=== PATIENT | female | born 1955 | race Caucasian/White ===

== ENCOUNTER → 2017-09-06 13:19 | Outpatient (CLI) | payer OTHER, SELFPAY ==
--- NOTE | 2017-09-06 13:22 | XR_ITS ---
EXAM: XR lumbar spine 2-3V HISTORY: spine compression fracture ITS.REASON: compression fractures ORDERING PHYSICIAN: Piyush Paul MD PATIENT AGE: 62 years COMPARISON: None FINDINGS: No previous exams are available for comparison. There has been prior vertebral plasty at L1 with bone cement along the mid and anterior aspect of L1, some of which may be extruded into the disc space superiorly. There is loss of height anteriorly of L1 of approximately 30-40%. No obvious retropulsion however, the patient is moderately rotated on the lateral view. Mild kyphosis is present at L1. The remaining lumbar spine has an unremarkable appearance aside from mild facet hypertrophic change at L5-S1. 2 mm stone is noted in the upper pole the right kidney IMPRESSION: Prior vertebral plasty at L1 with early percent wedge compression changes.
--- NOTE | 2017-09-06 13:22 | XR_ITS ---
XR pelvis 1-2V HISTORY: Follow-up fracture ITS.REASON: pubic ramus fx ORDERING PHYSICIAN: Piyush Paul MD PATIENT AGE: 62 years COMPARISON: None FINDINGS: A vertical lucency is present to the mid aspect of the left pubic ramus consistent with a nondisplaced fracture.. No previous exams are made available for comparison. IMPRESSION: Nondisplaced left suprapubic ramus fracture
== END ==
PROVIDERS: PCP Family Medicine; Visit Provider Orthopaedic Surgery
DX: S32.599A Other specified fracture of unspecified pubis, initial encounter for closed fracture (principal); S32.000A Wedge compression fracture of unspecified lumbar vertebra, initial encounter for closed fracture
CPT/HCPCS: 72100; 72170

== ENCOUNTER → 2017-10-04 11:18 | Outpatient (CLI) | payer OTHER, SELFPAY ==
--- NOTE | 2017-10-04 11:23 | XR_ITS ---
XR shoulder LT min 2V HISTORY: Left shoulder pain ITS.REASON: Possible fracture ORDERING PHYSICIAN: Piyush Paul MD PATIENT AGE: 62 years COMPARISON: FINDINGS: No fracture or dislocation. No lytic or blastic change. There is normal mineralization. The joint spaces are well-preserved. No significant degenerative/arthritic changes. No erosive changes evident. IMPRESSION: Negative, no acute finding
== END ==
PROVIDERS: PCP Family Medicine; Visit Provider Orthopaedic Surgery
DX: S42.253A Displaced fracture of greater tuberosity of unspecified humerus, initial encounter for closed fracture (principal)
CPT/HCPCS: 73030

== ENCOUNTER 2017-11-15 08:00 | Outpatient (RCR) | payer OTHER, SELFPAY | END 2017-11-15 08:01 | disposition home or self-care (01) | LOC: OT 08:00 | PROVIDERS: Family Provider Family Medicine; PCP Family Medicine; Visit Provider Orthopaedic Surgery | DX: M75.42 Impingement syndrome of left shoulder; M79.602 Pain in left arm | CPT/HCPCS: 97014; 97033; 97110; 97166; G0283 ==

== ENCOUNTER → 2018-05-09 08:48 | Outpatient (CLI) | payer OTHER, SELFPAY ==
--- NOTE | 2018-05-09 08:51 | MM_ITS ---
MM Dig screening mamm BI w/CAD ORDERING PHYSICIAN : Chelsea Nieves PATIENT AGE: 63 years GENDER: Female COMPARISON: I have the technologist again [previous mammograms but apparently they have been purged in accordance with administrative guidelines. There is a Screening CT chest December 2016 only minimal benefit for comparison INDICATION: ITS.REASON: SCREENING no hormones. No new complaints. Noncontributory family history. Patient has had skin cancer. No history of breast cancer with her or family. TECHNIQUE: Standard CC and MLO images were obtained. R2 CAD reviewed. FINDINGS: Moderate breast density bilaterally. Minimal nodularity bilaterally. No suspicious dominant mass or suspicious calcifications. Small likely benign nodule upper outer quadrant right breast. Tiny faint calcifications both breasts most numerous and evident on right- & most likely reflect benign adenosis. Prior studies of been purged with none available for comparison RIGHT BREAST:. No suspicious findings . Likely small benign intramammary node- 4.5 mm smooth margin ovoid density upper-outer quadrant right breast. There are also some small calcifications at the deep central and lateral right breast which are most likely reflecting adenosis however because these features I would suggest a follow-up right mammogram in 6 months to establish baseline stability LEFT BREAST:. No suspicious findings.. Follow-up in one year would be recommended and encouraged IMPRESSION: No prior studies. Moderate density moderate asymmetric breast. Right breast.. Suggest follow-up right mammogram in 6 months-to confirm stability of a small likely intramammary lymph node at upper-outer quadrant;. & Also to confirm baseline stability of numerous tiny scattered faint calcifications most likely reflecting benign adenosis . Left breast. Follow-up one year adequate & should be encouraged. BI-RADS Category: 3 Probably Benign Finding Short Term Follow-up RECOMMENDED FOLLOW-UP: 6M 6 MONTH FOLLOW-UP (A letter has been sent to the patient regarding results of the study.)
== END ==
PROVIDERS: PCP Family Medicine; Visit Provider Nurse Practitioner Women's Health
DX: Z12.31 Encounter for screening mammogram for malignant neoplasm of breast (principal)
CPT/HCPCS: 77067

== ENCOUNTER → 2018-10-11 14:05 | Outpatient (CLI) | payer OTHER, SELFPAY ==
--- NOTE | 2018-10-11 14:11 | MM_ITS ---
MM Dig mamm DX unilat RT CAD INDICATION: 6 month follow-up probably benign findings on last mammogram ORDERING PHYSICIAN: Chelsea Nieves PATIENT AGE: 63 years COMPARISON: 05/09/2018, TECHNIQUE: Standard images performed along with spot compression views and right breast ultrasound FINDINGS: Average fibroglandular tissue. Scattered benign-appearing nodular opacities are once again noted in the outer aspect of the right breast with asymmetric density noted centrally. 2 benign-appearing nodules in the outer right breast 1 mid and one posterior age measuring 5 mm. Asymmetric density in the retroareolar region as seen on the cc view appears to compress out on the one of the spot compression views with some persistent asymmetric density on another spot compression view not readily apparent in the orthogonal plane. No change in the faint calcifications in the central aspect of the breast posteriorly Right breast ultrasound: There is a 9 mm cyst at 8:00 with an additional 3 mm cyst at 7:00. No retroareolar abnormality apparent to correspond to the mammographic area of asymmetric density. IMPRESSION: Probably benign findings. Recommend continued 6 month mammographic and sonographic follow-up. No convincing evidence of malignancy. BI-RADS Category: 3 Probably Benign Finding Short Term Follow-up RECOMMENDED FOLLOW-UP: 6M - 6 MONTH FOLLOW-UP (A letter has been sent to the patient regarding results of the study.)
== END ==
PROVIDERS: PCP Family Medicine; Visit Provider Nurse Practitioner Women's Health
DX: R92.8 Other abnormal and inconclusive findings on diagnostic imaging of breast (principal)
CPT/HCPCS: 76641; 77065

== ENCOUNTER → 2019-05-10 14:10 | Outpatient (CLI) | payer MEDICARE, SELFPAY ==
--- NOTE | 2019-05-10 | US_ITS ---
PROCEDURE: US BREAST RT COMPLETE CLINICAL INDICATION: Six-month follow-up cystic-appearing lesions right breast COMPARISON: BREASTRT US breast RT complete from 10/11/2018 FINDINGS: There are several small benign-appearing cystic lesion with stable appearing lesions at the a 7 8 and 9 o'clock positions. There is new benign-appearing cystic lesion 12 o'clock position near the nipple measuring 0.4 x 0.2 by 0.3 cm. There is a similar benign-appearing tiny cystic lesion at the 3 o'clock position near the nipple measuring 0.3 x 0.3 by 0.4 cm. There is benign-appearing oval hypoechoic cystic-appearing lesion at the 6 o'clock position near the nipple measuring 0.5 by point by 0.6 cm. This could in fact be two small cysts abutting one another. There is a small hypoechoic lesion at the 11 o'clock position near the nipple with internal echoes likely representing a tiny complex cyst measuring 0.4 x 0.3 by 0.4 cm. There is no suspicious solid lesion. There are normal appearing nodes in the axilla. IMPRESSION: Multiple benign-appearing cystic lesions compatible with the findings seen on the mammogram performed the same date and feel no additional evaluation is indicated and recommend the patient continue with yearly screening mammography Dictated by: Dr. Jamie Mera MD 05/13/2019 08:[address] Jamie Mera MD in [place] 05/13/2019 08:39
--- NOTE | 2019-05-10 14:16 | MM_ITS ---
PROCEDURE: MM DIG MAMM BI DX W/CAD CLINICAL INDICATION: Six-month follow-up for nodular lesions right breast COMPARISON: [facility] MM Dig screening mamm BI w/CAD from 05/09/2018 DIG MAMM-DX UNI-RT from 10/11/2018 TECHNIQUE: Spot-compression MLO and CC views, standard MLO and CC views left breast FINDINGS: , scattered fibroglandular densities are seen throughout both breasts. Again noted are small asymmetric nodular densities upper outer quadrant right breast which are stable unchanged from the previous exam. There are few stable tiny nodular densities outer quadrant left breast as well. There is no new or suspicious lesions seen in either breast. Ultrasound of the right breast performed the same date showed stable benign-appearing cystic lesions unchanged from previous ultrasound exam. There are no suspicious microcalcifications. IMPRESSION: Stable six-month follow-up exam right breast and stable yearly screening exam left breast BI-RAD Category: 2 Benign Finding(s) FOLLOW-UP: 1YR 1 Year Follow-up (A letter has been sent to the patient regarding results of the study.) Dictated by: Dr. Jamie Mera MD 05/13/2019 08:[address] Jamie Mera MD in [place] 05/13/2019 08:34
== END ==
PROVIDERS: PCP Family Medicine; Visit Provider Nurse Practitioner Women's Health
DX: R92.8 Other abnormal and inconclusive findings on diagnostic imaging of breast (principal)
CPT/HCPCS: 76641; 77066

== ENCOUNTER → 2019-07-17 09:35 | Outpatient (CLI) | payer MEDICARE, SELFPAY ==
--- NOTE | 2019-07-17 09:40 | XR_ITS ---
PROCEDURE: XR DEXA AXIAL SKELETON CLINICAL HISTORY: POST MENOPAUSAL COMPARISON: No exams were available for comparison FINDINGS: Osteopenia of the left hip with a T-score -2.3 and BMD of 0.658 Osteopenia of right hip with a T-score of -1.9 and BMD of 0.636 Lumbar spine density not accurate due to overlying methylmethacrylate and L1 IMPRESSION: Osteopenia Dictated by: Claudy Tomas MD 07/17/2019 15:46 Electronically signed by Claudy Tomas MD in [place] 07/17/2019 15:46
== END ==
PROVIDERS: PCP Family Medicine; Visit Provider Nurse Practitioner Women's Health
DX: Z78.0 Asymptomatic menopausal state (principal)
CPT/HCPCS: 77080

== ENCOUNTER → 2019-11-06 10:24 | Outpatient (CLI) | payer MEDICARE, SELFPAY | PROVIDERS: PCP Family Medicine; Visit Provider Nurse Practitioner Family | DX: G47.33 Obstructive sleep apnea (adult) (pediatric) (principal) | CPT/HCPCS: 94762 ==

== ENCOUNTER → 2019-11-12 14:34 | Outpatient (CLI) | payer MEDICARE, SELFPAY | PROVIDERS: PCP Family Medicine; Visit Provider Specialist | DX: G47.33 Obstructive sleep apnea (adult) (pediatric) (principal) | CPT/HCPCS: 94762 ==

== ENCOUNTER → 2019-11-13 08:53 | Outpatient (CLI) | payer MEDICARE, SELFPAY ==
[2019-11-13 10:52] LABS: Coronavirus 19 IgG Antibody Negative (Negative); Coronavirus 19 IgM Antibody Negative (Negative)
== END ==
PROVIDERS: Visit Provider Surgery
DX: Z01.818 Encounter for other preprocedural examination (principal); Z12.11 Encounter for screening for malignant neoplasm of colon
CPT/HCPCS: 36415; 86328

== ENCOUNTER 2019-11-14 07:29 | Day surgery (SDC) | payer MEDICARE, SELFPAY ==
--- NOTE | 2019-11-12 11:04 | SUR.PREOP ---
11/12/2019 @ 1100--PHONE CALL MADE TO PATIENT. PATIENT UNDERSTANDS THAT LAB WORK AND COVID TESTING NEEDS TO BE COMPLETED @ 0900 ON 11/13/2019. PATIENT UNDERSTANDS IF LAB WORK AND COVID-19 TESTS ARE NOT COMPLETED BY 12PM ON THAT DATE, THE SURGERY SCHEDULED WILL BE CANCELLED AND RESCHEDULED FOR ANOTHER TIME.
[2019-11-13 12:51] VITALS: BMI 30.2
[2019-11-14 07:45] VITALS: BP 128/62; PULSE 100; RESP 18; TEMP 36.6; O2SAT 94; BMI 30.2
[2019-11-14 08:35] VITALS: O2SAT 94
--- NOTE | 2019-11-14 08:54 | P.PN_ITS ---
[facility] Anesthesia Checklist - Patient Identification Patient Identification: Arm Band, Verbal (Name & ) - Structural Data Admitted From: Home Planned Operative Procedure/s: Colonoscopy Consent for Planned Operative Procedure(s) Verified: Yes Verified Documents: Surgical Consent, History and Physical - NPO Status Verified Time NPO: 00:00 - Chart Verification Results Verified: BMP (serology) - Additional verifications Patient : No Anesthesia Reactions: No - Airway Assessment C-Spine Mobility Assessed: Yes (full neck ROM, TMD 2, MP 2) TMJ Mobility Assessed: Yes Dentition: Dentures-good fit (upper denture removed, lower teeth present several missing) - Neurological Assessment Level of Consciousness: Awake, Alert, Appropriate, Follows Commands Hx Seizures: No Numbness or tingling in extremities: No - Anesthesia Plan Anesthesia Risk discussed: Yes Anesthesia Plan: Verified ASA Class: III Anesthesia Type: MAC [facility] History I have reviewed the patient's past medical history: Yes Medical History: Reports:: Gastroesophageal Reflux Disease(GERD) Denies:: Cancer, Diabetes Mellitus Type 1, Diabetes Mellitus Type 2, Internal Pacemaker, MRSA, Seizures *Have you ever received a pneumonia vaccine?: No *Have you received a flu vaccine this season?: No Other Medical History: Reports: Arthritis, Sinus Problems, Other Comment:: MAGDA uses CPAP, hoarseness Anesthesia experience/problems:: no prior complications Laterality Cases: Bilateral: Carpal Tunnel Release Other Surgeries: Yes: Cholecystectomy, Colonoscopy, Sinus Surgery, Tubal Ligation. No: Pacemaker Amputation: No Fractures: Yes - *Social History Smoking Status: Current every day smoker Tobacco Type: cigarettes # Packs/Day (cigarettes): 1 #Yrs smoked (if former smoker): 40 Alcohol Intake: never Alcohol Intake Frequency:: other Substance Use Type: denies use *Occupational Status:: retired Housing: house Household Members: spouse *Travel in the last 8 weeks: None Family Hx:: No significant family history
[2019-11-14 09:27] VITALS: BP 112/71; PULSE 90; RESP 18; TEMP 36.3; O2SAT 96
--- NOTE | 2019-11-14 09:27 | P.PCN_ITS ---
- Procedure: Date: 11/14/19 Procedure Performed:: Colonoscopy with polypectomy Indications:: History of colon polyps Performing Provider:: Luis Keene MD Referring Provider:: . Sedation:: Monitored anesthesia care Procedure:: After informed consent was obtained the patient was taken to the endoscopy suite. Sedation ensued after the patient was transferred to the left lateral de cubitus position. Pulse, blood pressure, and oxygen saturation were monitored throughout the procedure. Digital rectal exam revealed no significant abnormality. The colonoscope was placed in position. The entire colon was evaluated. The colonoscope was carefully removed and the patient was transferred to recovery in stable condition. Please see findings and specimens below for detail. Findings:: Hemorrhoidal tags/cushions Bowel preparation relatively fair Fairly significant lack of relaxation/spasticity Multiple complex sessile polyps (see specimens) Specimens:: Complex adjacent large sessile polyps (x2) close to ileocecal valve -snared Complex sessile adjacent right colon polyps (x3) -snared Adjacent sessile polyps at 60 cm (x2)?snared Adjacent sessile polyps at 55 cm (x2)?snared Recommendations:: Timing of repeat colonoscopy is pending pathology but will likely be around 1 year secondary to size/nature/number of polyps and spasticity/lack of relaxation. Complications:: No immediate Estimated blood obtained (mL): 1
[2019-11-14 09:37] VITALS: BP 116/78; PULSE 90; RESP 18; TEMP 36.3; O2SAT 95
[2019-11-14 09:47] VITALS: BP 115/78; PULSE 95; RESP 18; TEMP 36.3; O2SAT 97
[2019-11-14 09:59] VITALS: BP 128/98; PULSE 89; RESP 18; TEMP 36.3; O2SAT 95
== END 2019-11-14 09:59 | disposition home or self-care (01) ==
LOC: OUTP 07:30
PROVIDERS: PCP Family Medicine; Visit Provider Surgery
PROC: 0DJD8ZZ Inspection of Lower Intestinal Tract, Via Natural or Artificial Opening Endoscopic (ICD-10-PCS; CPT 45385; principal; 2019-11-14 08:30)
DX: K58.9 Irritable bowel syndrome, unspecified (principal); Z12.11 Encounter for screening for malignant neoplasm of colon; K64.9 Unspecified hemorrhoids; K63.5 Polyp of colon; Z86.010 Personal history of colon polyps; Z88.6 Allergy status to analgesic agent; Z79.899 Other long term (current) drug therapy; I10 Essential (primary) hypertension; M19.90 Unspecified osteoarthritis, unspecified site; G47.33 Obstructive sleep apnea (adult) (pediatric); Z90.49 Acquired absence of other specified parts of digestive tract; Z72.0 Tobacco use
CPT/HCPCS: 45385; 88305

== ENCOUNTER → 2019-11-20 12:09 | Outpatient (CLI) | payer MEDICARE, SELFPAY ==
[2019-11-20 13:16] LABS: Blood Urea Nitrogen 12 mg/dl (7-17); Estimated Glomerular Filt Rate 100 ml/min (>60); GFR (African American) 121 ML/MIN (>60)
== END ==
PROVIDERS: Visit Provider Obstetrics & Gynecology
DX: Z01.818 Encounter for other preprocedural examination (principal)
CPT/HCPCS: 36415; 82565; 84520

== ENCOUNTER → 2019-11-21 08:04 | Outpatient (CLI) | payer MEDICARE, SELFPAY ==
--- NOTE | 2019-11-21 08:14 | CT_ITS ---
PROCEDURE: CT LUNG SCREENING CLINICAL INDICATION: H/O TOBACCO USE Forty pack-year smoking history, asymptomatic for lung cancer COMPARISON: LDCTLCAS LDCT FOR LUNG CA SCREEN from 01/05/2017 TECHNIQUE: The exam was performed on a GE Light Speed [address] scanner using 2.90 mGy CTDI. A low dose helical CT CHEST was performed on a multi-detector scanner. All CT scans at the facility use one or more dose reduction, viz: automated exposure control, ma/kV adjustment per patient size (including targeted exams where dose is matched to indication, i.e. head), or iterative reconstruction technique. The LDCT was performed in a facility that meets the criteria for the screening program. Data regarding this exam was submitted to ACR which is an approved registry. The order for this exam indicates that it came as a result of a lung cancer screening counseling shard decision-making visit that included all the elements required of such a visit including smoking cessation. The radiologist interpreting this exam meets the CMS criteria for the LDCT lung cancer screening program. The exam is reported using the Lung-RADS classification scale and reported to the ACR registry. NOTE: This study was performed for the specific purposes of lung cancer screening and is not an alternative to diagnostic chest CT. RADIATION DOSE: CTDI vol(CT dose Index-volume) = 2.90mG DLP (Dose Length Product) = 105.25 mGcm Lung Rads Category: COPD with centrilobular emphysema and evidence of old granulomatous disease. No suspicious pulmonary nodules evident. Fissural nodule once again noted on the right unchanged. FINDINGS: OTHER FINDINGS: Coronary artery calcifications. Small hiatal hernia. Coronary artery calcifications and a vertebroplasty at L1 with severe wedging and mild kyphosis and minimal retrolisthesis the posterior superior aspect of L1. IMPRESSION: Lung rads category 2, benign. Recommend annual LD CT Dictated by: Claudy Tomas MD 12/02/2019 11:09 Electronically signed by Claudy Tomas MD in [place] 12/02/2019 11:09
--- NOTE | 2019-11-21 08:15 | CT_ITS ---
PROCEDURE: CT ABDOMEN PELVIS WO/W CON CLINICAL INDICATION: RT LOWER QUAD PAIN, Bilateral lower quadrant pain COMPARISON: ABDPELW CT ABD PELVIS W/ CONTRAST from 12/26/2013 TECHNIQUE: IV Contrast: 75ML OPTIRAY 350 Oral Contrast none Axial images obtained with sagittal and coronal reformats. All CT scans at the facility use one or more dose reduction, viz: automated exposure control, ma/kV adjustment per patient size (including targeted exams where dose is matched to indication, i.e. head), or iterative reconstruction technique. FINDINGS: LOWER THORAX: Lung bases are clear. There is mild thickening of the distal esophagus with small hernia. ABDOMEN & PELVIS: There are at least 2 hypodense lesions of the left lobe of the liver measuring approximately 4 mm and may be due to small cysts. There has been a prior cholecystectomy. There are multiple calcified splenic granulomas. The adrenal glands and pancreas have an unremarkable appearance. 4 mm stone is present in the lower pole of the right kidney nonobstructing. There is mild prominence of the renal pelves bilaterally. No ureteral calculi. No renal mass. No evidence of appendicitis or diverticulitis. No pelvic mass or abnormal fluid collection. The bowel gas pattern is nonspecific. Severe wedge compression changes noted involving the L1 vertebral body. There has been prior vertebroplasty at L1. There is minimal retrolisthesis of posterior superior aspect of L1 by approximately 4 mm IMPRESSION: 1. No acute abdominal or pelvic findings. 2. Nonobstructing right nephrolithiasis. 3. Chronic wedge compression changes of L1 with retropulsion of the posterior superior aspect status post prior vertebroplasty Dictated by: Claudy Tomas MD 11/22/2019 10:22 Electronically signed by Claudy Tomas MD in [place] 11/22/2019 10:22
== END ==
PROVIDERS: PCP Family Medicine; Visit Provider Obstetrics & Gynecology
DX: Z87.891 Personal history of nicotine dependence (principal); Z12.2 Encounter for screening for malignant neoplasm of respiratory organs; R10.31 Right lower quadrant pain
CPT/HCPCS: 74178; Q9967

== ENCOUNTER → 2020-06-23 08:36 | Outpatient (CLI) | payer MEDICARE, SELFPAY ==
[2020-06-23 09:41] LABS: Coronavirus 19 IgG Antibody Positive (Negative)
[2020-06-23 09:43] LABS: Coronavirus 19 IgM Antibody Positive (Negative)
[2020-06-24 09:14] LABS: Covid-19 Nasal PCR Sendout P&C NEGATIVE
== END ==
PROVIDERS: Visit Provider Surgery
DX: Z86.16 Personal history of COVID-19 (principal); Z11.52 Encounter for screening for COVID-19
CPT/HCPCS: 36415; 86328; U0004

== ENCOUNTER → 2020-07-14 09:51 | Outpatient (CLI) | payer MEDICARE, SELFPAY ==
[2020-07-14 12:33] LABS: Coronavirus 19 IgG Antibody Negative (Negative); Coronavirus 19 IgM Antibody Negative (Negative)
== END ==
PROVIDERS: Visit Provider Surgery
DX: Z01.812 Encounter for preprocedural laboratory examination (principal); Z20.822 Contact with and (suspected) exposure to COVID-19; Z12.11 Encounter for screening for malignant neoplasm of colon; Z86.010 Personal history of colon polyps
CPT/HCPCS: 86328

== ENCOUNTER 2020-07-16 06:20 | Day surgery (SDC) | payer MEDICARE, SELFPAY ==
[2020-07-13 12:56] VITALS: BMI 31.1
[2020-07-16 06:59] VITALS: BP 131/78; PULSE 92; RESP 18; TEMP 36.2; O2SAT 93
[2020-07-16 08:10] VITALS: BP 96/59; PULSE 80; RESP 18; TEMP 36.5; O2SAT 92
--- NOTE | 2020-07-16 08:10 | HMH.SCOPE ---
- Procedure: Date: 07/16/20 Patient Date of :: 1955 Procedure Performed:: Colonoscopy with polypectomy Indications:: History of multiple complex polyps History of significant spasticity/lack of relaxation on colonoscopy from December 2019 Performing Provider:: Luis Keene MD Referring Provider:: . Sedation:: Monitored anesthesia care Procedure:: After informed consent was obtained the patient was taken to the endoscopy suite. Sedation ensued after the patient was transferred to the left lateral decubitus position. Pulse, blood pressure, and oxygen saturation were monitored throughout the procedure. Digital rectal exam revealed no significant abnormality. The colonoscope was placed in position. The entire colon was evaluated. The colonoscope was carefully removed and the patient was transferred to recovery in stable condition. Please see findings and specimens below for detail. Findings:: Bowel preparation relatively fair Persistent severe lack of relaxation Moderate to severe spasticity Multiple polyps (see specimens) Specimens:: Small polyp at ileocecal valve Transverse colon polyp Sessile 7 mm polyp at 40 cm (snare) Biopsies of hyperplastic-appearing polyps at 20 cm Recommendations:: Timing of repeat colonoscopy is pending pathology but will likely be between 1-2 years secondary to history of significant polyps and persistent significant lack of relaxation. Complications:: No immediate Estimated blood obtained (mL): 1
[2020-07-16 08:20] VITALS: BP 92/69; PULSE 84; RESP 18; TEMP 36.5; O2SAT 99
--- NOTE | 2020-07-16 08:23 | HMH.ANESCL ---
[facility] Anesthesia Checklist - Structural Data Admitted From: Home Planned Operative Procedure/s: colonoscopy Consent for Planned Operative Procedure(s) Verified: Yes - Additional verifications Anesthesia Reactions: No - Airway Assessment C-Spine Mobility Assessed: Yes TMJ Mobility Assessed: Yes Dentition: Poor Dentition - Neurological Assessment Level of Consciousness: Awake, Alert, Appropriate - Anesthesia Plan Anesthesia Risk discussed: Yes Anesthesia Plan: Verified ASA Class: III Anesthesia Type: MAC [facility] History I have reviewed the patient's past medical history: Yes Medical History: Reports:: Cancer (skin), Gastroesophageal Reflux Disease(GERD), Hypertension Denies:: Diabetes Mellitus Type 1, Diabetes Mellitus Type 2, Internal Pacemaker, MRSA, Seizures *Have you ever received a pneumonia vaccine?: No *Have you received a flu vaccine this season?: No Other Medical History: Reports: Arthritis, Sinus Problems, Other Anesthesia experience/problems:: none Laterality Cases: Bilateral: Carpal Tunnel Release Other Surgeries: Yes: Cholecystectomy, Colonoscopy, Sinus Surgery, Tubal Ligation. No: Pacemaker Amputation: No Fractures: Yes - *Social History Last grade of school completed: High school graduate Smoking Status: Current every day smoker Tobacco Type: cigarettes # Packs/Day (cigarettes): 1 #Yrs smoked (if former smoker): 40 Alcohol Intake: never Alcohol Intake Frequency:: other Substance Use Type: denies use *Occupational Status:: retired Housing: house Household Members: spouse *Travel in the last 8 weeks: None Family Hx:: No significant family history
[2020-07-16 08:30] VITALS: BP 125/77; PULSE 81; RESP 18; TEMP 36.5; O2SAT 98
[2020-07-16 08:45] VITALS: BP 133/82; PULSE 77; RESP 18; TEMP 36.5; O2SAT 99
== END 2020-07-16 08:45 | disposition home or self-care (01) ==
LOC: OUTP 06:22
PROVIDERS: PCP Family Medicine; Visit Provider Surgery
PROC: 0DJD8ZZ Inspection of Lower Intestinal Tract, Via Natural or Artificial Opening Endoscopic (ICD-10-PCS; CPT 45380; principal; 2020-07-16 07:30)
DX: Z12.11 Encounter for screening for malignant neoplasm of colon (principal); K58.9 Irritable bowel syndrome, unspecified; Z86.010 Personal history of colon polyps; K63.5 Polyp of colon; Z87.19 Personal history of other diseases of the digestive system; Z85.828 Personal history of other malignant neoplasm of skin; I10 Essential (primary) hypertension; K21.9 Gastro-esophageal reflux disease without esophagitis; Z72.0 Tobacco use; Z79.899 Other long term (current) drug therapy
CPT/HCPCS: 45380; 45385; 88305

== ENCOUNTER → 2020-07-21 10:14 | Outpatient (CLI) | payer MEDICARE, SELFPAY ==
--- NOTE | 2020-07-21 10:17 | MM_ITS ---
PROCEDURE: MM DIG SCREENING MAMM BI W/CAD Referring Doctor: Chelsea Nieves Patient Age:65Y CLINICAL INDICATION: SCREENING The 65-year-old routine screening. No hormones, no new complaints Noncontributory, negative family history the COMPARISON: CT LDCTLCAS LDCT FOR LUNG CA SCREEN from 01/05/2017 [facility] MM Dig screening mamm BI w/CAD from 05/09/2018 MG DIG MAMM-DX UNI-RT from 10/11/2018 US BREASTRT US breast RT complete from 10/11/2018 MG MM DIG MAMM BI DX W/CAD from 05/10/2019 US US BREAST RT COMPLETE from 05/10/[address] LUNG SCREENING from 11/21/2019 TECHNIQUE: Standard CC and MLO images were obtained. R2 CAD reviewed. Bilateral digital breast tomosynthesis included. FINDINGS: Moderate density heterogeneous breast pattern bilateral. Moderate heterogeneous scattered fibroglandular elements. No suspicious calcifications LEFT BREAST-there is a 9.6 the the the the the the mm round density upper-outer quadrant left breast towards 1 o'clock position, labeled X. It has become apparent since previous studies. Well-marginated probably reflecting benign cyst but would recommend ultrasound, along with and spot cc, spot MLO and full 90 degree view left breast to further evaluate Other areas of asymmetric density are most likely stable fibroglandular elements of but can be evaluated as well RIGHT BREAST- On today's MLO views and MLO tomosynthesis there small area of increased density retroareolar region on the right breast.. Which I believe is been seen on previous studies and dissipates on subsequent cc views . However a I would suggest ultrasound right breast to further evaluate a probable debris-filled cyst at 11 o'clock at the retroareolar region seen on previous April 2019 ultrasound. Thus suggest a repeat ultrasound right breast as well when the patient returns with spot views if any areas persist . Other minor asymmetric areas of density at the deeper portions right breast are most likely stable for features; multiple small cyst to been seen in right breast on previous ultrasound studies IMPRESSION: 1. Left breast--new round nearly 10 mm ovoid density 1 o'clock position left breast -. By far most likely a developing new benign cyst -Recommend ultrasound left breast along, with subsequent spot views of this area as discussed in text above 2.. Right breast-the the the the small focal area of density retroareolar region MLO view appears to be a stable feature but would recommend ultrasound right breast as well when the patient returns to further survey this area as well BI-RAD Category: 0 Need Additional Imaging Evaluation FOLLOW-UP: IMM Immediate Follow-up Recommended Bilateral breast ultrasound, followed by additional mammography spot views left breast. (Added spot views on right breast only if needed after ultrasound) (A letter has been sent to the patient regarding results of the study.) Dictated by: Jimi Issa MD 07/28/2020 09:00 Jimi Issa MD in [place] 07/28/2020 09:00
== END ==
PROVIDERS: PCP Family Medicine; Visit Provider Nurse Practitioner Women's Health
DX: Z12.31 Encounter for screening mammogram for malignant neoplasm of breast (principal)
CPT/HCPCS: 77063; 77067

== ENCOUNTER → 2020-08-13 13:14 | Outpatient (CLI) | payer MEDICARE, SELFPAY ==
--- NOTE | 2020-08-13 13:34 | MM_ITS ---
PROCEDURE: MM DIG MAMM DX UNILAT LT CAD Digital Breast Tomosynthesis Included CLINICAL INDICATION: LT NEW 10 MM ROUNDED LESION 1:00 COMPARISON: MG DIG MAMM-DX UNI-RT from 10/11/2018 MG MM DIG MAMM BI DX W/CAD from 05/10/2019 US US BREAST RT COMPLETE from 05/10/2019 MG MM DIG SCREENING MAMM BI W/CAD from 07/21/2020 US US BREAST RT COMPLETE from 08/13/2020 US US BREAST LT COMPLETE from 08/13/2020 TECHNIQUE: Spot-compression views of the left breast and bilateral breast ultrasound. FINDINGS: There is a 9 mm nodule within the upper outer aspect of the left breast near the nipple. This corresponds to the abnormality noted on the screening mammogram. Left breast ultrasound: A complicated cyst is present at the 1 o'clock region of the left breast measuring 9 by 11 mm. The main portion of the cyst measures approximately 8 mm with a small daughter cyst along the left lateral aspect at 3 mm. This may be related to 2 separate cyst or 1 small complex cyst probably benign. At 2 o'clock there is a 3 mm cyst. At 3 o'clock there is a 4 mm hypoechoic nodule which may be due to a cyst with some low level echoes. At 11 o'clock there is a 4 by 3 mm hypoechoic nodule which may be due to a cyst with some low level echoes/debris. Right breast ultrasound: At 12 o'clock there is a hypoechoic nodule measuring 4 mm similar to the previous exam. At 1 o'clock there is a 4 mm hypoechoic nodule which may represent a debris-filled cyst. At 6 o'clock there is a complicated cyst at 6 mm similar to the previous exam. At 7 o'clock there is a 6 mm complicated cyst. At 9 o'clock there is a 3 mm cyst. At 11 o'clock there is a 4 mm hypoechoic nodule with low level echoes and may represent a debris-filled cyst. IMPRESSION: Bilateral complicated cyst. Probably benign. Recommend bilateral 6 month mammographic and sonographic follow-up BI-RAD Category: 3 Probably Benign Finding Short Term Follow-up FOLLOW-UP: 6M 6Month Follow-up (A letter has been sent to the patient regarding results of the study.) Dictated by: Claudy Tomas MD 08/18/2020 11:00 Claudy Tomas MD in [place] 08/18/2020 11:00
== END ==
PROVIDERS: PCP Family Medicine; Visit Provider Nurse Practitioner Women's Health
DX: R92.8 Other abnormal and inconclusive findings on diagnostic imaging of breast (principal)
CPT/HCPCS: 76641; 77061; 77065; G0279

== ENCOUNTER → 2020-11-24 08:08 | Outpatient (CLI) | payer MEDICARE, SELFPAY ==
--- NOTE | 2020-11-24 08:11 | CT_ITS ---
PROCEDURE: CT LUNG SCREENING CLINICAL INDICATION: H/O NICOTINE DEPENDENCE COMPARISON: CT CT ABDOMEN PELVIS WO/W CON from 11/21/[address] LUNG SCREENING from 11/21/2019 TECHNIQUE: The exam was performed on a GE Light Speed [address] scanner using 2.90 mGy CTDI. A low dose helical CT CHEST was performed on a multi-detector scanner. All CT scans at the facility use one or more dose reduction, viz: automated exposure control, ma/kV adjustment per patient size (including targeted exams where dose is matched to indication, i.e. head), or iterative reconstruction technique. The LDCT was performed in a facility that meets the criteria for the screening program. Data regarding this exam was submitted to ACR which is an approved registry. The order for this exam indicates that it came as a result of a lung cancer screening counseling shard decision-making visit that included all the elements required of such a visit including smoking cessation. The radiologist interpreting this exam meets the CMS criteria for the LDCT lung cancer screening program. The exam is reported using the Lung-RADS classification scale and reported to the ACR registry. NOTE: This study was performed for the specific purposes of lung cancer screening and is not an alternative to diagnostic chest CT. RADIATION DOSE: CTDI vol(CT dose Index-volume) = 2.90mG DLP (Dose Length Product) = mGcm FINDINGS: Calcified granulomata again noted in the left lung. No discrete pulmonary nodules. Scattered emphysematous changes with mild bibasilar scar versus atelectasis. No ground-glass opacities in the lungs or pulmonary consolidation. No pleural effusion or pneumothorax. Heart is not enlarged. No pericardial effusion or thickening. A few small non-specific middle mediastinal lymph nodes not pathologically enlarged. Airways are patent. Some calcification of the thoracic aorta without aneurysm. Images of the upper abdomen show small retrocardiac hiatal hernia. Multiple calcifications in the spleen. No adrenal mass. Gallbladder surgically absent. Some diffuse degenerative changes of the thoracic spine. Prior vertebroplasty of L1 compression fracture again noted. OTHER FINDINGS: No other pertinent findings evident. IMPRESSION: Lung-RADS Category 2 Benign Appearance or Behavior Follow-up: Serial follow-up in 1 year. Scattered emphysematous changes with bibasilar scar versus atelectasis. No discrete pulmonary nodules noted. Dictated by: Piyush Worley MD 11/25/2020 09:06 Piyush Worley MD in [place] 11/25/2020 09:06
== END ==
PROVIDERS: PCP Family Medicine; Visit Provider Family Medicine
DX: Z87.891 Personal history of nicotine dependence (principal); Z12.11 Encounter for screening for malignant neoplasm of colon
CPT/HCPCS: 71271

== ENCOUNTER → 2021-02-16 13:39 | Outpatient (CLI) | payer MEDICARE, SELFPAY ==
--- NOTE | 2021-02-16 13:43 | MM_ITS ---
PROCEDURE: MM DIG MAMM BI DX W/CAD Digital Breast Tomosynthesis Included RIGHT BREAST ULTRASOUND COMPLETE LEFT BREAST ULTRASOUND COMPLETE CLINICAL INDICATION: MULTIPLE CYSTS OF BREAST COMPARISON: MG SCBI MM Dig screening mamm BI w/CAD from 05/09/2018 MG DIG MAMM-DX UNI-RT from 10/11/2018 MG MM DIG MAMM BI DX W/CAD from 05/10/2019 MG MM DIG SCREENING MAMM BI W/CAD from 07/21/2020 MG MM DIG MAMM DX UNILAT LT CAD from 08/13/2020 US US BREAST RT COMPLETE from 08/13/2020 US US BREAST LT COMPLETE from 08/13/2020 US US BREAST LT COMPLETE from 02/16/2021 US US BREAST RT COMPLETE from 02/16/2021 TECHNIQUE: Standard CC and MLO images and 3D Tomosynthesis was obtained. R2 CAD reviewed. Bilateral breast ultrasound FINDINGS: The breasts are heterogeneously dense which may obscure small masses. Right breast: Numerous small nodular opacities are present not significantly changed benign-appearing in nature. Pleomorphic calcifications are present in the deep aspect of the right breast in a somewhat linear pattern. Biopsy suggested. Right breast ultrasound: At 12 o'clock near the nipple there is a 5 mm cyst. At 1 o'clock near the nipple there is a 5 x 3 mm complicated cyst. 6 mm cyst is present at 6 o'clock. Five mm cyst at 7 o'clock. 3 mm cyst 9 o'clock. 4 mm cyst at 11 o'clock. Left breast: 10 mm well-circumscribed nodule in the lateral periareolar region. There is a new cluster of calcifications in the 6 o'clock region of the left breast posterior 1/3 a few of which are somewhat pleomorphic. Biopsy is suggested. Left breast ultrasound: At 1 o'clock there is a complicated cyst at 1 x 1 cm corresponding to the mammographic abnormality. 5 mm cyst at 2 o'clock, 4 mm cyst at 3 o'clock, complicated cyst at 6 o'clock at 7 mm IMPRESSION: Bilateral suspicious calcifications. Bilateral stereotactic biopsy suggested BI-RAD Category: 4 Suspicious Abnormality-Biopsy Considered FOLLOW-UP: BIO Biopsy Recommended the (A letter has been sent to the patient regarding results of the study.) Dictated by: Claudy Tomas MD 02/25/2021 07:42 Claudy Tomas MD in [place] 02/25/2021 07:42
== END ==
PROVIDERS: PCP Family Medicine; Visit Provider Nurse Practitioner Women's Health
DX: N60.19 Diffuse cystic mastopathy of unspecified breast (principal); R92.8 Other abnormal and inconclusive findings on diagnostic imaging of breast
CPT/HCPCS: 76641; 77061; 77062; 77065; 77066; G0279

== ENCOUNTER → 2021-02-23 10:40 | Outpatient (CLI) | payer SELFPAY | PROVIDERS: PCP Family Medicine; Visit Provider Family Medicine | DX: R92.8 Other abnormal and inconclusive findings on diagnostic imaging of breast (principal) ==

== ENCOUNTER → 2021-03-15 09:17 | Outpatient (CLI) | payer MEDICARE, SELFPAY ==
--- NOTE | 2021-03-15 09:22 | MM_ITS ---
PROCEDURE: MM STEREOTACTIC LOC RT MM CLIP PLACEMENT MM SURGICAL SPECIMEN CLINICAL INDICATION: ABN MAMM Suspicious calcifications in the posterior 1/3 central aspect of the right breast at 6 o'clock region inferiorly. TECHNIQUE: Time-out procedure was performed and informed consent was signed. 1 mg of Xanax, Lortab 5 mg, and analgesia and minor sedation. The patient was placed on the stereotactic table and the 6 o'clock calcifications were localized in the most appropriate projection. The breast was prepped in the routine manner, with sterile prep and the overlying skin anesthetized. A 3 to 4 mm skin incision was performed and the 9 gauge [employer] vacuum-assisted core biopsy needle was advanced to the region of the calcification. Pre- and post fire images were obtained. After adequate positioning relative to the calcifications was ensured, multiple biopsies were obtained in the region of the calcifications specifically. The core biopsies obtained were sent for specimen mammography. The patient tolerated the procedure well without complications. Specimen was sent for pathologic analysis . A tiny titanium nonferromagnetic MicroMark was positioned through the mammotome needle into the biopsy site. Pathology: Numerous microcalcifications with a focus of sclerosing adenosis. Negative for atypia or malignancy. IMPRESSION: 1. Successful stereotactic vacuum-assisted core biopsy of the breast calcifications. 2. Successful placement of a titanium metal MicroMark. 3. Pathologic analysis should be forthcoming within 3 working days. 4. No noted complications. SPECIMEN RADIOGRAPH: The mammographically evident calcifications from the prior study are currently evident within the Abiel dish and within the specimens obtained during mammotome procedure. This is considered an adequate specimen and the procedure was terminated. IMPRESSION: Successful removal of described breast calcifications. BREAST MAMMOGRAM: Compared to the prior study, the previously noted calcification have been removed. A small MicroMark clip was inserted into the region of the calcifications. There is evidence of soft tissue changes in the region of the biopsy was soft tissue gas and edema. 5. Adequate placement of the MicroMark clip postbiopsy. 6. Postbiopsy changes within the breast. 7. Recommend six-month mammographic follow-up per routine protocol Dictated by: Claudy Tomas MD 03/22/2021 08:01 Claudy Tomas MD in [place] 03/22/2021 08:01
--- NOTE | 2021-03-15 09:22 | MM_ITS ---
PROCEDURE: MM STEREOTACTIC LOC LT MM CLIP PLACEMENT MM SURGICAL SPECIMEN CLINICAL INDICATION: ABN MAMM Bilateral suspicious calcifications. TECHNIQUE: Suspicious calcifications noted in the posterior 1/3 of the left breast slightly inferior toward the 6 o'clock region. These were targeted for biopsy. The patient was given 1 mg of Xanax, Lortab 5 mg, and analgesia and minor sedation. The patient was placed on the stereotactic table and the abnormality was localized in the most appropriate projection. The breast was prepped in the routine manner, with sterile prep and the overlying skin anesthetized. A 3 to 4 mm skin incision was performed and the 9 gauge [employer]orus vacuum-assisted core biopsy needle was advanced to the region of the calcification. Pre- and post fire images were obtained. After adequate positioning relative to the calcifications was ensured, multiple biopsies were obtained in the region of the calcifications specifically. The core biopsies obtained were sent for specimen mammography. After the calcifications were indeed identified on the specimen mammogram, the procedure was terminated. The patient tolerated the procedure well without complications. A tiny titanium nonferromagnetic MicroMark was positioned through the mammotome needle into the biopsy site. Cytology: Small fibroadenoma with associated microcalcifications. Negative for atypical hyperplasia/malignancy. IMPRESSION: 1. Successful stereotactic vacuum-assisted core biopsy of the breast calcifications. 2. Successful placement of a titanium metal MicroMark. 3. Pathologic analysis showing benign findings. 4. No noted complications. SPECIMEN RADIOGRAPH: The mammographically evident calcifications from the prior study are currently evident within the Abiel dish and within the specimens obtained during mammotome procedure. This is considered an adequate specimen and the procedure was terminated. Six IMPRESSION: Successful removal of described breast calcifications. BREAST MAMMOGRAM: Compared to the prior study, the previously noted calcification have been removed. A small MicroMark clip was inserted into the region of the calcifications. There is evidence of soft tissue changes in the region of the biopsy was soft tissue gas and edema. 5. Adequate placement of the MicroMark clip postbiopsy. 6. Postbiopsy changes within the breast. 7. Recommend six-month follow-up per routine protocol Dictated by: Claudy Tomas MD 03/22/2021 07:56 Claudy Tomas MD in [place] 03/22/2021 07:56
== END ==
PROVIDERS: PCP Family Medicine; Visit Provider Nurse Practitioner Women's Health
DX: R92.8 Other abnormal and inconclusive findings on diagnostic imaging of breast (principal)
CPT/HCPCS: 19081; 76098; 77065; 88305; 88342

== ENCOUNTER → 2021-11-30 08:00 | Outpatient (CLI) | payer MEDICARE, SELFPAY ==
--- NOTE | 2021-11-30 08:03 | MM_ITS ---
PROCEDURE INFORMATION: Exam: MG Bilateral Screening 3D Mammography Exam date and time: 11/30/2021 8:00 AM Age: 66 years old Clinical indication: Screening examination TECHNIQUE: Imaging protocol: Bilateral Screening tomosynthesis and 2D mammography including computer-aided detection (CAD) when performed. COMPARISON: 1. MG MM CLIP PLACEMENT RT 03/15/2021 12:25 PM 2. MG MM CLIP PLACEMENT LT 03/15/2021 12:23 PM FINDINGS: MAMMOGRAPHY: Breast composition: The breast is heterogeneously dense, which may obscure small masses. Mass: None. Architectural distortion: No new or suspicious architectural distortion. Calcifications: No new or suspicious calcifications are present Asymmetric density: No new or suspicious asymmetric density is present Skin thickening: None. Axillary adenopathy: None. Other findings: Stable postoperative findings on the left. IMPRESSION: No mammographic evidence of malignancy. Recommend annual screening mammography unless otherwise clinically indicated. ASSESSMENT: BI-RADS category 2: Benign
== END ==
PROVIDERS: PCP Family Medicine; Visit Provider Obstetrics & Gynecology
DX: Z12.31 Encounter for screening mammogram for malignant neoplasm of breast (principal)
CPT/HCPCS: 77063; 77067

== ENCOUNTER 2022-01-31 15:15 | Emergency (ER) | payer MEDICARE, SELFPAY ==
[2022-01-31 16:10] VITALS: BP 138/77; PULSE 80; RESP 18; TEMP 36.8; O2SAT 98; BMI 32.5
--- NOTE | 2022-01-31 16:49 | HMH.EDUTC ---
[facility] Disposition Clinical Impression: COVID-19 Disposition: Home, Self-Care Condition on Discharge: Good Instructions: DI for COVID-19 (Suspected or Confirmed ), Preventing the Spread of Coronavirus Discharge Instructions Additional Instructions: Drink plenty of fluids. Take tylenol or ibuprofen for pain or fever. Take the medications as directed. Follow up with your regular doctor. GO TO THE ER FOR ANY WORSENING SYMPTOMS Quarantine until you know the results of your covid-19 test. Notify your school or workplace of your results and follow their instructions regarding return to work/school. Prescriptions: Ondansetron [Zofran 4mg ODT] 4 mg PO Q8HP PRN #20 tab PRN Reason: Nausea Transmission Status: Received by [facility] #[id number] Benzonatate [Benzonatate 100mg cap] 100 mg PO TIDP PRN #30 cap PRN Reason: Cough Transmission Status: Received by [facility] #[id number] Nirmatrelvir/Ritonavir [Paxlovid 2X150 mg-100 mg (Eua)] 1 packet PO DIRECTED 5 Days #1 packet Transmission Status: Received by [facility] #[id number] Referrals: Luis Hatfield MD [Primary Care Provider] - Time of Disposition: 17:01 Medical Decision Making - Medical Records Medical records reviewed: No: I reviewed the patient's medical records. - Ulisses Inquiry Pt receiving controlled substance: No Vital Signs: 01/31/22 16:10 01/31/22 17:04 Temperature 98.3 F 98.3 F Temperature Source Oral Pulse Rate 80 Pulse Rate [Right Brachial] 80 Respiratory Rate 18 18 Blood Pressure 138/77 Blood Pressure [Right Arm] 138/77 Blood Pressure Mean [Right Arm] 97 Blood Pressure Source [Right Arm] Automatic Cuff Blood Pressure Position [Right Arm] Sitting 02 Sat by Pulse Oximetry 98 Oxygen Delivery Method Room Air - Lab Data Lab results reviewed: Yes: I reviewed the patient's lab results. [facility] HPI - General Stated complaint: covid test Time Seen by Provider: 01/31/22 16:50 Mode of Arrival: Ambulatory Source of Information: Patient Limitations: No Limitations Description of Symptoms (Recalled from Triage Doc. by RN): PATIENT C/O HEADACHE, COUGH, CHILLS. SHE REPORTS A POSITIVE AT HOME COVID TEST HEENT Symptoms (Recalled from RN notes): Yes Resp Symptoms (Recalled from RN notes): Yes Skin Symptoms (Recalled from RN notes): No MS Symptoms (Recalled from RN notes): No Functional Status (Recalled from RN notes): WNL - History of Present Illness Provider Complaint: She states that for the past 2 day she has had sinus congestion, body aches, chills and she has felt bad. She tested + for covid-19 last night on a home test. - Related Data Home Medications Medication Instructions Recorded Confirmed gzgomqew-wlebqyf-dit-iron 18 mg-FA 1 tab PO DAILY 09/06/17 07/22/20 400 mcg-vit K 80 mcg-hrb#244 tablet famotidine 20 mg tablet 20 mg PO DAILY tab 11/06/19 07/22/20 Previous Rx's Medication Instructions Recorded peg 3350-electrolytes 236 240 ml PO Q10M #4000 ml 12/29/21 gram-22.74 gram-6.74 gram-5.86 gram solution Benzonatate [Benzonatate 100mg 100 mg PO TIDP PRN #30 cap 01/31/22 cap] Nirmatrelvir/Ritonavir [Paxlovid 1 packet PO DIRECTED 5 Days #1 01/31/22 2X150 mg-100 mg (Eua)] packet Ondansetron [Zofran 4mg ODT] 4 mg PO Q8HP PRN #20 tab 01/31/22 Allergies Allergy/AdvReac Type Severity Reaction Status Date / Time codeine Allergy Intermediate NA-NAUSEA/V Verified 07/22/20 11:30 OMITING - Worker's Comp Is this a Worker's Comp case?: No [facility] History - Hepatitis A Screen Attestation statement:: This patient has been screened for Hepatitis A risk factors. I have reviewed the patient's past medical history: Yes Medical History: Reports:: Cancer, Gastroesophageal Reflux Disease(GERD), Hypertension Denies:: Diabetes Mellitus Type 1, Diabetes Mellitus Type 2, Internal Pacemaker, MRSA, Seizures Other Medical History: Reports: Arthritis, Sinu
[2022-01-31 17:04] VITALS: BP 138/77; PULSE 80; RESP 18; TEMP 36.8; O2SAT 98
== END 2022-01-31 17:10 | disposition home or self-care (01) ==
PROVIDERS: Emergency Provider Nurse Practitioner Family; PCP Family Medicine
DX: U07.1 COVID-19 (principal)
CPT/HCPCS: 99212; C9803; G0463; U0003; U0005

== ENCOUNTER → 2022-09-14 08:16 | Outpatient (CLI) | payer MEDICARE, SELFPAY ==
--- NOTE | 2022-09-14 08:20 | CT_ITS ---
FINAL REPORT CLINICAL HISTORY: SMOKES 1/2-1 PACK PER DAY FOR 50 YRS, PRIOR HX OF SKIN CANCER, NO HX OF LUNG CANCER COMPARISON: 11/24/2020 FINDINGS: Low-Dose Chest CT Axial images were obtained from the lung apex to the mid abdomen by computed tomography. Low-dose protocol was utilized. CTDI vol (mGy): 2.90 DLP (mGy-cm): 116.72 There is no axillary adenopathy. There is no hilar or mediastinal adenopathy. The heart is proper size. There are moderate vascular calcifications in the aortic arch. There is no pericardial or pleural effusion. Lung window images demonstrate calcified granulomas in the left upper lobe. There are tiny pleural based nodules in the periphery of the left upper lobe measuring up to 3 mm in greatest diameter, stable. This finding is well seen on images 28-36 of series 4. There is ground-glass opacity in the periphery of the right upper lobe which measures approximately 9 mm greatest diameter. This may be slightly more evident than on the previous exam and is well seen on image 30 of series 4. Limited images of the upper abdomen are unremarkable. IMPRESSION: Stable tiny pleural based densities in the periphery of the left upper lobe. Slightly increase in ground-glass opacity in the right upper lobe. Lung RADS category 2. Recommend 12 month follow-up low-dose chest CT. Reviewed, Interpreted and Dictated by Boyd Stuart MD Transcribed by Shana Bowen Authenticated and [facility]
--- NOTE | 2022-09-14 08:21 | XR_ITS ---
FINAL REPORT TECHNIQUE: Bone densitometry calculations of the lumbar spine and left hip were obtained. CLINICAL HISTORY: post menopausal COMPARISON: 07/17/2019 FINDINGS: Using L1-4, the bone mineral density of the spine is 0.820, was 1.060 g/cm2, corresponding to T-score of -1.8, was 0.1. Using the left hip, the bone mineral density of the femoral neck is 0.664, was 0.658 g/cm2, corresponding to a T-score of -2.3, was -2.3. Using the right hip, the bone mineral density of the femoral neck is 0.628, was 0.636 g/cm2, corresponding to a T-score of -2.0, was -1.9. NOTE: T-score: Standard deviation compared with peak bone mass of young adult mean. *Following the recommendations of the International Society of Bone densitometry, classification of hip BMD is based on the lower of two T-scores; total hip or femoral neck. IMPRESSION: Diminished bone mineral density of the lumbar spine and left hip consistent with osteopenia. FRAX was not reported because patient is being treated for osteoporosis. Reviewed, Interpreted and Dictated by Boyd Stuart MD Transcribed by Deena Gipson Authenticated and [facility]
== END ==
PROVIDERS: PCP Family Medicine; Visit Provider Obstetrics & Gynecology
DX: Z87.891 Personal history of nicotine dependence (principal); Z12.2 Encounter for screening for malignant neoplasm of respiratory organs; Z78.0 Asymptomatic menopausal state; M85.80 Other specified disorders of bone density and structure, unspecified site
CPT/HCPCS: 71271; 77080

== ENCOUNTER → 2022-11-04 10:55 | Outpatient (CLI) | payer MEDICARE, SELFPAY ==
--- NOTE | 2022-11-04 11:04 | XR_ITS ---
FINAL REPORT CLINICAL HISTORY: LT KNEE PAIN FINDINGS: Three views of the left knee reveal no evidence of fracture or dislocation. The bony alignment is normal. Mild degenerative change is noted. There is no evidence of joint effusion. Mild vascular calcification IMPRESSION: No acute abnormality identified. Reviewed, Interpreted and Dictated by Leonardo Corrales III, MD Transcribed by Colleen Duran Authenticated and [facility]
--- NOTE | 2022-11-04 11:04 | XR_ITS ---
FINAL REPORT CLINICAL HISTORY: RT KNEE PAIN FINDINGS: Three views of the right knee reveal no evidence of fracture or dislocation. The bony alignment is normal. The joint spaces are preserved. There is no evidence of joint effusion. Mild vascular calcifications are noted. IMPRESSION: No acute abnormality identified. Reviewed, Interpreted and Dictated by Leonardo Corrales III, MD Transcribed by Colleen Duran Authenticated and [facility]
== END ==
PROVIDERS: PCP Family Medicine; Visit Provider Family Medicine
DX: M25.561 Pain in right knee (principal); M25.562 Pain in left knee
CPT/HCPCS: 73562

== ENCOUNTER → 2023-04-04 13:32 | Outpatient (CLI) | payer MEDICARE, SELFPAY ==
--- NOTE | 2023-04-04 13:32 | US_ITS ---
FINAL REPORT CLINICAL HISTORY: decreased sensation/pain COMPARISON: None FINDINGS: ANKLE-BRACHIAL PRESSURE INDICES Pressure indices are as follows: RIGHT LOWER EXTREMITY: Ankle-brachial pressure index: 1.1 Comments: Normal LEFT LOWER EXTREMITY: Ankle-brachial pressure index: 1.0 Comments: Normal IMPRESSION: No evidence of significant obstructive peripheral vascular disease of the lower extremities Reviewed, Interpreted and Dictated by Leonardo Corrales III, MD Transcribed by Karolyn Lopez Authenticated and [facility]
== END ==
PROVIDERS: PCP Family Medicine; Visit Provider Podiatrist
DX: I73.00 Raynaud's syndrome without gangrene (principal)
CPT/HCPCS: 93923

== ENCOUNTER 2023-07-22 10:56 | Outpatient (CLI) | payer MEDICARE, SELFPAY ==
--- NOTE | 2023-07-22 11:04 | XR_ITS ---
PROCEDURE INFORMATION: Exam: XR Lumbosacral Spine Exam date and time: 07/22/2023 11:07 AM Age: 68 years old Clinical indication: Prior surgery; Surgery date: 6+ months; Surgery type: Bilateral low back pain intor bilateral extremity, left worse than right TECHNIQUE: Imaging protocol: Radiologic exam of the lumbosacral spine. Views: 4 or 5 views. COMPARISON: CR SPLUMBLM XR lumbar spine 2-3V 09/06/2017 1:56 PM FINDINGS: Bones/joints: Moderate degenerative disc disease diffusely reflected as decrease in disc space height and anterior endplate osteophytosis. No spondylolisthesis. No pars defect. No fracture. Compression fracture anterior middle columns L1-vertebroplasty. Soft tissues: Unremarkable. Vasculature: Calcification of the abdominal aorta. IMPRESSION: 1. Compression fracture anterior middle columns L1-vertebroplasty. 2. Moderate diffuse degenerative disc disease.
== END 2023-07-22 23:59 ==
LOC: RAD 10:58
PROVIDERS: PCP Family Medicine; Visit Provider Family Medicine
DX: M54.42 Lumbago with sciatica, left side (principal)
CPT/HCPCS: 72110

== ENCOUNTER 2023-08-31 11:00 | Outpatient (RCR) | payer MEDICARE, SELFPAY ==
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
== END 2023-08-31 11:57 | disposition home or self-care (01) ==
LOC: PT 11:00
PROVIDERS: Visit Provider Family Medicine
DX: M54.42 Lumbago with sciatica, left side (principal)
CPT/HCPCS: 97010; 97014; 97110; 97163; 97530; G0283

== ENCOUNTER 2023-09-22 07:19 | Outpatient (CLI) | payer MEDICARE, SELFPAY ==
--- NOTE | 2023-09-22 07:33 | CT_ITS ---
FINAL REPORT TECHNIQUE: Thin section axial images were obtained from the lung apices to the upper abdomen by computed tomography. Reformatted images were obtained and reviewed. This study was performed with techniques to keep radiation doses al low as reasonably achievable (ALARA). Individualized dose reduction techniques using automated exposure control or adjustment of mA and/or kV according to the patient's size were employed. CLINICAL HISTORY: H/O TOBACCO USE CURRENT SMOKER [id number] YEARS COMPARISON: 09/14/2022 FINDINGS: CHEST CT LOW DOSE 68-year-old female, current smoker, 02-vrmx-hday history. CTDI vol (mGy): 2.9 DLP (mGy-cm): 101.86 There is no axillary adenopathy. There is no mediastinal or hilar mass or adenopathy. The heart is normal in size. Moderate to severe coronary artery calcifications are present. There is no pericardial or pleural effusion. There is mild emphysema and mild pulmonary scarring. Lung window images demonstrate the 10 mm groundglass lateral right upper lobe nodule seen on the prior CT of 2022 is stable and best seen on image #28. There is a 2 mm lateral left lower lobe nodule seen on image #47, also stable. No new nodules or masses are visualized. Limited images of the upper abdomen reveal that a prior cholecystectomy has been performed.. IMPRESSION: Lung-RADS category 2S, with the S designation for the moderate to severe coronary artery calcifications. Recommend 12 month follow up low dose chest CT. Reviewed, Interpreted and Dictated by Leonardo Corrales III, MD Transcribed by Colleen Duran Authenticated and [facility]
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
== END 2023-09-22 23:59 | disposition home or self-care (01) ==
LOC: RAD 07:20
PROVIDERS: PCP Family Medicine; Visit Provider Family Medicine
DX: M54.42 Lumbago with sciatica, left side (principal); M51.36 Other intervertebral disc degeneration, lumbar region; S32.000A Wedge compression fracture of unspecified lumbar vertebra, initial encounter for closed fracture; Z87.891 Personal history of nicotine dependence; Z12.2 Encounter for screening for malignant neoplasm of respiratory organs
CPT/HCPCS: 71271; 72148; 76376

== ENCOUNTER 2023-10-09 14:27 | Outpatient (CLI) | payer SELFPAY ==
--- NOTE | 2023-10-09 14:31 | CT_ITS ---
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 A noncontrast coronary calcium scan was performed. A CT attenuation threshold of 130 Hounsfield units (HU) was used for the detection of calcium in contiguous voxels of 1 sq mm in area to be counted as individual lesions. A tube voltage of 120 KVp was used. The patient received no medications prior to the coronary calcium CT. Image Reconstruction Transaxial images were reconstructed at 0.67 mm slide thickness. Data was reviewed interactively on an advanced workstation capable of 2 and 3-dimensional displays in all conventional reconstruction formats, including multiplanar reformations, maximum intensity projections, curved multiplanar reformations, and volume rendered reconstructions. When applicable, selected routine images describing the relevant coronary anatomy and pathology were saved and sent to PACS. Complications None Technical Quality Overall image quality was good. Total DLP (Dose-Length Product) is 179.9 mGy-cm. The reported value represents the total of one or more individual components during the CT acquisition of this date and at this time, and as such, the same value may appear in more than one CT report depending on the interpreting/reporting physicians. COMPARISON None FINDINGS CT Coronary Calcium Scoring LMA (Left Main Artery) = 100 LAD (Left Anterior Descending) = 147 LCX (Left Coronary Circumflex) = 179 RCA (Right Coronary Artery) = 175 Total Calcium Score = 601 using the AJ-130 method. There is also calcification in the aortic valve and the ascending and descending thoracic aorta. IMPRESSION -Coronary artery calcification is present. -Total Calcium Score (Agatston Score) = 601 using the AJ-130 method. -The observed calcium score of 601 is at 94th percentile for subjects of the same age, sex, and race/ethnicity. The interpretation of the calcium heart score is based on the following continuum*: 0 = no calcified plaque detected (risk of coronary artery disease is very low ??? less than 5%) 1-10 = calcium detected in extremely minimal levels (risk of coronary diseases is still low ??? less than 10%) 11-100 = mild levels of plaque detected with certainty (mild or minimal narrowing of heart arteries is likely) 101-400 = definite,at least moderate levels of plaque detected (relatively high risk of a heart attack within 3-5 years) >401-999 = extensive levels of plaque detected (high risk of heart attack, high levels of vascular disease are present, high likelihood of at least one significant coronary narrowing) *The calcium heart score quantifies the burden of coronary calcification/plaque in the coronary arteries. The calcium heart score does not evaluate the presence or the burden of non-calcified (i.e. soft) plaque. The coronary and cardiac findings of this Coronary Calcium CT were reviewed, reported, and signed by Dane Salgado MD (Receivables Specialist). Conclusion Electronically signed by : Arlene Salgado MD 10/10/2023 10:32:28
== END 2023-10-09 23:59 | disposition home or self-care (01) ==
LOC: RAD 14:27
PROVIDERS: PCP Family Medicine; Visit Provider Family Medicine
DX: Z13.6 Encounter for screening for cardiovascular disorders (principal)
CPT/HCPCS: 75571

== ENCOUNTER 2023-10-12 09:34 | Outpatient (POV) | payer MEDICARE, SELFPAY ==
[2023-10-12 09:44] VITALS: BP 170/83; PULSE 86; RESP 18; O2SAT 98; BMI 30.9
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
== END 2023-10-12 23:59 | disposition home or self-care (01) ==
LOC: SC.PAIN 09:36
PROVIDERS: PCP Family Medicine; Visit Provider Nurse Practitioner Family
DX: M79.605 Pain in left leg; M48.062 Spinal stenosis, lumbar region with neurogenic claudication; M51.16 Intervertebral disc disorders with radiculopathy, lumbar region
CPT/HCPCS: 99202; G0463

== ENCOUNTER 2023-10-31 09:01 | Day surgery (SDC) | payer MEDICARE, SELFPAY ==
[2023-10-31 09:26] VITALS: BP 167/95; PULSE 90; RESP 18; TEMP 36.4; O2SAT 97; BMI 30.9
[2023-10-31] MEDS: LIDOCAINE 1% 5ML PF VIAL 5 ML (09:29)
[2023-10-31 09:30] VITALS: BP 171/76; PULSE 86; RESP 16; O2SAT 94
[2023-10-31 09:31] VITALS: BP 171/76; PULSE 88; RESP 18; O2SAT 96
--- NOTE | 2023-10-31 09:33 | EXP.PAIN.PRO ---
Procedure Date: 10/31/23 Time: 09:15 Anesthesiologist:: Ochoa Grier CRNA Complications:: None Pre-procedure Diagnosis:: Degenerative disc lumbar spine multilevels. Lumbar radiculopathy. Lumbar disc bulge L4-5, L5-S1. Post-procedure Diagnosis:: Same. Indications for Procedure:: Patient is a very pleasant 68-year-old female comes our clinic today for a left L4-5, L5-S1 transforaminal epidural steroid injection. Patient reports low lumbar back pain. Also, left hip and leg radicular symptoms to the foot. She rates her pain 9/10. Patient states with any activity pain increases significantly. Procedure Details:: Details of the procedure were explained to the patient. The patient was taken the procedure room placed in the prone position. The area of the lumbar spine was cleansed using chlorhexidine as a cleansing solution. At this time using fluoroscopy guidance markers were placed on the left lateral border of the L4 and L5 vertebral body. The skin and subcutaneous tissue was anesthetized using 1% lidocaine and 25-gauge needle. At this time using a 22-gauge 3-1/2 inch spinal needle the left upper one third of the L4-5 foramen was accessed. The same was done at the left L5-S1 foramen. Needle positions were confirmed and a lateral view using fluoroscopy and contrast dye. At this time 1 cc of 1% lidocaine +20 mg of Depo-Medrol was injected at each level after negative aspiration. [place] were removed. Band-Aid applied. Patient tolerated the procedure without difficulty. There are no complications. Plan and Disposition:: Patient was discharged without incident.
[2023-10-31 09:35] VITALS: BP 184/85; PULSE 80; RESP 18; O2SAT 97
[2023-10-31] MEDS: IOPAMIDOL-200 (41%);10ML VIAL 10 ML IV (09:40)
== END 2023-10-31 09:35 | disposition home or self-care (01) ==
PROVIDERS: PCP Family Medicine; Visit Provider Nurse Anesthetist, Certified Registered
DX: M51.16 Intervertebral disc disorders with radiculopathy, lumbar region (principal); M51.26 Other intervertebral disc displacement, lumbar region
CPT/HCPCS: 64483; 64484; J1010; Q9966

== ENCOUNTER 2023-11-15 10:02 | Outpatient (POV) | payer MEDICARE, SELFPAY ==
--- NOTE | 2023-11-15 10:16 | EXP.PAIN.SOA ---
[facility] Pain Management SOAP Note Subjective:: Patient is a pleasant 68-year-old female who presents today for follow-up of left transforaminal epidural steroid injection L4-L5 and L5-S1 on 10/31/2023. Today she rates her pain a 4 out of 10 and states the pain will increase with increased activity. Patient states that she really did not feel like this injection helped that great. She states that even about 2 weeks ago she was doing some yard sailing with her sister and both of her legs were causing severe pain and felt very weak and like they were going to give out. Patient states she did have to be very cautious so that she did not fall. She states she continues to have the low back pain that does now radiate into both legs with numbness and tingling. She states the pain does interfere with her ability to perform activities of daily living such as cooking and cleaning. Patient is very interested in trying additional injection therapy. She does state that she is scheduled to do some cardiac test coming up and then she has a follow-up with the community engagement specialist on the of this month. She is prescribed gabapentin from her PCP. Her Ulisses has been reviewed and is appropriate. Review of Systems: General: No recent weight changes, no fever, no sleep disturbances Respiratory: No cough, no shortness of air, no recurring pulmonary infections Cardiovascular/peripheral vascular: No chest pain, no palpitations, no edema, no shortness of breath Gastrointestinal: No new onset incontinence, normal bowel movements reported Genitourinary: No new onset incontinence Musculoskeletal: Low back pain, bilateral leg pain Psychiatric: [Normal mood/affect] Neurological: [Denies weakness in extremities], [denies balance issues] Objective:: Physical Exam: General: Alert and oriented x3, no acute distress, pleasant and cooperative Lungs: Respirations even and unlabored, symmetrical chest expansion Eyes: PERRL Musculoskeletal: Flexion and extension of lumbar [spine] somewhat guarded secondary to pain, [antalgic gait noted] Neurological: Speech clear, no gross sensory deficit Assessment:: Degenerative disc disease of lumbar spine with lumbar radiculopathy symptoms, lumbar spinal stenosis with neurogenic claudication symptoms Plan:: Patient is experiencing significant pain in her low back and bilateral legs with limited range of motion. Patient does have numbness and tingling into her extremities and increased weakness. I have discussed with the patient that she may benefit from a lumbar epidural steroid injection. Risk and benefits were discussed with patient and she would like to proceed forward with this plan of care. Patient is not currently on any blood thinners. I have counseled the patient when she goes for her cardiology follow-up that if the community engagement specialist has any reservations to her having a lumbar epidural to please contact our office and that we can postpone or reschedule this injection for future if we need to. Patient has tried and failed conservative therapies for longer than 12 weeks with minimal relief. I will also order the patient a compounded cream. Patient will return to clinic for her lumbar epidural steroid injection L4-L5 under fluoroscopy. Patient has been instructed to contact the clinic with any concerns before the next appointment. Dr. Trevino has reviewed this note and agrees with this plan of care. This note was dictated using voice recognition software and make contain errors or omissions. [facility] Disclaimer: The information contained in this section may have been updated after the patient was seen, as this information can be updated by other users. Medical History (Updated 11/02/23 @ 14:43 by Courtney Sal RN) Agatston coronary artery calcium score greater than 400 Abnormal electrocardiogram [ECG] [EKG] Compression fracture GERD (gastroesophageal reflux disease) Lupus Rheumatoid arthritis Osteoarthritis Surgical History Hx of cholecystectomy History of tubal ligation Family History Other Unknown family medical history Social History Smoking Status: Current every day smoker tobacco type: cigarettes packs per day: 1 alcohol intake: never substance use type: denies use current occupational status: retired Travel in the last 8 weeks: None household members: spouse housing: house current occupational exposures/hazards: No caffeine: Yes
[2023-11-15 10:22] VITALS: BP 140/78; PULSE 82; RESP 16; O2SAT 96; BMI 31.1
== END 2023-11-15 23:59 | disposition home or self-care (01) ==
LOC: SC.PAIN 10:02
PROVIDERS: PCP Family Medicine; Visit Provider Nurse Practitioner Family
DX: M51.16 Intervertebral disc disorders with radiculopathy, lumbar region (principal); M48.062 Spinal stenosis, lumbar region with neurogenic claudication
CPT/HCPCS: 99212; G0463

== ENCOUNTER 2023-11-17 06:05 | Outpatient (CLI) | payer MEDICARE, SELFPAY ==
--- NOTE | 2023-11-17 | CA_ITS ---
APPROVED REPORT Exam: Pharmacologic Technologist: Cait Crabtree, Ht: 5 ft 2 in Wt: 172 lbs BSA: 1.79 m2 HR: 71 bpm BP: 138/74 mmHg Rhythm: NSR, ST ABNS INFERIORLY AND LATERALLY, CANNOT R/O OLD SEPTAL DC Indications: Dyspnea, Abn EKG Medical History Medical History: Smoking Medications: Irbesartan,,,,, Aspirin,,,,, MeLOXICAM,,,,, Vit e,,,,, Vit B12,,,,, BuPROPION,,,,, Hydroxychloroquine,,,,, RoSUVASTATIN,,,,, TUmeric,,,,, MVI,,,,, Probotic,,,,, Allergies: CODEINE Cardiac Risk Factors: FHX of CAD, Smoking Stress Test Details Test: LEXISCAN HR Resting HR: 74 bpm Max Heart Rate (APMHR): 151 bpm Max HR Achieved: 96 bpm Target HR (85% APMHR): 128 bpm % of APMHR: 64 Recovery HR: 81 bpm BP Resting BP: 138/74 mmHg Max BP: 138/74 mmHg Recovery BP: 134.0/71.0 mmHg ECG Resting ECG: NSR, ST ABNS INFERIORLY AND LATERALLY, CANNOT R/O OLD SEPTAL DC Stress ECG: NO SIGNIFICANT ST CHANGES Arrhythmia: NONE Clinical Exercise duration: 04:00 min Highest Stage Achieved: Exercise capacity: 1.0 METs Stress ECG Conclusion PT HAD SOA AND DIZZINESS NO CP NO SIGNIFICANT ST CHANGES UNREMARKABLE LEXISCAN STRESS MYOVIEW IMAGES REPORTED SEPARATELY Test Summary REST 01:23 . . 74 . 138/ 74 . . Stage 1 01:00 . . 93 . . . . Stage 2 01:00 . . 91 . 138/ 67 . . Stage 3 01:00 . . 85 . 133/ 68 . . Stage 4 01:00 . . 84 . 125/ 66 . Stop exercise at 04:00 RECOVERY 01:00 . . 85 . . . . RECOVERY 02:00 . . 80 . 129/ 74 . . RECOVERY 03:00 . . 83 . 134/ 71 . . RECOVERY 03:25 . . 90 . 134/ 71 . . Electronically signed by : Arlene Salgado MD 11/20/2023 13:06:04
--- NOTE | 2023-11-17 06:08 | CA_ITS ---
APPROVED REPORT EXAM: Comprehensive 2D, Doppler, and color-flow Echocardiogram Director Of Outside Sales: Emely Arriaga RDCS Ht: 5 ft 2 in Wt: 172lbs BSA: 1.79 BP: 174/82 mmHg Indications: SOA,ABN EKG,CAD M-Mode Dimensions RVDd 1.25 cm (0.9-2.6) LA Diam 3.73 cm (1.9-4.0) LVDd 5.67 cm (3.5-5.7) LVDs 3.82 cm (3.5-5.7) IVSd 0.68 cm (0.6-1.1) PWd 0.86 cm (0.6-1.1) EF (Teich) 60.30% FS 32.60% EDV (Teich) 158.10 mL ESV (Teich) 62.70 mL LV Diastology E Decel Time 160 (160-240 msec) E/A Ratio 1.2 Mitral Valve MV E Max Trent. 69.0 (40-130 cm/s) MV A Velocity 57.0 (40-130 cm/s) E/A Ratio 1.21 MV PHT 47.0 ms Left Ventricle The left ventricle is normal size. The left ventricular systolic function is normal. The left ventricular ejection fraction is within the normal range. There is normal left ventricular wall thickness. There is normal LV segmental wall motion. The left ventricular diastolic function is normal. LVEF is 55%. Right Ventricle The right ventricle is mildly dilated. The right ventricular systolic function is normal. Atria The left atrium is mildly dilated. The right atrium size is normal. There is no Doppler evidence of interatrial shunt. Aortic Valve The aortic valve is mildly thickened. There is no aortic valvular stenosis. No aortic regurgitation is present. Mitral Valve The mitral valve leaflets are mildly thickened. Mild mitral regurgitation. No evidence of mitral valve stenosis. Tricuspid Valve The tricuspid valve leaflets are thin and pliable. Mild tricuspid regurgitation. RVSP is normal. Pulmonic Valve The pulmonary valve is normal in structure. Trace pulmonic regurgitation. Great Vessels The aortic root is normal in size. The ascending aorta is not well-visualized. IVC is normal in size and collapses >50% with inspiration. Pericardium There is no pericardial effusion. Other Information Study Quality: Fair Conclusion Normal biventricular systolic function. Mild RV dilation. Mild LA dilation. Mild MR, mild TR. Electronically signed by : Arlene Salgado MD 11/20/2023 11:50:24
--- NOTE | 2023-11-17 06:16 | NM_ITS ---
APPROVED REPORT Exam: Nuclear Stress Test Indication: HTN, HYPER;IPIDEMIA, TOB USE, FM HX, SOB, PALPITATIONS, FATIGUE [facility] [place] Tech:Courtney FinneganAPRIL mary RT (R)(N)(M) Ht: 5 ft 2 in Wt: 170 lbs HR: 71 bpm BP: 138/74 mmHg BSA: 1.78 m2 TID: 1.21 BMI: 31.0 History: HTN, HYPER;IPIDEMIA, TOB USE, FM HX, SOB, PALPITATIONS, FATIGUE Procedure: Patient received 0.4 mg of intravenous Lexiscan, resting heart rate 71 bpm, resting blood pressure 138/74 mmHg, with Lexiscan maximum heart rate achieved was 93 bpm which is % of the maximum predicted heart rate and blood pressure was 138/67 mmHg. With Lexiscan, patient denied any complaint of chest pain. Cardiac Stress and Resting SPECT Images: Cardiac Stress and Resting SPECT images were obtained using technetium 99m Myoview 30.4 mCi stress and 10.98 mCi at rest. Resting and stress imaging in supine and prone positions demonstrate a medium sized, moderate, reversible perfusion defect in the basal to mid inferior LV wall. There is also increase in transient ischemic dilatation ratio (TID 1.21), suggestive of possible multivessel disease or balanced ischemia. Gated imaging demonstrates normal global LV systolic function. There is mild hypokinesis of the basal inferior LV wall. LVEF is calculated at 52%. Conclusion: Medium sized, moderate, reversible perfusion defect in the basal to mid inferior LV wall. Findings are suggestive of reversible ischemia. There is also increase in transient ischemic dilatation ratio (TID 1.21), suggestive of possible multivessel disease or balanced ischemia. Gated imaging demonstrates normal global LV systolic function. There is mild hypokinesis of the basal inferior LV wall. LVEF is calculated at 52%. Electronically signed by : Arlene Salgado MD 11/20/2023 13:07:40
[2023-11-17] MEDS: SODIUM CHLORIDE 0.9% 10ML SYR (RAD ONLY) 10 ML IV ×2 (06:30→08:10)
[2023-11-17] MEDS: REGADENOSON 0.4MG/5ML SYRINGE 0.400000000000000022 MG IV (08:10)
[2023-11-17] MEDS: ISOTOPE MYOVIEW (PER STUDY) 1 DOSE IV (09:12)
== END 2023-11-17 23:59 | disposition home or self-care (01) ==
LOC: RAD 06:08
PROVIDERS: PCP Family Medicine; Visit Provider Nurse Practitioner
DX: R93.1 Abnormal findings on diagnostic imaging of heart and coronary circulation (principal); R94.31 Abnormal electrocardiogram [ECG] [EKG]; R07.89 Other chest pain; Z72.0 Tobacco use; R06.00 Dyspnea, unspecified
CPT/HCPCS: 78452; 93017; 93018; 93306; A9502; J2785

== ENCOUNTER 2023-12-05 08:59 | Day surgery (SDC) | payer MEDICARE, SELFPAY ==
[2023-12-05 09:17] VITALS: BP 157/75; PULSE 86; RESP 18; TEMP 36.7; O2SAT 95; BMI 31.1
[2023-12-05 09:27] VITALS: BP 137/69; PULSE 84; RESP 18
[2023-12-05] MEDS: methylPREDNISolone ACETATE 80MG/ML VIAL 80 MG (09:27)
[2023-12-05 09:28] VITALS: BP 137/69; PULSE 82; RESP 18; O2SAT 93
--- NOTE | 2023-12-05 09:33 | EXP.PAIN.PRO ---
Procedure Date: 12/05/23 Time: 09:10 Anesthesiologist:: Ochoa Grier CRNA Complications:: None Pre-procedure Diagnosis:: Degenerative disc lumbar spine multilevels. Lumbar radiculopathy. Lumbar spondylosis. Multilevel lumbar facet arthropathy. Post-procedure Diagnosis:: Same. Indications for Procedure:: Patient is a very pleasant 68-year-old female comes our clinic today for a lumbar epidural steroid injection at the L4-5 level. Patient describes low back pain as constant, dull, aching. She rates her pain 7/10. Patient reports pain intensifies with activity. She is very busy in the garden and other outdoor activities. Patient also reports bilateral hip and leg radicular symptoms. Procedure Details:: Procedure: Lumbar epidural steroid injection under fluoroscopy Informed consent was obtained and the risks and benefits of the procedure were explained to the patient. The patient was taken to the procedure room and noninvasive monitors placed, including noninvasive blood pressure cuff and pulse oximeter. The back was viewed using C-arm Fluoroscopy and prepped using Chloraprep as a cleansing solution and the L4-L5 interspace was palpated. Skin and subcutaneous tissues were anesthetized using lidocaine 1.5% and a 25-gauge needle. After this, an 18-gauge Touhy epidural needle was placed into the L4-L5 interspace and advanced using fluoroscopic guidance and loss of resistance to air until the epidural space was encountered. After confirmation of needle placement in the epidural space, with dye, a solution containing normal saline, 3 mL and Depo-Medrol 80 mg were incrementally injected into the lumbar epidural space. The patient tolerated the procedure well with no complications. The patient was observed in the Pain Clinic and then discharged home neurologically intact. Plan and Disposition:: Patient was discharged without incident.
[2023-12-05 09:38] VITALS: BP 147/84; PULSE 84; RESP 18; O2SAT 95
== END 2023-12-05 09:40 | disposition home or self-care (01) ==
PROVIDERS: PCP Family Medicine; Visit Provider Nurse Anesthetist, Certified Registered
DX: M47.26 Other spondylosis with radiculopathy, lumbar region (principal); M51.36 Other intervertebral disc degeneration, lumbar region
CPT/HCPCS: 62323; J1010

== ENCOUNTER 2023-12-08 08:20 | Day surgery (SDC) | payer MEDICARE, SELFPAY ==
[2023-12-08] VITALS (12 sets, daily range): BP systolic 105–162; BP diastolic 49–86; PULSE 61–82; RESP 14–20; TEMP 36.3; O2SAT 91–96; BMI 31.2
--- NOTE | 2023-12-08 07:44 | IR_ITS ---
APPROVED REPORT Patient Location: Outpatient PROCEDURES Left heart catheterization Left ventriculogram Selective coronary angiogram INDICATION Abnormal Myoview, Angina pectoris Informed consent was obtained prior to the procedure. COMPLICATIONS NONE Estimated Blood Loss: LESS THAN 10 ML TECHNIQUE One percent lidocaine used to anesthetize the right anterior aspect of the wrist. The right radial artery was accessed via the Seldinger technique. A 6 Kazakh sheath was placed in the right radial artery. 2.5 mg of Verapamil, 800 mcg of nitroglycerin, 1mg Lidocaine and 5000 U Heparin were given through the arterial sheath. The papa catheter was also used to perform left heart catheterization, left ventriculogram and selective coronary angiogram. At the end of the procedure the sheath was removed good hemostasis was achieved using Traclet band, patient was transferred to the postop holding area in stable condition. ANGIOGRAPHIC RESULTS The left main artery Normal The left anterior descending artery Has diffuse 20 to 30% luminal regularities The circumflex artery Dominant with a mid vessel 30 to 40% stenosis with diffuse 10% luminal irregularities The right coronary artery Nondominant 10% luminal irregularities The FERRARO ventriculogram reveals Normal 65% The left ventricular end-diastolic pressure 15 mmHg IMPRESSION Mild to moderate coronary disease as described above Normal ejection fraction Normal left ventricular end-diastolic pressure PLAN 1. Medical management with risk factor modification Electronically signed by : Garth Stoll MD 12/08/2023 13:36:18
[2023-12-08 08:55] LABS: Chloride 101 mmol/L (98-107); Potassium 3.9 mmoL/L (3.5-5.1); Sodium 138 mmol/L (136-145)
[2023-12-08 08:57] LABS: Basophils # 0.1 K/mm3 (0-0.2); Basophils % 0.8 % (0.1-2.0); Eosinophils # 0.3 K/mm3 (0.0-0.4); Eosinophils % 2.7 % (0.1-12.0); Hemoglobin 14.5 g/dL (12.2-16.2); Lymphocytes # 2.5 K/mm3 (0.7-4.5); Lymphocytes % 26.4 % (10-50); Mean Corpuscular HGB Conc 34.5 g/dL (31.8-35.4); Mean Corpuscular Hemoglobin 33.2 pg (27.0-31.2); Mean Corpuscular Volume 96.2 fl (81-99); Mean Platelet Volume 6.6 fl (7.4-10.4); Monocytes # 0.4 K/mm3 (0.1-1.0); Monocytes % 4.3 % (1.7-9.3); Neutrophils # 6.3 K/mm3 (1.8-7.8); Neutrophils % 65.9 % (37.0-80.0); Platelet Count 363 K/mm3 (142-424); Red Blood Count 4.36 M/mm3 (4.20-5.40); Red Cell Distribution Width 13.9 % (11.5-17.5); White Blood Count 9.6 K/mm3 (4.8-10.8)
[2023-12-08 08:58] LABS: Blood Urea Nitrogen 12 mg/dl (7-17); Calcium 10.2 mg/dl (8.4-10.2); Creatinine Clearance Estimated 65 mL/min (50-200); Estimated Glomerular Filt Rate 71 ml/min (>60); GFR (African American) 86 ML/MIN (>60); Glucose 105 mg/dl (74-100)
[2023-12-08 09:47] LABS: Anion Gap 12.9 mEq/L (5-15); Carbon Dioxide 28 mmol/L (22.0-30.0)
[2023-12-08] MEDS: HEPARIN 1,000 UNITS/500ML NS (CATH LAB) 3000 UNIT IV (11:24)
[2023-12-08] MEDS: LIDOCAINE 1% 10ML MDV 20 ML IJ (11:24)
[2023-12-08] MEDS: HEPARIN 1,000 UNITS/ML 10ML VIAL (CATH LAB) 10000 UNIT IV (11:24)
[2023-12-08] MEDS: 0.9 % SODIUM CHLORIDE 500 ML 25 ML IV (11:24)
[2023-12-08] MEDS: diphenhydrAMINE 50MG/ML VIAL 50 MG IV (11:25)
[2023-12-08] MEDS: NITROGLYCERIN 800MCG/8ML SYR (CATH LAB) 800 MCG IA (11:25)
[2023-12-08] MEDS: VERAPAMIL 2.5MG/ML 2ML VIAL 2.5 MG IV (11:25)
[2023-12-08] MEDS: MIDAZOLAM HCL 1MG/1ML 5ML VIAL 1 MG IV (11:34)
[2023-12-08] MEDS: FENTANYL 100MCG/2ML VIAL 50 MCG IV (11:34)
--- NOTE | 2023-12-08 12:42 | SUR.PHASEII ---
provided pt with lunch tray
[2023-12-08] MEDS: IOPAMIDOL-370 (76%);100ML BOTTLE 40 ML IV (14:17)
== END 2023-12-08 14:25 | disposition home or self-care (01) ==
LOC: CATHLAB 08:22
PROVIDERS: PCP Family Medicine; Visit Provider Internal Medicine
DX: R93.1 Abnormal findings on diagnostic imaging of heart and coronary circulation (principal); R07.89 Other chest pain; R06.09 Other forms of dyspnea; F17.210 Nicotine dependence, cigarettes, uncomplicated; Z79.899 Other long term (current) drug therapy; I25.118 Atherosclerotic heart disease of native coronary artery with other forms of angina pectoris
CPT/HCPCS: 80048; 85025; 93458; 99152; C1725; C1769; J1644; J2250; J3010; Q9967

== ENCOUNTER 2023-12-21 08:24 | Outpatient (CLI) | payer MEDICARE, SELFPAY ==
--- NOTE | 2023-12-21 08:25 | CA_ITS ---
FINAL REPORT CLINICAL HISTORY: I77.0 - Arteriovenous fistula, acquired FINDINGS: Spectral and Doppler waveform evaluations of the right wrist was performed. Spectral analysis was performed. There is no evidence of aneurysm of the radial artery. IMPRESSION: No evidence of aneurysm. Reviewed, Interpreted and Dictated by Leonardo Corrales III, MD Transcribed by Deena Gipson Authenticated and [facility]
== END 2023-12-21 23:59 | disposition home or self-care (01) ==
LOC: RT 08:25
PROVIDERS: PCP Family Medicine; Visit Provider Nurse Practitioner
DX: I77.0 Arteriovenous fistula, acquired (principal)
CPT/HCPCS: 93931

== ENCOUNTER 2023-12-28 10:45 | Outpatient (POV) | payer MEDICARE, SELFPAY ==
[2023-12-28 10:52] VITALS: BP 139/70; PULSE 82; RESP 16; O2SAT 95; BMI 31.1
--- NOTE | 2023-12-28 11:43 | A.OFFVIS_ITS ---
[facility] Disclaimer: The information contained in this section may have been updated after the patient was seen, as this information can be updated by other users. Medical History (Updated 12/19/23 @ 14:34 by Ernesto Srinivasan RN) AV fistula Abnormal findings on diagnostic imaging of heart and coronary circulation Agatston coronary artery calcium score greater than 400 Abnormal electrocardiogram [ECG] [EKG] Compression fracture GERD (gastroesophageal reflux disease) Lupus Rheumatoid arthritis Osteoarthritis Surgical History Hx of cholecystectomy History of tubal ligation Family History Other Unknown family medical history Social History Smoking Status: Current every day smoker tobacco type: cigarettes packs per day: 1 alcohol intake: never substance use type: denies use current occupational status: other Travel in the last 8 weeks: None household members: spouse housing: house current occupational exposures/hazards: No caffeine: Yes PM Subjective & Objective Subjective Subjective:: Patient is a pleasant 68-year-old female who presents today for follow-up of her lumbar epidural steroid injection L4-L5 on 12/05/2023. Today she rates her pain a 3 out of 10. Patient states that she has had significant relief following this injection. She rates her pain improvement of 75% and feels like it still helping. Patient states she has been able to increase her activity with overall decreased pain and feels much more functional. Patient does also state that the compounded cream is also helping her overall hip and neck pain. Patient does feel like that these areas are still manageable. Patient is prescribed gabapentin by provider. Her Ulisses has been reviewed and is appropriate. Review of Systems: General: No recent weight changes, no fever, no sleep disturbances Respiratory: No cough, no shortness of air, no recurring pulmonary infections Cardiovascular/peripheral vascular: No chest pain, no palpitations, no edema, no shortness of breath Gastrointestinal: No new onset incontinence, normal bowel movements reported Genitourinary: No new onset incontinence Musculoskeletal: Low back Psychiatric: [Normal mood/affect] Neurological: [Denies weakness in extremities], [denies balance issues] Pain at rest (0-10 scale): 3 Objective Objective:: Physical Exam: General: Alert and oriented x3, no acute distress, pleasant and cooperative Lungs: Respirations even and unlabored, symmetrical chest expansion Eyes: PERRL Musculoskeletal: Flexion and extension of lumbar [spine] somewhat guarded secondary to pain, [antalgic gait noted] Neurological: Speech clear, no gross sensory deficit Has patient had previous pain injection?: Yes Percent improvement in pain since last injection: 75% Conservative treatment options previously tried: Home exercise plan Length of treatment: Longer than 6 weeks Meds Home Medications and Allergies Home Medications Medication Instructions Recorded Confirmed Type Saccharomyces boulardii 250 mg 250 mg PO BID 03/29/23 12/28/23 History capsule (Daily Probiotic (S. boulardii)) aspirin 81 mg tablet,delayed 81 mg PO DAILY 03/29/23 12/28/23 History release (Adult Low Dose Aspirin) cyanocobalamin (vitamin B-12) 5,000 mcg PO DAILY 03/29/23 12/28/23 History 5,000 mcg capsule hydroxychloroquine 200 mg tablet 200 mg PO DIRECTED . 03/29/23 12/28/23 History multivitamin with minerals 1 tab PO DAILY 03/29/23 12/28/23 History (Hair,Skin and Nails tablet) turmeric root extract 538 mg 538 mg PO DAILY 03/29/23 12/28/23 History capsule vitamin E (dl, acetate) 180 mg 180 mg PO DAILY 03/29/23 12/28/23 History (400 unit) capsule bupropion HCl 75 mg tablet 75 mg PO BID 11/02/23 12/28/23 History irbesartan 300 mg tablet 300 mg PO DAILY 11/02/23 12/28/23 History rosuvastatin 40 mg tablet 40 mg PO HS 11/02/23 12/28/23 History gabapentin 300 mg capsule 300 mg PO BID PRN . 12/04/23 12/28/23 History meloxicam 15 mg tablet 15 mg PO DAILY PRN . 12/04/23 12/28/23 History New Prescriptions to Start Prescriptions: Allergies Allergy/AdvReac Type Severity Reaction Status Date / Time codeine Allergy Intermediate NA-NAUSEA/V Verified 12/19/23 14:12 OMITING Assessment and Plan *Assessment and plan (1) Lumbar radiculopathy: Status: Acute Category: Medical Code(s): M54.16 - Radiculopathy, lumbar region (2) Degenerative disc disease, lumbar: Status: Acute Category: Medical Code(s): M51.36 - Other intervertebral disc degeneration, lumbar region Plan Patient has had significant improvement following her epidural injection and does not require any additional injection therapy at this time. Patient will return to clinic in 1 month for reevaluation of symptoms and plan of care. Patient has been instructed to contact the clinic with any concerns before the next appointment. Dr. Trevino has reviewed this note and agrees with this plan of care. This note was dictated using voice recognition software and make contain errors or omissions.
== END 2023-12-28 23:59 | disposition home or self-care (01) ==
LOC: SC.PAIN 10:46
PROVIDERS: PCP Family Medicine; Visit Provider Nurse Practitioner Family
DX: M54.16 Radiculopathy, lumbar region (principal); M51.36 Other intervertebral disc degeneration, lumbar region
CPT/HCPCS: 99212; G0463

== ENCOUNTER 2024-03-27 09:10 | Outpatient (CLI) | payer MEDICARE, SELFPAY ==
[2024-03-27 09:39] LABS: Basophils # 0.1 K/mm3 (0-0.2); Basophils % 0.8 % (0.1-2.0); Eosinophils # 0.3 K/mm3 (0.0-0.4); Eosinophils % 3.6 % (0.1-12.0); Hematocrit 40.1 % (37.0-47.0); Hemoglobin 14.2 g/dL (12.2-16.2); Lymphocytes % 23.4 % (10-50); Mean Corpuscular HGB Conc 35.4 g/dL (31.8-35.4); Mean Corpuscular Hemoglobin 32.9 pg (27.0-31.2); Mean Corpuscular Volume 93.1 fl (81-99); Mean Platelet Volume 6.8 fl (7.4-10.4); Monocytes # 0.5 K/mm3 (0.1-1.0); Monocytes % 5.5 % (1.7-9.3); Neutrophils # 5.8 K/mm3 (1.8-7.8); Neutrophils % 66.7 % (37.0-80.0); Platelet Count 289 K/mm3 (142-424); Red Blood Count 4.31 M/mm3 (4.20-5.40); Red Cell Distribution Width 13.4 % (11.5-17.5); White Blood Count 8.6 K/mm3 (4.8-10.8)
[2024-03-27 10:15] LABS: Albumin Level 4.3 g/dl (3.5-5.0); Chloride 105 mmol/L (98-107)
[2024-03-27 10:16] LABS: Potassium 4.2 mmoL/L (3.5-5.1); Sodium 137 mmol/L (136-145)
[2024-03-27 10:18] LABS: Alanine Aminotransferase 17 U/L (12-78); Alkaline Phosphatase 54 U/L (38-126); Anion Gap 10.2 mEq/L (5-15); Aspartate Amino Transferase 26 U/L (14-36); Bilirubin,Indirect 1.4 mg/dL (0.0-0.9); Bilirubin,Total 1.4 mg/dl (0.2-1.3); Bilirubin,Unconjugated 1.5 mg/dL (0.0-1.1); Blood Urea Nitrogen 15 mg/dl (7-17); Carbon Dioxide 26 mmol/L (22.0-30.0); Estimated Glomerular Filt Rate 62 ml/min (>60); GFR (African American) 75 ML/MIN (>60); Total Protein,Serum 6.4 g/dl (6.3-8.2)
[2024-03-27 10:19] LABS: Calcium 9.5 mg/dl (8.4-10.2); Chol/HDL Ratio 2.4 (1-3.5); Cholesterol 119 mg/dl (140-200); Glucose 103 mg/dl (74-100); HDL Cholesterol 50 mg/dl (40-60); Triglycerides 122 mg/dl (30-150); VLDL Cholesterol 24 mg/dL (0-40)
[2024-03-27 10:30] LABS: Direct LDL Cholesterol 41.15 mg/dL (100-129)
[2024-03-27 10:36] LABS: Free T4 (Free Thyroxine) 1.27 ng/dl (0.78-2.19)
[2024-03-27 10:50] LABS: Thyroid Stimulating Hormone 0.79 uIU/mL (0.465-4.68)
== END 2024-03-27 23:59 | disposition home or self-care (01) ==
LOC: LAB 09:11
PROVIDERS: PCP Family Medicine; Visit Provider Nurse Practitioner
DX: R07.9 Chest pain, unspecified (principal); R06.00 Dyspnea, unspecified; R94.31 Abnormal electrocardiogram [ECG] [EKG]; R07.89 Other chest pain; Z72.0 Tobacco use; I25.10 Atherosclerotic heart disease of native coronary artery without angina pectoris; K21.9 Gastro-esophageal reflux disease without esophagitis; R06.09 Other forms of dyspnea
CPT/HCPCS: 36415; 80048; 80061; 80076; 84439; 84443; 85025

== ENCOUNTER 2024-07-01 17:03 | Outpatient (CLI) | payer MEDICARE, SELFPAY ==
[2024-07-01 15:00] LABS: Microscopic, Urine URINE MICROSCOPIC (MICROSCOPIC)
[2024-07-01 17:48] LABS: Appearance,Urine CLEAR (Clear); Bilirubin,Urine Negative (Negative); Blood, Urine 3+ (Negative); Color,Urine OTHER (Yellow); Glucose,Urine (UA) Negative (Negative); Ketones,Urine Negative (Negative); Leukocyte Esterase,Urine 1+ (Negative); Nitrate,Urine Negative (Negative); PH,Urine 5.5 (5.0-8.5); Protein,Urine 1+ (Negative); Specific Gravity, Urine 1.015 (1.005-1.030); Urobilinogen,Urine 0.2 EU/dl (0.2)
[2024-07-01 18:24] LABS: Bacteria,Urine 1+ /lpf; Mucus,Urine 1+ /lpf
== END 2024-07-01 23:59 | disposition home or self-care (01) ==
LOC: LAB.DROPOF 17:03
PROVIDERS: PCP Urology; Visit Provider Urology
DX: R31.9 Hematuria, unspecified (principal); N39.3 Stress incontinence (female) (male)
CPT/HCPCS: 81001; 87086

== ENCOUNTER 2024-07-04 09:49 | Outpatient (CLI) | payer MEDICARE, SELFPAY ==
--- NOTE | 2024-07-04 09:50 | US_ITS ---
FINAL REPORT CLINICAL HISTORY: Hemturia gross COMPARISON: None FINDINGS: ULTRASOUND BLADDER WITH POST VOID RESIDUAL Bladder volumes were estimated based on 3 dimensional measurements, pre- and postvoid. Prevoid bladder volume: 251 mls Postvoid bladder volume: 24 mls There is a lobular mass in the posterior urinary bladder measuring 5.1 x 2.5 cm concerning for bladder neoplasm. Some of this may represent adherent clot. IMPRESSION: Apparent bladder mass with questionable adherent clot. Can not exclude bladder neoplasm. Cystoscopy and urologic evaluation recommended. Minimal residual postvoid. Reviewed, Interpreted and Dictated by Boyd Stuart MD Transcribed by Karolyn Lopez Authenticated and [facility]
== END 2024-07-04 23:59 | disposition home or self-care (01) ==
LOC: RAD 09:50
PROVIDERS: PCP Urology; Visit Provider Urology
DX: R31.9 Hematuria, unspecified (principal); N39.3 Stress incontinence (female) (male)
CPT/HCPCS: 76857

== ENCOUNTER 2024-07-08 14:40 | Outpatient (CLI) | payer MEDICARE, SELFPAY ==
[2024-07-08 15:11] LABS: Blood Urea Nitrogen 24 mg/dl (7-17); Estimated Glomerular Filt Rate 34 ml/min (>60); GFR (African American) 42 ML/MIN (>60)
== END 2024-07-08 23:59 | disposition home or self-care (01) ==
LOC: LAB 14:41
PROVIDERS: PCP Family Medicine; Visit Provider Urology
DX: R31.9 Hematuria, unspecified (principal); N39.3 Stress incontinence (female) (male)
CPT/HCPCS: 36415; 82565; 84520

== ENCOUNTER 2024-07-15 09:27 | Outpatient (CLI) | payer MEDICARE, SELFPAY ==
[2024-07-15 09:33] LABS: Microscopic, Urine URINE MICROSCOPIC (MICROSCOPIC)
[2024-07-15 09:52] LABS: Appearance,Urine TURBID (Clear); Blood, Urine 3+ (Negative); Color,Urine RED (Yellow); Glucose,Urine (UA) TRACE (Negative); Ketones,Urine 1+ (Negative); Leukocyte Esterase,Urine 2+ (Negative); Nitrate,Urine POSITIVE (Negative); Protein,Urine 3+ (Negative)
[2024-07-15 09:54] LABS: Basophils # 0.1 K/mm3 (0-0.2); Basophils % 0.7 % (0.1-2.0); Eosinophils # 0.2 K/mm3 (0.0-0.4); Eosinophils % 2.4 % (0.1-12.0); Hematocrit 25.6 % (37.0-47.0); Hemoglobin 8.7 g/dL (12.2-16.2); Lymphocytes # 2.3 K/mm3 (0.7-4.5); Lymphocytes % 23.7 % (10-50); Mean Corpuscular Hemoglobin 31.9 pg (27.0-31.2); Mean Corpuscular Volume 93.8 fl (81-99); Mean Platelet Volume 8.5 fl (7.4-10.4); Monocytes # 0.6 K/mm3 (0.1-1.0); Monocytes % 6.3 % (1.7-9.3); Neutrophils # 6.4 K/mm3 (1.8-7.8); Neutrophils % 66.5 % (37.0-80.0); Platelet Count 311 K/mm3 (142-424); Red Blood Count 2.73 M/mm3 (4.20-5.40); Red Cell Distribution Width 13.1 % (11.5-17.5); White Blood Count 9.6 K/mm3 (4.8-10.8)
[2024-07-15 10:01] LABS: Bacteria,Urine 1+ /lpf; Bilirubin,Urine 1+ (Negative); RBC,Urine TNTC #/hpf (0-3); Squamous Epithelial Cell,Urine Occasional #/hpf (0-5); WBC,Urine Occasional #/hpf (0-3)
[2024-07-15 10:11] LABS: Creatinine,Urine Random 52 mg/dL (Not Estab.)
[2024-07-15 10:15] LABS: Anion Gap 12.2 mEq/L (5-15); Blood Urea Nitrogen 25 mg/dl (7-17); Calcium 9.4 mg/dl (8.4-10.2); Carbon Dioxide 24 mmol/L (22.0-30.0); Chloride 103 mmol/L (98-107); Estimated Glomerular Filt Rate 40 ml/min (>60); GFR (African American) 49 ML/MIN (>60); Glucose 113 mg/dl (74-100); Phosphorous 3.7 mg/dl (2.5-4.5); Potassium 4.2 mmoL/L (3.5-5.1); Sodium 135 mmol/L (136-145)
== END 2024-07-15 23:59 | disposition home or self-care (01) ==
PROVIDERS: PCP Family Medicine; Visit Provider Internal Medicine Nephrology
DX: N28.9 Disorder of kidney and ureter, unspecified (principal); N32.89 Other specified disorders of bladder; N95.2 Postmenopausal atrophic vaginitis; N39.3 Stress incontinence (female) (male); R31.9 Hematuria, unspecified
CPT/HCPCS: 36415; 80069; 81001; 82570; 84156; 85025; 87086

== ENCOUNTER 2024-07-22 12:10 | Emergency (ER) | payer MEDICARE, SELFPAY ==
[2024-07-22] VITALS (16 sets, daily range): BP systolic 122–144; BP diastolic 56–75; PULSE 82–95; RESP 14–18; TEMP 36.7–37.1; O2SAT 95–99; BMI 30.2
--- NOTE | 2024-07-22 12:24 | ED_ITS ---
<Statement entered by Angeles Houston MD - 07/27/24 07:19> I was consulted by the ZAK, and we discussed the complexity of the problems being addressed. I approved the treatment and management plan for this patient's care in the emergency department, thus performing a substantive portion of the medical decision making. Angeles Houston MD, GABI, FACEP Discharge Plan Disposition Chief Complaint: Shortness of Breath/Dyspnea Prescriptions Prescriptions: No Action bupropion HCl 75 mg tablet 75 mg PO BID irbesartan 300 mg tablet 300 mg PO DAILY Patient Comments: TAKE 1 TABLET BY MOUTH DAILY rosuvastatin 40 mg tablet 40 mg PO HS Patient Comments: TAKE 1 TABLET BY MOUTH DAILY meloxicam 15 mg tablet 15 mg PO DAILY PRN (Reason: .) Patient Comments: TAKE 1 TABLET BY MOUTH EVERY DAY NEEDED gabapentin 300 mg capsule 300 mg PO BID PRN (Reason: .) Patient Comments: TAKE ONE CAPSULE BY MOUTH TWO TIMES DAILY estradiol 0.01 % (0.1 mg/gram) cream 1 appful vaginal DAILY Qty: 42.5 3RF Rx Instructions: Use daily finger technique for 2 weeks and then three times weekly. hydroxychloroquine 200 mg tablet 200 mg PO DIRECTED Patient Comments: TAKE 1 TABLET BY MOUTH TWICE DAILY cyanocobalamin (vitamin B-12) 5,000 mcg capsule 5,000 mcg PO DAILY turmeric root extract 538 mg capsule 538 mg PO DAILY vitamin E (dl, acetate) 180 mg (400 unit) capsule 180 mg PO DAILY Saccharomyces boulardii [Daily Probiotic (S. boulardii)] 250 mg capsule 250 mg PO BID aspirin [Adult Low Dose Aspirin] 81 mg tablet,delayed release (DR/EC) 81 mg PO DAILY estradiol 0.01 % (0.1 mg/gram) cream See Rx Instructions vaginal .COMPLEX Qty: 42.5 2RF Rx Instructions: Using finger technique daily for 2 weeks and then 3x weekly vaginally; Referrals Follow up/Referrals: Luis Hatfield MD [Primary Care Provider] - See instructions Stand Alone Forms Stand Alone Forms: Transfer Record - ED Print Language Print Language: Lithuanian Discharge ED Provider: Angeles Houston HPI General Chief Complaint: Shortness of Breath/Dyspnea Stated Complaint: weakness, soa, fast pulse Time Seen by Provider: 07/22/24 12:23 History of Present Illness HPI narrative: Patient presents for evaluation of weakness and dyspnea on exertion patient has been recently diagnosed with a probable bladder mass from an episode of gross hematuria in May that resulted in seeing Dr. Steen who then ordered an ultrasound. She also has a CAT scan and a cystoscopy ordered. She apparently saw nephrology and was told that her hemoglobin was low but patient does not know what it was. Patient reports that she is just getting progressively more short of breath on exertion but not currently at rest she denies any chest pain fever chills hemoptysis hematochezia melena nausea vomiting diarrhea. Patient reports that she is still having gross hematuria with large clots frequently Related Data Home Medications ?Medication ?Instructions ?Recorded ?Confirmed Saccharomyces boulardii 250 mg 250 mg PO BID 03/29/23 07/22/24 capsule (Daily Probiotic (S. boulardii)) aspirin 81 mg tablet,delayed 81 mg PO DAILY 03/29/23 07/22/24 release (Adult Low Dose Aspirin) cyanocobalamin (vitamin B-12) 5,000 mcg PO DAILY 03/29/23 07/22/24 5,000 mcg capsule hydroxychloroquine 200 mg tablet 200 mg PO DIRECTED . 03/29/23 07/22/24 turmeric root extract 538 mg 538 mg PO DAILY 03/29/23 07/22/24 capsule vitamin E (dl, acetate) 180 mg 180 mg PO DAILY 03/29/23 07/22/24 (400 unit) capsule bupropion HCl 75 mg tablet 75 mg PO BID 11/02/23 07/22/24 irbesartan 300 mg tablet 300 mg PO DAILY 11/02/23 07/22/24 rosuvastatin 40 mg tablet 40 mg PO HS 11/02/23 07/22/24 gabapentin 300 mg capsule 300 mg PO BID PRN . 12/04/23 07/22/24 meloxicam 15 mg tablet 15 mg PO DAILY PRN . 12/04/23 07/22/24 Previous Rx's ?Medication ?Instructions ?Recorded estradiol 0.01% (0.1 mg/gram) 1 appful vaginal DAILY #42.5 grams 07/01/24 vaginal cream estradiol 0.01% (0.1 mg/gram) See Rx Instructions vaginal 07/08/24 vaginal cream .COMPLEX #42.5 grams Allergies Allergy/AdvReac Type Severity Reaction Status Date / Time codeine Allergy Intermediate NA-NAUSEA/V Verified 07/08/24 13:50 OMITING PFSH PFSH Disclaimer: The information contained in this section may have been updated after the patient was seen, as this information can be updated by other users. Medical History AV fistula Abnormal findings on diagnostic imaging of heart and coronary circulation [place] coronary artery calcium score greater than 400 Abnormal electrocardiogram [ECG] [EKG] Compression fracture GERD (gastroesophageal reflux disease) Lupus Rheumatoid arthritis Osteoarthritis Surgical History Hx of cholecystectomy History of tubal ligation Family History Other Unknown family medical history Social History Smoking Status: Current every day smoker tobacco type: cigarettes packs per day: 1 alcohol intake: never substance use type: denies use current occupational status: other Travel in the last 8 weeks: None household members: spouse housing: house current occupational exposures/hazards: No caffeine: Yes Have you lived/traveled outside [place] in past 30 days?: No Contact w/someone who lives/traveled outside US past 30 days?: No Exposure to someone with infectious disease in past 14 days?: No Do you have a fever (greater than 100.4 F or 38 C)?: No Have you tested positive for COVID-19: No Exposed to someone with COVID-19 in past 14 days?: No Do you have a sore throat?: No Do you have a cough?: No Do you have any weakness?: Yes Do you have any diarrhea?: No Are you experiencing any unusual bleeding?: No Do you have any muscle aches/pain?: No Do you have any abdominal pain?: No Are you experiencing loss of taste or smell?: No Other Medical History Have you received the Flu Vaccine for this season: No Have you received the Pneumonia Vaccine: Yes ROS Obtained: Yes Systems reviewed as appropriate & no additional complaints except as documented Physical Exam General General appearance: alert and in no apparent distress Respiratory Respiratory exam: Present normal lung sounds bilaterally Cardiovascular Cardiovascular exam: Present regular rate Neurological Exam Neurological exam: Present alert and oriented X3 HEART Score HEART Score HEART Score assessment performed?: Yes History (anamnesis): Slightly suspicious ECG: Non-specific disturbance Age: >65 years Risk factors: 3 or more risk factors Troponin: </= normal limit HEART Score: 5 Critical Care Critical Care Time Critical Care Time: Yes Attestation: On 07/22/24, the high probability of a clinically significant, sudden or life threatening deterioration of the following system(s) required my full and direct attention, intervention and personal management. The time I documented below is in addition to time spent performing reported procedures but includes the following listed in this critical care notation. Total Time Total Critical Care Time: 35 Medical Decision Making Medical Records Medical records reviewed: Yes I reviewed the patient's medical records. Ulisses Inquiry Pt receiving controlled substance: No Vital Signs Vital Signs: 07/22/24 12:11 07/22/24 13:11 07/22/24 13:15 Temperature 98.7 F Temperature Source Oral Pulse Rate 88 89 Pulse Rate [Left Radial] 95 H Respiratory Rate 18 Blood Pressure 125/56 L Blood Pressure [Right Arm] 125/72 Blood Pressure Mean Blood Pressure Mean [Right Arm] 89 Blood Pressure Source [Right Arm] Automatic Cuff 02 Sat by Pulse Oximetry 98 96 96 Oxygen Delivery Method Room Air Room Air Room Air 07/22/24 14:00 07/22/24 14:30 07/22/24 15:00 Temperature Temperature Source Pulse Rate 87 83 82 Pulse Rate [Left Radial] Respiratory Rate Blood Pressure 140/68 122/63 128/67 Blood Pressure [Right Arm] Blood Pressure Mean 82 Blood Pressure Mean [Right Arm] Blood Pressure Source [Right Arm] 02 Sat by Pulse Oximetry 99 96 97 Oxygen Delivery Method Room Air Room Air Room Air 07/22/24 15:30 07/22/24 16:00 Temperature Temperature Source Pulse Rate 83 86 Pulse Rate [Left Radial] Respiratory Rate Blood Pressure 141/68 H 126/75 Blood Pressure [Right Arm] Blood Pressure Mean Blood Pressure Mean [Right Arm] Blood Pressure Source [Right Arm] 02 Sat by Pulse Oximetry 97 98 Oxygen Delivery Method Room Air Room Air Lab Data Lab results reviewed: Yes I reviewed the patient's lab results. Labs: Lab Results 07/22/24 12:50: WBC 8.3, RBC 2.25 L, Hgb 7.2 L, Hct 22.0 L, MCV 97.8, MCH 32.0 H , MCHC 32.7, RDW 14.3, Plt Count 351, MPV 8.2, Neut % (Auto) 66.8, Lymph % (Auto) 24.3, [place] % (Auto) 6.0, Eos % (Auto) 1.9, Baso % (Auto) 0.6, Neut # (Auto) 5.5, Lymph # (Auto) 2.0, [place] # (Auto) 0.5, Eos # (Auto) 0.2, Baso # (Auto) 0.1, Sodium 135 L, Potassium 4.1, Chloride 101, Carbon Dioxide 27, Anion Gap 11.1, BUN 22 H, Creatinine 1.40 H, Estimated Creat Clear 44, Estimated GFR 37 L, Est GFR ( Amer) 45 L, Glucose 106 H, Calcium 9.4, Magnesium 1.9, Total Bilirubin 0.8, AST 33, ALT 17, Alkaline Phosphatase 68, Troponin I < 0.01, NT-Pro-B Natriuret Pep 79.1, Total Protein 6.5, Albumin 4.2, Globulin 2.3, Albumin/Globulin Ratio 1.8, HCV Ab MUMTAZ w/Rflx PCR Qn Negative, HIV Ag/Ab Combo Qual Negative, Blood Type Confirm O Negative 07/22/24 12:52: Urine Color Red, Urine Appearance Turbid, Urine pH 6.0, Ur Specific [place] >= 1.030, Urine Protein 3+ A, Urine Glucose (UA) Negative, Urine Ketones Negative, Urine Blood 3+ A, Urine Nitrate Negative, Urine Bilirubin Negative, Urine Urobilinogen 0.2, Ur Leukocyte Esterase Negative, Urine RBC Tntc, Urine WBC 5-10, Ur Squamous Epith Cells Occasional, Urine Bacteria Trace 07/22/24 13:00: PT 9.7, INR 0.87 L, Blood Type O Negative, Antibody Screen Negative, Crossmatch (AHG) See Detail 07/22/24 13:09: SARS-CoV-2 (PCR) Not detected, Influenza A Untype (PCR) Not detected, Influenza Type B (PCR) Not detected 07/22/24 12:50 07/22/24 12:50 Response Orders (Tests/Meds): ED MEDICATIONS Generic Name Dose Route Start Last Admin Trade Name Freq PRN Reason Stop Dose Admin Sodium Chloride 250 mls @ 25 mls/hr 07/22/24 15:15 Sod Chlor 0.9% 250ml Bag IV 07/23/24 15:14 .Q10H BRIAN Sodium Chloride 10 ml 07/22/24 13:30 07/22/24 13:31 Sodium Chloride 0.9% 10ml Syr (Rad Only) IV 08/21/24 13:29 10 ml NEEDED PRN Administration Maintain IV Site Discontinued Medications Generic Name Dose Route Start Last Admin Trade Name Freq PRN Reason Stop Dose Admin Lactated Ringer's 1,000 mls @ 999 mls/hr 07/22/24 12:32 07/22/24 12:54 Lactated Ringer's 1000 Ml Bag IV 07/22/24 13:32 999 mls/hr .Q1H1M ONE Administration Iopamidol 50 ml 07/22/24 13:30 07/22/24 13:31 Iopamidol-370 (76%);100ml Bottle IV 07/22/24 13:31 50 ml ONCE ONE Administration ORDERS Category Date Time Status Transfuse RBC's [Red Blood Cells] Stat BBK 07/22/24 13:00 Results Type and Screen Stat K 07/22/24 13:[address] abdomen pelvis w con Stat Cat Scan 07/22/24 12:32 Completed Chest XR -- portable [XR chest portable] Stat Exams 07/22/24 13:01 Completed BNP [NT Pro Brain Natriuretic Pep.] Stat Lab 07/22/24 12:50 Completed CBC w/Auto Diff [Complete Blood Count Auto Diff] Stat Lab 07/22/24 12:50 Completed CMP [Comprehensive Metabolic Panel] Stat Lab 07/22/24 12:50 Completed HIV Combo Stat Lab 07/22/24 12:50 Completed Hepatitis C Ab Qual. W/ RFX Stat Lab 07/22/24 12:50 Completed INR [Prothrombin Time INR] Stat Lab 07/22/24 13:00 Completed Magnesium Stat Lab 07/22/24 12:50 Completed Rapid PCR Covid and Flu A/B Stat Lab 07/22/24 13:09 Completed Trop I [Troponin I] Stat Lab 07/22/24 12:50 Completed Troponin I Q3H Lab 07/22/24 16:09 Received Troponin I Q3H Lab 07/22/24 19:15 Ordered UA [Urinalysis and Microscopic] Stat Lab 07/22/24 12:52 Completed MDM Narrative Medical Decision Narrative: In summary patient is a 69-year-old female who presents to the emergency department for evaluation of gross hematuria, dyspnea on exertion and light exercise intolerance. Patient is hemodynamically stable with a blood pressure 125/72 heart rate 95 with normal sinus rhythm on the bedside monitor breathing 18 times a minute satting at 98% on room air upon arrival, with a temperature of 98.7. Physical exam is remarkable for clear breath sounds without adventitious sounds, normal heart sounds, soft abdomen and discomfort in suprapubic palpation but no palpable masses rebound or guarding rigidity. Bowel sounds normal active.. Differential diagnosis includes acute blood loss anemia versus respiratory tract infection versus urinary tract infection versus ACS etc. Initial workup will be conducted with hematologic labs type and screen twelve- lead EKG plain film chest x-ray CT scan abdomen pelvis with contrast urinalysis respiratory panel. Initial interventions include crystalloid bolus for now. Initial workup reviewed by me shows that her hemoglobin has declined from 8.7 on July 14, 2019 25-7.2 today with a normal white count and normal differential, INR 0.87, creatinine is 1.4 BUN is 22 GFR is 37 troponin is less than 0.01 urinalysis shows 3+ protein 3+ blood nitrite and leukocyte Estrace negative on dipstick with a microscopic exam shows too numerous to count red cells 5-10 whites occasional squamous epithelial cells and trace bacteria, COVID and flu are negative, my informal interpretation of her CT scan abdomen pelvis shows significant right sided hydronephrosis and a posterior bladder wall mass prior to radiology read. The mass likely is the cause of the hydronephrosis of the right kidney. I have typed and screened the patient and ordered 1 unit of packed red blood cells, we have placed a [place] to accurately measure urinary output that was grossly heme positive on insertion. I had an interactive discussion at that point with Dr. Jack of the [facility] transfer center regarding patient CORTEZ management and findings and she has been recently excepted in transfer for evaluation to [facility] emergency department care of Dr. Jack.
--- NOTE | 2024-07-22 12:24 | ECG_ITS ---
APPROVED REPORT Exam: Resting ECG HR:91 bpm ECG Measurements Heart Rate 91 AXES CO 144 P 66 QRSd 126 QRS 35 QT 378 T 78 QTc 427 Conclusion SINUS RHYTHM MODERATE INTRAVENTRICULAR CONDUCTION DELAY [110+ ms QRS DURATION] NONSPECIFIC T-WAVE ABNORMALITY BORDERLINE ECG No STEMI Electronically signed by : MAGGI AYALA, 07/23/2024 06:57:34
--- NOTE | 2024-07-22 12:32 | CT_ITS ---
FINAL REPORT TECHNIQUE: After the administration of intravenous contrast, axial images were obtained through the abdomen and pelvis by computed tomography. This study was performed with technique to keep radiation doses as low as reasonably achievable, (ALARA). Individualized dose reduction techniques using automated exposure control or adjustment of the MA and/or KV according to the patient's size were employed. CLINICAL HISTORY: Gross hematuria FINDINGS: Abdomen: The lung bases are clear. The liver is normal in size and attenuation. Patient is status postcholecystectomy. The spleen is unremarkable. The adrenals are normal. The pancreas is unremarkable. There is moderate right hydroureteronephrosis without obstructing stone. 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 Left kidney is unremarkable. The aorta is normal in caliber. There is no free fluid or adenopathy. There is a moderate size hiatal hernia. Pelvis: The appendix is normal. Right ureter is dilated to the level of the urinary bladder. There is a lobular soft tissue mass in the posterior urinary bladder measuring up to 44 mm suspicious for neoplasm which likely accounts for obstruction. There is no pelvic adenopathy. Uterus is retroverted. IMPRESSION: Soft tissue density suspicious for mass likely resulting in right upper urinary tract obstruction. Reviewed, Interpreted and Dictated by Millie Alejandro MD Transcribed by Etta Adame Authenticated and [facility]
--- NOTE | 2024-07-22 12:48 | PC.NURSE ---
ROUNDED ON THE PT. THE PT VOICES THAT SHE DOES NOT NEED ANYTHING AT THIS TIME. CALL LIGHT IS WITHIN REACH OF THE PT.
[2024-07-22] MEDS: LACTATED RINGERS 1000ML 1,000 ML 999 ML IV (12:54)
[2024-07-22 12:59] LABS: Microscopic, Urine URINE MICROSCOPIC (MICROSCOPIC)
--- NOTE | 2024-07-22 13:01 | PC.NURSE ---
pt brought back to RM 11. ASSESSMENT pt states she has a bladder mass and has been having bloody urine for months. pt denies any pain. I brought her a blanket and pillow. no other needs voiced. call moon in reach.
--- NOTE | 2024-07-22 13:01 | XR_ITS ---
FINAL REPORT CLINICAL HISTORY: Shortness of breath on exertion COMPARISON: 12/05/2022 FINDINGS: No acute pulmonary opacity is present. There is evidence of old calcified granulomatous disease. There is no evidence of effusion or pneumothorax. Mediastinum is unremarkable. Heart size is normal. IMPRESSION: No acute findings. Reviewed, Interpreted and Dictated by Millie Alejandro MD Transcribed by Karolyn Lopez Authenticated and [facility]
--- NOTE | 2024-07-22 13:03 | PC.NURSE ---
[place] - Génesis moved to Rm 11, Report given to GALINA Miller.
[2024-07-22 13:11] LABS: Basophils # 0.1 K/mm3 (0-0.2); Basophils % 0.6 % (0.1-2.0); Eosinophils # 0.2 K/mm3 (0.0-0.4); Eosinophils % 1.9 % (0.1-12.0); Hemoglobin 7.2 g/dL (12.2-16.2); Lymphocytes % 24.3 % (10-50); Mean Corpuscular HGB Conc 32.7 g/dL (31.8-35.4); Mean Corpuscular Volume 97.8 fl (81-99); Mean Platelet Volume 8.2 fl (7.4-10.4); Monocytes # 0.5 K/mm3 (0.1-1.0); Neutrophils # 5.5 K/mm3 (1.8-7.8); Neutrophils % 66.8 % (37.0-80.0); Platelet Count 351 K/mm3 (142-424); Red Blood Count 2.25 M/mm3 (4.20-5.40); Red Cell Distribution Width 14.3 % (11.5-17.5); White Blood Count 8.3 K/mm3 (4.8-10.8)
[2024-07-22 13:15] LABS: Albumin Level 4.2 g/dl (3.5-5.0); Chloride 101 mmol/L (98-107)
[2024-07-22 13:15] LABS: Bilirubin,Urine Negative (Negative); Blood, Urine 3+ (Negative); Glucose,Urine (UA) Negative (Negative); Ketones,Urine Negative (Negative); Leukocyte Esterase,Urine Negative (Negative); Nitrate,Urine Negative (Negative); Protein,Urine 3+ (Negative); Specific Gravity, Urine >= 1.030 (1.005-1.030); Urobilinogen,Urine 0.2 EU/dl (0.2)
[2024-07-22 13:15] LABS: Coronavirus 19, PCR Not Detected (NotDetected); Influenza A, PCR Not Detected (NotDetected); Influenza B, PCR Not Detected (NotDetected)
[2024-07-22 13:16] LABS: Potassium 4.1 mmoL/L (3.5-5.1); Sodium 135 mmol/L (136-145)
[2024-07-22 13:18] LABS: Alanine Aminotransferase 17 U/L (12-78); Albumin/Globulin Ratio 1.8 (1.1-1.8); Anion Gap 11.1 mEq/L (5-15); Aspartate Amino Transferase 33 U/L (14-36); Bilirubin,Total 0.8 mg/dl (0.2-1.3); Blood Urea Nitrogen 22 mg/dl (7-17); Carbon Dioxide 27 mmol/L (22.0-30.0); Creatinine Clearance Estimated 44 mL/min (50-200); Estimated Glomerular Filt Rate 37 ml/min (>60); GFR (African American) 45 ML/MIN (>60); Globulin 2.3 g/dL (1.3-3.2); Total Protein,Serum 6.5 g/dl (6.3-8.2)
[2024-07-22 13:18] LABS: Appearance,Urine Turbid (Clear); Color,Urine Red (Yellow)
[2024-07-22 13:19] LABS: Alkaline Phosphatase 68 U/L (38-126); Calcium 9.4 mg/dl (8.4-10.2); Glucose 106 mg/dl (74-100); Magnesium 1.9 mg/dl (1.6-2.3)
--- NOTE | 2024-07-22 13:26 | PC.NURSE ---
Radiology came and talked to Dr. Houston about the risks of receiving contrast with kidney failure. I went bedside for Dr. Houston and relayed that he thinks it is safe per [employer]. Pt agreed to the contrast. Pt taken to radiology at this time.
[2024-07-22 13:28] LABS: NT Pro Brain Natriuretic Pep. 79.1 pg/mL (0-125)
[2024-07-22 13:30] LABS: Bacteria,Urine Trace /lpf; RBC,Urine TNTC #/hpf (0-3); Squamous Epithelial Cell,Urine Occasional #/hpf (0-5)
[2024-07-22] MEDS: SODIUM CHLORIDE 0.9% 10ML SYR (RAD ONLY) 10 ML IV (13:31)
[2024-07-22] MEDS: IOPAMIDOL-370 (76%);100ML BOTTLE 50 ML IV (13:31)
[2024-07-22 13:32] LABS: Troponin I < 0.01 ng/ml (0.00-0.034)
--- NOTE | 2024-07-22 13:57 | PC.NURSE ---
Radiology is aware to powershare images to [facility] and burn us an imaging disc.
[2024-07-22 14:09] LABS: INR 0.87 (0.9-1.1); Prothrombin Time 9.7 seconds (9.2-12.1)
[2024-07-22 14:23] LABS: HIV Combo NEGATIVE (Negative)
[2024-07-22 14:31] LABS: Hepatitis C Ab Qual. W/ RFX NEGATIVE (Negative)
--- NOTE | 2024-07-22 14:49 | PC.NURSE ---
Called MDs for possible admission; Don speaking with Dr. Jack
--- NOTE | 2024-07-22 14:55 | PC.NURSE ---
[facility] s/w Dr. Jack at
--- NOTE | 2024-07-22 16:08 | PC.NURSE ---
DON SPEAKING WITH [facility] AT THIS TIME
--- NOTE | 2024-07-22 16:22 | PC.NURSE ---
I picked up blood from the lab
--- NOTE | 2024-07-22 16:22 | PC.NURSE ---
I rounded on the pt and placed a 16fr urinary catheter due to obstruction. Catheter insertion was tolerated well by the pt. gross hematuria present upon insertion. no needs voiced. call moon in reach.
[2024-07-22] MEDS: 0.9 % SODIUM CHLORIDE 250 ML 25 ML IV (16:45)
[2024-07-22 16:49] LABS: Troponin I < 0.01 ng/ml (0.00-0.034)
--- NOTE | 2024-07-22 16:58 | PC.NURSE ---
I called report to Bisi MOJICA at [facility]
--- NOTE | 2024-07-22 17:19 | PC.NURSE ---
NOTIFYING [facility] PT IS READY FOR TRANSPORT
--- NOTE | 2024-07-22 17:36 | PC.NURSE ---
Pt d/c with EMS for transfer to ED. Blood administration will be continued by Jason MATTHEWS
--- NOTE | 2024-07-22 17:39 | PC.NURSE ---
[facility] HERE FOR TRANSFER TO [facility]
== END 2024-07-22 17:40 | disposition short-term general hospital (02) ==
PROVIDERS: Physician Assistant; Emergency Provider Student in an Organized Health Care Education/Training Program; PCP Family Medicine
DX: D62 Acute posthemorrhagic anemia (principal); N32.0 Bladder-neck obstruction; R53.1 Weakness; R06.09 Other forms of dyspnea; R31.0 Gross hematuria; F17.210 Nicotine dependence, cigarettes, uncomplicated
CPT/HCPCS: 36430; 51702; 71045; 74177; 80053; 81001; 83735; 83880; 84484; 85025; 85610; 86803; 86850; 87389; 87636; 93005; 96360; 99291; J7120; P9016; Q9967

== ENCOUNTER 2024-08-05 11:23 | Outpatient (CLI) | payer MEDICARE, SELFPAY ==
[2024-08-05 11:40] LABS: Microscopic, Urine URINE MICROSCOPIC (MICROSCOPIC)
[2024-08-05 12:02] LABS: Appearance,Urine CLEAR (Clear); Bilirubin,Urine Negative (Negative); Blood, Urine 2+ (Negative); Color,Urine YELLOW (Yellow); Glucose,Urine (UA) Negative (Negative); Ketones,Urine Negative (Negative); Leukocyte Esterase,Urine 2+ (Negative); Nitrate,Urine Negative (Negative); Protein,Urine 2+ (Negative); Specific Gravity, Urine >= 1.030 (1.005-1.030); Urobilinogen,Urine 0.2 EU/dl (0.2)
[2024-08-05 12:10] LABS: Creatinine,Urine Random 93 mg/dL (Not Estab.)
[2024-08-05 12:29] LABS: Bacteria,Urine Trace /lpf
[2024-08-05 13:50] LABS: Chloride 99 mmol/L (98-107)
[2024-08-05 13:51] LABS: Albumin Level 4.1 g/dl (3.5-5.0); Potassium 4.3 mmoL/L (3.5-5.1); Sodium 133 mmol/L (136-145)
[2024-08-05 13:53] LABS: Anion Gap 13.3 mEq/L (5-15); Blood Urea Nitrogen 17 mg/dl (7-17); Carbon Dioxide 25 mmol/L (22.0-30.0); Estimated Glomerular Filt Rate 44 ml/min (>60); GFR (African American) 54 ML/MIN (>60)
[2024-08-05 13:54] LABS: Calcium 9.5 mg/dl (8.4-10.2); Creatine Kinase 70 U/L (30-135); Glucose 101 mg/dl (74-100); Phosphorous 3.8 mg/dl (2.5-4.5)
[2024-08-06 12:21] LABS: Anti-DNA (DS) Ab Qn 13 IU/mL (0-9)
[2024-08-07 13:50] LABS: Miscellaneous Test SCANNED IMAGE
== END 2024-08-05 23:59 | disposition home or self-care (01) ==
LOC: LAB 11:24
PROVIDERS: PCP Family Medicine; Visit Provider Internal Medicine Nephrology
DX: N17.9 Acute kidney failure, unspecified (principal); R80.9 Proteinuria, unspecified
CPT/HCPCS: 36415; 80069; 81001; 82550; 82570; 83516; 84156; 86037; 86225; 87086

== ENCOUNTER 2024-08-12 14:46 | Outpatient (CLI) | payer MEDICARE, SELFPAY ==
--- NOTE | 2024-08-12 14:50 | US_ITS ---
FINAL REPORT CLINICAL HISTORY: HEMATURIA COMPARISON: None FINDINGS: RENAL ULTRASOUND Ultrasound images of the kidneys were obtained. Limited images of the liver parenchyma demonstrates normal echogenicity. The right kidney measures 11.4 cm in length. The left kidney measures 11.1 cm in length. The kidneys are normal in size. There is mild bilateral hydronephrosis. No obvious renal mass is identified. There is a pseudomass in the central left kidney caused by a normal cortical medullary tissue. A left-sided stent is noted. IMPRESSION: Mild bilateral hydronephrosis. Reviewed, Interpreted and Dictated by Millie Alejandro MD Transcribed by Karolyn Lopez Authenticated and [facility]
--- NOTE | 2024-08-12 14:50 | US_ITS ---
FINAL REPORT CLINICAL HISTORY: . hematuria / bladder mass recently removed COMPARISON: None FINDINGS: ULTRASOUND BLADDER WITH POST VOID RESIDUAL Bladder volumes were estimated based on 3 dimensional measurements, pre- and postvoid. Prevoid bladder volume: 174 mls Postvoid bladder volume: 48 mls, abnormally high There is a linear filling defect in the posterior bladder compatible with stent. No obvious mass or bladder wall thickening. IMPRESSION: Mild abnormal retention postvoid residual without gross bladder wall thickening.. Reviewed, Interpreted and Dictated by Millie Alejandro MD Transcribed by Karolyn Lopez Authenticated and [facility]
== END 2024-08-12 23:59 | disposition home or self-care (01) ==
LOC: RAD 14:47
PROVIDERS: PCP Family Medicine; Visit Provider Internal Medicine Nephrology
DX: R31.0 Gross hematuria (principal)
CPT/HCPCS: 76770; 76857

== ENCOUNTER 2024-08-23 09:44 | Outpatient (CLI) | payer MEDICARE, SELFPAY ==
[2024-08-23 10:17] LABS: Basophils # 0.1 K/mm3 (0-0.2); Basophils % 0.6 % (0.1-2.0); Eosinophils # 0.3 K/mm3 (0.0-0.4); Eosinophils % 3.8 % (0.1-12.0); Hemoglobin 11.4 g/dL (12.2-16.2); Lymphocytes # 1.6 K/mm3 (0.7-4.5); Lymphocytes % 19.6 % (10-50); Mean Corpuscular HGB Conc 33.5 g/dL (31.8-35.4); Mean Corpuscular Hemoglobin 30.2 pg (27.0-31.2); Mean Corpuscular Volume 89.9 fl (81-99); Mean Platelet Volume 8.3 fl (7.4-10.4); Monocytes # 0.5 K/mm3 (0.1-1.0); Monocytes % 5.6 % (1.7-9.3); Neutrophils # 5.8 K/mm3 (1.8-7.8); Neutrophils % 70.2 % (37.0-80.0); Platelet Count 317 K/mm3 (142-424); Red Blood Count 3.78 M/mm3 (4.20-5.40); Red Cell Distribution Width 13.4 % (11.5-17.5); White Blood Count 8.3 K/mm3 (4.8-10.8)
[2024-08-23 10:44] LABS: Alanine Aminotransferase 15 U/L (12-78); Albumin Level 4.5 g/dl (3.5-5.0); Anion Gap 12.2 mEq/L (5-15); Aspartate Amino Transferase 28 U/L (14-36); Bilirubin,Total 0.6 mg/dl (0.2-1.3); Blood Urea Nitrogen 16 mg/dl (7-17); Calcium 9.8 mg/dl (8.4-10.2); Carbon Dioxide 24 mmol/L (22.0-30.0); Chloride 105 mmol/L (98-107); Estimated Glomerular Filt Rate 55 ml/min (>60); GFR (African American) 66 ML/MIN (>60); Globulin 2.2 g/dL (1.3-3.2); Glucose 103 mg/dl (74-100); Potassium 4.2 mmoL/L (3.5-5.1); Sodium 137 mmol/L (136-145); Total Protein,Serum 6.7 g/dl (6.3-8.2)
[2024-08-23 10:45] LABS: Alkaline Phosphatase 98 U/L (38-126)
[2024-08-23 12:27] LABS: Iron 38 ug/dL (37-170)
[2024-08-23 12:37] LABS: Total Iron Binding Capacity 386 ug/dL (265-497)
[2024-08-23 12:46] LABS: T4 (Thyroxine) 9.6 ug/dl (5.53-11.0)
[2024-08-23 13:00] LABS: Thyroid Stimulating Hormone 1.34 uIU/mL (0.465-4.68)
[2024-08-23 13:06] LABS: Ferritin 27.3 ng/ml (11.1-264)
== END 2024-08-23 23:59 | disposition home or self-care (01) ==
LOC: LAB 09:45
PROVIDERS: PCP Family Medicine; Visit Provider Internal Medicine Medical Oncology
DX: C67.9 Malignant neoplasm of bladder, unspecified (principal); D62 Acute posthemorrhagic anemia
CPT/HCPCS: 36415; 80053; 82728; 83540; 83550; 84436; 84443; 85025

== ENCOUNTER 2024-09-04 08:06 | Outpatient (CLI) | payer MEDICARE, SELFPAY ==
[2024-09-04 08:22] VITALS: BMI 30.5
[2024-09-04 08:28] LABS: Basophils # 0.1 K/mm3 (0-0.2); Basophils % 0.6 % (0.1-2.0); Eosinophils # 0.3 K/mm3 (0.0-0.4); Eosinophils % 3.7 % (0.1-12.0); Hematocrit 28.6 % (37.0-47.0); Hemoglobin 9.5 g/dL (12.2-16.2); Lymphocytes # 1.3 K/mm3 (0.7-4.5); Lymphocytes % 14.6 % (10-50); Mean Corpuscular HGB Conc 33.2 g/dL (31.8-35.4); Mean Corpuscular Hemoglobin 29.7 pg (27.0-31.2); Mean Corpuscular Volume 89.4 fl (81-99); Mean Platelet Volume 8.1 fl (7.4-10.4); Monocytes # 0.9 K/mm3 (0.1-1.0); Monocytes % 10.1 % (1.7-9.3); Neutrophils % 70.6 % (37.0-80.0); Platelet Count 341 K/mm3 (142-424); Red Cell Distribution Width 13.5 % (11.5-17.5); White Blood Count 8.5 K/mm3 (4.8-10.8)
[2024-09-04 08:30] VITALS: BP 129/68; PULSE 73; RESP 18; TEMP 36.8; O2SAT 99
[2024-09-04 08:40] LABS: Alanine Aminotransferase 15 U/L (12-78); Albumin Level 3.8 g/dl (3.5-5.0); Albumin/Globulin Ratio 1.4 (1.1-1.8); Alkaline Phosphatase 80 U/L (38-126); Aspartate Amino Transferase 29 U/L (14-36); Bilirubin,Total 0.5 mg/dl (0.2-1.3); Blood Urea Nitrogen 27 mg/dl (7-17); Calcium 9.3 mg/dl (8.4-10.2); Carbon Dioxide 18 mmol/L (22.0-30.0); Creatinine Clearance Estimated 33 mL/min (50-200); Estimated Glomerular Filt Rate 26 ml/min (>60); GFR (African American) 32 ML/MIN (>60); Globulin 2.7 g/dL (1.3-3.2); Glucose 111 mg/dl (74-100); Potassium 4.3 mmoL/L (3.5-5.1); Sodium 134 mmol/L (136-145); Total Protein,Serum 6.5 g/dl (6.3-8.2)
[2024-09-04] MEDS: 0.9 % SODIUM CHLORIDE 1000ML 1,000 ML 999 ML IV (09:15)
[2024-09-04 09:35] LABS: Anion Gap 17.3 mEq/L (5-15); Chloride 103 mmol/L (98-107)
[2024-09-04 10:54] LABS: Microscopic, Urine URINE MICROSCOPIC (MICROSCOPIC)
[2024-09-04 10:58] LABS: Appearance,Urine CLEAR (Clear); Bilirubin,Urine Negative (Negative); Blood, Urine TRACE-I (Negative); Color,Urine YELLOW (Yellow); Glucose,Urine (UA) Negative (Negative); Ketones,Urine Negative (Negative); Leukocyte Esterase,Urine MODERATE (Negative); Nitrate,Urine Negative (Negative); Protein,Urine Negative (Negative); Specific Gravity, Urine <= 1.005 (1.005-1.030); Urobilinogen,Urine 0.2 EU/dl (0.2)
[2024-09-04 11:25] LABS: Bacteria,Urine Trace /lpf; RBC,Urine Occasional #/hpf (0-3); Squamous Epithelial Cell,Urine Occasional #/hpf (0-5); WBC,Urine Occasional #/hpf (0-3)
== END 2024-09-04 10:20 | disposition home or self-care (01) ==
LOC: INF 08:07
PROVIDERS: PCP Family Medicine; Visit Provider Internal Medicine Medical Oncology
DX: C67.9 Malignant neoplasm of bladder, unspecified (principal)
CPT/HCPCS: 36415; 80053; 81001; 85025; 87086; 96360; J7030

== ENCOUNTER 2024-09-11 07:53 | Outpatient (CLI) | payer MEDICARE, SELFPAY ==
[2024-09-11 08:10] VITALS: BMI 30.5
[2024-09-11 08:28] LABS: Basophils # 0.1 K/mm3 (0-0.2); Basophils % 0.5 % (0.1-2.0); Eosinophils # 0.3 K/mm3 (0.0-0.4); Eosinophils % 2.5 % (0.1-12.0); Hematocrit 26.1 % (37.0-47.0); Hemoglobin 8.7 g/dL (12.2-16.2); Lymphocytes # 1.5 K/mm3 (0.7-4.5); Lymphocytes % 13.5 % (10-50); Mean Corpuscular HGB Conc 33.3 g/dL (31.8-35.4); Mean Corpuscular Hemoglobin 29.4 pg (27.0-31.2); Mean Corpuscular Volume 88.2 fl (81-99); Monocytes # 1.1 K/mm3 (0.1-1.0); Monocytes % 10.2 % (1.7-9.3); Neutrophils % 72.9 % (37.0-80.0); Platelet Count 401 K/mm3 (142-424); Red Blood Count 2.96 M/mm3 (4.20-5.40); Red Cell Distribution Width 13.8 % (11.5-17.5)
[2024-09-11 08:45] LABS: Albumin Level 3.5 g/dl (3.5-5.0); Chloride 111 mmol/L (98-107); Potassium 4.6 mmoL/L (3.5-5.1); Sodium 138 mmol/L (136-145)
[2024-09-11 08:48] LABS: Alanine Aminotransferase 12 U/L (12-78); Albumin/Globulin Ratio 1.1 (1.1-1.8); Alkaline Phosphatase 96 U/L (38-126); Anion Gap 18.6 mEq/L (5-15); Aspartate Amino Transferase 26 U/L (14-36); Bilirubin,Total 0.5 mg/dl (0.2-1.3); Blood Urea Nitrogen 30 mg/dl (7-17); Carbon Dioxide 13 mmol/L (22.0-30.0); Creatinine Clearance Estimated 18 mL/min (50-200); Estimated Glomerular Filt Rate 13 ml/min (>60); GFR (African American) 16 ML/MIN (>60); Globulin 3.2 g/dL (1.3-3.2); Total Protein,Serum 6.7 g/dl (6.3-8.2)
[2024-09-11 08:49] LABS: Calcium 8.9 mg/dl (8.4-10.2); Glucose 94 mg/dl (74-100)
--- NOTE | 2024-09-11 10:11 | PC.NURSE ---
2931- ANN MARIE Saavedra called about pt lab results. Dr galloway ordered 500ml of NS to start now, as he is attempting to contact pt urologist. 4112- MD Santiago spoke with urologist and wants pt to go to ER at this time. Dr. Robles is expecting pt. IV fluids D/C and IV removed. pt and daughter verbalized understanding.
== END 2024-09-11 09:45 | disposition home or self-care (01) ==
LOC: INF 07:54
PROVIDERS: PCP Family Medicine; Visit Provider Internal Medicine Medical Oncology
DX: C67.9 Malignant neoplasm of bladder, unspecified (principal)
CPT/HCPCS: 36415; 80053; 85025

== ENCOUNTER 2024-09-20 11:14 | Emergency (ER) | payer MEDICARE, SELFPAY ==
[2024-09-20] VITALS (12 sets, daily range): BP systolic 116–166; BP diastolic 58–99; PULSE 89–98; RESP 16–19; TEMP 36.7; O2SAT 92–97; BMI 30.7
--- NOTE | 2024-09-20 11:23 | ECG_ITS ---
APPROVED REPORT Exam: Resting ECG HR:91 bpm ECG Measurements Heart Rate 91 AXES OH 190 P 65 QRSd 125 QRS 31 QT 383 T 86 QTc 432 Conclusion SINUS RHYTHM ANTEROSEPTAL MYOCARDIAL INFARCTION , OF INDETERMINATE AGE [40+ ms Q WAVE IN V1-V4] ABNORMAL ECG UNCONFIRMED REPORT Electronically signed by : FAUZIA HART, 09/22/2024 03:41:46
--- NOTE | 2024-09-20 11:35 | CT_ITS ---
FINAL REPORT CLINICAL HISTORY: bladder cancer/dizzy COMPARISON: None FINDINGS: CTA HEAD TECHNIQUE: Thin section axial CT with contrast with 3D MIP reconstruction This study was performed with techniques to keep radiation doses as low as reasonably achievable, (ALARA). Individualized dose reduction techniques using automated exposure control or adjustment of mA and/or kV according to the patient's size were employed. FINDINGS: No aneurysm is seen. Major intracranial vessels are patent without significant stenosis. . 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 IMPRESSION: Unremarkable CTA of the intracranial vessels. This study was performed using automated techniques to achieve radiation exposure as low as reasonably achievable Reviewed, Interpreted and Dictated by Millie Alejandro MD Transcribed by Colleen Duran Authenticated and [facility]
--- NOTE | 2024-09-20 11:35 | CT_ITS ---
FINAL REPORT TECHNIQUE: Noncontrast exam This study was performed with techniques to keep radiation doses as low as reasonably achievable, (ALARA). Individualized dose reduction techniques using automated exposure control or adjustment of mA and/or kV according to the patient's size were employed. CLINICAL HISTORY: bladder cancer/dizzy COMPARISON: None FINDINGS: CT HEAD: No abnormal density is seen. Ventricles are normal. There is no hemorrhage. No mass effect is seen. Bone windows show no evidence of fracture. IMPRESSION: No acute findings Reviewed, Interpreted and Dictated by Millie Alejandro MD Transcribed by Colleen Duran Authenticated and [facility]
--- NOTE | 2024-09-20 11:35 | CT_ITS ---
FINAL REPORT TECHNIQUE: Thin section axial CT with contrast with multiplanar reconstruction This study was performed with techniques to keep radiation doses as low as reasonably achievable, (ALARA). Individualized dose reduction techniques using automated exposure control or adjustment of mA and/or kV according to the patient''s size were employed. CLINICAL HISTORY: bladder cancer/dizzy COMPARISON: 09/22/2023 FINDINGS: Pulmonary vessels enhance in normal fashion without evidence of embolism. Thoracic aorta shows no dissection or aneurysm. There are new pulmonary nodules suspicious for metastases. These are noted within both lungs. Measured nodule of the right upper lobe is 8 mm on image 53, series 5. Right lower lobe nodules are seen near the lateral costophrenic angle, largest is 21 x 7 mm on image 86. The largest left lung nodule is seen in the left lower lobe measures 8 mm. There is mild subcarinal adenopathy. Right infrahilar adenopathy measures 16 mm. There is no significant pleural effusion. There is no significant pericardial effusion. IMPRESSION: No evidence of pulmonary embolism. Interval development of pulmonary metastases and presumed metastatic adenopathy. Reviewed, Interpreted and Dictated by Millie Alejandro MD Transcribed by Deena Gipson Authenticated and [facility]
--- NOTE | 2024-09-20 11:35 | CT_ITS ---
FINAL REPORT TECHNIQUE: IV contrast enhanced exam This study was performed with techniques to keep radiation doses as low as reasonably achievable, (ALARA). Individualized dose reduction techniques using automated exposure control or adjustment of mA and/or kV according to the patient's size were employed. CLINICAL HISTORY: bladder cancer/dizzy COMPARISON: 07/22/2024 FINDINGS: CT ABDOMEN PELVIS WITH CONTRAST: Abdomen: Lung bases are clear. There is a 4 mm anterior liver dome hypodense lesion, best seen on image #20 of series 4. This was not seen on the prior CT of 07/22/2024, and may represent a metastasis in this patient with known bladder carcinoma. There is a second lesion in the liver, measuring 5 mm in size, best seen on image #35, which is likely a cyst, and is stable when compared to the prior exam. The spleen, pancreas and adrenal glands are unremarkable. Since the prior exam, there has been interval placement of bilateral nephrostomy tubes. The right sided hydronephrosis has resolved. There is a right internal ureteral stent present as well. No upper abdominal adenopathy is identified. No bowel obstruction or fluid collection is seen. Pelvis: The appendix is not visualized. Pelvic bowel loops are unremarkable. There is a mass in the bladder base, which measures 52 x 35 mm in size. No pelvic adenopathy is identified. IMPRESSION: Resolved right hydronephrosis since the prior exam of 07/22/2024, with bilateral nephrostomy tubes and a right internal ureteral stent present. Mass in the bladder base is noted. There is a new lesion in the liver dome compared with the prior exam, favor metastasis. Reviewed, Interpreted and Dictated by Millie Alejandro MD Transcribed by Colleen Duran Authenticated and [facility]
--- NOTE | 2024-09-20 11:35 | CT_ITS ---
FINAL REPORT CLINICAL HISTORY: bladder cancer/dizzy COMPARISON: None FINDINGS: CT NECK ANGIO, WITHOUT AND WITH CONTRAST TECHNIQUE: Thin section axial CT with contrast with multiplanar 3D MIP reconstruction. This study was performed with techniques to keep radiation doses as low as reasonably achievable, (ALARA). Individualized dose reduction techniques using automated exposure control or adjustment of mA and/or kV according to the patient's size were employed. NASCET criteria and technique was utilized during interpretation. FINDINGS: Aortic arch: Arch shows no significant narrowing. Great vessel origins are widely patent. Right carotid: There is 50% stenosis of the right internal carotid artery. Left carotid: There is mild 20% stenosis of the proximal left internal carotid artery. Vertebrals: The vertebral arteries are codominant. No significant stenosis is present. IMPRESSION: 50% right internal carotid artery stenosis. Mild 20% proximal left internal carotid artery stenosis. This study was performed using automated techniques to achieve radiation exposure as low as reasonably Reviewed, Interpreted and Dictated by Millie Alejandro MD Transcribed by Colleen Duran Authenticated and [facility]
--- NOTE | 2024-09-20 11:38 | ED_ITS ---
Discharge Plan Disposition Chief Complaint: Dizziness Prescriptions Prescriptions: No Action bupropion HCl 75 mg tablet 75 mg PO BID irbesartan 300 mg tablet 300 mg PO DAILY Patient Comments: TAKE 1 TABLET BY MOUTH DAILY rosuvastatin 40 mg tablet 40 mg PO HS Patient Comments: TAKE 1 TABLET BY MOUTH DAILY meloxicam 15 mg tablet 15 mg PO DAILY PRN (Reason: .) Patient Comments: TAKE 1 TABLET BY MOUTH EVERY DAY NEEDED gabapentin 300 mg capsule 300 mg PO BID PRN (Reason: .) Patient Comments: TAKE ONE CAPSULE BY MOUTH TWO TIMES DAILY estradiol 0.01 % (0.1 mg/gram) cream 1 appful vaginal DAILY Qty: 42.5 3RF Rx Instructions: Use daily finger technique for 2 weeks and then three times weekly. hydroxychloroquine 200 mg tablet 200 mg PO DIRECTED Patient Comments: TAKE 1 TABLET BY MOUTH TWICE DAILY cyanocobalamin (vitamin B-12) 5,000 mcg capsule 5,000 mcg PO DAILY turmeric root extract 538 mg capsule 538 mg PO DAILY vitamin E (dl, acetate) 180 mg (400 unit) capsule 180 mg PO DAILY Saccharomyces boulardii [Daily Probiotic (S. boulardii)] 250 mg capsule 250 mg PO BID aspirin [Adult Low Dose Aspirin] 81 mg tablet,delayed release (DR/EC) 81 mg PO DAILY estradiol 0.01 % (0.1 mg/gram) cream See Rx Instructions vaginal .COMPLEX Qty: 42.5 2RF Rx Instructions: Using finger technique daily for 2 weeks and then 3x weekly vaginally; dexamethasone 4 mg tablet 4 mg PO BID MDD 8 mg twice daily x 3 days Qty: 72 0RF Rx Instructions: take 2 tablets by mouth twice daily for 3 days, starting the day after chemotherapy repeat with each cycle (total of 6 cycles) prochlorperazine maleate 10 mg tablet 10 mg PO Q6H PRN (Reason: nausea and vomiting) Qty: 30 0RF Rx Instructions: take one tablet as needed every 6 hrs for n/v r/t chemotherapy Referrals Follow up/Referrals: Luis Hatfield MD [Primary Care Provider] - See instructions Clinical Impressions Clinical Impression: Metastatic disease, Acute UTI, Dizziness Print Language Print Language: Citizen Of [place] Discharge ED Provider: Mega Rodriguez General Adult HPI General Chief complaint: Dizziness Stated complaint: dizziness, vomiting Time Seen by Provider: 04/11/25 11:23 History of Present Illness HPI narrative: Patient is a 69-year-old female with past medical history of diagnosed bladder cancer, lupus on hydroxychloroquine who presents emergency department for evaluation of dizziness. Onset was acute, occurring since 4 AM, worse with ambulation but also occurs at rest, no focal weakness, patient has maintained ambulation, no trauma, no difficulty speaking. Patient was at [facility] last week and had bilateral nephrostomy tubes placed with success, she does not make regular urine from her urethra since this. No other acute complaints at this time. Please note that above description of symptoms, in this electronic medical record under categorization of recalled from ER triage doctor by RN are reflective of an initial nursing assessment, however, is not reflective of my full history and physical exam that was personally taken and clarified. Consequentially, this preceding description of symptoms, which may include the patient's categorized chief complaint in the EMR, do not reflect my personal clinical impression, and the ultimate description of history of present illness and patient stated complaints should be deferred to this section of the note. Unless stated otherwise or congruent with this section of the note, additional signs, symptoms, or incongruence should be interpreted as inaccurate with my clinical impression. Related Data Home Medications ?Medication ?Instructions ?Recorded ?Confirmed Saccharomyces boulardii 250 mg 250 mg PO BID 03/29/23 09/11/24 capsule (Daily Probiotic (S. boulardii)) aspirin 81 mg tablet,delayed 81 mg PO DAILY 03/29/23 09/11/24 release (Adult Low Dose Aspirin) cyanocobalamin (vitamin B-12) 5,000 mcg PO DAILY 03/29/23 09/11/24 5,000 mcg capsule hydroxychloroquine 200 mg tablet 200 mg PO DIRECTED . 03/29/23 09/11/24 turmeric root extract 538 mg 538 mg PO DAILY 03/29/23 09/11/24 capsule vitamin E (dl, acetate) 180 mg 180 mg PO DAILY 03/29/23 09/11/24 (400 unit) capsule bupropion HCl 75 mg tablet 75 mg PO BID 11/02/23 09/11/24 irbesartan 300 mg tablet 300 mg PO DAILY 11/02/23 09/11/24 rosuvastatin 40 mg tablet 40 mg PO HS 11/02/23 09/11/24 gabapentin 300 mg capsule 300 mg PO BID PRN . 12/04/23 09/11/24 meloxicam 15 mg tablet 15 mg PO DAILY PRN . 12/04/23 09/11/24 Previous Rx's ?Medication ?Instructions ?Recorded estradiol 0.01% (0.1 mg/gram) 1 appful vaginal DAILY #42.5 grams 07/01/24 vaginal cream estradiol 0.01% (0.1 mg/gram) See Rx Instructions vaginal 07/08/24 vaginal cream .COMPLEX #42.5 grams dexamethasone 4 mg tablet 4 mg PO BID chemotherapy #72 tabs 09/02/24 prochlorperazine maleate 10 mg 10 mg PO Q6H PRN nausea and 09/02/24 tablet vomiting #30 tabs Allergies Allergy/AdvReac Type Severity Reaction Status Date / Time codeine Allergy Intermediate NA-NAUSEA/V Verified 09/20/24 12:37 OMITING PFSH PFSH Disclaimer: The information contained in this section may have been updated after the patient was seen, as this information can be updated by other users. Medical History AV fistula Abnormal findings on diagnostic imaging of heart and coronary circulation [place] coronary artery calcium score greater than 400 Abnormal electrocardiogram [ECG] [EKG] Compression fracture GERD (gastroesophageal reflux disease) Lupus Rheumatoid arthritis Osteoarthritis Surgical History Hx of cholecystectomy History of tubal ligation Family History Other Unknown family medical history Social History Smoking Status: Current every day smoker tobacco type: cigarettes packs per day: 1 alcohol intake: never substance use type: denies use current occupational status: other Travel in the last 8 weeks: None household members: spouse housing: house current occupational exposures/hazards: No caffeine: Yes Have you lived/traveled outside [place] in past 30 days?: No Contact w/someone who lives/traveled outside US past 30 days?: No Exposure to someone with infectious disease in past 14 days?: No Do you have a fever (greater than 100.4 F or 38 C)?: No Have you tested positive for COVID-19: No Exposed to someone with COVID-19 in past 14 days?: No Do you have a sore throat?: No Do you have a cough?: No Do you have any weakness?: No Do you have any diarrhea?: No Are you experiencing any unusual bleeding?: No Do you have any muscle aches/pain?: No Do you have any abdominal pain?: No Are you experiencing loss of taste or smell?: No Other Medical History Have you received the Flu Vaccine for this season: No Have you received the Pneumonia Vaccine: Yes ROS Obtained: Yes Systems reviewed as appropriate & no additional complaints except as documented Physical Exam General General appearance: alert and in no apparent distress Head Head exam: atraumatic and normocephalic Eye Eye exam: Present PERRL and EOMI ENT ENT exam: Present mucous membranes moist Neck Neck exam: Present normal inspection Chest Chest inspection: Present normal inspection and symmetric chest wall rise Respiratory Respiratory exam: Present normal lung sounds bilaterally; Absent respiratory distress Cardiovascular Cardiovascular exam: Present regular rate and normal rhythm Abdominal Exam Abdominal exam: Present soft; Absent tenderness Extremities Exam Extremities exam: Present normal inspection Back Exam Back exam: Present other (Bilateral nephrostomy tubes in place.) Neurological Exam Neurological exam: Present alert, CN II-XII intact and other (Finger-nose intact bilateral); Absent motor sensory deficit Psychiatric Psychiatric exam: Present normal affect Skin Skin exam: Present warm and dry Medical Decision Making Medical Records Screening: Per USPSTF and CDC recommendations, given the prevalence of disease in our region, it is our hospital?s policy to screen for HIV and viral Hepatitis for all patients aged 18 and over and those with ongoing risk factors. Ulisses Inquiry Pt receiving controlled substance: No Vital Signs: 09/20/24 11:28 09/20/24 12:00 09/20/24 13:01 Temperature 98.1 F Temperature Source Oral Pulse Rate 89 90 Pulse Rate [Left] 89 Respiratory Rate 16 Blood Pressure 133/58 L 160/78 H Blood Pressure [Right Arm] 141/70 H Blood Pressure Mean [Right Arm] 93 Blood Pressure Source [Right Arm] Automatic Cuff Blood Pressure Position [Right Arm] Sitting 02 Sat by Pulse Oximetry 95 95 94 L Oxygen Delivery Method Room Air Room Air 09/20/24 13:30 09/20/24 14:00 09/20/24 14:30 Temperature Temperature Source Pulse Rate 89 90 89 Pulse Rate [Left] Respiratory Rate Blood Pressure 166/86 H 145/69 H 161/71 H Blood Pressure [Right Arm] Blood Pressure Mean [Right Arm] Blood Pressure Source [Right Arm] Blood Pressure Position [Right Arm] 02 Sat by Pulse Oximetry 97 93 L 94 L Oxygen Delivery Method Room Air Room Air Room Air 09/20/24 15:01 Temperature Temperature Source Pulse Rate 98 H Pulse Rate [Left] Respiratory Rate Blood Pressure 120/64 Blood Pressure [Right Arm] Blood Pressure Mean [Right Arm] Blood Pressure Source [Right Arm] Blood Pressure Position [Right Arm] 02 Sat by Pulse Oximetry 94 L Oxygen Delivery Method Room Air Lab Data Lab Results 09/20/24 11:40: WBC 13.1 H, RBC 3.55 L, Hgb 10.4 L, Hct 31.0 L, MCV 87.3, MCH 29.3, MCHC 33.5, RDW 14.0, Plt Count 510 H, MPV 8.1, Neut % (Auto) 87.1 H, Lymph % (Auto) 8.6 L, Dixon % (Auto) 2.6, Eos % (Auto) 0.6, Baso % (Auto) 0.5, Neut # (Auto) 11.4 H, Lymph # (Auto) 1.1, Dixon # (Auto) 0.3, Eos # (Auto) 0.1, Baso # (Auto) 0.1, Sodium 137, Potassium 4.3, Chloride 100, Carbon Dioxide 24, Anion Gap 17.3 H, BUN 25 H, Creatinine 1.30 H, Estimated Creat Clear 48, Estimated GFR 40 L, Est GFR ( Amer) 49 L, Glucose 154 H, Calcium 9.9, Magnesium 1.6, Total Bilirubin 0.7, AST 30, ALT 16, Alkaline Phosphatase 118, Troponin I < 0.01, Total Protein 8.1, Albumin 4.2, Globulin 3.9 H, Albumin/Globulin Ratio 1.1 09/20/24 11:52: Urine Color Yellow 09/20/24 11:52: Urine Color Yellow, Urine Appearance Cloudy 09/20/24 11:52: Urine Appearance Cloudy, Urine pH 5.5 09/20/24 11:52: Urine pH 6.0, Ur Specific Randolph >= 1.030 09/20/24 11:52: Ur Specific Randolph 1.025, Urine Protein 2+ A 09/20/24 11:52: Urine Protein 2+ A, Urine Glucose (UA) Negative 09/20/24 11:52: Urine Glucose (UA) Negative, Urine Ketones Negative 09/20/24 11:52: Urine Ketones Negative, Urine Blood 3+ A 09/20/24 11:52: Urine Blood 3+ A, Urine Nitrate Negative 09/20/24 11:52: Urine Nitrate Negative, Urine Bilirubin Negative 09/20/24 11:52: Urine Bilirubin Negative, Urine Urobilinogen 0.2 09/20/24 11:52: Urine Urobilinogen 0.2, Ur Leukocyte Esterase 2+ A 09/20/24 11:52: Ur Leukocyte Esterase 2+ A, Urine RBC 20-50 09/20/24 11:52: Urine RBC 20-50, Urine WBC 5-10 09/20/24 11:52: Urine WBC 10-20, Ur Squamous Epith Cells None 09/20/24 11:52: Ur Squamous Epith Cells None, Urine Bacteria Trace 09/20/24 11:52: Urine Bacteria Trace, Fine Granular Casts Occasional 09/20/24 11:40 09/20/24 11:40 Orders (Tests/Meds): ED MEDICATIONS Discontinued Medications Generic Name Dose Route Start Last Admin Trade Name Freq PRN Reason Stop Dose Admin Iopamidol 160 ml 09/20/24 12:32 09/20/24 12:38 Iopamidol-370 (76%);100ml Bottle IV 09/20/24 12:33 160 ml ONCE ONE Administration Ondansetron HCl 4 mg 09/20/24 13:55 09/20/24 14:06 Ondansetron 4mg/2ml Vial IV 09/20/24 13:56 4 mg ONCE ONE Administration Sodium Chloride 50 ml 09/20/24 12:32 09/20/24 12:38 0.9 % Sodium Chloride 50 Ml Vial IV 09/20/24 12:33 50 ml ONCE ONE Administration Sodium Chloride 10 ml 09/20/24 12:32 09/20/24 12:38 Sodium Chloride 0.9% 10ml Syr (Rad Only) IV 09/20/24 12:33 10 ml ONCE ONE Administration ORDERS Category Date Time Status CT abdomen pelvis w con Stat Cat Scan 09/20/24 11:[address] angio chest PE protocol Stat Cat Scan 09/20/24 11:[address] angio head Stat Cat Scan 09/20/24 11:[address] angio neck Stat Cat Scan 09/20/24 11:[address] head/brain wo con Stat Cat Scan 09/20/24 11:35 Completed CBC w/Auto Diff [Complete Blood Count Auto Diff] Stat Lab 09/20/24 11:40 Completed CMP [Comprehensive Metabolic Panel] Stat Lab 09/20/24 11:40 Completed MG [Magnesium] Stat Lab 09/20/24 11:40 Completed Trop I [Troponin I] Stat Lab 09/20/24 11:40 Completed Troponin I Q3H Lab 09/20/24 18:00 Ordered UA [Urinalysis and Microscopic] Stat Lab 09/20/24 11:52 Completed UA [Urinalysis and Microscopic] Stat Lab 09/20/24 11:52 Completed Blood Culture Stat Micro 09/20/24 15:09 Ordered Urine Culture Stat Micro 09/20/24 11:52 Received Urine Culture Stat Micro 09/20/24 11:52 Received ECG Data Tracing #1: Independently interpreted by me rate is 91, rhythm is regular, axis is normal, no ST elevation in anatomical contiguous leads, QTc 432 Medical Decision Narrative: In theIn summary patient is a 69-year-old female with past medical history described above who presents emergency department for evaluation of dizziness of urologic cancer that is not currently undergoing treatment and recent bilateral nephrostomy tube placement. Patient is hemodynamically stable and nontoxic- appearing upon arrival, afebrile. Nonfocal neurologic exam. EKG normal sinus rhythm persistent Q waves in the septal leads no dynamic changes. Differential diagnosis includes metastatic disease, metabolic derangement, intracranial mass, CVA, among others. Workup will be conducted with hematologic labs, a urinalysis from each nephrostomy tube, EKG, noncontrasted CT scan of the head CTA of the head and neck CT pulmonary embolism protocol of the chest CT abdomen pelvis with IV contrast. Initial workup reviewed by me, no significant leukocytosis, no actionable anemia, improved from prior, no VINCENZO or critical electrolyte abnormality, initial troponin undetectably low. Patient has 10-20 white blood cells, trace bacteria, 20-50 red blood cells and 2+ leuk esterase nitrate negative in the right nephrostomy tube. CT imaging survey shows bilateral nephrostomy tubes and a right internal ureteral stent with mass on the bladder base noted with a new lesion on the dome of the liver compared to prior exam favoring metastasis, there is interval development of pulmonary metastasis and presumed metastatic adenopathy, CTA head neck nonactionable no acute intracranial abnormality on Noncon although MRI would be needed to see for definitive metastasis. For questionable urinary tract infection ceftriaxone will be administered, blood cultures will be drawn and we will contact [facility] for possible transfer given that she is unsteady on her feet cannot complete her activities of daily living, we have no MRI machine here and she is interested in pursuing maximal medical therapy for her cancer. The case discussed with [facility] Dr. Martini who graciously excepted patient for transfer to [facility] for continued valuation at this time. Critical Care Critical Care Time Critical Care Time: No
[2024-09-20 11:48] LABS: Basophils # 0.1 K/mm3 (0-0.2); Basophils % 0.5 % (0.1-2.0); Eosinophils # 0.1 K/mm3 (0.0-0.4); Eosinophils % 0.6 % (0.1-12.0); Hemoglobin 10.4 g/dL (12.2-16.2); Lymphocytes # 1.1 K/mm3 (0.7-4.5); Lymphocytes % 8.6 % (10-50); Mean Corpuscular HGB Conc 33.5 g/dL (31.8-35.4); Mean Corpuscular Hemoglobin 29.3 pg (27.0-31.2); Mean Corpuscular Volume 87.3 fl (81-99); Mean Platelet Volume 8.1 fl (7.4-10.4); Monocytes # 0.3 K/mm3 (0.1-1.0); Monocytes % 2.6 % (1.7-9.3); Neutrophils # 11.4 K/mm3 (1.8-7.8); Neutrophils % 87.1 % (37.0-80.0); Nucleated Red Blood Cells # 0 10^3/uL; Nucleated Red Blood Cells % 0 %; Platelet Count 510 K/mm3 (142-424); Red Blood Count 3.55 M/mm3 (4.20-5.40); Red Cell Distribution Width-SD 44.8 fL; White Blood Count 13.1 K/mm3 (4.8-10.8)
--- OUTSIDE RECORDS SUMMARY | 2024-09-20 11:57 | XMS_ITS ---
Author Organization Unknown Vital Signs BpStanding BpSitting BpSupine Date Temperature HeartRate Weight Hei ght Spo2 Respiration Bmi HeadCircumference FieldCount TimeRecorded NeckCircumferen ce WaistCircumference Pulse 140/74 09/02 00:00 :00 97.8 105 174,0 5,2 31.8 2 6 13:45 110/72 08/06 00:00 :00 98.0 103 163,6.4 0 5,2 29.8 8 6 10:30 154/80 06/13 00:00 :00 97.9 77 168,9.6 0 5,2 30.8 3 6 11:00 122/72 05/17 00:00 :00 97.9 90 168,0 5,2 30.7 2 6 15:15 116/70 04/10 00:00 :00 98.0 81 165,12. 80 5,2 30.3 2 6 09:15 120/70 01/09 00:00 :00 98.0 90 171,9.6 0 5,2 31.3 8 6 10:15 112/60 10/16 00:00 :00 98.2 92 173,9.6 0 5,2 31.7 5 6 10:45 140/74 09/25 00:00 :00 97.8 80 170,3.2 0 5,2 31.1 3 6 11:45 170/70 09/04 00:00 :00 98.1 100 171,12. 80 5,2 31.4 2 6 10:45 160/74 07/21 00:00 :00 98.4 85 173,0 5,2 31.6 4 6 13:45 120/70 01/03 00:00 :00 98.4 88 172,12. 80 5,2 31.6 0 6 10:30 140/86 11/04 00:00 :00 98.0 64 171,9.6 0 5,2 31.3 8 6 10:30 142/80 07/15 00:00 :00 98.3 105 170,0 5,2 31.0 9 6 11:15
[2024-09-20 11:59] LABS: Albumin Level 4.2 g/dl (3.5-5.0); Chloride 100 mmol/L (98-107); Potassium 4.3 mmoL/L (3.5-5.1); Sodium 137 mmol/L (136-145)
[2024-09-20 12:01] LABS: Blood Urea Nitrogen 25 mg/dl (7-17); Estimated Glomerular Filt Rate 40 ml/min (>60); GFR (African American) 49 ML/MIN (>60)
[2024-09-20 12:02] LABS: Alanine Aminotransferase 16 U/L (12-78); Albumin/Globulin Ratio 1.1 (1.1-1.8); Alkaline Phosphatase 118 U/L (38-126); Anion Gap 17.3 mEq/L (5-15); Aspartate Amino Transferase 30 U/L (14-36); Bilirubin,Total 0.7 mg/dl (0.2-1.3); Calcium 9.9 mg/dl (8.4-10.2); Carbon Dioxide 24 mmol/L (22.0-30.0); Globulin 3.9 g/dL (1.3-3.2); Glucose 154 mg/dl (74-100); Magnesium 1.6 mg/dl (1.6-2.3); Total Protein,Serum 8.1 g/dl (6.3-8.2)
[2024-09-20 12:04] LABS: Microscopic, Urine URINE MICROSCOPIC (MICROSCOPIC)
[2024-09-20 12:09] LABS: Appearance,Urine CLOUDY (Clear); Bilirubin,Urine Negative (Negative); Blood, Urine 3+ (Negative); Color,Urine YELLOW (Yellow); Glucose,Urine (UA) Negative (Negative); Ketones,Urine Negative (Negative); Leukocyte Esterase,Urine 2+ (Negative); Nitrate,Urine Negative (Negative); PH,Urine 5.5 (5.0-8.5); Protein,Urine 2+ (Negative); Specific Gravity, Urine >= 1.030 (1.005-1.030); Urobilinogen,Urine 0.2 EU/dl (0.2)
[2024-09-20 12:10] LABS: Appearance,Urine CLOUDY (Clear); Bilirubin,Urine Negative (Negative); Blood, Urine 3+ (Negative); Color,Urine YELLOW (Yellow); Glucose,Urine (UA) Negative (Negative); Ketones,Urine Negative (Negative); Leukocyte Esterase,Urine 2+ (Negative); Nitrate,Urine Negative (Negative); Protein,Urine 2+ (Negative); Specific Gravity, Urine 1.025 (1.005-1.030); Urobilinogen,Urine 0.2 EU/dl (0.2)
[2024-09-20 12:13] LABS: Creatinine Clearance Estimated 48 mL/min (50-200)
[2024-09-20 12:20] LABS: Troponin I < 0.01 ng/ml (0.00-0.034)
[2024-09-20 12:28] LABS: Bacteria,Urine Trace /lpf
[2024-09-20 12:29] LABS: Fine Granular Casts,Urine Occasional #/lpf (0); RBC,Urine 20-50 #/hpf (0-3)
[2024-09-20 12:30] LABS: Bacteria,Urine Trace /lpf; RBC,Urine 20-50 #/hpf (0-3)
[2024-09-20] MEDS: SODIUM CHLORIDE 0.9% 10ML SYR (RAD ONLY) 10 ML IV (12:38)
[2024-09-20] MEDS: 0.9 % SODIUM CHLORIDE 50 ML VIAL IV (12:38)
[2024-09-20] MEDS: IOPAMIDOL-370 (76%);100ML BOTTLE 160 ML IV (12:38)
[2024-09-20] MEDS: ONDANSETRON 4MG/2ML VIAL 4 MG IV (14:06)
--- NOTE | 2024-09-20 15:07 | PC.NURSE ---
CALLING FOR TRANSFER REGARDING METASTATIC CANCER PER DR. COLEMAN
--- NOTE | 2024-09-20 15:56 | PC.NURSE ---
I called report to Naomy MOJICA at .
[2024-09-20] MEDS: CEFTRIAXONE 1 GM 1 GM in 0.9 % SODIUM CHLORIDE 50 ML IV (16:01)
== END 2024-09-20 17:52 | disposition short-term general hospital (02) ==
PROVIDERS: Emergency Provider Emergency Medicine; PCP Family Medicine
DX: N39.0 Urinary tract infection, site not specified (principal); R42 Dizziness and giddiness
CPT/HCPCS: 70450; 70496; 70498; 71275; 74177; 80053; 81001; 83735; 84484; 85025; 87040; 87086; 87088; 93005; 96374; 99285; J0696; J2405; Q9967

== ENCOUNTER 2024-10-10 08:43 | Outpatient (CLI) | payer MEDICARE, SELFPAY ==
[2024-10-10 08:47] VITALS: BMI 29.8
[2024-10-10 09:16] LABS: Basophils # 0.1 K/mm3 (0-0.2); Basophils % 0.7 % (0.1-2.0); Eosinophils # 0.2 Kmm3 (0.0-0.4); Eosinophils % 2.1 % (0.1-12.0); Hematocrit 25.3 % (37.0-47.0); Hemoglobin 8.3 g/dL (12.2-16.2); Lymphocytes # 1.6 K/mm3 (0.7-4.5); Lymphocytes % 15.3 % (10-50); Mean Corpuscular HGB Conc 32.8 g/dL (31.8-35.4); Mean Corpuscular Hemoglobin 28.7 pg (27.0-31.2); Mean Corpuscular Volume 87.5 fl (81-99); Mean Platelet Volume 8.2 fl (7.4-10.4); Monocytes # 0.9 K/mm3 (0.1-1.0); Monocytes % 8.8 % (1.7-9.3); Neutrophils # 7.6 K/mm3 (1.8-7.8); Neutrophils % 71.6 % (37.0-80.0); Nucleated Red Blood Cells # 0 10^3/uL; Nucleated Red Blood Cells % 0 %; Platelet Count 468 K/mm3 (142-424); Red Blood Count 2.89 M/mm3 (4.20-5.40); Red Cell Distribution Width 15.6 % (11.5-17.5); Red Cell Distribution Width-SD 50.1 fL; White Blood Count 10.6 K/mm3 (4.8-10.8)
[2024-10-10 09:21] LABS: Chloride 102 mmol/L (98-107)
[2024-10-10 09:22] LABS: Potassium 3.7 mmoL/L (3.5-5.1); Sodium 135 mmol/L (136-145)
[2024-10-10 09:24] LABS: Blood Urea Nitrogen 24 mg/dl (7-17); Creatinine Clearance Estimated 51 mL/min (50-200); Estimated Glomerular Filt Rate 44 ml/min (>60); GFR (African American) 54 ML/MIN (>60)
[2024-10-10 09:25] LABS: Alanine Aminotransferase 18 U/L (12-78); Albumin/Globulin Ratio 1.3 (1.1-1.8); Alkaline Phosphatase 103 U/L (38-126); Anion Gap 13.7 mEq/L (5-15); Aspartate Amino Transferase 39 U/L (14-36); Bilirubin,Total 0.6 mg/dl (0.2-1.3); Calcium 9.6 mg/dl (8.4-10.2); Carbon Dioxide 23 mmol/L (22.0-30.0); Globulin 3.2 g/dL (1.3-3.2); Glucose 127 mg/dl (74-100); Total Protein,Serum 7.2 g/dl (6.3-8.2)
[2024-10-10] MEDS: PROCHLORPERAZINE 10MG TABLET 10 MG PO (09:44)
[2024-10-10] MEDS: SODIUM CHLORIDE 0.9% 100ML BAG 100 ML IV (09:44)
[2024-10-10] MEDS: ENFORTUMAB VEDOTIN EJFV IV (10:10)
[2024-10-10] MEDS: SODIUM CHLORIDE 0.9% IV (10:10)
[2024-10-10 10:15] VITALS: BP 109/66; PULSE 94; RESP 17; O2SAT 95
[2024-10-10 10:30] VITALS: BP 116/65; PULSE 92; RESP 17
[2024-10-10 10:45] VITALS: BP 123/59; PULSE 90; RESP 17
[2024-10-10] MEDS: PEMBROLIZUMAB 200 MG in 0.9 % SODIUM CHLORIDE 50 ML 116 MG IV (10:48)
[2024-10-10 11:00] VITALS: BP 134/70; PULSE 91; RESP 16
[2024-10-10 11:15] VITALS: BP 121/63; PULSE 90; RESP 16
[2024-10-10 11:30] VITALS: BP 133/64; PULSE 90; RESP 16
[2024-10-11 14:12] LABS: Adrenocorticotropic Hormone 19.4 pg/mL (7.2-63.3)
--- NOTE | 2024-10-14 13:15 | PC.NURSE ---
1315-called to check on patient post first dose of keytruda and enfortumab; pt states she had a rough weekend with nausea and vomiting, pt states medications helped and she feels better today.
== END 2024-10-10 11:43 | disposition home or self-care (01) ==
LOC: INF 08:44
PROVIDERS: PCP Family Medicine; Visit Provider Internal Medicine Medical Oncology
DX: Z51.11 Encounter for antineoplastic chemotherapy (principal); C67.9 Malignant neoplasm of bladder, unspecified
CPT/HCPCS: 80053; 82024; 82533; 84443; 85025; 96413; 96417; J9177; J9271; Q0164

== ENCOUNTER 2024-10-17 08:44 | Outpatient (CLI) | payer MEDICARE, SELFPAY ==
[2024-10-17 08:45] VITALS: BMI 29.8
[2024-10-17 08:57] LABS: Basophils % 0.1 % (0.1-2.0); Eosinophils # 0.2 Kmm3 (0.0-0.4); Eosinophils % 1.3 % (0.1-12.0); Hematocrit 28.9 % (37.0-47.0); Hemoglobin 9.5 g/dL (12.2-16.2); Immature Granulocytes # 0.29 10^3uL; Lymphocytes # 1.8 K/mm3 (0.7-4.5); Lymphocytes % 12.3 % (10-50); Mean Corpuscular HGB Conc 32.9 g/dL (31.8-35.4); Mean Corpuscular Hemoglobin 28.4 pg (27.0-31.2); Mean Corpuscular Volume 86.3 fl (81-99); Mean Platelet Volume 8.2 fl (7.4-10.4); Monocytes # 0.8 K/mm3 (0.1-1.0); Monocytes % 5.4 % (1.7-9.3); Neutrophils # 11.5 K/mm3 (1.8-7.8); Neutrophils % 78.9 % (37.0-80.0); Nucleated Red Blood Cells # 0.02 10^3/uL; Nucleated Red Blood Cells % 0.1 %; Platelet Count 555 K/mm3 (142-424); Red Blood Count 3.35 M/mm3 (4.20-5.40); Red Cell Distribution Width 15.6 % (11.5-17.5); Red Cell Distribution Width-SD 48.4 fL; White Blood Count 14.6 K/mm3 (4.8-10.8)
[2024-10-17 09:08] LABS: Alanine Aminotransferase 16 U/L (12-78); Albumin Level 3.8 g/dl (3.5-5.0); Albumin/Globulin Ratio 1.2 (1.1-1.8); Alkaline Phosphatase 102 U/L (38-126); Anion Gap 8.7 mEq/L (5-15); Aspartate Amino Transferase 28 U/L (14-36); Bilirubin,Total 0.9 mg/dl (0.2-1.3); Blood Urea Nitrogen 25 mg/dl (7-17); Calcium 9.8 mg/dl (8.4-10.2); Carbon Dioxide 26 mmol/L (22.0-30.0); Chloride 102 mmol/L (98-107); Creatinine Clearance Estimated 61 mL/min (50-200); Estimated Glomerular Filt Rate 62 ml/min (>60); GFR (African American) 75 ML/MIN (>60); Globulin 3.2 g/dL (1.3-3.2); Glucose 128 mg/dl (74-100); Potassium 3.7 mmoL/L (3.5-5.1); Sodium 133 mmol/L (136-145)
[2024-10-17 09:34] LABS: Microscopic, Urine URINE MICROSCOPIC (MICROSCOPIC)
[2024-10-17 09:36] LABS: Appearance,Urine CLEAR (Clear); Bilirubin,Urine Negative (Negative); Blood, Urine 2+ (Negative); Color,Urine YELLOW (Yellow); Glucose,Urine (UA) Negative (Negative); Ketones,Urine Negative (Negative); Leukocyte Esterase,Urine TRACE (Negative); Nitrate,Urine Negative (Negative); Protein,Urine 2+ (Negative); Specific Gravity, Urine >= 1.030 (1.005-1.030); Urobilinogen,Urine 0.2 EU/dl (0.2)
[2024-10-17 09:38] LABS: Thyroid Stimulating Hormone 0.74 uIU/mL (0.465-4.68)
[2024-10-17 09:44] LABS: Amorphous Sediment,Urine 2+ /lpf; Bacteria,Urine 1+ /lpf
[2024-10-17] MEDS: PROCHLORPERAZINE 10MG TABLET 10 MG PO (10:14)
--- NOTE | 2024-10-17 10:15 | PC.NURSE ---
1015-gave premed at this time; compazine 10mg po; will wait 30mins prior to starting treatment
[2024-10-17] MEDS: SODIUM CHLORIDE 0.9% IV (10:42)
[2024-10-17] MEDS: ENFORTUMAB VEDOTIN EJFV IV (10:42)
[2024-10-17 10:48] VITALS: BP 117/62; PULSE 93; RESP 18; O2SAT 94
[2024-10-17 11:05] VITALS: BP 139/58; PULSE 90; RESP 18; O2SAT 94
[2024-10-17 11:20] VITALS: BP 159/76; PULSE 88; RESP 18
[2024-10-17 11:30] VITALS: BP 116/61; PULSE 92; RESP 18; O2SAT 94
== END 2024-10-17 11:30 | disposition home or self-care (01) ==
LOC: INF 08:45
PROVIDERS: PCP Family Medicine; Visit Provider Internal Medicine Medical Oncology
DX: Z51.11 Encounter for antineoplastic chemotherapy (principal); C67.9 Malignant neoplasm of bladder, unspecified
CPT/HCPCS: 80053; 81001; 84443; 85025; 96413; J9177; Q0164

== ENCOUNTER 2024-10-31 08:51 | Outpatient (CLI) | payer MEDICARE, SELFPAY ==
[2024-10-31 08:57] VITALS: BMI 29.8
[2024-10-31 09:18] LABS: Basophils % 0.6 % (0.1-2.0); Eosinophils # 0.1 Kmm3 (0.0-0.4); Eosinophils % 1.1 % (0.1-12.0); Hematocrit 27.3 % (37.0-47.0); Hemoglobin 8.9 g/dL (12.2-16.2); Immature Granulocytes # 0.05 10^3uL; Immature Granulocytes % 0.7 %; Lymphocytes # 1.6 K/mm3 (0.7-4.5); Lymphocytes % 22.5 % (10-50); Mean Corpuscular HGB Conc 32.6 g/dL (31.8-35.4); Mean Corpuscular Volume 85.8 fl (81-99); Mean Platelet Volume 8.3 fl (7.4-10.4); Monocytes # 0.4 K/mm3 (0.1-1.0); Monocytes % 6.2 % (1.7-9.3); Neutrophils # 4.9 K/mm3 (1.8-7.8); Neutrophils % 68.9 % (37.0-80.0); Nucleated Red Blood Cells # 0 10^3/uL; Nucleated Red Blood Cells % 0 %; Platelet Count 414 K/mm3 (142-424); Red Blood Count 3.18 M/mm3 (4.20-5.40); Red Cell Distribution Width 18.3 % (11.5-17.5); Red Cell Distribution Width-SD 53.8 fL; White Blood Count 7.1 K/mm3 (4.8-10.8)
[2024-10-31 09:34] LABS: Alanine Aminotransferase 29 U/L (12-78); Albumin Level 3.6 g/dl (3.5-5.0); Albumin/Globulin Ratio 1.3 (1.1-1.8); Alkaline Phosphatase 108 U/L (38-126); Anion Gap 9.4 mEq/L (5-15); Aspartate Amino Transferase 39 U/L (14-36); Blood Urea Nitrogen 13 mg/dl (7-17); Calcium 8.8 mg/dl (8.4-10.2); Carbon Dioxide 26 mmol/L (22.0-30.0); Chloride 102 mmol/L (98-107); Creatinine Clearance Estimated 61 mL/min (50-200); Estimated Glomerular Filt Rate 62 ml/min (>60); GFR (African American) 75 ML/MIN (>60); Globulin 2.7 g/dL (1.3-3.2); Glucose 146 mg/dl (74-100); Potassium 3.4 mmoL/L (3.5-5.1); Sodium 134 mmol/L (136-145); Total Protein,Serum 6.3 g/dl (6.3-8.2)
[2024-10-31 10:07] LABS: Thyroid Stimulating Hormone 0.66 uIU/mL (0.465-4.68)
[2024-10-31] MEDS: PROCHLORPERAZINE 10MG TABLET 10 MG PO (10:21)
[2024-10-31] MEDS: SODIUM CHLORIDE 0.9% IV (10:49)
[2024-10-31] MEDS: ENFORTUMAB VEDOTIN EJFV IV (10:49)
[2024-10-31 10:55] VITALS: BP 131/67; PULSE 68; RESP 18; TEMP 36.7; O2SAT 100
[2024-10-31 11:25] VITALS: BP 133/71; PULSE 70
[2024-10-31] MEDS: PEMBROLIZUMAB 200 MG in 0.9 % SODIUM CHLORIDE 50 ML 116 MG IV (11:29)
[2024-10-31 11:35] VITALS: BP 138/70; PULSE 71
[2024-10-31 12:15] VITALS: BP 146/68; PULSE 73
--- NOTE | 2024-10-31 12:30 | XR_ITS ---
FINAL REPORT CLINICAL HISTORY: bladder cancer COMPARISON: None FINDINGS: LEFT HIP: Two views of the left hip with an AP view of the pelvis demonstrate a destructive bony lesion in the left inferior pubic ramus. No other lytic lesions identified. There is no evidence of fracture. The proximal femur is intact. The joint spaces appear normal. No soft tissue abnormality is seen. IMPRESSION: Destructive lesion medial left inferior pubic ramus highly suspicious for bony metastasis. No pathologic fracture identified. Reviewed, Interpreted and Dictated by Millie Alejandro MD Transcribed by Karolyn Lopez Authenticated and [facility]
[2024-11-01 13:19] LABS: Adrenocorticotropic Hormone 44.3 pg/mL (7.2-63.3)
== END 2024-10-31 12:20 | disposition home or self-care (01) ==
PROVIDERS: PCP Family Medicine; Visit Provider Internal Medicine Medical Oncology
DX: Z51.11 Encounter for antineoplastic chemotherapy (principal); C67.9 Malignant neoplasm of bladder, unspecified; C79.9 Secondary malignant neoplasm of unspecified site
CPT/HCPCS: 73502; 80053; 82024; 82533; 84443; 85025; 96413; 96417; J9177; J9271; Q0164

== ENCOUNTER 2024-11-07 09:09 | Outpatient (CLI) | payer MEDICARE, SELFPAY ==
[2024-11-07 09:11] VITALS: BMI 28.7
[2024-11-07 09:24] LABS: Basophils # 0.1 K/mm3 (0-0.2); Basophils % 1.1 % (0.1-2.0); Eosinophils # 0.2 Kmm3 (0.0-0.4); Eosinophils % 3.3 % (0.1-12.0); Hematocrit 29.2 % (37.0-47.0); Hemoglobin 9.4 g/dL (12.2-16.2); Immature Granulocytes # 0.03 10^3uL; Immature Granulocytes % 0.5 %; Lymphocytes # 1.7 K/mm3 (0.7-4.5); Lymphocytes % 27.3 % (10-50); Mean Corpuscular HGB Conc 32.2 g/dL (31.8-35.4); Mean Corpuscular Hemoglobin 28.1 pg (27.0-31.2); Mean Corpuscular Volume 87.2 fl (81-99); Monocytes # 0.5 K/mm3 (0.1-1.0); Monocytes % 7.9 % (1.7-9.3); Neutrophils # 3.8 K/mm3 (1.8-7.8); Neutrophils % 59.9 % (37.0-80.0); Nucleated Red Blood Cells # 0.03 10^3/uL; Nucleated Red Blood Cells % 0.5 %; Platelet Count 398 K/mm3 (142-424); Red Blood Count 3.35 M/mm3 (4.20-5.40); Red Cell Distribution Width 19.1 % (11.5-17.5); Red Cell Distribution Width-SD 58.8 fL; White Blood Count 6.3 K/mm3 (4.8-10.8)
[2024-11-07 09:34] LABS: Alanine Aminotransferase 18 U/L (12-78); Albumin Level 3.6 g/dl (3.5-5.0); Albumin/Globulin Ratio 1.3 (1.1-1.8); Alkaline Phosphatase 91 U/L (38-126); Anion Gap 9.5 mEq/L (5-15); Aspartate Amino Transferase 34 U/L (14-36); Bilirubin,Total 1.1 mg/dl (0.2-1.3); Blood Urea Nitrogen 19 mg/dl (7-17); Carbon Dioxide 28 mmol/L (22.0-30.0); Chloride 102 mmol/L (98-107); Creatinine Clearance Estimated 59 mL/min (50-200); Estimated Glomerular Filt Rate 55 ml/min (>60); GFR (African American) 66 ML/MIN (>60); Globulin 2.8 g/dL (1.3-3.2); Glucose 208 mg/dl (74-100); Potassium 3.5 mmoL/L (3.5-5.1); Sodium 136 mmol/L (136-145); Total Protein,Serum 6.4 g/dl (6.3-8.2)
[2024-11-07] MEDS: PROCHLORPERAZINE 10MG TABLET 10 MG PO (09:42)
[2024-11-07 10:05] LABS: Thyroid Stimulating Hormone 0.86 uIU/mL (0.465-4.68)
[2024-11-07] MEDS: SODIUM CHLORIDE 0.9% IV (10:10)
[2024-11-07] MEDS: ENFORTUMAB VEDOTIN EJFV IV (10:10)
[2024-11-07 10:20] VITALS: BP 112/68; PULSE 69; RESP 18; TEMP 36.7; O2SAT 100
[2024-11-07 10:50] VITALS: BP 121/69; PULSE 71
[2024-11-07] MEDS: SODIUM CHLORIDE 0.9% 10ML FLUSH SYRINGE 10 ML IV (11:00)
[2024-11-07] MEDS: SODIUM CHLORIDE 0.9% 50ML BAG 50 ML IV (11:00)
== END 2024-11-07 11:10 | disposition home or self-care (01) ==
LOC: INF 09:10
PROVIDERS: PCP Family Medicine; Visit Provider Internal Medicine Medical Oncology
DX: Z51.11 Encounter for antineoplastic chemotherapy (principal); C67.9 Malignant neoplasm of bladder, unspecified
CPT/HCPCS: 80053; 84443; 85025; 96413; J9177; Q0164

== ENCOUNTER 2024-11-21 09:16 | Outpatient (CLI) | payer MEDICARE, SELFPAY ==
--- OUTSIDE RECORDS SUMMARY | 2024-09-17 06:15 | XMS_ITS ---
Author Organization [facility] Address [address] [facility] [address] [facility] [address] [place] [id number] Care Team Providers Care Telegraph And Teletype Operator Name Role Phone Nikki Sevilla Primary Care Provider Luis Hatfield [phone] REASON FOR VISIT 6 week f/u Encounters Encounter Location Date Provider Diagnosis [facility] [address] [place], [place] [phone] 09/17/2024 Luis Hatfield Plan Of Treatment Next Appt Details Provider Name:Luis eHrnández ry, 01/30/2025 09:30:00 AM, [address], [address], [place], [place], [phone], Progress Notes * Leandro PRITCHARDOB:[birth year] (69 yo F)Acc No.[id number]:09/17/2024 Progress Notes Patient: Sergei TREJOestine Provider: Clay Hatfield M.D. :1955 A ge:69 Y S ex:Female Date:09/17/2024 Address:[address] [place] [address] [place] [id number] Pcp:Nikki Sevilla Subjective: * Chief Complaints: * 1 . 6 week f/u. * Medical History: Objective: * Vitals: Assessment: Plan: * Treatment: * Billing Information: * Visit Code: * Procedure Codes: * Electronic signature of Vicky Hatfield MD on 11/21/2024 at 09:34 AM EDT Sign off status: Pending * Provider: Clay Hatfield M.D. Date: 0 09/17/2024 Generated for Gonzales jaquez/Joyce/Gonzalez on: 0 11/21/2024 09:34 AM EDT
--- OUTSIDE RECORDS SUMMARY | 2024-09-20 20:53 | XMS_ITS | Encounter Summary ---
Author Organization [facility] Address [address] [id number] Care Team Providers Care Financial Management Name Role Phone Luis Hatfield MD Primary Care Provider [phone] Reason for Referral * Home Health (Routine) - Authorized Specialty Diagnoses / Procedures Referred By Stephen parks Referred To Contact Home Health Services Diagnoses Acute cystitis with hematuria Eleanor Morales MD [address] [place] [address] Phone: tel: fax: Referral ID Status Reason Start Date Expiration Date Visits Requested Visits Authorized [id number] Authorized Specialty Services Required 09/23/2024 03/25/2026 999 999 Reason for Visit * Reason Comments Urinary Problem * Auth/Cert (Routine) Specialty Diagnoses / Procedures Referred By Stephen parsk Referred To Contact Diagnoses Urinary tract infection dizziness/vomiting; metastatic disease Lorena Woodall MD [address] [place] [address] Phone: tel: fax: [facility] A Inpatient [facility] [address] [place] [address] Phone: tel: Referral ID Status Reason Start Date Expiration Date Visits Re quested Visits Authorized [id number] 1 1 Encounter Details Date Type Department Care Team (Latest Contact Info) Description 09/20/2024 8:53 PM EDT - 09/23/2024 3:28 PM EDT Hospital Encounter PAV A Inpatient [facility] [address] [place] [address] Coty Walden MD [address] [place] [address] Tobias Love MD [address] [place] [address] Lorena Woodall MD [address] [place] [address] Eleanor Morales MD [address] [place] [address] Acute cystitis with hematuria (Primary Dx) Discharge Disposition: Home or Self Care Social History Tobacco Use Types Packs/Day Years Used Date Smoking Tobacco: Every Day Cigarettes 0.1 51.4 Started: 1974 Smokeless Tobacco: Never Alcohol Use Standard Drinks/Week Comments Never 0 (1 standard drink = 0.6 oz pur e alcohol) Humiliation, Afraid, Rape, and Kick questionnair e Answer Date Recorded Within the last year, have y ou been afraid of your partner or ex-partner? No 09/23/2024 Within the last year, have y ou been humiliated or emotionally abused in other ways by your partner or ex-partner? No Within the last year, have y ou been kicked, hit, slapped, or otherwise physically hurt by your partner or ex-partner? No 09/23/2024 Within the last year, have y ou been raped or forced to have any kind of sexual activity by your partner or ex-partner? No 09/23/2024 PHQ-2 Answer Date Recorded Patient Health Questionnaire-2 Score 0 08/14/2024 Hunger Vital Sign Answer Date Recorded Within the past 12 months, y ou worried that your food would run out before you got the money to buy more. Never true 09/24/19 25 Within the past 12 months, t he food you bought just didn't last and you didn't have money to get more. Never true 09/23/2024 PRAPARE - Transportation Answer Date Re corded In the past 12 months, has l ack of transportation kept you from medical appointments or from getting medications? No 09/10 In the past 12 months, has l ack of transportation kept you from meetings, work, or from getting things needed for daily living? No 09/23/2024 PHQ-9 Answer Date Recorded Patient Health Questionnaire-9 Score 0 08/14/2024 Housing Stability Vital Sign Answer Sigifredo e Recorded In the last 12 months, was t here a time when you were not able to pay the mortgage or rent on time? No 09/23/2024 In the past 12 months, how m any times have you moved where you were living? 0 09/23/2024 At any time in the past 12 m [facility], were you homeless or living in a alf (including now)? No 09/23/2024 CAGE ASSESSMENT Answer Date Recorded Cage unable to access Not on file 09/11/2024 Cage max number of drinks Not on file 2024 Cage Beverages a week Not on file 09/11/2024 Have you ever felt you should CUT down on your d rinking? 0 09/11/2024 Have you been ANNOYED by people criticizing your drinking? 0 09/11/2024 Have you felt GUILTY about your drinking? 0 09/11/2024 Have you had a drink first t kimberlyn in the morning ([employer]) to steady your nerves or to get rid of a hangover? 0 09/11/2024 CAGE Questionnaire Score 0 025 Utilities Answer Date Recorded In the past 12 months has th e Relive, gas, oil, or water company threatened to shut off services in your home? No 09/23/2024 Comments No Sex and Gender Information Value Date Recorded Sex Assigned at Female 07/22/2024 7:36 PM EST Legal Sex Female 8:37 PM EDT Gender Identity Female 07/22/2024 11:10 PM EST Sexual Orientation Straight 07/22/2024 11 :10 PM EST documented as of this encounter Last Filed Vital Signs Vital Sign Reading Time Taken Comments Blood Pressure 124/78 09/23/2024 11:20 AM EDT Pulse 83 09/23/2024 11:20 AM EDT Temperature 36.6 C (97.9 F) 09/23/2024 11:20 AM EDT Respiratory Rate 16 09/23/2024 11:20 AM EDT Oxygen Saturation 95% 09/23/2024 11:20 AM EDT Inhaled Oxygen Concentration - - Weight 74.6 kg (164 lb 7.4 oz) 09/23/2024 7:39 A M EDT Height 157.5 cm (5' 2 ) 09/20/2024 9:04 PM EDT Body Mass Index 30.08 09/20/2024 9:04 PM EDT documented in this encounter Functional Status * Calculated C-SSRS Risk Score (Lifetime/Recent) Answer Date of Assessment Author No Risk Indicated 09/23/2024 8:00 AM EDT Dara Armendariz RN * Question Answer Date of Assessment Author 1. Wish to be (Past 1 Month) No 025 8:00 AM EDT Dara Armendariz RN 2. Non-Specific Active Suici shiraz Thoughts (Past 1 Month) No 09/23/2024 8:00 AM EDT Ynes Armendariz RN 6. Suicidal Behavior (Lifetime) No 8:00 AM EDT Dara Armendariz RN documented as of this encounter Medications at Time of Discharge dexamethasone (Decadron) 4 MG tablet Take 2 tablets by mouth in the morning and 2 tablets in the evening. Take with meals. For 3 days , starting day after Chemo , for 6 cycles . . hydroxychloroqui ne (Plaquenil) 200 MG tablet Take 1 tablet by mouth in the morning and 1 tablet before bedtime. irbesartan (Avapro) 300 MG tablet Take 1 tablet by mouth in the morning. multivitamin (Theragran) tablet Take 1 tablet by mouth in the morning. Probiotic Product (PROBIOTIC DAILY PO) Take 1 tablet by mouth in the morning. prochlorperazine (Compazine) 10 MG tablet Take 1 tablet by mouth every 6 hours as needed for nausea or vomiting. sodium chloride 0.9 % flush Infuse 10 mL into a venous catheter as needed for line care for up to 50 doses. Infuse as needed for percutaneous nephrostomy tube 500 mL 09/13/2024 Turmeric (QC TUMERIC COMPLEX PO) Take 1 tablet by mouth in the morning. Ferrous Sulfate (IRON PO) Take 1 tablet by mouth daily. rosuvastatin (Crestor) 40 MG tablet Take 1 tablet by mouth 1 time each day. 11/02/2023 Syringe, Disposable, (Syringe 2-3 ML) 3 ML misc 09/13/2024 buPROPion (Wellbutrin) 75 MG tablet Take 1 tablet by mouth in the morning and 1 tablet before bedtime. 5 rosuvastatin (Crestor) 40 MG tablet Take 1 tablet by mouth nightly. 5 sulfamethoxazole -trimethoprim (Bactrim DS) 800-160 MG tabletIndication s:Acute cystitis with hematuria Take 1 tablet by mouth in the morning and 1 tablet before bedtime. Do all this for 7 days. 14 tablet 09/23/2024 5 documented as of this encounter Miscellaneous Notes * Query Clarification Note - Eleanor Morales MD - 09/23/2024 3:28 PM EDT Physician Clarification Please clarify the relationship between these conditions: [x]Yes, Sepsis/UTI is likely related to / associated with / due to nephrostomy tubes []No, Sepsis/UTI is not likely related to / associated with / due to nephrostomy tubes. []Clinically unable to determine This documentation will become part of the patient's medical record. * Discharge Summary - Eleanor Morales MD - 09/23/2024 3:28 PM EDT Hospitalization Admit Date/Time: 09/20/2024 8:53 PM Admitting Attending: Lorena Woodall Discharge Date: 09/23/2024 Discharge Attending Physician: Eleanor Morales MD PCP name and Address: Luis Hatfield MD [address] [facility] [address] / [place] [address] Referring provider name and address: Mega Rodriguez MD [facility] [address] [id number] Chief Concern, Brief History of Present Illness, and Hospital Course 69 y.o. female with PMH as per above who presents with 1 day hx of dizziness, nausea, and vomiting.Admitted to hospital medicine for suspected UTI and concern for new metastatic disease iso known urothelial carcinoma of the bladder. This condition poses an acute threat to life/bodily function. Consulted urology and medical oncology for co managing this patient. #Sepsis 2/2 suspected UTI iso recent bilateral nephrostomy tube placement: - Presents with 1 day hx of dizziness, nausea, and vomiting. - Recently admitted 09/11/24-09/13/24 with bilateral hydronephrosis. Now s/p bilateral nephrostomy tubeplacement with IR (09/12) - Meets sepsis criteria upon arrival to [facility] on 09/20/24 (leukocytosis, tachycardia, tachypnea with suspected source of infection) - UA from right nephrostomy tube with moderate leukocytes, large blood, protein >300, and yeast,will request record from OSH for urine culture result - s/p rocephin x1 at OSH which was switched to zosyn x 7 days(given immunocompromised status, bilateral nephrostomy tubes, and recent hospitalization) and added Diflucan as showing yeast + on UA. Thepatient's urine culture was growing Staphylococcus coagulase negative, BC NGTD and Antibiotics de escalate to bactrim. The pt received diflucan for 2 days as urine culture was negative for yeast. Urology was consulted, no acute urological intervention, OP f/U with Dr. Ochoa Matias in 1 month forcysto/stent removal. She needs to start chemotherapy and have appoitment with oncologist already, so discharge on bactrim for 7 days. UTI vs colonization difficult to state as culture growing <10,000, CFU but will treat as UTI due to immunocompromised state, and recent procedure exposure. Her IRschedule also rescheduled with same day urologist appointment (10/09). The patient has enough drainsupplies and flushes at home, so did not order. #Concern for metastatic disease #High grade urothelial carcinoma of the bladder s/p transurethral resection and ureteral stent placement #Hx bilateral hydronephrosis s/p bilateral nephrostomy tube placement 09/12/24 - Recently diagnosed with high grade urothelial carcinoma of bladder 07/2024. S/p transurethral resection with urology 07/23/24. - Recent admission 09/11/24-09/13/24 for bilateral hydronephrosis. S/p bilateral nephrostomy tube placement on 09/12/24 with IR - Has not start chemo or radiation for cancer given kidney dysfunction - CT Chest and Abdomen at OSH read with concern for new pulmonary nodules and new metastatic lesionin dome of liver. Images personally reviewed showing bilateral ground glass opacities of lungs. PLAN: - Consulted heme/onc, no inpatient intervention, F/U with her regular oncologist Dr Henderson - The patient is discharged on Monday so that can start treatment on Monday #Normocytic Anemia iso known malignancy, improving - On admission, Hgb 10.1 with MCV 86, did not require any transfusion in hospital _continue Home PO Iron Chronic Medical Conditions: #HLD: continue home rosuvastatin #Tobacco use disorder: continue home bupropion. Patient declines nicotine replacement #SLE: Continue home hydroxychloroquine which was on hold in hospital HTN: Resolved: #Hypotension: Resolved - BP on admission 98/77, received fluid and BP stable till hospital discharge Surgeries and Procedures Medication List .. buPROPion 75 MG tablet Commonly known as: Wellbutrin Take 1 tablet by mouth in the morning and 1 tablet before bedtime. dexamethasone 4 MG tablet Commonly known as: Decadron Take 2 tablets by mouth in the morning and 2 tablets in the evening. Take with meals. For 3 days , starting day after Chemo , for 6 cycles . . hydroxychloroquine 200 MG tablet Commonly known as: Plaquenil Take 1 tablet by mouth in the morning and 1 tablet before bedtime. irbesartan 300 MG tablet Commonly known as: Avapro Take 1 tablet by mouth in the morning. IRON PO Take 1 tablet by mouth daily. multivitamin tablet Take 1 tablet by mouth in the morning. PROBIOTIC DAILY PO Take 1 tablet by mouth in the morning. prochlorperazine 10 MG tablet Commonly known as: Compazine Take 1 tablet by mouth every 6 hours as needed for nausea or vomiting. QC TUMERIC COMPLEX PO Take 1 tablet by mouth in the morning. rosuvastatin 40 MG tablet Commonly known as: Crestor Take 1 tablet by mouth nightly. sodium chloride 0.9 % flush Infuse 10 mL into a venous catheter as needed for line care for up to 50 doses. Infuse as needed for percutaneous nephrostomy tube sulfamethoxazole-trimethoprim 800-160 MG tablet Commonly known as: Bactrim DS Take 1 tablet by mouth in the morning and 1 tablet before bedtime. Do all this for 7 days. Where to Get Your Medications These medications were sent to [facility] [place], [place] - [address] [place] [address] [address] sulfamethoxazole-trimethoprim 800-160 MG tablet Discharge Diagnosis Medical Problems Active and Resolved Hospital Problems Hospital * (Principal) Urinary tract infection Post Discharge Instructions Follow up with providers as schedule Outpatient Follow-Up Future Appointments Date Time Provider Department Center 10/09/2024 11:30 AM [facility] 10/09/2024 1:15 PM Ochoa Matias MD [facility] Test Results Pending At Discharge Pending Labs Order Current Status Beta Glucan (Fungitel), Serum In process Blood Culture (Aerobic/Anaerobet Set) Preliminary result Blood Culture (Aerobic/Anaerobet Set) Preliminary result Urine Culture Preliminary result Pertinent Physical Exam At Time of Discharge General Well appearing, no acute distress Eyes PERRL, EOMI Head NC/AT ENT OP moist. Hearing grossly normal. No mucosal lesions CV RRR, S1 + S2. Murmurs: none. Pulses: 2+ pulses in all extremities RES CTAB. Non-labored breathing GI Soft. NT/ND. No peritoneal signs, PCNT BL, blood tinged right PCNT output now clear, left clear output PRANAY AAOx4. No focal deficits b/l EXT No clubbing. No cyanosis. No edema Skin Without lesions, warm and dry PSY Normal mood and affect Discharge Disposition/Condition Disposition: Home Condition: Stable (s/sx potential problems absent or manageable) I spent >30 minutes of patient care and instruction time in preparation for this discharge. * Dara Vásquez RN - 09/23/2024 1:52 PM EDT Images from the original note were not included. [id number] Discharge Instructions for Percutaneous Nephrostomy You had a procedure called percutaneous nephrostomy. This means that urine was drained from your kidney to prevent pain, infection, and kidney damage. You had the procedure because your kidney or thetube leading from the kidney to the bladder (ureter) was blocked by a kidney stone or tumor, or perhaps due to another problem. The blockage caused a backup of urine in your kidney. A thin, flexible tube (catheter) will stay in place until the problem that caused the buildup of urine has been treated. This may be as soon as a day or as long as weeks to months. The catheter bag is taped to your leg so that you can walk around. Activity ?? Don?t lift anything heavier than 10 pounds until your healthcare provider says it?s OK. ?? Don't do any strenuous activities, such as mowing the lawn, vacuuming, playing sports, or anything that will cause your tubing to be pulled or moved. ?? Slowly increase your activity level with short, frequent walks 3 to 4 times a day. ?? Don?t drive while you are still taking pain medicine. Wait until your healthcare provider says it?s OK to drive. Home care ?? Eat your normal diet. ?? Drink 8 to 12 (8-ounce) cups of liquid each day unless you were told to limit liquids because ofanother condition. About 30 to 60 milliliters of urine should drain into the bag each hour. ?? Wear loose, comfortable clothes that won?t pull or kink the catheter tube. ?? Check your dressing often to make sure the tubing is secure. ?? Don?t let the drainage bag hang freely, or it will pull on the catheter. Keep it secured to yourleg or hold it temporarily. ?? Empty the drainage bag often to keep the weight of the bag from pulling on the catheter. o Empty the bag when it is 1/2 to 2/3 full. o Always empty the bag before you go to bed. o Wash your hands before and after emptying the bag. ?? Measure and record the amount and color of the urine in the bag. ?? Gently clean the skin around the catheter with mild soap and warm water. Check the skin for any signs of infection. Pat dry with a clean towel. ?? Change your dressing if it becomes loose, moist, or dirty. Ask your healthcare provider how yourskin should be cleaned and which skin barriers and attachment devices to use. Ask someone to help you care for your nephrostomy tube and follow the cleaning instructions. ?? Throw away the used dressing in a plastic bag. ?? If you were asked to stop any medicines before the surgery, ask the healthcare provider when youmay start taking them again. This is especially important in the case of blood thinners (anticoagulants or antiplatelet medicines). Follow-up care Follow up with your healthcare provider, or as advised. If you need to have your nephrostomy tube in place for a time, you will need to schedule an appointment to have the tube changed every 2 to 3 months. Otherwise, you will need to schedule an appointment to have the tube removed. Your healthcareprovider will tell you when this needs to happen. When to call your healthcare provider Call your healthcare provider right away if you have any of these: ?? A catheter that is not draining ?? The catheter comes out (don't try to put it back in.) ?? The catheter partly comes out. There may be a black pamella on the tube to pamella the place where thetube enters the skin. Check to see that the black pamella is next to the skin. If the black pamella isn'tnext to the skin, the tube has moved. A healthcare provider needs to put it back in. Don't try to put it back in. ?? Pain, redness, or discharge around the catheter ?? Fever of 100.4??F ( 38??C) or higher, or as directed by your healthcare provider ?? A noticeable increase or decrease in the amount of urine that drains ?? Cloudy or smelly urine ?? Urine that changes to a pink or red color ?? More pain ?? Severe pain in your side ?? Nausea and vomiting ?? New or worsening symptoms Last Reviewed Date: 2022 00:00:00 ?? [id number] [employer] All rights reserved. This information is not intended as a substitute for professional medical care. Always follow your healthcare professional's instructions. * Dagoberto ChangGRANT - Dara Armendariz RN - 09/23/2024 1:41 PM EDT Images from the original note were not included. 24040 Understanding Urinary Tract Infections (UTIs) Most UTIs are caused by bacteria. But they may also be caused by viruses or fungi. Bacteria from the bowel are the most common source of infection. An infection may be more likely due to any of these: ?? Having sex. During sex, bacteria can go from the penis, vagina, or rectum into the urethra. ?? Bacteria outside the rectum getting into the urethra. Bacteria on the skin outside the rectum may go into the urethra. This is more common in people who were assigned female at . That's because, for them, the rectum and urethra are closer to each other than in people who were assigned male at . Wiping from front to back after using the toilet can help prevent germs from getting to the urethra. So can keeping the area clean. ?? Blocked urine flow through the urinary tract. If urine sits too long, germs may start to grow out of control. ?? A new sex partner within the last year. ?? A history of recurrent UTIs and antibiotic use. ?? Use of spermicide and diaphragm. Parts of the urinary tract The infection can occur in any part of the urinary tract. ?? The kidneys. These organs filter blood. They remove wastes and extra water to make urine. ?? The ureters. These tubes carry urine from the kidneys to the bladder. ?? The bladder. This holds urine until you're ready to pee. ?? The urethra. This tube carries urine from the bladder out of the body. It's shorter in people who were assigned female at . So, for them, bacteria can move through it more easily. The urethrais longer in people who were assigned male at . So a UTI is less likely to reach the bladder or kidneys for them. Last Reviewed Date: 2023 00:00:00 ?? [id number] [employer] All rights reserved. This information is not intended as a substitute for professional medical care. Always follow your healthcare professional's instructions. * Progress Notes - Sheree Guevara RN - 09/23/2024 12:10 PM EDT Case Management Adult Initial Progress Note Yaima Viera 69 y.o. 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 PCP: Luis Hatfield MD Emergency Contact: Extended Emergency Contact Information Primary Emergency Contact: Anival Viera Mobile Relation: Spouse Secondary Emergency Contact: Karolyn Morris Mobile Relation: Daughter Insurance: Primary Visit Coverage Payer Plan Sponsor Code Group Number Group Name HU[employer] MEDICARE HU[employer]NA MEDICARE [id number] Primary Visit Coverage Subscriber Subscriber ID Subscriber Name Subscriber SSN Subscriber Address [id number] YAIMA VIERA [id number] [place] [address] Patient information: admit to with PMH as per above who presents with 1 day hx of dizziness, nausea, and vomiting. Admitted to hospital medicine for suspected UTI and concern for new metastatic disease iso known urothelial carcinoma of the bladder. This condition poses an acute threat to life/bodily function. Consulted urology and medical oncology for co managing this patient. Reports home assistance and transport. Lives with her Anival. Pharmacy: [facility] Primary Caregiver: Self Support System: Immediate family Daily Living Activities: Functional Status: Minimum assistance Living Arrangements: Spouse/Significant other Type of Residence: Private residence [address] [facility] [address] [facility] [address] Current DME: BL PCNT [id number] saline flushes with ongoing refill from Retail pharmacy. Equipment Currently Used at Home: Cpap Income Information: Income Source: Retired Income/Expense Information: Income meets expenses Housing Circumstances-Z Codes: Housing Circumstances (select all that apply): None Applicable Patient Referred to: NA Anticipated Discharge Date:09.23.2024 to home Patient's Discharge Goal: home Assistance Available at Discharge: self and family Discharge Transport: family Follow Up Transport: family Home Health / Home Infusion / Outpatient Dialysis Services: Medicare notice: signed and placed on chart Living Will/Advance Directive/Power of Clinical Program Manager /Guardian: copy requested for chart Have you reviewed your Advance Directive and is it valid for this stay?: Yes Advance Directive: Patient does not have advance directive Information Provided on Healthcare Directives: Yes Pre-existing DNR/DNI Order: No Patient Requests Assistance: No Additional Comments: per team, medically ready for discharge. [id number] enrollment complete. Follow up: 17 Hospital Discharge Follow Up Sep 11:[address] [facility] Vascular Interventional Radiology [address] [facility] [address] Oct 09 Office Visit with Ochoa Matias MD Monday 1:15 PM (Arrive by 12:55 PM) Please bring any insurance information and a copayment if required by your insurance company. [facility] Mult[facility] [address] [facility] [phone] Sheree Guevara RN * Care Plan - Liz Garcia RN - 09/23/2024 1:27 AM EDT Problem: Adult Inpatient Plan of Care Goal: Plan of Care Review Outcome: Ongoing, Progressing Goal: Patient-Specific Goal (Individualized) Outcome: Ongoing, Progressing Goal: Absence of Hospital-Acquired Illness or Injury Outcome: Ongoing, Progressing Goal: Optimal Comfort and Wellbeing Outcome: Ongoing, Progressing Goal: Readiness for Transition of Care Outcome: Ongoing, Progressing * Progress Notes - Eleanor Morales MD - 09/22/2024 2:48 PM EDT Images from the original note were not included. Daily Progress Note Summary 69 y.o. female with PMH as per above who presents with 1 day hx of dizziness, nausea, and vomiting.Admitted to hospital medicine for suspected UTI and concern for new metastatic disease iso known urothelial carcinoma of the bladder. This condition poses an acute threat to life/bodily function. Consulted urology and medical oncology for co managing this patient. Length of stay: 1 day Subjective The patient is seen and assessed at bedside. She is feeling better, color on left PCNT output looksclear today, Denied any nausea, dizziness, abdominal pain, state that there is back pain but mostly from lying down on this uncomfortable bed ROS: Denies fever, chills, chest pain, shortness on breath, nausea, vomiting, diarrhea, abdominal pain Objective Labs and Imaging personally reviewed by myself today, 09/22/2024 . Vitals: 09/21/24 1443 09/21/24 2252 09/22/24 0453 09/22/24 1206 BP: 116/71 109/64 104/61 126/73 BP Location: Right arm Right arm Right arm Patient Position: Lying Lying Sitting Pulse: 96 79 71 108 Resp: 18 18 19 Temp: 36.8 ??C (98.3 ??F) 36.7 ??C (98 ??F) 36.4 ??C (97.6 ??F) 36.3 ??C (97.3 ??F) TempSrc: Oral Oral Oral SpO2: 91% 97% 96% 90% Weight: 73.7 kg (162 lb 7.7 oz) Height: BMI: Body mass index is 29.72 kg/m??. Physical Exam: General Well appearing, no acute distress Eyes PERRL, EOMI Head NC/AT ENT OP moist. Hearing grossly normal. No mucosal lesions CV RRR, S1 + S2. Murmurs: none. Pulses: 2+ pulses in all extremities RES CTAB. Non-labored breathing GI Soft. NT/ND. No peritoneal signs, PCNT BL, blood tinged right now clear, left clear output PRANAY AAOx4. No focal deficits b/l EXT No clubbing. No cyanosis. No edema Skin Without lesions, warm and dry PSY Normal mood and affect I/O: I/O last 3 completed shifts: In: 1150 (15.6 mL/kg) [IV Piggyback:1150] Out: 2074 (28.2 mL/kg) [Urine:2074 (0.8 mL/kg/hr)] Weight: 73.7 kg I/O this shift: In: - Out: 650 [Urine:650] Labs: CBC: Results from last 7 days Lab Units 09/20/242051 WBC 10*3/uL 14.96* HEMOGLOBIN g/dL 10.1* HEMATOCRIT % 30.2* PLATELETS 10*3/uL 513* CMP: Results from last 7 days Lab Units 09/21/24 0359 09/20/242051 SODIUM mmol/L 137 135* POTASSIUM mmol/L 4.6 4.3 CHLORIDE mmol/L 99 97 CO2 mmol/L 25 23 BUN mg/dL 25* 27* CREATININE mg/dL 1.25* 1.29* CALCIUM mg/dL 10.0 9.9 BILIRUBIN TOTAL mg/dL 0.3 0.4 ALKALINE PHOSPHATASE U/L 88 101 ALT U/L 8* 10 AST U/L 16 18 GLUCOSE mg/dL 123* 116* Troponins: No results found for: TROPONINT Microbiology/Abx: Antimicrobials Cephalosporins - 3rd Generation Disp Start End cefTRIAXone (Rocephin) 1 g in sodium chloride 0.9% 100 mL IVPB (vial adapter required) -- 09/22/2024-- 1 g, Intravenous, Every 24 hours @ 220 mL/hr, Assemble vial with 100 mL NS and BBraun addEase device (green cap). Penicillin Combinations Disp Start End piperacillin-tazobactam (Zosyn) 4.5 g in sodium chloride 0.9% 100 mL IVPB (vial adapter required) (Discontinued) -- 09/21/2024 09/22/2024 4.5 g, Intravenous, Every 6 hours @ 36.7 mL/hr, Assemble vial with 100 mL NS and BBraun addEase device (green cap). Sodium Disp Start End cefTRIAXone (Rocephin) 1 g in sodium chloride 0.9% 100 mL IVPB (vial adapter required) -- 09/22/2024-- 1 g, Intravenous, Every 24 hours @ 220 mL/hr, Assemble vial with 100 mL NS and BBraun addEase device (green cap). piperacillin-tazobactam (Zosyn) 4.5 g in sodium chloride 0.9% 100 mL IVPB (vial adapter required) (Discontinued) -- 09/21/2024 09/22/2024 4.5 g, Intravenous, Every 6 hours @ 36.7 mL/hr, Assemble vial with 100 mL NS and BBraun addEase device (green cap). Results Procedure Component Value Units Date/Time Multi Drug Resistance Test [[id number]] Collected: 09/21/24 0233 Order Status: Sent Specimen: Swab from Nares and Chantell Rectal Updated: 09/21/24339 Blood Culture (Aerobic/Anaerobet Set) [[id number]] Collected: 09/20/242312 Order Status: Completed Specimen: Blood, Venous Updated: 09/21/24102 Culture Culture in lab Blood Culture (Aerobic/Anaerobet Set) [[id number]] Collected: 09/20/242312 Order Status: Completed Specimen: Blood, Venous Updated: 09/21/24102 Culture Culture in lab Urine Culture [[id number]] Collected: 09/20/242239 Order Status: Sent Specimen: Urine, Nephrostomy, Right Updated: 09/21/24 0002 Microbiology Frequency Override [[id number]] Collected: 09/20/242239 Order Status: Canceled Specimen: Urine, Nephrostomy, Left Imaging: Imaging reviewed by me. EKG: Encounter Date: 07/22/24 EKG now - STAT (adult) Result Value EKG DIAGNOSIS CLASS Abnormal Ventricular Rate 83 Atrial Rate 83 VT Interval 176 QRSD Interval 120 QT Interval 402 QTC Interval 472 P Leiter 72 R Leiter 15 T Wave Leiter 71 Diagnosis Normal sinus rhythm Diagnosis Septal infarct , age undetermined Diagnosis Abnormal ECG Diagnosis Diagnosis Confirmed by Juan Antonio Jordan ([id number]) on 07/23/2024 10:46:45 AM *Note: Due to a large number of results and/or encounters for the requested time period, some results have not been displayed. A complete set of results can be found in Results Review. Medications (scheduled): buPROPion, 75 mg, Oral, BID cefTRIAXone, 1 g, Intravenous, q24h enoxaparin, 40 mg, Subcutaneous, Daily lidocaine, 1 patch, Apply externally, q24h polyethylene glycol, 17 g, Oral, Daily rosuvastatin, 40 mg, Oral, Nightly senna, 2 tablet, Oral, Nightly sodium chloride, 10 mL, Intravenous, q12h Medications (continous): Medications (PRN): PRN medications: acetaminophen, ipratropium-albuterol, ondansetron ODT OR ondansetron OR ondansetron, Insert peripheral IV AND Saline lock IV AND sodium chloride AND sodium chloride Assessment and Plan #Sepsis 2/2 suspected UTI iso recent bilateral nephrostomy tube placement: - Presents with 1 day hx of dizziness, nausea, and vomiting. - Recently admitted 09/11/24-09/13/24 with bilateral hydronephrosis. Now -s/p bilateral nephrostomy tube placement with IR (09/12) - Meets sepsis criteria upon arrival to [facility] on 09/20/24 (leukocytosis, tachycardia, tachypnea with suspected source of infection) - UA from right nephrostomy tube with moderate leukocytes, large blood, protein >300, and yeast,will request record from OSH for urine culture result - s/p rocephin x1 at OSH PLAN: - Start zosyn x 7 days(given immunocompromised status, bilateral nephrostomy tubes, and recent hospitalization) and added Diflucan as showing yeast + on UA -urine culture growing GPC and pending sensitivities - pending Bcx - Ordered beta glucan - Consulted urology, no acute urological intervention, OP f/U with Dr. 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 S/p transurethral resection with urology 07/23/24. - Recent admission 09/11/24-09/13/24 for bilateral hydronephrosis. S/p bilateral nephrostomy tube placement on 09/12/24 with IR - Has not start chemo or radiation for cancer given kidney dysfunction - CT Chest and Abdomen at OSH read with concern for new pulmonary nodules and new metastatic lesionin dome of liver. Images personally reviewed showing bilateral ground glass opacities of lungs. PLAN: - Consulted heme/onc, no inpatient intervention, F/U with her regular oncologist - plan to discharge tomorrow after final culture result so that can start treatment on Monday #Normocytic Anemia iso known malignancy, improving - On admission, Hgb 10.1 with MCV 86 - Per chart review, developed anemia at time of urothelial carcinoma diagnosis 2/2 acute blood lossfrom hematuria -On exam, mild hematuria noted from right nephrostomy tube. No obvious signs of bleeding PLAN: - Will continue to monitor #Elevated creatinine iso known urothelial carcinoma - Creatinine on admission 1.29; baseline appears to be 1.4 although may be skewed iso urothelial carcinoma PLAN: - Continue to monitor Chronic Medical Conditions: #HLD: continue home rosuvastatin #Tobacco use disorder: continue home bupropion. Patient declines nicotine replacement #SLE: hold home hydroxychloroquine HTN: Resolved: #Hypotension: Resolved - BP on admission 98/77, received fluid - Low concern for shock at this time, although remains a concern given patient meets sepsis criteria DVT Ppx: PLOV Diet: Regular diet Code status: Full Code Discharge Planning: Anticipated discharge to: TBD Barriers to discharge: UTI Family Contact: Anival Viera Amy Follow-up: Future Appointments Date Time Provider Department Center 09/26/2024 11:30 AM [facility] 10[facility]09/2024 1:15 PM Ochoa Matias MD [facility] Electronically signed by, Eleanor Morales MD Hospitalist/Internal Medicine Please message with any questions or concerns * Progress Notes - Cassie Zhang MD - 09/22/2024 12:09 PM EDT Onc dx: MIBC Admit date 09/20/2024 Admit dx: 09/20 Primary oncologist: Magdiel Henderson Assessment/Plan Yaima Viera is 69 y.o. with high-grade MIBC s/p TURBT who presents with UTI and concern fordisease progression. CT CAP from OSH reviewed. Interval progression of disease appreciated with multiple bibasilar pulmonary nodules that appear metastatic. Of note ctDNA was also positive at time of TURP and thus high risk for recurrence/progression. Tissue sample can likely be deferred. One liver lesion noted that issmall and indeterminate. Regardless, patient's urothelial carcinoma is metastatic and as a result warrants a change in therapy to enfortumab vedotin and pembrolizumab. This can be deferred until outpatient follow up with Dr. Henderson. Summary of recommendations: - No inpatient intervention is needed. - We had a discussion that with current stage our treatment goal is NOT curative intent. However, with therapeutic interventions we aim to 1) prevent further complications from mass effect of cancer 2) prevent new metastatic lesions 3) stabilize and/or shrink existing lesions 4) preserve quality oflife with tolerable side effects. - Outpatient follow up with Dr. Henderson is on Monday, will call and inform office regarding recommendation to start enfortumab vedotin and pembrolizumab per EV- 302 trial. - have asked primary to discuss with IR Monday morning about appt. - Will send tissue off further testing with Fili on Monday. Oncology will continue to follow. Recommendations were communicated to the primary service. Please call with additional questions or concerns. Subjective Mrs Viera is doing well. No acute issues. Feels better than yesterday. She is hoping to be discharge to see Dr Henderson on Mon , has appt. Would like to know if she needs to return on for IR appt. We discuss need to have nep tubes as long as there is tumor related obstruction to prevent worsening for kidney function and she verbalized understanding. Ros negative unless noted Objective Last Recorded Vitals Blood pressure 126/73, pulse 108, temperature 36.3 ??C (97.3 ??F), temperature source Oral, resp. rate 19, height 1.575 m (5' 2 ), weight 73.7 kg (162 lb 7.7 oz), SpO2 90%. Performance Status 2: Ambulatory and capable of all self-care but unable to work. Up & about >50% waking hours Gen: NAD. Comfortable. Well-appearing HEENT: Sclera non-icteric. No pharyngeal erythema. No oral lesions. Lymph: No cervical lymphadenopathy. CV: RRR. No murmur. Warm and well-perfused. There is no peripheral edema. Pulm: Lungs CTAB. Normal work of breathing on nasal cannula. Abd: Soft, non-tender, non-distended, no HSM. Musc: No joint swelling or erythema. No contractures or joint deformities. Skin: No petechiae or bruising. Neuro: Alert and appropriately conversant. There are no gross neurologic deficits. Psych: Mood and affect appropriate for setting No labs today Imaging see imaging interpretation above I personally visualized the radiology scans above and gave copies of scans. Cassie Zhang MD * Care Plan - Rani Deutsch RN - 09/22/2024 2:38 AM EDT Problem: Adult Inpatient Plan of Care Goal: Plan of Care Review Outcome: Ongoing, Progressing Goal: Patient-Specific Goal (Individualized) Outcome: Ongoing, Progressing Goal: Absence of Hospital-Acquired Illness or Injury Outcome: Ongoing, Progressing Goal: Optimal Comfort and Wellbeing Outcome: Ongoing, Progressing Goal: Readiness for Transition of Care Outcome: Ongoing, Progressing * Progress Notes - Eleanor Morales MD - 09/21/2024 1:04 PM EDT Images from the original note were not included. Daily Progress Note Summary 69 y.o. female with PMH as per above who presents with 1 day hx of dizziness, nausea, and vomiting.Admitted to hospital medicine for suspected UTI and concern for new metastatic disease iso known urothelial carcinoma of the bladder. This condition poses an acute threat to life/bodily function. Consulted urology and medical oncology for co managing this patient. Length of stay: 0 days Subjective The patient is seen and assessed at bedside. She is feeling better that she was, stated she was feeling dizzy, nausea, denied any fever, nausea, vomiting or flank pain She has appointment on Monday and asking about whether she has to reschedule or not, state that she can keep at this time ROS: Denies fever, chills, chest pain, shortness on breath, nausea, vomiting, diarrhea, abdominal pain Objective Labs and Imaging personally reviewed by myself today, 09/21/2024 . Vitals: 09/21/24 0650 09/21/24 0700 09/21/24 0900 09/21/24 1100 BP: 116/62 120/58 113/59 135/65 BP Location: Right arm Patient Position: Lying Pulse: 80 79 82 80 Resp: 14 14 18 18 Temp: 36.8 ??C (98.2 ??F) 36.9 ??C (98.5 ??F) TempSrc: Oral SpO2: 93% 91% Weight: Height: BMI: Body mass index is 31.09 kg/m??. Physical Exam: General Well appearing, no acute distress Eyes PERRL, EOMI Head NC/AT ENT OP moist. Hearing grossly normal. No mucosal lesions CV RRR, S1 + S2. Murmurs: none. Pulses: 2+ pulses in all extremities RES CTAB. Non-labored breathing GI Soft. NT/ND. No peritoneal signs, PCNT BL, blood tinged right, left clear output PRANAY AAOx4. No focal deficits b/l EXT No clubbing. No cyanosis. No edema Skin Without lesions, warm and dry PSY Normal mood and affect I/O: I/O last 3 completed shifts: In: 650 (8.4 mL/kg) [IV Piggyback:650] Out: 650 (8.4 mL/kg) [Urine:650 (0.2 mL/kg/hr)] Weight: 77.1 kg I/O this shift: In: - Out: 650 [Urine:650] Labs: CBC: Results from last 7 days Lab Units 09/20/242051 WBC 10*3/uL 14.96* HEMOGLOBIN g/dL 10.1* HEMATOCRIT % 30.2* PLATELETS 10*3/uL 513* CMP: Results from last 7 days Lab Units 09/21/24 0359 09/20/242051 SODIUM mmol/L 137 135* POTASSIUM mmol/L 4.6 4.3 CHLORIDE mmol/L 99 97 CO2 mmol/L 25 23 BUN mg/dL 25* 27* CREATININE mg/dL 1.25* 1.29* CALCIUM mg/dL 10.0 9.9 BILIRUBIN TOTAL mg/dL 0.3 0.4 ALKALINE PHOSPHATASE U/L 88 101 ALT U/L 8* 10 AST U/L 16 18 GLUCOSE mg/dL 123* 116* Troponins: No results found for: TROPONINT Microbiology/Abx: Antimicrobials Anti-infective Misc. - Combinations Disp Start End sulfamethoxazole-trimethoprim (Bactrim DS) 800-160 MG tablet -- -- Sig - Route: Take 1 tablet by mouth in the morning and 1 tablet before bedtime. For 7 days . Start date 09/02/2024. - Oral Class: Historical Med Cephalosporins - 3rd Generation Disp Start End cefTRIAXone (Rocephin) 2 g in sodium chloride 0.9% 100 mL IVPB (vial adapter required) (Discontinued) -- 09/21/2024 09/21/2024 2 g, Intravenous, Every 24 hours @ 220 mL/hr, Assemble vial with 100 mL NS and BBraun addEase device (green cap). Penicillin Combinations Disp Start End piperacillin-tazobactam (Zosyn) 4.5 g in sodium chloride 0.9% 100 mL IVPB (vial adapter required) -- 09/21/2024 -- 4.5 g, Intravenous, Every 6 hours @ 36.7 mL/hr, Assemble vial with 100 mL NS and BBraun addEase device (green cap). Sodium Disp Start End piperacillin-tazobactam (Zosyn) 4.5 g in sodium chloride 0.9% 100 mL IVPB (vial adapter required) -- 09/21/2024 -- 4.5 g, Intravenous, Every 6 hours @ 36.7 mL/hr, Assemble vial with 100 mL NS and BBraun addEase device (green cap). cefTRIAXone (Rocephin) 2 g in sodium chloride 0.9% 100 mL IVPB (vial adapter required) (Discontinued) -- 09/21/2024 09/21/2024 2 g, Intravenous, Every 24 hours @ 220 mL/hr, Assemble vial with 100 mL NS and BBraun addEase device (green cap). Results Procedure Component Value Units Date/Time Multi Drug Resistance Test [[id number]] Collected: 09/21/24 0233 Order Status: Sent Specimen: Swab from Nares and Chantell Rectal Updated: 09/21/24 034 Blood Culture (Aerobic/Anaerobet Set) [[id number]] Collected: 09/20/242312 Order Status: Completed Specimen: Blood, Venous Updated: 09/21/24102 Culture Culture in lab Blood Culture (Aerobic/Anaerobet Set) [[id number]] Collected: 09/20/242312 Order Status: Completed Specimen: Blood, Venous Updated: 09/21/24102 Culture Culture in lab Urine Culture [[id number]] Collected: 09/20/242239 Order Status: Sent Specimen: Urine, Nephrostomy, Right Updated: 09/21/24 0002 Microbiology Frequency Override [[id number]] Collected: 09/20/242239 Order Status: Canceled Specimen: Urine, Nephrostomy, Left Imaging: Imaging reviewed by me. EKG: Encounter Date: 07/22/24 EKG now - STAT (adult) Result Value EKG DIAGNOSIS CLASS Abnormal Ventricular Rate 83 Atrial Rate 83 VT Interval 176 QRSD Interval 120 QT Interval 402 QTC Interval 472 P Leiter 72 R Leiter 15 T Wave Leiter 71 Diagnosis Normal sinus rhythm Diagnosis Septal infarct , age undetermined Diagnosis Abnormal ECG Diagnosis Diagnosis Confirmed by Juan Antonio Jordan ([id number]) on 07/23/2024 10:46:45 AM *Note: Due to a large number of results and/or encounters for the requested time period, some results have not been displayed. A complete set of results can be found in Results Review. Medications (scheduled): buPROPion, 75 mg, Oral, BID [START ON 09/22/2024] enoxaparin, 40 mg, Subcutaneous, Daily fluconazole, 200 mg, Oral, Daily piperacillin-tazobactam, 4.5 g, Intravenous, q6h polyethylene glycol, 17 g, Oral, Daily rosuvastatin, 40 mg, Oral, Nightly senna, 2 tablet, Oral, Nightly sodium chloride, 10 mL, Intravenous, q12h Medications (continous): Medications (PRN): PRN medications: ipratropium-albuterol, ondansetron ODT OR ondansetron OR ondansetron, Insert peripheral IV AND Saline lock IV AND sodium chloride AND sodium chloride Assessment and Plan #Sepsis 2/2 suspected UTI iso recent bilateral nephrostomy tube placement: - Presents with 1 day hx of dizziness, nausea, and vomiting. - Recently admitted 09/11/24-09/13/24 with bilateral hydronephrosis. Now -s/p bilateral nephrostomy tube placement with IR (09/12) - Meets sepsis criteria upon arrival to [facility] on 09/20/24 (leukocytosis, tachycardia, tachypnea with suspected source of infection) - UA from right nephrostomy tube with moderate leukocytes, large blood, protein >300, and yeast,will request record from OSH for urine culture result - s/p rocephin x1 at OSH PLAN: - Start zosyn x 7 days(given immunocompromised status, bilateral nephrostomy tubes, and recent hospitalization) and added Diflucan as showing yeast + on UA - pending urine culture and sensitivities - pending Bcx - Ordered beta glucan - Consulted urology, no acute urological intervention, OP f/U with Dr. 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 S/p transurethral resection with urology 07/23/24. - Recent admission 09/11/24-09/13/24 for bilateral hydronephrosis. S/p bilateral nephrostomy tube placement on 09/12/24 with IR - Has not start chemo or radiation for cancer given kidney dysfunction - CT Chest and Abdomen at OSH read with concern for new pulmonary nodules and new metastatic lesionin dome of liver. Images personally reviewed showing bilateral ground glass opacities of lungs. PLAN: - Consulted heme/onc, no inpatient intervention, F/U with her regular oncologist - Will keep patient NPO in case urology plans for any intervention in AM #Normocytic Anemia iso known malignancy, improving - On admission, Hgb 10.1 with MCV 86 - Per chart review, developed anemia at time of urothelial carcinoma diagnosis 2/2 acute blood lossfrom hematuria -On exam, mild hematuria noted from right nephrostomy tube. No obvious signs of bleeding PLAN: - Will continue to monitor #Elevated creatinine iso known urothelial carcinoma - Creatinine on admission 1.29; baseline appears to be 1.4 although may be skewed iso urothelial carcinoma PLAN: - Continue to monitor Chronic Medical Conditions: #HLD: continue home rosuvastatin #Tobacco use disorder: continue home bupropion. Patient declines nicotine replacement #SLE: hold home hydroxychloroquine HTN: Resolved: #Hypotension: Resolved - BP on admission 98/77, received fluid - Low concern for shock at this time, although remains a concern given patient meets sepsis criteria DVT Ppx: PLOV Diet: Regular diet Code status: Full Code Discharge Planning: Anticipated discharge to: TBD Barriers to discharge: UTI Family Contact: Anival Viera Amy Follow-up: Future Appointments Date Time Provider Department Center 09/26/2024 11:30 AM [facility] 10/09/2024 1:15 PM Ochoa Matias [facility] Electronically signed by, Eleanor Morales MD Hospitalist/Internal Medicine Please message with any questions or concerns * Consults - Josiah Wharton MBBS - 09/21/2024 12:38 PM EDTAssociated Order(s): IP CONSULT TO ONCOLOGY Medical Oncology Consult Note Date: 09/21/24 Reason for Consult: Concern for disease progression Onc dx: MIBC Admit date 09/20/2024 Admit dx: 09/20 Primary oncologist: Magdiel Henderson Assessment/Plan Yaima Viera is 69 y.o. with high-grade MIBC s/p TURBT who presents with UTI and concern fordisease progression. CT CAP from OSH reviewed. Interval progression of disease appreciated with multiple bibasilar pulmonary nodules that appear metastatic. Tissue sample can likely be deferred. One liver lesion noted that is small and indeterminate. Regardless, patient's urothelial carcinoma is metastatic and as a result warrants a change in therapy to enfortumab vedotin and pembrolizumab. This can be deferred untiloutpatient follow up with Dr. Henderson. Summary of recommendations: - No inpatient intervention is needed. - Outpatient follow up with Dr. Henderson, will call and inform office regarding recommendation to startenfortumab vedotin and pembrolizumab per EV-302 trial. - Will send tissue off further testing with Fili on Monday. Oncology will continue to follow. Recommendations were communicated to the primary service. Please call with additional questions or concerns. Case discussed with Dr. Zhang who was involved in the formulation of the plan above. MALIK Morales PGY-4 Fellow, H[facility]ology/[facility] Pager: History of Present Illness Yaima Viera is a 69-year-old female, history of high-grade muscle- invasive urothelial cancer of the bladder s/p TURBT (07/23/2024). She established with Dr. Ramos on 08/14, and was recommended split-dose cisplatin combined with gemcitabine and durvalumab in the neoadjuvant setting, followed byradical cystectomy and adjuvant durvalumab (per NIAGARA study). Due to convenience, these recommendations were forwarded to Dr. Magdiel Henderson at [facility], close to patient's residence in [facility]. Initiation of systemic therapy was deferred due to elevated Cr, which ultimately brought her back to on 09/11, when she was hospitalized until 09/13 - during which she underwent bilateral perc utaneous nephrostomy tube placement. Over the past few days, she has had dizziness and nausea, which prompted her to present at a local ED. She was evaluated for UTI and referred to for further evaluation. --Oncology History-- Oncology History Overview Note Ms. Yaima Viera is a 69 year old female with high-grade muscle invasive bladder cancer. - 05/2024: Began having painless hematuria. - 07/2024: Presented to OSH for evaluation, found to have 4.4cm bladder mass, R hydronephrosis, VINCENZO,ABLA. - 07/23/2024: Underwent TURBT and R ureteral stent placement with urology. Pathology resulted as MUSCLE INVASIVE HIGH-GRADE PAPILLARY UROTHELIAL CARCINOMA w/ LYMPHOVASCULAR INVASION IDENTIFIED. Bladder cancer (CMS/HCC) 07/25/2024 Initial Diagnosis Bladder cancer (CMS/HCC) Past Medical, Surgical, Family, and Social History: Reviewed by me; any relevant updates made in [facility]. Social History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 LAB HEMATOLOGY METHOD 09/20/2024 8:55 PM EDT [facility] Eosinophils % 1 % LAB HEMATOLOGY METHOD 09/20/2024 8:55 PM EDT [facility] Basophils % 0 % LAB HEMATOLOGY METHOD 09/20/2024 8:55 PM EDT [facility] Immature Granulocytes % 1 % LAB HEMATOLOGY METHOD 09/20/2024 8:55 PM EDT [facility] Neutrophils Absolute 11.29(H) 1.60 - 6.10 10*3/uL LAB HEMATOLOGY METHOD 09/20/2024 8:55 PM EDT [facility] Lymphocytes Absolute 2.27 1.20 - 3.90 10*3/uL LAB HEMATOLOGY METHOD 09/20/2024 8:55 PM EDT [facility] Monocytes Absolute 1.05(H) 0.30 - 0.90 10*3/uL LAB HEMATOLOGY METHOD 09/20/2024 8:55 PM EDT [facility] Eosinophils Absolute 0.18 0.00 - 0.50 10*3/uL LAB HEMATOLOGY METHOD 09/20/2024 8:55 PM EDT [facility] Basophils Absolute 0.06 0.00 - 0.10 10*3/uL LAB HEMATOLOGY METHOD 09/20/2024 8:55 PM EDT [facility] Immature Granulocytes Absolute 0.11(H) 0.00 - 0.06 10*3/uL LAB HEMATOLOGY METHOD 09/20/2024 8:55 PM EDT [facility] Blood Venous blood specimen / Unknown Venipuncture / Unknown 09/20/2024 8:52 PM EDT 09/20/2024 8:53 PM EDT Narrative [facility] - 09/20/2024 8:55 PM EDT Therapeutic decision making should be based on absolute values, rather than percentages. Sheree Augustine MD LAB BLOOD ORDERABLES Final Resu lt [facility] [address] [place] [address] * (ABNORMAL) Magnesium (09/20/2024 8:52 PM EDT) Magnesium, Plasma 1.8(L) 1.9 - 2.4 mg/dL 09/20/2024 9:13 PM EDT [facility] Blood Venous blood specimen / Unknown Venipuncture / Unknown 09/20/2024 8:52 PM EDT 09/20/2024 8:53 PM EDT Sheree Augustine MD LAB BLOOD ORDERABLES Final Resu lt [facility] [address] [place] [address] * Lipase (09/20/2024 8:52 PM EDT) Lipase, Plasma 42 19 - 63 U/L 09/20/2024 9:13 PM EDT [facility] Blood Venous blood specimen / Unknown Venipuncture / Unknown 09/20/2024 8:52 PM EDT 09/20/2024 8:53 PM EDT Shreee Augustine MD LAB BLOOD ORDERABLES Final Resu lt Performing Organization Address City/[facility]/ZIP Co de Phone Number [facility] [address] [place] [address] * (ABNORMAL) CMP (09/20/2024 8:52 PM EDT) Glucose, Plasma 116(H) 74 - 99 mg/dL 09/20/2024 9:13 PM EDT [facility] BUN, Plasma 27(H) 8 - 23 mg/dL 09/20/2024 9:13 PM EDT [facility] Creatinine, Plasma 1.29(H) 0.60 - 1.10 mg/dL 09/20/2024 9:13 PM EDT [facility] BUN/Creatinine Ratio 21 09/20/2024 9:13 PM EDT [facility] Sodium, Plasma 135(L) 136 - 145 mmol/L 09/20/2024 9:13 PM EDT [facility] Potassium, Plasma 4.3 3.6 - 4.9 mmol/L 09/20/2024 9:13 PM EDT [facility] Chloride, Plasma 97 97 - 107 mmol/L 09/20/2024 9:13 PM EDT [facility] CO2, Plasma 23 22 - 29 mmol/L 09/20/2024 9:13 PM EDT [facility] Anion Gap 15 6 - 16 mmol/L 09/20/2024 9:13 PM EDT [facility] Total Calcium, Plasma 9.9 8.9 - 10.2 mg/dL 09/20/2024 9:13 PM EDT [facility] Total Protein 7.7 6.3 - 7.9 g/dL 09/20/2024 9:13 PM EDT [facility] Albumin, Plasma 3.9 3.5 - 5.2 g/dL 09/20/2024 9:13 PM EDT [facility] AST, Plasma 18 10 - 35 U/L 09/20/2024 9:13 PM EDT [facility] ALT, Plasma 10 10 - 35 U/L 09/20/2024 9:13 PM EDT [facility] Alkaline Phosphatase, Plasma 101 46 - 142 U/L 09/20/2024 9:13 PM EDT [facility] Total Bilirubin, Plasma 0.4 0.2 - 1.1 mg/dL 09/20/2024 9:13 PM EDT [facility] eGFRcr 44.7 mL/min/1.7 3m*2 09/20/2024 9:13 PM EDT [facility] Comment:Reported eGFRcr in m L/min/1.73m2 is based the CKD-EPI 2020 equation that does not use a race coefficient. Blood Venous blood specimen / Unknown Venipuncture / Unknown 09/20/2024 8:52 PM EDT 09/20/2024 8:53 PM EDT us Sheree Augustine MD LAB BLOOD ORDERABLES Final Resu lt [facility] [address] [place] [address] documented in this encounter Visit Diagnoses Diagnosis Urinary tract infection- Primary Urinary tract infection, site not specified Acute cystitis with hematuria documented in this encounter Admitting Diagnoses Diagnosis Urinary tract infection Urinary tract infection, site not specified documented in this encounter Administered Medications Inactive Administered Medications - up to 3 most recent administrations Medication Order MAR Action Action Date Dose Rate Site acetaminophen (Tylenol) tablet 650 mg 650 mg, Oral, Every 6 hours PRN, Starting on 09/21/24 at 3, Until 09/23/24 at 1728, Routine, mild pain Given 09/23/2024 8:44 AM EDT 650 mg Given 09/22/2024 11:23 PM EDT 650 mg Given 09/22/2024 2:00 AM EDT 650 mg buPROPion (Wellbutrin) tablet 75 mg 75 mg, Oral, 2 times daily, First dose on 09/21/24 at 0015, Until Discontinued, Routine Given 09/23/2024 8:39 AM EDT 75 mg Given 09/22/2024 8:13 PM EDT 75 mg Given 09/22/2024 8:20 AM EDT 75 mg cefTRIAXone (Rocephin) 1 g in sodium chloride 0.9% 100 mL IVPB (vial adapter required) 1 g, Intravenous, Every 24 hours, First dose on Mon09/22/24 at 1400, Until Discontinued, Routine New Bag 09/22/2024 1:16 PM EDT 1 g 220 mL/hr cefTRIAXone (Rocephin) 2 g in sodium chloride 0.9% 100 mL IVPB (vial adapter required) 2 g, Intravenous, Every 24 hours, First dose on Mon09/21/24 at 0015, Until Discontinued, Routine New Bag 09/21/2024 12:35 AM EDT 2 g 220 mL/hr enoxaparin (Lovenox) syringe 30 mg 30 mg, Subcutaneous, Daily, First dose on Mon09/21/24 at 0010, Until Discontinued, Routine Given 09/21/2024 12:36 AM EDT 30 mg Left Lower Abdomen enoxaparin (Lovenox) syringe 40 mg 40 mg, Subcutaneous, Daily, First dose on Mon09/22/24 at 0900, Until Discontinued, Routine Given 09/23/2024 8:38 AM EDT 40 mg Left Lower Abdomen Given 09/22/2024 8:20 AM EDT 40 mg Ri ght Lower Abdomen fluconazole (Diflucan) tablet 200 mg 200 mg, Oral, Daily, 14 doses, First dose on Mon09/21/24 at 0920, Last dose on Mon10/04/24 at 0900, Routine Given 09/22/2024 8:20 AM EDT 200 mg Given 09/21/2024 10:21 AM EDT 200 mg ipratropium-albuterol (Duo-Neb) 0.5-2.5 mg/3 mL nebulizer solution 3 mL 3 mL, Nebulization, Every 6 hours PRN, Starting on 09/21/24 at 0006, Until 09/23/24 at 1728, Routine, wheezing, shortness of breath lactated Ringer's bolus 500 mL 500 mL, Intravenous, Once, 1 dose, On 09/21/24 at 0010, Administer over 2 Hours, STAT New Bag 09/21/2024 12:35 AM EDT 500 mL 250 mL/hr lidocaine (Lidoderm) 5 % patch 1 patch 1 patch, Apply externally, Every 24 hours, First dose on 09/22/24 at 0115, Until Discontinued, Administer over 12 Hours, Routine Medication Applied 09/22/2024 2:01 AM EDT 1 patch Back lidocaine (Lidoderm) 5 % patch 1 patch 1 patch, Apply externally, Every 24 hours, First dose (after last modification) on 09/22/24 at 1415, Until Discontinued, Administer over 12 Hours, Routine Medication Applied 09/22/2024 1:39 PM EDT 1 patch Back magnesium sulfate IVPB 2 g 2 g, Intravenous, Once, 1 dose, On 09/21/24 at 0010, Routine New Bag 09/21/2024 12:34 AM EDT 2 g 25 mL/hr ondansetron (Zofran) 4 MG/5ML solution 4 mg 4 mg, Oral, Every 6 hours PRN, Starting on 09/21/24 at 0006, Until 09/23/24 at 1728, Routine, nausea, vomiting ondansetron (Zofran) injection 4 mg 4 mg, Intravenous, Every 6 hours PRN, Starting on 09/21/24 at 0006, Until 09/23/24 at 1728, Routine, vomiting, nausea Given 09/21/2024 12:43 AM EDT 4 mg ondansetron ODT (Zofran-ODT) disintegrating tablet 4 mg 4 mg, Oral, Every 6 hours PRN, Starting on 09/21/24 at 0006, Until 09/23/24 at 1728, Routine, nausea, vomiting Given 09/22/2024 8:13 PM EDT 4 mg Given 09/22/2024 10:54 AM EDT 4 mg piperacillin-tazobactam (Zosyn) 4.5 g in sodium chloride 0.9% 100 mL IVPB (vial adapter required) 4.5 g, Intravenous, Every 6 hours, First dose on 09/21/24 at 0145, Until Discontinued, Routine New Bag 09/22/2024 8:20 AM EDT 4.5 g 36. 7 mL/hr New Bag 09/22/2024 2:00 AM EDT 4.5 g 36.7 mL/hr New Bag 09/21/2024 8:19 PM EDT 4.5 g 36.7 mL/hr polyethylene glycol (Miralax) packet 17 g 17 g, Oral, Daily, First dose on 09/21/24 at 0900, Until Discontinued, Routine Given 09/21/2024 9:30 AM EDT 17 g rosuvastatin (Crestor) tablet 40 mg 40 mg, Oral, Nightly, First dose on 09/21/24 at 0030, Until Discontinued Given 09/22/2024 8:13 PM EDT 40 mg Given 09/21/2024 8:20 PM EDT 40 mg Given 09/21/2024 12:35 AM EDT 40 mg senna (Senokot) tablet 17.2 mg 17.2 mg (2 tablet), Oral, Nightly, First dose on 09/21/24 at 0010, Until Discontinued, Routine Given 09/22/2024 8:13 PM EDT 17.2 mg Given 09/21/2024 8:20 PM EDT 17.2 mg Given 09/21/2024 12:35 AM EDT 17.2 mg sodium chloride 0.9 % flush 10 mL 10 mL, Intravenous, Every 12 hours, First dose on 09/21/24 at 0010, Until Discontinued, Routine Given 09/23/2024 11:23 AM EDT 10 mL Given 09/22/2024 11:36 PM EDT 10 mL Given 09/22/2024 12:15 AM EDT 10 mL sodium chloride 0.9 % flush 10 mL 10 mL, Intravenous, As needed, Starting on 09/21/24 at 0006, Until 09/23/24 at 1728, Routine, line care documented in this encounter Active and Recently Administered Medications Times are shown in EDT. Scheduled Medication Order 09/21/2024 09/22/2024 09/23/2024 buPROPion (Wellbutrin) tablet 75 mg 75 mg, Oral, 2 times daily, First dose on 09/21/24 at 0015, Until Discontinued, Routine 0035 (Given - Provider: Cecille Watkins)0930 (Given - Provider: Mallorie Thomas, RN)2019 (Given - Provider: Rani Deutsch, GALINA) 0820 (Given - Provider: Spencer Tavera, RN)2012 (Given - Provider: Liz Garcia, RN) 0839 (Given - Provider: Dara Armendariz, RN) cefTRIAXone (Rocephin) 1 g in sodium chloride 0.9% 100 mL IVPB (vial adapter required) 1 g, Intravenous, Every 24 hours, First dose on 09/22/24 at 1400, Until Discontinued, Routine 1316 (New Bag - Provider: Spencer Tavera RN) 1407 (Not Given - Provider: Dara Armendariz RN - Reason: Hold for condition: must add comment - Comment: pt discharging) cefTRIAXone (Rocephin) 2 g in sodium chloride 0.9% 100 mL IVPB (vial adapter required) (CANCELED) 2 g, Intravenous, Every 24 hours, First dose on 09/21/24 at 0015, Until Discontinued, Routine 0035 (New Bag - Provider: Cecille Watkins)0105 (Stopped - Provider: Cecille Watkins) enoxaparin (Lovenox) syringe 30 mg (CANCELED) 30 mg, Subcutaneous, Daily, First dose on 09/21/24 at 0010, Until Discontinued, Routine 0036 (Given - Provider: Cecille Watkins) enoxaparin (Lovenox) syringe 40 mg 40 mg, Subcutaneous, Daily, First dose on 09/22/24 at 0900, Until Discontinued, Routine 0820 (Given - Provider: Spencer Tavera RN) 0838 (Given - Provider: Dara Armendariz, GALINA) fluconazole (Diflucan) tablet 200 mg (CANCELED) 200 mg, Oral, Daily, 14 doses, First dose on 09/21/24 at 0920, Last dose on Mon10/04/24 at 0900, Routine 1021 (Given - Provider: Mallorie Thomas, GALINA) 0820 (Given - Provider: Spencer Tavera RN) lactated Ringer's bolus 500 mL (COMPLETED) 500 mL, Intravenous, Once, 1 dose, On 09/21/24 at 0010, Administer over 2 Hours, STAT 0035 (New Bag - Provider: Cecille Watkins)0156 (Stopped - Provider: Cecille Watkins) lidocaine (Lidoderm) 5 % patch 1 patch (CANCELED) 1 patch, Apply externally, Every 24 hours, First dose on 09/22/24 at 0115, Until Discontinued, Administer over 12 Hours, Routine 0201 (Medication Applied - Provider: Rani Deutsch, RN) lidocaine (Lidoderm) 5 % patch 1 patch 1 patch, Apply externally, Every 24 hours, First dose (after last modification) on 09/22/24 at 1415, Until Discontinued, Administer over 12 Hours, Routine 1300 (Medication Removed - Provider: Spencer Tavera RN - Comment: Time moved from discontinued order due to modification)1339 (Medication Applied - Provider: Spencer Tavera, RN) 0055 (Medication Removed - Provider: Liz Garcia RN)1407 (Not Given - Provider: Dara Armendariz RN - Reason: Hold for condition: must add comment - Comment: pt discharging) magnesium sulfate IVPB 2 g (COMPLETED) 2 g, Intravenous, Once, 1 dose, On 09/21/24 at 0010, Routine 0034 (New Bag - Provider: Cecille Watkins)0231 (Stopped - Provider: Cecille Watkins) piperacillin-tazobactam (Zosyn) 4.5 g in sodium chloride 0.9% 100 mL IVPB (vial adapter required) (CANCELED) 4.5 g, Intravenous, Every 6 hours, First dose on 09/21/24 at 0145, Until Discontinued, Routine 0230 (New Bag - Provider: Cecille Watkins)0524 (Stopped - Provider: Shari Grider, GALINA)0703 (New Bag - Provider: Mallorie Thomas, GALINA)1145 (Stopped - Provider: Mallorie Thomas, RN)1500 (New Bag - Provider: Spencer Tavera, RN)2019 (New Bag - Provider: Rani Deutsch, RN) 0200 (New Bag - Provider: Rani Deutsch, RN)0820 (New Bag - Provider: Spencer Tavera, GALINA) polyethylene glycol (Miralax) packet 17 g 17 g, Oral, Daily, First dose on 09/21/24 at 0900, Until Discontinued, Routine 0930 (Given - Provider: Mallorie Thomas RN) 0821 (Not Given - Provider: Spencer Tavera RN - Reason: Patient/family refused) 0839 (Not Given - Provider: Dara Armendariz, GALINA - Reason: Patient/family refused) rosuvastatin (Crestor) tablet 40 mg 40 mg, Oral, Nightly, First dose on 09/21/24 at 0030, Until Discontinued 003 (Given - Provider: Cecille Watkins)2019 (Given - Provider: Rani Deutsch, RN) 2012 (Given - Provider: Liz Garcia, RN) senna (Senokot) tablet 17.2 mg 17.2 mg (2 tablet), Oral, Nightly, First dose on 09/21/24 at 0010, Until Discontinued, Routine 0035 (Given - Provider: Cecille Watkins)2019 (Given - Provider: Rani Deutsch RN) 2012 (Given - Provider: Liz Garcia, GALINA) sodium chloride 0.9 % flush 10 mL(Linked Group 1) 10 mL, Intravenous, Every 12 hours, First dose on 09/21/24 at 0010, Until Discontinued, Routine 003 (Given - Provider: Cecille Watkins)1145 (Not Given - Provider: Mallorie Thomas RN - Reason: Order parameters not met - Comment: IV previously flushed) 001 (Given - Provider: Rani Deutsch RN)1819 (Not Given - Provider: Spencer Tavera RN - Reason: Patient/family refused)2336 (Given - Provider: Liz Garcia, GALINA) 1123 (Given - Provider: Dara Armendariz, RN) PRN Medication Order 09/21/2024 09/22/2024 09/23/2024 acetaminophen (Tylenol) tablet 650 mg 650 mg, Oral, Every 6 hours PRN, Starting on 09/21/24 at 2022, Until 09/23/24 at 1728, Routine, mild pain 2029 (Given - Provider: Rani Deutsch RN) 020 (Given - Provider: Rani Deutsch RN)232 (Given - Provider: Liz Garcia RN) 0844 (Given - Provider: Dara Armendariz RN) ipratropium-albuterol (Duo-Neb) 0.5-2.5 mg/3 mL nebulizer solution 3 mL 3 mL, Nebulization, Every 6 hours PRN, Starting on 09/21/24 at 0006, Until 09/23/24 at 1728, Routine, wheezing, shortness of breath ondansetron (Zofran) 4 MG/5ML solution 4 mg(Linked Group 2) 4 mg, Oral, Every 6 hours PRN, Starting on 09/21/24 at 0006, Until 09/23/24 at 1728, Routine, nausea, vomiting 0043 (See Alternative - Provider: Cecille Watkins) 1054 (See Alternative - Provider: Spencer Tavera, RN)2012 (See Alternative - Provider: Liz Garcia, RN) ondansetron (Zofran) injection 4 mg(Linked Group 2) 4 mg, Intravenous, Every 6 hours PRN, Starting on 09/21/24 at 0006, Until 09/23/24 at 1728, Routine, vomiting, nausea 0043 (Given - Provider: Cecille Watkins) 1054 (See Alternative - Provider: Spencer Tavera, GALINA)2012 (See Alternative - Provider: Liz Garcia, RN) ondansetron ODT (Zofran-ODT) disintegrating tablet 4 mg(Linked Group 2) 4 mg, Oral, Every 6 hours PRN, Starting on 09/21/24 at 0006, Until 09/23/24 at 1728, Routine, nausea, vomiting 0043 (See Alternative - Provider: Cecille Watkins) 1054 (Given - Provider: Spencer Tavera, GALINA)2012 (Given - Provider: Liz Garcia, RN) sodium chloride 0.9 % flush 10 mL(Linked Group 1) 10 mL, Intravenous, As needed, Starting on 09/21/24 at 0006, Until 09/23/24 at 1728, Routine, line care Linked Groups Order Group 1: Insert peripheral IV (CANCELED) Once, On 09/21/24 at 0007, For 1 occurrence And Saline lock IV (CANCELED) Once, On 09/21/24 at 0007, For 1 occurrence And sodium chloride 0.9 % flush 10 mLJump to med 10 mL, Intravenous, Every 12 hours, First dose on 09/21/24 at 0010, Until Discontinued, Routine And sodium chloride 0.9 % flush 10 mLJump to med 10 mL, Intravenous, As needed, Starting on 09/21/24 at 0006, Until 09/23/24 at 1728, Routine, line care Group 2: ondansetron ODT (Zofran-ODT) disintegrating tablet 4 mgJump to med 4 mg, Oral, Every 6 hours PRN, Starting on 09/21/24 at 0006, Until 09/23/24 at 1728, Routine, nausea, vomiting Or ondansetron (Zofran) injection 4 mgJump to med 4 mg, Intravenous, Every 6 hours PRN, Starting on 09/21/24 at 0006, Until 09/23/24 at 1728, Routine, vomiting, nausea Or ondansetron (Zofran) 4 MG/5ML solution 4 mgJump to med 4 mg, Oral, Every 6 hours PRN, Starting on 09/21/24 at 0006, Until 09/23/24 at 1728, Routine, nausea, vomiting documented in this encounter Additional Health Concerns Assessment Noted Time PHQ-9 Depression Total Score: 0 08/15/19 9:58 AM EST A fall risk assessment has been complete d for the patient 08/14/2024 9:58 AM EST A Body Mass Index follow-up plan has been documented for the patient 09/23/2024 1:56 PM EDT documented as of this encounter Care Teams Financial Management Relationship Specialty Start Date End Date Luis Hatfield MD [address] [place] [address] PCP - General 07/24/24 documented as of this encounter
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
--- OUTSIDE RECORDS SUMMARY | 2024-10-09 11:30 | XMS_ITS | Encounter Summary ---
Author Organization [facility] Address [address] [place] [address] Care Team Providers Care Signal Person Name Role Phone Luis Hatfield MD Primary Care Provider [phone] Reason for Referral * Imaging (Routine) - Pending Review Specialty Diagnoses / Procedures Referred By Stephen parks Referred To Contact Radiology Diagnoses Malignant neoplasm of urinary bladder, unspecified site (CMS/HCC) Procedures IR Nephrostomy Tube Exchange Kristen Bryant APRN [address] [place] [address] Phone: tel: fax: Referral ID Status Reason Start Date Expiration Date V isits Requested Visits Authorized [id number] Pending Review 10/09/2024 04/10/2026 1 1 Reason for Visit * Consultation (Routine) - Closed Specialty Diagnoses / Procedures Referred By Contact Referred To Contact Interventional Radiology Diagnoses Malignant neoplasm of urinary bladder, unspecified site (CMS/HCC) Pankaj Robles MD [address] [place] [address] Phone: tel:[phone] fax:[phone] V[facility] Interventional Radiology [address] [place] [address] Phone: tel: Referral ID Status Reason Start Date Expiration Date V isits Requested Visits Authorized [id number] Closed Specialty Services Required 09/12/2024 03/14/2026 1 1 Encounter Details Date Type Department Care Team (Latest Contact Info) Description 10/09/2024 11:30 AM EDT Office Visit [facility] Vascular Interventional Radiology [address] [place] [address] Kristen Bryant, SALESPERSON SHEET MUSIC [address] [place] [address] Malignant neoplasm of urinary bladder, unspecified site (CMS/HCC) (Primary Dx); Bilateral hydronephrosis Social History Tobacco Use Types Packs/Day Years Used Date Smoking Tobacco: Former Cigarettes 0.1 51.4 S tarted: 1974 Smokeless Tobacco: Never Tobacco Cessation:Counseling Given: Not Answered Alcohol Use Standard Drinks/Week Comments Never 0 [...] Date Recorded Patient Health Questionnaire-2 Score 0 10/09/2024 Hunger Vital Sign Answer Date Recorded Within [...] Date Recorded Patient Health Questionnaire-9 Score 0 10/09/2024 Housing Stability Vital Sign Answer Sigifredo e Recorded In the last 12 months, was t here a time when you were not able to pay the mortgage or rent on time? No 09/23/2024 In the past 12 months, how m any times have you moved where you were living? 0 09/23/2024 At any time in the past 12 m [facility], were you homeless or living in a group home (including now)? No 09/23/2024 CAGE ASSESSMENT Answer [...] drink first t kimberlyn in the morning (EYE-LENS BLOCK GAUGER) to steady your nerves or to get rid of a hangover? 0 09/11/2024 CAGE Questionnaire Score 0 025 Utilities Answer Date Recorded In the past 12 months has th e electric, gas, oil, or water company threatened to [...] Sign Reading Time Taken Comments Blood Pressure 118/73 10/09/2024 11:13 AM EDT Pulse 107 10/09/2024 11:13 AM EDT Temperature 36.6 C (97.8 F) 10/09/2024 11:13 AM EDT Respiratory Rate - - Oxygen Saturation 91% 10/09/2024 11:13 AM EDT Inhaled Oxygen Concentration - - Weight 73.5 kg (162 lb 0.6 oz) 10/09/2024 11:13 AM EDT Height 157.5 cm (5' 2.01 ) 10/09/2024 11:13 AM E DT Body Mass Index 29.63 10/09/2024 11:13 AM EDT documented in this encounter Functional Status * Over the past 2 weeks, how often have you been bothered by any of the following problems? Question Answer Date of Assessment Author Little interest or pleasure in doing things Not at all 10/09/2024 12:34 PM SHIVANIT Rebecca Bocanegra Feeling down, depressed, or hopeless Not at all 10/09/2024 12:34 PM Rebecca Freitas Patient Health Questionnaire -2 Score 0 10/09/2024 12:34 PM SHIVANIT Rebecca Bocanegra A * Question Answer Date of Assessment Author Trouble falling or staying asleep, or sleeping too much Not at all 10/09/2024 12:34 PM SHIVANIT Rebecca Olmos A Feeling tired or having darek le energy Not at all 10/09/2024 12:34 PM Rebecca Freitas A Poor appetite or overeating Not at all 10/09/2024 12 :34 PM Rebecca Freitas A Feeling bad about yourself - or that you are a failure or have let yourself or your family down Not at all 10/09/2024 12:34 PM Rebecca Freitas Trouble concentrating on things, such as reading the newspaper or watching television Not at all 10/09/2024 12:34 PM Rebecca Freitas Moving or speaking so slowly that other people could have noticed? Or the opposite - being so fidgety or restless that you have been moving around a lot more than usual. Not at all 10/09/2024 12:34 PM Rebecca Reed Thoughts that you would be better off or hurting yourself in some way Not at all 10/09/2024 12:34 PM Maco Freitas Patient Health Questionnaire -9 Score 0 10/09/2024 12:34 PM Rebecca Freitas * If you checked off any problems on this questionnaire so far, Question Answer Date of Assessment Author How difficult have these problems made it for you to do your work, take care of things at home, or get along with other people? Not difficult at all 10/09/2024 12:34 PM EDT Maco Bocanegra documented as of this encounter Miscellaneous Notes * Progress Notes - Kristen Bryant, [employer]ESPERSON [employer] - 10/09/2024 11:30 AM EDT Images from the original note were not included. Yaima Pritchard presents today for consultation as requested by Pankaj Robles MD, regarding follow up after BL PCNT placement. Subjective History of Present Illness: HPI Yaima Pritchard is a 69 y.o. female who presents today to [facility] clinic for follow up after BL PCNT placement. Patient with metastatic bladder cancer s/p TURBT and R stent placement 07/23/24. Per chart review, patient presented to [facility] with worsening renal function with Cr 3.8 (baseline 1.4). CT A/P from 09/11 with bilateral, mild hydronephrosis. [facility] placed BL PCNT on 09/12 (8 Fr). Patient was planned to start systemic treatment. On evaluation today, patient is without acute complaints. She hopes these drains will not be supervisor long goods. Denies issues with flushing drains such as pericatheter leaking or resistance. Has experienced intermittent hematuria on right side. Denies trauma to tubes or abdominal/flank pain. Denies recent fevers/chills. Allergies: Codeine Medications: Current Medications[1] Past Surgical History: Yaima has a past surgical history that includes Cholecystectomy (N/A) and Neck surgery (N/A). Past Medical History: She has a past medical history of Hypertension, Lupus (systemic lupus erythematosus) ([facility]/HCC), Other specified fracture of unspecified pubis, initial encounter for closed fracture ([facility]), Other specified health status, Personal history of other diseases of the circulatory system, and Wedge compr ession fracture of unspecified lumbar vertebra, initial encounter for closed fracture ([facility]). Past Family History: Herfamily history is not on file. Past Social History: She reports that she has quit smoking. Her smoking use included cigarettes. She started smoking about 51 years ago. She has a 5.1 pack-year smoking history. She has never used smokeless tobacco. She reports that she does not drink alcohol and does not use drugs. Review of Systems: 14 point ROS negative except for above. Objective Physical Exam: Vitals: 10/09/24 1113 BP: 118/73 Pulse: 107 Temp: 36.6 ??C (97.8 ??F) SpO2: 91% Physical Exam GENERAL: No acute distress EYES: No scleral icterus or conjunctivitis HENT: Atraumatic, normocephalic RESP/CHEST: Symmetric expansion; non labored. CARD: regular rate and rhythm Extremities: No edema, no cyanosis or clubbing. GI: No organomegaly or masses. Soft, Nontender, nondistended. : BL PCNT in place SKIN: No rash, sores, lesions or subcutaneous nodules. NEURO: Alert Imaging: IR Nephrostomy Tube Placement Narrative: CLINICAL INDICATION: Yaima Pritchard is a is a 69 y.o. female with a past medical history of bladder cancer s/p TURBT and R stent placement 07/23/24 who presented for with worsening renal function, in the setting of active chemotherapy regimen. CT abdomen pelvis 09/11/24 showing bilateral hydronephrosis. IR consulted for bl nephrostomy tube placement. TECHNIQUE: Activities Leader: Tobias Mckeon MD Secondary Product Development Ecologist: Amilcar Hawley MD Rad Dose: 73 mGy Medications: IV conscious sedation with continuous physiologic monitoring provided by a qualified healthcare professional using Versed 2 mg IV and Fentanyl 100 mcg IV. 1% Lidocaine SQ. Antibiotics: Rocephin 1 g given intravenously perioperatively. Duration of Conscious Sedation: Time out: 1046 close out: 11:30 Procedure: The patient was identified. After the risks and benefits of the procedure were discussed with the patient, an informed written consent was obtained. The patient was then brought back to interventional suite and placed prone on the table. A time out was performed. The patient was then prepped and draped in the normal sterile fashion. Left Kidney: Under ultrasound guidance, a 22-gauge Chiba needle was advanced into a lower pole calyx. Ultrasoundimages were sent to permanent storage in PACS. Contrast instilled and fluoroscopic imaging confirmed placement within a lower pole calyx of the left kidney. A 0.018 inch Nitinol wire was advanced into the renal pelvis and subsequently into the left ureter. An AccuStick sheath was advanced. The metal stiffener as well as inner dilator of the AccuStick sheath were removed a long with the Nitinol wire and a 0.035 inch Amplatz wire was advanced into the left ureter. The AccuStick sheath was removed. An 8 Russian percutaneous nephrostomy tube was advanced over the wire and the wire removed. Contrast instillation demonstrates the tip of the nephrostomy tube to be within the ureter at this point. The nephrostomy tube was retracted such that the pigtail to be formed and locked within the renal pelvis. Repeat contrast instillation demonstrates good positioning of the pigtail. The pigtail catheter was secured to the skin with 2-0 silk suture. The pigtail drainage catheter was left to gravity drainage. Right Kidney: Under ultrasound guidance, a 22-gauge Chiba needle was advanced into a lower pole calyx. Contrast instilled and fluoroscopic imaging confirmed placement within a lower pole calyx of the right kidney.A 0.018 inch Nitinol wire was advanced into the renal pelvis and subsequently into the left ureter.An AccuStick sheath was advanced. The metal stiffener as well as inner dilator of the AccuStick sheath were removed a long with the Nitinol wire and a 0.035 inch Amplatz wire was advanced into the left ureter. The AccuStick sheath was removed. An 8 Russian percutaneous nephrostomy tube was advanced over the wire and the wire removed. Contrast instillation demonstrates the tip of the nephrostomy tube to be within the ureter at this point. The nephrostomy tube was retracted such that the pigtail to be formed and locked within the renal pelvis. Repeat contrast instillation demonstrates good positioning of the pigtail. The pigtail catheter was secured to the skin with 2-0 silk suture. The pigtail drainage catheter was left to gravity drainage. There were no immediate complications. The patient tolerated the procedure well. COMPARISON: CT abdomen and pelvis without contrast FINDINGS: Bilateral hydronephrosis. Right double-J stent with occlusion along the mid ureter. Free spillage of contrast from the left ureter into the urinary bladder. COMPLICATION: No. Impression: Successful placement of 8 Russian locking pigtails bilateral nephrostomy tubes. PLAN: Routine sedation recovery. Flush nephrostomy tubes with 10 cc of normal saline twice a day while inpatient, once daily as outpatient. Nephrostomy tubes should be exchanged every 10-12 weeks. CRITICAL RESULT: No. COMMUNICATION: Per this written report. Drafted by Tobias Mckeon MD on 09/12/2024 1:18 PM Final report signed by Tobias Mckeon MD on 09/12/2024 1:21 PM Labs: Lab Results Component Value Date WBC 14.96 (H) 09/20/2024 HGB 10.1 (L) 09/20/2024 HCT 30.2 (L) 09/20/2024 PLT 513 (H) 09/20/2024 Lab Results Component Value Date NA 137 09/21/2024 K 4.6 09/21/2024 CL 99 09/21/2024 CO2 25 09/21/2024 BUN 25 (H) 09/21/2024 CREATININE 1.25 (H) 09/21/2024 GLUCOSE 123 (H) 09/21/2024 Lab Results Component Value Date CALCIUM 10.0 09/21/2024 MG 2.6 (H) 09/21/2024 PHOS 3.3 09/21/2024 Lab Results Component Value Date AST 16 09/21/2024 ALT 8 (L) 09/21/2024 ALKPHOS 88 09/21/2024 Lab Results Component Value Date APTT 26 07/22/2024 INR 1.3 (H) 09/12/2024 Assessment/Plan Medical Decision Making/Plan: Metastatic urothelial carcinoma S/p TURBT Bilateral hydronephrosis s/p BL PCNT Intermittent hematuria - Personally reviewed CT A/P from 09/20/24 with resolution of BL hydronephrosis; PCNT in appropriate position - VIR placed BL 8 Fr PCNT on 09/12 - Patient follows with Urology and medical oncology here at - Cr now at baseline, 1.25 (09/21/24) - Has right ureteral stent per urology - Plans to initiate systemic therapy tomorrow - Has home health caring for PCNTs - Notices intermittent hematuria on right; likely related to indwelling stent also occupying space in renal pelvis PLAN: - Orders placed for routine PCNT exchange in 12 weeks per protocol - Has follow up with Urology today - Dressing changed in clinic today Diagnoses and all orders for this visit: Malignant neoplasm of urinary bladder, unspecified site (CMS/HCC) - Discharge Ambulatory referral to [facility] Clinic - IR Nephrostomy Tube Exchange; Future Bilateral hydronephrosis I spent >45 minutes on this encounter; including preparing to see the patient, which involved review/interpretation of diagnostics and reports; obtaining and/or reviewing separately obtained history; performing appropriate physical exam; communicating finding, reviewing labs/imaging, counseling/educating the patient; documentation in EMR; and formulating subsequent treatment plan. Thank you for allowing me to participate in the care of Yaima Pritchard. Kristen Bryant APRN Vascular & Interventional Radiology [1] Current Outpatient Medications: buPROPion (Wellbutrin) 75 MG tablet, Take 1 tablet by mouth in the morning and 1 tablet before bedtime., Disp: , Rfl: Ferrous Sulfate (IRON PO), Take 1 tablet by mouth daily., Disp: , Rfl: hydroxychloroquine (Plaquenil) 200 MG [...] tablet by mouth nightly., Disp: , Rfl: dexamethasone (Decadron) 4 MG tablet, Take 2 tablets by mouth in the morning and 2 tablets in the evening. Take with meals. For 3 days , starting day after Chemo , for 6 cycles . ., Disp: , Rfl: sodium chloride 0.9 % flush, Infuse 10 mL into a venous catheter as needed for line care for up to 50 doses. Infuse as needed for percutaneous nephrostomy tube, Disp: 500 mL, Rfl: 0 Turmeric (QC TUMERIC COMPLEX PO), Take 1 tablet by mouth in the morning. (Patient not taking: Reported on 10/09/2024), Disp: , Rfl: documented in this encounter Plan of Treatment Upcoming Encounters Date Type Department Care Team (Late st Contact Info) Description 01/08/2025 9:30 AM EDT Appointment [facility] Interventional Radiology [address] [place] [address] 01/15/2025 4:30 PM EDT Office Visit [facility] [address] [place] [address] Ochoa Matias MD [address] [place] [address] Scheduled Orders Name Type Priority Associated Diagnoses Orde r Schedule IR Nephrostomy Tube Exchange Imaging Routine Malignant neoplasm of urinary bladder, unspecified site (CMS/HCC) Expected: 01/08/2025, Expires: 10/09/2025 documented as of this encounter Visit Diagnoses Diagnosis Malignant neoplasm of urinary bladder, unspecified site (CMS/HCC)- Primary Bilateral hydronephrosis Hydronephrosis documented in this encounter Additional Health Concerns Assessment Noted Time PHQ-9 Depression Total Score: 0 10/10/19 12:34 PM EDT A fall risk assessment has been complete d for the patient 10/09/2024 12:34 PM EDT A Body Mass Index follow-up plan has been documented for the patient 10/15/2024 6:56 AM EDT documented as of this encounter Care Teams Signal Person Relationship Specialty Start Date End Date Luis Hatfield MD [address] [place] [id number] PCP - General 07/24/24 documented as of this encounter
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
[2024-11-21 09:24] VITALS: BMI 28.7
--- OUTSIDE RECORDS SUMMARY | 2024-11-21 09:30 | XMS_ITS | Encounter Summary ---
Author Organization Healthcare Address [address] [place] [address] Care Team Providers Care Credit Collection Specialist Name Role Phone Luis Hatfield MD Primary Care Provider [phone] Reason for Visit * Reason Onset Date Comments [facility] 10/24/2024 Encounter Details Date Type Department Care Team (Late st Contact Info) Description 10/24/2024 Telephone [facility] [address] [place] [address] Ochoa Matias MD [address] [place] [address] [facility] Social History Tobacco Use Types Packs/Day Years Used Date Smoking Tobacco: Former Cigarettes 0.1 51.4 S tarted: 1974 Smokeless Tobacco: Never Alcohol Use Standard Drinks/Week [...] any time in the past 12 m [facility], were you homeless or living in a snf (including now)? No 09/23/2024 CAGE ASSESSMENT Answer [...] drink first t kimberlyn in the morning (EYE-MANAGER AEROSPACE) to steady your nerves or to get [...] PM EST documented as of this encounter Miscellaneous Notes * Telephone Encounter - Phyllis Burgess - 10/31/2024 10:03 AM EDT Month 1 Attempt 3: Care Guide (CG) called patient (pt) at . No answer. LVM. * Telephone Encounter - Phyllis Burgess - 10/28/2024 4:24 PM EDT Month 1 Attempt 2: Care Guide (CG) called patient (pt) at . No answer. LVM. CG will attempt again. * Telephone Encounter - Phyllis Burgess - 10/24/2024 10:55 AM EDT Month 1 Attempt 1: Care Guide (CG) called patient (pt) at . No answer. LVM. CG will attempt again. documented in this encounter Plan of Treatment Upcoming Encounters Date Type Department Care Team (Late st Contact Info) Description 01/08/2025 9:30 AM EDT Appointment [facility] Interventional Radiology [address] [place] [address] 01/15/2025 4:30 PM EDT Office Visit [facility] [address] [place] [address] Ochoa Matias MD [address] [place] [address] documented as of this encounter Visit Diagnoses Not on filedocumented in this encounter Additional Health Concerns Assessment Noted Time PHQ-9 Depression Total Score: 0 10/10/19 12:34 PM EDT A fall risk assessment has been complete d for the patient 10/09/2024 12:34 PM EDT A Body Mass Index follow-up plan has been documented for the patient 10/15/2024 6:56 AM EDT documented as of this encounter Care Teams Credit Collection Specialist Relationship Specialty Start Date End Date Luis Hatfield MD [address] [place] [address] PCP - General 07/24/24 documented as of this encounter
--- OUTSIDE RECORDS SUMMARY | 2024-11-21 09:30 | XMS_ITS | Encounter Summary ---
Author Organization [facility] Address [address] [place] [address] Care Team Providers Care Ballistic Expert Name Role Phone Luis Hatfield MD Primary Care Provider [phone] Encounter Details Date Type Department Care Team (Late st Contact Info) Description 09/20/2024 Orders Only External Location [address] [place] [address] Provider, External Social History Tobacco Use Types Packs/Day Years [...] any time in the past 12 m [facility], were you homeless or living in a longterm (including now)? No 09/23/2024 CAGE ASSESSMENT Answer [...] drink first t kimberlyn in the morning (EYE-ENVIRONMENTAL SERVICES DIRECTOR) to steady your nerves or to get [...] PM EST documented as of this encounter Functional Status * Calculated C-SSRS [...] Armendariz RN documented as of this encounter Plan of Treatment Upcoming Encounters Date Type Department Care Team (Late st Contact Info) Description 01/08/2025 9:30 AM EDT Appointment [facility] Interventional Radiology [address] [place] [address] 01/15/2025 4:30 PM EDT Office Visit [facility] [address] [place] [address] Ochoa Matias MD [address] [facility] [address] [place] [address] documented as of this encounter Procedures Procedure Name Priority Date/Time Associated Diagnosis Comments CT NEURO OUTSIDE IMAGES 09/20/2024 12:27 PM EDT documented in this encounter Results * CT NEURO OUTSIDE IMAGES (09/20/2024 12:27 PM EDT) Anatomical Region Laterality Modality Computed Tomogra phy 09/20/2024 12:2 7 PM EDT us External Provider IMG CT PROCEDURES Final Result documented in this encounter Visit Diagnoses Not on filedocumented in this encounter Additional Health Concerns Assessment Noted Time PHQ-9 Depression Total Score: 0 08/15/19 9:58 AM EST A fall risk assessment has been complete d for the patient 08/14/2024 9:58 AM EST A Body Mass Index follow-up plan has been documented for the patient 09/23/2024 1:56 PM EDT documented as of this encounter Care Teams Ballistic Expert Relationship Specialty Start Date End Date Luis Hatfield MD [address] [place] [id number] PCP - General 07/24/24 documented as of this encounter
--- OUTSIDE RECORDS SUMMARY | 2024-11-21 09:30 | XMS_ITS | Encounter Summary ---
Author Organization [facility] Address [address] [place] [address] Care Team Providers Care Mental Health Specialist Name Role Phone Luis Hatfield MD Primary Care Provider [phone] Encounter Details Date Type Department Care Team (Late st Contact Info) Description 09/20/2024 Orders Only External Location [address] [place] [address] Provider, External Social History Tobacco Use Types [...] any time in the past 12 m [facility], were you homeless or living in a jail (including now)? No 09/23/2024 CAGE ASSESSMENT Answer [...] drink first t kimberlyn in the morning (EYE-EDUCATION PROGRAM ASSOCIATE) to steady your nerves or to get [...] Appointment [facility] Interventional Radiology [address] [place] [address] 01/15/2025 4:30 PM EDT Office Visit [facility] [address] [place] [address] Ochoa Matias MD [address] [facility] [address] [place] [address] documented as of this encounter Procedures Procedure Name Priority Date/Time Associated Diagnosis Comments CT THORACIC OUTSIDE IMAGES 09/20/2024 12:35 PM EDT documented in this encounter Results * CT THORACIC OUTSIDE IMAGES (09/20/2024 12:35 PM EDT) Anatomical Region Laterality Modality Computed Tomogra phy 09/20/2024 12:3 5 PM EDT us External Provider IMG CT [...] documented as of this encounter Care Teams Mental Health Specialist Relationship Specialty Start Date End Date Luis Hatfield MD [address] [place] [id number] PCP - General 07/24/24 documented as of this encounter
--- OUTSIDE RECORDS SUMMARY | 2024-11-21 09:30 | XMS_ITS | Encounter Summary ---
Author Organization [facility] Address [address] [place] [address] Care Team Providers Care Ordnance Artificer Name Role Phone Luis Hatfield MD Primary Care Provider [phone] Encounter Details Date Type Department Care Team (Late st Contact Info) Description 09/20/2024 Orders Only External Location [address] [place] [address] Provider, External Social History Tobacco Use Types [...] any time in the past 12 m [facility], were you homeless or living in a fdc (including now)? No 09/23/2024 CAGE ASSESSMENT Answer [...] drink first t kimberlyn in the morning (EYE-MENTAL HEALTH ASSOCIATE) to steady your nerves or to [...] Appointment [facility] Interventional Radiology [address] [place] [address] 01/15/2025 4:30 PM EDT Office Visit [facility] [address] [place] [address] Ochoa Matias MD [address] [facility] [address] [place] [address] documented as of this encounter Procedures Procedure [...] documented as of this encounter Care Teams Ordnance Artificer Relationship Specialty Start Date End Date Luis Hatfield MD [address] [place] [id number] PCP - General 07/24/24 documented as of this encounter
--- OUTSIDE RECORDS SUMMARY | 2024-11-21 09:30 | XMS_ITS | Data Portability ---
Author Organization Formerly [facility] Address [address] [place] [address] Care Team Providers Care Student Development Coordinator Name Role Phone DENA HERNANDEZ Primary Care Provider Assessment Encounter Date Assessment Date Assessment LastModified by Organization Details LastModified Time 10/09/2020 10/09/2020 Annual gynecological exam performed. Patient will come back in a year unless there are new symptoms. Not available 10/06/2020 11:05:40 11/24/2021 11/24/2021 Annual gynecological exam performed. Patient will come back in a year unless there are new symptoms. Not available 11/22/2021 14:50:09 Plan of Treatment Reminders Order Date Submit Date Provider Last Modified By Organization Details Last Modified Time Details Appointments None recorded. Lab cytology report, thin prep, smear or scraping, cervical or vaginal 2021 022 [facility], [address], [address], [place], [address], 2 04:19:41 pathology study - ECC, 3pm ecto Cervix 2020 021 ISAI [facility], [address], [place] [address], [place], [address], 1 13:08:46 pap, IG + HPV 2019 021 ISAI [facility], [address], [address], [place], [address], 1 16:12:16 urinalysis, dipstick 2020 021 ISAI [facility], [address], [address], [place], [address], 1 08:09:55 culture, urine 2020 021 ISAI [facility], [address], [address], [place], [address], 1 08:09:56 pap, IG + HPV 2019 020 ISAI [facility], [address], [address], [place], [address], 0 20:08:32 Referral None recorded. Procedures None recorded. Surgeries None recorded. Imaging LDCT, chest, for lung cancer screening - last LDCT 11/24/20 [facility] 2021 022 [facility] (Scheduling), [address], [place], [address], 3 10:18:56 MAMMO, diagnostic, digital, bilateral 2021 022 [facility] (Scheduling), [address], [place], [address], 2 14:54:58 DEXA, vertebral fracture assessment 2021 022 [facility] (Scheduling), [address], [place], [address], 3 11:24:25 MAMMO, screening, digital, bilateral 2019 020 [facility] (Scheduling), [address], [place], [address], 1 09:45:02 LDCT, chest, for lung cancer screening 2019 021 [facility] (Scheduling), [address], [place], [address], 1 10:07:32 LDCT, chest, for lung cancer screening 2019 020 [facility] (Scheduling), [address], [place], [address], 0 11:16:35 CT, abdomen + pelvis, w/wo contrast 2019 020 [facility] (Scheduling), [address], [place], [address], 0 15:50:03 US, transvagina l 2019 020 [facility] [employer], [address] [place], [place] [address], [place], [address], 0 12:28:27 Medication Orders F[facility]amax 70 mg tablet 2021 [facility]22 [id number] [address] [facility] [address] [place], [id number], 2 17:35:13 alendronate 35 mg tablet [address] [place] [address] [address] [facility]29429, [address] [facility] [address] [place], [id number], 2 11:03:04 Premarin 0.625 mg/gram vaginal cream [address] [facility] [address], [place], [address], 2 11:03:27 Patient TargetsNo targets recorded. Patient Instructions Encounter Date Encounter Id Patient Instructions Last Modified By Organization Details Last Modified Time 10/09/2020 [id number] medical record request* - please send copy of colonoscopy and pathology 2020 Not available 12/18/2020 16:46:06 A healthy lifestyle: care instructions lshower Not available 10/09/2020 16:31:48 body mass index: care instructions lshower Not available 10/09/2020 16:31:48 learning about healthy weight lshower Not available 10/09/2020 16:31:48 11/12/2020 [id number] Will await pathology samples. Barring any unexpected high-grade changes, probably can modify plan to 1 more year expectant management as she had had diagnostic LEEP showing only HPV changes 08 29 20-was thinking she had not had initial LEEP yet when plan for LEEP follow-up was made leaving today. Can probably modify to 6 months Pap/HPV. I am fairly sure she will have persistent unsatisfactory colposcopy and even inadequate Pap testing with cervical stenosis following initial LEEP lshower Not available 11/12/2020 19:29:30 11/24/2021 [id number] learning about healthy weight lshower Not available 11/24/2021 17:35:13 body mass index: care instructions lshower Not available 11/24/2021 17:35:13 A healthy lifestyle: care instructions lshower Not available 11/24/2021 17:35:13 Reason for Referral None Reported. Results Created Date Observation Date Name Description Value Unit Range Abnormal Flag Note LastModifiedBy Organization Detail LastModifiedTime 02/20/20 20 02/24/2020 pap, IG + HPV HPV, high-risk Positi ve negati ve abnormal This nucle ic acid ampli ficat ion high- risk HPV test detec ts thirt een high- risk types (16,1 8,31, 33,35 ,39,4 5,51, 52,56 ,58,5 9,68) witho ut diffe renti ation . Not Available [facility] ([facility]) [address], [place], [address], 02/25/2020 20:08:32 02/20/2002/25/2020 pap, IG + HPV diagnosis: Commen t abnormal EPITH ELIAL CELL ABNOR MALIT Y. ATYPI FLOYD SQUAM OUS CELLS OF UNDET ERMIN ED SIGNI FICAN CE (ASC- US). Not Available [facility] ([facility]) [address], [place], [address], 02/25/2020 20:08:32 02/20/20 20 02/25/2020 pap, IG + HPV specimen adequacy: Briseyda parks Satis facto ry for evalu ation . Endoc ervic al and/o r squam ous metap lasti c cells (endo cervi floyd compo nent) are prese nt. Not Available [facility] ([facility]) [address] [place], [address], 02/25/2020 20:08:32 02/20/20 20 02/25/2020 pap, IG + HPV clinician provided ICD10: Briseyda parks R87.8 10 Not Available [facility] ([facility]) [address] [place], [address], 02/25/2020 20:08:32 02/20/20 20 02/25/2020 pap, IG + HPV performed by: Briseyda sloan, Cytot echno logis t (ASCP ) Not Available [facility] ([facility]) [address] [place], [address], 02/25/2020 20:08:32 02/20/20 20 02/25/2020 pap, IG + HPV electronical ly signed by: Briseyda Anders MD, Patho logis t Not Available [facility] ([facility]) [address] [place], [address], 02/25/2020 20:08:32 02/20/20 20 02/25/2020 pap, IG + HPV . . Not Available [facility] ([facility]) [address] [place], [address], 02/25/2020 20:08:32 02/20/20 20 02/25/2020 pap, IG + HPV pathologist provided ICD10: Briseyda parks R87.6 10 Not Available [facility] ([facility]) [address] [place], [address], 02/25/2020 20:08:32 02/20/20 20 02/25/2020 pap, IG + HPV note: Commmary t The Pap smear is a scree amira test desig trell to aid in the detec tion of ibeth ligna nt and malig nant condi tions of the uteri ne cervi x. It is not a diagn ostic proce dure and shoul d not be used as the sole means of detec ting cervi floyd cance r. Both false -posi tive and false -nega tive repor ts do occur . Not Available [facility] ([facility]) [address], [place], [address], 02/25/2020 20:08:32 02/20/20 20 02/25/2020 pap, IG + HPV test methodology: Briseyda t This liqui d based ThinP rep(R ) pap test was scree trell with the use of an image guide divya bedolla Not Available [facility] ([facility]) [address], [place], [address], 02/25/2020 20:08:32 10/10/1910/10/2020 urina lysis , dipst ick specific gravity 1.006 1.005- 1.030 Not Available [facility] ([facility]) [address] [place], [address], 10/11/2020 08:09:55 10/10/19 21 10/10/2020 urina lysis , dipst ick pH 6.0 5.0-7. 5 Not Available [facility] ([facility]) [address] [place], [address], 10/11/2020 08:09:55 10/10/19 21 10/10/2020 urina lysis , dipst ick urine-color Yellow yellow Not Available [facility] ([facility]) [address] [place], [address], 10/11/2020 08:09:55 10/10/19 21 10/10/2020 urina lysis , dipst ick appearance Clear clear Not Available [facility] ([facility]) [address] [place], [address], 10/11/2020 08:09:55 10/10/19 21 10/10/2020 urina lysis , dipst ick WBC esterase Negati ve negati ve Not Available [facility] ([facility]) [address] [place], [address], 10/11/2020 08:09:55 10/10/19 21 10/10/2020 urina lysis , dipst ick protein Negati ve negati ve/tra ce Not Available [facility] ([facility]) [address] [place], [address], 10/11/2020 08:09:55 10/10/19 21 10/10/2020 urina lysis , dipst ick glucose Negati ve negati ve Not Available [facility] ([facility]) [address] [place], [address], 10/11/2020 08:09:55 10/10/19 21 10/10/2020 urina lysis , dipst ick ketones Negati ve negati ve Not Available [facility] ([facility]) [address] [place], [address], 10/11/2020 08:09:55 10/10/19 21 10/10/2020 urina lysis , dipst ick occult blood Negati ve negati ve Not Available [facility] ([facility]) [address] [place], [address], 10/11/2020 08:09:55 10/10/19 21 10/10/2020 urina lysis , dipst ick bilirubin Negati ve negati ve Not Available [facility] ([facility]) [address] [place], [address], 10/11/2020 08:09:55 10/10/19 21 10/10/2020 urina lysis , dipst ick urobilinogen ,semi-qn 0.2 mg/dL 0.2-1. 0 Not Available [facility] ([facility]) [address], [place], [address], 10/11/2020 08:09:55 10/10/19 21 10/10/2020 urina lysis , dipst ick nitrite, urine Negati ve negati ve Not Available [facility] ([facility]) [address], [place], [address], 10/11/2020 08:09:55 10/10/19 21 10/10/2020 urina lysis , dipst ick microscopic examination Commen t Micro scopi c not indic ated and not perfo rmed. Not Available [facility] ([facility]) [address], [place], [address], 10/11/2020 08:09:55 10/10/19 21 10/11/2020 cultu re, urine urine culture, routine Final report Not Available [facility] ([facility]) [address], [place], [address], 10/11/2020 08:09:56 10/10/1910/11/2020 cultu re, urine result 1 No growth Not Available [facility] ([facility]) [address], [place], [address], 10/11/2020 08:09:56 10/10/1910/14/2020 pap, IG + HPV HPV aptima Positi ve negati ve abnormal This nucle ic acid ampli ficat ion test detec ts fourt een high- risk HPV types (16,1 8,31, 33,35 ,39,4 5,51, 52,56 ,58,5 9,66, 68) witho ut diffe renti ation . Not Available [facility] ([facility]) [address], [place], [address], 10/15/2020 16:12:16 10/10/19 21 10/15/2020 pap, IG + HPV diagnosis: Commmayr t abnormal EPITH ELIAL CELL ABNOR MALIT Y. LOW GRADE SQUAM OUS INTRA EPITH ELIAL LESIO N (LSIL ). Not Available [facility] ([facility]) [address] [place], [address], 10/15/2020 16:12:16 10/10/19 21 10/15/2020 pap, IG + HPV recommendati on: Briseyda t abnormal Sugge st follo w up as clini duglas appro priat e. Not Available [facility] ([facility]) [address], [place], [address], 10/15/2020 16:12:16 10/10/19 21 10/15/2020 pap, IG + HPV specimen adequacy: Briseyda t Satis facto ry for abram ivonne . Endoc ervic al and/o r squam ous metap lasti c cells (endo cervi floyd compo nent) are prese nt. Not Available [facility] ([facility]) [address], [place], [address], 10/15/2020 16:12:16 10/10/19 21 10/15/2020 pap, IG + HPV clinician provided ICD10: Briseyda parks R87.8 10 Z12.4 N39.4 6 Not Available [facility] ([facility]) [address] [place], [address], 10/15/2020 16:12:16 10/10/19 21 10/15/2020 pap, IG + HPV performed by: Briseyda Amezcua ond, Cytot jaimie parks (ASCP ) Not Available [facility] ([facility]) [address] [place], [address], 10/15/2020 16:12:16 10/10/19 21 10/15/2020 pap, IG + HPV electronical ly signed by: Briseyda Bermudez MD, Patho fortino t Not Available [facility] ([facility]) [address] [place], [address], 10/15/2020 16:12:16 10/10/19 21 10/15/2020 pap, IG + HPV . . Not Available [facility] ([facility]) [address] [place], [address], 10/15/2020 16:12:16 10/10/1910/15/2020 pap, IG + HPV pathologist provided ICD10: Briseyda parks R87.6 12 Not Available [facility] ([facility]) [address] [place], [address], 10/15/2020 16:12:16 10/10/19 21 10/15/2020 pap, IG + HPV note: Briseyda parks The Pap smear is a scree amira test desig trell to aid in the detec tion of ibeth ligna nt and malig nant condi tions of the uteri ne cervi x. It is not a diagn ostic proce dure and shoul d not be used as the sole means of detec ting cervi floyd cance r. Both false -posi tive and false -nega tive repor ts do occur . Not Available [facility] ([facility]) [address], [place], [address], 10/15/2020 16:12:16 10/10/19 21 10/15/2020 pap, IG + HPV test methodology: Briseyda parks This liqui d based ThinP rep(R ) pap test was scree trell with the use of an image guide divya bedolla Not Available [facility] ([facility]) [address] [place], [address], 10/15/2020 16:12:16 10/10/19 21 10/19/2020 HPV genot ypes 16, 18, 45, unspe cifie d speci men HPV genotype 16 Positi ve negati ve abnormal Not Available [facility] ([facility]) [address] [place], [address], 10/19/2020 20:07:50 10/10/19 21 10/19/2020 HPV genot ypes 16, 18, 45, unspe cifie d speci men HPV genotype 18,45 Negati ve negati ve Not Available [facility] ([facility]) [address] [place], [address], 10/19/2020 20:07:50 10/10/1910/16/2020 pleas e note please note Commen t We have recei aftab your reque st for addit ional testi ng or test verif icati on. You will be notif ied if we are unabl e to proce ss your reque st. Not Available [facility] ([facility]) [address], [place], [address], 10/19/2020 20:07:51 10/10/1910/16/2020 jany en autho rizat ion written authorizatio n Commen t Jany en Autho rizat ion Recei aftab. Autho rizat ion recei aftab from Jany en Reque st 10-16 Logge d by Luisana Farr Not Available [facility] ([facility]) [address] [place], [address], 10/19/2020 20:07:52 11/13/1911/16/2020 patho logy study . Commen t Mater ial submi tted: . PART A: endoc ervix - ENDOC ERVIC AL CURET TAGE PART B: ectoc ervix - ECTOC ERVIC AL BIOPS Y 3:00. Modif iers: 3:00 Not Available [facility] ([facility]) [address] [place], [address], 11/16/2020 13:08:46 11/13/1911/16/2020 patho logy study . Commen t Clini floyd histo ry: . R87.6 22 Not Available [facility] ([facility]) [address], [place], [address], 11/16/2020 13:08:46 11/13/19 21 11/16/2020 patho logy study . Commen t Diagn osis: Part A: ENDOC ERVIC AL CURET TAGE: LOW-G RADE SQUAM OUS INTRA EPITH ELIAL LESIO N (OBI 1). TRANS FORMA TION ZONE NOT REPRE SENTE D. Part B: ECTOC ERVIC AL BIOPS Y 3:00: LOW-G RADE SQUAM OUS INTRA EPITH ELIAL LESIO N (OBI 1). CHRON IC CERVI CITIS . TRANS FORMA TION ZONE NOT REPRE SENTE D. COMME NT: The histo logic featu res of this speci men corre late with patie nt's recen t pap smear . [facility] 11/16 1251 Local Not Available [facility] ([facility]) [address], [place], [address], 11/16/2020 13:08:46 11/13/1911/16/2020 patho logy study . Commen t Tracee brar d: . Yvette Bermudez MD, Patho logis t Not Available [facility] ([facility]) [address], [place], [address], 11/16/2020 13:08:46 11/13/19 21 11/16/2020 patho logy study . Commmary parks Gross descr iptio n: . 2 Conta iners , forma gibson-f illed , label ed with patie nt ident ifica tion. Part A: ENDOC ERVIC AL CURET TAGE: RECEI AFTAB IS AN ENDOC ERVIC AL BRUSH . SCRAP INGS PRODU CE 0.5 X 0.2 X 0.1 CM IN AGGRE GATE OF MUCUS AND HEMOR RHAGI C MATER IAL. THE SPECI MEN IS FILTE RED AND ENTIR ABDOUL SUBMI TTED IN CASSE TTE(S ) A1. THE SPECI MEN MAY NOT SURVI VE PROCE SSING . Part B: ECTOC ERVIC AL BIOPS Y 3:00: 2 FRAGM ENT(S ) OF KENNY MUCOI D TISSU E MEASU RING 0.3 X 0.2 X 0.2 CM IN AGGRE GATE. SUBMI TTED RECEI AFTAB IN CASSE TTE(S ) B1. MCL/M CL 11/13 0639 Local Not Available [facility] ([facility]) [address], [place], [address], 11/16/2020 13:08:46 11/13/19 21 11/16/2020 patho logy study . Commmary t Patho logis t provi ded ICD-1 0: N87.0 , N72, N87.0 Not Available [facility] ([facility]) [address], [place], [address], 11/16/2020 13:08:46 11/13/19 21 11/16/2020 patho logy study . Commmary t CPT . 45726 1, 10581 2 Not Available [facility] ([facility]) [address], [place], [address], 11/16/2020 13:08:46 11/25/19 22 11/25/2021 IGP, APTIM A HPV, RFX 16/18 ,45 HPV aptima Positi ve negati ve abnormal This nucle ic acid ampli ficat ion test detec ts fourt een high- risk HPV types (16,1 8,31, 33,35 ,39,4 5,51, 52,56 ,58,5 9,66, 68) witho ut diffe renti ation . Not Available [facility] ([facility]) [address], [place], [address], 11/30/2021 04:19:41 11/25/19 22 11/29/2021 IGP, APTIM A HPV, RFX 16/18 ,45 diagnosis: Commen t NEGAT DAVIE FOR INTRA EPITH ELIAL LESIO N OR CIPRIANO POTTS . REACT DAVIE CELLU LAR SPANGLER ES AND/O R REPAI R ARE PRESE NT. Not Available [facility] ([facility]) [address], [place], [address], 11/30/2021 04:19:41 11/25/19 22 11/29/2021 IGP, APTIM A HPV, RFX 16/18 ,45 specimen adequacy: Commen t Satis facto ry for evalu ation . Endoc ervic al and/o r squam ous metap lasti c cells (endo cervi floyd compo nent) are prese nt. Not Available [facility] ([facility]) [address], [place], [address], 11/30/2021 04:19:41 11/25/19 22 11/29/2021 IGP, APTIM A HPV, RFX 16/18 ,45 clinician provided ICD10: Commen t N87.0 R87.8 10 Z12.4 Not Available [facility] ([facility]) [address] [place], [address], 11/30/2021 04:19:41 11/25/19 22 11/29/2021 IGP, APTIM A HPV, RFX 16/18 ,45 performed by: Briseyda wilkerosn, Cytot echno logis t (ASCP ) Not Available [facility] ([facility]) [address] [place], [address], 11/30/2021 04:19:41 11/25/19 22 11/29/2021 IGP, APTIM A HPV, RFX 16/18 ,45 electronical ly signed by: Briseyda [place] MD, Patho logis t Not Available [facility] ([facility]) [address] [place], [address], 11/30/2021 04:19:41 11/25/19 22 11/29/2021 IGP, APTIM A HPV, RFX 16/18 ,45 . . Not Available [facility] ([facility]) [address] [place], [address], 11/30/2021 04:19:41 11/25/19 22 11/29/2021 IGP, APTIM A HPV, RFX 16/18 ,45 note: Briseyda parks The Pap smear is a scree amira test desig trell to aid in the detec tion of ibeth ligna nt and malig nant condi tions of the uteri ne cervi x. It is not a diagn ostic proce dure and shoul d not be used as the sole means of detec ting cervi floyd cance r. Both false -posi tive and false -nega tive repor ts do occur . Not Available [facility] ([facility]) [address] [place], [address], 11/30/2021 04:19:41 11/25/19 22 11/29/2021 IGP, APTIM A HPV, RFX 16/18 ,45 test methodology: Briseyda parks This liqui d based ThinP rep(R ) pap test was scree trell with the use of an image guide divya systluisito cee. Not Available [facility] ([facility]) [address] [place], [address], 11/30/2021 04:19:41 11/25/19 22 11/30/2021 IGP, APTIM A HPV, RFX 16/18 ,45 HPV genotype 16 Positi ve negati ve abnormal Not Available [facility] ([facility]) [address], [place], [address], 11/30/2021 04:19:41 11/25/19 22 11/30/2021 IGP, APTIM A HPV, RFX 16/18 ,45 HPV genotype 18,45 Negati ve negati ve Not Available [facility] ([facility]) [address], [place], [address], 11/30/2021 04:19:41 10/24/19 20 10/21/2019 US, trans vagin al No observ ation record ed. [facility] [employer] [address] [place] [address] , [place], [address], 10/24/2019 14:21:08 11/22/19 20 11/21/2019 CT, abdom en + pelvi s, w/wo contr ast No observ ation record ed. [address] ([facility]) [address] [place] [address] [address], [place], [address], 11/26/2019 15:59:56 12/02/19 20 11/21/2019 LDCT, chest , for lung cance r scree amira No observ ation record ed. [address] [facility] [address] [place], [id number], 12/03/2019 17:56:14 12/02/19 20 11/21/2019 LDCT, chest , for lung cance r scree amira No observ ation record ed. [address] [facility] [address] [place], [id number], 12/03/2019 17:56:20 07/28/19 21 07/21/2020 MAMMO , scree amira, digit al, bilat eral No observ ation record ed. [email or web address] (Scheduling) [address], [place], [address], 07/29/2020 09:47:15 08/19/19 21 08/13/2020 MAMMO , diagn ostic , digit al, unila teral No observ ation record ed. [email or web address] [facility] (Scheduling) [address], [place], [address], 08/26/2020 10:51:43 08/19/1908/13/2020 US, breas t, bilat eral No observ ation record ed. [email or web address] (Scheduling) [address], [place], [address], 08/19/2020 10:56:01 08/19/19 21 08/13/2020 US, breas t, bilat eral No observ ation record ed. [email or web address] (Scheduling) [address], [place], [address], 08/19/2020 10:56:01 02/26/20 21 02/16/2021 MAMMO , diagn ostic , digit al, bilat eral No observ ation record ed. [facility] (Scheduling) [address], [place], [address], 02/26/2021 16:48:48 02/26/2002/16/2021 US, breas t, bilat eral No observ ation record ed. [email or web address] [facility] (Scheduling) [address], [place], [address], 03/02/2021 08:55:48 02/26/20 21 02/16/2021 US, breas t, bilat eral No observ ation record ed. [facility] (Scheduling) [address], [place], [address], 02/26/2021 16:48:49 02/26/2002/16/2021 US, breas t, bilat eral No observ ation record ed. Not Available 2020 16:48:48 03/22/2003/15/2021 biops y, breas t, w/ ultra sound pascual nce (PROC ) No observ ation record ed. [address] (Scheduling) [address], [place], [address], 03/23/2021 07:59:27 03/22/2003/15/2021 biops y, breas t, w/ ultra sound pascual nce (PROC ) No observ ation record ed. [address] (Scheduling) [address], [place], [address], 03/23/2021 07:59:33 03/22/2003/15/2021 biops y, breas t, w/ ultra sound pascual nce (PROC ) No observ ation record ed. [address] (Scheduling) [address], [place], [address], 03/23/2021 07:59:41 03/22/2003/15/2021 biops y, breas t, w/ ultra sound pascual nce (PROC ) No observ ation record ed. [address] (Scheduling) [address], [place], [address], 03/23/2021 07:59:51 03/22/2003/15/2021 biops y, breas t, w/ ultra sound pascual nce (PROC ) No observ ation record ed. [address] (Scheduling) [address], [place], [address], 03/23/2021 07:59:56 03/22/20 21 03/15/2021 biops y, breas t, w/ ultra sound pascual nce (PROC ) No observ ation record ed. [email or web address] [facility] (Scheduling) [address], [place], [address], 03/23/2021 08:00:02 12/01/19 22 11/30/2021 MAMMO , diagn ostic , digit al, bilat eral No observ ation record ed. [address], [place], [address], 12/01/2021 09:54:59 09/15/19 23 09/14/2022 LDCT, chest , for lung cance r scree amira No observ ation record ed. [address], [place], [address], 09/20/2022 15:53:33 09/15/19 23 09/14/2022 DEXA, verte bral fract ure asses sment No observ ation record ed. [address], [place], [address], 09/20/2022 15:53:33 Result Notes None recorded. Problems Name Problem SNOMED Code Status Onset Date Resolution Date Notes Provider Name and Address Organization Details Recorded Time [facility] [id number] Active 2017 Terese velez [place] - [facility] 8 10:26:54 Cigarett e smoker [id number] Completed 201711/23/2022 Narda velez [place] - [facility] 3 10:54:37 HPV - Human papillom avirus test positive Active 2017 Type 16; unsatisf actory colpo Chelsea Nieves, FILM REPLACEMENT ORDERER [address], [place], [address], [place] [facility] 0 09:25:25 Mammogra phy abnormal 258411155 Completed 201710/06/2020 nodule UOQ Rt; 6 month f/u Narda [place]lez[place] - [facility] 3 10:52:33 Multiple cysts of breast 833183102 Completed 202011/23/2022 complex cysts bilatera lly; plan 6 month f/u diagnost ic mammo and US 02/2021 Narda [place]lez[place] - [facility] 3 10:54:17 Osteopen ia 870152551 Active 201907/17/2019 osteopen ia noted on DEXA; recommen d to start alendron ate 35mg once weekly; encourag e CA 1200-150 0mg/day and Vitamin D 800IU/da latrell; recommen d regular weight-b earing exercise ; rpt DEXA 2 yr Narda velez, [place] - [facility] 1 11:08:43 Mixed urinary incontin ence 220508536 Active 2020 Alisa Negron MD [address], [place], [address], [place] [facility] 1 13:30:39 History of adenomat ous polyp of colon 281131622 Active 2020 Alisa Negron MD [address], [place], [address], [place] [facility] 1 13:31:36 Coronary arterios clerosis 23602665 Active 2020 Alisa Negron MD [address], [place], [address], [place] [facility] 1 19:27:17 Human papillom a virus infectio n 309052551 Active 2020 Alisa Negron MD [address], [place], [address], [place] [facility] 1 19:27:24 Low grade squamous intraepi thelial lesion on vaginal Papanico laou smear 0993309765 00535 Completed 202011/23/2022 Narda Bennett null[place] - [facility] 3 10:54:07 Mammogra phy abnormal 255677098 Completed 202111/23/2022 nodule UOQ Rt; 6 month f/u [place]arda [place] [facility] 3 10:52:33 Tobacco user 586211178 Active 2021 Alisa Negron MD [address], [place], [address], [place] [facility] 2 09:34:44 History of dysplasi a of cervix 243844878 Active Narda Bennett [place] [facility] 3 10:54:30 Problem Notes None recorded. Procedures Surgical History Date Name Laterality Status Provider Name and Address Organization Details Recorded Time 023 Most Recent Bone Density completed [place]arda [place] [facility] 09/20/2022 15:52:29 022 Date of Last Mammogram completed [place]arda [place] [facility] 12/01/2021 09:54:44 022 Date of Last Pap Smear completed [place]arda [place] [facility] 12/01/2021 10:02:56 021 stereotactically guided percutaneous core needle biopsy of breast completed Chelsea Nieves APRN [address], [place], [address], [place] [facility] 03/22/2021 13:05:16 021 Colposcopy completed Alisa Negron MD [address], [place], [address], [place] [facility] 11/12/2020 19:16:04 021 Colposcopy completed Narda Sabrina [place] [facility] 11/20/2020 11:48:33 021 Date of Last Colonoscopy completed Narda Sab[place] [facility] 10/22/2020 09:30:02 021 Colonoscopy completed [place]arda [place] [facility] 10/09/2020 15:34:22 020 LEEP Procedure completed Alisa Negron MD [address], [place], [address], [place] [facility] 08/13/2019 10:51:08 020 LEEP completed [place]arda [place] [facility] 08/19/2019 16:30:31 020 Colposcopy completed Chelsea Nieves APRN [address], [place], [address], [place] [facility] 07/11/2019 09:44:50 018 Colposcopy completed Chelsea Nieves APRN [address], [place], [address], [place] [facility] 04/20/2018 12:21:08 018 Back Surgery completed Alisa Negron MD [address], [place], [address], [place] [facility] 02/20/2020 09:58:05 014 endoscopy completed Chelsea Nieves APRN [address], [place], [address], [place] [facility] 08/16/2019 16:12:52 014 Colonoscopy completed Chelsea Nieves APRN [address], [place], [address], [place] [facility] 08/16/2019 16:13:10 Cholecystectomy, laparoscopic completed Terese Millan [place] [facility] 04/05/2018 10:30:13 Carpal tunnel surgery [place] Terese Mill[place] [facility] 04/05/2018 10:30:24 Colposcopy completed Narda [place] [facility] 11/20/2020 11:51:43 Imaging Results None recorded. Procedure Notes None recorded. Medical Equipment None Reported. Allergies Allergen ID Allergen Name Allergen Category Reaction Reaction Severity Criticality Documentation Date Start Date Code Code System Note Provider Name and Address Organization Details Recorded Time 434959 codeine medicatio n Not available Not available Not available 04/05/2018 2670 RxNorm gets very sick with this Terese [place]lez, [place] - [facility] 8 10:25:18 Medications Name Sig Start Date Stop Date Status Note LastModified by Organization Details LastModified Time promethaz ine-DM 6.25 mg-15 mg/5 mL oral syrup 08/29 completed Not Available Not Available Not Available famotidin e 40 mg tablet TAKE 1 TABLET BY MOUTH EVERY DAY AT BEDTIME active Not Available Not Available No t Available alendrona te 70 mg tablet TAKE 1 TABLET BY MOUTH 1 TIME A WEEK DIRECTED active Not Available Not Available No t Available metronida zole 500 mg tablet take 4 tablets by oral route x 1 dose 07/11 completed Not Available Not Available Not Available Zantac 150 mg tablet Take 1 tablet every day by oral route. 06/20 completed Not Available Not Available Not Available meloxicam 7.5 mg tablet TAKE 1 TABLET BY MOUTH EVERY DAY active Not Available Not Available No t Available alendrona te 35 mg tablet TAKE 1 TABLET BY MOUTH EVERY WEEK 11/24 completed states had hard time remember ing pill felt no differen ce Not Available Not Available Not Available famotidin e 20 mg tablet Take by oral route for 90 days. 11/24 completed Not Available Not Available Not Available benzonata te 100 mg capsule active Not Available Not Available Not Available methylpre dnisolone 4 mg tablets in a dose pack 08/29 completed Not Available Not Available Not Available ondansetr on 4 mg disintegr ating tablet DISSOLVE 1 TABLET ON THE TONGUE EVERY 8 HOURS NEEDED FOR NAUSEA active Not Available Not Available No t Available cefdinir 300 mg capsule TAKE 1 CAPSULE BY MOUTH EVERY 12 HOURS FOR 7 DAYS active Not Available Not Available No t Available Premarin 0.625 mg/gram vaginal cream INSERT ONE (1) APPLICAT ORFUL EVERY TWO (2) WEEKS BY VAGINAL ROUTE. 11/24 completed Not Available Not Available Not Available multivita min active Not Available Not Available Not Available Sudafed 24 Hour Take po once daily 08/12 completed Not Available Not Available Not Available peg 3350-elec trolytes 236 gram-22.7 4 gram-6.74 gram-5.86 gram solution MIX AND DRINK 240ML BY MOUTH EVERY 10 MINUTES UNTIL FECAL EFFLUENT IS CLEAR active Not Available Not Available No t Available Probiotic active Not Available Not Erin ilable Not Available Suprep Bowel Prep Kit 17.5 gram-3.13 gram-1.6 gram oral solution 10/06 completed Not Available Not Available Not Available Shingrix (PF) 50 mcg/0.5 mL intramusc ular suspensio n, kit 10/06 completed Not Available Not Available Not Available BinaxNOW COVID-19 Ag Self Test kit TEST DIRECTED TODAY active Not Available Not Available No t Available Paxlovid 300 mg (150 mg x 2)-100 mg tablets in a dose pack TAKE DIRECTED FOR 5 DAYS active Not Available Not Available No t Available Vitals Date Recorded Body height Body mass index (BMI) Body weight Heart rate Oxygen saturation Oxygen saturation in Arterial blood by Pulse oximetry Systolic blood pressure Diastolic blood pressure Provider Name and Address Organization Details Last Updated DateTime 1 156.21 cm 33.6 kg/m2 44972.2 2 g 100 /min 95 % 95 % 126 mm[Hg] 72 mm[Hg] Rick Waddells [place] - [facility] 1 10:56:26 Date Recorded Body height Body mass index (BMI) Body weight Systolic blood pressure Diastolic blood pressure Provider Name and Address Organization Details Last Updated DateTime 10/21/2019 156.21 cm 29.9 kg/m2 14794.37 g 132 mm[Hg] 72 mm[Hg] Narda Sabrina [place] - [facility] 0 11:42:00 Date Recorded Body height Body mass index (BMI) Body weight Systolic blood pressure Diastolic blood pressure Provider Name and Address Organization Details Last Updated DateTime 11/12/2020 156.21 cm 33.3 kg/m2 85311.03 g 130 mm[Hg] 90 mm[Hg] Waleska Boykin [place] - [facility] 1 10:24:05 Date Recorded Body weight Heart rate Oxygen saturation Oxygen saturation in Arterial blood by Pulse oximetry Body mass index (BMI) Body height Systolic blood pressure Diastolic blood pressure Provider Name and Address Organization Details Last Updated DateTime 2 11295.8 9 g 94 /min 96 % 96 % 32 kg/m2 156.21 cm 148 mm[Hg] 80 mm[Hg] Alixri tanya [place] - [facility] 2 11:01:49 Date Recorded Body height Body mass index (BMI) Body weight Systolic blood pressure Diastolic blood pressure Provider Name and Address Organization Details Last Updated DateTime 02/20/2020 156.21 cm 31.4 kg/m2 90571.11 g 132 mm[Hg] 72 mm[Hg] Narda Bennett [place] - [facility] 0 09:28:38 Social History Question Answer Notes LastModified by Organizat ion Details LastModified Time Tobacco Smoking Status Current Every Day Smoker Terese velez, [place] - [facility] 04/05/2018 10:28:43 Do You Have An Advance Directive? No Information not available 04/05/2018 Are You Blind Or Do You Have Difficulty Seeing? No Information not available 04/05/2018 Is Blood Transfusion Acceptable In An Emergency? Yes Information not available 04/05/2018 What Is Your Level Of Caffeine Consumption? Heavy Information not available 04/05/2018 How Much Tobacco Do You Chew? None Information not available 04/05/2018 Are You Deaf Or Do You Have Serious Difficulty Hearing? No Information not available 04/05/2018 What Type Of Diet Are You Following? REGULAR Information not available 04/05/2018 Which Illicit Or Recreational Drugs Have You Used? Denies Information not available 04/05/2018 Live Alone Or With Others? With Others Information not available 04/05/2018 What Was The Date Of Your Most Recent Tobacco Screening? 11/24/2021 Information not available 11/24/2021 How Many Children Do You Have? 2 Information not available 04/05/2018 Performs Monthly Self-breast Exam? No Information no t available 04/05/2018 What Is Your Relationship Status? Information not available 04/05/2018 Seat Belts Used Routinely Yes Information not available 04/05/2018 Are You Sexually Active? Yes Information not available 04/05/2018 At What Age Did You Start Smoking Tobacco? 24 Information not available 02/20/2020 How Much Tobacco Do You Smoke? 1 PPD Information not available 04/05/2018 Do You Use Sunscreen Routinely? Yes Information not available 04/05/2018 How Many Years Have You Smoked Tobacco? 42 Information not available 11/22/2021 Do You Have Difficulty Walking Or Climbing Stairs? No Information not available 04/05/2018 Sex: Unknown Functional Status Question Answer Note LastModified by Organizat ion Details LastModified Time What is your level of alcohol consumption? None Information not available 04/05/2018 Do you or have you ever used smokeless tobacco? Never used smokeless tobacco [email or web address] Information not available 06/20/2019 Are you currently employed? No Information not available 04/05/2018 Urinary incontinence assessment performed? No Information not available 04/05/2018 Are you able to walk? YESWOREST Information not available 04/05/2018 Do you have difficulty doing errands alone? No Information not available 04/05/2018 What is your occupation? Retired Information not available 04/05/2018 Do you have difficulty dressing or bathing? No Information not available 04/05/2018 Do you or have you ever used e-cigarettes or vape? Never used electronic cigarettes [email or web address] Information not available 06/20/2019 What is your exercise level? None Information not available 10/09/2020 Mental Status Question Answer Note LastModified by Organization D etails LastModified Time Do you have difficulty concentrating, remembering or making decisions? No Information no t available 04/05/2018 Family History Relationship Description Onset Age of this Age Resolved Age Notes LastModified by Organization Details LastModified Time Father No current problems or disability ntarter Not available 04/05 10:28:35 Mother No current problems or disability ntarter Not available 04/05 10:28:35 Medical History Condition Response Abnormal PAP Y Gynecological History Statement/Question Response Date of Last LDCT 09/14/22 [facility] Date of Last Mammogram 11/30/2021 STIs/STDs Y Colposcopy 11/12/2020 Current Control Method Menopause Last Annual Exam/Provider 11/24/21 [facility] If Post Menopausal, Age at Menopause 38 Date of Last Colonoscopy 07/16/2020 Most Recent Bone Density 09/14/2022 Sexually Active? N Date of Last Cervical Culture 08/30/2019 Menses Monthly N Date of Last Pap Smear 11/24/2021 Sexual Problems? Yes Obstetrics History GPAL:G 2 P 2 0 0 2 Type Value Full Term 2 Living 2 Total 2 Immunizations Vaccine Type Date Status Note Provider Bong jorge and Address Organization Details Recorded Time zoster recombinant 0 completed [place] [facility] 02/20/2020 10:50:37 Past Encounters Encounter ID Performer Location Encounter Start Date Encounter Closed Date Diagnosis/Indication Diagnosis SNOMED-CT Code Diagnosis ICD10 Code Diagnosis Note [id number] MARLON Gardner [employer] [address] [place] [address] [place] [address] 04/05/2018 09:55:57 04/05/2018 12:32:20 Routine gynecologic examination done 7649539608 9101 Z01.419 Depression screening 171 239022 Z13.89 Hypertensi on screening 042049890 Z13.6 Screening for malignant neoplasm of cervix 365082828 Z12.4 Diet education 90833439 Z71.3 Encourage healthy eating/dec reased fats, sugars, fried foods Screening for malignant neoplasm of breast 225864372 Z12.31 Counseling 571102689 Z71 .82 Encouraged regular exercise 30-40 min/day 4-5 days/wk Body mass index 25-29 - overweight 777863490 Z68.29 Cigarette smoker 5650577 7 F17.210 Vaccine de clined by patient 3672492161 02 Z28.21 declines flu shot [id number] MARLON Gardner [employer] [address] [place] [address] [place] [address] 04/20/2018 10:31:22 04/20/2018 14:09:45 HPV - Human papillomavirus test positive 621150795 R87.997 [id number] MARLON Gardner [employer] [address] [place] [address] [place] [address] 06/20/2019 09:44:34 06/20/2019 10:50:58 Routine gynecologic examination done 1392688634 9101 Z01.419 Depression screening 171 601141 Z13.89 Hypertensi on screening 661934662 Z13.6 Screening for malignant neoplasm of cervix 774725031 Z12.4 Diet education 21112880 Z71.3 Encourage healthy eating/dec reased fats, sugars, fried foods Counseling 717938465 Z71 .82 Encouraged regular exercise 30-40min/d ay 4-5 days/wk Vaccine de clined by patient 8694438224 02 Z28.21 Pt declined flu vaccine today. HPV - Annie n papillomavirus test positive 170964006 R87.619 Pain of breast 83211105 N64.4 Screening for osteoporosis 366245797 Z13.820 Body mass index 30+ - obesity 016490741 Z68.30 Cigarette smoker 2214653 7 F17.210 Postmenopausal state 764 41512 Z78.0 [id number] MARLON [place] [employer] [address] [place] [address] [place] [address] 07/11/2019 08:51:36 07/11/2019 09:47:06 HPV - Human papillomavirus test positive 957538815 R87.619 Increased frequency of urination 498131037 R35.0 [id number] MARLON [place] [employer] [address] [place] [address] [place] [address] 08/01/2019 10:36:59 08/01/2019 12:47:05 Mastodynia of right breast 2078503126 5287801 N64.4 [id number] MD Gilbert Batres [employer] [address] [place] [address] [place] [address] 08/13/2019 09:50:17 08/13/2019 10:45:41 HPV - Human papillomavirus test positive 616701257 R87.810 persistent POS HPV 16 with neg cytology but unsatisfac tory colpo x 2, neg ECC 07/01 Trichomonal vaginitis 27 9892948 A59.00 06/17/2019 pos trich noted on pap, treated with flagylTOC today Screening for malignant neoplasm of colon 904144864 Z12.11 [id number] MD Gilbert Batres [employer] [address] [place] [address] [place] [address] 08/30/2019 09:58:10 08/30/2019 11:19:34 Human papillomavirus deoxyribonucleic acid detected, high risk on cervical specimen 792543320 R87.810 persistent POS HPV 16 with neg cytology but unsatisfac tory colpo x 2, neg ECC 07/01; 08/13/2019 LEEP showing hpv changes only, no dysplasia. Advise recheck 6 months History of polyp of colon 028310451 Z86.010 received record from [facility] - colonoscop y 2013 advised 1 year follow up-- states going soon! ENCOURAGED Right lowe r quadrant pain 366853643 R10.31 Symptoms have resolved and have never been acute. Low suspicion for inflammato ry changes but check labs. no Mass on exam but check pelvic ultrasound at return to clinic [id number] MD Gilbert Batres [employer] [address] [place] [address] [place] [address] 02/20/2020 09:16:07 02/20/2020 10:56:17 Human papillomavirus deoxyribonucleic acid detected, high risk on cervical specimen 211568527 R87.810 03/2018 wnl pos hpv wnl pos HPV 16LEEP 08/13/2019 no dysplasia, hpv changes [id number] surveillan ce today Active or passive immunization 805101690 Z23 reviewed- wants shingrix here today; advised check woth pcp re pneumonia, refuses FLU( Priro rxn) Screening for malignant neoplasm of breast 194998070 Z12.31 Patient aware of due date for next Mammogram as indicated below. he will be notified by facility of result after completion . Advise yearly Clinical Breast exam with Annual exam. Cigarette smoker 5663699 7 F17.210 due yearly Dakotah [id number] MD Gilbert Batres [employer] [address] [place] [address] [place] [address] 10/21/2019 10:12:31 10/21/2019 12:09:34 Right lower quadrant pain 637469822 R10.31 Current work-up negative for any gynecologi c sources of pain. Normal CBCs sed rate and urine culture speak against any lula inflammato ry changes in abdomen. Still pending colonoscop y. Advise also CT of the abdomen and pelvis. Suspect possible IBS versus pelvic floor muscle spasm given descriptio n of pain. Screening for malignant neoplasm of respiratory tract 349471276 Z12.2 [id number] MD Gilbert Batres [employer] [address] [place] [address] [place] [address] 10/09/2020 10:42:26 10/09/2020 11:58:51 Human papillomavirus deoxyribonucleic acid detected, high risk on cervical specimen 122050003 R87.810 Z12.4 Positive type XVI noted 11 18 and 1 20. Worst histology has been HPV changes without dysplasia on LEEP 08 29 20. Panel positive on 03 01 post LEEP follow-up but not subtype. As Pap was ASCUS. Recheck both today and in 6 months Gynecologi c examination 86622759 Z01.419 Depression screening 171 272897 Z13.89 Hypertensi on screening 362218558 Z13.6 Patient currently is within goal of less than 140/90. We will rescreen at annual visit, sooner if needed Exercises education, guidance, and counseling 872291048 Z71.82 Advise 30 minutes 3 times a week at a minimum of purposeful exercise. Patient is not currently meeting this goal. Body mass index 30+ - obesity 666525013 Z68.33 Multiple c ysts of breast 655562929 N60.19 3comp pablo cysts bilaterall y; plan 6 month f/u diagnostic mammo and US 02/2021 (order already placed) Cigarette smoker 1353301 7 F17.210 Identified as smoker. Discussed health risks of smoking. Encouraged cessation. Cessation strategies reviewed. She is not interested in cessation trial or treatment. Yearly lung cancer screening due 11/2020, future order previously placed. Coronary arteriosclerosis 22646916 I25.[address] imaging, has not had any type of formal cardiac evaluation . Mild BELLAMY symptoms but also long-term smoker. Advised to f/u with Dr Hernandez to discuss cardiology referral for coronary artery calcificat ion noted on lung scan 11/2019. Mixed urin nelson incontinence 290366226 N39.46 mixed urinary incontinen ce, mild. SHILO not demonstrat ed on exam and good support noted. With moderate atrophy will advise conservati ve trial with Premarin cream as well as pelvic floor exercises, demonstrat es that she does use well on exam. She does not feel things are bad enough to consider either surgery or anticholin ergics but advised to let us know if things are getting worse and will monitor this when she is coming in for cervical follow-up Influenza vaccine needed 0772633112 106 Z23 discussed shingles vaccine #2 today, may get at later date will send rx to pharmacy ; recommend getting covid vaccine; check with PCP Re: Pneumonia series History of adenomatous polyp of colon 028647260 Z86.010 2014; 2 scopes 8 20 and 2 21 per patient showed this. 08 03 follow-up advised perr Dr. Pritchard at [facility] Osteopenia 023132857 M85 .80 . Tolerating alendronat e 35 mg weekly started 08 01. Minimum T score -2.3 with calculated FRAX with smoking as 3.6. Renew this and recheck BMD spring 2021 [id number] MD Gilbert Batres [employer] [address] [place] [address] 11/12/2020 10:05:39 11/12/2020 11:30:51 Low grade squamous intraepithelial lesion on vaginal Papanicolaou smear 0291716546 54611 R87.622 LSIL Pap 10-09-20, persistent unsatisfac tory colposcopy with inverted stenotic os post 08 30 19 LEEP that has shown HPV changes only, no dysplasia negative margins.. Unable to even access for adequate ECC. 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 SHILO not demonstrat ed on exam and good support noted. With moderate atrophy will advise conservati ve trial with Premarin cream as well as pelvic floor exercises, demonstrat es that she does use well on exam. She does not feel things are bad enough to consider either surgery or anticholin ergics but advised to let us know if things are getting worse and will monitor this when she is coming in for cervical follow-up- -no change in the last 2 months but she also has not gotten Premarin cream filled. Advised her to go to our pharmacy and get this picked up where it was sent in September and use as discussed Cigarette smoker 7373948 7 F17.210 Identified as smoker. Discussed health risks of smoking. Encouraged cessation. Cessation strategies reviewed. She is not interested in cessation trial or treatment. Yearly lung cancer screening due 11/2020, future order previously placed. Currently 1/2 pack/day. Patient plans to check with [facility] and PCP to get this performed Osteopenia 894205282 M85 .80 . Was prescribed alendronat e 35 g weekly July 2019 per DT with minimum T score -2.3 with calculated FRAX with smoking as 3.6. I had presumed she was taking this when seen 10-09-20 so I renewed this and advised recheck BMD spring 2021. apparently she only started taking this October 2020, tolerating well. Discussed what this pill was for, she thought it was for her vagina, and need for weekly dosing Coronary arteriosclerosis 15606846 I25.[address] imaging, has not had any type of formal cardiac evaluation . Mild BELLAMY symptoms but also long-term smoker. Advised at September visit to f/u with Dr Hernandez to discuss cardiology referral for coronary artery calcificat ion noted on lung scan 11/2019. Has not gone as of today reinforced advice Multiple c ysts of breast 366201876 N60.19 08/13/20comp pablo cysts bilaterall y; plan 6 month f/u diagnostic mammo and US 02/2021 (order already placed) [id number] MD Gilbert Batres [employer] [address] [place] [address] 11/24/2021 10:33:31 11/24/2021 11:48:22 Gynecologic examination 76157975 Z01.419 Depression screening 171 036179 Z13.89 Hypertensi on screening 343188827 Z13.6 Patient currently iswithin goal of less than 140/90. We will rescreen at annual visit, sooner if needed Exercises education, guidance, and counseling 379645174 Z71.82 Advise 30 minutes 3 times a week at a minimum of purposeful exercise. Patient is not currently meeting this goal. Cervical intraepithelial neoplasia grade 1 [id number] N87.0 R87.810 Z12.4 We will continue close expectant management at this point. She is now 2 years post LEEP showing only HPV changes and histology 11 30 still showing mild dysplasia but unsatisfac tory/inver paco TZ. If persistent dysplastic changes into early i.e. at June 01 screening ; would consider a small second LEEP. If high-grade changes today will bring back sooner for earlier LEEP 11/30 Colpo:: Unsatisfac tory due to transforma tion zone version. ECC OBI-1, ectocervic al biopsy OBI-1. Advise 6-month follow-up: 10/09/20 LGSIL HPV +/16+,18 neg02/20/20 20 ascus pos hpv3-3-20 colposcopy with LEEP/lls- path with HPV changes only, normal endocervic al tissue, no dysplastic tissue. Negative follow-up trichomoni asis1-30-2 0-colposco py/dt-unsa tisfactory . No ectocervic al lesions. ECC negative. Referral for LEE06/20/19 20wnl/pos HPV type 16; pos trich;11.9 .18 COLPO(dt)- unsatisfac tory/tz not seen, but white epithelium at 4:00. 4 biopsy benign cervix, negative [id number] wnl/pos HPV 16;Gap in careapprox 2008 wnl per pt Body mass index 30+ - obesity [id number] Z68.32 Obesity [id number] E66.3 Mammography abnormal 168 [id number] R92.8 History of bilateral complicate d cystic changes and bilateral needle guided biopsies 03 02 that were benign. Overdue for 6 months follow-up diagnostic . Has scheduled a [facility] later in November. No physical exam changes. Tobacco user [id number] Z 72.0 F17.210 No interest in cessation. Willing to continue yearly LDCT Osteopenia [id number] M85 .80 Z78.0 Willing to retry Fosamax with tips given for better compliance with dosing. Due for bone density screening this year although will be hard to make judgment on this as she has not had consistent dosing during the last 2-year interval History of adenomatous polyp of colon [id number] Z86.010 08 02, hyperplast ic polyp x2 with suboptimal colonoscop y; scheduled 02/03/22 [facility] [address]. Pritchard for 1 year follow up Mixed urin nelson incontinence [id number] N39.46 issue noted 10/09/20 annual-mix ed urinary incontinen ce, mild. SHILO not demonstrat ed on exam and good support noted. Trial of Premarin cream at 2020 visit because she did not use this and does not feel like symptoms warrant any treatment at this point Health Concerns Section Related Observation LastModified by Organization Detai ls LastModified Time None Recorded Concern Status LastModified by Organization Details LastModified Time None Recorded Advance Directives Directive N: Payers Insurance Date Sequence Insurance Name Policy Number Policy Jackson Covered Member ID Jackson Member ID Guarantor Name 07/03/2019 2 [place] Yaima Francheska [id number] Yaima Francheska 11/25/2022 1 [place]/A DVANTAGE - HMO) [id number] Yaima Francheska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
--- OUTSIDE RECORDS SUMMARY | 2024-11-21 09:30 | XMS_ITS | Encounter Summary ---
Author Organization [facility] Address [address] [place] [address] Care Team Providers Care Wraparound Facilitator Name Role Phone Luis Hatfield MD Primary Care Provider [phone] Encounter Details Date Type Department Care Team (Late st Contact Info) Description 09/20/2024 Orders Only External Location [address] [place] [address] Provider, External Social History Tobacco Use Types [...] any time in the past 12 m [facility], were you homeless or living in a fci (including now)? No 09/23/2024 CAGE ASSESSMENT Answer [...] drink first t kimberlyn in the morning ([employer]) to steady your nerves or to get [...] Appointment [facility] Interventional Radiology [address] [place] [address] 01/15/2025 4:30 PM EDT Office Visit [facility] [address] [place] [address] Ochoa Matias MD [address] [facility] [address] [place] [address] documented as of this encounter Procedures Procedure [...] documented as of this encounter Care Teams Wraparound Facilitator Relationship Specialty Start Date End Date Luis Hatfield MD [address] [place] [id number] PCP - General 07/24/24 documented as of this encounter
--- OUTSIDE RECORDS SUMMARY | 2024-11-21 09:30 | XMS_ITS | Data Portability ---
Author Organization [place] - [facility], [employer] [facility] Address [address] [place] [address] Care Team Providers Care Web Consultant Name Role Phone DENA HERNANDEZ Primary Care Provider Assessment No assessment recorded. Plan of Treatment Reminders Order Date Submit Date Provider Last Modified By Organization Details Last Modified Time Details Appointments None record ed. Lab None record ed. Referral None record ed. Procedures None record ed. Surgeries None record ed. Imaging None record ed. Medication Orders None record ed. Patient TargetsNo targets recorded. Patient Instructions Encounter Date Encounter Id Patient Instructions Last Modified By Organization Details Last Modified Time 09/30/2024 [id number] The member is cu [place]rently located in [place]. Pre-CallReview Readings Pre-call review started at 2024-09-30 13:08 EDT BP Cuff Readings: Blood Pressure 7-day average: 116 / 61 Blood Pressure 30-day average: 142 / 75 Review Notes Most recent nurse notes were reviewed. Most recent provider notes were reviewed. Clinical TopicsCall InitiationConnection Connected: The member answered our calls Recording Call The member was notified and acknowledged that the call is being recorded for quality and training purposes. Identity Confirmation The member s identity was confirmed using name and date of . Location Confirmation The member is currently located in [place]. The member is willing and able to complete the call. Clinical ReviewMeer Health Updates Member reported no allergy and/or medication changes Notes: no changes to report Clinical Goals Goal: Blood pressure less than 130/80 mmHg Status: Off Track Current Value: 142/75 Focus Area: Device Usage CoachingTargeted device usage coaching was shown because the member was not meeting device usage goals. Member's reason for not meeting device usage goals: Other member was recently in the hospital, is back home now Clinical Coaching The member was coached on the following topics: Diet adeqaute hydration General Education daily readings / s/s of hypotension Next StepsConfirm Next Appointments Confirmed the next [place] appointment with the member on 2024-10-07 12:30 EDT. Post-Call DocumentationPerformed By Lori Hernandez Time spent 12 minutes. Additional Details Member reports doing well, was recently in the hospital, and since then BP has been trending at goal. Member reports feeling fine, just tred from her chemo. [email or web address] Not available 09/30/2024 13:20:32 10/07/2024 [id number] The member is cu [place]ly [place] in [place]. Pre-CallReview Readings Pre-call review started at 2024-10-07 12:36 EDT BP Cuff Readings: No BP readings in the past 7 days. Blood Pressure 30-day average: 139 / 74 Review Notes Most recent nurse notes were reviewed. Most recent provider notes were reviewed. Clinical TopicsCall InitiationConnection Connected: The member answered our calls Recording Call The member was notified and acknowledged that the call is being recorded for quality and training purposes. Identity Confirmation The member s identity was confirmed using name and date of . Location Confirmation The member is currently located in [place]. The member is willing and able to complete the call. Clinical ReviewMetuba city [facility] Updates Member reported no allergy and/or medication changes Medication ReconciliationThe member was due for a medication reconciliation because of either an upcoming provider follow-up or a request to perform one in the member's care plan. The medication reconciliation was unable to be completed. Notes: member has been sick Clinical Goals Goal: Blood pressure less than 130/80 mmHg Status: On Track Current Value: 114/65 Notes: limited readings Focus Area: Device Usage CoachingTargeted device usage coaching was shown because the member was not meeting device usage goals. Member's reason for not meeting device usage goals: Other member states she has been sick Clinical Coaching The member was coached on the following topics: General Education daily readings Next StepsConfirm Next Appointments Confirmed the next [place] appointment with the member on 2024-10-14 12:30 EDT. Post-Call DocumentationPerformed By Lori Hernandez Time spent 11 minutes. [email or web address] Not available 10/07/2024 12:47:38 10/14/2024 [id number] The member is cu [place]ly [place]. Pre-CallReview Readings Pre-call review started at 2024-10-14 12:38 EDT BP Cuff Readings: Blood Pressure 7-day average: 98 / 53 Blood Pressure 30-day average: 127 / 69 Review Notes Most recent nurse notes were reviewed. Most recent provider notes were reviewed. Clinical TopicsCall InitiationConnection Connected: The member answered our calls Recording Call The member was notified and acknowledged that the call is being recorded for quality and training purposes. Identity Confirmation The member s identity was confirmed using name and date of . Location Confirmation The member is currently located in [place]. The member is willing and able to complete the call. Clinical ReviewMember Readings Members readings were reviewed with the member Member Health Updates Member reported no allergy and/or medication changes Notes: no changes to report Member Height and Weight Height: 5 ft 2 in Weight: 163 Clinical Goals Goal: Blood pressure less than 130/80 mmHg Status: On Track Current Value: 127/69 Focus Area: Device Usage CoachingTargeted device usage coaching was shown because the member was not meeting device usage goals. Member's reason for not meeting device usage goals: Other member is going through chemo, had a bad reaction and was sick for a little bit Next StepsConfirm Next Appointments Confirmed the next [place] appointment with the member on 2024-10-21 12:30 EDT. Post-Call DocumentationPerformed By Lori Hernandez Time spent 10 minutes. [email or web address] Not available 10/14/2024 12:47:40 10/21/2024 [id number] Pre-CallReview Nikki gay Pre-call review started at 2024-10-21 12:42 EDT BP Cuff Readings: Blood Pressure 7-day average: 134 / 73 Blood Pressure 30-day average: 118 / 62 Review Notes Most recent nurse notes were reviewed. Most recent provider notes were reviewed. Clinical Topics Based on the assessment of the member's readings, the member's care plan was updated. Notes: NO ALERT IN THE PAST 30 DAYS Call InitiationConnection Connected: The member answered our calls Care Message The member was sent the following care message via SMS after reviewing their chart: Alvin Erwin, this is Nurse Brinda with [facility]. Sorry, we was unable to complete your appointment today. I've reviewed your chart. It's great to see your progress! Please continue your current plan. Let's discuss my review at your next scheduled appt on 10/28/2024 12:30-1:30 PM EDT. Recording Call The member was not notified of the call being recorded. Identity Confirmation The member's identity was not confirmed. Location Confirmation The member's location was not confirmed. The call ended early due to being unable to confirm the member's identity.Clinical Goals Goal: Blood pressure less than 130/80 mmHg Status: On Track Current Value: 118/62 Next StepsConfirm Next Appointments Confirmed the next [place] appointment with the member on 2024-10-28 12:30 EDT. Post-Call DocumentationPerformed By Brinda Carlos Time spent 10 minutes. Additional Details Member said that she is currently going through chemo, and she is sick a lot which causes her to sleep a lot throughout the day. Member said that is the reason why she hasn't been taking her blood pressure readings. Member said that she needs the rest of this month off to try, and get better so that she can start back taking her blood pressure readings. Member would like [place] to start back calling in November. Informed member that this nurse will notate her chart and [place] calls will start back in November. Member was very appreciative. Member verbalized understanding and doesn't have any questions or concerns at this time. [email or web address] Not available 10/21/2024 12:52:18 11/13/2024 [id number] Pre-CallReview Nikki gay Pre-call review started at 2024-11-13 10:33 EDT BP Cuff Readings: No BP readings in the past 7 days. Blood Pressure 30-day average: 132 / 71 Review Notes Most recent nurse notes were reviewed. Most recent provider notes were reviewed. Clinical Topics Based on the assessment of the member's readings, the member's care plan was updated. Notes: Member systolic above goal average Call InitiationConnection Connected: The member answered our calls Care Message The member was sent the following care message via SMS after reviewing their chart: Alvin Erwin, this is Nurse Parry with [facility].I am sorry our call was brief. I've reviewed your chart. I've updated your care plan to go over ways we can help you reach your goals. Let's discuss my review at your next scheduled appt on 11/18/2024 12:30-1:30 PM EDT. Recording Call The member was not notified of the call being recorded. Identity Confirmation The member's identity was not confirmed. Location Confirmation The member's location was not confirmed. The call ended early due to being unable to confirm the member's identity.Clinical Goals Goal: Blood pressure less than 130/80 mmHg Status: Off Track Current Value: 132/71 Notes: No blood pressure readings in the past 7 days Next StepsConfirm Next Appointments Confirmed the next [place] appointment with the member on 2024-11-18 12:30 EDT. Post-Call DocumentationPerformed By Brinda Carlos Time spent 9 minutes. Additional Details Member said that she currently found out that she has cancer somewhere else as well in her body, and she is currently leaving the cancer doctor from an appointment. Member said that she is going to have to do another treatment plan for the cancer an will need another month off. Asked member if she wanted to discontinue services until she gets everything situated with her cancers and restart program. Member said that would be best. Informed member that this nurse will put in an cancellation request, and [employer] will send out an box to collect the equipment. Member verbalized understanding and doesn't have any questions or concerns at this time. [email or web address] Not available 11/13/2024 10:42:14 Reason for Referral None Reported. Problems Name Problem SNOMED Code Status Onset Date Resolution Date Notes Provider Name and Address Organization Details Recorded Time Hypertensi ve disorder 90503991 Active 2023 KATHY BO NP [address] , [place], [address], [place] - [facility] 4 15:06:02 Lupus erythemato leeanne 402016904 Active 2023 KATHY BO NP [address] , [place], [address], [place] - [facility] 4 15:06:12 Body mass index 30+ - obesity 624811199 Active 2023 KATHY BO NP [address] , [place], [address], [place] - [facility] 4 15:06:26 Tobacco user 648926925 Active 2023 currently trying to quit KATHY BO, [facility] [address] , [place], [address], [facility] 4 15:06:42 Hyperlipid emia 87453151 Active 2023 KATHY BO [facility] [address] , [place], [address], [facility] 4 15:06:53 Rheumatoid arthritis 64385807 Active 2023 KATHY BOJORDAN [address] , [place], [address], [facility] 4 15:08:09 Essential hypertensi on 30134245 Active 2023 K[address]Y [address]JORDAN [address] , [place], [address], [facility] 4 15:09:15 Problem Notes None recorded. Medical Equipment None Reported. Allergies Allergen ID Allergen Name Allergen Category Reaction Reaction Severity Criticality Documentation Date Start Date Code Code System Note Provider Name and Address Organization Details Recorded Time 71097 codeine medicatio n Not available Not available Not available 01/16/2024 2670 RxNorm Sylvia Ndiaye null, [facility] 4 10:53:37 Medications Name Sig Start Date Stop Date Status Note LastModified by Organization Details LastModified Time meloxicam 15 mg tablet TAKE 1 TABLET BY MOUTH EVERY DAY NEEDED 07/15 completed Not Available Not Available Not Available alendronate 70 mg tablet TAKE 1 TABLET BY MOUTH 1 TIME A WEEK DIRECTED 01/15 completed Not Available Not Available Not Available bupropion HCl 75 mg tablet TAKE 1 TABLET BY MOUTH TWICE DAILY active Not Available Not Available No t Available gabapentin 300 mg capsule TAKE ONE CAPSULE BY MOUTH TWO TIMES DAILY PRN 02/05 completed Not Available Not Available Not Available irbesartan 150 mg tablet TAKE 1 TABLET BY MOUTH DAILY 01/15 completed Not Available Not Available Not Available hydroxychlo roquine 200 mg tablet TAKE 1 TABLET BY MOUTH TWICE DAILY active Not Available Not Available No t Available cefdinir 300 mg capsule Take 1 capsule twice a day by oral route as directed. 10/07 completed Not Available Not Available Not Available irbesartan 300 mg tablet TAKE 1 TABLET BY MOUTH DAILY active Not Available Not Available No t Available rosuvastati n 40 mg tablet TAKE 1 TABLET BY MOUTH DAILY active Not Available Not Available No t Available Vitals None Recorded Social History Question Answer Notes LastModified by Organizat ion Details LastModified Time Tobacco Smoking Status Current Every Day Smoker Trying to quit now. KATHY BO NP [address], [place], [address], [facility] 02/06/2024 14:59:37 What Is Your Level Of Caffeine Consumption? Occasional Information not available 02/06/2024 How Much Tobacco Do You Smoke? 0.25 PPD [email or web address] Information not available 02/06/2024 Sex: Female Functional Status Question Answer Note LastModified by Organization D etails LastModified Time What is your level of alcohol consumption? None [email or web address] Information not available 02/06/2024 Mental Status None recorded. Family History Nothing Reported. Medical History Condition Response Anxiety Disorder N Diabetes N Coronary Artery Disease N Other Obesity Y Hyperthyroidism N Congestive Heart Failure (CHF) N Cancer N Stroke N Asthma N COPD N Hypothyroidism N Depression N Sleep Apnea Y High Cholesterol Y Neuropathy N Hypertension Y Kidney Disease N Gynecological HistoryNo gynecological history recorded. Obstetrics History GPAL:G 0 P 0 0 0 0 Past Encounters Encounter ID Performer Location Encounter Start Date Encounter Closed Date Diagnosis/Indication Diagnosis SNOMED-CT Code Diagnosis ICD10 Code Diagnosis Note [id number] Daryl rodriguez PS_Provid er Schedule [address] [place] [address] 01/16/2024 10:50:08 05/22/2024 04:27:20 [id number] KATHY BO NP [facility]_Provid er Schedule [address] [place] [address] 02/06/2024 14:37:42 02/06/2024 15:10:31 Essential hypertension 48757668 I10 -Start Remote Patient Monitoring -Continue all current medication s. -Incorpora te diet, exercise, and stress management into daily routine. -Start to check BP 1 times daily before meds. -Highlight ed importance of BP reading technique. -Follow-up with nurse for RPM visits. [id number] JORDAN SINGH_Nursin g Schedule [address] [place] [address] 02/26/2024 13:03:42 02/26/2024 13:12:50 Essential hypertension 66550548 I10 [id number] JORDAN Stephesn_Nursin g Schedule [address] [place] [address] 04/15/2024 12:59:59 04/15/2024 13:17:13 Tobacco user 258980524 Z72.0 Essential hypertension 49180419 I10 [id number] JORDAN Stephensin g Schedule [address] [place] [address] 04/22/2024 12:21:26 04/22/2024 12:34:42 Essential hypertension 81366444 I10 [id number] JORDAN Stephens_Nursin g Schedule [address] [place] [address] 05/06/2024 12:38:17 05/06/2024 12:41:53 Essential hypertension 89255937 I10 [id number] JORDAN StephensNursin g Schedule [address] [place] [address] 05/08/2024 09:16:08 05/08/2024 09:18:58 Essential hypertension 70707692 I10 Essential hypertensi on [id number] JORDAN Stpehens_Nursin g Schedule [address] [place] [address] 05/13/2024 12:40:47 05/13/2024 12:55:51 Essential hypertension 45298172 I10 Essential hypertensi on 133841 JORDAN Stephens_Nursin g Schedule [address] [place] [address] 05/21/2024 13:01:04 05/21/2024 13:18:47 Essential hypertension 25032944 I10 Essential hypertensi on 773765 JORDAN Stephens_Nursin g Schedule [address] [place] [address] 05/27/2024 12:49:13 05/27/2024 13:06:02 Essential hypertension 30338468 I10 Essential hypertensi on 715572 Dorcas Madrid, [employer] [facility] NS_Nursin g Schedule [address] [place] [address] 06/03/2024 12:35:12 06/03/2024 12:38:00 Essential hypertension 81055554 I10 Essential hypertensi on 605452 Dorcasvianey Madrid, [employer] [facility] NS_Nursin g Schedule [address] [place] [address] 06/04/2024 10:43:59 06/04/2024 10:47:03 Essential hypertension 18681185 I10 Essential hypertensi on 200549 Dorcas Madrid, JORDAN NS_Nursin g Schedule [address] [place] [address] 06/10/2024 08:59:01 06/10/2024 09:00:11 Essential hypertension 50021743 I10 Essential hypertensi on Hypertensive disorder 38 358764 I10 Hypertensi ve disorder 032458 Dorcasvianey Madrid, [employer] [facility] NS_Nursin g Schedule [address] [place] [address] 06/13/2024 12:47:06 06/13/2024 12:51:47 Essential hypertension 70846298 I10 Essential hypertensi on 648078 Dorcasvianey Madrid, [employer] [facility] NS_Nursin g Schedule [address] [place] [address] 06/24/2024 12:33:44 06/24/2024 12:40:28 Essential hypertension 15845327 I10 Essential hypertensi on Hypertensive disorder 38 468021 I10 Hypertensi ve disorder 650542 Dorcas Madrid, [employer] [facility] NS_Nursin g Schedule [address] [place] [address] 07/15/2024 12:50:01 07/15/2024 13:00:17 Essential hypertension 33579127 I10 Essential hypertensi on 953424 Dorcas Madrid, [employer] [facility] NS_Nursin g Schedule [address] [place] [address] 07/22/2024 12:50:55 07/22/2024 12:57:58 Essential hypertension 40727466 I10 Essential hypertensi on Hypertensive disorder 38 853458 I10 Hypertensi ve disorder 550488 Dorcas Madrid, [employer] [facility] NS_Nursin g Schedule [address] [place] [address] 07/29/2024 12:39:51 07/29/2024 12:52:29 Essential hypertension 10527005 I10 Essential hypertensi on 877047 Dorcas Madrid, [employer] [facility] NS_Nursin g Schedule [address] [place] [address] 08/05/2024 12:39:44 08/05/2024 12:54:56 Essential hypertension 58759843 I10 Essential hypertensi on 869104 Dorcas Madrid, [employer] [facility] NS_Nursin g Schedule [address] [place] [address] 08/12/2024 12:53:57 08/12/2024 13:06:32 Essential hypertension 81663466 I10 Essential hypertensi on 902905 Dorcas Madrid, [employer] [facility] NS_Nursin g Schedule [address] [place] [address] 08/19/2024 13:22:22 08/19/2024 13:39:51 Essential hypertension 25290692 I10 Essential hypertensi on 051128 Dorcas Madrid, [employer] [facility] NS_Nursin g Schedule [address] [place] [address] 08/26/2024 10:11:36 08/26/2024 10:14:43 Essential hypertension 43101890 I10 Essential hypertensi on Hypertensive disorder 38 968356 I10 Hypertensi ve disorder 260026 Dorcas Madrid, [employer] [facility] NS_Nursin g Schedule [address] [place] [address] 08/27/2024 12:12:35 08/27/2024 12:23:59 Essential hypertension 74854074 I10 Essential hypertensi on 774158 Dorcas Madrid, [employer] [facility] NS_Nursin g Schedule [address] [place] [address] 09/09/2024 13:12:58 09/09/2024 13:26:05 Essential hypertension 94828660 I10 Essential hypertensi on 637503 Dorcas Madrid NP NS_Nursin g Schedule [address] [place] [address] 09/30/2024 13:08:35 09/30/2024 13:20:33 Essential hypertension 87327943 I10 Essential hypertensi on Hypertensive disorder 38 211866 I10 Hypertensi ve disorder 214150 Dorcas Madrid NP NS_Nursin g Schedule [address] [place] [address] 10/07/2024 12:36:50 10/07/2024 12:47:38 Essential hypertension 90177577 I10 Essential hypertensi on Hypertensive disorder 38 428425 I10 Hypertensi ve disorder 336477 Dorcas Madrid NP NS_Nursin g Schedule [address] [place] [address] 10/14/2024 12:38:02 10/14/2024 12:47:40 Essential hypertension 69189837 I10 Essential hypertensi on Hypertensive disorder 38 547393 I10 Hypertensi ve disorder 880135 Dorcas Madrid NP NS_Nursin g Schedule [address] [place] [address] 10/21/2024 12:42:22 10/21/2024 12:52:19 Essential hypertension 15612606 I10 Essential hypertensi on 081831 Dorcas Madrid NP NS_Nursin g Schedule [address] [place] [address] 11/13/2024 10:33:07 11/13/2024 10:42:15 Essential hypertension 57232084 I10 Essential hypertensi on Goals Section Goal Description Progress Status Start Date LastModified by Organization Details LastModified Time Patient demonstrate s understandi ng of beneficial diet and exercise plan Will perform moderate exercises as tolerated and continue drinking 64oz of water daily for hydration. no-change active 2023 Brinda Carlos Information not available 04/22/2024 17:32:02 Patient's blood pressure is at baseline None Recorded worsening active 2023 Brinda Carlos Information not available 04/22/2024 17:32:18 Health Concerns Section Related Observation LastModified by Organization Detai ls LastModified Time None Recorded Concern Status LastModified by Organization Details LastModified Time None Recorded Advance Directives Directive None Recorded Payers Insurance Date Sequence Insurance Name Policy Number Policy Jackosn Covered Member ID Jackson Member ID Guarantor Name 11/13/2024 1 [employer] (MEDICARE REPLACEMENT/ ADVANTAGE - PPO) Yaima Pritchard [id number] Yaima Pritchard OBGyn Episode No OBEpisode recorded.
--- OUTSIDE RECORDS SUMMARY | 2024-11-21 09:30 | XMS_ITS | Encounter Summary ---
Author Organization [facility] Address [address] [place] [address] Care Team Providers Care Woodworker Name Role Phone Luis Hatfield MD Primary Care Provider [phone] Encounter Details Date Type Department Care Team (Late st Contact Info) Description 09/20/2024 Orders Only External Location [address] [place] [address] Provider, External Social History Tobacco Use Types [...] any time in the past 12 m [facility], were you homeless or living in a [place] [facility] facility (including now)? No 09/23/2024 CAGE ASSESSMENT Answer [...] drink first t kimberlyn in the morning (EYE-COURTESY VAN DRIVER) to steady your nerves or to get [...] Appointment [facility] Interventional Radiology [address] [place] [address] 01/15/2025 4:30 PM EDT Office Visit [facility] [address] [place] [address] Ochoa Matias MD [address] [facility] [address] [place] [address] documented as of this encounter Procedures Procedure [...] documented as of this encounter Care Teams Woodworker Relationship Specialty Start Date End Date Luis Hatfield MD [address] [place] [id number] PCP - General 07/24/24 documented as of this encounter
--- OUTSIDE RECORDS SUMMARY | 2024-11-21 09:30 | XMS_ITS | Encounter Summary ---
Author Organization [facility] Address [address] [place] [address] Care Team Providers Care Data Software Engineer Name Role Phone Luis Hatfield MD Primary Care Provider [phone] Encounter Details Date Type Department Care Team (Late st Contact Info) Description 09/20/2024 Orders Only External Location [address] [place] [address] Provider, External Social History Tobacco Use Types [...] were you homeless or living in a chcf (including now)? 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 [address] [place] [address] documented as of this encounter Procedures Procedure [...] documented as of this encounter Care Teams Data Software Engineer Relationship Specialty Start Date End Date Luis Hatfield MD [address] [place] [id number] PCP - General 07/24/24 documented as of this encounter
--- OUTSIDE RECORDS SUMMARY | 2024-11-21 09:30 | XMS_ITS | Continuity of Care Document ---
Author Organization [place] [facility] Address [address] [place] [address] Care Team Providers Care Triage Nurse Name Role Phone DENA HERNANDEZ Primary Care Provider [phone] Assessment No assessment recorded. Plan of Treatment [...] Modified By Organization Details Last Modified Time 10/14/2024 [id number] The member is cu rrently located in [place]. Pre-CallReview Readings Pre-call review started at 2024-10-14 [...] Confirmation The member is currently located in [place]. The member is willing and able to [...] 10 minutes. [email or web address] Not available 10/14/2024 12:47:40 Reason for Referral None Reported. Problems Name Problem SNOMED Code Status Onset Date Resolution Date Notes Provider Name and Address Organization Details Recorded Time Hypertensi ve disorder 94858872 Active 2023 KATHY BO NP [address] , [place], [address], [place] [facility] 4 15:06:02 Lupus erythemato leeanne 437859761 Active 2023 KATHY BO NP [address] , [place], [address], [place] [facility] 4 15:06:12 Body mass index 30+ - obesity 357114667 Active 2023 KATHY BO NP [address] , [place], [address], [place] [facility] 4 15:06:26 Tobacco user 630129591 Active 2023 currently trying to quit KATHY BO NP [address] , [place], [address], [place] [facility] 4 15:06:42 Hyperlipid emia 05877942 Active 2023 KATHY BO NP [address] , [place], [address], [place] [facility] 4 15:06:53 Rheumatoid arthritis 59399985 Active 2023 KATHY BO NP [address] , [place], [address], [place] [facility] 4 15:08:09 Essential hypertensi on 63240254 Active 2023 LYNSY BO, COMPLIANCE PARALEGAL [address] , [place], [address], [facility] 4 15:09:15 Problem Notes None recorded. Medical Equipment None Reported. Allergies Allergen ID Allergen Name Allergen Category Reaction Reaction Severity Criticality Documentation Date Start Date Code Code System Note Provider Name and Address Organization Details Recorded Time 58458 codeine medicatio n Not available Not available Not available 01/16/2024 2670 RxNorm Sylvialynnette Mcgeer null, [facility] 4 10:53:37 Medications Name Sig Start Date [...] Day Smoker Trying to quit now. KATHY BO, COMPLIANCE PARALEGAL [address], [place], [address], [facility] 02/06/2024 14:59:37 What Is Your Level Of Caffeine Consumption? Occasional Information not available 02/06/2024 How Much Tobacco Do You Smoke? 0.25 PPD Information not available 02/06/2024 Sex: Female Functional Status Question Answer Note LastModified by Organization D etails LastModified Time What is your level of alcohol consumption? None [email or web address] Information not available 02/06/2024 Mental Status None [...] SNOMED-CT Code Diagnosis ICD10 Code Diagnosis Note [id number] Dorcas Madrid NP [facility]urs[facility] Schedule [address] [place] [address] 09/30/2024 13:08:35 09/30/2024 13:20:33 Essential hypertension 07983754 I10 Essential hypertensi on Hypertensive disorder 38 341703 I10 Hypertensi ve disorder 785698 Dorcas Madrid NP [facility]urs[facility] Schedule [address] [place] [address] 10/07/2024 12:36:50 10/07/2024 12:47:38 Essential hypertension 91165762 I10 Essential hypertensi on Hypertensive disorder 38 032782 I10 Hypertensi ve disorder 881003 Dorcas Madrid NP [facility]urs[facility] Schedule [address] 6 10/14/2024 12:38:02 10/14/2024 12:47:40 Essential hypertension 60448528 I10 Essential hypertensi on Hypertensive disorder 38 128233 I10 Hypertensi ve disorder Goals Section Goal Description Progress Status Start [...] by Organization Details LastModified Time None Recorded Payers Encounter Date Sequence Insurance Name Policy Number Policy Jackson Covered Member ID Jackson Member ID Guarantor Name 10/14/2024 1 [employer] (MEDICARE REPLACEMENT/ ADVANTAGE - PPO) Yaima Pritchard [id number] Yaima Pritchard OBGyn Episode No OBEpisode recorded.
--- OUTSIDE RECORDS SUMMARY | 2024-11-21 09:30 | XMS_ITS | Encounter Summary ---
Author Organization [facility] Address [address] [place] [address] Care Team Providers Care Saddle Stitcher Name Role Phone Luis Hatfield MD Primary Care Provider [phone] Encounter Details Date Type Department Care Team (Late st Contact Info) Description 09/20/2024 Orders Only External Location [address] [place] [address] Provider, External Social History Tobacco Use Types [...] any time in the past 12 m [facility], were you homeless or living in a mcc (including now)? No 09/23/2024 CAGE ASSESSMENT Answer [...] drink first t kimberlyn in the morning (EYE-CRIB ATTENDANT) to steady your nerves or to get [...] Appointment [facility]AV A Interventional Radiology [address] [place] [address] 01/15/2025 4:30 PM EDT Office Visit [facility] [address] [place] [address] Ochoa Matias MD [address] [facility] [address] [place] [address] documented as of this encounter Procedures Procedure [...] documented as of this encounter Care Teams Saddle Stitcher Relationship Specialty Start Date End Date Luis Hatfield MD [address] [place] [id number] PCP - General 07/24/24 documented as of this encounter
--- OUTSIDE RECORDS SUMMARY | 2024-11-21 09:30 | XMS_ITS | Encounter Summary ---
Author Organization Healthcare Address [address] [place] [address] Care Team Providers Care Embedded Software Test Engineer Name Role Phone Luis Hatfield MD Primary Care Provider [phone] Encounter Details Date Type Department Care Team (Late st Contact Info) Description 11/01/2024 Telephone [facility] [address] [place] [address] Ochoa Matias MD [address] [facility] [address] [place] [address] Social History Tobacco Use Types Packs/Day Years [...] any time in the past 12 m [facility], were you homeless or living in a custodial (including now)? No 09/23/2024 CAGE ASSESSMENT Answer [...] drink first t kimberlyn in the morning (EYE-SQL SERVER CONSULTANT) to steady your nerves or to get [...] encounter Miscellaneous Notes * Telephone Encounter - Margareth Mackenzie - 11/01/2024 1:17 PM EDT Patient Phone Message Reason for Call: Juan Antonio from OT says he was not able to see Ms. Pritchard this week due to her having other appointments. They will resume the visits as normal next week. He says he does not need a call back but wanted to make sure this was noted. Best contact number and optimal time of day to reach caller: Note: Please do not reply to this message. Follow-up communication and further actions as a result of this message need to be communicated with the patient directly, if the patient is not active onMyChart. If the patient is active on MyChart, they will receive notification of the communication/outcome via ShareTrackerhart. documented in this encounter Plan of Treatment Upcoming Encounters Date Type Department Care Team (Late st Contact Info) Description 01/08/2025 9:30 AM EDT Appointment PAV A Interventional Radiology [address] [place] [address] 01/15/2025 4:30 PM EDT Office Visit [facility] [address] [place] [address] Ochoa Matias MD [address] [facility] [address] [place] [address] documented as of this encounter Visit Diagnoses [...] documented as of this encounter Care Teams Embedded Software Test Engineer Relationship Specialty Start Date End Date Luis Hatfield MD [address] [place] [phone] PCP - General 07/24/24 documented as of this encounter
--- OUTSIDE RECORDS SUMMARY | 2024-11-21 09:30 | XMS_ITS | Encounter Summary ---
Author Organization [facility] Address [address] [place] [address] Care Team Providers Care Molded Goods Embossing Press Operator Name Role Phone Luis Hatfield MD Primary Care Provider [phone] Encounter Details Date Type Department Care Team (Late st Contact Info) Description 09/20/2024 Orders Only External Location [address] [place] [address] Provider, External Social History Tobacco Use Types [...] any time in the past 12 m [facility], were you homeless or living [...] drink first t kimberlyn in the morning (EYE-ASSEMBLER CAMPER) to steady your nerves or to get [...] Appointment [facility]AV A Interventional Radiology [address] [place] [address] 01/15/2025 4:30 PM EDT Office Visit [facility] [address] [place] [address] Ochoa Matias MD [address] [facility] [address] [place] [address] documented as of this encounter Procedures Procedure Name Priority Date/Time Associated Diagnosis Comments CT ABDOMEN OUTSIDE IMAGES 09/20/2024 12:35 PM EDT documented in this encounter Results * CT ABDOMEN OUTSIDE IMAGES (09/20/2024 12:35 PM EDT) Anatomical [...] documented as of this encounter Care Teams Molded Goods Embossing Press Operator Relationship Specialty Start Date End Date Luis Hatfield MD [address] [place] [phone] PCP - General 07/24/24 documented as of this encounter
--- OUTSIDE RECORDS SUMMARY | 2024-11-21 09:30 | XMS_ITS | Encounter Summary ---
Author Organization [facility] Address [address] [place] [address] Care Team Providers Care Train Gateman Name Role Phone Luis Hatfield MD Primary Care Provider [phone] Encounter Details Date Type Department Care Team (Late st Contact Info) Description 09/20/2024 Orders Only External Location [address] [place] [address] Provider, External Social History Tobacco Use Types [...] time in the past 12 m [facility], were you homeless or living in a mcfp (including now)? No 09/23/2024 CAGE ASSESSMENT Answer [...] drink first t kimberlyn in the morning (EYE-RELIEF PILOT) to steady your nerves or to get [...] Appointment PAV A Interventional Radiology [address] [place] [address] 01/15/2025 4:30 PM EDT Office Visit [facility] [address] [place] [address] Ochoa Matias MD [address] [facility] [address] [place] [address] documented as of this encounter Procedures Procedure [...] documented as of this encounter Care Teams Train Gateman Relationship Specialty Start Date End Date Luis Hatfield MD [address] [place] [id number] PCP - General 07/24/24 documented as of this encounter
--- OUTSIDE RECORDS SUMMARY | 2024-11-21 09:31 | XMS_ITS | Encounter Summary ---
Author Organization [facility] Address [address] [place] [address] Care Team Providers Care Barkeeper Name Role Phone Luis Hatfield MD Primary Care Provider [phone] Encounter Details Date Type Department Care Team (Latest Contact Info) Description 10/09/2024 Travel Social History Tobacco Use Types Packs/Day Years [...] time in the past 12 m [facility], were you homeless or living in a [...] drink first t kimberlyn in the morning (EYE-FOOD OPERATIONS MANAGER) to steady your nerves or to get rid of a hangover? 0 09/11/2024 CAGE Questionnaire Score 0 025 Utilities Answer Date Recorded In the past 12 months has th e Managed Objects, gas, oil, or water company threatened to shut off services in your home? No 09/23/2024 Comments No Sex and Gender Information Value Date Recorded Sex Assigned at Female 07/22/2024 7:36 PM EST Legal Sex Female 8:37 PM EDT Gender Identity Female 07/22/2024 11:10 PM EST Sexual Orientation Straight 07/22/2024 11 :10 PM EST documented as of this encounter Functional Status * Over the past 2 weeks, how often have you been bothered by any of the following problems? Question Answer Date of Assessment Author Little interest or pleasure in doing things Not at all 10/09/2024 12:34 PM Rebecca Freitas Feeling down, depressed, or hopeless Not at all 10/09/2024 12:34 PM Rebecca Freitas Patient Health Questionnaire -2 Score 0 10/09/2024 12:34 PM SHIVANIT Rebecca Bocanegra * Question Answer Date of Assessment Author Trouble falling or staying asleep, or sleeping too much Not at all 10/09/2024 12:34 PM EDT Rebecca Olmos Feeling tired or having darek le energy Not at all 10/09/2024 12:34 PM SHIVANIT Rebecca Bocanegra Poor appetite or overeating Not at all [...] usual. Not at all 10/09/2024 12:34 PM EDT Rebecca Solitario Thoughts that you would be [...] at all 10/09/2024 12:34 PM Maco Freitas documented as of this encounter Plan of Treatment Upcoming Encounters Date Type Department Care Team (Late st Contact Info) Description 01/08/2025 9:30 AM EDT Appointment PAV A Interventional Radiology [address] [place] [facility] [place] [address] 01/15/2025 4:30 PM EDT Office Visit [facility] [address] [place] [address] Ochoa Matias MD [address] [place] [address] documented as of this encounter Visit Diagnoses [...] documented as of this encounter Care Teams Barkeeper Relationship Specialty Start Date End Date Luis Hatfield MD [address] [facility] [address] [place] [address] PCP - General 07/24/24 documented as of this encounter
--- OUTSIDE RECORDS SUMMARY | 2024-11-21 09:31 | XMS_ITS | Continuity of Care Document ---
Author Organization [place] - [facility] Address [address] [place] [address] Care Team Providers Care Lpn Care Manager Name Role Phone DENA HERNANDEZ Primary Care [...] Modified By Organization Details Last Modified Time 10/21/2024 [id number] Pre-CallRejannie gay Pre-call review started at 2024-10-21 12:42 [...] Alvin Erwin, this is Nurse Brinda with [facility]. Sorry, we was unable to complete your [...] this time. [email or web address] Not available 10/21/2024 12:52:18 Reason for Referral None Reported. Problems Name Problem SNOMED Code Status Onset Date Resolution Date Notes Provider Name and Address Organization Details Recorded Time Hypertensi ve disorder 85881451 Active 2023 KATHY BO NP [address] , [place], [address], [place] [facility] 4 15:06:02 Lupus erythemato leeanne 776401991 Active 2023 KATHY OB NP [address] , [place], [address], [place] [facility] 4 15:06:12 Body mass index 30+ - obesity 031320406 Active 2023 KATHY BO NP [address] , [place], [address], [place] [facility] 4 15:06:26 Tobacco user 599817720 Active 2023 currently trying to quit KATHY BO NP [address] , [place], [address], [place] [facility] 4 15:06:42 Hyperlipid emia 21863580 Active 2023 KATHY BO NP [address] , [place], [address], [facility] 4 15:06:53 Rheumatoid arthritis 09361690 Active 2023 KATHY BO NP [address] , [place], [address], [facility] 4 15:08:09 Essential hypertensi on 84986946 Active 2023 KATHY BO NP [address] , [place], [address], [facility] 4 15:09:15 Problem Notes None recorded. Medical Equipment None Reported. Allergies Allergen ID Allergen Name Allergen Category Reaction Reaction Severity Criticality Documentation Date Start Date Code Code System Note Provider Name and Address Organization Details Recorded Time 00267 codeine medicatio n Not available Not available Not available 01/16/2024 2670 RxNorm Sylvia Credeur [facility], [facility] 4 10:53:37 Medications Name Sig Start Date [...] BO NP [address], [place], [address], [facility] - [facility] 02/06/2024 14:59:37 What Is Your Level Of Caffeine Consumption? Occasional [email or web address] Information not available 02/06/2024 How Much Tobacco Do You Smoke? 0.25 PPD Information not available 02/06/2024 Sex: Female Functional Status Question Answer Note LastModified by Organization D etails LastModified Time What is your level of alcohol consumption? None Information not available 02/06/2024 Mental Status None recorded. Family History Nothing Reported. Medical History Condition Response Coronary Artery Disease N Other Hyperthyroidism N COPD N Depression N Hypothyroidism N Anxiety Disorder N Obesity Y Cancer N Stroke N High Cholesterol Y Kidney Disease N Diabetes N Congestive Heart Failure (CHF) N Asthma N Sleep Apnea Y Neuropathy N Hypertension Y Gynecological HistoryNo gynecological history recorded. Obstetrics History GPAL:G 0 P 0 0 0 0 Past Encounters Encounter ID Performer Location Encounter Start Date Encounter Closed Date Diagnosis/Indication Diagnosis SNOMED-CT Code Diagnosis ICD10 Code Diagnosis Note [id number] JORDAN [facility] Schedule [address] [place] [address] 09/30/2024 13:08:35 09/30/2024 13:20:33 Essential hypertension 15983023 I10 Essential hypertensi on Hypertensive disorder 38 963439 I10 Hypertensi ve disorder [id number] JORDAN Stephens_Nursin g Schedule [address] [place] [address] 10/07/2024 12:36:50 10/07/2024 12:47:38 Essential hypertension 27620647 I10 Essential hypertensi on Hypertensive disorder 38 715761 I10 Hypertensi ve disorder [id number] JORDAN [facility]_Nursin [facility] Schedule [address] [place] [address] 10/14/2024 12:38:02 10/14/2024 12:47:40 Essential hypertension 39382686 I10 Essential hypertensi on Hypertensive disorder 38 029138 I10 Hypertensi ve disorder [id number] Dorcas Madrid, JORDAN [facility]Nursin [facility] Schedule [address] [place] [address] 10/21/2024 12:42:22 10/21/2024 12:52:19 Essential hypertension 16450598 I10 Essential hypertensi on Goals Section Goal [...] Member ID Jackson Member ID Guarantor Name 10/21/2024 1 [employer] (MEDICARE REPLACEMENT/ ADVANTAGE - PPO) Yaima Pritchard [id number] Yaima Pritchard OBGyn Episode No OBEpisode recorded.
--- OUTSIDE RECORDS SUMMARY | 2024-11-21 09:31 | XMS_ITS | Continuity of Care Document ---
Author Organization [place] [facility] Address [address] [place] [address] Care Team Providers Care Stamp Classifier Name Role Phone DENA HERNANDEZ Primary Care [...] By Organization Details Last Modified Time 09/30/2024 [id number] The member is cu rrently located in [place]. Pre-CallReview Readings Pre-call review started at 2024-09-30 [...] Confirmation The member is currently located in [place]. The member is willing and able to [...] her chemo. [email or web address] Not available 09/30/2024 13:20:32 Reason for Referral None Reported. Problems Name Problem SNOMED Code Status Onset Date Resolution Date Notes Provider Name and Address Organization Details Recorded Time Hypertensi ve disorder 94472811 Active 2023 KATHY BO NP [address] , [place], [address], [email or web address] - [facility] 4 15:06:02 Lupus erythemato leeanne 837475264 Active 2023 KATHY BO NP [address] , [place], [address], [facility] [[email or web address] - [facility] 4 15:06:12 Body mass index 30+ - obesity 937528637 Active 2023 KATHY BO NP [address] , [place], [address], [facility] [[email or web address] - [facility] 4 15:06:26 Tobacco user 388269052 Active 2023 currently trying to quit KATHY BO NP [address] , [place], [address], [facility] [[email or web address] - [facility] 4 15:06:42 Hyperlipid emia 15672514 Active 2023 KATHY BO NP [address] , [place], [address], [facility] [[email or web address] - [facility] 4 15:06:53 Rheumatoid arthritis 46807570 Active 2023 KATHY BO NP [address] , [place], [address], [facility] [[email or web address] - [facility] 4 15:08:09 Essential hypertensi on 65070678 Active 2023 KATHY BO NP [address] , [place], [address], [facility] 4 15:09:15 Problem Notes None recorded. Medical Equipment None Reported. Allergies Allergen ID Allergen Name Allergen Category Reaction Reaction Severity Criticality Documentation Date Start Date Code Code System Note Provider Name and Address Organization Details Recorded Time 70596 codeine medicatio n Not available Not available Not available 01/16/2024 2670 RxNorm Sylvia Credeur null, [facility] 4 10:53:37 Medications Name [...] BO NP [address], [place], [address], [facility] 02/06/2024 14:59:37 What Is Your Level Of Caffeine Consumption? Occasional [email or web address] Information not available 02/06/2024 How Much Tobacco Do You Smoke? 0.25 PPD [email or web address] Information not available 02/06/2024 Sex: Female Functional Status Question Answer Note LastModified by Organization D etails LastModified Time What is your level of alcohol consumption? None [email or web address] Information not available 02/06/2024 Mental Status None recorded. Family History Nothing Reported. Medical History Condition Response Diabetes N Anxiety Disorder N Coronary Artery Disease N Obesity Y Other Hyperthyroidism N Congestive Heart Failure (CHF) N Cancer N Stroke N COPD N Depression N Asthma N Hypothyroidism N Sleep Apnea Y High Cholesterol Y Neuropathy N Hypertension Y Kidney Disease N Gynecological HistoryNo gynecological history recorded. Obstetrics History GPAL:G 0 P 0 0 0 0 Past Encounters Encounter ID Performer Location Encounter Start Date Encounter Closed Date Diagnosis/Indication Diagnosis SNOMED-CT Code Diagnosis ICD10 Code Diagnosis Note [id number] Dorcas MadridJORDAN NS[facility]Nursin g Schedule [address] [place] [address] 09/09/2024 13:12:58 09/09/2024 13:26:05 Essential hypertension 27531485 I10 Essential hypertensi on 212528 Dorcasvianey MadridJORDAN NS_Nursin g Schedule [address] [place] [address] 09/30/2024 13:08:35 09/30/2024 13:20:33 Essential hypertension 08950903 I10 Essential hypertensi on Hypertensive disorder 38 763667 I10 Hypertensi ve disorder Goals Section Goal [...] Member ID Jackson Member ID Guarantor Name 09/30/2024 1 [employer] (MEDICARE REPLACEMENT/ ADVANTAGE - PPO) Yaima Pritchard [id number] Yaima Pritchard OBGyn Episode No OBEpisode recorded.
--- OUTSIDE RECORDS SUMMARY | 2024-11-21 09:31 | XMS_ITS | Continuity of Care Document ---
Author Organization [facility], [facility] Schedule Address [address] [place] [address] Care Team Providers Care Cardiothoracic Anesthesia Technician Name Role Phone DENA HERNANDEZ Primary Care [...] Modified By Organization Details Last Modified Time 11/13/2024 [id number] Pre-CallRejannie gay Pre-call review started at 2024-11-13 10:33 [...] Alvin Erwin, this is Nurse Parry with [facility].I am sorry our call was brief. I've [...] Next StepsConfirm Next Appointments Confirmed the next AL appointment with the member on 2024-11-18 12:30 [...] will put in an cancellation request, and [employer] will send out an box to collect the equipment. Member verbalized understanding and doesn't have any questions or concerns at this time. [id number] Not available 11/13/2024 10:42:14 Reason for Referral None Reported. Problems Name Problem SNOMED Code Status Onset Date Resolution Date Notes Provider Name and Address Organization Details Recorded Time Hypertensi ve disorder 87556019 Active 2023 KATHY BO NP [address] , [place], [address], [place] - [facility] 4 15:06:02 Lupus erythemato leeanne 306389582 Active 2023 KATHY BO NP [address] , [place], [address], [place] - [facility] 4 15:06:12 Body mass index 30+ - obesity 488302106 Active 2023 KATHY BO NP [address] , [place], [address], [place] [facility] 4 15:06:26 Tobacco user 626534453 Active 2023 currently trying to quit KATHY BO NP [address] , [place], [address], [place] - [facility] 4 15:06:42 Hyperlipid emia 89416613 Active 2023 KATHY BO, RUSSET REPAIRER [address] , [place], [address], [facility] 4 15:06:53 Rheumatoid arthritis 99075476 Active 2023 KATHY BO, RUSSET REPAIRER [address] , [place], [address], [facility] 4 15:08:09 Essential hypertensi on 84507889 Active 2023 KATHY BO, RUSSET REPAIRER [address] , [place], [address], [facility] 4 15:09:15 Problem Notes None recorded. Medical Equipment None Reported. Allergies Allergen ID Allergen Name Allergen Category Reaction Reaction Severity Criticality Documentation Date Start Date Code Code System Note Provider Name and Address Organization Details Recorded Time 14305 codeine medicatio n Not available Not available Not available 01/16/2024 2670 RxNorm Sylvia Credeur null, [facility] 4 10:53:37 Medications Name Sig Start [...] BO NP [address], [place], [address], [facility] - [facility] 02/06/2024 14:59:37 What Is Your Level Of Caffeine Consumption? Occasional Information not available 02/06/2024 How Much Tobacco Do You Smoke? 0.25 PPD [email or web address] Information not available 02/06/2024 Sex: Female Functional Status Question Answer Note LastModified by Organization D etails LastModified Time What is your level of alcohol consumption? None [email or web address] Information not available 02/06/2024 Mental Status None [...] SNOMED-CT Code Diagnosis ICD10 Code Diagnosis Note [id number] JORDAN Stephens_Nursin g Schedule [address] [place] [address] 10/14/2024 12:38:02 10/14/2024 12:47:40 Essential hypertension 57417702 I10 Essential hypertensi on Hypertensive disorder 38 347358 I10 Hypertensi ve disorder 461309 Dorcas Madrid NP [facility] Schedule [address] [place] [address] 10/21/2024 12:42:22 10/21/2024 12:52:19 Essential hypertension 11756105 I10 Essential hypertensi on 720985 Dorcas Madrid NP [facility] Schedule [address] [place] [address] 11/13/2024 10:33:07 11/13/2024 10:42:15 Essential hypertension 77772133 I10 Essential hypertensi on Goals Section Goal [...] (MEDICARE REPLACEMENT/ ADVANTAGE - PPO) Yaima Pritchard [id number] Yaima Pritchard OBGyn Episode No OBEpisode recorded.
--- OUTSIDE RECORDS SUMMARY | 2024-11-21 09:31 | XMS_ITS | Encounter Summary ---
Author Organization Healthcare Address [address] [place] [address] Care Team Providers Care Desktop Engineer Name Role Phone Luis Hatfield MD Primary Care Provider [phone] Reason for Visit * Reason Onset Date Comments [facility] 09/25/2024 Encounter Details Date Type Department Care Team ([facility] st Contact Info) Description 09/25/2024 Telephone [facility] [address] [place] [address] Ochoa Matias MD [address] [place] [address] [facility] Social History Tobacco Use Types Packs/Day Years Used Date Smoking Tobacco: Every Day Cigarettes 0.1 51.4 Started: 1975 Smokeless Tobacco: Never Alcohol Use Standard [...] in the past 12 m [facility], were you homeless or living in a half-way (including now)? No 09/23/2024 CAGE ASSESSMENT Answer [...] drink first t kimberlyn in the morning (EYE-SHELL PLATER) to steady your nerves or to get [...] * Telephone Encounter - Phyllis Burgess - 09/27/2024 10:48 AM EDT Attempt 4: Care Guide (CG) called patient (pt) at . No answer. LVM. Final attempt. * Telephone Encounter - Phyllis Burgess - 09/27/2024 10:46 AM EDT Attempt 3: Care Guide (CG) called patient (pt) at and successfully reached pt's , however, he requested I call her at [phone] and said he would give her a message that I called. * Telephone Encounter - Phyllis Burgess - 09/26/2024 3:57 PM EDT Attempt 2: Care Guide (CG) called patient (pt) at . No answer and no voicemail. CG will attempt again. * Telephone Encounter - Phyllis Burgess - 09/25/2024 10:28 AM EDT Attempt 1: Care Guide (CG) called patient (pt) at . No answer and no voicemail. CG will attempt again. documented in this encounter Plan of Treatment Upcoming Encounters Date Type Department Care Team (Late st Contact Info) Description 01/08/2025 9:30 AM EDT Appointment [facility] A Interventional Radiology [address] [place] [address] 01/15/2025 4:30 PM EDT Office Visit [facility] [address] [place] [address] Ochoa Matias MD [address] [place] [address] documented as of this encounter Visit Diagnoses [...] documented as of this encounter Care Teams Desktop Engineer Relationship Specialty Start Date End Date Luis Hatfield MD [address] [address] PCP - General 07/24/24 documented as of this encounter
--- OUTSIDE RECORDS SUMMARY | 2024-11-21 09:31 | XMS_ITS | Encounter Summary ---
Author Organization Healthcare Address [address] [place] [address] Care Team Providers Care Cable Television Line Technician Name Role Phone Luis Hatfield MD Primary Care Provider [phone] Encounter Details Date Type Department Care Team (Late st Contact Info) Description 08/19/2024 Lab Requisition [facility] [address] [place] [address] Ochoa Matias MD [address] [place] [address] Malignant neoplasm of bladder, unspecified (CMS/HCC) Social History Tobacco Use Types Packs/Day Years Used Date Smoking Tobacco: Every Day Cigarettes 0.5 25.4 Started: 1999 Smokeless Tobacco: Never Alcohol Use Standard Drinks/Week Comments Never 0 (1 standard drink = 0.6 oz pur e alcohol) Humiliation, Afraid, Rape, and Kick questionnair e Answer Date Recorded Within the last year, have y ou been afraid of your partner or ex-partner? No 07/24/2024 Within the last year, have y ou been humiliated or emotionally abused in other ways by your partner or ex-partner? No Within the last year, have y ou been kicked, hit, slapped, or otherwise physically hurt by your partner or ex-partner? No 07/24/2024 Within the last year, have y ou been raped or forced to have any kind of sexual activity by your partner or ex-partner? No 07/24/2024 PHQ-2 Answer Date Recorded Patient Health Questionnaire-2 Score 0 08/14/2024 Hunger Vital Sign Answer Date Recorded Within the past 12 months, y ou worried that your food would run out before you got the money to buy more. Never true 07/24/19 25 Within the past 12 months, t he food you bought just didn't last and you didn't have money to get more. Never true 07/24/2024 PRAPARE - Transportation Answer Date Re corded In the past 12 months, has l ack of transportation kept you from medical appointments or from getting medications? No 07/13 In the past 12 months, has l ack of transportation kept you from meetings, work, or from getting things needed for daily living? No 07/24/2024 PHQ-9 Answer Date Recorded Patient Health Questionnaire-9 Score 0 08/14/2024 Housing Stability Vital Sign Answer Sigifredo e Recorded In the last 12 months, was t here a time when you were not able to pay the mortgage or rent on time? No 07/24/2024 In the past 12 months, how m any times have you moved where you were living? 0 07/24/2024 At any time in the past [address] [facility], were you homeless or living in a alf (including now)? No 07/24/2024 CAGE ASSESSMENT Answer Date Recorded Cage unable to access Not on file 07/22/2024 Cage max number of drinks Not on file 2024 Cage Beverages a week Not on file 07/22/2024 Have you ever felt you should CUT down on your d rinking? 0 07/22/2024 Have you been ANNOYED by people criticizing your drinking? 0 07/22/2024 Have you felt GUILTY about your drinking? 0 07/22/2024 Have you had a drink first t kimberlyn in the morning (EYE-HOSPICE ART THERAPIST) to steady your nerves or to get rid of a hangover? 0 07/22/2024 CAGE Questionnaire Score 0 025 Utilities Answer Date Recorded In the past 12 months has th e electric, gas, oil, or water company threatened to shut off services in your home? No 07/24/2024 Comments No Sex and Gender Information Value Date Recorded Sex Assigned at Female 07/22/2024 7:36 PM EST Legal Sex Female 8:37 PM EDT Gender Identity Female 07/22/2024 11:10 PM EST Sexual Orientation Straight 07/22/2024 11 :10 PM EST documented as of this encounter Plan of Treatment Upcoming Encounters Date Type Department Care Team (Late st Contact Info) Description 01/08/2025 9:30 AM EDT Appointment [facility] A Interventional Radiology [address] [place] [address] 01/15/2025 4:30 PM EDT Office Visit [facility] [address] [place] [address] Ochoa Matias MD [address] [place] [address] documented as of this encounter Procedures Procedure Name Priority Date/Time Associated Diagnosis Comments AP MISCELLANEOUS LAB TEST (SO) Routine 07/23/2024 1:18 PM EST Malignant neoplasm of bladder, unspecified (CMS/HCC) AP MISCELLANEOUS LAB TEST (SO) Routine 07/23/2024 1:18 PM EST Malignant neoplasm of bladder, unspecified (CMS/HCC) documented in this encounter Results * - AP Miscellaneous Test (07/23/2024 1:18 PM EST) Test name Selwyn Geller 09/05/2024 7:35 AM EDT [facility] Comment:[id number], A3 Test Result see scan 09/05/2024 7:35 AM EDT [facility] See Scanned Result 09/05/2024 7:35 AM EDT [facility] Tissue 07/23/2024 1:18 PM EST 08/19/2024 1:48 PM EDT us Ochoa Matias MD LAB REF LAB BLOOD AND FLUID ORD Final Result [facility] [address] [place] [address] * - AP Miscellaneous Test (07/23/2024 1:18 PM EST) Test name Viviane Keith 09/09/2024 8:04 AM EDT [facility] Comment:[id number], A3 Test Result see scan 09/09/2024 8:04 AM EDT [facility] See Scanned Result 09/09/2024 8:04 AM EDT [facility] Tissue 07/23/2024 1:18 PM EST 08/19/2024 1:48 PM EDT us Ochoa Matias MD LAB REF LAB BLOOD AND FLUID ORD Final Result [facility] [address] [place] [address] documented in this encounter Visit Diagnoses Diagnosis Malignant neoplasm of bladder, unspecified (CMS/HCC) documented in this encounter Additional Health Concerns Assessment Noted Time A Body Mass Index follow-up plan has been documented for the patient 07/25/2024 1:21 PM EST documented as of this encounter Care Teams Cable Television Line Technician Relationship Specialty Start Date End Date Luis Hatfield MD [facility] [place] [address] PCP - General 07/24/24 documented as of this encounter
--- OUTSIDE RECORDS SUMMARY | 2024-11-21 09:31 | XMS_ITS | Encounter Summary ---
Author Organization Healthcare Address [address] [place] [address] Care Team Providers Care Tool Lapper Hand Name Role Phone Luis Hatfield MD Primary Care Provider [phone] Encounter Details Date Type Department Care Team (Late st Contact Info) Description 10/18/2024 Telephone [facility] [address] [place] [address] Ochoa Matias MD [address] [facility] [address] [place] [address] Social History Tobacco Use Types Packs/Day Years [...] time in the past 12 m [facility], were you homeless or living in a retirement (including now)? No 09/23/2024 CAGE ASSESSMENT Answer [...] drink first t kimberlyn in the morning (EYE-RESOURCE RECOVERY SPECIALIST) to steady your nerves or to get [...] encounter Miscellaneous Notes * Telephone Encounter - Kelli Jackson - 10/18/2024 11:33 AM EDT Called Juan Antonio with no answer, LVM with verbal orders and to call back if needed * Telephone Encounter - Maury Lebron - 10/18/2024 11:25 AM EDT Patient Phone Message Reason for Call: Juan Antonio is calling from [employer] he is needing a verbal order for Occupational therapy once a week for 9 weeks for Ms. Pritchard. Leave vmail on his answer machine he will not be able to answer while he is with patients Best contact number and optimal time of day to reach caller: Juan Antonio [phone] Note: Please do not reply to this message. Follow-up communication and further actions as a result of this message need to be communicated with the patient directly, if the patient is not active onMyChart. If the patient is active on MyChart, they will receive notification of the communication/outcome via [employer]. documented in this encounter Plan of Treatment Upcoming Encounters Date Type Department Care Team (Late st Contact Info) Description 01/08/2025 9:30 AM EDT Appointment [facility] A Interventional Radiology [address] [place] [address] 01/15/2025 4:30 PM EDT Office Visit [facility] [address] [place] [address] Ochoa Matias MD [address] [facility] [address] [place] [address] documented as of this encounter Visit Diagnoses [...] documented as of this encounter Care Teams Tool Lapper Hand Relationship Specialty Start Date End Date Luis Hatfield MD [address] [place] [address] PCP - General 07/24/24 documented as of this encounter
--- OUTSIDE RECORDS SUMMARY | 2024-11-21 09:31 | XMS_ITS ---
Author Organization [facility] Address [address] [place] [address] Care Team Providers Care Marble Setter Helper Name Role Phone Luis Hatfield MD Primary Care Provider [phone] Active Problems Problem Noted Date Diagnosed Date Urinary tract infection 09/21/2024 Bladder cancer 07/25/2024 Current Treatment and Therapy Plans No current plan information found. Past Treatment and Therapy Plans No past plan information found. Lifetime Dose Tracking * Chemical Lifetime Dose Automatic Entry Manual Entr y Fluoro Time 4.12 minutes 4.12 minutes 0 minutes Air Kerma 77.24 mGy 77.24 mGy 0 mGy Air Kerma Area Product 585.63 Gym 585.63 Gym 0 Gym Resolved Problems Problem Noted Date Diagnosed Date Resolved Date VINCENZO (acute kidney injury) 09/11/2024 Acute blood loss anemia 07/22/202407/13 Bladder mass 07/22/2024 07/25/2024
--- OUTSIDE RECORDS SUMMARY | 2024-11-21 09:31 | XMS_ITS | Clinical Summary ---
Author Organization [facility] Address [address] [place] [address] Care Team Providers Care Physicist [place] Name Role Phone Luis Hatfield MD Primary Care Provider [phone] Allergies Active Allergy Reactions Criticality Noted Date Comments Codeine Nausea And Vomiting,Nausea,Vomiting Low 09/19/2017 codeine Medications irbesartan (Avapro) 300 MG tablet Take 1 tablet by mouth in the morning. Active multivitamin (Theragran) tablet Take 1 tablet by mouth in the morning. Active Turmeric (QC TUMERIC COMPLEX PO) Take 1 tablet by mouth in the morning. Active Probiotic Product (PROBIOTIC DAILY PO) Take 1 tablet by mouth in the morning. Active hydroxychloroqu ine (Plaquenil) 200 MG tablet Take 1 tablet by mouth in the morning and 1 tablet before bedtime. Active dexamethasone (Decadron) 4 MG tablet Take 2 tablets by mouth in the morning and 2 tablets in the evening. Take with meals. For 3 days , starting day after Chemo , for 6 cycles . . Active prochlorperazin e (Compazine) 10 MG tablet Take 1 tablet by mouth every 6 hours as needed for nausea or vomiting. Active sodium chloride 0.9 % flush Infuse 10 mL into a venous catheter as needed for line care for up to 50 doses. Infuse as needed for percutaneous nephrostomy tube 500 mL 5 Active Ferrous Sulfate (IRON PO) Take 1 tablet by mouth daily. Active Syringe, Disposable, (Syringe 2-3 ML) 3 ML misc 5 Active ondansetron (Zofran) 4 MG tablet 1 tablet Orally every 8 hours as needed Active traMADol (Ultram) 50 MG tablet Take 1 tablet by mouth every 6 hours as needed. Active buPROPion (Wellbutrin) 75 MG tablet Take 1 tablet by mouth 2 times a day. Active rosuvastatin (Crestor) 40 MG tablet Take 1 tablet by mouth 1 time each day. Active Active Problems Problem Noted Date Diagnosed Date Urinary tract infection 09/21/2024 Bladder cancer 07/25/2024 Resolved Problems Problem Noted Date Diagnosed Date Resolved Date VINCENZO (acute kidney injury) 09/11/2024 Acute blood loss anemia 07/22/202407/13 Bladder mass 07/22/2024 07/25/2024 Encounters Date Type Department Care Team Description 11/01/2024 Telephone [facility] [address] [place] [address] Ochoa Matias MD 10/24/2024 Telephone [facility] [address] [place] [address] Ochoa Matias MD [facility] 10/18/2024 Telephone [facility] [address] [place] [address] Ochoa Matias MD 10/09/2024 1:15 PM EDT Office Visit [facility] Multidisciplinary Oncology Clinic [address] [place] [address] Ochoa Matias MD Malignant neoplasm of urinary bladder, unspecified site (CMS/HCC) (Primary Dx) 10/09/2024 11:30 AM EDT Office Visit [facility] Vascular Interventional Radiology [address], [place] [address] [place] [address] Kristen Bryant APRN Malignant neoplasm of urinary bladder, unspecified site (CMS/HCC) (Primary Dx); Bilateral hydronephrosis 10/09/2024 Travel 09/25/2024 Telephone [facility] [address] [place] [address] Ochoa Matias MD [facility] 09/20/2024 8:53 PM EDT - 09/23/2024 3:28 PM EDT Hospital Encounter [facility] A Inpatient [facility] [address] [place] [address] Chavo Walden MD Micciche, MD Talisha Queen, MD Andrew Hung, Eleanor Mason MD Acute cystitis with hematuria (Primary Dx) Discharge Disposition: Home or Self Care 09/20/2024 Travel 09/20/2024 Orders Only External Location [address] [place] [address] Provider, External 09/20/2024 Orders Only External Location [address] [place] [address] Provider, External 09/20/2024 Orders Only External Location [address] [place] [address] Provider, External 09/20/2024 Orders Only External Location [address] [place] [address] Provider, External 09/20/2024 Orders Only External Location [address] [place] [address] Provider, External 09/20/2024 Orders Only External Location [address] [place] [address] Provider, External 09/20/2024 Orders Only External Location [address] [place] [address] Provider, External 09/20/2024 Orders Only External Location [address] [place] [address] Provider, External 09/20/2024 Orders Only External Location [address] [place] [address] Provider, External 09/20/2024 Orders Only External Location [address] [place] [address] Provider, External 09/16/2024 Telephone [facility] Interventional Radiology [address] [place] [address] Cecille Escobedo RN 09/16/2024 Telephone [facility] Interventional Radiology [address] [place] [address] Cecille Escobedo RN 09/12/2024 Travel 09/11/2024 12:04 PM EDT - 09/13/2024 2:58 PM EDT Hospital Encounter [facility] H Inpatient [address] [place] [address] Ochoa Mederos MD Hamm, Joel M, MD Dropkin, Benjamin M, MD Malignant neoplasm of urinary bladder, unspecified site ([facility]/HCC) (Primary Dx); VINCENZO (acute kidney injury) ([facility]) Discharge Disposition: Home or Self Care 09/11/2024 Travel from Last 3 Months Social History Tobacco Use Types Packs/Day Years [...] any time in the past 12 [facility], were you homeless or living in [...] drink first t kimberlyn in the 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) to steady your nerves or to get [...] Orientation Straight 07/22/2024 11 :10 PM EST Last Filed Vital Signs Vital Sign Reading Time Taken Comments Blood Pressure 106/68 10/09/2024 12:31 PM EDT Pulse 91 10/09/2024 12:31 PM EDT Temperature 36.6 C (97.9 F) 10/09/2024 12:31 PM EDT Respiratory Rate 16 09/23/2024 11:20 AM EDT Oxygen Saturation 94% 10/09/2024 12:31 PM EDT Inhaled Oxygen Concentration - - Weight 73.1 kg (161 lb 2.5 oz) 10/09/2024 12:31 PM EDT Height 155.7 cm (5' 1.3 ) 10/09/2024 12:31 PM ED T Body Mass Index 30.15 10/09/2024 12:31 PM EDT Plan of Treatment Upcoming Encounters Date Type Department Care Team (Late st Contact Info) Description 01/08/2025 9:30 AM EDT Appointment [facility] Interventional Radiology [address] [place] [address] 01/15/2025 4:30 PM EDT Office Visit [facility] [address] [place] [address] Ochoa Matias MD [address] [place] [id number] Health Maintenance Due Date Last Done Comments [facility]-Bone Density Scan 1955 [facility]-Medicare Annual Wellness (AWV) 1955 [facility]-/Child/Adol SDOH Screenings 1955 [id number] Vaccine (#1) 1959 [facility]-DTaP,Tdap,and Td Vaccines (1 - Tdap) 08/16/1996 08/15/1996 CT Colonography 1999 Colonoscopy 1999 FIT-DNA 1999 FIT 1999 FOBT 1999 Sigmoidoscopy 1999 [facility]-Colorectal Cancer Screening 1999 [facility]-Breast Cancer Screening 02/29/2004 [facility]-Zoster Vaccines (2 of 2) 04/16/2020 02/20/2020 [facility]-Influenza Vaccine (Season Ended) 2025 [facility]- SDOH Screenings 03/25/2025 [facility]-Adult SDOH Screenings 03/25/2025 09/23/2024 [facility]-Pneumococcal Vaccine: 50+ Years (2 of 2 - PCV) 04/10/2025 04/10/2024 [facility]-Depression Screening 10/09/2025 10/09/2024, 09/12 [facility]-RSV Vaccine: 60+ Years or (1 - 1-dose 75+ series) 2029 [facility]-Hepatitis C Screening Completed 07/22/2024 [facility]-Obesity Intervention Completed 025, 10/09/2024, 09/20/2024, Additional history exists HPV Vaccines Aged Out No longer eligi ble based on patient's age to complete this topic [facility]-HIB Vaccines Aged Out No longer e ligible based on patient's age to complete this topic [facility]-Hepatitis A Vaccines Aged Out No longer eligible based on patient's age to complete this topic [facility]-IPV Vaccines Aged Out No longer e ligible based on patient's age to complete this topic [facility]-Rotavirus Vaccines Aged Out No lo nger eligible based on patient's age to complete this topic Medical Devices Implanted Type Area Shaper And Presser Device Identifier Shelf Expiration Date Model / Serial / Lot Stent Ureteral Double Pigtail Pos 6fr 26cm - S. - [id number] Implanted:Qty: 1 on 07/23/2024 by Ochoa Matias MD at [facility] Stent N/A: [id number] 03/11/2026 [id number] / . / [id number] Procedures Procedure Name Priority Date/Time Associated Diagnosis Comments CYSTO- UROLOGY Routine 10/09/2024 1:43 PM EDT Malignant neoplasm of urinary bladder, unspecified site (CMS/HCC) EXTRA TUBE LAVENDER TOP Routine 09/21/2024 4:17 AM EDT EXTRA TUBES Routine 09/21/2024 4:17 AM EDT VITAMIN B12, SERUM Routine 09/21/2024 3: 59 AM EDT PHOSPHORUS, PLASMA Routine 09/21/2024 3: 59 AM EDT MAGNESIUM, PLASMA Routine 09/21/2024 3:5 9 AM EDT COMPREHENSIVE METABOLIC PANEL, PLASMA Routine 09/21/2024 3:59 AM EDT MULTI DRUG RESISTANCE TEST Routine 09/21/2024 2:33 AM EDT BETA GLUCAN SERUM (SO) Routine 12:47 AM EDT BLOOD CULTURE (AEROBIC/ANAEROBIC SET) STAT 09/20/2024 11:13 PM EDT BLOOD CULTURE (AEROBIC/ANAEROBIC SET) STAT 09/20/2024 11:13 PM EDT SEND CLARISSA MESSAGE STAT 09/20/2024 10 :40 PM EDT URINALYSIS MICROSCOPIC FOR UA REFLEX STAT 09/20/2024 10:40 PM EDT URINE STAFFORD PANEL STAT 09/20/2024 10:4 0 PM EDT URINALYSIS WITH REFLEX MICROSCOPIC STAT 09/20/2024 10:40 PM EDT URINALYSIS WITH REFLEX MICROSCOPIC AND CULTURE STAT 09/20/2024 10:40 PM EDT URINE CULTURE [...] PANEL, PLASMA STAT 09/20/2024 8:[address] THORACIC OUTSIDE IMAGES 09/20/2024 12:[address] ABDOMEN OUTSIDE IMAGES 09/20/2024 12:[address] THORACIC OUTSIDE IMAGES 09/20/2024 12:[address] ABDOMEN OUTSIDE IMAGES 09/20/2024 12:[address] NEURO OUTSIDE IMAGES 09/20/2024 12:[address] NEURO OUTSIDE IMAGES 09/20/2024 12:[address] NEURO OUTSIDE IMAGES 09/20/2024 12:[address] NEURO OUTSIDE IMAGES 09/20/2024 12:[address] NEURO OUTSIDE IMAGES 09/20/2024 12:[address] NEURO OUTSIDE IMAGES 09/20/2024 12:27 PM EDT PHOSPHORUS, PLASMA Routine 09/13/2024 3: 41 AM EDT MAGNESIUM, PLASMA Routine 09/13/2024 3:4 1 AM EDT BASIC METABOLIC PANEL, PLASMA Routine 09/13/2024 3:41 AM EDT CBC W/O DIFFERENTIAL Routine 09/13/2024 3:41 AM EDT URINE CULTURE Routine 09/12/2024 11:47 AM EDT MICROBIOLOGY FREQUENCY OVERRIDE Routine 09/12/2024 11:47 AM EDT IR NEPHROSTOMY TUBE PLACEMENT Routine 09/12/2024 11:33 AM EDT PHOSPHORUS, PLASMA Routine 09/12/2024 6: 47 AM EDT MAGNESIUM, PLASMA Routine 09/12/2024 6:4 7 AM EDT BASIC METABOLIC PANEL, PLASMA Routine 09/12/2024 6:47 AM EDT CBC W/O DIFFERENTIAL Routine 09/12/2024 6:47 AM EDT PROTHROMBIN TIME(PT) / INR Routine 09/12/2024 4:39 AM EDT URINALYSIS MICROSCOPIC FOR UA REFLEX STAT 09/11/2024 3:14 PM EDT URINE STAFFORD PANEL STAT 09/11/2024 3:14 PM EDT URINALYSIS WITH REFLEX MICROSCOPIC STAT 09/11/2024 3:14 PM EDT URINALYSIS WITH REFLEX MICROSCOPIC AND CULTURE STAT 09/11/2024 3:[address] ABDOMEN PELVIS WO IV CONTRAST STAT 09/11/2024 2:55 PM EDT CBC W/O DIFFERENTIAL STAT 09/11/2024 12:03 PM EDT COMPREHENSIVE METABOLIC PANEL, PLASMA STAT 09/11/2024 12:03 PM EDT HEPATITIS C ANTIBODY - ED W/REFLEX TO HCV QUANT PCR STAT 07/22/2024 7:54 PM EST from Last 3 Months or Most Recently Relevant to Health Maintenance Results * CYSTO- UROLOGY (10/09/2024 1:43 PM [...] type: flexible Cystoscopy route: transurethral Cystoscopy location: [place] bladder Irrigation used: saline Position: supine Urethra Urethra: normal Vagina Vagina: normal Bladder Bladder comment: Visualization obscured due to hematuria, possible mass at right trigone, stent protruding from right ureteral orifice grasped and removed in its entirety Post-Procedure Details Outcome: patient tolerated procedure well with no complications Disposition: discharged home in satisfactory condition us Ochoa Matias MD UROLOGY ORDERABLES Final Re sult * Lavender Top (09/21/2024 4:17 AM EDT) Extra Hold for add-ons 09/21/2024 7:01 AM EDT [facility] Comment:Auto resulted. Blood Venous blood specimen / Unknown 09/21/2024 4:17 AM EDT 09/21/2024 4:17 AM EDT us Abhilash Woodall MD LAB BLOOD ORDERABLES Final Resul t Performing Organization Address City/[facility]/[place] [address] * Phosphorus (09/21/2024 3:59 AM EDT) Only the most recent of3 resultswithin the time period is included. Phosphorus, Plasma 3.3 2.5 - 4.5 mg/dL 09/21/2024 4:56 AM EDT [facility] Blood Venous blood specimen / Unknown Venipuncture / Unknown 09/21/2024 3:59 AM EDT 09/21/2024 4:24 AM EDT us Abhilash Woodall MD LAB BLOOD ORDERABLES Final Resul t Performing Organization Address [facility] [place] [address] * (ABNORMAL) Magnesium, Plasma (09/21/2024 3:59 AM EDT) Only the most recent of4 resultswithin the time period is included. Magnesium, Plasma 2.6(H) 1.9 - 2.4 mg/dL 09/21/2024 4:56 AM EDT [facility] Blood Venous blood specimen / Unknown Venipuncture / Unknown 09/21/2024 3:59 AM EDT 09/21/2024 4:24 AM EDT us Abhilash Woodall MD LAB BLOOD ORDERABLES Final Resul t Performing Organization Address City/[facility] Co de Phone Number [facility] [address] [place] [address] * (ABNORMAL) Vitamin B12 (09/21/2024 3:59 AM EDT) Vitamin B12, Serum 1,924(H) 210 - 1,033 pg/mL 09/21/2024 5:11 AM EDT [facility] Blood Venous blood specimen / Unknown Venipuncture / Unknown 09/21/2024 3:59 AM EDT 09/21/2024 4:24 AM EDT us Abhilash Woodall MD LAB BLOOD ORDERABLES Final Resul t [facility] [address] [place] [address] * (ABNORMAL) Comprehensive metabolic panel (09/21/2024 3:59 AM EDT) Only the most recent of3 resultswithin the time period is included. Glucose, Plasma 123(H) 74 - 99 mg/dL 09/21/2024 4:56 AM EDT [facility] BUN, Plasma 25(H) 8 - 23 mg/dL 09/21/2024 4:56 AM EDT [facility] Creatinine, Plasma 1.25(H) 0.60 - 1.10 mg/dL 09/21/2024 4:56 AM EDT [facility] BUN/Creatinine Ratio 20 09/21/2024 4:56 AM EDT [facility] Sodium, Plasma 137 136 - 145 mmol/L 09/21/2024 4:56 AM EDT [facility] Potassium, Plasma 4.6 3.6 - 4.9 mmol/L 09/21/2024 4:56 AM EDT [facility] Chloride, Plasma 99 97 - 107 mmol/L 09/21/2024 4:56 AM EDT [facility] CO2, Plasma 25 22 - 29 mmol/L 09/21/2024 4:56 AM EDT [facility] Anion Gap 13 6 - 16 mmol/L 09/21/2024 4:56 AM EDT [facility] Total Calcium, Plasma 10.0 8.9 - 10.2 mg/dL 09/21/2024 4:56 AM EDT [facility] Total Protein 7.2 6.3 - 7.9 g/dL 09/21/2024 4:56 AM EDT [facility] Albumin, Plasma 3.7 3.5 - 5.2 g/dL 09/21/2024 4:56 AM EDT [facility] AST, Plasma 16 10 - 35 U/L 09/21/2024 4:56 AM EDT [facility] ALT, Plasma 8(L) 10 - 35 U/L 09/21/2024 4:56 AM EDT [facility] Alkaline Phosphatase, Plasma 88 46 - 142 U/L 09/21/2024 4:56 AM EDT [facility] Total Bilirubin, Plasma 0.3 0.2 - 1.1 mg/dL 09/21/2024 4:56 AM EDT [facility] eGFRcr 46.5 mL/min/1.7 3m*2 09/21/2024 4:56 AM EDT [facility] Comment:Reported eGFRcr in m L/min/1.73m2 is based the CKD-EPI 2020 equation that does not use a race coefficient. Blood Venous blood specimen / Unknown Venipuncture / Unknown 09/21/2024 3:59 AM EDT 09/21/2024 4:24 AM EDT Abhilash Woodall MD LAB BLOOD ORDERABLES Final Resul t Performing Organization Address City/[facility]/ZIP Co de Phone Number [facility] [address] [place] [address] * Multi Drug Resistance Test (09/21/2024 2:33 AM EDT) Pathologist [facility] Culture No growth at day 1 09/21/2024 11:59 PM EDT [facility] Swab (Nares and [place] Rectal) Non-blood Collection / Unknown 09/21/2024 2:33 AM EDT 09/21/2024 3:40 AM EDT Abhilash Woodall MD LAB MICROBIOLOGY - GENERAL ORDER GURWINDER Final Result [facility] [address] [place] [address] * Beta Glucan (Fungitel), Serum (09/21/2024 12:47 AM EDT) Beta Glucan (Fungitell) <31 <80 pg/mL 09/24/2024 4:05 PM EDT [facility] (BEAKER) Comment: Interpretation: The Fungitell assay does not detect certain fungal species such as the genus Cryptococcus (Taina et al. 1991) which produces very low levels of (1-3)-Mhby-B-Yrjrzi. The assay also does not detect the Zygomycetes such as Absidia, Mucor and Rhizopus (Lore et al. 1994) which are not known to produce (1-3)-Awhh-P-Zosgyw. In addition, the yeast phase of Blastomyces dermatitidis produces little (1-3)-Gsyo-J-Yxayht and may not be detected by the [...] characteristics for these modifications were determined by [email or web address]. If sample result is greater than 500 pg/mL, physician may order a titer of the sample. Please contact [email or web address] if you would like to order a retest of this sample to obtain an actual value. Samples are held for 1 week after initial testing date. Testing Performed at: [facility] ? [address] [place] [address], [address] [place] [address] [employer] Manager: Jorge Villegas, PhD [facility] (SELAM) CLIA # [id number] FLAG Interpretation: A = Abnormal, H = High, L = Low Blood Venous blood specimen / Unknown Venipuncture / Unknown 09/21/2024 12:47 AM EDT 09/21/2024 12:57 AM EDT [facility] - 09/24/2024 4:05 PM EDT [facility]mediate us Abhilash Woodall MD LAB BLOOD ORDERABLES Final Resul t [facility]) * Blood Culture (Aerobic/Anaerobet Set) (09/20/2024 11:13 PM EDT) Only the most recent of2 resultswithin the time period is included. Culture No growth at day 5 09/26/2024 12:02 AM EDT [facility] Blood Venous blood specimen / Unknown Venipuncture / Unknown 09/20/2024 11:13 PM EDT 09/20/2024 11:35 PM EDT us Chavo Walden MD LAB MICROBIOLOGY - GENERAL OR DERABLES Final Result Performing Organization Address City/[facility]/ZIP Co de Phone Number [facility] [address] [place] [address] * SEND CLARISSA MESSAGE (09/20/2024 10:40 PM EDT) Urine Urine specimen from nephrostomy tube / Unknown Non-blood Collection / Unknown 09/20/2024 10:40 PM EDT 09/20/2024 10:57 PM EDT us Chavo Walden MD LAB URINE ORDERABLES Final Re sult Performing Organization Address City/[facility]/ZIP Co de Phone Number [facility] [address] [place] [address] * Urine Stafford Panel (09/20/2024 10:40 PM EDT) Only the most recent of2 resultswithin the time period is included. Extra Sent for Culture 09/21/2024 12:02 AM EDT [facility] Urine Urine specimen from nephrostomy tube / Unknown Non-blood Collection / Unknown 09/20/2024 10:40 PM EDT 09/20/2024 10:57 PM EDT us Chavo Walden MD LAB URINE ORDERABLES Final Re sult Performing Organization Address [facility]/ZIP Co de Phone Number [facility] [address] [place] [address] * Urinalysis Microscopic Examination (09/20/2024 10:40 PM EDT) Only the most recent of3 resultswithin the time period is included. Urine Urine specimen from nephrostomy tube / Unknown Non-blood Collection / Unknown 09/20/2024 10:40 PM EDT 09/20/2024 10:43 PM EDT us Chavo Walden MD LAB URINE ORDERABLES Final Re sult Performing Organization Address [facility] Co de Phone Number [facility] [address] [place] [address] * (ABNORMAL) Urinalysis with reflex microscopic (Culture NOT Included) (09/20/2024 10:40 PM EDT) Only the most recent of3 resultswithin the time period is included. Color, Urine Yellow LAB URINALYSIS - AUTOMATED METHOD 09/20/2024 11:31 PM EDT [facility] Clarity, Urine Cloudy LAB URINALYSIS - AUTOMATED METHOD 09/20/2024 11:31 PM EDT [facility] Spec [place], Urine 1.021 1.005 - 1.030 LAB URINALYSIS - AUTOMATED METHOD 09/20/2024 11:31 PM EDT [facility] pH, Urine 6.5 5.0 - 8.0 LAB URINALYSIS - AUTOMATED METHOD 09/20/2024 11:31 PM EDT [facility] Protein, Urine >=300(A) Negative mg/dL LAB URINALYSIS - AUTOMATED METHOD 09/20/2024 11:31 PM EDT [facility] Glucose, Urine Negative Negative mg/dL LAB URINALYSIS - AUTOMATED METHOD 09/20/2024 11:31 PM EDT [facility] Ketones, Urine Negative Negative mg/dL LAB URINALYSIS - AUTOMATED METHOD 09/20/2024 11:31 PM EDT [facility] Blood, Urine Large(A) Negative LAB URINALYSIS - AUTOMATED METHOD 09/20/2024 11:31 PM EDT [facility] Bilirubin, Urine Negative Negative LAB URINALYSIS - AUTOMATED METHOD 09/20/2024 11:31 PM EDT [facility] Urobilinogen, Urine 0.2 0.2 to 1.0 mg/dL LAB URINALYSIS - AUTOMATED METHOD 09/20/2024 11:31 PM EDT [facility] Leukocytes, Urine Moderate(A) Negative LAB URINALYSIS - AUTOMATED METHOD 09/20/2024 11:31 PM EDT [facility] Nitrite, Urine Negative Negative LAB URINALYSIS - AUTOMATED METHOD 09/20/2024 11:31 PM EDT [facility] RBC, Urine >50(A) 0 to 3 /HPF LAB URINALYSIS - AUTOMATED METHOD 09/20/2024 11:31 PM EDT [facility] Comment:This result was prev iously suppressed from the chart. WBC, Urine >50(A) 0 to 5 /HPF LAB URINALYSIS - AUTOMATED METHOD 09/20/2024 11:31 PM EDT [facility] Comment:This result was prev iously suppressed from the chart. Squamous Epithelial Cells 0 - 2 0 to 5 /HPF LAB URINALYSIS - AUTOMATED METHOD 09/20/2024 11:31 PM EDT [facility] Comment:This result was prev iously suppressed from the chart. Hyaline Casts 11 - 20(A) 0 to 5 /LPF LAB URINALYSIS - AUTOMATED METHOD 09/20/2024 11:31 PM EDT [facility] Comment:This result was prev iously suppressed from the chart. Bacteria, Urine Present Negative LAB URINALYSIS - AUTOMATED METHOD 09/20/2024 11:31 PM EDT [facility] Comment:This result was prev iously suppressed from the chart. Yeast (Budding and/or Pseudohyphae) Present(A) Absent LAB URINALYSIS - AUTOMATED METHOD 09/20/2024 11:31 PM EDT [facility] Comment:This result was prev iously suppressed from the chart. Urine Urine specimen from nephrostomy tube / Unknown Non-blood Collection / Unknown 09/20/2024 10:40 PM EDT 09/20/2024 10:43 PM EDT us Chavo Walden MD LAB URINE ORDERABLES Final Re sult Performing Organization Address [facility] Co de Phone Number [facility] [address] [place] [address] * (ABNORMAL) Urine Culture (09/20/2024 10:40 PM EDT) Only the most recent of2 resultswithin the time period is included. Culture 1,000 - 10,000 CFU/mL Staphylococcus coagulase negative(A) 09/25/2024 11:49 AM EDT [facility] Comment:Edited result: Previ ously reported as Gram positive cocci on 09/21/2024 at 2221 EDT. Culture 1,000 - 10,000 CFU/mL Clavispora lusitaniae (formerly Elsa lusitaniae)(A) 09/25/2024 11:49 AM EDT [facility] Comment: This isolate has been identified using the FDA Approved Silv[employer]yper CA System Contact Microbiology (66348) within 24 hours if susceptibility required. The organism value for this result has been updated. These results have been appended to the previously preliminary verified report. Edited result: Previously reported as Yeast on 09/25/2024 at 0542 EDT. Urine Urine specimen from nephrostomy tube / Unknown Non-blood Collection / Unknown 09/20/2024 10:40 PM EDT 09/20/2024 10:57 PM EDT Chavo Walden MD LAB MICROBIOLOGY - GENERAL OR DERABLES Final Result Performing Organization Address [facility] Co de Phone Number [facility] [address] [place] [address] * (ABNORMAL) CBC w/diff (09/20/2024 8:52 PM EDT) WBC Count 14.96(H) 3.70 - 10.30 10*3/uL LAB HEMATOLOGY METHOD 09/20/2024 8:55 PM EDT [facility] RBC Count 3.50(L) 3.90 - 5.20 10*6/uL LAB HEMATOLOGY METHOD 09/20/2024 8:55 PM EDT [facility] [facility] HGB 10.1(L) 11.2 - 15.7 g/dL LAB HEMATOLOGY METHOD 09/20/2024 8:55 PM EDT [facility] HCT 30.2(L) 34.0 - 45.0 % LAB HEMATOLOGY METHOD 09/20/2024 8:55 PM EDT [facility] Platelet Count 513(H) 155 - 369 10*3/uL LAB HEMATOLOGY METHOD 09/20/2024 8:55 PM EDT [facility] MCV 86 79 - 98 fL LAB HEMATOLOGY METHOD 09/20/2024 8:55 PM EDT [facility] MCH 28.9 26.0 - 32.0 pg LAB HEMATOLOGY METHOD 09/20/2024 8:55 PM EDT [facility] MCHC 33.4 30.7 - 35.5 g/dL LAB HEMATOLOGY METHOD 09/20/2024 8:55 PM EDT [facility] RDW 14.3 11.5 - 14.5 % LAB HEMATOLOGY METHOD 09/20/2024 8:55 PM EDT [facility] MPV 8.1(L) 8.8 - 12.5 fL LAB HEMATOLOGY METHOD 09/20/2024 8:55 PM EDT [facility] nRBC 0.0 <=0.0 per 100 WBCs LAB HEMATOLOGY METHOD 09/20/2024 8:55 PM EDT [facility] Differential Type Automated LAB HEMATOLOGY METHOD 09/20/2024 8:55 PM EDT [facility] Neutrophils % 76 % LAB HEMATOLOGY METHOD 09/20/2024 8:55 PM EDT [facility] Lymphocytes % 15 % LAB HEMATOLOGY METHOD 09/20/2024 8:55 PM EDT [facility] Monocytes % 7 % LAB HEMATOLOGY METHOD 09/20/2024 8:55 PM EDT [facility] Eosinophils % 1 % LAB HEMATOLOGY METHOD 09/20/2024 8:55 PM EDT [facility] Basophils % 0 % LAB HEMATOLOGY METHOD 09/20/2024 8:55 PM EDT [facility] Immature Granulocytes % 1 % LAB HEMATOLOGY METHOD 09/20/2024 8:55 PM EDT [facility] Neutrophils Absolute 11.29(H) 1.60 - 6.10 10*3/uL LAB HEMATOLOGY METHOD 09/20/2024 8:55 PM EDT [facility] Lymphocytes Absolute 2.27 1.20 - 3.90 10*3/uL LAB HEMATOLOGY METHOD 09/20/2024 8:55 PM EDT [facility] Monocytes Absolute 1.05(H) 0.30 - 0.90 10*3/uL LAB HEMATOLOGY METHOD 09/20/2024 8:55 PM EDT [facility] Eosinophils Absolute 0.18 0.00 - 0.50 10*3/uL LAB HEMATOLOGY METHOD 09/20/2024 8:55 PM EDT [facility] Basophils Absolute 0.06 0.00 - 0.10 10*3/uL LAB HEMATOLOGY METHOD 09/20/2024 8:55 PM EDT [facility] Immature Granulocytes Absolute 0.11(H) 0.00 - 0.06 10*3/uL LAB HEMATOLOGY METHOD 09/20/2024 8:55 PM EDT [facility] Blood Venous blood specimen / Unknown Venipuncture / Unknown 09/20/2024 8:52 PM EDT 09/20/2024 8:53 PM EDT Narrative [facility] - 09/20/2024 8:55 PM EDT Therapeutic decision making should be based on absolute values, rather than percentages. Sheree Augustine MD LAB BLOOD ORDERABLES Final Resu lt [facility] [address] [place] [address] * Lipase (09/20/2024 8:52 PM EDT) Lipase, Plasma 42 19 - 63 U/L 09/20/2024 9:13 PM EDT [facility] Blood Venous blood specimen / Unknown Venipuncture / Unknown 09/20/2024 8:52 PM EDT 09/20/2024 8:53 PM EDT Sheree Augustine MD LAB BLOOD ORDERABLES Final Resu lt [facility] [address] [place] [address] * CT THORACIC OUTSIDE IMAGES (09/20/2024 12:35 PM EDT) Only the most recent of2 resultswithin the time period is included. Anatomical Region Laterality Modality Computed Tomogra phy 09/20/2024 12:3 5 PM EDT us External Provider IMG CT PROCEDURES Final Result * CT ABDOMEN OUTSIDE IMAGES (09/20/2024 12:35 PM EDT) Only the most recent of2 resultswithin the time period is included. Anatomical Region Laterality Modality Computed Tomogra phy 09/20/2024 12:3 5 PM EDT us External Provider IMG CT PROCEDURES Final Result * CT NEURO OUTSIDE IMAGES (09/20/2024 12:27 PM EDT) Only the most recent of6 resultswithin the time period is included. Anatomical Region Laterality Modality Computed Tomogra phy 09/20/2024 12:2 7 PM EDT us External Provider IMG CT PROCEDURES Final Result * (ABNORMAL) CBC W/O Differential (09/13/2024 3:41 AM EDT) Only the most recent of3 resultswithin the time period is included. WBC Count 9.39 3.70 - 10.30 10*3/uL LAB HEMATOLOGY METHOD 09/13/2024 4:15 AM EDT [facility] RBC Count 3.02(L) 3.90 - 5.20 10*6/uL LAB HEMATOLOGY METHOD 09/13/2024 4:15 AM EDT [facility] HGB 8.8(L) 11.2 - 15.7 g/dL LAB HEMATOLOGY METHOD 09/13/2024 4:15 AM EDT [facility] HCT 26.7(L) 34.0 - 45.0 % LAB HEMATOLOGY METHOD 09/13/2024 4:15 AM EDT [facility] Platelet Count 428(H) 155 - 369 10*3/uL LAB HEMATOLOGY METHOD 09/13/2024 4:15 AM EDT [facility] MCV 88 79 - 98 fL LAB HEMATOLOGY METHOD 09/13/2024 4:15 AM EDT [facility] MCH 29.1 26.0 - 32.0 pg LAB HEMATOLOGY METHOD 09/13/2024 4:15 AM EDT [facility] MCHC 33.0 30.7 - 35.5 g/dL LAB HEMATOLOGY METHOD 09/13/2024 4:15 AM EDT [facility] RDW 14.1 11.5 - 14.5 % LAB HEMATOLOGY METHOD 09/13/2024 4:15 AM EDT [facility] MPV 8.2(L) 8.8 - 12.5 fL LAB HEMATOLOGY METHOD 09/13/2024 4:15 AM EDT [facility] nRBC 0.0 <=0.0 per 100 WBCs LAB HEMATOLOGY METHOD 09/13/2024 4:15 AM EDT [facility] Blood Venous blood specimen / Unknown Venipuncture / Unknown 09/13/2024 3:41 AM EDT 09/13/2024 3:52 AM EDT Pankaj Robles MD LAB BLOOD ORDERABLES Final Result [facility] [address] [place] [address] * (ABNORMAL) Basic metabolic panel (09/13/2024 3:41 AM EDT) Only the most recent of2 resultswithin the time period is included. Glucose, Plasma 99 74 - 99 mg/dL 09/13/2024 4:24 AM EDT [facility] BUN, Plasma 30(H) 8 - 23 mg/dL 09/13/2024 4:24 AM EDT [facility] Creatinine, Plasma 2.15(H) 0.60 - 1.10 mg/dL 09/13/2024 4:24 AM EDT [facility] BUN/Creatinine Ratio 14 09/13/2024 4:24 AM EDT [facility] Sodium, Plasma 136 136 - 145 mmol/L 09/13/2024 4:24 AM EDT [facility] Potassium, Plasma 4.7 3.6 - 4.9 mmol/L 09/13/2024 4:24 AM EDT [facility] Chloride, Plasma 107 97 - 107 mmol/L 09/13/2024 4:24 AM EDT [facility] CO2, Plasma 15(L) 22 - 29 mmol/L 09/13/2024 4:24 AM EDT [facility] Anion Gap 14 6 - 16 mmol/L 09/13/2024 4:24 AM EDT [facility] Total Calcium, Plasma 8.9 8.9 - 10.2 mg/dL 09/13/2024 4:24 AM EDT [facility] eGFRcr 24.2 mL/min/1.7 3m*2 09/13/2024 4:24 AM EDT [facility] Comment:Reported eGFRcr in m L/min/1.73m2 is based the CKD-EPI 2020 equation that does not use a race coefficient. Blood Venous blood specimen / Unknown Venipuncture / Unknown 09/13/2024 3:41 AM EDT 09/13/2024 3:51 AM EDT us Pankaj Robles MD LAB BLOOD ORDERABLES Final Result [facility] [address] [place] [address] * Microbiology Frequency Override (09/12/2024 11:47 AM EDT) Microbiology Frequency Override Test Comment urine culture 09/13/2024 7:32 AM EDT [facility] Urine Urine specimen from nephrostomy tube / Unknown Non-blood Collection / Unknown 09/12/2024 11:47 AM EDT 09/12/2024 12:12 PM EDT us Tobias Mckeon MD LAB MICROBIOLOGY - GENERAL O RDERABLES Final Result [facility] [address] [place] [address] * IR Nephrostomy Tube Placement (09/12/2024 11:33 AM EDT) Anatomical Region Laterality Modality Body, Kidney X-Ray Angiograph y Impressions 09/12/2024 1:21 PM EDT Successful placement of 8 Salvadorean locking pigtails bilateral nephrostomy tubes. PLAN: Routine sedation recovery. Flush nephrostomy tubes with 10 cc of normal saline twice a day while inpatient, once daily as outpatient. Nephrostomy tubes should be exchanged every 10-12 weeks. CRITICAL RESULT: No. COMMUNICATION: Per this written report. Drafted by Tobias Mckeon MD on 09/12/2024 1:18 PM Final report signed by Tobias Mckeon MD on 09/12/2024 1:21 PM Narrative 09/12/2024 1:21 PM EDT CLINICAL INDICATION: Yaima Pritchard is a is a 69 y.o. female with a past medical history of bladder cancer s/p TURBT and R stent placement 07/23/24 who presented for with worsening renal function, in the setting of active chemotherapy regimen. CT abdomen pelvis 09/11/24 showing bilateral hydronephrosis. IR consulted for bl nephrostomy tube placement. TECHNIQUE: Call Circuit Worker: Tobias Mckeon MD Secondary Continuous Pickling Line Pickler Helper: Amilcar Hawley MD Rad Dose: 73 mGy [...] was advanced into a lower pole calyx. Ultrasound images were sent to permanent storage in PACS. [...] The AccuStick sheath was removed. An 8 Salvadorean percutaneous nephrostomy tube was advanced over the [...] a lower pole calyx of the right kidney. A 0.018 inch Nitinol wire was advanced into the renal pelvis and subsequently into the left ureter. An AccuStick sheath was advanced. The metal stiffener as well as inner dilator of the AccuStick sheath were removed a long with the Nitinol wire and a 0.035 inch Amplatz wire was advanced into the left ureter. The AccuStick sheath was removed. An 8 Salvadorean percutaneous nephrostomy tube was advanced over the [...] ureter into the urinary bladder. COMPLICATION: No. Procedure Note Tobias Mckeon MD - 09/12/2024 CLINICAL INDICATION: Yaima Pritchard is a is a 69 y.o. female with a past medical historyof bladder cancer s/p TURBT and R stent placement 07/23/24 who presentedfor with worsening renal function, in the setting of active chemotherapyregimen. CT abdomen pelvis 09/11/24 showing bilateral hydronephrosis. IRconsulted for bl nephrostomy tube placement. TECHNIQUE: Call Circuit Worker: Tobias Mckeon MD Secondary Continuous Pickling Line Pickler Helper: Amilcar Hawley MD Rad Dose: 73 mGy Medications: IV conscious sedation with continuous physiologic monitoringprovided by a qualified healthcare professional using Versed 2 mg IV andFentanyl 100 mcg IV. 1% Lidocaine SQ. Antibiotics: Rocephin 1 g given intravenously perioperatively. Duration of Conscious Sedation: Time out: 1046 close out: 11:30 Procedure: The patient was identified. After the risks and benefits of the procedurewere discussed with the patient, an informed written consent was obtained.The patient was then brought back to interventional suite and placed proneon the table. A time out was performed. The patient was then prepped anddraped in the normal sterile fashion. Left Kidney: Under ultrasound guidance, a 22-gauge Chiba needle was advanced into alower pole calyx. Ultrasound images were sent to permanent storage inKYCS. Contrast instilled and fluoroscopic imaging confirmed placementwithin a lower pole calyx of the left kidney. A 0.018 inch Nitinol wirewas advanced into the renal pelvis and subsequently into the left ureter.An AccuStick sheath was advanced. The metal stiffener as well as innerdilator of the AccuStick sheath were removed a long with the Nitinol wireand a 0.035 inch Amplatz wire was advanced into the left ureter. TheAccuStick sheath was removed. An 8 Salvadorean percutaneous nephrostomy tubewas advanced over the wire and the wire removed. Contrast instillationdemonstrates the tip of the nephrostomy tube to be within the ureter atthis point. The nephrostomy tube was retracted such that the pigtail to beformed and locked within the renal pelvis. Repeat contrast instillationdemonstrates good positioning of the pigtail. The pigtail catheter was secured to the skin with 2-0 silk suture. The pigtail drainagecatheter was left to gravity drainage. Right Kidney: Under ultrasound guidance, a 22-gauge Chiba needle was advanced into alower pole calyx. Contrast instilled and fluoroscopic imaging confirmedplacement within a lower pole calyx of the right kidney. A 0.018 inchNitinol wire was advanced into the renal pelvis and subsequently into theleft ureter. An AccuStick sheath was advanced. The metal stiffener as wellas inner dilator of the AccuStick sheath were removed a long with theNitinol wire and a 0.035 inch Amplatz wire was advanced into the leftureter. The AccuStick sheath was removed. An 8 Salvadorean percutaneousnephrostomy tube was advanced over the wire and the wire removed. Contrastinstillation demonstrates the tip of the nephrostomy tube to be within theureter at this point. The nephrostomy tube was retracted such that thepigtail to be formed and locked within the renal pelvis. Repeat contrastinstillation demonstrates good positioning of the pigtail. The pigtailcatheter was secured to the skin with 2-0 silk suture. The pigtail drainage catheter was left to gravity drainage. There were no immediate complications. The patient tolerated the procedurewell. COMPARISON: CT abdomen and pelvis without contrast FINDINGS: Bilateral hydronephrosis. Right double-J stent with occlusion along the mid ureter. Free spillage of contrast from the left ureter into the urinary bladder. COMPLICATION: No. IMPRESSION: Successful placement of 8 Salvadorean locking pigtails bilateral nephrostomytubes. PLAN: Routine sedation recovery. Flush nephrostomy tubes with 10 cc of normal saline twice a day whileinpatient, once daily as outpatient. Nephrostomy tubes should be exchanged every 10-12 weeks. CRITICAL RESULT: No. COMMUNICATION: Per this written report. Drafted by Tobias Mckeon MD on 09/12/2024 1:18 PM Final report signed by Tobias Mckeon MD on 09/12/2024 1:21 PM us Pankaj Robles MD IMG IR PROCEDURES Final Re sult * (ABNORMAL) Protime-INR (09/12/2024 4:39 AM EDT) Prothrombin Time 16.2(H) 12.0 - 14.3 sec LAB COAGULATION METHOD 09/12/2024 6:08 AM EDT [facility] INR 1.3(H) 0.9 - 1.1 LAB COAGULATION METHOD 09/12/2024 6:08 AM EDT [facility] Blood Venous blood specimen / Unknown Venipuncture / Unknown 09/12/2024 4:39 AM EDT 09/12/2024 4:47 AM EDT Narrative [facility] - 09/12/2024 6:08 AM EDT OPTIMAL INR RANGES FOR PATIENT ON ORAL ANTICOAGULANT THERAPY Prevention of venous thromboembolism INR 2.0 to 3.0 In patients with heart disease: Atrial fibrillation INR 2.0 to 3.0 Valvular heart disease INR 2.0 to 3.0 Tissue heart valves INR 2.0 to 3.0 Mechanical prosthetic valves INR 2.5 to 3.5 Prevention of recurrent KS INR 2.5 to 3.5 us Pankaj Robles MD LAB BLOOD ORDERABLES Final Result [facility] [address] [place] [address] * CT Abdomen Pelvis wo IV Contrast (09/11/2024 2:55 PM EDT) Anatomical Region Laterality Modality Abdomen, Pelvis Computed Tomogra phy Impressions 09/11/2024 5:15 PM EDT Known urothelial carcinoma of the urinary bladder. There is a exophytic transmural masslike bladder wall thickening at the bladder base measuring up to 1.1 cm with possible involvement of bilateral UVJs. Interval right JJ stent with the residual moderate hydronephrosis and hydroureter concerning for stent dysfunction. Interval left mild hydronephrosis and hydroureter. Interval bilateral pulmonary nodules concerning for pulmonary metastasis. Circumferential thickening of the lower esophagus could be secondary to esophagitis or signal vomiting. CRITICAL RESULT: No. COMMUNICATION: Per this written report. Drafted by Latosha Hair MD on 09/11/2024 4:45 PM Final report signed by Latosha Hair MD on 09/11/2024 5:15 PM Narrative 09/11/2024 5:15 PM EDT CLINICAL INDICATION: Kidney failure, acute TECHNIQUE: Imaging of the abdomen and pelvis was performed from lung bases through pubic symphysis, using spiral technique, without administration of IV contrast. Reformatted images in the coronal and sagittal planes were generated from the axial data set to facilitate diagnostic accuracy. Total DLP (Dose-Length Product): 395.18 mGy.cm. Please note: The reported value represents the total of one or more individual components during the CT acquisition on this date and at this time, and as such, the same value may appear in more than one CT report depending on the interpreting/reporting physicians. COMPARISON: August 19, 2017 FINDINGS: Lack of IV contrast limits evaluation of abdominal and pelvic organs. Lung Bases: Multiple bilateral pulmonary nodules dominant in the right lower lobe measuring up to 9 mm. Bilateral trace pleural effusions. Liver/Gallbladder/Biliary System: Redemonstrated scattered punctate calcifications throughout liver. No obvious hepatic lesions within the limitation of noncontrast study. Gallbladder surgically absent. No intra- or extra-hepatic biliary ductal dilatation. Spleen: Punctate calcified granulomata. Pancreas: No suspicious pancreatic lesions. Adrenals: The adrenals are morphologically unremarkable. Kidneys: Interval bilateral right and mild left hydronephroureterosis. There is an indwelling right JJ stent. No stones. Bowel/Mesentery: Small hiatal hernia. Mild thickening of the lower esophagus could be sequela of vomiting or esophagitis. The small bowel loops are not dilated. The large bowel loops are not dilated. The appendix is visualized and normal. Vessels/Lymph Nodes: Atherosclerosis without aneurysm. No lymphadenopathy within the abdomen or pelvis. Fluid Survey: No free fluid in the abdomen. No free fluid in the pelvis. Pelvis: Normal uterus. There is a exophytic transmural masslike bladder wall thickening at the bladder base measuring up to 1.1 cm with possible involvement of bilateral UVJs. Transmural exophytic component is well seen in the right lateral bladder base (series 3 image 240). Dense material in the bladder base likely posttreatment changes. Body Wall: Normal. Bones: No acute fracture. T12 vertebroplasty changes. Procedure Note Latosha Hair MD - 09/11/2024 CLINICAL INDICATION: Kidney failure, acute TECHNIQUE: Imaging of the abdomen and pelvis was performed from lung bases throughpubic symphysis, using spiral technique, without administration of IVcontrast. Reformatted images in the coronal and sagittal planes weregenerated from the axial data set to facilitate diagnostic accuracy. Total DLP (Dose-Length Product): 395.18 mGy.cm. Please note: The reportedvalue represents the total of one or more individual components during theCT acquisition on this date and at this time, and as such, the same valuemay appear in more than one CT report depending on theinterpreting/reporting physicians. COMPARISON: August 19, 2017 FINDINGS: Lack of IV contrast limits evaluation of abdominal and pelvic organs. Lung Bases: Multiple bilateral pulmonary nodules dominant in the rightlower lobe measuring up to 9 mm. Bilateral trace pleural effusions. Liver/Gallbladder/Biliary System: Redemonstrated scattered punctatecalcifications throughout liver. No obvious hepatic lesions within thelimitation of noncontrast study. Gallbladder surgically absent. No intra-or extra-hepatic biliary ductal dilatation. Spleen: Punctate calcified granulomata. Pancreas: No suspicious pancreatic lesions. Adrenals: The adrenals are morphologically unremarkable. Kidneys: Interval bilateral right and mild left hydronephroureterosis.There is an indwelling right JJ stent. No stones. Bowel/Mesentery: Small hiatal hernia. Mild thickening of the loweresophagus could be sequela of vomiting or esophagitis. The small bowelloops are not dilated. The large bowel loops are not dilated. Theappendix is visualized and normal. Vessels/Lymph Nodes: Atherosclerosis without aneurysm. No lymphadenopathywithin the abdomen or pelvis. Fluid Survey: No free fluid in the abdomen. No free fluid in the pelvis. Pelvis: Normal uterus. There is a exophytic transmural masslike bladderwall thickening at the bladder base measuring up to 1.1 cm with possibleinvolvement of bilateral UVJs. Transmural exophytic component is well seenin the right lateral bladder base (series 3 image 240). Dense material inthe bladder base likely posttreatment changes. Body Wall: Normal. Bones: No acute fracture. T12 vertebroplasty changes. IMPRESSION: Known urothelial carcinoma of the urinary bladder. There is a exophytictransmural masslike bladder wall thickening at the bladder base measuringup to 1.1 cm with possible involvement of bilateral UVJs. Interval rightJJ stent with the residual moderate hydronephrosis and hydroureterconcerning for stent dysfunction. Interval left mild hydronephrosis andhydroureter. Interval bilateral pulmonary nodules concerning for pulmonarymetastasis. Circumferential thickening of the lower esophagus could be secondary toesophagitis or signal vomiting. CRITICAL RESULT: No. COMMUNICATION: Per this written report. Drafted by Latosha Hair MD on 09/11/2024 4:45 PM Final report signed by Latosha Hair MD on 09/11/2024 5:15 PM us Ochoa Mederos MD IMG CT PROCEDURES Final Resul t * Hepatitis C Antibody - ED (07/22/2024 7:54 PM EST) Hepatitis C Antibody Negative Negative 07/22/2024 9:11 PM EST [facility] Blood Venous blood specimen / Unknown Venipuncture / Unknown 07/22/2024 7:54 PM EST 07/22/2024 8:09 PM EST us Luz MCCABE LAB BLOOD ORDERABLES Missy l Result [facility] [address] [place] [address] from Last 3 Months or Most Recently Relevant to Health Maintenance Insurance [facility] MEDIC[facility] Advance Directives * Full Code (Latest Code Status on File) Date Activated Date Inactivated Comments 09/21/2024 12:08 AM 09/23/2024 5:33 PM * Full Code Date Activated Date Inactivated Comments 09/12/2024 11:45 AM 09/13/2024 4:59 PM * Full Code Date Activated Date Inactivated Comments 09/11/2024 4:33 PM 09/12/2024 11:45 AM * Full Code Date Activated Date Inactivated Comments 07/22/2024 10:15 PM 07/25/2024 5:10 PM Question Answer Comments Patient has decision-making capacity? Yes Care Teams Physicist [place] Relationship Specialty Start Date End Date Luis Hatfield MD [address] [facility] [address] [place] [address] [facility] - General 07/24/24
--- OUTSIDE RECORDS SUMMARY | 2024-11-21 09:32 | XMS_ITS | Encounter Summary ---
Author Organization [facility] Address [address] [place] [address] Care Team Providers Care Golf Professional Name Role Phone Luis Hatfield MD Primary Care Provider [phone] Encounter Details Date Type Department Care Team (Late st Contact Info) Description 09/20/2024 Orders Only External Location [address] [place] [address] Provider, External Social History Tobacco Use Types [...] any time in the past 12 m [facility], were you homeless or living [...] drink first t kimberlyn in the morning (EYE-CLINIC RECEPTIONIST) to steady your nerves or to get [...] Appointment [facility] [address] [place] [address] 01/15/2025 4:30 PM EDT Office Visit [facility] [address] [place] [address] Ochoa Matias MD [address] [facility] [address] [place] [address] documented as of this encounter Procedures Procedure [...] documented as of this encounter Care Teams Golf Professional Relationship Specialty Start Date End Date Luis Hatfield MD [address] [place] [id number] PCP - General 07/24/24 documented as of this encounter
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
[2024-11-21 09:43] LABS: Basophils # 0.1 K/mm3 (0-0.2); Basophils % 1.7 % (0.1-2.0); Eosinophils # 0.1 Kmm3 (0.0-0.4); Eosinophils % 2.1 % (0.1-12.0); Hematocrit 30.9 % (37.0-47.0); Immature Granulocytes # 0.02 10^3uL; Immature Granulocytes % 0.4 %; Lymphocytes # 2.1 K/mm3 (0.7-4.5); Lymphocytes % 40.2 % (10-50); Mean Corpuscular HGB Conc 32.4 g/dL (31.8-35.4); Mean Corpuscular Hemoglobin 28.5 pg (27.0-31.2); Mean Platelet Volume 8.1 fl (7.4-10.4); Monocytes # 0.6 K/mm3 (0.1-1.0); Neutrophils # 2.3 K/mm3 (1.8-7.8); Neutrophils % 43.6 % (37.0-80.0); Nucleated Red Blood Cells # 0 10^3/uL; Nucleated Red Blood Cells % 0 %; Platelet Count 414 K/mm3 (142-424); Red Blood Count 3.51 M/mm3 (4.20-5.40); Red Cell Distribution Width 20.3 % (11.5-17.5); Red Cell Distribution Width-SD 64.1 fL; White Blood Count 5.2 K/mm3 (4.8-10.8)
[2024-11-21 09:53] LABS: Alanine Aminotransferase 12 U/L (12-78); Albumin Level 3.6 g/dl (3.5-5.0); Albumin/Globulin Ratio 1.3 (1.1-1.8); Alkaline Phosphatase 103 U/L (38-126); Anion Gap 6.5 mEq/L (5-15); Aspartate Amino Transferase 32 U/L (14-36); Bilirubin,Total 1.1 mg/dl (0.2-1.3); Blood Urea Nitrogen 10 mg/dl (7-17); Calcium 9.1 mg/dl (8.4-10.2); Carbon Dioxide 27 mmol/L (22.0-30.0); Chloride 104 mmol/L (98-107); Creatinine Clearance Estimated 59 mL/min (50-200); Estimated Glomerular Filt Rate 62 ml/min (>60); GFR (African American) 75 ML/MIN (>60); Globulin 2.8 g/dL (1.3-3.2); Glucose 87 mg/dl (74-100); Potassium 3.5 mmoL/L (3.5-5.1); Sodium 134 mmol/L (136-145); Total Protein,Serum 6.4 g/dl (6.3-8.2)
[2024-11-21 10:24] LABS: Thyroid Stimulating Hormone 1.03 uIU/mL (0.465-4.68)
[2024-11-21] MEDS: PROCHLORPERAZINE 10MG TABLET 10 MG PO (11:38)
[2024-11-21] MEDS: SODIUM CHLORIDE 0.9% 100ML BAG 100 ML IV (12:00)
[2024-11-21] MEDS: ENFORTUMAB VEDOTIN EJFV IV (12:02)
[2024-11-21] MEDS: SODIUM CHLORIDE 0.9% IV (12:02)
[2024-11-21 12:10] VITALS: BP 141/77; PULSE 89; RESP 18; TEMP 36.9; O2SAT 98
[2024-11-21 12:36] VITALS: BP 138/54; PULSE 94
[2024-11-21] MEDS: PEMBROLIZUMAB 200 MG in 0.9 % SODIUM CHLORIDE 50 ML 116 MG IV (12:41)
[2024-11-21 12:45] VITALS: BP 144/55; PULSE 92
[2024-11-21 13:22] VITALS: BP 136/64; PULSE 90
[2024-11-22 12:18] LABS: Adrenocorticotropic Hormone 19.1 pg/mL (7.2-63.3)
--- OUTSIDE RECORDS SUMMARY | 2024-12-09 20:00 | XMS_ITS | Clinical Summary ---
Author Organization Unknown Care Team Providers Care Elect Equip Maint Eng Name Role Phone YANE OSORIO, JONH Unavailable Unavailable LUAN OT, ANNALISA Unavailable Unavailable JOHANA PT, LORENZO Unavailable Unavailable OLVIN ENERGY CONSERVATION REPRESENTATIVE, CHIQUITA Unavailable Unavailable Payers Payer Name Policy Type Policy Number Effective Date Expira tion Date [employer]AN[employer]arlon.ANN MARIE.PPO.C.AUTH [id number] Problems Condition Name Condition Details Condition Category [...] 200 mg tablet 10-01 00:00: 00 Yes [id number] SLE 1 tablet TWICE DAILY 1 tablet TWICE DAILY (route: oral) Med Classific ation: Anti-Infe ctive Agents bupropion HCl 75 mg tablet 09-27 00:00: 00 Yes [id number] SMOKING CESSATION 1 tablet TWICE DAILY 1 tablet TWICE DAILY (route: oral) Med Classific ation: Central Nervous System Agents ondansetron HCl 4 mg tablet 09-27 00:00: 00 Yes [id number] NAUSEA 1 tablet ONCE EVERY 8 HOURS NEEDED 1 tablet ONCE EVERY 8 HOURS NEEDED (route: oral) Med Classific ation: Gastroint estinal Therapy Agents rosuvastati n 40 mg tablet 09-27 00:00: 00 Yes [id number] CHOLESTEROL 1 tablet DAILY 1 tablet DAILY (route: oral) Med Classific ation: Cardiovas cular Therapy Agents tramadol 50 mg tablet 09-27 00:00: 00 Yes [id number] PAIN 1 tablet EVERY 6 HOURS NEEDED 1 tablet EVERY 6 HOURS NEEDED (route: oral) Med Classific ation: Analgesic , Anti-infl ammatory or Antipyret ic estradiol 0.01% (0.1 mg/gram) vaginal cream 16 00:00: 00 Yes [id number] HORMONE 1 inch VAGINALLY ONCE DAILY FOR 2 WEEKS THEN 3 TIMES 1 inch VAGINALLY ONCE DAILY FOR 2 WEEKS THEN 3 TIMES (route: vaginal) Med Classific ation: Vaginal Products sulfamethox azole 800 mg-trimetho prim 160 mg tablet 14 00:00: 00 Yes [id number] ANTIBIOTIC 1 tablet 2 TIMES DAILY 1 tablet 2 TIMES DAILY (route: oral) Med Classific ation: Anti-Infe ctive Agents sodium chloride 0.9 % injection syringe 09-13 00:00: 00 10-12 00:00 :00 No [id number] Per instruc tions Per instructio ns (route: injection) Med Classific ation: Electroly te Balance-N utritiona l Products hydrocodone 5 mg-acetamin ophen 325 mg tablet 10-31 00:00: 00 Yes [id number] NEEDED FOR PAIN 1-2 tablet EVERY 8 [...] kg/m2 Height 2024-10-12 15:55:00.000 62 [in_us] Pulse 2024-11-18 17:08:00.000 98 /min Pulse 2024-11-12 14:53:00.000 96 /min Pulse 2024-11-05 17:06:00.000 96 /min Pulse 2024-10-19 09:39:00.000 88 /min Pulse 2024-10-16 17:04:00.000 90 /min Pulse 2024-10-12 15:55:00.000 101 /min O2 Saturation (%) 2024-11-18 17:08:00.000 95 % O2 Saturation (%) 2024-11-12 14:53:00.000 96 % O2 Saturation (%) 2024-11-05 17:06:00.000 94 % O2 Saturation (%) 2024-10-19 09:39:00.000 94 % O2 Saturation (%) 2024-10-16 17:04:00.000 96 % O2 Saturation (%) 2024-10-12 15:55:00.000 95 % Respirations 2024-11-18 17:08:00.000 18 /min Respirations 2024-11-12 14:53:00.000 18 /min Respirations 2024-11-05 17:06:00.000 18 /min Respirations 2024-10-19 09:39:00.000 18 /min Respirations 2024-10-16 17:04:00.000 20 /min Respirations 2024-10-12 15:55:00.000 18 /min Weight (lbs) 2024-10-12 15:55:00.000 163 [lb_av] Systolic Blood Pressure 2024-11-18 17:08:00.000 116 mm [Hg] Systolic Blood Pressure 2024-11-12 14:53:00.000 110 mm [Hg] Systolic Blood Pressure 2024-11-05 17:06:00.000 116 mm [Hg] Systolic Blood Pressure 2024-10-19 09:39:00.000 132 mm [Hg] Systolic Blood Pressure 2024-10-16 17:04:00.000 118 mm [Hg] Systolic Blood Pressure 2024-10-12 15:55:00.000 148 mm [Hg] Diastolic Blood Pressure 2024-11-18 17:08:00.000 [...] PHYSICIANS DR DENA HERNANDEZ PCP, DR IQBAL INTERVENTIONAL PHYSIATRIST TO OBSERVE AND ASSESS, RESEARCH PROFESSOR/FEED HANDLER TO OBSERVE FOR RISK FOR FALLS AND INSTRUCT IN FALL PREVENTION, HOME SAFETY, MEDICATION MANAGEMENT, INFECTION PREVENTION, AND NUTRITION MANAGEMENT. RN/RESEARCH PROFESSOR/FEED HANDLER NURSE MAY PERFORM O2 SATURATION LEVEL ON ADMISSION AND PRN FOR SOB AND AMS FOR RN TO ASSESS/RESEARCH PROFESSOR TO OBSERVE PATIENT, WITH NOTIFICATION TO THE PHYSICIAN IF SATURATION IS 90% IN THE ABSENCE OF MORE SPECIFIC PARAMETERS FROM THE PHYSICIAN. AGENCY MAY PERFORM A RESUMPTION OF CARE VISIT FOLLOWING ANY HOSPITAL ADMISSION. RN/RESEARCH PROFESSOR/FEED HANDLER TO MONITOR CO-MORBID CONDITIONS LISTED ON THE PLAN OF CARE AND ANY NEW CONDITIONS THAT PRESENT THEMSELVES DURING THIS EPISODE TO IDENTIFY CHANGES AND INTERVENE TO MINIMIZE COMPLICATIONS. [code = RN TO OBSERVE, ASSESS, EVALUATE, AND DEVELOP AN INDIVIDUALIZED PLAN OF CARE. AGENCY MAY ACCEPT ORDERS FROM CONSULTING PHYSICIANS DR DENA HERNANDEZ PCP, DR IQBAL INTERVENTIONAL PHYSIATRIST TO OBSERVE AND ASSESS, RESEARCH PROFESSOR/FEED HANDLER TO OBSERVE FOR RISK FOR FALLS AND INSTRUCT IN FALL PREVENTION, HOME SAFETY, MEDICATION MANAGEMENT, INFECTION PREVENTION, AND NUTRITION MANAGEMENT. RN/RESEARCH PROFESSOR/FEED HANDLER NURSE MAY PERFORM O2 SATURATION LEVEL ON ADMISSION AND PRN FOR SOB AND AMS FOR RN TO ASSESS/RESEARCH PROFESSOR TO OBSERVE PATIENT, WITH NOTIFICATION TO THE PHYSICIAN IF SATURATION IS 90% IN THE ABSENCE OF MORE SPECIFIC PARAMETERS FROM THE PHYSICIAN. AGENCY MAY PERFORM A RESUMPTION OF CARE VISIT FOLLOWING ANY HOSPITAL ADMISSION. RN/RESEARCH PROFESSOR/FEED HANDLER TO MONITOR CO-MORBID CONDITIONS LISTED ON THE PLAN OF CARE AND ANY NEW CONDITIONS THAT PRESENT THEMSELVES DURING THIS EPISODE TO IDENTIFY CHANGES AND INTERVENE TO MINIMIZE COMPLICATIONS.] Future Scheduled Test MEDICATION MANAGEMENT; RN/RESEARCH PROFESSOR/FEED HANDLER TO REVIEW MEDICATIONS FOR INTERACTIONS, EFFECTIVENESS OF DRUG THERAPY, AND SIGNS/SYMPTOMS OF ADVERSE REACTIONS. MAY INSTRUCT AND REINFORCE MEDICATION TEACHING RELATED TO THE USE OF MEDICATIONS, DOSAGE, FREQUENCY, PURPOSE, SIDE EFFECTS, AND TO REPORT COMPLICATIONS. [code = MEDICATION MANAGEMENT; RN/RESEARCH PROFESSOR/FEED HANDLER TO REVIEW MEDICATIONS FOR INTERACTIONS, EFFECTIVENESS OF DRUG THERAPY, AND SIGNS/SYMPTOMS OF ADVERSE REACTIONS. MAY INSTRUCT AND REINFORCE MEDICATION TEACHING RELATED TO THE USE OF MEDICATIONS, DOSAGE, FREQUENCY, PURPOSE, SIDE EFFECTS, AND TO REPORT COMPLICATIONS.] Future Scheduled Test RISK FOR H OSPITALIZATION; RN TO ASSESS/TEACH, FEED HANDLER/RESEARCH PROFESSOR TO OBSERVE/TEACH PATIENT/CAREGIVER ON RISK FOR HOSPITALIZATION/EMERGENCY ROOM VISITS, TEACH SIGNS AND SYMPTOMS THAT PUT PATIENT AT RISK, WHEN TO NOTIFY NURSE/PHYSICIAN OF COMPLICATIONS/DECLINE, AND WHEN TO CALL 911. [code = RISK FOR HOSPITALIZATION; RN TO ASSESS/TEACH, FEED HANDLER/RESEARCH PROFESSOR TO OBSERVE/TEACH PATIENT/CAREGIVER ON RISK FOR HOSPITALIZATION/EMERGENCY ROOM VISITS, TEACH SIGNS AND SYMPTOMS THAT PUT PATIENT AT RISK, WHEN TO NOTIFY NURSE/PHYSICIAN OF COMPLICATIONS/DECLINE, AND WHEN TO CALL 911.] Future Scheduled Test CARDIOVASC ULAR SYSTEM; RN TO ASSESS/TEACH, RESEARCH PROFESSOR/FEED HANDLER TO OBSERVE/TEACH RELATED TO ALTERED CARDIOVASCULAR STATUS TO MINIMIZE COMPLICATIONS AND REDUCE HOSPITALIZATION. [code = CARDIOVASCULAR SYSTEM; RN TO ASSESS/TEACH, RESEARCH PROFESSOR/FEED HANDLER TO OBSERVE/TEACH RELATED TO ALTERED CARDIOVASCULAR STATUS TO MINIMIZE COMPLICATIONS AND REDUCE HOSPITALIZATION.] Future Scheduled Test HYPERTENSI ON MANAGEMENT; RN TO ASSESS AND TEACH, RESEARCH PROFESSOR/FEED HANDLER TO OBSERVE AND TEACH WARNING SIGNS AND SYMPTOMS TO AVOID HOSPITALIZATION. [code = HYPERTENSION MANAGEMENT; RN TO ASSESS AND TEACH, RESEARCH PROFESSOR/FEED HANDLER TO OBSERVE AND TEACH WARNING SIGNS AND SYMPTOMS TO AVOID HOSPITALIZATION.] Future Scheduled Test RESPIRATOR Y SYSTEM MANAGEMENT; RN TO ASSESS AND TEACH, RESEARCH PROFESSOR/FEED HANDLER TO OBSERVE AND TEACH RELATED TO ALTERED RESPIRATORY STATUS TO MINIMIZE COMPLICATIONS AND REDUCE HOSPITALIZATION. [code = RESPIRATORY SYSTEM MANAGEMENT; RN TO ASSESS AND TEACH, RESEARCH PROFESSOR/FEED HANDLER TO OBSERVE AND TEACH RELATED TO ALTERED RESPIRATORY STATUS TO MINIMIZE COMPLICATIONS AND REDUCE HOSPITALIZATION.] Future Scheduled Test PAIN MANAG EMENT; RN TO ASSESS AND TEACH, FEED HANDLER/RESEARCH PROFESSOR TO OBSERVE AND TEACH AND PROVIDE EDUCATION ON PAIN MANAGEMENT TECHNIQUES. [code = PAIN MANAGEMENT; RN TO ASSESS AND TEACH, FEED HANDLER/RESEARCH PROFESSOR TO OBSERVE AND TEACH AND PROVIDE EDUCATION ON PAIN MANAGEMENT TECHNIQUES.] Future Scheduled Test CANCER MAN AGEMENT; RN TO ASSESS AND TEACH, FEED HANDLER/RESEARCH PROFESSOR TO OBSERVE AND TEACH AND PROVIDE EDUCATION ON CANCER. [code = CANCER MANAGEMENT; RN TO ASSESS AND TEACH, FEED HANDLER/RESEARCH PROFESSOR TO OBSERVE AND TEACH AND PROVIDE EDUCATION ON CANCER.] Future Scheduled Test RN TO ASSE SS AND TEACH, RESEARCH PROFESSOR/FEED HANDLER TO OBSERVE AND TEACH FOR SIGNS AND SYMPTOMS OF SEPSIS AND/OR POST-SEPSIS SYNDROME AND INTERVENE TO MINIMIZE COMPLICATIONS. RN/RESEARCH PROFESSOR/FEED HANDLER TO PROVIDE SKILLED TEACHING TO PATIENT/CAREGIVER ON SEPSIS AND SELF-MANAGEMENT TECHNIQUES. RN/RESEARCH PROFESSOR/FEED HANDLER TO MONITOR PATIENT/CAREGIVER ADHERENCE TO MONITOR AND RECORD VITAL SIGNS INCLUDING TEMPERATURE, HEART RATE, RESPIRATIONS, AND SYMPTOMS. [code = RN TO ASSESS AND TEACH, RESEARCH PROFESSOR/FEED HANDLER TO OBSERVE AND TEACH FOR SIGNS AND SYMPTOMS OF SEPSIS AND/OR POST-SEPSIS SYNDROME AND INTERVENE TO MINIMIZE COMPLICATIONS. RN/RESEARCH PROFESSOR/FEED HANDLER TO PROVIDE SKILLED TEACHING TO PATIENT/CAREGIVER ON SEPSIS AND SELF-MANAGEMENT TECHNIQUES. RN/RESEARCH PROFESSOR/FEED HANDLER TO MONITOR PATIENT/CAREGIVER ADHERENCE TO MONITOR AND RECORD VITAL SIGNS INCLUDING TEMPERATURE, HEART RATE, RESPIRATIONS, AND SYMPTOMS. ] Future Scheduled Test FALL REDUC TION MANAGEMENT; RN TO ASSESS AND OBSERVE, RESEARCH PROFESSOR/FEED HANDLER TO OBSERVE FALL RISK FACTORS AND EDUCATE PATIENT/CAREGIVER ON STRATEGIES TO MINIMIZE THE RISK OF FALLING. [code = FALL REDUCTION MANAGEMENT; RN TO ASSESS AND OBSERVE, RESEARCH PROFESSOR/FEED HANDLER TO OBSERVE FALL RISK FACTORS AND EDUCATE [...] AND PLAN OF CARE. BATHING/SHOWERING (OT/DUSTY) DRESSING (OT/NAPHTHALENE STILL OPERATOR) ACTIVITIES OF DAILY LIVING (OT/DUSTY) MEAL PREPARATION AND CLEANUP (OT/DUSTY) BATH/SHOWER TRANSFER (OT/NAPHTHALENE STILL OPERATOR) HOME ACTIVITY / EXERCISE PROGRAM (OT/NAPHTHALENE STILL OPERATOR) POSTURAL CONTROL/BALANCE (OT/DUSTY) OT/DUSTY MAY EDUCATE ON PAIN MANAGEMENT CLINICALLY INDICATED, INCLUDING NON-PHARMACOLOGICAL PAIN REDUCTION TECHNIQUES AND USE OF CRYOTHERAPY OR HEAT UP TO 20 MIN AT A TIME FOR PAIN MANAGEMENT. OT/NAPHTHALENE STILL OPERATOR TO INSTRUCT PATIENT/CAREGIVER ON RISK FOR HOSPITALIZATION/EMERGENCY [...] THERAPY EVALUATION AND PLAN OF CARE. BATHING/SHOWERING (OT/NAPHTHALENE STILL OPERATOR) DRESSING (OT/NAPHTHALENE STILL OPERATOR) ACTIVITIES OF DAILY LIVING (OT/DUSTY) MEAL PREPARATION AND CLEANUP (OT/DUSTY) BATH/SHOWER TRANSFER (OT/NAPHTHALENE STILL OPERATOR) HOME ACTIVITY / EXERCISE PROGRAM (OT/NAPHTHALENE STILL OPERATOR) POSTURAL CONTROL/BALANCE (OT/NAPHTHALENE STILL OPERATOR) OT/NAPHTHALENE STILL OPERATOR MAY EDUCATE ON PAIN MANAGEMENT CLINICALLY INDICATED, INCLUDING NON-PHARMACOLOGICAL PAIN REDUCTION TECHNIQUES AND USE OF CRYOTHERAPY OR HEAT UP TO 20 MIN AT A TIME FOR PAIN MANAGEMENT. OT/NAPHTHALENE STILL OPERATOR TO INSTRUCT PATIENT/CAREGIVER ON RISK FOR HOSPITALIZATION/EMERGENCY ROOM VISITS, TEACH SIGNS AND SYMPTOMS THAT PUT PATIENT AT RISK, WHEN TO NOTIFY NURSE/PHYSICIAN OF COMPLICATIONS/DECLINE, AND WHEN TO CALL 911. OT / NAPHTHALENE STILL OPERATOR TO IDENTIFY FALL RISK FACTORS; EDUCATE THE PATIENT/CAREGIVER ON WAYS TO REDUCE FALL RISK FACTORS AND ESTABLISH HOME EXERCISE PROGRAM TO MINIMIZE FALL RISK. MAY TEACH THE PATIENT FLOOR RECOVERY WHEN CLINICALLY APPROPRIATE.] Goal Patient Goal - TO GET STRONG ER [...] AND HOME SAFETY BY END OF EPISODE. Encounters Start Date/Time End Date/Time Encounter Type Admission Type Attending [facility] Care Department Encounter ID Discharge Date Discharge Status Discharge Condition Discharge Reason Percent Goals Met 2024-10-12 00:00:00 2024-12-10 00:00:00 Outpatient NEW ADMISSION ANNALISA ROLAND [facility] [id number]
== END 2024-11-21 13:30 | disposition home or self-care (01) ==
LOC: INF 09:17
PROVIDERS: PCP Family Medicine; Visit Provider Internal Medicine Medical Oncology
DX: Z51.11 Encounter for antineoplastic chemotherapy (principal); C67.9 Malignant neoplasm of bladder, unspecified
CPT/HCPCS: 80053; 82024; 82533; 84443; 85025; 96413; 96417; J9177; J9271; Q0164

== ENCOUNTER 2024-12-12 09:43 | Outpatient (CLI) | payer MEDICARE, SELFPAY ==
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
--- OUTSIDE RECORDS SUMMARY | 2024-12-10 05:34 | XMS_ITS | Continuity of Care Document ---
Author Organization [facility] Phone Care Team Providers Care Ferry Engineer Name Role Phone ELDA IQBAL Unavailable NO, DEFINED P Primary Care Unavailable JAYASHREE SANCHEZ Admitting JAYASHREE SANCHEZ Primary Attending MEDICATIONS HOME MEDICATIONS Status RXNORM NDC Medication Dose Route Frequency Dates Comments Reported By Updated By Drug Treatment Unknown DISCHARGE MEDICATIONS Status RXNORM NDC Medication Dose Route Frequency Dates Comments Physician Updated By No Discharge Medication Info rmation Available INPATIENT MEDICATIONS Status RXNORM NDC Medication Dose Route Frequency Rat e Quantity Dates Comments Physician Updated By No Inpatient Medication Info rmation Available SOCIAL HISTORY SOCIAL HISTORY SNOMED-CT Social History Element Description Effective Dates Offered Cessation Comment UpdatedBy [id number] Smoking Status Unknown If Ever Smoked SOCIAL HISTORY - Gender Sex: Female SOCIAL HISTORY - Status : status i nformation is not available Intention in Next Year: intention information is not available SOCIAL HISTORY - Sexual Behavior Sexual Orientation Gender Identity SNOMED-CT Description SNO MED -CT Description Activity Level No of Partners Partner Type UpdatedBy Information is not available HEALTH CONCERNS Problems Concern Status Health Concern problem infor mation not available. Smoking Status Status Years Used Consumed packs p er day Health Concern smoking histo ry information not available. Family History Concern Status Health Concern family histor y information not available. ENCOUNTERS ENCOUNTER INFORMATION Reason for Visit RADIATION Admission November 20, 2024 12:54:00 PM [facility] [address] [place] [address] Discharge December 10, 2024 3:59:00 AM [facility] DISC HARGED TO HOME OR SELF CARE ENCOUNTER DIAGNOSES Notes information is not peetr ilable. Code System Diagnosis Onset Date Diagnosis information is not available. 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 Role on Team Status Start Date End Date Update d By NO DEFINED PRIMARY C PCP normal November 07, 2024 6:09:13 PM [facility] December 10, 2024 3:59:00 AM [facility] [id number] on November 07, 2024 6:09:13 PM [facility] RASHEED Phan Referring normal November 07, 2024 6:09:13 PM [facility] December 10, 2024 3:59:00 AM [facility] [id number] on November 07, 2024 6:09:13 PM [facility] DANIEL GAO Attending normal November 07, 2 025 6:09:13 PM [facility] December 10, 2024 3:59:00 AM [facility] [id number] on November 07, 2024 6:09:13 PM [facility] DANIEL GAO Admitting normal November 07, 2 025 6:09:13 PM [facility] December 10, 2024 3:59:00 AM [facility] [id number] on November 07, 2024 6:09:13 PM [facility]
--- OUTSIDE RECORDS SUMMARY | 2024-12-12 09:48 | XMS_ITS | Encounter Summary ---
Author Organization Healthcare Address [address] [place] [address] Care Team Providers Care Liability Claims Manager Name Role Phone Luis Hatfield MD Primary Care Provider [phone] Reason for Visit * Reason Onset Date Comments [facility] 10/24/2024 Encounter Details Date Type Department Care Team (Late st Contact Info) Description 10/24/2024 Telephone [facility] [address] [place] [address] Ochoa Matias MD [address] [place] [address] 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) to steady your nerves or to get [...] Care Team (Late st Contact Info) Description 12/20/2024 9:00 AM EDT Appointment [facility] Interventional Radiology [address] [place] [address] 01/15/2025 4:30 PM EDT Office Visit [facility] [address] [place] [address] cOhoa Matias MD [address] [place] [address] documented as of this encounter Visit Diagnoses [...] documented as of this encounter Care Teams Liability Claims Manager Relationship Specialty Start Date End Date Luis Hatfield MD [address] [place] [address] PCP - General 07/24/24 documented as of this encounter
--- OUTSIDE RECORDS SUMMARY | 2024-12-12 09:48 | XMS_ITS | Encounter Summary ---
Author Organization Healthcare Address [address] [place] [address] Care Team Providers Care Deputy Clerk Name Role Phone Luis Hatfield MD Primary Care Provider [phone] Reason for Visit * Reason Onset Date Comments [facility] 11/26/2024 Encounter Details Date Type Department Care Team ([facility] st Contact Info) Description 11/26/2024 Telephone [facility] [address] [place] [address] Ochoa Matias MD [address] [place] [address] [facility] Social History Tobacco Use Types Packs/Day [...] any time in the past 12 m [facility], were you homeless or living in a nursing home (including now)? 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 No answer. LVM. CG will attempt again. * Telephone Encounter - Phyllis Burgess - 11/26/2024 9:46 AM EDT Month 2 Attempt 1: Care Guide (CG) called patient (pt) at . No answer. LVM. CG will attempt again. documented in this encounter Plan of Treatment Upcoming Encounters Date Type Department Care Team (Late st Contact Info) Description 12/20/2024 9:00 AM EDT Appointment [facility] Interventional Radiology [address] [place] [address] 01/15/2025 4:30 PM EDT Office Visit [facility] [address] [place] [address] Ochoa Matias MD [address] [facility] [address] [place] [address] documented as of this encounter Visit Diagnoses [...] documented as of this encounter Care Teams Deputy Clerk Relationship Specialty Start Date End Date Luis Hatfield MD [address] [facility] [place] [address] [place] [address] PCP - General 07/24/24 documented as of this encounter
--- OUTSIDE RECORDS SUMMARY | 2024-12-12 09:48 | XMS_ITS | Clinical Summary ---
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 4 Active Active Problems Problem Noted Date Diagnosed Date Urinary tract infection 09/21/2024 Bladder cancer 07/25/2024 Resolved Problems Problem Noted Date Diagnosed Date Resolved Date VINCENZO (acute kidney injury) 09/11/2024 Acute blood loss anemia 07/22/202407/13 Bladder mass 07/22/2024 07/25/2024 Encounters Date Type Department Care Team Description 12/02/2024 Telephone [facility] A Interventional Radiology [address] [place] [address] Cecille Escobedo RN 11/26/2024 Telephone [facility] Multidisciplinary Oncology Clinic [address] [place] [address] Ochoa Matias MD [facility] 11/01/2024 Telephone [facility] Multidisciplinary Oncology Clinic [address] [place] [address] Ochoa Matias MD 10/24/2024 Telephone [facility] Multidisciplinary Oncology Clinic [address] [place] [address] Ochoa Matias MD [facility] 10/18/2024 Telephone [facility] Multidisciplinary Oncology Clinic [address] [place] [address] Ochoa Matias MD 10/09/2024 1:15 PM EDT Office Visit [facility] Multidisciplinary Oncology Clinic [address] [place] [address] Ochoa Matias MD Malignant neoplasm of urinary bladder, unspecified site (CMS/HCC) (Primary Dx) 10/09/2024 11:30 AM EDT Office Visit [facility] Vascular Interventional Radiology [address] [facility] [address] [place] [address] Kristen Bryant, TACTICAL DECEPTION PLANS OFFICER Malignant neoplasm of urinary bladder, unspecified site (CMS/HCC) (Primary Dx); Bilateral hydronephrosis 10/09/2024 Travel 09/25/2024 Telephone [facility] Multidisciplinary Oncology Clinic [address] [place] [address] Ochoa Matias MD [facility] 09/20/2024 8:53 PM EDT - 09/23/2024 3:28 PM EDT Hospital Encounter [facility] A Inpatient [facility] [address] [place] [address] Chavo Walden MD Micciche, MD Talisha Queen, MD Andrew Hung, Eleanor Mason MD Acute cystitis with hematuria (Primary Dx) Discharge Disposition: Home or Self Care 09/20/2024 Travel 09/20/2024 Orders Only External Location [address] [place] [address] Provider, External 09/20/2024 Orders Only External Location [address] [place] [address] Provider, External 09/20/2024 Orders Only External Location [address] [place] [address] Provider, External 09/20/2024 Orders Only External Location [address] [place] [address] Provider, External 09/20/2024 Orders Only External Location [address] [place] [address] Provider, External 09/20/2024 Orders Only External Location [address] [place] [address] Provider, External 09/20/2024 Orders Only External Location [address] [place] [address] Provider, External 09/20/2024 Orders Only External Location [address] [place] [address] Provider, External 09/20/2024 Orders Only External Location [address] [place] [address] Provider, External 09/20/2024 Orders Only External Location [address] [place] [address] Provider, External 09/16/2024 Telephone [facility] A Interventional Radiology [address] [place] [address] Cecille Escobedo RN 09/16/2024 Telephone [facility] A Interventional Radiology [address] [place] [address] Cecille Escobedo RN 09/12/2024 Travel 09/11/2024 12:04 PM EDT - 09/13/2024 2:58 PM EDT Hospital Encounter P[facility] H Inpatient [address] [place] [address] Ochoa Mederos MD Hamm, Joel M, MD Dropkin, Benjamin M, MD Malignant neoplasm of urinary bladder, unspecified site (CMS/HCC) (Primary Dx); VINCENZO (acute kidney injury) ([facility]) Discharge Disposition: Home or Self Care from Last 3 Months Social History Tobacco Use Types Packs/Day Years Used Date Smoking Tobacco: Former Cigarettes 0.1 51.5 S tarted: 1974 Smokeless Tobacco: Never Tobacco [...] any time in the past 12 m [facility], were you homeless or living in a care home (including now)? 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 0 09/11/2024 CAGE Questionnaire Score 0 025 Utilities Answer Date Recorded In the past 12 months has th e [employer], gas, oil, or water company threatened to [...] Appointment [facility] A Interventional Radiology [address] [place] [address] 01/15/2025 4:30 PM EDT Office Visit [facility] Multidisciplinary Oncology Clinic [address] [place] [address] Ochoa Matias MD [address] [place] [address] Health Maintenance Due Date Last Done Comments [facility]-Bone Density Scan 1954 [facility]-Medicare Annual Wellness (AWV) 1955 [facility]-Infant/Child/Adol SDOH Screenings 1955 [id number] Vaccine (#1) 1959 [facility]-DTaP,Tdap,and Td Vaccines (1 - Tdap) 08/16/1996 08/15/1996 CT Colonography 1999 Colonoscopy 1999 FIT-DNA 1999 FIT 1999 FOBT 1999 Sigmoidoscopy 1999 [facility]-Colorectal Cancer Screening 1999 [facility]-Breast Cancer Screening 02/29/2004 [facility]-Zoster Vaccines (2 of 2) 04/16/2020 02/20/2020 [facility]-Influenza Vaccine (#1) 2025 [facility]- SDOH Screenings 03/25/2025 [facility]-Adult SDOH [...] this topic Medical Devices Implanted Type Area Director Of Development Device Identifier Shelf Expiration Date Model / Serial / Lot Stent Ureteral Double Pigtail Pos 6fr 26cm - S. - [id number] Implanted:Qty: 1 on 07/23/2024 by Ochoa Matias MD at [facility] Stent N/A: [id number] 03/11/2026 [id number] / . / [id number] Procedures Procedure Name Priority Date/Time Associated Diagnosis [...] / INR Routine 09/12/2024 4:39 AM EDT HEPATITIS C ANTIBODY - ED W/REFLEX [...] type: flexible Cystoscopy route: transurethral Cystoscopy location: [place] bladder Irrigation used: saline Position: supine Urethra [...] Hold for add-ons 09/21/2024 7:01 AM EDT [facility] Comment:Auto resulted. Blood Venous blood specimen / Unknown 09/21/2024 4:17 AM EDT 09/21/2024 4:17 AM EDT us Abhilash Woodall MD LAB BLOOD ORDERABLES Final Resul t [facility] [address] [place] [address] * Phosphorus (09/21/2024 3:59 AM EDT) Only the most recent of3 resultswithin the time period is included. Phosphorus, Plasma 3.3 2.5 - 4.5 mg/dL 09/21/2024 4:56 AM EDT [facility] Blood Venous blood specimen / Unknown Venipuncture / Unknown 09/21/2024 3:59 AM EDT 09/21/2024 4:24 AM EDT us Abhilash Woodall MD LAB BLOOD ORDERABLES Final Resul t Performing Organization Address City/[facility]/ZIP Co de Phone Number [facility] [address] [place] [address] * (ABNORMAL) Magnesium, Plasma (09/21/2024 3:59 AM EDT) Only the most recent of4 resultswithin the time period is included. Magnesium, Plasma 2.6(H) 1.9 - 2.4 mg/dL 09/21/2024 4:56 AM EDT [facility] Blood Venous blood specimen / Unknown Venipuncture / Unknown 09/21/2024 3:59 AM EDT 09/21/2024 4:24 AM EDT us Abhilash Woodall MD LAB BLOOD ORDERABLES Final Resul t Performing Organization Address City/[facility]/ZIP Co de Phone Number [facility] [address] [place] [address] * (ABNORMAL) Vitamin B12 (09/21/2024 3:59 AM EDT) Vitamin B12, Serum 1,924(H) 210 - 1,033 pg/mL 09/21/2024 5:11 AM EDT [facility] Blood Venous blood specimen / Unknown Venipuncture / Unknown 09/21/2024 3:59 AM EDT 09/21/2024 4:24 AM EDT us Abhilash Woodall MD LAB BLOOD ORDERABLES Final Resul t [facility] [address] [place] [address] * (ABNORMAL) Comprehensive metabolic panel (09/21/2024 3:59 AM EDT) Only the most recent of2 resultswithin the time period is included. Glucose, Plasma 123(H) 74 - 99 mg/dL 09/21/2024 4:56 AM EDT [facility] BUN, Plasma 25(H) 8 - 23 mg/dL 09/21/2024 4:56 AM EDT [facility] Creatinine, Plasma 1.25(H) 0.60 - 1.10 mg/dL 09/21/2024 4:56 AM EDT [facility] BUN/Creatinine Ratio 20 09/21/2024 4:56 AM EDT [facility] Sodium, Plasma 137 136 - 145 mmol/L 09/21/2024 4:56 AM EDT [facility] Potassium, Plasma 4.6 3.6 - 4.9 mmol/L 09/21/2024 4:56 AM EDT [facility] Chloride, Plasma 99 97 - 107 mmol/L 09/21/2024 4:56 AM EDT [facility] CO2, Plasma 25 22 - 29 mmol/L 09/21/2024 4:56 AM EDT [facility] Anion Gap 13 6 - 16 mmol/L 09/21/2024 4:56 AM EDT [facility] Total Calcium, Plasma 10.0 8.9 - 10.2 mg/dL 09/21/2024 4:56 AM EDT [facility] Total Protein 7.2 6.3 - 7.9 g/dL 09/21/2024 4:56 AM EDT [facility] Albumin, Plasma 3.7 3.5 - 5.2 g/dL 09/21/2024 4:56 AM EDT [facility] AST, Plasma 16 10 - 35 U/L 09/21/2024 4:56 AM EDT [facility] ALT, Plasma 8(L) 10 - 35 U/L 09/21/2024 4:56 AM EDT [facility] Alkaline Phosphatase, Plasma 88 46 - 142 U/L 09/21/2024 4:56 AM EDT [facility] Total Bilirubin, Plasma 0.3 0.2 - 1.1 mg/dL 09/21/2024 4:56 AM EDT [facility] eGFRcr 46.5 mL/min/1.7 3m*2 09/21/2024 4:56 AM EDT [facility] Comment:Reported eGFRcr in m L/min/1.73m2 is based the CKD-EPI 2020 equation that does not use a race coefficient. Blood Venous blood specimen / Unknown Venipuncture / Unknown 09/21/2024 3:59 AM EDT 09/21/2024 4:24 AM EDT Abhilash Woodall MD LAB BLOOD ORDERABLES Final Resul t Performing Organization Address [facility] [place] [address] * Multi Drug Resistance Test (09/21/2024 2:33 AM EDT) Pathologist [facility] Culture No growth at day 1 09/21/2024 11:59 PM EDT [facility] Swab (Nares and Chantell Rectal) Non-blood Collection / Unknown 09/21/2024 2:33 AM EDT 09/21/2024 3:40 AM EDT Abhilash Woodall MD LAB MICROBIOLOGY - GENERAL ORDER GURWINDER Final Result Performing Organization Address [facility] [place] [address] * Beta Glucan (Fungitel), Serum (09/21/2024 12:47 AM EDT) Beta Glucan (Fungitell) <31 <80 pg/mL 09/24/2024 4:05 PM EDT [facility]) Comment: Interpretation: The Fungitell assay does not detect certain fungal species such as the genus Cryptococcus (Taina et al. 1991) which produces very low levels of (1-3)-Naok-F-Ynqyoi. The assay also does not detect the Zygomycetes such as Absidia, Mucor and Rhizopus (Lore et al. 1994) which are not known to produce (1-3)-Fcgx-B-Sfhsfx. In addition, the yeast phase of Blastomyces dermatitidis produces little (1-3)-Hpdr-L-Tymhqm and may not be detected by the [...] characteristics for these modifications were determined by [employer]. If sample result is greater than 500 pg/mL, physician may order a titer of the sample. Please contact [employer] if you would like to order a retest of this sample to obtain an actual value. Samples are held for 1 week after initial testing date. Testing Performed at: [facility] [address] [place] [address], [address] [place] [address] Data Entry Email Processor: Jorge Villegas, PhD BRYANT ([facility]) [place] # [id number] FLAG Interpretation: A = Abnormal, H = High, L = Low Blood Venous blood specimen / Unknown Venipuncture / Unknown 09/21/2024 12:47 AM EDT 09/21/2024 12:57 AM EDT Narrative FOSTER MayraMICHAEL) - 09/24/2024 4:05 PM EDT [facility]Immediate us Abhilash Woodall MD LAB BLOOD ORDERABLES Final Resul t FOSTER AVILA) * Blood Culture (Aerobic/Anaerobet Set) (09/20/2024 11:13 PM EDT) Only the most recent of2 resultswithin the time period is included. Culture No growth at day 5 09/26/2024 12:02 AM EDT [facility] Blood Venous blood specimen / Unknown Venipuncture / Unknown 09/20/2024 11:13 PM EDT 09/20/2024 11:35 PM EDT us Chavo Walden MD LAB MICROBIOLOGY - GENERAL OR DERABLES Final Result Performing Organization Address [facility] Co de Phone Number [facility] [address] [place] [address] * SEND CLARISSA MESSAGE (09/20/2024 10:40 PM EDT) Urine Urine specimen from nephrostomy tube / Unknown Non-blood Collection / Unknown 09/20/2024 10:40 PM EDT 09/20/2024 10:57 PM EDT us Chavo Walden MD LAB URINE ORDERABLES Final Re sult Performing Organization Address [facility] [place] [address] * Urine Stafford Panel (09/20/2024 10:40 PM EDT) Extra Sent for Culture 09/21/2024 12:02 AM EDT [facility] Urine Urine specimen from nephrostomy tube / Unknown Non-blood Collection / Unknown 09/20/2024 10:40 PM EDT 09/20/2024 10:57 PM EDT us Chavo Walden MD LAB URINE ORDERABLES Final Re sult Performing Organization Address [facility] de Phone Number [facility] [address] [place] [address] * Urinalysis Microscopic Examination (09/20/2024 10:40 PM EDT) Only the most recent of2 resultswithin the time period is included. Urine Urine specimen from nephrostomy tube / Unknown Non-blood Collection / Unknown 09/20/2024 10:40 PM EDT 09/20/2024 10:43 PM EDT us Chavo Walden MD LAB URINE ORDERABLES Final Re sult Performing Organization Address City/[facility]/ZIP Co de Phone Number [facility] [address] [place] [address] * (ABNORMAL) Urinalysis with reflex microscopic (Culture NOT Included) (09/20/2024 10:40 PM EDT) Only the most recent of2 resultswithin the time period is included. Color, Urine Yellow LAB URINALYSIS - AUTOMATED METHOD 09/20/2024 11:31 PM EDT [facility] Clarity, Urine Cloudy LAB URINALYSIS - AUTOMATED METHOD 09/20/2024 11:31 PM EDT [facility] Spec [place], Urine 1.021 1.005 - 1.030 LAB URINALYSIS - AUTOMATED METHOD 09/20/2024 11:31 PM EDT [facility] pH, Urine 6.5 5.0 - 8.0 LAB URINALYSIS - AUTOMATED METHOD 09/20/2024 11:31 PM EDT [facility] Protein, Urine >=300(A) Negative mg/dL LAB URINALYSIS - AUTOMATED METHOD 09/20/2024 11:31 PM EDT [facility] Glucose, Urine Negative Negative mg/dL LAB URINALYSIS - AUTOMATED METHOD 09/20/2024 11:31 PM EDT [facility] Ketones, Urine Negative Negative mg/dL LAB URINALYSIS - AUTOMATED METHOD 09/20/2024 11:31 PM EDT [facility] Blood, Urine Large(A) Negative LAB URINALYSIS - AUTOMATED METHOD 09/20/2024 11:31 PM EDT [facility] Bilirubin, Urine Negative Negative LAB URINALYSIS - AUTOMATED METHOD 09/20/2024 11:31 PM EDT [facility] Urobilinogen, Urine 0.2 0.2 to 1.0 mg/dL LAB URINALYSIS - AUTOMATED METHOD 09/20/2024 11:31 PM EDT [facility] Leukocytes, Urine Moderate(A) Negative LAB URINALYSIS - AUTOMATED METHOD 09/20/2024 11:31 PM EDT [facility] Nitrite, Urine Negative Negative LAB URINALYSIS - AUTOMATED METHOD 09/20/2024 11:31 PM EDT [facility] RBC, Urine >50(A) 0 to 3 /HPF LAB URINALYSIS - AUTOMATED METHOD 09/20/2024 11:31 PM EDT [facility] Comment:This result was prev iously suppressed from the chart. WBC, Urine >50(A) 0 to 5 /HPF LAB URINALYSIS - AUTOMATED METHOD 09/20/2024 11:31 PM EDT [facility] Comment:This result was prev iously suppressed from the chart. Squamous Epithelial Cells 0 - 2 0 to 5 /HPF LAB URINALYSIS - AUTOMATED METHOD 09/20/2024 11:31 PM EDT [facility] Comment:This result was prev iously suppressed from the chart. Hyaline Casts 11 - 20(A) 0 to 5 /LPF LAB URINALYSIS - AUTOMATED METHOD 09/20/2024 11:31 PM EDT [facility] Comment:This result was prev iously suppressed from the chart. Bacteria, Urine Present Negative LAB URINALYSIS - AUTOMATED METHOD 09/20/2024 11:31 PM EDT [facility] Comment:This result was prev iously suppressed from the chart. Yeast (Budding and/or Pseudohyphae) Present(A) Absent LAB URINALYSIS - AUTOMATED METHOD 09/20/2024 11:31 PM EDT [facility] Comment:This result was prev iously suppressed from the chart. Urine Urine specimen from nephrostomy tube / Unknown Non-blood Collection / Unknown 09/20/2024 10:40 PM EDT 09/20/2024 10:43 PM EDT us Chavo Walden MD LAB URINE ORDERABLES Final Re sult [facility] [address] [place] [address] * (ABNORMAL) Urine Culture (09/20/2024 10:40 PM EDT) Only the most recent of2 resultswithin the time period is included. Culture 1,000 - 10,000 CFU/mL Staphylococcus coagulase negative(A) 09/25/2024 11:49 AM EDT [facility] Comment:Edited result: Previ ously reported as Gram positive cocci on 09/21/2024 at 2221 EDT. Culture 1,000 - 10,000 CFU/mL Clavispora lusitaniae (formerly Elsa lusitaniae)(A) 09/25/2024 11:49 AM EDT [facility] Comment: This isolate has been identified using the FDA Approved MALDI Biotyper CA System Contact Microbiology (95428) within 24 hours if susceptibility required. The [...] MICROBIOLOGY - GENERAL OR DERABLES Final Result [facility] [address] [place] [address] * (ABNORMAL) CBC w/diff (09/20/2024 8:52 PM EDT) WBC Count 14.96(H) 3.70 - 10.30 10*3/uL LAB HEMATOLOGY METHOD 09/20/2024 8:55 PM EDT [facility] RBC Count 3.50(L) 3.90 - 5.20 10*6/uL LAB HEMATOLOGY METHOD 09/20/2024 8:55 PM EDT [facility] HGB 10.1(L) 11.2 - 15.7 g/dL LAB HEMATOLOGY METHOD 09/20/2024 8:55 PM EDT [facility] HCT 30.2(L) 34.0 - 45.0 % LAB HEMATOLOGY METHOD 09/20/2024 8:55 PM EDT [facility] Platelet Count 513(H) 155 - 369 10*3/uL LAB HEMATOLOGY METHOD 09/20/2024 8:55 PM EDT [facility] MCV 86 79 - 98 fL LAB HEMATOLOGY METHOD 09/20/2024 8:55 PM EDT [facility] MCH 28.9 26.0 - 32.0 pg LAB HEMATOLOGY METHOD 09/20/2024 8:55 PM EDT [facility] MCHC 33.4 30.7 - 35.5 g/dL LAB HEMATOLOGY METHOD 09/20/2024 8:55 PM EDT [facility] RDW 14.3 11.5 - 14.5 % LAB HEMATOLOGY METHOD 09/20/2024 8:55 PM EDT [facility] MPV 8.1(L) 8.8 - 12.5 fL LAB HEMATOLOGY METHOD 09/20/2024 8:55 PM EDT [facility] nRBC 0.0 <=0.0 per 100 WBCs LAB HEMATOLOGY METHOD 09/20/2024 8:55 PM EDT [facility] Differential Type Automated LAB HEMATOLOGY METHOD 09/20/2024 8:55 PM EDT [facility] Neutrophils % 76 % LAB HEMATOLOGY METHOD 09/20/2024 8:55 PM EDT [facility] Lymphocytes % 15 % LAB HEMATOLOGY METHOD 09/20/2024 8:55 PM EDT [facility] Monocytes % 7 % LAB HEMATOLOGY METHOD 09/20/2024 8:55 PM EDT [facility] Eosinophils % 1 % LAB HEMATOLOGY METHOD 09/20/2024 8:55 PM EDT [facility] Basophils % 0 % LAB HEMATOLOGY METHOD 09/20/2024 8:55 PM EDT [facility] Immature Granulocytes % 1 % LAB HEMATOLOGY METHOD 09/20/2024 8:55 PM EDT [facility] Neutrophils Absolute 11.29(H) 1.60 - 6.10 10*3/uL LAB HEMATOLOGY METHOD 09/20/2024 8:55 PM EDT [facility] Lymphocytes Absolute 2.27 1.20 - 3.90 10*3/uL LAB HEMATOLOGY METHOD 09/20/2024 8:55 PM EDT [facility] Monocytes Absolute 1.05(H) 0.30 - 0.90 10*3/uL LAB HEMATOLOGY METHOD 09/20/2024 8:55 PM EDT [facility] Eosinophils Absolute 0.18 0.00 - 0.50 10*3/uL LAB HEMATOLOGY METHOD 09/20/2024 8:55 PM EDT [facility] Basophils Absolute 0.06 0.00 - 0.10 10*3/uL LAB HEMATOLOGY METHOD 09/20/2024 8:55 PM EDT [facility] Immature Granulocytes Absolute 0.11(H) 0.00 - 0.06 10*3/uL LAB HEMATOLOGY METHOD 09/20/2024 8:55 PM EDT [facility] Blood Venous blood specimen / Unknown Venipuncture / Unknown 09/20/2024 8:52 PM EDT 09/20/2024 8:53 PM EDT Narrative [facility] - 09/20/2024 8:55 PM EDT Therapeutic decision making should be based on absolute values, rather than percentages. us Sheree Augustine MD LAB BLOOD ORDERABLES Final Resu lt Performing Organization Address City/[facility]/ZIP Co de Phone Number [facility] [address] [place] [address] * Lipase (09/20/2024 8:52 PM EDT) Lipase, Plasma 42 19 - 63 U/L 09/20/2024 9:13 PM EDT [facility] Blood Venous blood specimen / Unknown Venipuncture / Unknown 09/20/2024 8:52 PM EDT 09/20/2024 8:53 PM EDT Sheree Augustine MD LAB BLOOD ORDERABLES Final Resu lt Performing Organization Address City/[facility]/[place] [address] * CT THORACIC OUTSIDE IMAGES (09/20/2024 12:35 [...] of2 resultswithin the time period is included. WBC Count 9.39 3.70 - 10.30 10*3/uL LAB HEMATOLOGY METHOD 09/13/2024 4:15 AM EDT [facility] RBC Count 3.02(L) 3.90 - 5.20 10*6/uL LAB HEMATOLOGY METHOD 09/13/2024 4:15 AM EDT [facility] HGB 8.8(L) 11.2 - 15.7 g/dL LAB HEMATOLOGY METHOD 09/13/2024 4:15 AM EDT [facility] HCT 26.7(L) 34.0 - 45.0 % LAB HEMATOLOGY METHOD 09/13/2024 4:15 AM EDT [facility] Platelet Count 428(H) 155 - 369 10*3/uL LAB HEMATOLOGY METHOD 09/13/2024 4:15 AM EDT [facility] MCV 88 79 - 98 fL LAB HEMATOLOGY METHOD 09/13/2024 4:15 AM EDT [facility] MCH 29.1 26.0 - 32.0 pg LAB HEMATOLOGY METHOD 09/13/2024 4:15 AM EDT [facility] MCHC 33.0 30.7 - 35.5 g/dL LAB HEMATOLOGY METHOD 09/13/2024 4:15 AM EDT [facility] RDW 14.1 11.5 - 14.5 % LAB HEMATOLOGY METHOD 09/13/2024 4:15 AM EDT [facility] MPV 8.2(L) 8.8 - 12.5 fL LAB HEMATOLOGY METHOD 09/13/2024 4:15 AM EDT [facility] nRBC 0.0 <=0.0 per 100 WBCs LAB HEMATOLOGY METHOD 09/13/2024 4:15 AM EDT [facility] Blood Venous blood specimen / Unknown Venipuncture / Unknown 09/13/2024 3:41 AM EDT 09/13/2024 3:52 AM EDT us Pankaj Robles MD LAB BLOOD ORDERABLES Final Result [facility] [address] [place] [address] * (ABNORMAL) Basic metabolic panel (09/13/2024 3:41 AM EDT) Only the most recent of2 resultswithin the time period is included. Glucose, Plasma 99 74 - 99 mg/dL 09/13/2024 4:24 AM EDT [facility] BUN, Plasma 30(H) 8 - 23 mg/dL 09/13/2024 4:24 AM EDT [facility] Creatinine, Plasma 2.15(H) 0.60 - 1.10 mg/dL 09/13/2024 4:24 AM EDT [facility] BUN/Creatinine Ratio 14 09/13/2024 4:24 AM EDT [facility] Sodium, Plasma 136 136 - 145 mmol/L 09/13/2024 4:24 AM EDT [facility] Potassium, Plasma 4.7 3.6 - 4.9 mmol/L 09/13/2024 4:24 AM EDT [facility] Chloride, Plasma 107 97 - 107 mmol/L 09/13/2024 4:24 AM EDT [facility] CO2, Plasma 15(L) 22 - 29 mmol/L 09/13/2024 4:24 AM EDT [facility] Anion Gap 14 6 - 16 mmol/L 09/13/2024 4:24 AM EDT [facility] Total Calcium, Plasma 8.9 8.9 - 10.2 mg/dL 09/13/2024 4:24 AM EDT [facility] eGFRcr 24.2 mL/min/1.7 3m*2 09/13/2024 4:24 AM EDT [facility] Comment:Reported eGFRcr in m L/min/1.73m2 is based the CKD-EPI 2020 equation that does not use a race coefficient. Blood Venous blood specimen / Unknown Venipuncture / Unknown 09/13/2024 3:41 AM EDT 09/13/2024 3:51 AM EDT us Pankaj Robles MD LAB BLOOD ORDERABLES Final Result Performing Organization Address City/[facility]/ZIP Co de Phone Number [facility] [address] [place] [address] * Microbiology Frequency Override (09/12/2024 11:47 AM EDT) Microbiology Frequency Override Test Comment urine culture 09/13/2024 7:32 AM EDT [facility] Urine Urine specimen from nephrostomy tube / Unknown Non-blood Collection / Unknown 09/12/2024 11:47 AM EDT 09/12/2024 12:12 PM EDT us Tobias Mckeon MD LAB MICROBIOLOGY - GENERAL O RDERABLES Final Result Performing Organization Address City/[facility] [place] [address] * IR Nephrostomy Tube Placement (09/12/2024 11:33 AM EDT) Anatomical Region Laterality Modality Body, Kidney X-Ray Angiograph y Impressions 09/12/2024 1:21 PM EDT Successful placement of 8 Liberian locking pigtails bilateral nephrostomy tubes. PLAN: Routine [...] consulted for bl nephrostomy tube placement. TECHNIQUE: Room Service Waiter: Tobias Mckeon MD Secondary Print Inspector: Amilcar Hawley MD Rad Dose: 73 mGy [...] The AccuStick sheath was removed. An 8 Liberian percutaneous nephrostomy tube was advanced over the [...] The AccuStick sheath was removed. An 8 Liberian percutaneous nephrostomy tube was advanced over the [...] IRconsulted for bl nephrostomy tube placement. TECHNIQUE: Room Service Waiter: Tobias Mckeon MD Secondary Print Inspector: Amilcar Hawley MD Rad Dose: 73 mGy Medications: IV conscious sedation with continuous physiologic monitoringprovided by a qualified healthcare professional using Versed 2 mg IV andFentanyl 100 mcg IV. 1% Lidocaine SQ. Antibiotics: Rocephin 1 g given intravenously perioperatively. Duration of Conscious Sedation: Time out: 6 close out: 11:30 Procedure: The patient was [...] [facility] Contrast instilled and fluoroscopic imaging confirmed placementwithin [...] ureter. TheAccuStick sheath was removed. An 8 Liberian percutaneous nephrostomy tubewas advanced over the wire [...] The AccuStick sheath was removed. An 8 Liberian percutaneousnephrostomy tube was advanced over the wire [...] COMPLICATION: No. IMPRESSION: Successful placement of 8 Liberian locking pigtails bilateral nephrostomytubes. PLAN: Routine sedation [...] LAB COAGULATION METHOD 09/12/2024 6:08 AM EDT [facility] INR 1.3(H) 0.9 - 1.1 LAB COAGULATION METHOD 09/12/2024 6:08 AM EDT [facility] Blood Venous blood specimen / Unknown Venipuncture / Unknown 09/12/2024 4:39 AM EDT 09/12/2024 4:47 AM EDT Narrative [facility] - 09/12/2024 6:08 AM EDT OPTIMAL INR RANGES FOR PATIENT ON ORAL ANTICOAGULANT THERAPY Prevention of venous thromboembolism INR 2.0 to 3.0 In patients with heart disease: Atrial fibrillation INR 2.0 to 3.0 Valvular heart disease INR 2.0 to 3.0 Tissue heart valves INR 2.0 to 3.0 Mechanical prosthetic valves INR 2.5 to 3.5 Prevention of recurrent MO INR 2.5 to 3.5 us Pankaj Robles MD LAB BLOOD ORDERABLES Final Result [facility] [address] [place] [address] * Hepatitis C Antibody - ED (07/22/2024 7:54 PM EST) Hepatitis C Antibody Negative Negative 07/22/2024 9:11 PM EST [facility] Blood Venous blood specimen / Unknown Venipuncture / Unknown 07/22/2024 7:54 PM EST 07/22/2024 8:09 PM EST us Luz MCCABE LAB BLOOD ORDERABLES Missy sun Result [facility] [address] [place] [address] from Last 3 Months or Most Recently Relevant to Health Maintenance Insurance [facility] MEDICARE Advance Directives * Full Code (Latest [...] Patient has decision-making capacity? Yes Care Teams Shear Operator Automatic Relationship Specialty Start Date End Date Luis Hatfield MD [address] [place] [address] [facility] - General 07/24/24
--- OUTSIDE RECORDS SUMMARY | 2024-12-12 09:48 | XMS_ITS | Encounter Summary ---
Author Organization Healthcare Address [address] [place] [address] Care Team Providers Care Lab Assistant Name Role Phone Luis Hatfield MD Primary Care Provider [phone] Encounter Details Date Type Department Care Team (Late st Contact Info) Description 10/18/2024 Telephone [facility] [address] [place] [address] Ochoa Matias MD [address] [facility] [address] [place] [address] Social History Tobacco Use Types Packs/Day Years [...] any time in the past 12 m [facility], were you homeless or living in a assisted (including now)? 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 Pritchard. Leave vmail on his answer machine he will not be able to answer while he is with patients Best contact number and optimal time of day to reach caller: Juan Antonio [phone] Note: Please do not reply to this message. Follow-up communication and further actions as a result of this message need to be communicated with the patient directly, if the patient is not active onMyChart. If the patient is active on MyChart, they will receive notification of the communication/outcome via [email or web address]. documented in this encounter Plan of Treatment Upcoming Encounters Date Type Department Care Team (Late st Contact Info) Description 12/20/2024 9:00 AM EDT Appointment [facility] Interventional Radiology [address] [place] [address] 01/15/2025 4:30 PM EDT Office Visit [facility] [address] [place] [address] Ochoa Matias MD [address] [facility] [address] [place] [address] documented as of this encounter Visit Diagnoses [...] documented as of this encounter Care Teams Lab Assistant Relationship Specialty Start Date End Date Luis Hatfield MD [address] [place] [address] PCP - General 07/24/24 documented as of this encounter
--- OUTSIDE RECORDS SUMMARY | 2024-12-12 09:48 | XMS_ITS ---
Author Organization [facility] Address [address] [place] [address] Care Team Providers Care Multiple Spindle Screw Machine Operator Name Role Phone Luis Hatfield MD Primary Care Provider [phone] Active Problems Problem Noted Date Diagnosed Date [...]
--- OUTSIDE RECORDS SUMMARY | 2024-12-12 09:48 | XMS_ITS | Encounter Summary ---
Author Organization Healthcare Address [address] [place] [address] Care Team Providers Care Bathhouse Attendant Name Role Phone Luis Hatfield MD Primary Care Provider [phone] Encounter Details Date Type Department Care Team (Late st Contact Info) Description 08/19/2024 Lab Requisition [facility] [address] [place] [address] Ochoa Matias MD [address] [place] [address] Malignant neoplasm of bladder, unspecified (CMS/HCC) Social History Tobacco Use Types Packs/Day Years Used Date Smoking Tobacco: Every Day Cigarettes 0.5 25.5 Started: 2000 Smokeless Tobacco: Never Alcohol Use [...] any time in the past 12 m [facility], were you homeless or living in a [facility] (including now)? No 07/24/2024 CAGE ASSESSMENT Answer [...] drink first t kimberlyn in the morning (EYE-DIRECTOR WORK) to steady your nerves or to get [...] [facility] Inter[facility] Rad[facility] [address] [place] [address] 01/15/2025 4:30 PM EDT Office Visit [facility] [address] [place] [address] Ochoa Matias MD [address] [place] [address] documented as of this encounter Procedures Procedure [...] AM EDT [facility] Comment:[id number], A3 Test Result see scan 09/05/2024 7:35 AM EDT [facility] See Scanned Result 09/05/2024 7:35 AM EDT [facility] Tissue 07/23/2024 1:18 PM EST 08/19/2024 1:48 PM EDT us Ochoa Matias MD LAB REF LAB BLOOD AND FLUID ORD Final Result [facility] [address] [place] [address] * - AP Miscellaneous Test (07/23/2024 1:18 PM EST) Test name Viviane Keith 09/09/2024 8:04 AM EDT [facility] Comment:[id number], A3 Test Result see scan 09/09/2024 8:04 AM EDT [facility] See Scanned Result 09/09/2024 8:04 AM EDT [facility] Tissue 07/23/2024 1:18 PM EST 08/19/2024 1:48 PM EDT us Ochoa Matias MD LAB REF LAB BLOOD AND FLUID ORD Final Result [facility] [address] [place] [address] documented in this encounter Visit Diagnoses Diagnosis Malignant neoplasm of bladder, unspecified (CMS/HCC) documented in this encounter Additional Health Concerns Assessment Noted Time A Body Mass Index follow-up plan has been documented for the patient 07/25/2024 1:21 PM EST documented as of this encounter Care Teams Bathhouse Attendant Relationship Specialty Start Date End Date Luis Hatfield MD [facility] [place] [address] PCP - General 07/24/24 documented as of this encounter
--- OUTSIDE RECORDS SUMMARY | 2024-12-12 09:48 | XMS_ITS | Encounter Summary ---
Author Organization Healthcare Address [address] [place] [address] Care Team Providers Care Enterprise Resource Analyst Name Role Phone Luis Hatfield MD Primary Care Provider [phone] Encounter Details Date Type Department Care Team (Late st Contact Info) Description 11/01/2024 Telephone [facility] [address] [place] [address] Ochoa Matias MD [address] [facility] [address] [place] [address] Social History Tobacco Use Types Packs/Day Years [...] drink first t kimberlyn in the morning (EYE-FILE KEEPER) to steady your nerves or to get [...] will receive notification of the communication/outcome via [employer]. documented in this encounter Plan of Treatment Upcoming Encounters Date Type Department Care Team (Late st Contact Info) Description 12/20/2024 9:00 AM EDT Appointment [facility] Interventional Radiology [address] [place] [address] 01/15/2025 4:30 PM EDT Office Visit [facility] [address] [place] [address] Ochoa Matias MD [address] [facility] [address] [place] [address] documented as of this encounter Visit Diagnoses [...] documented as of this encounter Care Teams Enterprise Resource Analyst Relationship Specialty Start Date End Date Luis Hatfield MD [address] [place] [id number] PCP - General 07/24/24 documented as of this encounter
--- OUTSIDE RECORDS SUMMARY | 2024-12-12 09:49 | XMS_ITS | Encounter Summary ---
Author Organization Healthcare Address [address] [place] [address] Care Team Providers Care Heading Repairer Name Role Phone Luis Hatfield MD Primary Care Provider [phone] Encounter Details Date Type Department Care Team (Late st Contact Info) Description 12/02/2024 Telephone [facility] Interventional Radiology [address] [place] [address] Cecille Escobedo, RN [facility] INTERVENTIONAL RADIOLOGY Social History Tobacco Use Types Packs/Day Years [...] any time in the past 12 m [facility], were you homeless or [...] drink first t kimberlyn in the morning (EYE-PERFORMANCE TEST ARCHITECT) to steady your nerves or to get [...] as of this encounter Miscellaneous Notes * Nursing Note - Cecille Escobedo RN - 12/02/2024 11:07 AM EDT Images from the original note were not included. Vascular & Interventional Radiology Nurse Navigator Note Pt reached out to report a foul odor from her Left nephrostomy tube collection bag, first noticed last week. She denies fever or abdominal pain, but does report the urine in the left tube collection bag is darker than the urine in the right tube collection bag. I emphasized the importance of the patient contacting her local PCP to have the urine tested for infection. She will call them today. Upon chart review I noticed the patient was scheduled about 4 weeks later than the typical timeframe for routine PCNT changes. I explained we would need to move the exchange case to closer to 12 weeks. Message sent to IR scheduling team to reschedule for the next 1-2 weeks. documented in this encounter Plan of Treatment Upcoming Encounters Date Type Department Care Team (Late st Contact Info) Description 12/20/2024 9:00 AM EDT Appointment [facility] Inter[facility] Radiology [address] [place] [address] 01/15/2025 4:30 PM EDT Office Visit [facility] [address] [place] [address] Ochoa Matias MD [address] [facility] [address] [place] [address] documented as of this encounter Visit Diagnoses [...] documented as of this encounter Care Teams Heading Repairer Relationship Specialty Start Date End Date Luis Hatfield MD [address] [place] [id number] PCP - General 07/24/24 documented as of this encounter
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
[2024-12-12 10:00] LABS: Hematocrit 32.8 % (37.0-47.0); Hemoglobin 10.9 g/dL (12.2-16.2); Immature Granulocytes % 0.3 %; Mean Corpuscular HGB Conc 33.2 g/dL (31.8-35.4); Mean Corpuscular Hemoglobin 29.6 pg (27.0-31.2); Mean Corpuscular Volume 89.1 fl (81-99); Nucleated Red Blood Cells % 0 %; Platelet Count 318 K/mm3 (142-424); Red Blood Count 3.68 M/mm3 (4.20-5.40); Red Cell Distribution Width-SD 61.1 fL; White Blood Count 7.6 K/mm3 (4.8-10.8)
[2024-12-12 10:08] LABS: Albumin Level 4.3 g/dl (3.5-5.0); Chloride 99 mmol/L (98-107)
[2024-12-12 10:09] LABS: Potassium 3.9 mmoL/L (3.5-5.1); Sodium 134 mmol/L (136-145)
[2024-12-12 10:11] LABS: Alanine Aminotransferase 10 U/L (12-78); Albumin/Globulin Ratio 1.6 (1.1-1.8); Anion Gap 13.9 mEq/L (5-15); Aspartate Amino Transferase 28 U/L (14-36); Blood Urea Nitrogen 9 mg/dl (7-17); Carbon Dioxide 25 mmol/L (22.0-30.0); Creatinine,Serum 1.00 mg/dl (0.52-1.04); Estimated Glomerular Filt Rate 55 ml/min (>60); GFR (African American) 66 ML/MIN (>60); Globulin 2.7 g/dL (1.3-3.2); Total Protein,Serum 7.0 g/dl (6.3-8.2)
[2024-12-12 10:12] LABS: Alkaline Phosphatase 85 U/L (38-126); Bilirubin,Total 1.0 mg/dl (0.2-1.3); Calcium 9.5 mg/dl (8.4-10.2); Glucose 119 mg/dl (74-100)
[2024-12-12] MEDS: 0.9 % SODIUM CHLORIDE 100 ML IV (11:02)
[2024-12-12] MEDS: PROCHLORPERAZINE 10MG TABLET 10 MG PO (11:03)
[2024-12-12] MEDS: SODIUM CHLORIDE 0.9% IV (11:28)
[2024-12-12] MEDS: ENFORTUMAB VEDOTIN EJFV IV (11:28)
[2024-12-12 11:35] VITALS: BP 138/79; PULSE 93; RESP 16; O2SAT 96
[2024-12-12 11:50] VITALS: BP 145/65; PULSE 86; RESP 16
[2024-12-12 12:05] VITALS: BP 136/91; PULSE 90; RESP 17
[2024-12-12] MEDS: PEMBROLIZUMAB 200 MG in 0.9 % SODIUM CHLORIDE 50 ML 116 MG IV (12:09)
[2024-12-12 12:20] VITALS: BP 140/71; PULSE 87; RESP 16
[2024-12-12 12:35] VITALS: BP 125/73; PULSE 88; RESP 16
[2024-12-12 12:50] VITALS: BP 127/70; PULSE 93; RESP 16
== END 2024-12-12 13:05 | disposition home or self-care (01) ==
LOC: INF 09:43
PROVIDERS: PCP Family Medicine; Visit Provider Internal Medicine Medical Oncology
DX: Z51.11 Encounter for antineoplastic chemotherapy (principal); C67.9 Malignant neoplasm of bladder, unspecified
CPT/HCPCS: 80053; 85025; 96413; 96417; J9177; J9271; Q0164

== ENCOUNTER 2024-12-19 08:53 | Outpatient (CLI) | payer MEDICARE, SELFPAY ==
--- OUTSIDE RECORDS SUMMARY | 2024-12-12 10:38 | XMS_ITS | Continuity of Care Document ---
Author Organization [facility] Phone Care Team Providers Care Ore Miner Blasting Name Role Phone ELDA IQBAL Unavailable NO, [...] Description Effective Dates Offered Cessation Comment UpdatedBy [id number] Smoking Status Unknown If Ever Smoked SOCIAL [...] RADIATION Admission November 20, 2024 12:54:00 PM [facility] [address] [facility] [address] Discharge December 10, 2024 3:59:00 AM [facility] DISC HARGED TO HOME OR SELF CARE ENCOUNTER DIAGNOSES Notes information is not peter ilable. Code System Diagnosis Onset Date Diagnosis information is not available. 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 [id number] on December 12, 2024 2:38:17 PM [facility] CARE TEAM Care Ore Miner Blasting Role ELDA IQBAL Referring DEFINED NO Primary Care JAYASHREE SANCHEZ Admitting JAYASHREE SANCHEZ Primary Attending CARE TEAM CARE fixture fabricator repairer Role on Team Status Start Date End Date Update d By NO DEFINED PRIMARY C PCP normal November 07, 2024 6:09:13 PM [facility] December 10, 2024 3:59:00 AM [facility] [id number] on November 07, 2024 6:09:13 PM [facility] RASHEED Phan Referring normal November 07, 2024 6:09:13 PM [facility] December 10, 2024 3:59:00 AM [facility] [id number] on November 07, 2024 6:09:13 PM [facility] DANIEL GAO Attending normal November 07 025 6:09:13 PM [facility] December 10, 2024 3:59:00 AM [facility] [id number] on November 07, 2024 6:09:13 PM [facility] DANILE GAO Admitting normal November 07 025 6:09:13 PM [facility] December 10, 2024 3:59:00 AM [facility] [id number] on November 07, 2024 6:09:13 PM [facility]
[2024-12-19 09:02] VITALS: BMI 26.6
--- OUTSIDE RECORDS SUMMARY | 2024-12-19 09:05 | XMS_ITS | Encounter Summary ---
Author Organization Healthcare Address [address] [place] [address] Care Team Providers Care Steward/Stewardess Banquet Name Role Phone Luis Hatfield MD Primary Care Provider [phone] Reason for Visit * Reason Onset Date Comments [facility] [place] [facility] 10/24/2024 Encounter Details Date Type Department Care Team (Late st Contact Info) Description 10/24/2024 Telephone [facility] [address] [place] [address] Ochoa Matias MD [address] [place] [address] [facility] [place] [facility] Social History Tobacco Use Types Packs/Day Years [...] any time in the past 12 m [facility], were you homeless or living in a [...] drink first t kimberlyn in the morning (EYE-AUTOMOTIVE PARTS SPECIALIST) to steady your nerves or to [...] Appointment [facility] A Interventional Radiology [address] [place] [address] 01/15/2025 4:30 PM EDT Office Visit [facility] [address] [place] [address] Ochoa Matias MD [address] [place] [address] documented as of this encounter Visit Diagnoses [...] documented as of this encounter Care Teams Steward/Stewardess Banquet Relationship Specialty Start Date End Date Luis Hatfield MD [address] [place] [address] PCP - General 07/24/24 documented as of this encounter
--- OUTSIDE RECORDS SUMMARY | 2024-12-19 09:05 | XMS_ITS | Encounter Summary ---
Author Organization Healthcare Address [address] [place] [address] Care Team Providers Care Line Mover Name Role Phone Luis Hatfield MD Primary Care Provider [phone] Encounter Details Date Type Department Care Team (Late st Contact Info) Description 11/01/2024 Telephone [facility] [address] [place] [address] Ochoa Matias MD [address] [facility] [address] [place] [address] Social History Tobacco Use Types Packs/Day Years [...] time in the past 12 m [facility], were you homeless or living in a [...] drink first t kimberlyn in the morning (EYE-WATER SANDER) to steady your nerves or to get [...] will receive notification of the communication/outcome via [employer]. documented in this encounter Plan of Treatment Upcoming Encounters Date Type Department Care Team (Late st Contact Info) Description 12/20/2024 9:00 AM EDT Appointment [facility] Interventional Radiology [address] [place] [address] 01/15/2025 4:30 PM EDT Office Visit [facility] [address] [place] [address] Ochoa Matias MD [address] [facility] [address] [place] [address] documented as of this encounter Visit Diagnoses [...] documented as of this encounter Care Teams Line Mover Relationship Specialty Start Date End Date Luis Hatfield MD [address] [place] [id number] PCP - General 07/24/24 documented as of this encounter
--- OUTSIDE RECORDS SUMMARY | 2024-12-19 09:06 | XMS_ITS ---
Author Organization [facility] Address [address] [place] [address] Care Team Providers Care Mortgage Servicing Specialist Name Role Phone Luis Hatfield MD Primary Care Provider [phone] Active Problems Problem Noted Date Diagnosed Date [...]
--- OUTSIDE RECORDS SUMMARY | 2024-12-19 09:06 | XMS_ITS | Encounter Summary ---
Author Organization Healthcare Address [address] [place] [address] Care Team Providers Care Telecasting Technician Name Role Phone Luis Hatfield MD Primary Care Provider [phone] Reason for Visit * Reason Onset Date Comments [facility] 11/26/2024 Encounter Details Date Type Department Care Team ([facility] st Contact Info) Description 11/26/2024 Telephone [facility] [address] [place] [address] Ochoa Matias MD [address] [place] [address] [facility] Social History Tobacco Use Types Packs/Day Years [...] any time in the past 12 m [facility], were you homeless or living in [...] drink first t kimberlyn in the morning (EYE-BOILER FITTER) to steady your nerves or to get [...] EDT Appointment [facility] Inter[facility] Radiology [address] [place] [address] 01/15/2025 4:30 PM EDT Office Visit [facility] [address] [place] [address] Ochoa Matias MD [address] [facility] [address] [place] [address] documented as of this encounter Visit Diagnoses [...] documented as of this encounter Care Teams Telecasting Technician Relationship Specialty Start Date End Date Luis Hatfield MD [address] [facility] [address] [place] [address] PCP - General 07/24/24 documented as of this encounter
--- OUTSIDE RECORDS SUMMARY | 2024-12-19 09:06 | XMS_ITS | Encounter Summary ---
Author Organization Healthcare Address [address] [place] [address] Care Team Providers Care Detasseling Crew Supervisor Name Role Phone Luis Hatfield MD Primary Care Provider [phone] Encounter Details Date Type Department Care Team (Late st Contact Info) Description 12/02/2024 Telephone [facility] Interventional Radiology [address] [place] [address] Cecille Escobedo, RN [facility]ULAR [facility] INTERVENTIONAL RADIOLOGY [...] any time in the past 12 m [facility], were you homeless or living in a fpc (including now)? No 09/23/2024 CAGE ASSESSMENT Answer [...] drink first t kimberlyn in the morning (EYE-BLOCK FEEDER) to steady your nerves or to get [...] EDT Appointment [facility] Inter[facility]iology [address] [place] [address] 01/15/2025 4:30 PM EDT Office Visit [facility] [address] [place] [address] Ochoa Matias MD [address] [facility] [address] [place] [address] documented as of this encounter Visit Diagnoses [...] documented as of this encounter Care Teams Detasseling Crew Supervisor Relationship Specialty Start Date End Date Luis Hatfield MD [address] [place] [id number] PCP - General 07/24/24 documented as of this encounter
--- OUTSIDE RECORDS SUMMARY | 2024-12-19 09:06 | XMS_ITS | Encounter Summary ---
Author Organization Healthcare Address [address] [place] [address] Care Team Providers Care Hospital Housekeeper Name Role Phone Luis Hatfield MD Primary Care Provider [phone] Encounter Details Date Type Department Care Team (Late st Contact Info) Description 08/19/2024 Lab Requisition [facility] [address] [place] [address] Ochoa Matias MD [address] [place] [address] Malignant neoplasm of bladder, unspecified (CMS/HCC) Social [...] time in the past 12 m [facility], were you homeless or living in a detention (including now)? No 07/24/2024 CAGE ASSESSMENT Answer [...] drink first t kimberlyn in the morning (EYE-ELECTROMYOGRAPHIC TECHNICIAN) to steady your nerves or to get [...] [facility] Interventional Radiology [address] [place] [address] 01/15/2025 4:30 PM EDT Office Visit [facility] [address] [place] [address] Ochoa Matias MD [address] [place] [address] documented as of this encounter Procedures Procedure [...] name Selwyn Geller 09/05/2024 7:35 AM EDT [facility] Comment:[id number], A3 Test Result see scan 09/05/2024 7:35 AM EDT [facility] See Scanned Result 09/05/2024 7:35 AM EDT [facility] Tissue 07/23/2024 1:18 PM EST 08/19/2024 1:48 PM EDT us Ochoa Matias MD LAB REF LAB BLOOD AND FLUID ORD Final Result [facility] [address] [place] [address] * - AP Miscellaneous Test (07/23/2024 1:18 PM EST) Test name Viviane Keith 09/09/2024 8:04 AM EDT [facility] Comment:[id number], A3 Test Result see scan 09/09/2024 8:04 AM EDT [facility] See Scanned Result 09/09/2024 8:04 AM EDT [facility] Tissue 07/23/2024 1:18 PM EST 08/19/2024 1:48 PM EDT us Ochoa Matias MD LAB REF LAB BLOOD AND FLUID ORD Final Result [facility] [address] [place] [address] documented in this encounter Visit Diagnoses Diagnosis Malignant neoplasm of bladder, unspecified (CMS/HCC) documented in this encounter Additional Health Concerns Assessment Noted Time A Body Mass Index follow-up plan has been documented for the patient 07/25/2024 1:21 PM EST documented as of this encounter Care Teams Hospital Housekeeper Relationship Specialty Start Date End Date Luis Hatfield MD [facility] [place] [address] PCP - General 07/24/24 documented as of this encounter
--- OUTSIDE RECORDS SUMMARY | 2024-12-19 09:06 | XMS_ITS | Clinical Summary ---
Author Organization [facility] Address [address] [place] [address] Care Team Providers Care Help Desk Team Leader Name Role Phone Luis Hatfield MD Primary Care Provider [phone] Allergies Active Allergy Reactions Criticality Noted Date [...] Telephone [facility] Interventional Radiology [address] [place] [address] Cecille Escobedo RN 11/26/2024 Telephone [facility] [address] [place] [address] Ochoa Matias MD [facility] 11/01/2024 Telephone [facility] Mult[facility] Oncology [facility] [address] [place] [address] Ochoa Matias MD 10/24/2024 Telephone [facility] [address] [place] [address] Ochoa Matias MD [facility] 10/18/2024 Telephone [facility] [address] [place] [address] Ochoa Matias MD 10/09/2024 1:15 PM EDT Office Visit [facility] Mult[facility]isciplinary Oncology Clinic [address] [place] [address] Ochoa Matias MD Malignant neoplasm of urinary bladder, unspecified site (CMS/HCC) (Primary Dx) 10/09/2024 11:30 AM EDT Office Visit [facility] Vascular Interventional Radiology [address] [facility] [address] [place] [address] Kristen Bryant, CAR RECORD CLERK Malignant neoplasm of urinary bladder, unspecified site (CMS/HCC) (Primary Dx); Bilateral hydronephrosis 10/09/2024 Travel 09/25/2024 Telephone [facility] Multidisciplinary Oncology Clinic [address] Ochoa Matias MD [facility] 09/20/2024 8:53 PM EDT - 09/23/2024 3:28 PM EDT Hospital Encounter [facility] A Inpatient [facility] [address] Chavo Walden MD Micciche, MD Talisha Queen, MD Andrew Hung, Eleanor Mason MD Acute cystitis with hematuria (Primary Dx) Discharge Disposition: Home or Self Care 09/20/2024 Travel 09/20/2024 Orders Only External Location [address] Provider, External 09/20/2024 Orders Only External Location [address] Provider, External 09/20/2024 Orders Only External Location [address] Provider, External 09/20/2024 Orders Only External Location [address] [place] [address] Provider, External 09/20/2024 Orders Only External Location [address] [place] [address] Provider, External 09/20/2024 Orders Only External Location [address] [place] [address] Provider, External 09/20/2024 Orders Only External Location [address] [place] [id number] Provider, External 09/20/2024 Orders Only External Location [address] [place] [address] Provider, External 09/20/2024 Orders Only External Location [address] [place] [address] Provider, External 09/20/2024 Orders Only External Location [address] Provider, External from Last 3 Months Social History Tobacco Use Types Packs/Day Years Used Date Smoking Tobacco: Former Cigarettes 0.1 51.5 S tarted: 1973 Smokeless Tobacco: Never Tobacco [...] were you homeless or living in a intermediate (including now)? No 09/23/2024 CAGE ASSESSMENT Answer [...] drink first t kimberlyn in the morning (EYE-CHOCOLATE COATER) to steady your nerves or to get [...] Info) Description 12/20/2024 9:00 AM EDT Appointment [facility] Inter[facility] Radiology [address] [place] [address] 01/15/2025 4:30 PM EDT Office Visit [facility] [address] [place] [address] Ochoa Matias MD [address] [place] [phone] Health Maintenance Due Date Last Done Comments [facility]-Bone Density Scan 1955 [facility]-Medicare Annual Wellness (AWV) 1955 [facility]-Infant/Child/Adol SDOH Screenings 1955 AHT-[id number]-79 Vaccine (#1) 1959 [facility]-DTaP,Tdap,and Td Vaccines (1 [...] this topic Medical Devices Implanted Type Area Spray Drier Operator Helper Device Identifier Shelf Expiration Date Model / Serial / Lot Stent Ureteral Double Pigtail Pos 6fr 26cm - S. - [id number] Implanted:Qty: 1 on 07/23/2024 by Ochoa Matias MD at [facility] Stent N/A: [id number] 03/11/2026 [id number] / . / [id number] Procedures Procedure Name Priority Date/Time Associated Diagnosis Comments CYSTO- UROLOGY Routine 10/09/2024 1:43 PM EDT Malignant neoplasm of urinary bladder, unspecified site ([facility]/HCC) EXTRA TUBE LAVENDER TOP Routine 09/21/2024 4:17 [...] NEURO OUTSIDE IMAGES 09/20/2024 12:27 PM EDT HEPATITIS C ANTIBODY - ED [...] type: flexible Cystoscopy route: transurethral Cystoscopy location: [place] bladder Irrigation used: saline Position: supine Urethra [...] Hold for add-ons 09/21/2024 7:01 AM EDT [facility] Comment:Auto resulted. Blood Venous blood specimen / Unknown 09/21/2024 4:17 AM EDT 09/21/2024 4:17 AM EDT us Abhilash Woodall MD LAB BLOOD ORDERABLES Final Resul t [facility] [address] [place] [address] * Phosphorus (09/21/2024 3:59 AM EDT) Phosphorus, Plasma 3.3 2.5 - 4.5 mg/dL 09/21/2024 4:56 AM EDT [facility] Blood Venous blood specimen / Unknown Venipuncture / Unknown 09/21/2024 3:59 AM EDT 09/21/2024 4:24 AM EDT us Abhilash Woodall MD LAB BLOOD ORDERABLES Final Resul t Performing Organization Address [facility] Co de Phone Number [facility] [address] [place] [address] * (ABNORMAL) Magnesium, Plasma (09/21/2024 3:59 AM EDT) Only the most recent of2 resultswithin the time period is included. Magnesium, Plasma 2.6(H) 1.9 - 2.4 mg/dL 09/21/2024 4:56 AM EDT [facility] Blood Venous blood specimen / Unknown Venipuncture / Unknown 09/21/2024 3:59 AM EDT 09/21/2024 4:24 AM EDT us Abhilash Woodall MD LAB BLOOD ORDERABLES Final Resul t Performing Organization Address [facility] de Phone Number [facility] [address] [place] [address] * (ABNORMAL) Vitamin B12 (09/21/2024 3:59 AM EDT) Vitamin B12, Serum 1,924(H) 210 - 1,033 pg/mL 09/21/2024 5:11 AM EDT [facility] Blood Venous blood specimen / Unknown Venipuncture / Unknown 09/21/2024 3:59 AM EDT 09/21/2024 4:24 AM EDT us Abhilash Woodall MD LAB BLOOD ORDERABLES Final Resul t Performing Organization Address [facility] Co de Phone Number [facility] [address] [place] [address] * (ABNORMAL) Comprehensive metabolic panel (09/21/2024 3:59 AM EDT) Only the most recent of2 resultswithin the time period is included. Glucose, Plasma 123(H) 74 - 99 mg/dL 09/21/2024 4:56 AM EDT [facility] BUN, Plasma 25(H) 8 - 23 mg/dL 09/21/2024 4:56 AM EDT [facility] Creatinine, Plasma 1.25(H) 0.60 - 1.10 mg/dL 09/21/2024 4:56 AM EDT [facility] BUN/Creatinine Ratio 20 09/21/2024 4:56 AM EDT [facility] Sodium, Plasma 137 136 - 145 mmol/L 09/21/2024 4:56 AM EDT [facility] Potassium, Plasma 4.6 3.6 - 4.9 mmol/L 09/21/2024 4:56 AM EDT [facility] Chloride, Plasma 99 97 - 107 mmol/L 09/21/2024 4:56 AM EDT [facility] CO2, Plasma 25 22 - 29 mmol/L 09/21/2024 4:56 AM EDT [facility] Anion Gap 13 6 - 16 mmol/L 09/21/2024 4:56 AM EDT [facility] Total Calcium, Plasma 10.0 8.9 - 10.2 mg/dL 09/21/2024 4:56 AM EDT [facility] Total Protein 7.2 6.3 - 7.9 g/dL 09/21/2024 4:56 AM EDT [facility] Albumin, Plasma 3.7 3.5 - 5.2 g/dL 09/21/2024 4:56 AM EDT [facility] AST, Plasma 16 10 - 35 U/L 09/21/2024 4:56 AM EDT [facility] ALT, Plasma 8(L) 10 - 35 U/L 09/21/2024 4:56 AM EDT [facility] Alkaline Phosphatase, Plasma 88 46 - 142 U/L 09/21/2024 4:56 AM EDT [facility] Total Bilirubin, Plasma 0.3 0.2 - 1.1 mg/dL 09/21/2024 4:56 AM EDT [facility] eGFRcr 46.5 mL/min/1.7 3m*2 09/21/2024 4:56 AM EDT [facility] Comment:Reported eGFRcr in m L/min/1.73m2 is based the CKD-EPI 2020 equation that does not use a race coefficient. Blood Venous blood specimen / Unknown Venipuncture / Unknown 09/21/2024 3:59 AM EDT 09/21/2024 4:24 AM EDT Abhilash Woodall MD LAB BLOOD ORDERABLES Final Resul t Performing Organization Address City/[facility]/ZIP Co de Phone Number [facility] [address] [place] [id number] * Multi Drug Resistance Test (09/21/2024 2:33 AM EDT) Culture No growth at day 1 09/21/2024 11:59 PM EDT [facility] Swab (Nares and Chantell Rectal) Non-blood Collection / Unknown 09/21/2024 2:33 AM EDT 09/21/2024 3:40 AM EDT Abhilash Woodall MD LAB MICROBIOLOGY - GENERAL ORDER GURWINDER Final Result Performing Organization Address [facility] [place] [address] * Beta Glucan (Fungitel), Serum (09/21/2024 12:47 AM EDT) Beta Glucan (Fungitell) <31 <80 pg/mL 09/24/2024 4:05 PM EDT [facility] (MICHAEL) Comment: Interpretation: The Fungitell assay does not detect certain fungal species such as the genus Cryptococcus (Taina et al. 1991) which produces very low levels of (1-3)-Hlkb-W-Bclngg. The assay also does not detect the Zygomycetes such as Absidia, Mucor and Rhizopus (Lore et al. 1994) which are not known to produce (1-3)-Cmsy-V-Tdueuk. In addition, the yeast phase of Blastomyces dermatitidis produces little (1-3)-Jtqn-X-Wvthse and may not be detected by the [...] characteristics for these modifications were determined by [employer]. If sample result is greater than 500 pg/mL, physician may order a titer of the sample. Please contact [employer] if you would like to order a retest of this sample to obtain an actual value. Samples are held for 1 week after initial testing date. Testing Performed at: [facility] [address] [place] [address], [address] [place] [address] Button Riveter: Jorge Villegas, PhD BCLRoxane ([facility]) CLIA # [id number] FLAG Interpretation: A = Abnormal, H = High, L = Low Blood Venous blood specimen / Unknown Venipuncture / Unknown 09/21/2024 12:47 AM EDT 09/21/2024 12:57 AM EDT Narrative [facility] ([facility]) - 09/24/2024 4:05 PM EDT Release to patient in [facility]->Immediate Abhilash Woodall MD LAB BLOOD ORDERABLES Final Resul t [facility] ([facility]EL) * Blood Culture (Aerobic/Anaerobet Set) (09/20/2024 11:13 PM EDT) Only the most recent of2 resultswithin the time period is included. Culture No growth at day 5 09/26/2024 12:02 AM EDT [facility] Blood Venous blood specimen / Unknown Venipuncture / Unknown 09/20/2024 11:13 PM EDT 09/20/2024 11:35 PM EDT us Chavo Walden MD LAB MICROBIOLOGY - GENERAL OR DERABLES Final Result Performing Organization Address [facility] Co de Phone Number [facility] [address] [place] [address] * SEND CLARISSA MESSAGE (09/20/2024 10:40 PM EDT) Urine Urine specimen from nephrostomy tube / Unknown Non-blood Collection / Unknown 09/20/2024 10:40 PM EDT 09/20/2024 10:57 PM EDT us Chavo Walden MD LAB URINE ORDERABLES Final Re sult Performing Organization Address [facility] de Phone Number [facility] [address] [place] [address] * Urine Stafford Panel (09/20/2024 10:40 PM EDT) Extra Sent for Culture 09/21/2024 12:02 AM EDT [facility] Urine Urine specimen from nephrostomy tube / Unknown Non-blood Collection / Unknown 09/20/2024 10:40 PM EDT 09/20/2024 10:57 PM EDT us Chavo Walden MD LAB URINE ORDERABLES Final Re sult Performing Organization Address [facility] de Phone Number [facility] [address] [place] [address] * Urinalysis Microscopic Examination (09/20/2024 10:40 PM EDT) Only the most recent of2 resultswithin the time period is included. Urine Urine specimen from nephrostomy tube / Unknown Non-blood Collection / Unknown 09/20/2024 10:40 PM EDT 09/20/2024 10:43 PM EDT us Chavo Walden MD LAB URINE ORDERABLES Final Re sult Performing Organization Address [facility] Co de Phone Number [facility] [address] [place] [address] * (ABNORMAL) Urinalysis with reflex microscopic (Culture NOT Included) (09/20/2024 10:40 PM EDT) Only the most recent of2 resultswithin the time period is included. Color, Urine Yellow LAB URINALYSIS - AUTOMATED METHOD 09/20/2024 11:31 PM EDT [facility] Clarity, Urine Cloudy LAB URINALYSIS - AUTOMATED METHOD 09/20/2024 11:31 PM EDT [facility] Spec [place], Urine 1.021 1.005 - 1.030 LAB URINALYSIS - AUTOMATED METHOD 09/20/2024 11:31 PM EDT [facility] pH, Urine 6.5 5.0 - 8.0 LAB URINALYSIS - AUTOMATED METHOD 09/20/2024 11:31 PM EDT [facility] Protein, Urine >=300(A) Negative mg/dL LAB URINALYSIS - AUTOMATED METHOD 09/20/2024 11:31 PM EDT [facility] Glucose, Urine Negative Negative mg/dL LAB URINALYSIS - AUTOMATED METHOD 09/20/2024 11:31 PM EDT [facility] Ketones, Urine Negative Negative mg/dL LAB URINALYSIS - AUTOMATED METHOD 09/20/2024 11:31 PM EDT [facility] Blood, Urine Large(A) Negative LAB URINALYSIS - AUTOMATED METHOD 09/20/2024 11:31 PM EDT [facility] Bilirubin, Urine Negative Negative LAB URINALYSIS - AUTOMATED METHOD 09/20/2024 11:31 PM EDT [facility] Urobilinogen, Urine 0.2 0.2 to 1.0 mg/dL LAB URINALYSIS - AUTOMATED METHOD 09/20/2024 11:31 PM EDT [facility] Leukocytes, Urine Moderate(A) Negative LAB URINALYSIS - AUTOMATED METHOD 09/20/2024 11:31 PM EDT [facility] Nitrite, Urine Negative Negative LAB URINALYSIS - AUTOMATED METHOD 09/20/2024 11:31 PM EDT [facility] RBC, Urine >50(A) 0 to 3 /HPF LAB URINALYSIS - AUTOMATED METHOD 09/20/2024 11:31 PM EDT [facility] Comment:This result was prev iously suppressed from the chart. WBC, Urine >50(A) 0 to 5 /HPF LAB URINALYSIS - AUTOMATED METHOD 09/20/2024 11:31 PM EDT [facility] Comment:This result was prev iously suppressed from the chart. Squamous Epithelial Cells 0 - 2 0 to 5 /HPF LAB URINALYSIS - AUTOMATED METHOD 09/20/2024 11:31 PM EDT [facility] Comment:This result was prev iously suppressed from the chart. Hyaline Casts 11 - 20(A) 0 to 5 /LPF LAB URINALYSIS - AUTOMATED METHOD 09/20/2024 11:31 PM EDT [facility] Comment:This result was prev iously suppressed from the chart. Bacteria, Urine Present Negative LAB URINALYSIS - AUTOMATED METHOD 09/20/2024 11:31 PM EDT [facility] Comment:This result was prev iously suppressed from the chart. Yeast (Budding and/or Pseudohyphae) Present(A) Absent LAB URINALYSIS - AUTOMATED METHOD 09/20/2024 11:31 PM EDT [facility] Comment:This result was prev iously suppressed from the chart. Urine Urine specimen from nephrostomy tube / Unknown Non-blood Collection / Unknown 09/20/2024 10:40 PM EDT 09/20/2024 10:43 PM EDT us Chavo Walden MD LAB URINE ORDERABLES Final Re sult [facility] [address] [place] [address] * (ABNORMAL) Urine Culture (09/20/2024 10:40 PM EDT) Culture 1,000 - 10,000 CFU/mL Staphylococcus coagulase negative(A) 09/25/2024 11:49 AM EDT [facility] Comment:Edited result: Previ ously reported as Gram positive cocci on 09/21/2024 at 2221 EDT. Culture 1,000 - 10,000 CFU/mL Clavispora lusitaniae (formerly Elsa lusitaniae)(A) 09/25/2024 11:49 AM EDT [facility] Comment: This isolate has been identified using the FDA Approved [employer] System Contact Microbiology (32776) within 24 hours if susceptibility required. The [...] MICROBIOLOGY - GENERAL OR DERABLES Final Result [facility] [address] [place] [address] * (ABNORMAL) CBC w/diff (09/20/2024 8:52 PM EDT) WBC Count 14.96(H) 3.70 - 10.30 10*3/uL LAB HEMATOLOGY METHOD 09/20/2024 8:55 PM EDT [facility] RBC Count 3.50(L) 3.90 - 5.20 10*6/uL LAB HEMATOLOGY METHOD 09/20/2024 8:55 PM EDT [facility] HGB 10.1(L) 11.2 - 15.7 g/dL LAB HEMATOLOGY METHOD 09/20/2024 8:55 PM EDT [facility] HCT 30.2(L) 34.0 - 45.0 % LAB HEMATOLOGY METHOD 09/20/2024 8:55 PM EDT [facility] Platelet Count 513(H) 155 - 369 10*3/uL LAB HEMATOLOGY METHOD 09/20/2024 8:55 PM EDT [facility] MCV 86 79 - 98 fL LAB HEMATOLOGY METHOD 09/20/2024 8:55 PM EDT [facility] MCH 28.9 26.0 - 32.0 pg LAB HEMATOLOGY METHOD 09/20/2024 8:55 PM EDT [facility] MCHC 33.4 30.7 - 35.5 g/dL LAB HEMATOLOGY METHOD 09/20/2024 8:55 PM EDT [facility] RDW 14.3 11.5 - 14.5 % LAB HEMATOLOGY METHOD 09/20/2024 8:55 PM EDT [facility] MPV 8.1(L) 8.8 - 12.5 fL LAB HEMATOLOGY METHOD 09/20/2024 8:55 PM EDT [facility] nRBC 0.0 <=0.0 per 100 WBCs LAB HEMATOLOGY METHOD 09/20/2024 8:55 PM EDT [facility] Differential Type Automated LAB HEMATOLOGY METHOD 09/20/2024 8:55 PM EDT [facility] Neutrophils % 76 % LAB HEMATOLOGY METHOD 09/20/2024 8:55 PM EDT [facility] Lymphocytes % 15 % LAB HEMATOLOGY METHOD 09/20/2024 8:55 PM EDT [facility] Monocytes % 7 % LAB HEMATOLOGY METHOD 09/20/2024 8:55 PM EDT [facility] Eosinophils % 1 % LAB HEMATOLOGY METHOD 09/20/2024 8:55 PM EDT [facility] Basophils % 0 % LAB HEMATOLOGY METHOD 09/20/2024 8:55 PM EDT [facility] Immature Granulocytes % 1 % LAB HEMATOLOGY METHOD 09/20/2024 8:55 PM EDT [facility] Neutrophils Absolute 11.29(H) 1.60 - 6.10 10*3/uL LAB HEMATOLOGY METHOD 09/20/2024 8:55 PM EDT [facility] Lymphocytes Absolute 2.27 1.20 - 3.90 10*3/uL LAB HEMATOLOGY METHOD 09/20/2024 8:55 PM EDT [facility] Monocytes Absolute 1.05(H) 0.30 - 0.90 10*3/uL LAB HEMATOLOGY METHOD 09/20/2024 8:55 PM EDT [facility] Eosinophils Absolute 0.18 0.00 - 0.50 10*3/uL LAB HEMATOLOGY METHOD 09/20/2024 8:55 PM EDT [facility] Basophils Absolute 0.06 0.00 - 0.10 10*3/uL LAB HEMATOLOGY METHOD 09/20/2024 8:55 PM EDT [facility] Immature Granulocytes Absolute 0.11(H) 0.00 - 0.06 10*3/uL LAB HEMATOLOGY METHOD 09/20/2024 8:55 PM EDT [facility] Blood Venous blood specimen / Unknown Venipuncture / Unknown 09/20/2024 8:52 PM EDT 09/20/2024 8:53 PM EDT Narrative [facility] - 09/20/2024 8:55 PM EDT Therapeutic decision making should be based on absolute values, rather than percentages. us Sheree Augustine MD LAB BLOOD ORDERABLES Final Resu lt Performing Organization Address [facility]/ZIP Co de Phone Number [facility] [address] [place] [address] * Lipase (09/20/2024 8:52 PM EDT) Lipase, Plasma 42 19 - 63 U/L 09/20/2024 9:13 PM EDT [facility] Blood Venous blood specimen / Unknown Venipuncture / Unknown 09/20/2024 8:52 PM EDT 09/20/2024 8:53 PM EDT Sheree Augustine MD LAB BLOOD ORDERABLES Final Resu lt Performing Organization Address [facility] Co de Phone Number [facility] [address] [place] [address] * CT THORACIC OUTSIDE IMAGES (09/20/2024 12:35 [...] Provider IMG CT PROCEDURES Final Result * Hepatitis C Antibody - ED (07/22/2024 7:54 PM EST) Hepatitis C Antibody Negative Negative 07/22/2024 9:11 PM EST [facility] Blood Venous blood specimen / Unknown Venipuncture / Unknown 07/22/2024 7:54 PM EST 07/22/2024 8:09 PM EST us Luz MCCABE LAB BLOOD ORDERABLES Missy l Result [facility] [address] [place] [address] from Last 3 Months or Most Recently Relevant to Health Maintenance Insurance [facility] MEDICARE Advance Directives * Full Code (Latest [...] Patient has decision-making capacity? Yes Care Teams Help Desk Team Leader Relationship Specialty Start Date End Date Luis Hatfield MD [address] [phone] [facility] - General 07/24/24
[2024-12-19 09:17] LABS: Hematocrit 35.0 % (37.0-47.0); Hemoglobin 11.8 g/dL (12.2-16.2); Immature Granulocytes % 0.4 %; Mean Corpuscular HGB Conc 33.7 g/dL (31.8-35.4); Mean Corpuscular Hemoglobin 29.6 pg (27.0-31.2); Mean Corpuscular Volume 87.9 fl (81-99); Nucleated Red Blood Cells % 0 %; Platelet Count 264 K/mm3 (142-424); Red Blood Count 3.98 M/mm3 (4.20-5.40); Red Cell Distribution Width-SD 55.6 fL; White Blood Count 8.1 K/mm3 (4.8-10.8)
[2024-12-19 09:30] LABS: Alanine Aminotransferase 12 U/L (12-78); Albumin Level 4.1 g/dl (3.5-5.0); Albumin/Globulin Ratio 1.6 (1.1-1.8); Alkaline Phosphatase 75 U/L (38-126); Anion Gap 13.7 mEq/L (5-15); Aspartate Amino Transferase 27 U/L (14-36); Bilirubin,Total 1.3 mg/dl (0.2-1.3); Blood Urea Nitrogen 16 mg/dl (7-17); Calcium 9.4 mg/dl (8.4-10.2); Carbon Dioxide 29 mmol/L (22.0-30.0); Chloride 96 mmol/L (98-107); Creatinine Clearance Estimated 55 mL/min (50-200); Creatinine,Serum 0.80 mg/dl (0.52-1.04); Estimated Glomerular Filt Rate 71 ml/min (>60); GFR (African American) 86 ML/MIN (>60); Globulin 2.5 g/dL (1.3-3.2); Glucose 102 mg/dl (74-100); Potassium 3.7 mmoL/L (3.5-5.1); Sodium 135 mmol/L (136-145); Total Protein,Serum 6.6 g/dl (6.3-8.2)
[2024-12-19] MEDS: PROCHLORPERAZINE 10MG TABLET 10 MG PO (09:36)
[2024-12-19] MEDS: SODIUM CHLORIDE 0.9% IV (09:56)
[2024-12-19] MEDS: ENFORTUMAB VEDOTIN EJFV IV (09:56)
[2024-12-19 10:00] LABS: Thyroid Stimulating Hormone 0.63 uIU/mL (0.465-4.68)
[2024-12-19 10:05] VITALS: BP 116/58; PULSE 68; RESP 18; TEMP 36.8; O2SAT 95
[2024-12-19 11:00] VITALS: BP 130/65; PULSE 71; RESP 18; O2SAT 96
== END 2024-12-19 11:00 | disposition home or self-care (01) ==
LOC: INF 09:02
PROVIDERS: PCP Family Medicine; Visit Provider Internal Medicine Medical Oncology
DX: Z51.11 Encounter for antineoplastic chemotherapy (principal); C67.9 Malignant neoplasm of bladder, unspecified
CPT/HCPCS: 80053; 84443; 85025; 96413; J9177; Q0164

== ENCOUNTER 2024-12-27 09:45 | Outpatient (CLI) | payer MEDICARE, SELFPAY ==
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
--- OUTSIDE RECORDS SUMMARY | 2024-12-20 07:18 | XMS_ITS | Encounter Summary ---
Author Organization [facility] Address [address] [place] [address] Care Team Providers Care Infection Prevention Coordinator Name Role Phone Luis Hatfield MD Primary Care Provider [phone] Reason for Referral * Imaging (Routine) - Closed Specialty Diagnoses / Procedures Referred By Stephen parks Referred To Contact Radiology Diagnoses Malignant neoplasm of urinary bladder, unspecified site (CMS/HCC) Procedures IR Nephrostomy Tube Exchange Kristen Bryant APRN [address] [place] [address] Phone: tel: fax: Referral ID Status Reason Start Date Expiration Date Visits Re quested Visits Authorized [id number] Closed 10/09/2024 04/10/2026 1 1 Reason for Visit * Imaging (Routine) - Closed Specialty Diagnoses / Procedures Referred By Stephen parks Referred To Contact Radiology Diagnoses Malignant neoplasm of urinary bladder, unspecified site (CMS/HCC) Procedures IR Nephrostomy Tube Exchange Kristen Bryant APRN [address] [place] [address] Phone: tel: fax: Referral ID Status Reason Start Date Expiration Date Visits Re quested Visits Authorized [id number] Closed 10/09/2024 04/10/2026 1 1 Encounter Details Date Type Department Care Team (Latest Contact Info) Description 12/20/2024 7:18 AM EDT - 12/20/2024 11:59 PM EDT Hospital Encounter [facility] Interventional Radiology [address] [place] [address] AidaMihirLiliana Malignant neoplasm of urinary bladder, unspecified [...] time in the past [address] [facility], were you homeless or living in [...] drink first t kimberlyn in the morning (EYE-IT APPLICATION ARCHITECT) to steady your nerves or to get rid of a hangover? 0 09/11/2024 CAGE Questionnaire Score 0 025 Utilities Answer Date Recorded In the past 12 months has th [employer], gas, oil, or water company threatened to [...] call: Vascular & Interventional Radiology Clinic at [phone] Monday - Monday 8:00 AM to 4:30 PM After hours, weekends, and holidays please call [phone] and ask for the Interventional Radiology provider/Resident on-call For Emergencies please go to the nearest Emergency Room or dial 911. Intervention Radiology Appointments: If you need to reschedule a procedure, please call our Schedulers at [phone], option 4. If you need to schedule or reschedule a clinic appointment, please call [phone]. [facility] Vascular and Interventional Radiology Clinic [address], [address] [place] [address] documented in this encounter Medications at Time [...] from the original note were not included. [id number] Percutaneous Nephrostomy You had a procedure called [...] and warm water or an alcohol-based hand chrome cleaner ?? Disposable medical gloves - they [...] 4. Wipe the skin gently in a [place]. Move away from the drain tube in [...] hands with soap & water or hand chrome cleaner and put on a new pair [...] hands with soap and water or hand chrome cleaner. They can also put on a [...] syringe to the needleless port with a pczx-yxf-aynpk motion. ? Flush the tube: Push on [...] your tube from getting blocked. * [facility] - Liliana Parra - 12/20/2024 9:46 AM EDT Images from the original note were not included. [id number] Discharge Instructions for Percutaneous Nephrostomy You had [...] symptoms Last Reviewed Date: 2022 00:00:00 ?? [id number] The [employer]. All rights reserved. This information is not intended as a substitute for professional medical care. Always follow your healthcare professional's instructions. * Post-Procedure Note - Sundeep Bowman MD - 12/20/2024 9:00 AM EDT Vascular and Interventional Radiology Brief Postprocedure Note Attending: Dr. Rodriguze Primary: Dr. Bowman Pre-operative Diagnosis: Bilateral PCNT [...] been discussed with the patient and/or their sales representative livestock. All questions answered and they agree to [...] had enough tubes placed 09/12/2024 with 8 Citizen Of [place] bilaterally. Shedoes not report any symptoms or [...] 93%. Results Review {Vanishing Link Review Results :[id number] I have reviewed the latest lab and [...] [facility] [address] [place] [address] Ochoa Matias MD [address] [place] [address] documented as of this encounter Procedures Procedure [...] bilateral percutaneous nephrostomy tube exchange using 10 Citizen Of [place] locking pigtail drainage catheters. PLAN: Nephrostomy tube [...] for routine bilateral nephrostomy tube exchange. TECHNIQUE: Demolition Worker: Sundeep Bowman MD Supervising attending: Liang Rodriguez [...] antisepsis, followed by sterile barrier draping A autos disassembler film was performed to document the location [...] were no immediate complication. COMPARISON: None. FINDINGS: Capper Machine Operator images and nephrostograms demonstrate bilateral percutaneous nephrostomy tubes in expected location. COMPLICATION: No. Procedure Note Liang Rodriguez MD - 12/20/2024 CLINICAL INDICATION: 69-year-old female who presents for routine bilateral nephrostomy tubeexchange. TECHNIQUE: Demolition Worker: Sundeep Bowman MD Supervising attending: Liang Rodriguez [...] cutaneousantisepsis, followed by sterile barrier draping A autos disassembler film was performed to document the location [...] there were no immediatecomplication. COMPARISON: None. FINDINGS: Capper Machine Operator images and nephrostograms demonstrate bilateral percutaneousnephrostomy tubes [...] on 12/20/2024 10:50 AM Kristen Donovan Manny SHOT MAN IMG IR PROCEDURES Final Result documented in [...] documented as of this encounter Care Teams Infection Prevention Coordinator Relationship Specialty Start Date End Date Luis Hatfield MD [address] [place] [address] PCP - General 07/24/24 documented as of this encounter
--- OUTSIDE RECORDS SUMMARY | 2024-12-26 10:30 | XMS_ITS | Encounter Summary ---
Author Organization [facility] Address [address] [id number] Care Team Providers Care Software Quality Assurance Analyst Name Role Phone Luis Hatfield MD Primary Care Provider [phone] Reason for Visit * Reason Comments Seropositive rheumatoid arthritis 6 veronica h follow up Encounter Details Date Type Department Care Team (Latest Contact Info) Description 12/26/2024 10:30 AM EDT Office Visit [facility] RHEUMATOLOGY [address] [phone] Nguyen Romero APRN [address] [address] Seropositive rheumatoid arthritis (Primary Dx); Systemic lupus [...] DNA 13.0 (<4.0), Centromere and Chromatin normal, VEHICLE ASSEMBLER and SCL 70 normal, Christine normal, SSA and SSB normal, total bilirubin 1.4, Glucose 117, CMP was ok otherwise, CCP negative, CRP Normal, RF 110 (<14.0 normal), ESR normal, TSH normal * Medications/treatments/interventions tried include: Tylenol, meloxicam, Advil, CBD oil, Tumeric, Aspirin, Plaquenil, she has seen podiatry (Miky Steele DPM), she has seen supervisor painting shipyard (Dr. Jed Trevino), Ketamine, gabapentin, She has [...] lesion. She brought in medical records from [facility] for us to review. Subjective Review [...] DNA 13.0 (<4.0), Centromere and Chromatin normal, VEHICLE ASSEMBLER and SCL 70 normal, Christine normal, SSA and SSB normal, total bilirubin 1.4, Glucose 117, CMP was ok otherwise, CCP negative, CRP Normal, RF 110 (<14.0 normal), ESR normal, TSH normal * Medications/treatments/interventions tried include: Tylenol, meloxicam, Advil, CBD oil, Tumeric, Aspirin, Plaquenil, she has seen podiatry (Miky Steele DPM), she has seen supervisor painting shipyard (Dr. Jed Trevino), Ketamine, gabapentin, She has [...] 06/28/2025) for Dr. Wells. Nguyen Romero APRN [facility] [place] documented in this encounter Plan of Treatment Upcoming Encounters Date Type Department Care Team (Late st Contact Info) Description 07/09/2025 10:45 AM EST Office Visit [facility] RHEUMATOLOGY [address] [place] [phone] Vicente Wells DO [address] [phone] Scheduled Orders Name Type Priority Associated Diagnoses [...] anti-inflammatories documented in this encounter Care Teams Software Quality Assurance Analyst Relationship Specialty Start Date End Date Luis Hatfield MD [address] [facility] [address] [facility] [address] [place] [address] PCP - General Family Medicine 06/13/24 documented as of this encounter
[2024-12-27 09:50] LABS: Microscopic, Urine URINE MICROSCOPIC (MICROSCOPIC)
--- OUTSIDE RECORDS SUMMARY | 2024-12-27 09:52 | XMS_ITS | Encounter Summary ---
Author Organization Healthcare Address [address] [phone] Care Team Providers Care Riveting Machine Operator Tape Control Name Role Phone Luis Hatfield MD Primary Care Provider [phone] Encounter Details Date Type Department Care Team (Late st Contact Info) Description 08/19/2024 Lab Requisition [facility] [address] [place] [address] Ochoa Matias MD [address] [place] [phone] Malignant neoplasm of bladder, unspecified (CMS/HCC) Social [...] time in the [facility], were you homeless or living in a custodial (including now)? No 07/24/2024 CAGE ASSESSMENT Answer [...] drink first t kimberlyn in the morning (EYE-SUPERINTENDENT POLICE) to steady your nerves or to get [...] Description 01/15/2025 4:30 PM EDT Office Visit [facility] Multidisciplinary Oncology Clinic [address] [place] [address] Ochoa Matias MD [address] [place] [phone] documented as of this encounter Procedures Procedure [...] name Selwyn Geller 09/05/2024 7:35 AM EDT [facility] Comment:[id number], A3 Test Result see scan 09/05/2024 7:35 AM EDT [facility] See Scanned Result 09/05/2024 7:35 AM EDT [facility] Tissue 07/23/2024 1:18 PM EST 08/19/2024 1:48 PM EDT us Ochoa Matias MD LAB REF LAB BLOOD AND FLUID ORD Final Result [facility] [address] [place] [address] * - AP Miscellaneous Test (07/23/2024 1:18 PM EST) Test name Selwyn Viviane Espinosa 09/09/2024 8:04 AM EDT [facility] Comment:[id number], A3 Test Result see scan 09/09/2024 8:04 AM EDT [facility] See Scanned Result 09/09/2024 8:04 AM EDT [facility] Tissue 07/23/2024 1:18 PM EST 08/19/2024 1:48 PM EDT us Ochoa Matias MD LAB REF LAB BLOOD AND FLUID ORD Final Result [facility] [address] [place] [address] documented in this encounter Visit Diagnoses Diagnosis Malignant neoplasm of bladder, unspecified (CMS/HCC) documented in this encounter Additional Health Concerns Assessment Noted Time A Body Mass Index follow-up plan has been documented for the patient 07/25/2024 1:21 PM EST documented as of this encounter Care Teams Riveting Machine Operator Tape Control Relationship Specialty Start Date End Date Luis Hatfield MD [address] [place] [address] PCP - General 07/24/24 documented as of this encounter
--- OUTSIDE RECORDS SUMMARY | 2024-12-27 09:52 | XMS_ITS | Encounter Summary ---
Author Organization Healthcare Address [address] [place] [address] Care Team Providers Care Scientist Propagator Name Role Phone Luis Hatfield MD Primary Care Provider [phone] Reason for Visit * Reason Onset Date Comments [facility] 11/26/2024 Encounter Details Date Type Department Care Team (Late st Contact Info) Description 11/26/2024 Telephone [facility] [address] [place] [address] Ochoa Matias MD [address] [place] [phone] [facility] Social History Tobacco Use Types Packs/Day [...] first t kimberlyn in the morning (EYE-DIRECTOR [employer]IANCE MARKETING) to steady your nerves or to get [...] Description 01/15/2025 4:30 PM EDT Office Visit [facility] Multidisciplinary Oncology Clinic [address] [place] [address] Ochoa Matias MD [address] [facility] [address] [place] [address] documented as of this encounter Visit Diagnoses [...] documented as of this encounter Care Teams Scientist Propagator Relationship Specialty Start Date End Date Luis Hatfield MD [address] [address] PCP - General 07/24/24 documented as of this encounter
--- OUTSIDE RECORDS SUMMARY | 2024-12-27 09:52 | XMS_ITS | Encounter Summary ---
Author Organization [facility] Address [address] [id number] Care Team Providers Care Creative Arts Therapist Name Role Phone Luis Hatfield MD Primary Care Provider [phone] Encounter Details Date Type Department Care Team ([facility] Contact Info) Description 07/12/2024 Telephone [facility] RHEUMATOLOGY [address] [phone] Santiago Anders MD [address] [phone] Social History Tobacco Use Types Packs/Day Years Used Date Smoking Tobacco: Every Day Cigarettes Alcohol Use Standard Drinks/Week Comments Not Currently 0 (1 standard drink = 0.6 oz pur e alcohol) Comments Unknown Sex and Gender Information Value Date Recorded Sex Assigned at Not on file Legal Sex Female 11:56 AM EDT Gender Identity Not on file Sexual Orientation Not on file documented as of this encounter Plan of Treatment Upcoming Encounters Date Type Department Care Team (Late Contact Info) Description 07/09/2025 10:45 AM EST Office Visit [facility] RHEUMATOLOGY [address] [phone] Vicente Wells DO [address] [address] documented as of this encounter Visit Diagnoses Not on filedocumented in this encounter Care Teams Creative Arts Therapist Relationship Specialty Start Date End Date Luis Hatfield MD [address] [facility] [address] [place] [phone] PCP - General Family Medicine 06/13/24 documented as of this encounter
--- OUTSIDE RECORDS SUMMARY | 2024-12-27 09:52 | XMS_ITS | Clinical Summary ---
Author Organization [facility] Address [address] [place] [address] Care Team Providers Care Phone Triage Specialist Name Role Phone Luis Hatfield MD Primary Care Provider [phone] Allergies Active Allergy Reactions Criticality Noted Date Comments Codeine Nausea And Vomiting, Provider Review Needed High 12/05/2023 Medications Cholecalcifero l (VITAMIN D-3 PO) Take 1 capsule by mouth Daily. Active vitamin B-12 (CYANOCOBALAMI N) 500 MCG tablet Take 1 tablet by mouth Daily. Active ASPIRIN 81 PO Take 1 tablet by mouth Daily. Active Turmeric (QC Tumeric Complex) 500 MG capsule Take 1 capsule by mouth Daily. TAKE DIRECTED Active multivitamin with minerals (Hair Skin and Nails Formula) tablet tablet Take 1 tablet by mouth Daily. Active buPROPion (WELLBUTRIN) 75 MG tablet Take 1 tablet by mouth Every 12 (Twelve) Hours. 10/02/19 24 Active rosuvastatin (CRESTOR) 40 MG tablet Take 1 tablet by mouth Every Night. 11/02/19 24 Active irbesartan (AVAPRO) 300 MG tablet 1 tablet. Active prochlorperazi ne (COMPAZINE) 10 MG tablet Take 1 tablet by mouth Every 6 (Six) Hours As Needed for Nausea or Vomiting. 12/24/19 25 Active HYDROcodone-ac etaminophen (NORCO) 5-325 MG per tablet Take 1-2 tablets by mouth Every 8 (Eight) Hours As Needed. for pain Active hydroxychloroq uine (PLAQUENIL) 200 MG tablet Take 1 tablet by mouth 2 (Two) Times a Day. 60 tablet 5 12/27/19 25 Active gabapentin (NEURONTIN) 300 MG capsule Take 1 capsule by mouth Daily As Needed (pain). 12/04/19 24 025 Discontinued irbesartan (AVAPRO) 150 MG tablet Take 1 tablet by mouth Daily. 10/06/19 025 Discontinued(*T herapy completed) meloxicam (MOBIC) 15 MG tablet Take 1 tablet by mouth Daily As Needed for Mild Pain. 90 tablet 1 06/28/19 025 Discontinued hydroxychloroq uine (PLAQUENIL) 200 MG tablet Take 1 tablet by mouth 2 (Two) Times a Day. 60 tablet 5 06/28/19 025 Discontinued(Re order) Active Problems Problem Noted Date Diagnosed Date NSAID long-term use 12/26/2023 Assessment & Plan (12/26/2024 11:04 AM EDT): No longer taking NSAIDs due to CKD Assessment & Plan (06/28/2024 11:07 AM EST): * Meloxicam 15 mg PO once/day PRN for joint pain relief Do not take over-the counter anti-inflammatory medicines, such as ibuprofen or naproxen (Advil, Motrin, Aleve and others), as they may cause problems when combined with your prescription medications. In general, low dose daily aspirin for the treatment or prevention of heart disease or stroke is safe to take. Acetaminophen (Tylenol) is generally safe to take as directed for headaches, cramps or other aches and pains or fever reduction. Assessment & Plan (12/26/2023 11:54 AM EDT): * Meloxicam 15 mg PO once/day PRN for joint pain relief Do not take over-the counter anti-inflammatory medicines, such as ibuprofen or naproxen (Advil, Motrin, Aleve and others), as they may cause problems when combined with your prescription medications. In general, low dose daily aspirin for the treatment or prevention of heart disease or stroke is safe to take. Acetaminophen (Tylenol) is generally safe to take as directed for headaches, cramps or other aches and pains or fever reduction. High risk medication use 12/26/2023 Assessment & Plan (12/24/2024 10:18 AM EDT): * Plaquenil 200 mg PO BID for SLE/RA overlap * 1st prescribed 12/05/22 Patient's taking hydroxychloroquine should have an eye exam at least once/year to monitor for signs of medication toxicity Assessment & Plan (06/28/2024 11:07 AM EST): * Plaquenil 200 mg PO BID for SLE/RA overlap * 1st prescribed 12/05/22 Patient's taking hydroxychloroquine should have an eye exam at least once/year to monitor for signs of medication toxicity Assessment & Plan (12/26/2023 11:54 AM EDT): * Plaquenil 200 mg PO BID for SLE/RA overlap * 1st prescribed 12/05/22 Patient's taking hydroxychloroquine should have an eye exam at least once/year to monitor for signs of medication toxicity Osteoarthritis 12/25/2023 Assessment & Plan (12/24/2024 10:18 AM EDT): 1. Tylenol PRN is ok as directed 2. Continue/refill meloxicam 3. She has tried using CBD products 4. She has taken Tumeric 5. She has seen podiatry for her feet 6. She has taken gabapentin for neuropathic pain 7. She has seen pain management specialists 8. She has had back injections. Assessment & Plan (06/28/2024 11:07 AM EST): 1. Tylenol PRN is ok as directed 2. Continue/refill meloxicam 3. She has tried using CBD products 4. She has taken Tumeric 5. She has seen podiatry for her feet 6. She has taken gabapentin for neuropathic pain 7. She has seen pain management specialists 8. She has had back injections. Assessment & Plan (12/26/2023 12:02 PM EDT): 1. Tylenol PRN is ok as directed 2. Continue/refill meloxicam 3. She has tried using CBD products 4. She has taken Tumeric 5. She has seen podiatry for her feet 6. She has taken gabapentin for neuropathic pain 7. She has seen pain management specialists 8. She has had back injections. SLE (systemic lupus erythematosus) 12/25/2023 Assessment & Plan (12/24/2024 10:18 AM EDT): 1. Continue/refill hydroxychloroquine 2. Check labs Assessment & Plan (06/28/2024 11:07 AM EST): 1. Continue/refill hydroxychloroquine 2. Check labs Assessment & Plan (12/26/2023 11:54 AM EDT): 1. Continue/refill hydroxychloroquine 2. Check labs Seropositive rheumatoid arthritis 12/25/2023 Assessment & Plan (12/26/2024 11:04 AM EDT): * 11/04/22 Left knee x-rays showed mild degenerative changes * 11/04/22 right knee x-rays did not show any significant arthritic findings *11/04/22: CBC was fine, DS DNA 13.0 (<4.0), Centromere and Chromatin normal, BLENDER/BRAZE APPLICATOR and SCL 70 normal, Christine normal, SSA and SSB normal, total bilirubin 1.4, Glucose 117, CMP was ok otherwise, CCP negative, CRP Normal, RF 110 (<14.0 normal), ESR normal, TSH normal * Medications/treatments/interventions tried include: Tylenol, meloxicam, Advil, CBD oil, Tumeric, Aspirin, Plaquenil, she has seen podiatry (Miky Steele DPM), she has seen painting and coating worker (Dr. Jed Trevino), Ketamine, gabapentin, She has had back injections 1. Continue/refill hydroxychloroquine. Okay to continue while receiving chemotherapy. 2. Check labs 3. She is avoiding NSAIDs due to CKD. 4. We will have oncology manage bone density scan as patient is currently in chemotherapy. 5. Follow up in 6 months Assessment & Plan (06/28/2024 11:07 AM EST): * 11/04/22 Left knee x-rays showed mild degenerative changes * 11/04/22 right knee x-rays did not show any significant arthritic findings *11/04/22: CBC was fine, DS DNA 13.0 (<4.0), Centromere and Chromatin normal, BLENDER/BRAZE APPLICATOR and SCL 70 normal, Christine normal, SSA and SSB normal, total bilirubin 1.4, Glucose 117, CMP was ok otherwise, CCP negative, CRP Normal, RF 110 (<14.0 normal), ESR normal, TSH normal * Medications/treatments/interventions tried include: Tylenol, meloxicam, Advil, CBD oil, Tumeric, Aspirin, Plaquenil, she has seen podiatry (Miky Steele DPM), she has seen painting and coating worker (Dr. Jed Trevino), Ketamine, gabapentin, She has had back injections 1. Continue/refill hydroxychloroquine 2. Check labs 3. Continue/refill meloxicam PRN 4. We gave her a handout on rheumatoid arthritis to take home and review 5. Follow up in 6 months Assessment & Plan (12/26/2023 12:11 PM EDT): * 11/04/22 Left knee x-rays showed mild degenerative changes * 11/04/22 right knee x-rays did not show any significant arthritic findings *11/04/22: CBC was fine, DS DNA 13.0 (<4.0), Centromere and Chromatin normal, BLENDER/BRAZE APPLICATOR and SCL 70 normal, Christine normal, SSA and SSB normal, total bilirubin 1.4, Glucose 117, CMP was ok otherwise, CCP negative, CRP Normal, RF 110 (<14.0 normal), ESR normal, TSH normal * Medications/treatments/interventions tried include: Tylenol, meloxicam, Advil, CBD oil, Tumeric, Aspirin, Plaquenil, she has seen podiatry (Miky Steele DPM), she has seen painting and coating worker (Dr. Jed Trevino), Ketamine, gabapentin, She has had back injections 1. Continue/refill hydroxychloroquine 2. Check labs 3. Continue/refill meloxicam PRN 4. We gave her a handout on rheumatoid arthritis to take home and review 5. Follow up in 4-6 months Resolved Problems Problem Noted Date Diagnosed Date Resolved Date Rheumatoid arthritis 12/25/2023 025 Encounters Date Type Department Care Team Description 12/26/2024 10:30 AM EDT Office Visit [facility] [address] [address] Nguyen Romero APRN Seropositive rheumatoid arthritis (Primary Dx); Systemic lupus erythematosus, unspecified SLE type, unspecified organ involvement status; High risk medication use; Primary osteoarthritis involving multiple joints; NSAID long-term use 12/26/2024 Results Follow-Up [facility] [address] [address] Vicente Wells, 12/26/2024 Results Follow-Up [facility] [address] [address] Vicente Wells, 12/26/2024 Travel from Last 3 Months Family History Medical History Relation Name Comments Coronary artery disease Father Heart attack Father Heart disease Father Diabetes Mother Heart attack Mother Other Mother CARDIOVASCULAR DISEASE Arthritis Sister Stroke Sister Diabetes Son Relation Name Status Comments Father Mother Sister Son Social History Tobacco Use Types Packs/Day Years [...] on file Sexual Orientation Not on file Last Filed Vital Signs Vital Sign Reading Time Taken Comments Blood Pressure 122/60 12/26/2024 10:32 AM EDT Pulse 95 12/26/2024 10:32 AM EDT Temperature 36.2 C (97.2 F) 06/28/2024 10:27 AM EST Respiratory Rate - - Oxygen Saturation - - Inhaled Oxygen Concentration - - Weight 63.7 kg (140 lb 8 oz) 12/26/2024 10:32 AM EDT Height 157.5 cm (5' 2 ) 12/26/2024 10:32 AM EDT Body Mass Index 25.7 12/26/2024 10:32 AM EDT Plan of Treatment Upcoming Encounters Date Type Department Care Team (Late st Contact Info) Description 07/09/2025 10:45 AM EST Office Visit [facility] [address] [place] [address] Vicente Wells DO [address] [facility] [address] [place] [address] Health Maintenance Due Date Last Done Comments DXA SCAN 1954 MAMMOGRAM 1994 COLOGUARD 1999 COLON CANCER SCREENING 5 YEA R SIGMOIDOSCOPY 1999 CT COLONOGRAPHY 1999 FECAL OCCULT BLOOD TEST 1999 FIT Testing (1 year) 1999 TDAP/TD VACCINES (2 - Tdap) 08/15/2006 08/15/1996 ZOSTER VACCINE (2 of 2) 04/16/2020 02/20/2020 ANNUAL WELLNESS VISIT 10/31/2023 COVID-19 Vaccine (1 - season) 2024 INFLUENZA VACCINE 03/12/2025 Pneumococcal Vaccine 50+ (2 of 2 - PCV) 04/10/2025 1 COLONOSCOPY 07/16/2030 07/16/2020, 01/24/2014 COLORECTAL CANCER SCREENING 07/16/2030 HEPATITIS C SCREENING Completed 07/22/2024 Procedures Procedure Name Priority Date/Time Associated Diagnosis Comments SCANNED - LABS 12/12/2024 SCANNED - LABS 11/07/2024 SCANNED - LABS 10/31/2024 SCANNED - IMAGING 10/31/2024 SCANNED - LABS 10/17/2024 SCANNED - LABS 10/10/2024 from Last 3 Months Results * LABS SCANNED (12/12/2024) Only the most recent of5 resultswithin the time period is included. Vicente Wells DO LAB BLOOD ORDERABLES F inal Result * IMAGING SCANNED (10/31/2024) Anatomical Region Laterality Modality Radiographic Minnie ging Vicente Wells DO IMG DIAGNOSTIC IMAGING ORDERABLES Final Result from Last 3 Months Insurance [employer] P[employer] Care Teams Phone Triage Specialist Relationship Specialty Start Date End Date Luis Hatfield MD [address] [facility] [address] [facility] [address] [place] [id number] PCP - General Family Medicine 06/13/24
--- OUTSIDE RECORDS SUMMARY | 2024-12-27 09:52 | XMS_ITS | Encounter Summary ---
Author Organization Healthcare Address [address] [place] [address] Care Team Providers Care Logistics Account Manager Name Role Phone Luis Hatfield MD Primary Care Provider [phone] Encounter Details Date Type Department Care Team (Late st Contact Info) Description 12/02/2024 Telephone [facility] Interventional Radiology [address] [place] [address] Cecille Escobedo RN [facility]-VASCULAR & INTERVENTIONAL RADIOLOGY Social History [...] any time in the past 12 m [facility] [place] were you homeless or living in a [facility]p (including now)? No 09/23/2024 CAGE ASSESSMENT Answer [...] drink first t kimberlyn in the morning (EYE-CARE TAKER) to steady your nerves or to get [...] Description 01/15/2025 4:30 PM EDT Office Visit [facility] Multidisciplinary Oncology Clinic [address] [place] [address] Ochoa Matias MD [address] [facility] [address] [place] [address] documented as of this encounter Visit Diagnoses [...] documented as of this encounter Care Teams Logistics Account Manager Relationship Specialty Start Date End Date Luis Hatfield MD [address] [address] PCP - General 07/24/24 documented as of this encounter
--- OUTSIDE RECORDS SUMMARY | 2024-12-27 09:52 | XMS_ITS | Encounter Summary ---
Author Organization [facility] Address [address] [place] [id number] Care Team Providers Care Cardiovascular Disease Specialist Name Role Phone Luis Hatfield MD Primary Care Provider [phone] Encounter Details Date Type Department Care Team (Late Contact Info) Description 07/12/2024 Telephone [facility] [address] [address] Vicente Wells DO [address] [id number] Social History Tobacco Use Types Packs/Day Years [...] 07/09/2025 10:45 AM EST Office Visit [facility] [address] [address] Vicente Wells DO [address] [phone] documented as of this encounter Visit Diagnoses Not on filedocumented in this encounter Care Teams Cardiovascular Disease Specialist Relationship Specialty Start Date End Date Luis Hatfield MD [address] [facility] [address] [place] [address] PCP - General Family Medicine 06/13/24 documented as of this encounter
--- OUTSIDE RECORDS SUMMARY | 2024-12-27 09:53 | XMS_ITS | Encounter Summary ---
Author Organization [facility] Address [address] [place] [address] Care Team Providers Care Stull Installer Name Role Phone Luis Hatfield MD Primary Care Provider [phone] Encounter Details Date Type Department Care Team (Latest Contact Info) Description 12/20/2024 Travel Social History Tobacco Use Types Packs/Day [...] drink first t kimberlyn in the morning (EYE-GEOMAGNETICIAN) to steady your nerves or to get rid of a hangover? 0 09/11/2024 CAGE Questionnaire Score 0 025 Utilities Answer Date Recorded In the past 12 months has th e [employer], gas, oil, or water company threatened to [...] Description 01/15/2025 4:30 PM EDT Office Visit [facility] Multidisciplinary Oncology Clinic [address] [place] [address] Ochoa Matias MD [address] [place] [address] documented as of this encounter Visit Diagnoses [...] documented as of this encounter Care Teams Stull Installer Relationship Specialty Start Date End Date Luis Hatfield MD [address] [facility] [address] [place] [address] PCP - General 07/24/24 documented as of this encounter
--- OUTSIDE RECORDS SUMMARY | 2024-12-27 09:53 | XMS_ITS | Encounter Summary ---
Author Organization Healthcare Address [address] [place] [address] Care Team Providers Care Certified Orthoptist Name Role Phone Luis Hatfield MD Primary Care Provider [phone] Reason for Visit * Reason Onset Date Comments [facility] 10/24/2024 Encounter Details Date Type Department Care Team (Late st Contact Info) Description 10/24/2024 Telephone [facility] Multidisciplinary Oncology Clinic [address] [place] [address] Ochoa Matias MD [address] [place] [address] [facility] Social History Tobacco Use Types Packs/Day [...] any time in the past 12 m [facility], were you homeless or living [...] drink first t kimberlyn in the morning (EYE-CALIBRATION TECHNICIAN) to steady your nerves or to [...] Description 01/15/2025 4:30 PM EDT Office Visit [facility] Multidisciplinary Oncology Clinic [address] [place] [address] Ochoa Matias MD [address] [id number] [place] [address] documented as of this encounter Visit Diagnoses [...] documented as of this encounter Care Teams Certified Orthoptist Relationship Specialty Start Date End Date Luis Hatfield MD [address] [place] [address] PCP - General 07/24/24 documented as of this encounter
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
--- OUTSIDE RECORDS SUMMARY | 2024-12-27 09:53 | XMS_ITS | Encounter Summary ---
Author Organization [facility] Address [address] [place] [address] Care Team Providers Care Lead Scientist Name Role Phone Luis Hatfield MD Primary Care Provider [phone] Encounter Details Date Type Department Care Team (Late Contact Info) Description 12/26/2024 Results Follow-Up [facility] RHEUMATOLOGY [address] [address] Vicente Wells DO [address] [address] Social History Tobacco Use Types Packs/Day Years Used Date Smoking Tobacco: Every Day Cigarettes Passive Smoke Exposure: Never Smokeless Tobacco: Never Alcohol Use Standard Drinks/Week Comments Not Currently [...] Description 07/09/2025 10:45 AM EST Office Visit [facility] RHEUMATOLOGY [address] [address] Vicente Wells DO [address] [id number] documented as of this encounter Visit Diagnoses Not on filedocumented in this encounter Care Teams Lead Scientist Relationship Specialty Start Date End Date Luis Hatfield MD [address] [place] [address] PCP - General Family Medicine 06/13/24 documented as of this encounter
--- OUTSIDE RECORDS SUMMARY | 2024-12-27 09:53 | XMS_ITS | Encounter Summary ---
Author Organization [facility] Address [address] [id number] Care Team Providers Care Final Armature Tester Name Role Phone Luis Hatfield MD Primary Care Provider [phone] Encounter Details Date Type Department Care Team (Late st Contact Info) Description 11/01/2024 Telephone [facility] [address] [place] [address] Ochoa Matias MD [address] [place] [address] Social History Tobacco Use Types Packs/Day Years [...] drink first t kimberlyn in the morning (EYE-PRE PRESS MANAGER) to steady your nerves or to [...] will receive notification of the communication/outcome via MyChart. documented in this encounter Plan of Treatment Upcoming Encounters Date Type Department Care Team (Late st Contact Info) Description 01/15/2025 4:30 PM EDT Office Visit [facility] Multidisciplinary Oncology Clinic [address] [place] [address] Ochoa Matias MD [address] [facility] [address] [place] [address] documented as of this encounter Visit Diagnoses [...] documented as of this encounter Care Teams Final Armature Tester Relationship Specialty Start Date End Date Luis Hatfield MD [address] [facility] [address] [place], [place] [phone] PCP - General 07/24/24 documented as of this encounter
--- OUTSIDE RECORDS SUMMARY | 2024-12-27 09:54 | XMS_ITS ---
Author Organization [facility] Address [address] [place] [address] Care Team Providers Care Assistant Broker Name Role Phone Luis Hatfield MD Primary Care Provider [phone] Active Problems Problem Noted Date Diagnosed Date Urinary tract infection 09/21/2024 Bladder cancer 07/25/2024 Assessment & Plan (12/20/2024 8:42 AM EDT): Patient is awake, alert and oriented. Hemodynamically stable. No respiratory difficulty. No acute distress. Bilateral PCNT in place. 14 point ROS negative except for above. Current Treatment and Therapy Plans No current plan information found. Past Treatment and Therapy Plans No past plan information found. Lifetime Dose Tracking * Chemical Lifetime Dose Automatic Entry Manual Entr y Fluoro Time 5.52 minutes 4.12 minutes 1.4 minutes Air Kerma 104.24 mGy 77.24 mGy 27 mGy Air Kerma Area Product 943.1 Gym 585.63 Gym 357.47 Gym Resolved Problems Problem Noted Date Diagnosed Date Resolved Date VINCENZO (acute kidney injury) 09/11/2024 Acute blood loss anemia 07/22/202407/13 Bladder mass 07/22/2024 07/25/2024
--- OUTSIDE RECORDS SUMMARY | 2024-12-27 09:54 | XMS_ITS | Encounter Summary ---
Author Organization [facility] Address [address] [id number] Care Team Providers Care Water Reuse Program Manager Name Role Phone Luis Hatfield MD Primary Care Provider [phone] Encounter Details Date Type Department Care Team (Latest Contact Info) Description 12/26/2024 Travel Social History Tobacco Use Types Packs/Day [...] Description 07/09/2025 10:45 AM EST Office Visit [facility] RHEUMATOLOGY [address] [phone] Vicente Wells DO [address] [address] documented as of this encounter Visit Diagnoses Not on filedocumented in this encounter Care Teams Water Reuse Program Manager Relationship Specialty Start Date End Date Luis Hatfield MD [address] [facility] [address] [place] [address] PCP - General Family Medicine 06/13/24 documented as of this encounter
--- OUTSIDE RECORDS SUMMARY | 2024-12-27 09:54 | XMS_ITS | Clinical Summary ---
Author Organization [facility] Address [address] [place] [address] Care Team Providers Care Yardage Tufting Machine Operator Name Role Phone Luis Hatfield MD Primary Care Provider [phone] Allergies Active Allergy Reactions Criticality Noted Date [...] 14 point ROS negative except for above. Resolved Problems Problem Noted Date Diagnosed Date Resolved Date VINCENZO (acute kidney injury) 09/11/2024 Acute blood loss anemia 07/22/202407/13 Bladder mass 07/22/2024 07/25/2024 Encounters Date Type Department Care Team Description 12/20/2024 7:18 AM EDT - 12/20/2024 11:59 PM EDT Hospital Encounter [facility] [address] [place] [address] Liliana Parra Malignant neoplasm of urinary bladder, unspecified site (CMS/HCC) Discharge Disposition: Home or Self Care 12/20/2024 Travel 12/02/2024 Telephone [facility] [address] [place] [address] Cecille Escobedo RN 11/26/2024 Telephone [facility] [address] [place] [address] Ochoa Matias MD [facility] 11/01/2024 Telephone [facility] [address] [place] [address] Ochoa Matias MD 10/24/2024 Telephone [facility] [address] [place] [address] Ochoa Matias MD [facility] 10/18/2024 Telephone [facility] [address] [place] [address] Ochoa Matias MD 10/09/2024 1:15 PM EDT Office Visit [facility] Multidisciplinary Oncology Clinic [address] [place] [address] Ochoa Matias MD Malignant neoplasm of urinary bladder, unspecified site (CMS/HCC) (Primary Dx) 10/09/2024 11:30 AM EDT Office Visit [facility] Interventional Radiology [address] [place] [address] Kristen Bryant, FINAL APPLICATION REVIEWER Malignant neoplasm of urinary bladder, unspecified site (CMS/HCC) (Primary Dx); Bilateral hydronephrosis 10/09/2024 Travel from Last 3 Months Social History [...] any time in the past 12 m [facility], were you homeless or living [...] drink first t kimberlyn in the morning (EYE-STACKER TENDER) to steady your nerves or to [...] Mass Index 26.45 12/20/2024 7:30 AM EDT Plan of Treatment Upcoming Encounters Date Type Department Care Team (Late st Contact Info) Description 01/15/2025 4:30 PM EDT Office Visit [facility] [address] [place] [address] Ochoa Matias MD [address] [place] [address] Health Maintenance Due Date Last Done Comments [facility]-Bone Density Scan 1955 [facility]-Medicare Annual Wellness (AWV) 1955 [facility]-/Child/Adol SDOH Screenings 1955 [facility]-RSTNE-60 Vaccine (#1) 1959 [facility]-DTaP,Tdap,and Td Vaccines (1 [...] Screening Completed 07/22/2024 [facility]-Obesity Intervention Completed 025, 12/20/2024, 10/09/2024, Additional history exists HPV Vaccines Aged Out [...] this topic Medical Devices Implanted Type Area Site Medical Director Device Identifier Shelf Expiration Date Model / Serial / Lot Stent Ureteral Double Pigtail Pos 6fr 26cm - S. - [id number] Implanted:Qty: 1 on 07/23/2024 by Ochoa Matias MD at [facility] Stent N/A: U[id number] 03/11/2026 [id number] / . / [id number] Procedures Procedure Name Priority Date/Time Associated Diagnosis Comments IR NEPHROSTOMY TUBE EXCHANGE Routine 12/20/2024 9:20 AM EDT Malignant neoplasm of urinary bladder, unspecified site (CMS/HCC) [facility]- UROLOGY Routine 10/09/2024 1:43 PM EDT Malignant neoplasm of urinary bladder, unspecified site (CMS/HCC) HEPATITIS C ANTIBODY - ED W/REFLEX TO HCV QUANT PCR STAT 07/22/2024 7:54 PM EST from Last 3 Months or Most Recently Relevant to Health Maintenance Results * IR Nephrostomy Tube Exchange (12/20/2024 9:20 AM EDT) Anatomical Region Laterality Modality Body, Kidney X-Ray Angiograph y Impressions 12/20/2024 10:50 AM EDT Successful bilateral percutaneous nephrostomy tube exchange using 10 Mohawk locking pigtail drainage catheters. PLAN: Nephrostomy tube [...] for routine bilateral nephrostomy tube exchange. TECHNIQUE: Warp Dyeing Tender: Sundeep Bowman MD Supervising attending: Liang Rodriguez [...] antisepsis, followed by sterile barrier draping A bleaching machine operator film was performed to document the [...] were no immediate complication. COMPARISON: None. FINDINGS: Swimming Pool Installer And Servicer images and nephrostograms demonstrate bilateral percutaneous nephrostomy tubes in expected location. COMPLICATION: No. Procedure Note Liang Rodriguez MD - 12/20/2024 CLINICAL INDICATION: 69-year-old female who presents for routine bilateral nephrostomy tubeexchange. TECHNIQUE: Warp Dyeing Tender: Sundeep Bowman MD Supervising attending: Liang Rodriguez [...] cutaneousantisepsis, followed by sterile barrier draping A bleaching machine operator film was performed to document the [...] there were no immediatecomplication. COMPARISON: None. FINDINGS: Swimming Pool Installer And Servicer images and nephrostograms demonstrate bilateral percutaneousnephrostomy tubes [...] MD on 12/20/2024 10:50 AM Kristen Bryant FINAL APPLICATION REVIEWER IMG IR PROCEDURES Final Result * [facility]- UROLOGY (10/09/2024 1:43 PM EDT) [...] type: flexible Cystoscopy route: transurethral Cystoscopy location: [facility] bladder Irrigation used: saline Position: supine Urethra Urethra: normal Vagina Vagina: normal Bladder Bladder comment: Visualization obscured due to hematuria, possible mass at right trigone, stent protruding from right ureteral orifice grasped and removed in its entirety Post-Procedure Details Outcome: patient tolerated procedure well with no complications Disposition: discharged home in satisfactory condition Ochoa Matias MD UROLOGY ORDERABLES Final Re sult * Hepatitis C Antibody - ED (07/22/2024 7:54 PM EST) Hepatitis C Antibody Negative Negative 07/22/2024 9:11 PM EST [facility] Blood Venous blood specimen / Unknown Venipuncture / Unknown 07/22/2024 7:54 PM EST 07/22/2024 8:09 PM EST us [facility] BLOOD ORDERABLES Missy sun Result [facility] [address] [place] [address] from Last 3 Months or Most Recently Relevant to Health Maintenance Insurance [facility] MEDICARE Advance Directives * Full Code (Latest [...] Patient has decision-making capacity? Yes Care Teams Yardage Tufting Machine Operator Relationship Specialty Start Date End Date Luis Hatfield MD [address] [place] [address] PCP - General 07/24/24
--- OUTSIDE RECORDS SUMMARY | 2024-12-27 09:54 | XMS_ITS | Encounter Summary ---
Author Organization [facility] Address [address] [place] [address] Care Team Providers Care Highway Research Engineer Name Role Phone Luis Hatfield MD Primary Care Provider [phone] Encounter Details Date Type Department Care Team (Late Contact Info) Description 12/26/2024 Results Follow-Up [facility] RHEUMATOLOGY [address] [address] Vicente Wells DO [address] [address] Social History Tobacco Use Types Packs/Day Years [...] Description 07/09/2025 10:45 AM EST Office Visit [facility] RHEUMATOLOGY [address] [address] Vicente Wells DO [address] [phone] documented as of this encounter Visit Diagnoses Not on filedocumented in this encounter Care Teams Highway Research Engineer Relationship Specialty Start Date End Date Luis Hatfield MD [address] [place] [address] PCP - General Family Medicine 06/13/24 documented as of this encounter
[2024-12-27 10:27] LABS: Bilirubin,Urine Negative (Negative); Color,Urine YELLOW (Yellow); Glucose,Urine (UA) Negative (Negative); Ketones,Urine Negative (Negative); Leukocyte Esterase,Urine 3+ (Negative); PH,Urine 7.0 (5.0-8.5); Protein,Urine 3+ (Negative); Specific Gravity, Urine 1.025 (1.005-1.030); Urobilinogen,Urine 0.2 EU/dl (0.2)
[2024-12-27 10:32] LABS: Amorphous Sediment,Urine 3+ /lpf; Bacteria,Urine 4+ /lpf; WBC,Urine TNTC #/hpf (0-3)
== END 2024-12-27 23:59 | disposition home or self-care (01) ==
LOC: LAB 09:46
PROVIDERS: PCP Family Medicine; Visit Provider Internal Medicine Medical Oncology
DX: C67.9 Malignant neoplasm of bladder, unspecified (principal)
CPT/HCPCS: 81001; 87086; 87088; 87186

== ENCOUNTER 2025-01-02 09:33 | Outpatient (CLI) | payer MEDICARE, SELFPAY ==
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
--- OUTSIDE RECORDS SUMMARY | 2024-12-08 20:00 | XMS_ITS | Clinical Summary ---
Author Organization Unknown Care Team Providers Care Notching Machine Operator Name Role Phone YANE OSORIO, JONH Unavailable Unavailable LUAN OT, ANNALISA Unavailable Unavailable JOHANA PT, LORENZO Unavailable Unavailable OLVIN RETAIL ASSET PROTECTION SPECIALIST, CHIQUITA Unavailable Unavailable Payers Payer Name Policy Type Policy Number Effective Date Expira tion Date [employer].AUTH [id number] Problems Condition Name Condition Details Condition Category [...] 200 mg tablet 10-01 00:00: 00 Yes [id number] SLE 1 tablet TWICE DAILY 1 tablet TWICE DAILY (route: oral) Med Classific ation: Anti-Infe ctive Agents bupropion HCl 75 mg tablet 09-27 00:00: 00 Yes [id number] SMOKING CESSATION 1 tablet TWICE DAILY 1 tablet TWICE DAILY (route: oral) Med Classific ation: Central Nervous System Agents ondansetron HCl 4 mg tablet 09-27 00:00: 00 Yes [id number] NAUSEA 1 tablet ONCE EVERY 8 HOURS NEEDED 1 tablet ONCE EVERY 8 HOURS NEEDED (route: oral) Med Classific ation: Gastroint estinal Therapy Agents rosuvastati n 40 mg tablet 09-27 00:00: 00 Yes [id number] CHOLESTEROL 1 tablet DAILY 1 tablet DAILY (route: oral) Med Classific ation: Cardiovas cular Therapy Agents tramadol 50 mg tablet 09-27 00:00: 00 Yes [id number] PAIN 1 tablet EVERY 6 HOURS NEEDED 1 tablet EVERY 6 HOURS NEEDED (route: oral) Med Classific ation: Analgesic , Anti-infl ammatory or Antipyret ic estradiol 0.01% (0.1 mg/gram) vaginal cream 16 00:00: 00 Yes [id number] HORMONE 1 inch VAGINALLY ONCE DAILY FOR 2 WEEKS THEN 3 TIMES 1 inch VAGINALLY ONCE DAILY FOR 2 WEEKS THEN 3 TIMES (route: vaginal) Med Classific ation: Vaginal Products sulfamethox azole 800 mg-trimetho prim 160 mg tablet 14 00:00: 00 Yes [id number] ANTIBIOTIC 1 tablet 2 TIMES DAILY 1 tablet 2 TIMES DAILY (route: oral) Med Classific ation: Anti-Infe ctive Agents sodium chloride 0.9 % injection syringe 09-13 00:00: 00 10-12 00:00 :00 No [id number] Per instruc tions Per instructio ns (route: injection) Med Classific ation: Electroly te Balance-N utritiona l Products hydrocodone 5 mg-acetamin ophen 325 mg tablet 10-31 00:00: 00 Yes [id number] NEEDED FOR PAIN 1-2 tablet EVERY 8 [...] PHYSICIANS DR DENA HERNANDEZ PCP, DR IQBAL SEWAGE PLANT ATTENDANT TO OBSERVE AND ASSESS, METALLURGICAL LAB TECHNICIAN/INTERNATIONAL BANK MANAGER TO OBSERVE FOR RISK FOR FALLS AND INSTRUCT IN FALL PREVENTION, HOME SAFETY, MEDICATION MANAGEMENT, INFECTION PREVENTION, AND NUTRITION MANAGEMENT. RN/METALLURGICAL LAB TECHNICIAN/INTERNATIONAL BANK MANAGER NURSE MAY PERFORM O2 SATURATION LEVEL ON ADMISSION AND PRN FOR SOB AND AMS FOR RN TO ASSESS/METALLURGICAL LAB TECHNICIAN TO OBSERVE PATIENT, WITH NOTIFICATION TO THE PHYSICIAN IF SATURATION IS 90% IN THE ABSENCE OF MORE SPECIFIC PARAMETERS FROM THE PHYSICIAN. AGENCY MAY PERFORM A RESUMPTION OF CARE VISIT FOLLOWING ANY HOSPITAL ADMISSION. RN/METALLURGICAL LAB TECHNICIAN/INTERNATIONAL BANK MANAGER TO MONITOR CO-MORBID CONDITIONS LISTED ON THE PLAN OF CARE AND ANY NEW CONDITIONS THAT PRESENT THEMSELVES DURING THIS EPISODE TO IDENTIFY CHANGES AND INTERVENE TO MINIMIZE COMPLICATIONS. [code = RN TO OBSERVE, ASSESS, EVALUATE, AND DEVELOP AN INDIVIDUALIZED PLAN OF CARE. AGENCY MAY ACCEPT ORDERS FROM CONSULTING PHYSICIANS DR DENA HERNANDEZ PCP, DR IQBAL SEWAGE PLANT ATTENDANT TO OBSERVE AND ASSESS, METALLURGICAL LAB TECHNICIAN/INTERNATIONAL BANK MANAGER TO OBSERVE FOR RISK FOR FALLS AND INSTRUCT IN FALL PREVENTION, HOME SAFETY, MEDICATION MANAGEMENT, INFECTION PREVENTION, AND NUTRITION MANAGEMENT. RN/METALLURGICAL LAB TECHNICIAN/INTERNATIONAL BANK MANAGER NURSE MAY PERFORM O2 SATURATION LEVEL ON ADMISSION AND PRN FOR SOB AND AMS FOR RN TO ASSESS/METALLURGICAL LAB TECHNICIAN TO OBSERVE PATIENT, WITH NOTIFICATION TO THE PHYSICIAN IF SATURATION IS 90% IN THE ABSENCE OF MORE SPECIFIC PARAMETERS FROM THE PHYSICIAN. AGENCY MAY PERFORM A RESUMPTION OF CARE VISIT FOLLOWING ANY HOSPITAL ADMISSION. RN/METALLURGICAL LAB TECHNICIAN/INTERNATIONAL BANK MANAGER TO MONITOR CO-MORBID CONDITIONS LISTED ON THE PLAN OF CARE AND ANY NEW CONDITIONS THAT PRESENT THEMSELVES DURING THIS EPISODE TO IDENTIFY CHANGES AND INTERVENE TO MINIMIZE COMPLICATIONS.] Future Scheduled Test MEDICATION MANAGEMENT; RN/METALLURGICAL LAB TECHNICIAN/INTERNATIONAL BANK MANAGER TO REVIEW MEDICATIONS FOR INTERACTIONS, EFFECTIVENESS OF DRUG THERAPY, AND SIGNS/SYMPTOMS OF ADVERSE REACTIONS. MAY INSTRUCT AND REINFORCE MEDICATION TEACHING RELATED TO THE USE OF MEDICATIONS, DOSAGE, FREQUENCY, PURPOSE, SIDE EFFECTS, AND TO REPORT COMPLICATIONS. [code = MEDICATION MANAGEMENT; RN/METALLURGICAL LAB TECHNICIAN/INTERNATIONAL BANK MANAGER TO REVIEW MEDICATIONS FOR INTERACTIONS, EFFECTIVENESS OF DRUG THERAPY, AND SIGNS/SYMPTOMS OF ADVERSE REACTIONS. MAY INSTRUCT AND REINFORCE MEDICATION TEACHING RELATED TO THE USE OF MEDICATIONS, DOSAGE, FREQUENCY, PURPOSE, SIDE EFFECTS, AND TO REPORT COMPLICATIONS.] Future Scheduled Test RISK FOR H OSPITALIZATION; RN TO ASSESS/TEACH, INTERNATIONAL BANK MANAGER/METALLURGICAL LAB TECHNICIAN TO OBSERVE/TEACH PATIENT/CAREGIVER ON RISK FOR HOSPITALIZATION/EMERGENCY ROOM VISITS, TEACH SIGNS AND SYMPTOMS THAT PUT PATIENT AT RISK, WHEN TO NOTIFY NURSE/PHYSICIAN OF COMPLICATIONS/DECLINE, AND WHEN TO CALL 911. [code = RISK FOR HOSPITALIZATION; RN TO ASSESS/TEACH, INTERNATIONAL BANK MANAGER/METALLURGICAL LAB TECHNICIAN TO OBSERVE/TEACH PATIENT/CAREGIVER ON RISK FOR HOSPITALIZATION/EMERGENCY ROOM VISITS, TEACH SIGNS AND SYMPTOMS THAT PUT PATIENT AT RISK, WHEN TO NOTIFY NURSE/PHYSICIAN OF COMPLICATIONS/DECLINE, AND WHEN TO CALL 911.] Future Scheduled Test CARDIOVASC ULAR SYSTEM; RN TO ASSESS/TEACH, METALLURGICAL LAB TECHNICIAN/INTERNATIONAL BANK MANAGER TO OBSERVE/TEACH RELATED TO ALTERED CARDIOVASCULAR STATUS TO MINIMIZE COMPLICATIONS AND REDUCE HOSPITALIZATION. [code = CARDIOVASCULAR SYSTEM; RN TO ASSESS/TEACH, METALLURGICAL LAB TECHNICIAN/INTERNATIONAL BANK MANAGER TO OBSERVE/TEACH RELATED TO ALTERED CARDIOVASCULAR STATUS TO MINIMIZE COMPLICATIONS AND REDUCE HOSPITALIZATION.] Future Scheduled Test HYPERTENSI ON MANAGEMENT; RN TO ASSESS AND TEACH, METALLURGICAL LAB TECHNICIAN/INTERNATIONAL BANK MANAGER TO OBSERVE AND TEACH WARNING SIGNS AND SYMPTOMS TO AVOID HOSPITALIZATION. [code = HYPERTENSION MANAGEMENT; RN TO ASSESS AND TEACH, METALLURGICAL LAB TECHNICIAN/INTERNATIONAL BANK MANAGER TO OBSERVE AND TEACH WARNING SIGNS AND SYMPTOMS TO AVOID HOSPITALIZATION.] Future Scheduled Test RESPIRATOR Y SYSTEM MANAGEMENT; RN TO ASSESS AND TEACH, METALLURGICAL LAB TECHNICIAN/INTERNATIONAL BANK MANAGER TO OBSERVE AND TEACH RELATED TO ALTERED RESPIRATORY STATUS TO MINIMIZE COMPLICATIONS AND REDUCE HOSPITALIZATION. [code = RESPIRATORY SYSTEM MANAGEMENT; RN TO ASSESS AND TEACH, METALLURGICAL LAB TECHNICIAN/INTERNATIONAL BANK MANAGER TO OBSERVE AND TEACH RELATED TO ALTERED RESPIRATORY STATUS TO MINIMIZE COMPLICATIONS AND REDUCE HOSPITALIZATION.] Future Scheduled Test PAIN MANAG EMENT; RN TO ASSESS AND TEACH, INTERNATIONAL BANK MANAGER/METALLURGICAL LAB TECHNICIAN TO OBSERVE AND TEACH AND PROVIDE EDUCATION ON PAIN MANAGEMENT TECHNIQUES. [code = PAIN MANAGEMENT; RN TO ASSESS AND TEACH, INTERNATIONAL BANK MANAGER/METALLURGICAL LAB TECHNICIAN TO OBSERVE AND TEACH AND PROVIDE EDUCATION ON PAIN MANAGEMENT TECHNIQUES.] Future Scheduled Test CANCER MAN AGEMENT; RN TO ASSESS AND TEACH, INTERNATIONAL BANK MANAGER/METALLURGICAL LAB TECHNICIAN TO OBSERVE AND TEACH AND PROVIDE EDUCATION ON CANCER. [code = CANCER MANAGEMENT; RN TO ASSESS AND TEACH, INTERNATIONAL BANK MANAGER/METALLURGICAL LAB TECHNICIAN TO OBSERVE AND TEACH AND PROVIDE EDUCATION ON CANCER.] Future Scheduled Test RN TO ASSE SS AND TEACH, METALLURGICAL LAB TECHNICIAN/INTERNATIONAL BANK MANAGER TO OBSERVE AND TEACH FOR SIGNS AND SYMPTOMS OF SEPSIS AND/OR POST-SEPSIS SYNDROME AND INTERVENE TO MINIMIZE COMPLICATIONS. RN/METALLURGICAL LAB TECHNICIAN/INTERNATIONAL BANK MANAGER TO PROVIDE SKILLED TEACHING TO PATIENT/CAREGIVER ON SEPSIS AND SELF-MANAGEMENT TECHNIQUES. RN/METALLURGICAL LAB TECHNICIAN/INTERNATIONAL BANK MANAGER TO MONITOR PATIENT/CAREGIVER ADHERENCE TO MONITOR AND RECORD VITAL SIGNS INCLUDING TEMPERATURE, HEART RATE, RESPIRATIONS, AND SYMPTOMS. [code = RN TO ASSESS AND TEACH, METALLURGICAL LAB TECHNICIAN/INTERNATIONAL BANK MANAGER TO OBSERVE AND TEACH FOR SIGNS AND SYMPTOMS OF SEPSIS AND/OR POST-SEPSIS SYNDROME AND INTERVENE TO MINIMIZE COMPLICATIONS. RN/METALLURGICAL LAB TECHNICIAN/INTERNATIONAL BANK MANAGER TO PROVIDE SKILLED TEACHING TO PATIENT/CAREGIVER ON SEPSIS AND SELF-MANAGEMENT TECHNIQUES. RN/METALLURGICAL LAB TECHNICIAN/INTERNATIONAL BANK MANAGER TO MONITOR PATIENT/CAREGIVER ADHERENCE TO MONITOR AND RECORD VITAL SIGNS INCLUDING TEMPERATURE, HEART RATE, RESPIRATIONS, AND SYMPTOMS. ] Future Scheduled Test FALL REDUC TION MANAGEMENT; RN TO ASSESS AND OBSERVE, METALLURGICAL LAB TECHNICIAN/INTERNATIONAL BANK MANAGER TO OBSERVE FALL RISK FACTORS AND EDUCATE PATIENT/CAREGIVER ON STRATEGIES TO MINIMIZE THE RISK OF FALLING. [code = FALL REDUCTION MANAGEMENT; RN TO ASSESS AND OBSERVE, METALLURGICAL LAB TECHNICIAN/INTERNATIONAL BANK MANAGER TO OBSERVE FALL RISK FACTORS AND EDUCATE [...] TO EVALUATE, OBSERVE / ASSESS, AND MONITOR, BRUSH WORKER TO OBSERVE AND MONITOR, PROVIDE SKILLED THERAPEUTIC INTERVENTION, ACTIVITY, EDUCATION, AND TRAINING TO ADDRESS; DEFICITS IN STRENGTH/BALANCE/ENDURANCE, AND TO INCREASE SAFETY AND INDEPENDENCE WITH ADLS, FUNCTIONAL TRANSFERS/MOBILITY, HOME MANAGEMENT TASKS. MD OFFICE OF DR JONH CHE NOTIFIED OF COMPLETION OF OCCUPATIONAL THERAPY EVALUATION AND PLAN OF CARE. BATHING/SHOWERING (OT/BRUSH WORKER) DRESSING (OT/DUSTY) ACTIVITIES OF DAILY LIVING (OT/BRUSH WORKER) MEAL PREPARATION AND CLEANUP (OT/DUSTY) BATH/SHOWER TRANSFER (OT/BRUSH WORKER) HOME ACTIVITY / EXERCISE PROGRAM (OT/DUSTY) POSTURAL CONTROL/BALANCE (OT/DUSTY) OT/BRUSH WORKER MAY EDUCATE ON PAIN MANAGEMENT CLINICALLY INDICATED, INCLUDING NON-PHARMACOLOGICAL PAIN REDUCTION TECHNIQUES AND USE OF CRYOTHERAPY OR HEAT UP TO 20 MIN AT A TIME FOR PAIN MANAGEMENT. OT/BRUSH WORKER TO INSTRUCT PATIENT/CAREGIVER ON RISK FOR HOSPITALIZATION/EMERGENCY ROOM VISITS, TEACH SIGNS AND SYMPTOMS THAT PUT PATIENT AT RISK, WHEN TO NOTIFY NURSE/PHYSICIAN OF COMPLICATIONS/DECLINE, AND WHEN TO CALL 911. OT / BRUSH WORKER TO IDENTIFY FALL RISK FACTORS; EDUCATE THE PATIENT/CAREGIVER ON WAYS TO REDUCE FALL RISK FACTORS AND ESTABLISH HOME EXERCISE PROGRAM TO MINIMIZE FALL RISK. MAY TEACH THE PATIENT FLOOR RECOVERY WHEN CLINICALLY APPROPRIATE. [code = AGENCY MAY PERFORM A RESUMPTION OF CARE VISIT FOLLOWING ANY HOSPITAL ADMISSION. OT TO EVALUATE, OBSERVE / ASSESS, AND MONITOR, BRUSH WORKER TO OBSERVE AND MONITOR, PROVIDE SKILLED THERAPEUTIC INTERVENTION, ACTIVITY, EDUCATION, AND TRAINING TO ADDRESS; DEFICITS IN STRENGTH/BALANCE/ENDURANCE, AND TO INCREASE SAFETY AND INDEPENDENCE WITH ADLS, FUNCTIONAL TRANSFERS/MOBILITY, HOME MANAGEMENT TASKS. MD OFFICE OF DR JONH CHE NOTIFIED OF COMPLETION OF OCCUPATIONAL THERAPY EVALUATION AND PLAN OF CARE. BATHING/SHOWERING (OT/DUSTY) DRESSING (OT/BRUSH WORKER) ACTIVITIES OF DAILY LIVING (OT/DUSTY) MEAL PREPARATION AND CLEANUP (OT/DUSTY) BATH/SHOWER TRANSFER (OT/BRUSH WORKER) HOME ACTIVITY / EXERCISE PROGRAM (OT/DUSTY) POSTURAL CONTROL/BALANCE (OT/DUSTY) OT/BRUSH WORKER MAY EDUCATE ON PAIN MANAGEMENT CLINICALLY INDICATED, INCLUDING NON-PHARMACOLOGICAL PAIN REDUCTION TECHNIQUES AND USE OF CRYOTHERAPY OR HEAT UP TO 20 MIN AT A TIME FOR PAIN MANAGEMENT. OT/BRUSH WORKER TO INSTRUCT PATIENT/CAREGIVER ON RISK FOR HOSPITALIZATION/EMERGENCY ROOM VISITS, TEACH SIGNS AND SYMPTOMS THAT PUT PATIENT AT RISK, WHEN TO NOTIFY NURSE/PHYSICIAN OF COMPLICATIONS/DECLINE, AND WHEN TO CALL 911. OT / BRUSH WORKER TO IDENTIFY FALL RISK FACTORS; EDUCATE THE [...] End Date/Time Encounter Type Admission Type Attending [facility] Care Department Encounter ID Discharge Date Discharge Status Discharge Condition Discharge Reason Percent Goals Met 2024-10-12 00:00:00 2024-12-09 00:00:00 Outpatient NEW ADMISSION ANNALISA [facility] [id number] 2024-12-09 00:00:00 DISCHARGE TO HOME OR SELF CARE INDEPENDEN T IN THE [facility] - GOALS MET 96.30
--- OUTSIDE RECORDS SUMMARY | 2024-12-20 07:18 | XMS_ITS | Encounter Summary ---
Author Organization [facility] Address [address] [place] [address] Care Team Providers Care Tile And Marble Installer Name Role Phone Luis Hatfield MD Primary Care Provider [phone] Reason for Referral * Imaging (Routine) - Closed Specialty Diagnoses / Procedures Referred By Stephen parks Referred To Contact Radiology Diagnoses Malignant neoplasm of urinary bladder, unspecified site (CMS/HCC) Procedures IR Nephrostomy Tube Exchange Kristen Bryant APRN [address] [place] [address] Phone: tel: fax: Referral ID Status Reason Start Date Expiration Date Visits Re quested Visits Authorized [id number] Closed 10/09/2024 04/10/2026 1 1 Reason for Visit * Imaging (Routine) - Closed Specialty Diagnoses / Procedures Referred By Stephen parks Referred To Contact Radiology Diagnoses Malignant neoplasm of urinary bladder, unspecified site (CMS/HCC) Procedures IR Nephrostomy Tube Exchange Kristen Bryant APRN [address] [place] [address] Phone: tel: fax: Referral ID Status Reason Start Date Expiration Date Visits Re quested Visits Authorized [id number] Closed 10/09/2024 04/10/2026 1 1 Encounter Details Date Type Department Care Team (Latest Contact Info) Description 12/20/2024 7:18 AM EDT - 12/20/2024 11:59 PM EDT Hospital Encounter [facility] Interventional Radiology [address] [place] [address] AidaMihirLiliana Malignant neoplasm of urinary bladder, unspecified [...] any time in the past 12 m [facility], were you homeless or living in a [...] drink first t kimberlyn in the morning (EYE-UPPER CUTTER MACHINE) to steady your nerves or to get rid of a hangover? 0 09/11/2024 CAGE Questionnaire Score 0 025 Utilities Answer Date Recorded In the past 12 months has th [employer], gas, oil, or water company threatened to [...] call: Vascular & Interventional Radiology Clinic at [phone] Monday - Monday 8:00 AM to 4:30 PM After hours, weekends, and holidays please call [phone] and ask for the Interventional Radiology provider/Resident on-call For Emergencies please go to the nearest Emergency Room or dial 911. Intervention Radiology Appointments: If you need to reschedule a procedure, please call our Schedulers at [phone], option 4. If you need to schedule or reschedule a clinic appointment, please call [phone]. [facility] Vascular and Interventional Radiology Clinic [address] [place] [address] documented in this encounter Medications at Time [...] from the original note were not included. [id number] Percutaneous Nephrostomy You had a procedure called [...] and warm water or an alcohol-based hand apron cleaner ?? Disposable medical gloves - they [...] 4. Wipe the skin gently in a chalkyitsik. Move away from the drain tube in [...] hands with soap & water or hand apron cleaner and put on a new pair [...] hands with soap and water or hand apron cleaner. They can also put on a [...] syringe to the needleless port with a dwvu-fzd-hiicd motion. ? Flush the tube: Push on [...] your tube from getting blocked. * [facility] - 12/20/2024 9:46 AM EDT Images from the original note were not included. [id number] Discharge Instructions for Percutaneous Nephrostomy You had [...] symptoms Last Reviewed Date: 2022 00:00:00 ?? [id number] [employer]. All rights reserved. This information is not [...] been discussed with the patient and/or their parts counter representative. All questions answered and they agree [...] had enough tubes placed 09/12/2024 with 8 Haitian bilaterally. Shedoes not report any symptoms or [...] 93%. Results Review {Vanishing Link Review Results :[id number] I have reviewed the latest lab and [...] [facility] [address] [place] [address] Ochoa Matias MD [address] [place] [address] documented as of this encounter Procedures Procedure [...] bilateral percutaneous nephrostomy tube exchange using 10 Haitian locking pigtail drainage catheters. PLAN: Nephrostomy tube [...] for routine bilateral nephrostomy tube exchange. TECHNIQUE: Receiver Bulk System: Sundeep Bowman MD Supervising attending: Liang Rodriguez [...] antisepsis, followed by sterile barrier draping A bookstore manager film was performed to document the location [...] were no immediate complication. COMPARISON: None. FINDINGS: Manufacturing Shift Supervisor images and nephrostograms demonstrate bilateral percutaneous nephrostomy tubes in expected location. COMPLICATION: No. Procedure Note Liang Rodriguez MD - 12/20/2024 CLINICAL INDICATION: 69-year-old female who presents for routine bilateral nephrostomy tubeexchange. TECHNIQUE: Receiver Bulk System: Sundeep Bowman MD Supervising attending: Liang Rodriguez [...] cutaneousantisepsis, followed by sterile barrier draping A bookstore manager film was performed to document the location [...] there were no immediatecomplication. COMPARISON: None. FINDINGS: Manufacturing Shift Supervisor images and nephrostograms demonstrate bilateral percutaneousnephrostomy tubes [...] on 12/20/2024 10:50 AM Kristen Donovan Manny SOW FARM BARN TECHNICIAN IMG IR PROCEDURES Final Result documented in [...] documented as of this encounter Care Teams Tile And Marble Installer Relationship Specialty Start Date End Date Luis Hatfield MD [address] [place] [address] PCP - General 07/24/24 documented as of this encounter
--- OUTSIDE RECORDS SUMMARY | 2024-12-26 10:30 | XMS_ITS | Encounter Summary ---
Author Organization [facility] Address [address] [id number] Care Team Providers Care Geological Manager Name Role Phone Luis Hatfield MD Primary Care Provider [phone] Reason for Visit * Reason Comments Seropositive rheumatoid arthritis 6 veronica h follow up Encounter Details Date Type Department Care Team (Latest Contact Info) Description 12/26/2024 10:30 AM EDT Office Visit [facility] RHEUMATOLOGY [address] [phone] Nguyen Romero APRN [address] [address] Seropositive rheumatoid arthritis (Primary Dx); Systemic lupus [...] DNA 13.0 (<4.0), Centromere and Chromatin normal, RUBBER TUBING SPLICER and SCL 70 normal, Christine normal, SSA and SSB normal, total bilirubin 1.4, Glucose 117, CMP was ok otherwise, CCP negative, CRP Normal, RF 110 (<14.0 normal), ESR normal, TSH normal * Medications/treatments/interventions tried include: Tylenol, meloxicam, Advil, CBD oil, Tumeric, Aspirin, Plaquenil, she has seen podiatry (Miky Steele DPM), she has seen ceramic painter (Dr. Jed Trevino), Ketamine, gabapentin, She has [...] lesion. She brought in medical records from [facility] for us to review. Subjective Review [...] DNA 13.0 (<4.0), Centromere and Chromatin normal, RUBBER TUBING SPLICER and SCL 70 normal, Christine normal, SSA and SSB normal, total bilirubin 1.4, Glucose 117, CMP was ok otherwise, CCP negative, CRP Normal, RF 110 (<14.0 normal), ESR normal, TSH normal * Medications/treatments/interventions tried include: Tylenol, meloxicam, Advil, CBD oil, Tumeric, Aspirin, Plaquenil, she has seen podiatry (Miky Steele DPM), she has seen ceramic painter (Dr. Jed Trevino), Ketamine, gabapentin, She has [...] Wells. Nguyen Romero APRN [facility] [place] documented in this encounter Plan of Treatment Upcoming Encounters Date Type Department Care Team (Late st Contact Info) Description 07/09/2025 10:45 AM EST Office Visit [facility] RHEUMATOLOGY [address] [place] [phone] Vicente Wells DO [address] [phone] Scheduled Orders Name Type Priority Associated Diagnoses [...] anti-inflammatories documented in this encounter Care Teams Geological Manager Relationship Specialty Start Date End Date Luis Hatfield MD [address] [facility] [address] [facility] [address] [place] [id number] PCP - General Family Medicine 06/13/24 documented as of this encounter
--- OUTSIDE RECORDS SUMMARY | 2025-01-02 09:38 | XMS_ITS | Clinical Summary ---
Author Organization [facility] Address [address] [place] [address] Care Team Providers Care Bottling Supervisor Name Role Phone Luis Hatfield MD Primary Care Provider [phone] Allergies Active Allergy Reactions Criticality Noted Date [...] DNA 13.0 (<4.0), Centromere and Chromatin normal, SINGLE FOLD MACHINE OPERATOR and SCL 70 normal, Christine normal, SSA and SSB normal, total bilirubin 1.4, Glucose 117, CMP was ok otherwise, CCP negative, CRP Normal, RF 110 (<14.0 normal), ESR normal, TSH normal * Medications/treatments/interventions tried include: Tylenol, meloxicam, Advil, CBD oil, Tumeric, Aspirin, Plaquenil, she has seen podiatry (Miky Steele DPM), she has seen body technician/painter (Dr. Jed Trevino), Ketamine, gabapentin, She has [...] DNA 13.0 (<4.0), Centromere and Chromatin normal, SINGLE FOLD MACHINE OPERATOR and SCL 70 normal, Christine normal, SSA and SSB normal, total bilirubin 1.4, Glucose 117, CMP was ok otherwise, CCP negative, CRP Normal, RF 110 (<14.0 normal), ESR normal, TSH normal * Medications/treatments/interventions tried include: Tylenol, meloxicam, Advil, CBD oil, Tumeric, Aspirin, Plaquenil, she has seen podiatry (Miky Steele DPM), she has seen body technician/painter (Dr. Jed Trevino), Ketamine, gabapentin, She has [...] DNA 13.0 (<4.0), Centromere and Chromatin normal, SINGLE FOLD MACHINE OPERATOR and SCL 70 normal, Christine normal, SSA and SSB normal, total bilirubin 1.4, Glucose 117, CMP was ok otherwise, CCP negative, CRP Normal, RF 110 (<14.0 normal), ESR normal, TSH normal * Medications/treatments/interventions tried include: Tylenol, meloxicam, Advil, CBD oil, Tumeric, Aspirin, Plaquenil, she has seen podiatry (Miky Steele DPM), she has seen body technician/painter (Dr. Jed Trevino), Ketamine, gabapentin, She has [...] Description 12/26/2024 10:30 AM EDT Office Visit [facility] [address] [address] Nguyen Romero APRN Seropositive rheumatoid arthritis (Primary Dx); Systemic lupus erythematosus, unspecified SLE type, unspecified organ involvement status; High risk medication use; Primary osteoarthritis involving multiple joints; NSAID long-term use 12/26/2024 Results Follow-Up [facility] [address] [address] Vicente Wells, 12/26/2024 Results Follow-Up [facility] [address] [address] Vicente Wells, 12/26/2024 Travel from [...] Description 07/09/2025 10:45 AM EST Office Visit [facility] [address] [place] [address] Vicente Wells DO [address] [facility] [address] [place] [address] Health Maintenance Due Date Last Done Comments [...] Insurance [employer] PPO Care Teams Bottling Supervisor Relationship Specialty Start Date End Date Luis Hatfield MD [address] [facility] [address] [facility] [address] [place] [id number] PCP - General Family Medicine 06/13/24
--- OUTSIDE RECORDS SUMMARY | 2025-01-02 09:39 | XMS_ITS | Encounter Summary ---
Author Organization Healthcare Address [address] [id number] Care Team Providers Care Business Support Administrator Name Role Phone Luis Hatfield MD Primary Care Provider [phone] Encounter Details Date Type Department Care Team (Late st Contact Info) Description 08/19/2024 Lab Requisition [facility] [address] [place] [address] Ochoa Matias MD [address] [place] [address] Malignant neoplasm of bladder, unspecified (CMS/HCC) Social History Tobacco Use Types Packs/Day Years Used Date Smoking Tobacco: Every Day Cigarettes 0.5 25.6 Started: 1999 Smokeless Tobacco: Never Alcohol Use [...] any time in the past 12 m [facility], were you homeless or living in a correction (including now)? No 07/24/2024 CAGE ASSESSMENT Answer [...] drink first t kimberlyn in the morning (EYE-LEATHER SOFTENER) to steady your nerves or to get [...] Description 01/15/2025 4:30 PM EDT Office Visit [facility] Multidisciplinary Oncology Clinic [address] [place] [address] Ochoa Matias MD [address] [place] [address] documented as of this encounter Procedures Procedure [...] name Selwyn Geller 09/05/2024 7:35 AM EDT [facility] Comment:[id number], A3 Test Result see scan 09/05/2024 7:35 AM EDT [facility] See Scanned Result 09/05/2024 7:35 AM EDT [facility] Tissue 07/23/2024 1:18 PM EST 08/19/2024 1:48 PM EDT us Ochoa Matias MD LAB REF LAB BLOOD AND FLUID ORD Final Result [facility] [address] [place] [address] * - AP Miscellaneous Test (07/23/2024 1:18 PM EST) Test name Selwyn Viviane Espinosa 09/09/2024 8:04 AM EDT [facility] Comment:[id number], A3 Test Result see scan 09/09/2024 8:04 AM EDT [facility] See Scanned Result 09/09/2024 8:04 AM EDT [facility] Tissue 07/23/2024 1:18 PM EST 08/19/2024 1:48 PM EDT us Ochoa Matias MD LAB REF LAB BLOOD AND FLUID ORD Final Result [facility] [address] [place] [address] documented in this encounter Visit Diagnoses Diagnosis Malignant neoplasm of bladder, unspecified (CMS/HCC) documented in this encounter Additional Health Concerns Assessment Noted Time A Body Mass Index follow-up plan has been documented for the patient 07/25/2024 1:21 PM EST documented as of this encounter Care Teams Business Support Administrator Relationship Specialty Start Date End Date Luis Hatfield MD [address] [place] [address] PCP - General 07/24/24 documented as of this encounter
--- OUTSIDE RECORDS SUMMARY | 2025-01-02 09:39 | XMS_ITS | Encounter Summary ---
Author Organization Healthcare Address [address] [place] [address] Care Team Providers Care Fish Farmer Name Role Phone Luis Hatfield MD Primary Care Provider [phone] Reason for Visit * Reason Onset Date Comments [facility] 11/26/2024 Encounter Details Date Type Department Care Team (Late st Contact Info) Description 11/26/2024 Telephone [facility] Multidisciplinary Oncology Clinic [address] [place] [address] Ochoa Matias MD [address] [place] [address] [facility] Social History Tobacco Use Types [...] first t kimberlyn in the morning (EYE-MANAGER ASSET) to steady your nerves or to get [...] Description 01/15/2025 4:30 PM EDT Office Visit [facility] Multidisciplinary Oncology Clinic [address] [place] [address] Ochoa Matias MD [address] [facility] [address] [place] [address] documented as of this encounter Visit Diagnoses [...] documented as of this encounter Care Teams Fish Farmer Relationship Specialty Start Date End Date Luis Hatfield MD [address] [address] PCP - General 07/24/24 documented as of this encounter
--- OUTSIDE RECORDS SUMMARY | 2025-01-02 09:39 | XMS_ITS | Encounter Summary ---
Author Organization [facility] Address [address] [id number] Care Team Providers Care After School Teacher Name Role Phone Luis Hatfield MD Primary Care Provider [phone] Encounter Details Date Type Department Care Team ([facility] Contact Info) Description 07/12/2024 Telephone [facility] [address] [address] Santiago Anders MD [address] [phone] Social History Tobacco Use Types Packs/Day Years [...] Description 07/09/2025 10:45 AM EST Office Visit [facility] [address] [address] Vicente Wells DO [address] [address] documented as of this encounter Visit Diagnoses Not on filedocumented in this encounter Care Teams After School Teacher Relationship Specialty Start Date End Date Luis Hatfield MD [address] [facility] [address] [place] [phone] PCP - General Family Medicine 06/13/24 documented as of this encounter
--- OUTSIDE RECORDS SUMMARY | 2025-01-02 09:39 | XMS_ITS | Encounter Summary ---
Author Organization Healthcare Address [address] [place] [address] Care Team Providers Care Manual Training Teacher Name Role Phone Luis Hatfield MD Primary Care Provider [phone] Encounter Details Date Type Department Care Team (Late st Contact Info) Description 12/02/2024 Telephone [facility] A Interventional Radiology [address] [place] [address] Cecille Escobedo RN CH-VASCULAR & INTERVENTIONAL RADIOLOGY [...] any time in the past 12 m [facility], were you homeless or living in [...] drink first t kimberlyn in the morning (EYE-SPACE ENGINEER) to steady your nerves or to get [...] Description 01/15/2025 4:30 PM EDT Office Visit [facility] Multidisciplinary Oncology Clinic [address] [place] [address] Ochoa Matias MD [address] [facility] [address] [place] [address] documented as of this encounter Visit Diagnoses [...] documented as of this encounter Care Teams Manual Training Teacher Relationship Specialty Start Date End Date Luis Hatfield MD [address] [address] PCP - General 07/24/24 documented as of this encounter
--- OUTSIDE RECORDS SUMMARY | 2025-01-02 09:39 | XMS_ITS | Encounter Summary ---
Author Organization [facility] Address [address] [id number] Care Team Providers Care Roll Up Operator Name Role Phone Luis Hatfield MD Primary Care Provider [phone] Encounter Details Date Type Department Care Team (Late Contact Info) Description 07/12/2024 Telephone [facility] [address] [address] Vicente Wells DO [address] [id number] Social History Tobacco Use Types Packs/Day Years [...] Description 07/09/2025 10:45 AM EST Office Visit [facility] [address] [address] Vicente Wells DO [address] [address] documented as of this encounter Visit Diagnoses Not on filedocumented in this encounter Care Teams Roll Up Operator Relationship Specialty Start Date End Date Luis Hatfield MD [address] [facility] [address] [place] [address] PCP - General Family Medicine 06/13/24 documented as of this encounter
--- OUTSIDE RECORDS SUMMARY | 2025-01-02 09:40 | XMS_ITS | Encounter Summary ---
Author Organization [facility] Address [address] [place] [address] Care Team Providers Care Net Development Manager Name Role Phone Luis Hatfield MD Primary Care Provider [phone] Encounter Details Date Type Department Care Team [...] any time in the past 12 m [facility], were you homeless or living in a senior living (including now)? No 09/23/2024 CAGE ASSESSMENT Answer [...] drink first t kimberlyn in the morning (EYE-TRACTOR OPERATOR) to steady your nerves or to get rid of a hangover? 0 09/11/2024 CAGE Questionnaire Score 0 025 Utilities Answer Date Recorded In the past 12 months has th e [employer], gas, oil, or water company threatened to [...] [facility] Multidisciplinary Oncology Clinic [address] [place] [address] Ochoa Matias MD [address] [place] [address] documented as of this encounter Visit Diagnoses [...] documented as of this encounter Care Teams Net Development Manager Relationship Specialty Start Date End Date Luis Hatfield MD [address] [facility] [address] [place] [address] PCP - General 07/24/24 documented as of this encounter
--- OUTSIDE RECORDS SUMMARY | 2025-01-02 09:40 | XMS_ITS | Encounter Summary ---
Author Organization [facility] Address [address] [place] [address] Care Team Providers Care Blasting Entryman Name Role Phone Luis Hatfield MD Primary Care Provider [phone] Encounter Details Date Type Department Care Team (Late Contact Info) Description 12/26/2024 Results Follow-Up [facility] [address] [address] Vicente Wells DO [address] [address] Social History Tobacco Use Types Packs/Day Years [...] Description 07/09/2025 10:45 AM EST Office Visit [facility] [address] [address] Vicente Wells DO [address] [id number] documented as of this encounter Visit Diagnoses Not on filedocumented in this encounter Care Teams Blasting Entryman Relationship Specialty Start Date End Date Luis Hatfield MD [address] [place] [address] PCP - General Family Medicine 06/13/24 documented as of this encounter
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
--- OUTSIDE RECORDS SUMMARY | 2025-01-02 09:41 | XMS_ITS | Encounter Summary ---
Author Organization [facility] Address [address] [place] [address] Care Team Providers Care Handle Turner Name Role Phone Luis Hatfield MD Primary Care Provider [phone] Encounter Details Date Type Department Care Team (Late Contact Info) Description 12/26/2024 Results Follow-Up [facility] [address] [address] Vicente Wells DO [address] [address] Social History Tobacco Use Types Packs/Day Years [...] 07/09/2025 10:45 AM EST Office Visit [facility] [address] [address] Vicente Wells DO [address] [id number] documented as of this encounter Visit Diagnoses Not on filedocumented in this encounter Care Teams Handle Turner Relationship Specialty Start Date End Date Luis Hatfield MD [address] [place] [address] PCP - General Family Medicine 06/13/24 documented as of this encounter
--- OUTSIDE RECORDS SUMMARY | 2025-01-02 09:41 | XMS_ITS | Encounter Summary ---
Author Organization [facility] Address [address] [place] [id number] Care Team Providers Care Paint Process Engineer Name Role Phone Luis Hatfield MD Primary Care Provider [phone] Encounter Details Date Type Department Care Team [...] Description 07/09/2025 10:45 AM EST Office Visit [facility] [address] [phone] Vicente Wells DO [address] [address] documented as of this encounter Visit Diagnoses Not on filedocumented in this encounter Care Teams Paint Process Engineer Relationship Specialty Start Date End Date Luis Hatfield MD [address] [facility] [address] [place] [address] PCP - General Family Medicine 06/13/24 documented as of this encounter
--- OUTSIDE RECORDS SUMMARY | 2025-01-02 09:41 | XMS_ITS ---
Author Organization [facility] Address [address] [place] [address] Care Team Providers Care Rigging Engineer Name Role Phone Luis Hatfield MD Primary Care Provider [phone] Active Problems Problem Noted Date Diagnosed Date [...]
--- OUTSIDE RECORDS SUMMARY | 2025-01-02 09:41 | XMS_ITS | Clinical Summary ---
Author Organization [facility] Address [address] [place] [address] Care Team Providers Care Technology Administrator Name Role Phone Luis Hatfield MD Primary Care Provider [phone] Allergies Active Allergy Reactions Criticality Noted Date [...] Encounter [facility] [address] [place] [address] Liliana Parra Malignant neoplasm of urinary bladder, unspecified site (CMS/HCC) Discharge Disposition: Home or Self Care 12/20/2024 Travel 12/02/2024 Telephone [facility] [address] [place] [address] Cecille Escobedo RN 11/26/2024 Telephone [facility] [address] [place] [address] Ochoa Matias MD [facility] 11/01/2024 Telephone [facility] [address] [place] [address] Ochoa Matias MD 10/24/2024 Telephone [facility] [address] [place] [address] Ochoa Matias MD [facility] 10/18/2024 Telephone [facility] [address] [place] [address] Ochoa Matias MD 10/09/2024 1:15 PM EDT Office Visit [facility] Multidisciplinary Oncology Clinic [address] [place] [address] Ochoa Matias MD Malignant neoplasm of urinary bladder, unspecified site (CMS/HCC) (Primary Dx) 10/09/2024 11:30 AM EDT Office Visit [facility] [address] [place] [address] Kristen Bryant, ENTRY LEVEL ACCOUNTING CLERK Malignant neoplasm of urinary bladder, unspecified site (CMS/HCC) (Primary Dx); Bilateral hydronephrosis 10/09/2024 Travel from Last 3 Months Social History Tobacco Use Types Packs/Day Years Used Date Smoking Tobacco: Former Cigarettes 0.1 51.6 S tarted: 1974 Smokeless Tobacco: Never Tobacco [...] any time in the past 12 m [facility], were you homeless or living in a [...] drink first t kimberlyn in the morning (EYE-ASSOCIATE) to steady your nerves or to get [...] Visit [facility] [address] [place] [address] Ochoa Matias MD [address] [place] [address] Health Maintenance Due Date Last Done Comments [facility]-Bone Density Scan 1955 [facility]-Medicare Annual Wellness (AWV) 1955 [facility]-/Child/Adol SDOH Screenings 1955 [id number] Vaccine (#1) 1959 [facility]-DTaP,Tdap,and Td Vaccines (1 [...] this topic Medical Devices Implanted Type Area Textile Engraver Device Identifier Shelf Expiration Date Model / Serial / Lot Stent Ureteral Double Pigtail Pos 6fr 26cm - S. - [id number] Implanted:Qty: 1 on 07/23/2024 by Ochoa Matias MD at [facility] Stent N/A: [id number] 03/11/2026 [id number] / . / [id number] Procedures Procedure Name Priority Date/Time Associated Diagnosis [...] bilateral percutaneous nephrostomy tube exchange using 10 Hungarian locking pigtail drainage catheters. PLAN: Nephrostomy tube [...] for routine bilateral nephrostomy tube exchange. TECHNIQUE: Actuarial Analyst: Sundeep Bowman MD Supervising attending: Liang [...] antisepsis, followed by sterile barrier draping A bead builder film was performed to document the location [...] were no immediate complication. COMPARISON: None. FINDINGS: Passenger Coach Driver images and nephrostograms demonstrate bilateral percutaneous nephrostomy tubes in expected location. COMPLICATION: No. Procedure Note Liang Rodriguez MD - 12/20/2024 CLINICAL INDICATION: 69-year-old female who presents for routine bilateral nephrostomy tubeexchange. TECHNIQUE: Actuarial Analyst: Sundeep Bowman MD Supervising attending: Liang [...] cutaneousantisepsis, followed by sterile barrier draping A bead builder film was performed to document the location [...] there were no immediatecomplication. COMPARISON: None. FINDINGS: Passenger Coach Driver images and nephrostograms demonstrate bilateral percutaneousnephrostomy tubes [...] MD on 12/20/2024 10:50 AM Kristen Bryant ENTRY LEVEL ACCOUNTING CLERK IMG IR PROCEDURES Final Result * CYSTO- [...] type: flexible Cystoscopy route: transurethral Cystoscopy location: [place] bladder Irrigation used: saline Position: supine Urethra [...] Antibody Negative Negative 07/22/2024 9:11 PM EST [facility] Blood Venous blood specimen / Unknown Venipuncture / Unknown 07/22/2024 7:54 PM EST 07/22/2024 8:09 PM EST us Luz [facility] LAB BLOOD ORDERABLES Missy sun Result [facility] [address] [place] [address] from Last 3 Months or Most Recently Relevant to Health Maintenance Insurance [facility] MEDICARE Advance Directives * Full Code [...] Patient has decision-making capacity? Yes Care Teams Technology Administrator Relationship Specialty Start Date End Date Luis Hatfield MD [address] [place] [address] PCP - General 07/24/24
[2025-01-02 09:52] LABS: Hematocrit 33.3 % (37.0-47.0); Hemoglobin 11.3 g/dL (12.2-16.2); Immature Granulocytes % 0.4 %; Mean Corpuscular HGB Conc 33.9 g/dL (31.8-35.4); Mean Corpuscular Hemoglobin 29.9 pg (27.0-31.2); Mean Corpuscular Volume 88.1 fl (81-99); Nucleated Red Blood Cells % 0 %; Platelet Count 386 K/mm3 (142-424); Red Blood Count 3.78 M/mm3 (4.20-5.40); Red Cell Distribution Width-SD 57.1 fL; White Blood Count 6.8 K/mm3 (4.8-10.8)
[2025-01-02 10:01] LABS: Alanine Aminotransferase 15 U/L (12-78); Albumin Level 4.0 g/dl (3.5-5.0); Albumin/Globulin Ratio 1.8 (1.1-1.8); Alkaline Phosphatase 90 U/L (38-126); Anion Gap 11.7 mEq/L (5-15); Aspartate Amino Transferase 37 U/L (14-36); Bilirubin,Total 1.0 mg/dl (0.2-1.3); Blood Urea Nitrogen 7 mg/dl (7-17); Calcium 9.5 mg/dl (8.4-10.2); Carbon Dioxide 26 mmol/L (22.0-30.0); Chloride 100 mmol/L (98-107); Creatinine,Serum 1.00 mg/dl (0.52-1.04); Estimated Glomerular Filt Rate 55 ml/min (>60); GFR (African American) 66 ML/MIN (>60); Globulin 2.2 g/dL (1.3-3.2); Glucose 104 mg/dl (74-100); Potassium 3.7 mmoL/L (3.5-5.1); Sodium 134 mmol/L (136-145); Total Protein,Serum 6.2 g/dl (6.3-8.2)
[2025-01-02 10:31] LABS: Thyroid Stimulating Hormone 0.94 uIU/mL (0.465-4.68)
[2025-01-02] MEDS: PROCHLORPERAZINE 10MG TABLET 10 MG PO (10:58)
[2025-01-02] MEDS: 0.9 % SODIUM CHLORIDE 100 ML IV (10:58)
[2025-01-02] MEDS: SODIUM CHLORIDE 0.9% IV (11:30)
[2025-01-02] MEDS: ENFORTUMAB VEDOTIN EJFV IV (11:30)
[2025-01-02 11:34] VITALS: BP 113/62; PULSE 85; RESP 18; O2SAT 95
[2025-01-02] MEDS: PEMBROLIZUMAB 200 MG in 0.9 % SODIUM CHLORIDE 50 ML 116 MG IV (12:11)
[2025-01-02 12:15] VITALS: BP 134/70; PULSE 87; RESP 18; O2SAT 95
[2025-01-02 12:45] VITALS: RESP 18; O2SAT 95
[2025-01-02 12:52] VITALS: BP 114/58; PULSE 84; RESP 18; O2SAT 95
== END 2025-01-02 12:52 | disposition home or self-care (01) ==
LOC: INF 09:34
PROVIDERS: PCP Family Medicine; Visit Provider Internal Medicine Medical Oncology
DX: Z51.11 Encounter for antineoplastic chemotherapy (principal); C67.9 Malignant neoplasm of bladder, unspecified
CPT/HCPCS: 80053; 82024; 82533; 84443; 85025; 96413; 96417; J9177; J9271; Q0164

== ENCOUNTER 2025-01-09 09:04 | Outpatient (CLI) | payer MEDICARE, SELFPAY ==
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
--- OUTSIDE RECORDS SUMMARY | 2024-12-08 20:00 | XMS_ITS | Clinical Summary ---
Author Organization Unknown Care Team Providers Care Fluoroscope Operator Name Role Phone YANE OSORIO, JONH Unavailable Unavailable LUAN OT, ANNALISA Unavailable Unavailable JOHANA PT, LORENZO Unavailable Unavailable OLVIN PACKAGING DESIGN ENGINEER, CHIQUITA Unavailable Unavailable Payers Payer Name Policy Type Policy Number Effective Date Expira tion Date [employer]UMANMarlon.ANN MARIE.PP[employer].C.AUTH [id number] Problems Condition Name Condition Details Condition Category Status Onset Date Resolution Date Last Treatment Date Treating Clinician Comments I/I REACT D/T NEPHROSTOMY CATHETER, SUBSEQUENT ENCOUNTER Active 09-23 00:00: 00 URINARY TRACT INFECTION, SITE NOT SPECIFIED Active 09-23 00:00: 00 OTH STAPHYLOCOCC US THE CAUSE OF DISEASES CLASSD ELSWHR Active 09-23 00:00: 00 OTHER UROGENITAL CANDIDIASIS Active 09-23 00:00: 00 MALIGNANT NEOPLASM OF BLADDER, UNSPECIFIED Active 09-23 00:00: 00 ANEMIA IN NEOPLASTIC DISEASE Active 09-23 00:00: 00 NAUSEA WITH VOMITING, UNSPECIFIED Active 09-23 00:00: 00 ESSENTIAL (PRIMARY) HYPERTENSION Active - 00:00: 00 HYPERLIPIDEM IA, UNSPECIFIED Active 1- 00:00: 00 SYSTEMIC LUPUS ERYTHEMATOSU S, UNSPECIFIED Active 1- 00:00: 00 RHEUMATOID ARTHRITIS, UNSPECIFIED Active - 00:00: 00 GASTRO-ESOPH AGEAL REFLUX DISEASE WITHOUT ESOPHAGITIS Active 1- 00:00: 00 NICOTINE DEPENDENCE, CIGARETTES, UNCOMPLICATE D Active 1- 00:00: 00 PRESENCE OF UROGENITAL IMPLANTS Active 2-11 00:00: 00 Allergies, Adverse Reactions, Alerts Allergy Name Allergy Type Status Severity Reaction(s) Onset Date Inactive Date Treating Clinician Comments CODEINE Propensity to adverse reactions Active 2024-10 20:57:5 1 Medications Ordered Medication Name Filled Medication Name Start Date Stop Date Current Medication? Ordering Clinician Indication Dosage Frequency Signature (SIG) Comments Components hydroxychlo roquine 200 mg tablet 10-01 00:00: 00 Yes [id number] SLE 1 tablet TWICE DAILY 1 tablet TWICE DAILY (route: oral) Med Classific ation: Anti-Infe ctive Agents bupropion HCl 75 mg tablet 09-27 00:00: 00 Yes [id number] SMOKING CESSATION 1 tablet TWICE DAILY 1 tablet TWICE DAILY (route: oral) Med Classific ation: Central Nervous System Agents ondansetron HCl 4 mg tablet 09-27 00:00: 00 Yes [id number] NAUSEA 1 tablet ONCE EVERY 8 HOURS NEEDED 1 tablet ONCE EVERY 8 HOURS NEEDED (route: oral) Med Classific ation: Gastroint estinal Therapy Agents rosuvastati n 40 mg tablet 09-27 00:00: 00 Yes [id number] CHOLESTEROL 1 tablet DAILY 1 tablet DAILY (route: oral) Med Classific ation: Cardiovas cular Therapy Agents tramadol 50 mg tablet 09-27 00:00: 00 Yes [id number] PAIN 1 tablet EVERY 6 HOURS NEEDED 1 tablet EVERY 6 HOURS NEEDED (route: oral) Med Classific ation: Analgesic , Anti-infl ammatory or Antipyret ic estradiol 0.01% (0.1 mg/gram) vaginal cream 16 00:00: 00 Yes [id number] HORMONE 1 inch VAGINALLY ONCE DAILY FOR 2 WEEKS THEN 3 TIMES 1 inch VAGINALLY ONCE DAILY FOR 2 WEEKS THEN 3 TIMES (route: vaginal) Med Classific ation: Vaginal Products sulfamethox azole 800 mg-trimetho prim 160 mg tablet 14 00:00: 00 Yes [id number] ANTIBIOTIC 1 tablet 2 TIMES DAILY 1 tablet 2 TIMES DAILY (route: oral) Med Classific ation: Anti-Infe ctive Agents sodium chloride 0.9 % injection syringe 09-13 00:00: 00 10-12 00:00 :00 No [id number] Per instruc tions Per instructio ns (route: injection) Med Classific ation: Electroly te Balance-N utritiona l Products hydrocodone 5 mg-acetamin ophen 325 mg tablet 10-31 00:00: 00 Yes [id number] NEEDED FOR PAIN 1-2 tablet EVERY 8 HOURS 1-2 tablet EVERY 8 HOURS (route: oral) Med Classific ation: Analgesic , Anti-infl ammatory or Antipyret ic Vital Signs Vital Name Observation Time Observation Value Commen ts Temperature 2024-11-18 17:08:00.000 97.7 [degF] Temperature 2024-11-12 14:53:00.000 97.7 [degF] Temperature 2024-11-05 17:06:00.000 97.7 [degF] Temperature 2024-10-19 09:39:00.000 97.7 [degF] Temperature 2024-10-16 17:04:00.000 97.6 [degF] Temperature 2024-10-12 15:55:00.000 97.6 [degF] BMI (%) 2024-10-12 15:55:00.000 29 kg/m2 Height 2024-10-12 15:55:00.000 62 [in_us] Pulse 2024-12-09 14:34:00.000 88 /min Pulse 2024-11-18 17:08:00.000 98 /min Pulse 2024-11-12 14:53:00.000 96 /min Pulse 2024-11-05 17:06:00.000 96 /min Pulse 2024-10-19 09:39:00.000 88 /min Pulse 2024-10-16 17:04:00.000 90 /min Pulse 2024-10-12 15:55:00.000 101 /min O2 Saturation (%) 2024-12-09 14:34:00.000 94 % O2 Saturation (%) 2024-11-18 17:08:00.000 95 % O2 Saturation (%) 2024-11-12 14:53:00.000 96 % O2 Saturation (%) 2024-11-05 17:06:00.000 94 % O2 Saturation (%) 2024-10-19 09:39:00.000 94 % O2 Saturation (%) 2024-10-16 17:04:00.000 96 % O2 Saturation (%) 2024-10-12 15:55:00.000 95 % Respirations 2024-12-09 14:34:00.000 18 /min Respirations 2024-11-18 17:08:00.000 18 /min Respirations 2024-11-12 14:53:00.000 18 /min Respirations 2024-11-05 17:06:00.000 18 /min Respirations 2024-10-19 09:39:00.000 18 /min Respirations 2024-10-16 17:04:00.000 20 /min Respirations 2024-10-12 15:55:00.000 18 /min Weight (lbs) 2024-10-12 15:55:00.000 163 [lb_av] Systolic Blood Pressure 2024-12-09 14:34:00.000 104 mm [Hg] Systolic Blood Pressure 2024-11-18 17:08:00.000 116 mm [Hg] Systolic Blood Pressure 2024-11-12 14:53:00.000 110 mm [Hg] Systolic Blood Pressure 2024-11-05 17:06:00.000 116 mm [Hg] Systolic Blood Pressure 2024-10-19 09:39:00.000 132 mm [Hg] Systolic Blood Pressure 2024-10-16 17:04:00.000 118 mm [Hg] Systolic Blood Pressure 2024-10-12 15:55:00.000 148 mm [Hg] Diastolic Blood Pressure 2024-12-09 14:34:00.000 62 mm [Hg] Diastolic Blood Pressure 2024-11-18 17:08:00.000 70 mm [Hg] Diastolic Blood Pressure 2024-11-12 14:53:00.000 68 mm [Hg] Diastolic Blood Pressure 2024-11-05 17:06:00.000 78 mm [Hg] Diastolic Blood Pressure 2024-10-19 09:39:00.000 68 mm [Hg] Diastolic Blood Pressure 2024-10-16 17:04:00.000 68 mm [Hg] Diastolic Blood Pressure 2024-10-12 15:55:00.000 72 mm [Hg] Plan of Treatment Planned Activity Planned Date Details Comments Future Scheduled Test RN TO OBSE RVE, ASSESS, EVALUATE, AND DEVELOP AN INDIVIDUALIZED PLAN OF CARE. AGENCY MAY ACCEPT ORDERS FROM CONSULTING PHYSICIANS DR DENA HERNANDEZ PCP, DR IQBAL BURGLAR ALARM ASSEMBLER TO OBSERVE AND ASSESS, CIRCULATING NURSE/FOREST PRODUCTS GATHERER TO OBSERVE FOR RISK FOR FALLS AND INSTRUCT IN FALL PREVENTION, HOME SAFETY, MEDICATION MANAGEMENT, INFECTION PREVENTION, AND NUTRITION MANAGEMENT. RN/CIRCULATING NURSE/FOREST PRODUCTS GATHERER NURSE MAY PERFORM O2 SATURATION LEVEL ON ADMISSION AND PRN FOR SOB AND AMS FOR RN TO ASSESS/CIRCULATING NURSE TO OBSERVE PATIENT, WITH NOTIFICATION TO THE PHYSICIAN IF SATURATION IS 90% IN THE ABSENCE OF MORE SPECIFIC PARAMETERS FROM THE PHYSICIAN. AGENCY MAY PERFORM A RESUMPTION OF CARE VISIT FOLLOWING ANY HOSPITAL ADMISSION. RN/CIRCULATING NURSE/FOREST PRODUCTS GATHERER TO MONITOR CO-MORBID CONDITIONS LISTED ON THE PLAN OF CARE AND ANY NEW CONDITIONS THAT PRESENT THEMSELVES DURING THIS EPISODE TO IDENTIFY CHANGES AND INTERVENE TO MINIMIZE COMPLICATIONS. [code = RN TO OBSERVE, ASSESS, EVALUATE, AND DEVELOP AN INDIVIDUALIZED PLAN OF CARE. AGENCY MAY ACCEPT ORDERS FROM CONSULTING PHYSICIANS DR DENA HERNANDEZ PCP, DR IQBAL BURGLAR ALARM ASSEMBLER TO OBSERVE AND ASSESS, CIRCULATING NURSE/FOREST PRODUCTS GATHERER TO OBSERVE FOR RISK FOR FALLS AND INSTRUCT IN FALL PREVENTION, HOME SAFETY, MEDICATION MANAGEMENT, INFECTION PREVENTION, AND NUTRITION MANAGEMENT. RN/CIRCULATING NURSE/FOREST PRODUCTS GATHERER NURSE MAY PERFORM O2 SATURATION LEVEL ON ADMISSION AND PRN FOR SOB AND AMS FOR RN TO ASSESS/CIRCULATING NURSE TO OBSERVE PATIENT, WITH NOTIFICATION TO THE PHYSICIAN IF SATURATION IS 90% IN THE ABSENCE OF MORE SPECIFIC PARAMETERS FROM THE PHYSICIAN. AGENCY MAY PERFORM A RESUMPTION OF CARE VISIT FOLLOWING ANY HOSPITAL ADMISSION. RN/CIRCULATING NURSE/FOREST PRODUCTS GATHERER TO MONITOR CO-MORBID CONDITIONS LISTED ON THE PLAN OF CARE AND ANY NEW CONDITIONS THAT PRESENT THEMSELVES DURING THIS EPISODE TO IDENTIFY CHANGES AND INTERVENE TO MINIMIZE COMPLICATIONS.] Future Scheduled Test MEDICATION MANAGEMENT; RN/CIRCULATING NURSE/FOREST PRODUCTS GATHERER TO REVIEW MEDICATIONS FOR INTERACTIONS, EFFECTIVENESS OF DRUG THERAPY, AND SIGNS/SYMPTOMS OF ADVERSE REACTIONS. MAY INSTRUCT AND REINFORCE MEDICATION TEACHING RELATED TO THE USE OF MEDICATIONS, DOSAGE, FREQUENCY, PURPOSE, SIDE EFFECTS, AND TO REPORT COMPLICATIONS. [code = MEDICATION MANAGEMENT; RN/CIRCULATING NURSE/FOREST PRODUCTS GATHERER TO REVIEW MEDICATIONS FOR INTERACTIONS, EFFECTIVENESS OF DRUG THERAPY, AND SIGNS/SYMPTOMS OF ADVERSE REACTIONS. MAY INSTRUCT AND REINFORCE MEDICATION TEACHING RELATED TO THE USE OF MEDICATIONS, DOSAGE, FREQUENCY, PURPOSE, SIDE EFFECTS, AND TO REPORT COMPLICATIONS.] Future Scheduled Test RISK FOR H OSPITALIZATION; RN TO ASSESS/TEACH, FOREST PRODUCTS GATHERER/CIRCULATING NURSE TO OBSERVE/TEACH PATIENT/CAREGIVER ON RISK FOR HOSPITALIZATION/EMERGENCY ROOM VISITS, TEACH SIGNS AND SYMPTOMS THAT PUT PATIENT AT RISK, WHEN TO NOTIFY NURSE/PHYSICIAN OF COMPLICATIONS/DECLINE, AND WHEN TO CALL 911. [code = RISK FOR HOSPITALIZATION; RN TO ASSESS/TEACH, FOREST PRODUCTS GATHERER/CIRCULATING NURSE TO OBSERVE/TEACH PATIENT/CAREGIVER ON RISK FOR HOSPITALIZATION/EMERGENCY ROOM VISITS, TEACH SIGNS AND SYMPTOMS THAT PUT PATIENT AT RISK, WHEN TO NOTIFY NURSE/PHYSICIAN OF COMPLICATIONS/DECLINE, AND WHEN TO CALL 911.] Future Scheduled Test CARDIOVASC ULAR SYSTEM; RN TO ASSESS/TEACH, CIRCULATING NURSE/FOREST PRODUCTS GATHERER TO OBSERVE/TEACH RELATED TO ALTERED CARDIOVASCULAR STATUS TO MINIMIZE COMPLICATIONS AND REDUCE HOSPITALIZATION. [code = CARDIOVASCULAR SYSTEM; RN TO ASSESS/TEACH, CIRCULATING NURSE/FOREST PRODUCTS GATHERER TO OBSERVE/TEACH RELATED TO ALTERED CARDIOVASCULAR STATUS TO MINIMIZE COMPLICATIONS AND REDUCE HOSPITALIZATION.] Future Scheduled Test HYPERTENSI ON MANAGEMENT; RN TO ASSESS AND TEACH, CIRCULATING NURSE/FOREST PRODUCTS GATHERER TO OBSERVE AND TEACH WARNING SIGNS AND SYMPTOMS TO AVOID HOSPITALIZATION. [code = HYPERTENSION MANAGEMENT; RN TO ASSESS AND TEACH, CIRCULATING NURSE/FOREST PRODUCTS GATHERER TO OBSERVE AND TEACH WARNING SIGNS AND SYMPTOMS TO AVOID HOSPITALIZATION.] Future Scheduled Test RESPIRATOR Y SYSTEM MANAGEMENT; RN TO ASSESS AND TEACH, CIRCULATING NURSE/FOREST PRODUCTS GATHERER TO OBSERVE AND TEACH RELATED TO ALTERED RESPIRATORY STATUS TO MINIMIZE COMPLICATIONS AND REDUCE HOSPITALIZATION. [code = RESPIRATORY SYSTEM MANAGEMENT; RN TO ASSESS AND TEACH, CIRCULATING NURSE/FOREST PRODUCTS GATHERER TO OBSERVE AND TEACH RELATED TO ALTERED RESPIRATORY STATUS TO MINIMIZE COMPLICATIONS AND REDUCE HOSPITALIZATION.] Future Scheduled Test PAIN MANAG EMENT; RN TO ASSESS AND TEACH, FOREST PRODUCTS GATHERER/CIRCULATING NURSE TO OBSERVE AND TEACH AND PROVIDE EDUCATION ON PAIN MANAGEMENT TECHNIQUES. [code = PAIN MANAGEMENT; RN TO ASSESS AND TEACH, FOREST PRODUCTS GATHERER/CIRCULATING NURSE TO OBSERVE AND TEACH AND PROVIDE EDUCATION ON PAIN MANAGEMENT TECHNIQUES.] Future Scheduled Test CANCER MAN AGEMENT; RN TO ASSESS AND TEACH, FOREST PRODUCTS GATHERER/CIRCULATING NURSE TO OBSERVE AND TEACH AND PROVIDE EDUCATION ON CANCER. [code = CANCER MANAGEMENT; RN TO ASSESS AND TEACH, FOREST PRODUCTS GATHERER/CIRCULATING NURSE TO OBSERVE AND TEACH AND PROVIDE EDUCATION ON CANCER.] Future Scheduled Test RN TO ASSE SS AND TEACH, CIRCULATING NURSE/FOREST PRODUCTS GATHERER TO OBSERVE AND TEACH FOR SIGNS AND SYMPTOMS OF SEPSIS AND/OR POST-SEPSIS SYNDROME AND INTERVENE TO MINIMIZE COMPLICATIONS. RN/CIRCULATING NURSE/FOREST PRODUCTS GATHERER TO PROVIDE SKILLED TEACHING TO PATIENT/CAREGIVER ON SEPSIS AND SELF-MANAGEMENT TECHNIQUES. RN/CIRCULATING NURSE/FOREST PRODUCTS GATHERER TO MONITOR PATIENT/CAREGIVER ADHERENCE TO MONITOR AND RECORD VITAL SIGNS INCLUDING TEMPERATURE, HEART RATE, RESPIRATIONS, AND SYMPTOMS. [code = RN TO ASSESS AND TEACH, CIRCULATING NURSE/FOREST PRODUCTS GATHERER TO OBSERVE AND TEACH FOR SIGNS AND SYMPTOMS OF SEPSIS AND/OR POST-SEPSIS SYNDROME AND INTERVENE TO MINIMIZE COMPLICATIONS. RN/CIRCULATING NURSE/FOREST PRODUCTS GATHERER TO PROVIDE SKILLED TEACHING TO PATIENT/CAREGIVER ON SEPSIS AND SELF-MANAGEMENT TECHNIQUES. RN/CIRCULATING NURSE/FOREST PRODUCTS GATHERER TO MONITOR PATIENT/CAREGIVER ADHERENCE TO MONITOR AND RECORD VITAL SIGNS INCLUDING TEMPERATURE, HEART RATE, RESPIRATIONS, AND SYMPTOMS. ] Future Scheduled Test FALL REDUC TION MANAGEMENT; RN TO ASSESS AND OBSERVE, CIRCULATING NURSE/FOREST PRODUCTS GATHERER TO OBSERVE FALL RISK FACTORS AND EDUCATE PATIENT/CAREGIVER ON STRATEGIES TO MINIMIZE THE RISK OF FALLING. [code = FALL REDUCTION MANAGEMENT; RN TO ASSESS AND OBSERVE, CIRCULATING NURSE/FOREST PRODUCTS GATHERER TO OBSERVE FALL RISK FACTORS AND EDUCATE PATIENT/CAREGIVER ON STRATEGIES TO MINIMIZE THE RISK OF FALLING.] Future Scheduled Test PHYSICAL T HERAPIST TO EVALUATE FOR BALANCE STRENGTHENING GAIT TRAINING AND ENDURANCE [code = PHYSICAL THERAPIST TO EVALUATE FOR BALANCE STRENGTHENING GAIT TRAINING AND ENDURANCE ] Future Scheduled Test OCCUPATION AL THERAPIST TO EVALUATE FOR UPPER BODY STRENGTHENING AND ADLS [code = OCCUPATIONAL THERAPIST TO EVALUATE FOR UPPER BODY STRENGTHENING AND ADLS ] Future Scheduled Test AGENCY MAY PERFORM A RESUMPTION OF CARE VISIT FOLLOWING ANY HOSPITAL ADMISSION. OT TO EVALUATE, OBSERVE / ASSESS, AND MONITOR, BAGGAGE SCREENER TO OBSERVE AND MONITOR, PROVIDE SKILLED THERAPEUTIC INTERVENTION, ACTIVITY, EDUCATION, AND TRAINING TO ADDRESS; DEFICITS IN STRENGTH/BALANCE/ENDURANCE, AND TO INCREASE SAFETY AND INDEPENDENCE WITH ADLS, FUNCTIONAL TRANSFERS/MOBILITY, HOME MANAGEMENT TASKS. MD OFFICE OF DR JONH CHE NOTIFIED OF COMPLETION OF OCCUPATIONAL THERAPY EVALUATION AND PLAN OF CARE. BATHING/SHOWERING (OT/BAGGAGE SCREENER) DRESSING (OT/DUSTY) ACTIVITIES OF DAILY LIVING (OT/BAGGAGE SCREENER) MEAL PREPARATION AND CLEANUP (OT/DUSTY) BATH/SHOWER TRANSFER (OT/BAGGAGE SCREENER) HOME ACTIVITY / EXERCISE PROGRAM (OT/DUSTY) POSTURAL CONTROL/BALANCE (OT/DUSTY) OT/BAGGAGE SCREENER MAY EDUCATE ON PAIN MANAGEMENT CLINICALLY INDICATED, INCLUDING NON-PHARMACOLOGICAL PAIN REDUCTION TECHNIQUES AND USE OF CRYOTHERAPY OR HEAT UP TO 20 MIN AT A TIME FOR PAIN MANAGEMENT. OT/BAGGAGE SCREENER TO INSTRUCT PATIENT/CAREGIVER ON RISK FOR HOSPITALIZATION/EMERGENCY ROOM VISITS, TEACH SIGNS AND SYMPTOMS THAT PUT PATIENT AT RISK, WHEN TO NOTIFY NURSE/PHYSICIAN OF COMPLICATIONS/DECLINE, AND WHEN TO CALL 911. OT / BAGGAGE SCREENER TO IDENTIFY FALL RISK FACTORS; EDUCATE THE PATIENT/CAREGIVER ON WAYS TO REDUCE FALL RISK FACTORS AND ESTABLISH HOME EXERCISE PROGRAM TO MINIMIZE FALL RISK. MAY TEACH THE PATIENT FLOOR RECOVERY WHEN CLINICALLY APPROPRIATE. [code = AGENCY MAY PERFORM A RESUMPTION OF CARE VISIT FOLLOWING ANY HOSPITAL ADMISSION. OT TO EVALUATE, OBSERVE / ASSESS, AND MONITOR, BAGGAGE SCREENER TO OBSERVE AND MONITOR, PROVIDE SKILLED THERAPEUTIC INTERVENTION, ACTIVITY, EDUCATION, AND TRAINING TO ADDRESS; DEFICITS IN STRENGTH/BALANCE/ENDURANCE, AND TO INCREASE SAFETY AND INDEPENDENCE WITH ADLS, FUNCTIONAL TRANSFERS/MOBILITY, HOME MANAGEMENT TASKS. MD OFFICE OF DR JONH CHE NOTIFIED OF COMPLETION OF OCCUPATIONAL THERAPY EVALUATION AND PLAN OF CARE. BATHING/SHOWERING (OT/DUSTY) DRESSING (OT/BAGGAGE SCREENER) ACTIVITIES OF DAILY LIVING (OT/DUSTY) MEAL PREPARATION AND CLEANUP (OT/DUSTY) BATH/SHOWER TRANSFER (OT/BAGGAGE SCREENER) HOME ACTIVITY / EXERCISE PROGRAM (OT/DUSTY) POSTURAL CONTROL/BALANCE (OT/DUSTY) OT/BAGGAGE SCREENER MAY EDUCATE ON PAIN MANAGEMENT CLINICALLY INDICATED, INCLUDING NON-PHARMACOLOGICAL PAIN REDUCTION TECHNIQUES AND USE OF CRYOTHERAPY OR HEAT UP TO 20 MIN AT A TIME FOR PAIN MANAGEMENT. OT/BAGGAGE SCREENER TO INSTRUCT PATIENT/CAREGIVER ON RISK FOR HOSPITALIZATION/EMERGENCY ROOM VISITS, TEACH SIGNS AND SYMPTOMS THAT PUT PATIENT AT RISK, WHEN TO NOTIFY NURSE/PHYSICIAN OF COMPLICATIONS/DECLINE, AND WHEN TO CALL 911. OT / BAGGAGE SCREENER TO IDENTIFY FALL RISK FACTORS; EDUCATE THE PATIENT/CAREGIVER ON WAYS TO REDUCE FALL RISK FACTORS AND ESTABLISH HOME EXERCISE PROGRAM TO MINIMIZE FALL RISK. MAY TEACH THE PATIENT FLOOR RECOVERY WHEN CLINICALLY APPROPRIATE.] Goal 2024-12-09 Patient Goal - TO GET STRONG ER Goal Provider Goal - A PLAN OF CARE WILL BE ESTABLISHED THAT MEETS THE PATIENTS NEEDS. PATIENT WILL DEMONSTRATE OXYGEN SATURATION WITHIN NORMAL LIMITS OR PATIENTS OPTIMAL LEVEL ESTABLISHED BY THE PHYSICIAN THROUGHOUT CARE. CHANGES TO CO-MORBID CONDITIONS AND ANY NEW CONDITIONS WILL BE IDENTIFIED AND REPORTED TO THE PHYSICIAN. Goal Provider Goal - PATIENT/CAREGIVER TO VERBALIZE, AND CONSISTENTLY DEMONSTRATE EFFECTIVE, SAFE MANAGEMENT OF MEDICATION INCLUDING KNOWLEDGE OF EFFECTIVENESS, POTENTIAL SIDE EFFECTS AND DRUG REACTIONS AND WHEN TO CONTACT THE APPROPRIATE CARE PROVIDER. PATIENT/CAREGIVER WILL BE ABLE TO VERBALIZE UNDERSTANDING OF MEDICATION REGIMEN AND ACCURATELY TAKE MEDICATIONS PRESCRIBED WITHOUT ADVERSE EFFECTS BY END OF EPISODE Goal Provider Goal - PATIENT/CAREGIVER WILL VERBALIZE UNDERSTANDING OF SIGNS AND SYMPTOMS THAT PUT THE PATIENT AT RISK FOR HOSPITALIZATION /EMERGENCY ROOM VISITS, WHEN TO NOTIFY NURSE/PHYSICIAN OF COMPLICATIONS/DECLINE AND WHEN TO CALL 911. Goal Provider Goal - PATIENT / CAREGIVER WILL VERBALIZE/DEMONSTRATE UNDERSTANDING OF MEASURES TO MANAGE ALTERED CARDIOVASCULAR STATUS BY ENDOFEPISODE. Goal Provider Goal - PATIENT / CAREGIVER WILL VERBALIZE/DEMONSTRATE AN ABILITY TO ADHERE TO SELF-MANAGEMENT OF HTN TO MINIMIZE COMPLICATIONS AND AVOID HOSPITALIZATION BY END OF EPISODE. Goal Provider Goal - PATIENT / CAREGIVER WILL VERBALIZE/DEMONSTRATE UNDERSTANDING OF MEASURES TO MANAGE ALTERED RESPIRATORY STATUS BY END OF EPISODE. Goal Provider Goal - PATIENT / CAREGIVER WILL VERBALIZE / DEMONSTRATE UNDERSTANDING OF PAIN CONTROL MEASURES BY END OF EPISODE Goal Provider Goal - PATIENT / CAREGIVER WILL VERBALIZE/DEMONSTRATE UNDERSTANDING OF MEASURES TO MINIMIZE COMPLICATIONS AND REDUCE HOSPITALIZATION RELATED TO CANCER BY END OF EPISODE. Goal Provider Goal - SIGNS OF SEPSIS WILL BE IDENTIFIED PROMPTLY, AND INTERVENTIONS INITIATED TO MINIMIZE SEVERITY AND RISK OF HOSPITALIZATION. POST-SEPSIS SYNDROME INTERVENTIONS WILL BE REVIEWED WITH THE PATIENT/CAREGIVER, IF APPLICABLE. PATIENT / CAREGIVER WILL VERBALIZE/DEMONSTRATE AN ABILITY TO ADHERE TO SELF-MANAGEMENT AT DISCHARGE BY END OF EPISODE Goal Provider Goal - PATIENT/CAREGIVER WILL VERBALIZE/DEMONSTRATE UNDERSTANDING OF FALL RISK FACTORS AND IMPLEMENT STRATEGIES TO MINIMIZE FALL RISK. PATIENT/CAREGIVER WILL VERBALIZE/DEMONSTRATE AN ABILITY TO ADHERE TO FALL REDUCTION SELF-MANAGEMENT AND LIFE-STYLE CHANGES BY END OF EPISODE Goal Provider Goal - Goal Provider Goal - Goal Provider Goal - OT STG: PATIENT WILL DEMONSTRATE IMPROVED ABILITY TO PERFORM BATHING/SHOWERING AND REDUCE CAREGIVER BURDEN FROM MOD ASSIST TO MAX ASSIST WITHIN 4 WEEKS. OT LTG: PATIENT WILL DEMONSTRATE IMPROVED ABILITY TO PERFORM BATHING/SHOWERING AND REDUCE CAREGIVER BURDEN FROM MOD ASSIST TO INDEPENDENT WITHIN 9 WEEKS. OT STG: PATIENT WILL DEMONSTRATE IMPROVED ABILITY TO PERFORM UPPER BODY DRESSING TO REDUCE CAREGIVER BURDEN FROM CGA TO SBA WITHIN 4 WEEKS. OT LTG: PATIENT WILL DEMONSTRATE IMPROVED ABILITY TO PERFORM UPPER BODY DRESSING TO REDUCE CAREGIVER BURDEN FROM CGA TO INDEPENDENT WITHIN 9 WEEKS. OT STG: PATIENT WILL DEMONSTRATE IMPROVED ABILITY TO PERFORM LOWER BODY DRESSING TO REDUCE CAREGIVER BURDEN FROM MIN ASSIST TO CGA WITHIN 4 WEEKS. OT LTG: PATIENT WILL DEMONSTRATE IMPROVED ABILITY TO PERFORM LOWER BODY DRESSING TO REDUCE CAREGIVER BURDEN FROM MIN ASSIST TO INDEPENDENT WITHIN 9 WEEKS. OT LTG: PATIENT WILL DEMONSTRATE IMPROVEMENT IN MODIFIED MARITZA INDEX SCORE FROM 61 TO 85 INDICATING DECREASED DEPENDENCY ON CAREGIVER ASSISTANCE WITH ACTIVITIES OF DAILY LIVING WITHIN 9 WEEKS. OT STG: PATIENT WILL DEMONSTRATE THE ABILITY TO COMPLETE MEAL PREPARATION AND CLEANUP TO REDUCE CAREGIVER BURDEN FROM MOD ASSIST TO MIN ASSIST WITHIN 4 WEEKS. OT LTG: PATIENT WILL DEMONSTRATE THE ABILITY TO COMPLETE MEAL PREPARATION AND CLEANUP TO REDUCE CAREGIVER BURDEN FROM MOD ASSIST TO INDEPENDENT WITHIN 9 WEEKS. OT STG: PATIENT WILL DEMONSTRATE IMPROVED ABILITY AND SAFETY TO PERFORM BATH/SHOWER TRANSFER FROM DEPENDENT TO MAX ASSIST WITHIN 4 WEEKS. OT LTG: PATIENT WILL DEMONSTRATE IMPROVED ABILITY AND SAFETY TO PERFORM BATH/SHOWER TRANSFER FROM DEPENDENT TO INDEPENDENT WITHIN 9 WEEKS. OT STG: PATIENT WILL COMPLETE HEP OF BUE THER/EX WITH MIN ASSIST WITHIN 4 WEEKS. OT LTG: PATIENT WILL DEMONSTRATE IMPROVED STRENGTH FOR IMPROVED PARTICIPATION IN ADLS EVIDENCED BY IMPROVED RUE MMT FROM 3+/5 TO 4/5, AND LUE MMT FROM 3/5 TO 4/5, WITHIN 9 WEEKS. OT STG: PATIENT WILL DEMONSTRATE IMPROVED POSTURAL CONTROL AND DECREASED FALL RISK EVIDENCED BY AN IMPROVEMENT IN FUNCTIONAL REACH SCORE FROM 6 INCHES TO 8 INCHES WITHIN 4 WEEKS. OT LTG: PATIENT WILL DEMONSTRATE IMPROVED POSTURAL CONTROL AND DECREASED FALL RISK EVIDENCED BY AN IMPROVEMENT IN FUNCTIONAL REACH SCORE FROM 6 INCHES TO 10 INCHES WITHIN 9 WEEKS. OT LTG: PATIENT WILL DEMONSTRATE UNDERSTANDING OF PAIN MANAGEMENT TECHNIQUES EVIDENCED BY REDUCED PAIN. PATIENT/CAREGIVER WILL VERBALIZE UNDERSTANDING OF SIGNS AND SYMPTOMS THAT PUT THE PATIENT AT RISK FOR HOSPITALIZATION /EMERGENCY ROOM VISITS, WHEN TO NOTIFY NURSE/PHYSICIAN OF COMPLICATIONS/DECLINE AND WHEN TO CALL 911. OT LTG: PATIENT/CAREGIVER WILL BE ABLE TO IMPLEMENT RECOMMENDATIONS SPECIFIC TO FALL REDUCTION FOR IMPROVED ADL/IADL COMPLETION AND HOME SAFETY BY END OF EPISODE. Reason for Visit INDEPENDENT IN THE COMMUNITY Encounters Start Date/Time End Date/Time Encounter Type Admission Type Attending [facility] Care Department Encounter ID Discharge Date Discharge Status Discharge Condition Discharge Reason Percent Goals Met 2024-10-12 00:00:00 2024-12-09 00:00:00 Outpatient NEW ADMISSION ANNALISA ROLAND [facility] [id number] 2024-12-09 00:00:00 DISCHARGE TO HOME OR SELF CARE [facility]DEPENDEN T IN THE COMMUNITY HH - GOALS MET 96.30
--- OUTSIDE RECORDS SUMMARY | 2024-12-08 20:00 | XMS_ITS | Clinical Summary ---
Author Organization Unknown Care Team Providers Care Senior Ios Developer Name Role Phone YANE OSORIO, JONH Unavailable Unavailable LUAN OT, ANNALISA Unavailable Unavailable JOHANA PT, LORENZO Unavailable Unavailable OLVIN BIOMETRICS CONSULTANT, CHIQUITA Unavailable Unavailable Payers Payer Name Policy Type Policy Number Effective Date Expira tion Date HUMANMarlon.ANN MARIE.PPO.C.AUTH [id number] Problems Condition Name Condition Details Condition Category [...] 200 mg tablet 10-01 00:00: 00 Yes [id number] SLE 1 tablet TWICE DAILY 1 tablet TWICE DAILY (route: oral) Med Classific ation: Anti-Infe ctive Agents bupropion HCl 75 mg tablet 09-27 00:00: 00 Yes [id number] SMOKING CESSATION 1 tablet TWICE DAILY 1 tablet TWICE DAILY (route: oral) Med Classific ation: Central Nervous System Agents ondansetron HCl 4 mg tablet 09-27 00:00: 00 Yes [id number] NAUSEA 1 tablet ONCE EVERY 8 HOURS NEEDED 1 tablet ONCE EVERY 8 HOURS NEEDED (route: oral) Med Classific ation: Gastroint estinal Therapy Agents rosuvastati n 40 mg tablet 09-27 00:00: 00 Yes [id number] CHOLESTEROL 1 tablet DAILY 1 tablet DAILY (route: oral) Med Classific ation: Cardiovas cular Therapy Agents tramadol 50 mg tablet 09-27 00:00: 00 Yes [id number] PAIN 1 tablet EVERY 6 HOURS NEEDED 1 tablet EVERY 6 HOURS NEEDED (route: oral) Med Classific ation: Analgesic , Anti-infl ammatory or Antipyret ic estradiol 0.01% (0.1 mg/gram) vaginal cream 16 00:00: 00 Yes [id number] HORMONE 1 inch VAGINALLY ONCE DAILY FOR 2 WEEKS THEN 3 TIMES 1 inch VAGINALLY ONCE DAILY FOR 2 WEEKS THEN 3 TIMES (route: vaginal) Med Classific ation: Vaginal Products sulfamethox azole 800 mg-trimetho prim 160 mg tablet 14 00:00: 00 Yes [id number] ANTIBIOTIC 1 tablet 2 TIMES DAILY 1 tablet 2 TIMES DAILY (route: oral) Med Classific ation: Anti-Infe ctive Agents sodium chloride 0.9 % injection syringe 09-13 00:00: 00 10-12 00:00 :00 No [id number] Per instruc tions Per instructio ns (route: injection) Med Classific ation: Electroly te Balance-N utritiona l Products hydrocodone 5 mg-acetamin ophen 325 mg tablet 10-31 00:00: 00 Yes [id number] NEEDED FOR PAIN 1-2 tablet EVERY 8 [...] PHYSICIANS DR DENA HERNANDEZ PCP, DR IQBAL WINDROWER OPERATOR TO OBSERVE AND ASSESS, CLEAT MAKER/ASSURANCE SENIOR MANAGER INSURANCE TO OBSERVE FOR RISK FOR FALLS AND INSTRUCT IN FALL PREVENTION, HOME SAFETY, MEDICATION MANAGEMENT, INFECTION PREVENTION, AND NUTRITION MANAGEMENT. RN/CLEAT MAKER/ASSURANCE SENIOR MANAGER INSURANCE NURSE MAY PERFORM O2 SATURATION LEVEL ON ADMISSION AND PRN FOR SOB AND AMS FOR RN TO ASSESS/CLEAT MAKER TO OBSERVE PATIENT, WITH NOTIFICATION TO THE PHYSICIAN IF SATURATION IS 90% IN THE ABSENCE OF MORE SPECIFIC PARAMETERS FROM THE PHYSICIAN. AGENCY MAY PERFORM A RESUMPTION OF CARE VISIT FOLLOWING ANY HOSPITAL ADMISSION. RN/CLEAT MAKER/ASSURANCE SENIOR MANAGER INSURANCE TO MONITOR CO-MORBID CONDITIONS LISTED ON THE PLAN OF CARE AND ANY NEW CONDITIONS THAT PRESENT THEMSELVES DURING THIS EPISODE TO IDENTIFY CHANGES AND INTERVENE TO MINIMIZE COMPLICATIONS. [code = RN TO OBSERVE, ASSESS, EVALUATE, AND DEVELOP AN INDIVIDUALIZED PLAN OF CARE. AGENCY MAY ACCEPT ORDERS FROM CONSULTING PHYSICIANS DR DENA HERNANDEZ PCP, DR IQBAL WINDROWER OPERATOR TO OBSERVE AND ASSESS, CLEAT MAKER/ASSURANCE SENIOR MANAGER INSURANCE TO OBSERVE FOR RISK FOR FALLS AND INSTRUCT IN FALL PREVENTION, HOME SAFETY, MEDICATION MANAGEMENT, INFECTION PREVENTION, AND NUTRITION MANAGEMENT. RN/CLEAT MAKER/ASSURANCE SENIOR MANAGER INSURANCE NURSE MAY PERFORM O2 SATURATION LEVEL ON ADMISSION AND PRN FOR SOB AND AMS FOR RN TO ASSESS/CLEAT MAKER TO OBSERVE PATIENT, WITH NOTIFICATION TO THE PHYSICIAN IF SATURATION IS 90% IN THE ABSENCE OF MORE SPECIFIC PARAMETERS FROM THE PHYSICIAN. AGENCY MAY PERFORM A RESUMPTION OF CARE VISIT FOLLOWING ANY HOSPITAL ADMISSION. RN/CLEAT MAKER/ASSURANCE SENIOR MANAGER INSURANCE TO MONITOR CO-MORBID CONDITIONS LISTED ON THE PLAN OF CARE AND ANY NEW CONDITIONS THAT PRESENT THEMSELVES DURING THIS EPISODE TO IDENTIFY CHANGES AND INTERVENE TO MINIMIZE COMPLICATIONS.] Future Scheduled Test MEDICATION MANAGEMENT; RN/CLEAT MAKER/ASSURANCE SENIOR MANAGER INSURANCE TO REVIEW MEDICATIONS FOR INTERACTIONS, EFFECTIVENESS OF DRUG THERAPY, AND SIGNS/SYMPTOMS OF ADVERSE REACTIONS. MAY INSTRUCT AND REINFORCE MEDICATION TEACHING RELATED TO THE USE OF MEDICATIONS, DOSAGE, FREQUENCY, PURPOSE, SIDE EFFECTS, AND TO REPORT COMPLICATIONS. [code = MEDICATION MANAGEMENT; RN/CLEAT MAKER/ASSURANCE SENIOR MANAGER INSURANCE TO REVIEW MEDICATIONS FOR INTERACTIONS, EFFECTIVENESS OF DRUG THERAPY, AND SIGNS/SYMPTOMS OF ADVERSE REACTIONS. MAY INSTRUCT AND REINFORCE MEDICATION TEACHING RELATED TO THE USE OF MEDICATIONS, DOSAGE, FREQUENCY, PURPOSE, SIDE EFFECTS, AND TO REPORT COMPLICATIONS.] Future Scheduled Test RISK FOR H OSPITALIZATION; RN TO ASSESS/TEACH, ASSURANCE SENIOR MANAGER INSURANCE/CLEAT MAKER TO OBSERVE/TEACH PATIENT/CAREGIVER ON RISK FOR HOSPITALIZATION/EMERGENCY ROOM VISITS, TEACH SIGNS AND SYMPTOMS THAT PUT PATIENT AT RISK, WHEN TO NOTIFY NURSE/PHYSICIAN OF COMPLICATIONS/DECLINE, AND WHEN TO CALL 911. [code = RISK FOR HOSPITALIZATION; RN TO ASSESS/TEACH, ASSURANCE SENIOR MANAGER INSURANCE/CLEAT MAKER TO OBSERVE/TEACH PATIENT/CAREGIVER ON RISK FOR HOSPITALIZATION/EMERGENCY ROOM VISITS, TEACH SIGNS AND SYMPTOMS THAT PUT PATIENT AT RISK, WHEN TO NOTIFY NURSE/PHYSICIAN OF COMPLICATIONS/DECLINE, AND WHEN TO CALL 911.] Future Scheduled Test CARDIOVASC ULAR SYSTEM; RN TO ASSESS/TEACH, CLEAT MAKER/ASSURANCE SENIOR MANAGER INSURANCE TO OBSERVE/TEACH RELATED TO ALTERED CARDIOVASCULAR STATUS TO MINIMIZE COMPLICATIONS AND REDUCE HOSPITALIZATION. [code = CARDIOVASCULAR SYSTEM; RN TO ASSESS/TEACH, CLEAT MAKER/ASSURANCE SENIOR MANAGER INSURANCE TO OBSERVE/TEACH RELATED TO ALTERED CARDIOVASCULAR STATUS TO MINIMIZE COMPLICATIONS AND REDUCE HOSPITALIZATION.] Future Scheduled Test HYPERTENSI ON MANAGEMENT; RN TO ASSESS AND TEACH, CLEAT MAKER/ASSURANCE SENIOR MANAGER INSURANCE TO OBSERVE AND TEACH WARNING SIGNS AND SYMPTOMS TO AVOID HOSPITALIZATION. [code = HYPERTENSION MANAGEMENT; RN TO ASSESS AND TEACH, CLEAT MAKER/ASSURANCE SENIOR MANAGER INSURANCE TO OBSERVE AND TEACH WARNING SIGNS AND SYMPTOMS TO AVOID HOSPITALIZATION.] Future Scheduled Test RESPIRATOR Y SYSTEM MANAGEMENT; RN TO ASSESS AND TEACH, CLEAT MAKER/ASSURANCE SENIOR MANAGER INSURANCE TO OBSERVE AND TEACH RELATED TO ALTERED RESPIRATORY STATUS TO MINIMIZE COMPLICATIONS AND REDUCE HOSPITALIZATION. [code = RESPIRATORY SYSTEM MANAGEMENT; RN TO ASSESS AND TEACH, CLEAT MAKER/ASSURANCE SENIOR MANAGER INSURANCE TO OBSERVE AND TEACH RELATED TO ALTERED RESPIRATORY STATUS TO MINIMIZE COMPLICATIONS AND REDUCE HOSPITALIZATION.] Future Scheduled Test PAIN MANAG EMENT; RN TO ASSESS AND TEACH, ASSURANCE SENIOR MANAGER INSURANCE/CLEAT MAKER TO OBSERVE AND TEACH AND PROVIDE EDUCATION ON PAIN MANAGEMENT TECHNIQUES. [code = PAIN MANAGEMENT; RN TO ASSESS AND TEACH, ASSURANCE SENIOR MANAGER INSURANCE/CLEAT MAKER TO OBSERVE AND TEACH AND PROVIDE EDUCATION ON PAIN MANAGEMENT TECHNIQUES.] Future Scheduled Test CANCER MAN AGEMENT; RN TO ASSESS AND TEACH, ASSURANCE SENIOR MANAGER INSURANCE/CLEAT MAKER TO OBSERVE AND TEACH AND PROVIDE EDUCATION ON CANCER. [code = CANCER MANAGEMENT; RN TO ASSESS AND TEACH, ASSURANCE SENIOR MANAGER INSURANCE/CLEAT MAKER TO OBSERVE AND TEACH AND PROVIDE EDUCATION ON CANCER.] Future Scheduled Test RN TO ASSE SS AND TEACH, CLEAT MAKER/ASSURANCE SENIOR MANAGER INSURANCE TO OBSERVE AND TEACH FOR SIGNS AND SYMPTOMS OF SEPSIS AND/OR POST-SEPSIS SYNDROME AND INTERVENE TO MINIMIZE COMPLICATIONS. RN/CLEAT MAKER/ASSURANCE SENIOR MANAGER INSURANCE TO PROVIDE SKILLED TEACHING TO PATIENT/CAREGIVER ON SEPSIS AND SELF-MANAGEMENT TECHNIQUES. RN/CLEAT MAKER/ASSURANCE SENIOR MANAGER INSURANCE TO MONITOR PATIENT/CAREGIVER ADHERENCE TO MONITOR AND RECORD VITAL SIGNS INCLUDING TEMPERATURE, HEART RATE, RESPIRATIONS, AND SYMPTOMS. [code = RN TO ASSESS AND TEACH, CLEAT MAKER/ASSURANCE SENIOR MANAGER INSURANCE TO OBSERVE AND TEACH FOR SIGNS AND SYMPTOMS OF SEPSIS AND/OR POST-SEPSIS SYNDROME AND INTERVENE TO MINIMIZE COMPLICATIONS. RN/CLEAT MAKER/ASSURANCE SENIOR MANAGER INSURANCE TO PROVIDE SKILLED TEACHING TO PATIENT/CAREGIVER ON SEPSIS AND SELF-MANAGEMENT TECHNIQUES. RN/CLEAT MAKER/ASSURANCE SENIOR MANAGER INSURANCE TO MONITOR PATIENT/CAREGIVER ADHERENCE TO MONITOR AND RECORD VITAL SIGNS INCLUDING TEMPERATURE, HEART RATE, RESPIRATIONS, AND SYMPTOMS. ] Future Scheduled Test FALL REDUC TION MANAGEMENT; RN TO ASSESS AND OBSERVE, CLEAT MAKER/ASSURANCE SENIOR MANAGER INSURANCE TO OBSERVE FALL RISK FACTORS AND EDUCATE PATIENT/CAREGIVER ON STRATEGIES TO MINIMIZE THE RISK OF FALLING. [code = FALL REDUCTION MANAGEMENT; RN TO ASSESS AND OBSERVE, CLEAT MAKER/ASSURANCE SENIOR MANAGER INSURANCE TO OBSERVE FALL RISK FACTORS AND EDUCATE [...] TO EVALUATE, OBSERVE / ASSESS, AND MONITOR, STRAW HAT BRUSHER TO OBSERVE AND MONITOR, PROVIDE SKILLED THERAPEUTIC INTERVENTION, ACTIVITY, EDUCATION, AND TRAINING TO ADDRESS; DEFICITS IN STRENGTH/BALANCE/ENDURANCE, AND TO INCREASE SAFETY AND INDEPENDENCE WITH ADLS, FUNCTIONAL TRANSFERS/MOBILITY, HOME MANAGEMENT TASKS. MD OFFICE OF DR JONH CHE NOTIFIED OF COMPLETION OF OCCUPATIONAL THERAPY EVALUATION AND PLAN OF CARE. BATHING/SHOWERING (OT/STRAW HAT BRUSHER) DRESSING (OT/DUSTY) ACTIVITIES OF DAILY LIVING (OT/STRAW HAT BRUSHER) MEAL PREPARATION AND CLEANUP (OT/DUSTY) BATH/SHOWER TRANSFER (OT/STRAW HAT BRUSHER) HOME ACTIVITY / EXERCISE PROGRAM (OT/DUSTY) POSTURAL CONTROL/BALANCE (OT/DUSTY) OT/STRAW HAT BRUSHER MAY EDUCATE ON PAIN MANAGEMENT CLINICALLY INDICATED, INCLUDING NON-PHARMACOLOGICAL PAIN REDUCTION TECHNIQUES AND USE OF CRYOTHERAPY OR HEAT UP TO 20 MIN AT A TIME FOR PAIN MANAGEMENT. OT/STRAW HAT BRUSHER TO INSTRUCT PATIENT/CAREGIVER ON RISK FOR HOSPITALIZATION/EMERGENCY ROOM VISITS, TEACH SIGNS AND SYMPTOMS THAT PUT PATIENT AT RISK, WHEN TO NOTIFY NURSE/PHYSICIAN OF COMPLICATIONS/DECLINE, AND WHEN TO CALL 911. OT / STRAW HAT BRUSHER TO IDENTIFY FALL RISK FACTORS; EDUCATE THE PATIENT/CAREGIVER ON WAYS TO REDUCE FALL RISK FACTORS AND ESTABLISH HOME EXERCISE PROGRAM TO MINIMIZE FALL RISK. MAY TEACH THE PATIENT FLOOR RECOVERY WHEN CLINICALLY APPROPRIATE. [code = AGENCY MAY PERFORM A RESUMPTION OF CARE VISIT FOLLOWING ANY HOSPITAL ADMISSION. OT TO EVALUATE, OBSERVE / ASSESS, AND MONITOR, STRAW HAT BRUSHER TO OBSERVE AND MONITOR, PROVIDE SKILLED THERAPEUTIC INTERVENTION, ACTIVITY, EDUCATION, AND TRAINING TO ADDRESS; DEFICITS IN STRENGTH/BALANCE/ENDURANCE, AND TO INCREASE SAFETY AND INDEPENDENCE WITH ADLS, FUNCTIONAL TRANSFERS/MOBILITY, HOME MANAGEMENT TASKS. MD OFFICE OF DR JONH CHE NOTIFIED OF COMPLETION OF OCCUPATIONAL THERAPY EVALUATION AND PLAN OF CARE. BATHING/SHOWERING (OT/DUSTY) DRESSING (OT/STRAW HAT BRUSHER) ACTIVITIES OF DAILY LIVING (OT/DUSTY) MEAL PREPARATION AND CLEANUP (OT/DUSTY) BATH/SHOWER TRANSFER (OT/STRAW HAT BRUSHER) HOME ACTIVITY / EXERCISE PROGRAM (OT/DUSTY) POSTURAL CONTROL/BALANCE (OT/DUSTY) OT/STRAW HAT BRUSHER MAY EDUCATE ON PAIN MANAGEMENT CLINICALLY INDICATED, INCLUDING NON-PHARMACOLOGICAL PAIN REDUCTION TECHNIQUES AND USE OF CRYOTHERAPY OR HEAT UP TO 20 MIN AT A TIME FOR PAIN MANAGEMENT. OT/STRAW HAT BRUSHER TO INSTRUCT PATIENT/CAREGIVER ON RISK FOR HOSPITALIZATION/EMERGENCY ROOM VISITS, TEACH SIGNS AND SYMPTOMS THAT PUT PATIENT AT RISK, WHEN TO NOTIFY NURSE/PHYSICIAN OF COMPLICATIONS/DECLINE, AND WHEN TO CALL 911. OT / STRAW HAT BRUSHER TO IDENTIFY FALL RISK FACTORS; EDUCATE THE [...] End Date/Time Encounter Type Admission Type Attending [facility] Care Department Encounter ID Discharge Date Discharge Status Discharge Condition Discharge Reason Percent Goals Met 2024-10-12 00:00:00 2024-12-09 00:00:00 Outpatient NEW ADMISSION ANNALISA ROLAND [facility] [id number] 2024-12-09 00:00:00 DISCHARGE TO HOME OR SELF CARE INDEPENDEN T IN THE COMM[facility]ITY HH - GOALS MET 96.30
--- OUTSIDE RECORDS SUMMARY | 2024-12-20 07:18 | XMS_ITS | Encounter Summary ---
Author Organization [facility] Address [address] [place] [address] Care Team Providers Care Radio Survey Worker Name Role Phone Luis Hatfield MD Primary Care Provider [phone] Reason for Referral * Imaging (Routine) - Closed Specialty Diagnoses / Procedures Referred By Stephen parks Referred To Contact Radiology Diagnoses Malignant neoplasm of urinary bladder, unspecified site (CMS/HCC) Procedures IR Nephrostomy Tube Exchange Kristen Bryant APRN [address] [place] [address] Phone: tel: fax: Referral ID Status Reason Start Date Expiration Date Visits Re quested Visits Authorized [id number] Closed 10/09/2024 04/10/2026 1 1 Reason for Visit * Imaging (Routine) - Closed Specialty Diagnoses / Procedures Referred By Stephen parks Referred To Contact Radiology Diagnoses Malignant neoplasm of urinary bladder, unspecified site (CMS/HCC) Procedures IR Nephrostomy Tube Exchange Kristen Bryant APRN [address] [place] [address] Phone: tel: fax: Referral ID Status Reason Start Date Expiration Date Visits Re quested Visits Authorized [id number] Closed 10/09/2024 04/10/2026 1 1 Encounter Details Date Type Department Care Team (Latest Contact Info) Description 12/20/2024 7:18 AM EDT - 12/20/2024 11:59 PM EDT Hospital Encounter [facility] Interventional Radiology [address] [place] [address] AidaMihirLiliana Malignant neoplasm of urinary bladder, unspecified [...] drink first t kimberlyn in the morning (EYE-HOTSHOT SUPERINTENDENT) to steady your nerves or to get rid of a hangover? 0 09/11/2024 CAGE Questionnaire Score 0 025 Utilities Answer Date Recorded In the past 12 months has th [employer], gas, oil, or water company threatened to [...] call: Vascular & Interventional Radiology Clinic at [phone] Monday - Monday 8:00 AM to 4:30 PM After hours, weekends, and holidays please call [phone] and ask for the Interventional Radiology provider/Resident on-call For Emergencies please go to the nearest Emergency Room or dial 911. Intervention Radiology Appointments: If you need to reschedule a procedure, please call our Schedulers at [phone], option 4. If you need to schedule or reschedule a clinic appointment, please call [phone]. [facility] Vascular and Interventional Radiology Clinic [address], [address] [place] [address] documented in this encounter Medications at Time [...] from the original note were not included. [id number] Percutaneous Nephrostomy You had a procedure called [...] and warm water or an alcohol-based hand cleaner housekeeping ?? Disposable medical gloves - they do [...] 4. Wipe the skin gently in a [place]. Move away from the drain tube in [...] hands with soap & water or hand cleaner housekeeping and put on a new pair of [...] hands with soap and water or hand cleaner housekeeping. They can also put on a new [...] syringe to the needleless port with a cnsz-fsx-rlxrr motion. ? Flush the tube: Push on [...] your tube from getting blocked. * [facility] Liliana Parra - 12/20/2024 9:46 AM EDT Images from the original note were not included. [id number] Discharge Instructions for Percutaneous Nephrostomy You had [...] symptoms Last Reviewed Date: 2022 00:00:00 ?? [id number] The [employer]. All rights reserved. This information is not [...] been discussed with the patient and/or their underwriting account representative. All questions answered and they [...] 10 mL 10 mL Intravenous q12h Sundeep Bowmna MD And sodium chloride 0.9 % flush [...] had enough tubes placed 09/12/2024 with 8 [place]an bilaterally. Shedoes not report any symptoms or [...] 93%. Results Review {Vanishing Link Review Results :[id number] I have reviewed the latest lab and [...] [facility] [address] [place] [address] Ochoa Matias MD [address] [place] [address] documented as of this encounter Procedures Procedure [...] bilateral percutaneous nephrostomy tube exchange using 10 [place] locking pigtail drainage catheters. PLAN: Nephrostomy tube [...] for routine bilateral nephrostomy tube exchange. TECHNIQUE: Audiovisual Aids Technician: Sundeep Bowman MD Supervising attending: Liang Rodriguez [...] antisepsis, followed by sterile barrier draping A electron beam operator film was performed to document the location [...] were no immediate complication. COMPARISON: None. FINDINGS: Boat Hand images and nephrostograms demonstrate bilateral percutaneous nephrostomy tubes in expected location. COMPLICATION: No. Procedure Note Liang Rodriguez MD - 12/20/2024 CLINICAL INDICATION: 69-year-old female who presents for routine bilateral nephrostomy tubeexchange. TECHNIQUE: Audiovisual Aids Technician: Sundeep Bowman MD Supervising attending: Liang Rodriguez [...] cutaneousantisepsis, followed by sterile barrier draping A electron beam operator film was performed to document the location [...] there were no immediatecomplication. COMPARISON: None. FINDINGS: Boat Hand images and nephrostograms demonstrate bilateral percutaneousnephrostomy tubes [...] on 12/20/2024 10:50 AM Kristen Donovan Manny RADIAL DRILL OPERATOR IMG IR PROCEDURES Final Result documented in [...] documented as of this encounter Care Teams Radio Survey Worker Relationship Specialty Start Date End Date Luis Hatfield MD [address] [place] [address] PCP - General 07/24/24 documented as of this encounter
--- OUTSIDE RECORDS SUMMARY | 2024-12-26 10:30 | XMS_ITS | Encounter Summary ---
Author Organization [facility] Address [address] [place] [address] Care Team Providers Care Art Sales Consultant Name Role Phone Luis Hatfield MD Primary Care Provider [phone] Reason for Visit * Reason Comments Seropositive rheumatoid arthritis 6 veronica h follow up Encounter Details Date Type Department Care Team (Latest Contact Info) Description 12/26/2024 10:30 AM EDT Office Visit [facility] RHEUMATOLOGY [address] [phone] Nguyen Romero APRN [address] [address] Seropositive rheumatoid arthritis (Primary Dx); Systemic lupus [...] DNA 13.0 (<4.0), Centromere and Chromatin normal, DUKEY RIDER and SCL 70 normal, Christine normal, SSA and SSB normal, total bilirubin 1.4, Glucose 117, CMP was ok otherwise, CCP negative, CRP Normal, RF 110 (<14.0 normal), ESR normal, TSH normal * Medications/treatments/interventions tried include: Tylenol, meloxicam, Advil, CBD oil, Tumeric, Aspirin, Plaquenil, she has seen podiatry (Miky Steele DPM), she has seen maintenance painter apprentice (Dr. Jed Trevino), Ketamine, gabapentin, She has [...] lesion. She brought in medical records from [facility] for us to review. Subjective [...] DNA 13.0 (<4.0), Centromere and Chromatin normal, DUKEY RIDER and SCL 70 normal, Christine normal, SSA and SSB normal, total bilirubin 1.4, Glucose 117, CMP was ok otherwise, CCP negative, CRP Normal, RF 110 (<14.0 normal), ESR normal, TSH normal * Medications/treatments/interventions tried include: Tylenol, meloxicam, Advil, CBD oil, Tumeric, Aspirin, Plaquenil, she has seen podiatry (Miky Steele DPM), she has seen maintenance painter apprentice (Dr. Jed Trevino), Ketamine, gabapentin, She has [...] 06/28/2025) for Dr. Wells. Nguyen Romero APRN [facility] [place] documented in this encounter Plan of Treatment Upcoming Encounters Date Type Department Care Team (Late st Contact Info) Description 07/09/2025 10:45 AM EST Office Visit [facility] RHEUMATOLOGY [address] [place] [phone] Vicente Wells DO [address] [phone] Scheduled Orders Name Type Priority Associated Diagnoses [...] anti-inflammatories documented in this encounter Care Teams Art Sales Consultant Relationship Specialty Start Date End Date Luis Hatfield MD 12[address] [facility] [address] [facility] [address] [place] [address] PCP - General Family Medicine 06/13/24 documented as of this encounter
[2025-01-09 09:06] VITALS: BMI 26.2
--- OUTSIDE RECORDS SUMMARY | 2025-01-09 09:08 | XMS_ITS | Encounter Summary ---
Author Organization [facility] Address [address] [place] [address] Care Team Providers Care Agricultural Lender Name Role Phone Luis Hatfield MD Primary Care Provider [phone] Encounter Details Date Type Department Care Team [...] drink first t kimberlyn in the morning (EYE-ROOF BOLTER) to steady your nerves or to get rid of a hangover? 0 09/11/2024 CAGE Questionnaire Score 0 025 Utilities Answer Date Recorded In the past 12 months has th e [place], gas, oil, or water company threatened to [...] Description 01/15/2025 4:30 PM EDT Office Visit [facility] Multidisciplinary Oncology Clinic [address] [place] [address] Ochoa Matias MD [address] [place] [address] documented as of this encounter Visit Diagnoses [...] documented as of this encounter Care Teams Agricultural Lender Relationship Specialty Start Date End Date Luis Hatfield MD [address] [facility] [address] [place] [address] PCP - General 07/24/24 documented as of this encounter
--- OUTSIDE RECORDS SUMMARY | 2025-01-09 09:08 | XMS_ITS | Encounter Summary ---
Author Organization [facility] Address [address] [place] [address] Care Team Providers Care Ui Software Developer Name Role Phone Luis Hatfield MD Primary Care Provider [phone] Reason for Visit * Reason Onset Date Comments [facility] 11/26/2024 Encounter Details Date Type Department Care Team (Late st Contact Info) Description 11/26/2024 Telephone [facility] [address] [place] [address] Ohcoa Matias MD [address] [place] [address] [facility] Social History Tobacco Use Types [...] living in a detention (including now)? No 09/23/2024 CAGE ASSESSMENT Answer [...] drink first t kimberlyn in the morning (EYE-MEDICAL REPRESENTATIVE) to steady your nerves or to get [...] Description 01/15/2025 4:30 PM EDT Office Visit [facility] Multidisciplinary Oncology Clinic [address] [place] [address] Ochoa Matias MD [address] [facility] [address] [place] [address] documented as of this encounter Visit Diagnoses [...] documented as of this encounter Care Teams Ui Software Developer Relationship Specialty Start Date End Date Luis Hatfield MD [address] [address] PCP - General 07/24/24 documented as of this encounter
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
--- OUTSIDE RECORDS SUMMARY | 2025-01-09 09:08 | XMS_ITS | Clinical Summary ---
Author Organization [facility] Address [address] [place] [address] Care Team Providers Care Mortgage Funder Name Role Phone Luis Hatfield MD Primary Care Provider [phone] Allergies Active Allergy Reactions Criticality Noted Date [...] DNA 13.0 (<4.0), Centromere and Chromatin normal, BARREL ROLLER and SCL 70 normal, Christine normal, SSA and SSB normal, total bilirubin 1.4, Glucose 117, CMP was ok otherwise, CCP negative, CRP Normal, RF 110 (<14.0 normal), ESR normal, TSH normal * Medications/treatments/interventions tried include: Tylenol, meloxicam, Advil, CBD oil, Tumeric, Aspirin, Plaquenil, she has seen podiatry (Miky Steele DPM), she has seen face painter (Dr. Jed Trevino), Ketamine, gabapentin, She [...] DNA 13.0 (<4.0), Centromere and Chromatin normal, BARREL ROLLER and SCL 70 normal, Christine normal, SSA and SSB normal, total bilirubin 1.4, Glucose 117, CMP was ok otherwise, CCP negative, CRP Normal, RF 110 (<14.0 normal), ESR normal, TSH normal * Medications/treatments/interventions tried include: Tylenol, meloxicam, Advil, CBD oil, Tumeric, Aspirin, Plaquenil, she has seen podiatry (Miky Steele DPM), she has seen face painter (Dr. Jed Trevino), Ketamine, gabapentin, She [...] DNA 13.0 (<4.0), Centromere and Chromatin normal, BARREL ROLLER and SCL 70 normal, Christine normal, SSA and SSB normal, total bilirubin 1.4, Glucose 117, CMP was ok otherwise, CCP negative, CRP Normal, RF 110 (<14.0 normal), ESR normal, TSH normal * Medications/treatments/interventions tried include: Tylenol, meloxicam, Advil, CBD oil, Tumeric, Aspirin, Plaquenil, she has seen podiatry (Miky Steele DPM), she has seen face painter (Dr. Jed Trevino), Ketamine, gabapentin, She [...] 12/26/2024 10:30 AM EDT Office Visit [facility] [address] [address] Nguyen Romero APRN Seropositive rheumatoid arthritis (Primary Dx); Systemic lupus erythematosus, unspecified SLE type, unspecified organ involvement status; High risk medication use; Primary osteoarthritis involving multiple joints; NSAID long-term use 12/26/2024 Results Follow-Up [facility] [address] [address] Vicente Wells, 12/26/2024 Results Follow-Up [facility] [address] [address] Vicente Wells, 12/26/2024 Travel from [...] Office Visit [facility] [address] [place] [address] Vicente Wells DO [address] [facility] [address] [place] [address] Health Maintenance Due Date Last Done Comments [...] Insurance [employer] PPO Care Teams Mortgage Funder Relationship Specialty Start Date End Date Luis Hatfield MD [address] [place] [facility] [address] [facility] [address] [place] [id number] PCP - General Family Medicine 06/13/24
--- OUTSIDE RECORDS SUMMARY | 2025-01-09 09:08 | XMS_ITS | Encounter Summary ---
Author Organization [facility] Address [address] [place] [address] Care Team Providers Care Rn Assessment Name Role Phone Luis Hatfield MD Primary Care Provider [phone] Encounter Details Date Type Department Care Team (Late Contact Info) Description 12/26/2024 Results Follow-Up [facility] R[facility] [address] [address] Vicente Wells DO [address] [address] Social History Tobacco Use Types Packs/Day Years [...] Description 07/09/2025 10:45 AM EST Office Visit [facility] [address] [address] Vicente Wells DO [address] [id number] documented as of this encounter Visit Diagnoses Not on filedocumented in this encounter Care Teams Rn Assessment Relationship Specialty Start Date End Date Luis Hatfield MD [address] [place] [address] PCP - General Family Medicine 06/13/24 documented as of this encounter
--- OUTSIDE RECORDS SUMMARY | 2025-01-09 09:08 | XMS_ITS | Encounter Summary ---
Author Organization Healthcare Address [address] [place] [address] Care Team Providers Care Shell Coremaker Name Role Phone Luis Hatfield MD Primary Care Provider [phone] Encounter Details Date Type Department Care Team (Late st Contact Info) Description 12/02/2024 Telephone [facility] Interventional Radiology [address] [place] [address] Cecille Escobedo RN CH-VASCULAR & INTERVENTIONAL RADIOLOGY [...] in the past 12 m [facility], were you homeless or living in a [...] drink first t kimberlyn in the morning (EYE-GRASS FARMER) to steady your nerves or to get [...] Description 01/15/2025 4:30 PM EDT Office Visit [facility] Multidisciplinary Oncology Clinic [address] [place] [address] Ochoa Matias MD [address] [facility] [address] [place] [address] documented as of this encounter Visit Diagnoses [...] documented as of this encounter Care Teams Shell Coremaker Relationship Specialty Start Date End Date Luis Hatfield MD [address] [address] PCP - General 07/24/24 documented as of this encounter
--- OUTSIDE RECORDS SUMMARY | 2025-01-09 09:08 | XMS_ITS | Encounter Summary ---
Author Organization Healthcare Address [address] [id number] Care Team Providers Care Bobbin Collector Name Role Phone Luis Hatfield MD Primary Care Provider [phone] Encounter Details Date Type Department Care Team (Late st Contact Info) Description 08/19/2024 Lab Requisition [facility] H Lab [address] [place] [address] Ochoa Matias MD [address] [place] [address] Malignant neoplasm of bladder, unspecified (CMS/HCC) Social [...] any time in the past 12 m [facility], were you homeless or living in a group home (including now)? No 07/24/2024 CAGE ASSESSMENT Answer [...] drink first t kimberlyn in the morning (EYE-SCIENTIFIC PROCESS OPERATOR) to steady your nerves or to [...] Description 01/15/2025 4:30 PM EDT Office Visit [facility] Multidisciplinary Oncology Clinic [address] [place] [address] Ochoa Matias MD [address] [place] [address] documented as of this encounter Procedures Procedure [...] name Selwyn Geller 09/05/2024 7:35 AM EDT [facility] Comment:[id number], A3 Test Result see scan 09/05/2024 7:35 AM EDT [facility] See Scanned Result 09/05/2024 7:35 AM EDT [facility] Tissue 07/23/2024 1:18 PM EST 08/19/2024 1:48 PM EDT us Ochoa Matias MD LAB REF LAB BLOOD AND FLUID ORD Final Result [facility] [address] [place] [address] * - AP Miscellaneous Test (07/23/2024 1:18 PM EST) Test name Selwyn Viviane Espinosa 09/09/2024 8:04 AM EDT [facility] Comment:[id number], A3 Test Result see scan 09/09/2024 8:04 AM EDT [facility] See Scanned Result 09/09/2024 8:04 AM EDT [facility] Tissue 07/23/2024 1:18 PM EST 08/19/2024 1:48 PM EDT us Ochoa Matias MD LAB REF LAB BLOOD AND FLUID ORD Final Result [facility] [address] [place] [address] documented in this encounter Visit Diagnoses Diagnosis Malignant neoplasm of bladder, unspecified (CMS/HCC) documented in this encounter Additional Health Concerns Assessment Noted Time A Body Mass Index follow-up plan has been documented for the patient 07/25/2024 1:21 PM EST documented as of this encounter Care Teams Bobbin Collector Relationship Specialty Start Date End Date Luis Hatfield MD [address] [place] [address] PCP - General 07/24/24 documented as of this encounter
--- OUTSIDE RECORDS SUMMARY | 2025-01-09 09:08 | XMS_ITS | Encounter Summary ---
Author Organization [facility] Address [address] [id number] Care Team Providers Care Hoist Operator Name Role Phone Luis Hatfield MD Primary Care Provider [phone] Encounter Details Date Type Department Care Team ([facility] Contact Info) Description 07/12/2024 Telephone [facility] RHEUMATOLOGY [address] [address] Santiago Anders MD [address] [phone] Social History Tobacco Use Types Packs/Day Years [...] Description 07/09/2025 10:45 AM EST Office Visit [facility] RHEUMATOLOGY [address] [address] Vicente Wells DO [address] [address] documented as of this encounter Visit Diagnoses Not on filedocumented in this encounter Care Teams Hoist Operator Relationship Specialty Start Date End Date Luis Hatfield MD [address] [facility] [address] [place] [address] PCP - General Family Medicine 06/13/24 documented as of this encounter
--- OUTSIDE RECORDS SUMMARY | 2025-01-09 09:08 | XMS_ITS | Encounter Summary ---
Author Organization [facility] Address [address] [id number] Care Team Providers Care Interactive Media Specialist Name Role Phone Luis Hatfield MD Primary Care Provider [phone] Encounter Details Date Type Department Care Team (Late Contact Info) Description 07/12/2024 Telephone [facility] RHEUMATOLOGY [address] [address] Vicente Wells DO [address] [phone] Social History Tobacco Use Types Packs/Day Years [...] Description 07/09/2025 10:45 AM EST Office Visit [facility] RHEUMATOLOGY [address] [address] Vicente Wells DO [address] [phone] documented as of this encounter Visit Diagnoses Not on filedocumented in this encounter Care Teams Interactive Media Specialist Relationship Specialty Start Date End Date Luis Hatfield MD [address] [facility] [address] [place] [address] PCP - General Family Medicine 06/13/24 documented as of this encounter
--- OUTSIDE RECORDS SUMMARY | 2025-01-09 09:09 | XMS_ITS | Encounter Summary ---
Author Organization [facility] Address [address] [id number] Care Team Providers Care Machine Bender Name Role Phone Luis Hatfield MD Primary Care Provider [phone] Encounter Details Date Type Department Care Team [...] Description 07/09/2025 10:45 AM EST Office Visit [facility] RHEUMATOLOGY [address] [address] Vicente Wells DO [address] [address] documented as of this encounter Visit Diagnoses Not on filedocumented in this encounter Care Teams Machine Bender Relationship Specialty Start Date End Date Luis Hatfield MD [address] [facility] [address] [place] [address] PCP - General Family Medicine 06/13/24 documented as of this encounter
--- OUTSIDE RECORDS SUMMARY | 2025-01-09 09:09 | XMS_ITS | Encounter Summary ---
Author Organization [facility] Address [address] [place] [address] Care Team Providers Care Compo Caster Name Role Phone Luis Hatfield MD Primary Care Provider [phone] Encounter Details Date Type Department Care Team (Late Contact Info) Description 12/26/2024 Results Follow-Up [facility] RHEUM[facility]OLOG[facility] [address] [address] Vicente Wells DO [address] [address] Social History Tobacco Use Types Packs/Day Years [...] Office Visit [facility] [address] [address] Vicente Wells DO [address] [phone] documented as of this encounter Visit Diagnoses Not on filedocumented in this encounter Care Teams Compo Caster Relationship Specialty Start Date End Date Luis Hatfield MD [address] [place] [address] [place] [address] PCP - General Family Medicine 06/13/24 documented as of this encounter
--- OUTSIDE RECORDS SUMMARY | 2025-01-09 09:10 | XMS_ITS ---
Author Organization [facility] Address [address] [place] [address] Care Team Providers Care Care Consultant Name Role Phone Luis Hatfield MD Primary Care Provider [phone] Active Problems Problem Noted Date Diagnosed Date [...]
--- OUTSIDE RECORDS SUMMARY | 2025-01-09 09:10 | XMS_ITS | Clinical Summary ---
Author Organization [facility] Address [address] [place] [address] Care Team Providers Care Dispensing Optician Apprentice Name Role Phone Luis Hatfield MD Primary Care Provider [phone] Allergies Active Allergy Reactions Criticality Noted Date [...] Encounter [facility] Interventional Radiology [address] [place] [address] Liliana Parra Malignant neoplasm of urinary bladder, unspecified site (CMS/HCC) Discharge Disposition: Home or Self Care 12/20/2024 Travel 12/02/2024 Telephone [facility] Interventional Radiology [address] [place] [address] Cecille Escobedo RN 11/26/2024 Telephone [facility] Multidisciplinary Oncology Clinic [address] [place] [address] Ochoa Matias MD [facility] 11/01/2024 Telephone [facility] Multidisciplinary Oncology Clinic [address] [place] [address] Ochoa Matias MD 10/24/2024 Telephone [facility] Mult[facility]isciplinary Oncology Clinic [address] [place] [address] Ochoa Matias MD [facility] 10/18/2024 Telephone [facility] Multidisciplinary Oncology Clinic [address] [place] [address] Ochoa Matias MD 10/09/2024 1:15 PM EDT Office Visit [facility] Multidisciplinary Oncology Clinic [address] [place] [address] Ochoa Matias MD Malignant neoplasm of urinary bladder, unspecified site (CMS/HCC) (Primary Dx) 10/09/2024 11:30 AM EDT Office Visit [facility] Interventional Radiology [address] [place] [address] Kristen Bryant, GLOVE SEWER Malignant neoplasm of urinary bladder, unspecified site [...] any time in the past 12 m [facility], were you homeless or [...] drink first t kimberlyn in the morning (EYE-THERAPEUTIC ACTIVITIES SERVICES WORKER) to steady your nerves or to get [...] Visit [facility] Multidisciplinary Oncology Clinic [address] [place] [address] Ochoa Matias MD [address] [place] [address] Health Maintenance Due Date Last Done Comments [facility]-Bone Density Scan 1954 [facility]-Medicare Annual Wellness (AWV) 1954 [facility]-/Child/Adol SDOH Screenings 1954 [id number] Vaccine (#1) 1959 [facility]-DTaP,Tdap,and Td Vaccines (1 [...] this topic Medical Devices Implanted Type Area School Lunch Monitor Device Identifier Shelf Expiration Date Model / Serial / Lot Stent Ureteral Double Pigtail Pos 6fr 26cm - S. - [id number] Implanted:Qty: 1 on 07/23/2024 by Ochoa Matias MD at [facility] Stent N/A: [id number] 03/11/2026 [id number] / . / [id number] Procedures Procedure Name Priority Date/Time Associated Diagnosis [...] bilateral percutaneous nephrostomy tube exchange using 10 Azeri locking pigtail drainage catheters. PLAN: Nephrostomy tube [...] for routine bilateral nephrostomy tube exchange. TECHNIQUE: Cleaner Assistant: Sundeep Bowman MD Supervising attending: Liang Rodriguez [...] antisepsis, followed by sterile barrier draping A experimental electronics developer film was performed to document the location [...] were no immediate complication. COMPARISON: None. FINDINGS: Skip Hoist Engineer images and nephrostograms demonstrate bilateral percutaneous nephrostomy tubes in expected location. COMPLICATION: No. Procedure Note Liang Rodriguez MD - 12/20/2024 CLINICAL INDICATION: 69-year-old female who presents for routine bilateral nephrostomy tubeexchange. TECHNIQUE: Cleaner Assistant: Sundeep Bowman MD Supervising attending: Liang Rodriguez [...] cutaneousantisepsis, followed by sterile barrier draping A experimental electronics developer film was performed to document the location [...] there were no immediatecomplication. COMPARISON: None. FINDINGS: Skip Hoist Engineer images and nephrostograms demonstrate bilateral percutaneousnephrostomy tubes [...] MD on 12/20/2024 10:50 AM Kristen Bryant GLOVE SEWER IMG IR PROCEDURES Final Result * CYSTO- [...] type: flexible Cystoscopy route: transurethral Cystoscopy location: [place] bladder Irrigation used: saline Position: supine Urethra [...] Antibody Negative Negative 07/22/2024 9:11 PM EST [facility] Blood Venous blood specimen / Unknown Venipuncture / Unknown 07/22/2024 7:54 PM EST 07/22/2024 8:09 PM EST us Luz MCCABE LAB BLOOD ORDERABLES Missy sun Result [facility] [address] [place] [address] from Last 3 Months or Most Recently Relevant to Health Maintenance Insurance [facility] MEDICARE Advance Directives * Full Code [...] Patient has decision-making capacity? Yes Care Teams Dispensing Optician Apprentice Relationship Specialty Start Date End Date Luis Hatfield MD [address] [place] [address] PCP - General 07/24/24
[2025-01-09 09:26] LABS: Hematocrit 37.5 % (37.0-47.0); Hemoglobin 12.9 g/dL (12.2-16.2); Immature Granulocytes % 0.6 %; Mean Corpuscular HGB Conc 34.4 g/dL (31.8-35.4); Mean Corpuscular Hemoglobin 30.3 pg (27.0-31.2); Mean Corpuscular Volume 88.0 fl (81-99); Nucleated Red Blood Cells % 0 %; Platelet Count 325 K/mm3 (142-424); Red Blood Count 4.26 M/mm3 (4.20-5.40); Red Cell Distribution Width-SD 55.0 fL; White Blood Count 9.7 K/mm3 (4.8-10.8)
[2025-01-09 09:37] LABS: Alanine Aminotransferase 15 U/L (12-78); Albumin Level 4.1 g/dl (3.5-5.0); Albumin/Globulin Ratio 1.7 (1.1-1.8); Alkaline Phosphatase 87 U/L (38-126); Anion Gap 9.8 mEq/L (5-15); Aspartate Amino Transferase 33 U/L (14-36); Bilirubin,Total 1.0 mg/dl (0.2-1.3); Blood Urea Nitrogen 12 mg/dl (7-17); Calcium 10.2 mg/dl (8.4-10.2); Carbon Dioxide 29 mmol/L (22.0-30.0); Chloride 99 mmol/L (98-107); Creatinine Clearance Estimated 54 mL/min (50-200); Creatinine,Serum 0.90 mg/dl (0.52-1.04); Estimated Glomerular Filt Rate 62 ml/min (>60); GFR (African American) 75 ML/MIN (>60); Globulin 2.4 g/dL (1.3-3.2); Glucose 109 mg/dl (74-100); Potassium 3.8 mmoL/L (3.5-5.1); Sodium 134 mmol/L (136-145); Total Protein,Serum 6.5 g/dl (6.3-8.2)
[2025-01-09] MEDS: PROCHLORPERAZINE 10MG TABLET 10 MG PO (09:45)
[2025-01-09] MEDS: ENFORTUMAB VEDOTIN EJFV IV (10:16)
[2025-01-09] MEDS: SODIUM CHLORIDE 0.9% IV (10:16)
[2025-01-09 10:20] VITALS: BP 121/68; PULSE 92; RESP 18; O2SAT 96
[2025-01-09 10:33] LABS: Thyroid Stimulating Hormone 1.07 uIU/mL (0.465-4.68)
[2025-01-09 11:00] VITALS: BP 132/89; PULSE 99; RESP 18; O2SAT 96
== END 2025-01-09 11:00 | disposition home or self-care (01) ==
LOC: INF 09:04
PROVIDERS: PCP Family Medicine; Visit Provider Internal Medicine Medical Oncology
DX: C67.9 Malignant neoplasm of bladder, unspecified (principal)
CPT/HCPCS: 80053; 84443; 85025; 96413; J9177; Q0164

== ENCOUNTER 2025-01-14 09:24 | Outpatient (CLI) | payer MEDICARE, SELFPAY ==
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
--- OUTSIDE RECORDS SUMMARY | 2024-12-20 07:18 | XMS_ITS | Encounter Summary ---
Author Organization [facility] Address [address] [place] [address] Care Team Providers Care Print Buyer Name Role Phone Luis Hatfield MD Primary Care Provider [phone] Reason for Referral * Imaging (Routine) - Closed Specialty Diagnoses / Procedures Referred By Stephen parks Referred To Contact Radiology Diagnoses Malignant neoplasm of urinary bladder, unspecified site (CMS/HCC) Procedures IR Nephrostomy Tube Exchange Kristen Bryant APRN [address] [place] [address] Phone: tel: fax: Referral ID Status Reason Start Date Expiration Date Visits Re quested Visits Authorized [id number] Closed 10/09/2024 04/10/2026 1 1 Reason for Visit * Imaging (Routine) - Closed Specialty Diagnoses / Procedures Referred By Stephen parks Referred To Contact Radiology Diagnoses Malignant neoplasm of urinary bladder, unspecified site (CMS/HCC) Procedures IR Nephrostomy Tube Exchange Kristen Bryant APRN [address] [place] [address] Phone: tel: fax: Referral ID Status Reason Start Date Expiration Date Visits Re quested Visits Authorized [id number] Closed 10/09/2024 04/10/2026 1 1 Encounter Details Date Type Department Care Team (Latest Contact Info) Description 12/20/2024 7:18 AM EDT - 12/20/2024 11:59 PM EDT Hospital Encounter [facility] Interventional Radiology [address] [place] [address] AidaMihirLiliana Malignant neoplasm of urinary bladder, unspecified site (CMS/HCC) Discharge Disposition: Home or Self Care Social History Tobacco Use Types Packs/Day Years Used Date Smoking Tobacco: Former Cigarettes 0.1 51.6 S tarted: 1974 Smokeless Tobacco: Never Alcohol [...] any time in the past 12 m [facility], were you homeless or living [...] first t kimberlyn in the morning (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 0 09/11/2024 CAGE Questionnaire Score 0 025 Utilities Answer Date Recorded In the past 12 months has th [employer], gas, oil, or water company threatened to [...] Sign Reading Time Taken Comments Blood Pressure 116/92 12/20/2024 9:30 AM EDT Pulse 89 12/20/2024 9:30 AM EDT Temperature 36.4 C (97.5 F) 12/20/2024 9:30 AM EDT Respiratory Rate 13 12/20/2024 9:30 AM EDT Oxygen Saturation 94% 12/20/2024 9:30 AM EDT Inhaled Oxygen Concentration - - Weight 65.6 kg (144 lb 10 oz) 12/20/2024 7:30 AM EDT Height 157.5 cm (5' 2 ) 12/20/2024 7:30 AM EDT Body Mass Index 26.45 12/20/2024 7:30 AM EDT documented in this encounter Discharge Instructions * Discharge Instructions* Liliana Parra - 12/20/2024 9:38 AM EDT *Interventional Radiology* (IR) Questions/Concerns & Appointments If there are questions or concerns after discharge please call: [facility] at [phone] Monday - Monday 8:00 AM to 4:30 PM After hours, weekends, and holidays please call [phone] and ask for the Interventional Radiology provider/Resident on-call For Emergencies please go to the nearest Emergency Room or dial 911. Intervention Radiology Appointments: If you need to reschedule a procedure, please call our Schedulers at [phone], option [phone]. If you need to schedule or reschedule a clinic appointment, please call [phone]. [facility] Inter[facility] Radiology [facility] [address] [place] [address] documented in this encounter Medications at Time of Discharge [...] 1 tablet by mouth in the morning. buPROPion (Wellbutrin) 75 MG tablet Take 1 tablet by mouth 2 times a day. Ferrous Sulfate (IRON PO) Take 1 tablet by mouth daily. ondansetron (Zofran) 4 MG tablet 1 tablet Orally every 8 hours as needed 09/27/2024 rosuvastatin (Crestor) 40 MG tablet Take 1 tablet by mouth 1 time each day. 11/02/2023 Syringe, Disposable, (Syringe 2-3 ML) 3 ML misc 09/13/2024 traMADol (Ultram) 50 MG tablet Take 1 tablet by mouth every 6 hours as needed. 09/27/2024 documented as of this encounter Miscellaneous Notes * Dagoberto BernardoCHER Parra Liliana - 12/20/2024 9:46 AM EDT Images from the original note were not included. [id number] Percutaneous Nephrostomy You had a procedure called [...] leg so that you can walk around. How to Care for Your Nephrostomy Tube Activity ? Don?t lift anything heavier than 10 pounds until your healthcare provider says it?s OK. ? Don't do any strenuous activities, such as mowing the lawn, vacuuming, playing sports, or anything that will cause your tubing to be pulled or moved. ? Slowly increase your activity level with short, frequent walks 3 to 4 times a day. ? Don?t drive while you are still taking pain medicine. Wait until your healthcare provider says it?s OK to drive. Home care ? Eat your normal diet. ? Drink 8 to 12 (8-ounce) cups of liquid each day unless you were told to limit liquids because of another condition. ? Wear loose, comfortable clothes that won?t pull or kink the catheter tube. ? Check your dressing often to make sure the tubing is secure. ? Don?t let the drainage bag hang freely, or it will pull on the catheter. Keep it secured to your leg or hold it temporarily. ? Empty the drainage bag often to keep the weight of the bag from pulling on the catheter. o Empty the bag when it is 1/2 to 2/3 full. o Always empty the bag before you go to bed. o Wash your hands before and after emptying the bag. When do I call the doctor? Skin that is: ?? Red ?? Swollen ?? Tender to the touch ?? Pulled away from the drain tube ?? You have a fever of 101 F or more ?? You have severe pain in your side or pain that was not there before. ?? The fluid in the drain changes color or smells bad or discharge around the catheter. ?? If you have any of the above symptoms, call by the next day (within 24 hours). *If your tube falls out or gets pulled out, and you are actively losing large amounts of blood fromthe site, apply firm pressure to the site with a clean, dry towel for at least 10 minutes. If after10 minutes of firm pressure, you are still soaking the towel, dial 911 or report to the closest Emergency Room for immediate medical attention! What should I expect? It is very important to take care of your nephrostomy tube. This will help prevent infection. The following pages give you detailed instructions on how to change your bandage and clean around the drain tube. It also includes Information on bathing, your antibiotic medicines, and follow up visits. When should I change the bandage? ?? Change the bandage and clean the skin around the drain tube at least once a week. ?? If the bandage gets wet or dirty, change it and clean around the drain tube. Do this even if youjust changed the bandage the day before. How do I change the bandage? You will need a family member or friend to change the dressing for you. You will need these supplies when you change the bandage and clean around the drain tube. ?? Water-proof pads (?chux?) you can throw away ?? Plain soap and warm water or an alcohol-based hand loom cleaner ?? Disposable medical gloves - they do not have to be sterile ?? Gauze pads (4x4s) -- you will need a total of 3 (three) ?? Clean wash cloth ?? Tegaderm ?? Trash bag Step 1. Remove the old bandage. 1. Lie down on your belly or side with the drain tube facing up. Stopcock Flush Adaptor Tube 2. Place the water-proof pad (chux) so that it soaks up any spills as you clean the drain tube area. Stopcock Flush Adaptor Tube 3. The person cleaning the drain tube should wash their hands with soap & water or hand cleanerand put on a new pair of medical gloves. Wash hands and put on gloves. 4. Carefully remove the old bandage. Press on the skin next to the drain tube with one hand and gently remove the tape with the other hand. 5. Throw the old bandage in the trash bag. 6. Check the skin near the tube for signs of infection. See if the skin is: ?? red ?? swollen ?? tender to the touch ?? pulled away from the drain tube If you have any of the above symptoms, call the VIR Clinic by the next day (within 24 hours). Step 2. Cleaning the skin. 1. Hold the drain tube in place while you are cleaning around it so it doesn?t pull out. Carefully hold the drain in place. 2. Wet a gauze 4x4 with soap and water. 3. Start cleaning where the drain tube comes out of the skin. 4. Wipe the skin gently in a [place]. Move away from the drain tube in bigger and bigger circles. Clean the skin carefully. 5. Gently pat the skin with the clean washcloth until it is dry. 6. Put on a fresh bandage. You will need three clean gauze 4x4s and a Tegaderm. ?? Fold one of the gauze in half. ?? Place it under the drain tube. ?? Fold second gauze in half. ?? Place it above the drain tube. ?? Place the third gauze on top of the other two gauze and drain tube. ?? Cover with a Tegaderm. What about the drainage bag? ?? Rinse out the bag two times a week. Use warm soapy water. You may use dish soap. ?? Do not disconnect the drainage bag from the nephrostomy tube, except to rinse the drainage bag. The doctor will change the bag when the nephrostomy tube is replaced. How should I bathe? ?? Don?t take a tub bath or swim or sit in a hot tub while you have a nephrostomy tube. ?? Do take showers, but keep the area around the drain tube dry. Keep it dry by taping a piece of plastic wrap over it or by wrapping plastic wrap around your body to cover it. How do I take antibiotics? ? Your doctor may want you to take an antibiotic. ? Follow the instructions on the antibiotic medicine bottle. ? Make sure you take all of the antibiotic. Don?t stop taking it before you have finished all the pills unless your doctor tells you. When is my follow up visit? ? Your Nephrostomy tube should be changed every 10 to 12 weeks if no other complications arise or as directed by your provider. Write down any questions you have for the doctor and take them with you. ? Make a list of the medicines you are taking and take it with you, or take in the actual medicinesin their original bottles. What if I have problems with the drain tube? If your drain tube is leaking, unscrew the cap. Make sure the black string coming from the drain tube (if there is one) is threaded into the center of the cap. Thread black string carefully into cap to avoid leaks. After this, if the drain tube still leaks, call your doctor within the next 12 hours. How to flush the stopcock: ? The person cleaning the drain tube should wash their hands with soap & water or hand loom cleaner and put on a new pair of medical gloves if they choose to. Wash hands and put on gloves (if wearing gloves). ? Open the package of saline in a syringe. ? Unscrew and remove the cap on the drain tube. Put the cap on a clean surface so that nothing touches the inside of the cap. If anything touches the inside of the cap, germs could get into your drain tube and you could get an infection. Drain tube cap. ? Turn the stopcock on the drain tube to the ?on? position. Turn the stopcock to the ?on? position. ? Slowly push the 10ml of saline solution into the drain tube. Attach syringe and flush drain tube. ? Attach syringe and flush drain tube. ? Turn the stopcock to the ?off? position. Turn the stopcock to the ?off? position. ? Remove the syringe. ? Screw the cap back on the drain tube. Use a new cap if you are not sure the old one is clean. ? Remove your gloves and throw both the syringe and your gloves in the trash. How to Use the Flush Adaptor Tube Please Note: Depending on where your drain site is, your care team might have used a connector for your drain that looks like the one below. It does not have a stopcock. Follow these steps to flush this type of drain tube ? Wash hands: The person cleaning the drain tube should wash their hands with soap and water or hand loom cleaner. They can also put on a new pair of medical gloves if they want to. ? Close the clamp: Close the plastic clamp. This makes sure the fluid goes into the part of the tube that's inside the body - and not straight into the drainage bag. ? Open saline package: Open the package of saline in a syringe. ? Clean the port: Clean the needleless port with an alcohol wipe. If you don't have alcohol wipes, use warm soapy water and a clean cloth. Hold the drain securely with one hand, then scrub the port back and forth for 15 seconds to remove germs. ? Attach the syringe: Attach the syringe to the needleless port with a [id number]-[id number] motion. ? Flush the tube: Push on the end of the saline syringe to flush the fluid through the tube. ? Remove and dispose: Untwist the empty syringe and throw it away. (Next time you flush, use a new syringe.) ? Unclamp the clamp: When you do this, you should see the saline you just flushed flow into the drainage bag. Flushing the tube as ordered by your doctor helps keep your tube from getting blocked. * [facility] Liliana Par[facility] - 12/20/2024 9:46 AM EDT Images from the original note were not included. [id number] Discharge Instructions for Percutaneous Nephrostomy You had [...] symptoms Last Reviewed Date: 2022 00:00:00 ?? 9922-1162 [employer]. All rights reserved. This information is not intended as a substitute for professional medical care. Always follow your healthcare professional's instructions. * Post-Procedure Note - Sundeep Bowman MD - 12/20/2024 9:00 AM EDT Vascular and Interventional Radiology Brief Postprocedure Note Attending: Dr. Rodriguez Primary: Dr. Bowman Pre-operative Diagnosis: Bilateral PCNT here for exchange in the setting of metastatic urothelial carcinoma Post-operative Diagnosis: Same Type of Anesthesia: Conscious Sedation Description of Findings: Exchange of bilateral PCNT's with 10 Fr. No immediate complication. Technical/Surgical Procedures Used: Please see Separate PACS dictation Specimen Obtained: No Complications: None Estimated Blood Loss: minimal Procedure Events Event Event Time See detailed result report with images in PACS. The patient tolerated the procedure well without incident or complication and is in stable condition. * Pre-Procedure Note - Sundeep Bowman MD - 12/20/2024 9:00 AM EDT Images from the original note were not included. INTERVENTIONAL RADIOLOGY SEDATION PRE-PROCEDURAL ASSESSMENT AND PLAN OF CARE Indication for procedure: The encounter diagnosis was Malignant neoplasm of urinary bladder, unspecified site (CMS/HCC). Planned Procedure: PCNT exchange Relevant past medical history: Metastatic urothelial carcinoma. Previous problems with surgery, anesthesia or sedation: No Previous family history or problems with anesthesia or sedation: No History of tobacco use, alcohol use, or substance abuse: Tobacco Use History[1], Social History Substance and Sexual Activity Alcohol Use Never , Social History Substance and Sexual Activity Drug Use Never Height and Weight: Visit Vitals BP (!) 145/78 Pulse 86 Temp 36.3 ??C (97.3 ??F) (Temporal) Ht 1.575 m (5' 2 ) Wt 65.6 kg (144 lb 10 oz) SpO2 93% BMI 26.45 kg/m?? Allergies to medication: Codeine Current medications: Current Medications[2] Relevant Labs: Lab Results Component Value Date CREATININE 1.25 (H) 09/21/2024 EGFR 46.5 09/21/2024 INR 1.3 (H) 09/12/2024 Planned Sedation/Anesthesia: Moderate Airway assessment: normal Mallampati Score: II (hard and soft palate, upper portion of tonsils anduvula visible) ASA: ASA 3 - Patient with moderate systemic disease with functional limitations Directed physical examination: Vitals: 12/20/24 0800 BP: (!) 145/78 Pulse: 86 Resp: 18 Temp: SpO2: 93% Patient is awake, alert and oriented. Hemodynamically stable. No respiratory difficulty. No acute distress. Bilateral PCNT in place. Benefits, risks and alternatives of procedure and planned sedation have been discussed with the patient and/or their senior outside sales representative. All questions answered and they agree to proceed. [1] Social History Tobacco Use Smoking Status Former Current packs/day: 0.10 Average packs/day: 0.1 packs/day for 51.5 years (5.2 ttl pk-yrs) Types: Cigarettes Start date: 1973 Smokeless Tobacco Never [2] Current Outpatient Medications Medication Sig Dispense Refill buPROPion (Wellbutrin) 75 MG tablet Take 1 tablet by mouth 2 times a day. dexamethasone (Decadron) 4 MG tablet Take 2 tablets by mouth in the morning and 2 tablets in the evening. Take with meals. For 3 days , starting day after Chemo , for 6 cycles . . (Patient not taking: Reported on 10/09/2024) Ferrous Sulfate (IRON PO) Take 1 tablet [...] by mouth every 6 hours as needed. Turmeric (QC TUMERIC COMPLEX PO) Take 1 tablet by mouth in the morning. (Patient not taking: Reported on 10/09/2024) Current Facility-Administered Medications Medication Dose Route Frequency Provider Last Rate Last Admin sodium chloride 0.9 % flush 10 mL 10 mL Intravenous q12h Sundeep Bowman MD And sodium chloride 0.9 % flush 10 mL 10 mL Intravenous PRN Sundeep Bowman MD * Assessment & Plan Note - Sundeep Bowman MD - 12/20/2024 9:00 AM EDT Associated Problem(s): Bladder cancer (CMS/HCC) Patient is awake, alert and oriented. Hemodynamically stable. No respiratory difficulty. No acute distress. Bilateral PCNT in place. 14 point ROS negative except for above. * H&P - Sundeep Bowman MD - 12/20/2024 9:00 AM EDT Images from the original note were not included. Subjective Chief complaint PCNT exchange History Of Present Illness Yaima Pritchard is a 69 y.o. female with a past medical history significant for metastatic urothelial carcinoma. Patient recently had enough tubes placed 09/12/2024 with 8 Romansh bilaterally. Shedoes not report any symptoms or issues with her neph tubes. Negative ROS. No blood thinners. Medical/Surgical/Social/Family History I have reviewed and updated the patient history. Travel History Relevant International Travel History: Travel Screening Question Response Have you been in contact with someone who was sick? No / Unsure Do you have any of the following new or worsening symptoms? None of these Have you traveled internationally or domestically in the last month? No Travel History Travel since 11/20/24 No documented travel since 11/20/24 Allergies Codeine Medications Current Medications[1] Objective 14 point ROS negative except for above. Patient is awake, alert and oriented. Hemodynamically stable. No respiratory difficulty. No acute distress. Last Recorded Vitals Blood pressure (!) 145/78, pulse 86, temperature 36.3 ??C (97.3 ??F), temperature source Temporal, resp. rate 18, height 1.575 m (5' 2 ), weight 65.6 kg (144 lb 10 oz), SpO2 93%. Results Review {Vanishing Link Review Results :[id number] I have reviewed the latest lab and imaging results. Assessment & Plan Malignant neoplasm of urinary bladder, unspecified site (CMS/HCC) Patient is awake, alert and oriented. Hemodynamically stable. No respiratory difficulty. No acute distress. Bilateral PCNT in place. 14 point ROS negative except for above. 69-year-old female with a past medical history significant for metastatic urothelial carcinoma. Here for neph tube exchange. - consent obtained. -relevant imaging results reviewed. -will proceed with exchange. [1] Current Outpatient Medications Medication Sig Dispense Refill buPROPion (Wellbutrin) 75 MG tablet Take 1 tablet by mouth 2 times a day. dexamethasone (Decadron) 4 MG tablet Take 2 tablets by mouth in the morning and 2 tablets in the evening. Take with meals. For 3 days , starting day after Chemo , for 6 cycles . . (Patient not taking: Reported on 10/09/2024) Ferrous Sulfate (IRON PO) Take 1 tablet [...] by mouth every 6 hours as needed. Turmeric (QC TUMERIC COMPLEX PO) Take 1 tablet by mouth in the morning. (Patient not taking: Reported on 10/09/2024) Current Facility-Administered Medications Medication Dose Route Frequency Provider Last Rate Last Admin sodium chloride 0.9 % flush 10 mL 10 mL Intravenous q12h Sundeep Bowman MD And sodium chloride 0.9 % flush 10 mL 10 mL Intravenous PRN Sundeep Bowman MD Cosigned by Liang Rodriguez MD at 12/20/2024 9:04 AM EDT Associated attestation - Liang Rodriguez MD - 12/20/2024 9:04 AM EDT I saw and evaluated the patient with the resident/fellow. I discussed the case with the resident/fellow and agree with the findings and plan as documented. documented in this encounter Plan of Treatment Upcoming Encounters Date Type Department Care Team (Late st Contact Info) Description 01/15/2025 4:30 PM EDT Office Visit [facility] [address] [place] [address] Ochoa Matias MD [address] [place] [address] documented as of this encounter Procedures Procedure Name Priority Date/Time Associated Diagnosis Comments IR NEPHROSTOMY TUBE EXCHANGE Routine 12/20/2024 9:20 AM EDT Malignant neoplasm of urinary bladder, unspecified site (CMS/HCC) documented in this encounter Results * IR Nephrostomy Tube Exchange (12/20/2024 9:20 AM EDT) Anatomical Region Laterality Modality Body, Kidney X-Ray Angiograph y Impressions 12/20/2024 10:50 AM EDT Successful bilateral percutaneous nephrostomy tube exchange using 10 Romansh locking pigtail drainage catheters. PLAN: Nephrostomy tube should remain to gravity drainage. Do not cap. Flush the percutaneous nephrostomy tube daily with 5 cc normal saline. The percutaneous nephrostomy tube to should be changed in approximately 12 weeks if no complication. CRITICAL RESULT: No. COMMUNICATION: Per this written report. Drafted by Liang Rodriguez MD on 12/20/2024 10:48 AM Final report signed by Liang Rodriguez MD on 12/20/2024 10:50 AM Narrative 12/20/2024 10:50 AM EDT CLINICAL INDICATION: 69-year-old female who presents for routine bilateral nephrostomy tube exchange. TECHNIQUE: Gastroenterology Teacher: Sundeep Bowman MD Supervising attending: Liang Rodriguez MD Rad Dose: 27 mGy Medications: IV conscious sedation with continuous physiologic monitoring provided by a qualified healthcare professional using Versed 1 mg IV and Fentanyl 50 mcg IV. 1% Lidocaine SQ. Duration of Conscious Sedation: Time out: 901 close out: 9:15 Procedure: The patient was identified. After the risks and benefits of the procedure were discussed with the patient, an informed written consent was obtained. The patient was then brought back to interventional suite and placed prone on the table. A time out was performed. Strict hand hygiene protocol was observed with the operators doing a surgical hand scrub. All personnel in the room were attired in surgical hat and mask. The operators were in surgical hat, mask, sterile gloves and gowns. The site was prepped with 2% chlorhexidine for cutaneous antisepsis, followed by sterile barrier draping A supervisor production film was performed to document the location of the existing catheters. Beginning on the left side, a preprocedural nephrostogram was performed. Subsequently, the pericatheteral skin was anesthetized using 1 % lidocaine. The tube was unlocked and unsecured and was exchanged over an Amplatz wire with another 10 Fr locking pigtail catheter. The pigtail loop was adjusted so that its distal end lie in renal pelvis. Post procedure nephrostogram was performed to confirm adequate catheter placement and to rule out any immediate complication. Catheter was secured to the skin using 2-0 silk. Next, on the right side, a preprocedural nephrostogram was performed. Subsequently, the pericatheter skin was anesthetized using 1 % lidocaine. The tube was unlocked and unsecured and was exchanged over an amplatz wire with another 10 Fr locking pigtail catheter. The pigtail loop was adjusted so that its distal end lie in renal pelvis. Post procedure nephrostogram was performed to confirm adequate catheter placement and to rule out any immediate complication. Catheter was secured to the skin using 2-0 silk. The patient tolerated the procedure well and there were no immediate complication. COMPARISON: None. FINDINGS: Utility Accounts Director images and nephrostograms demonstrate bilateral percutaneous nephrostomy tubes in expected location. COMPLICATION: No. Procedure Note Liang Rodriguez MD - 12/20/2024 CLINICAL INDICATION: 69-year-old female who presents for routine bilateral nephrostomy tubeexchange. TECHNIQUE: Gastroenterology Teacher: Sundeep Bowman MD Supervising attending: Liang Rodriguez MD Rad Dose: 27 mGy Medications: IV conscious sedation with continuous physiologic monitoringprovided by a qualified healthcare professional using Versed 1 mg IV andFentanyl 50 mcg IV. 1% Lidocaine SQ. Duration of Conscious Sedation: Time out: 901 close out: 9:15 Procedure: The patient was identified. After the risks and benefits of the procedurewere discussed with the patient, an informed written consent was obtained.The patient was then brought back to interventional suite and placed proneon the table. A time out was performed. Strict hand hygiene protocol was observed with the operators doing asurgical hand scrub. All personnel in the room were attired in surgicalhat and mask. The operators were in surgical hat, mask, sterile gloves andgowns. The site was prepped with 2% chlorhexidine for cutaneousantisepsis, followed by sterile barrier draping A supervisor production film was performed to document the location of the existingcatheters. Beginning on the left side, a preprocedural nephrostogram was performed.Subsequently, the pericatheteral skin was anesthetized using 1 %lidocaine. The tube was unlocked and unsecured and was exchanged over anAmplatz wire with another 10 Fr locking pigtail catheter. The pigtail loopwas adjusted so that its distal end lie in renal pelvis. Post procedurenephrostogram was performed to confirm adequate catheter placement and torule out any immediate complication. Catheter was secured to the skinusing 2-0 silk. Next, on the right side, a preprocedural nephrostogram was performed.Subsequently, the pericatheter skin was anesthetized using 1 % lidocaine.The tube was unlocked and unsecured and was exchanged over an amplatz wirewith another 10 Fr locking pigtail catheter. The pigtail loop was adjustedso that its distal end lie in renal pelvis. Post procedure nephrostogramwas performed to confirm adequate catheter placement and to rule out anyimmediate complication. Catheter was secured to the skin using 2- 0 silk. The patient tolerated the procedure well and there were no immediatecomplication. COMPARISON: None. FINDINGS: Utility Accounts Director images and nephrostograms demonstrate bilateral percutaneousnephrostomy tubes in expected location. COMPLICATION: No. IMPRESSION: Successful bilateral percutaneous nephrostomy tube exchange using 10French locking pigtail drainage catheters. PLAN: Nephrostomy tube should remain to gravity drainage. Do not cap. Flush the percutaneous nephrostomy tube daily with 5 cc normal saline. The percutaneous nephrostomy tube to should be changed in approximately 12weeks if no complication. CRITICAL RESULT: No. COMMUNICATION: Per this written report. Drafted by Liang Rodriguez MD on 12/20/2024 10:48 AM Final report signed by Liang Rodriguez MD on 12/20/2024 10:50 AM Kristen Donovan Manny ADVERTISING CONSULTANT IMG IR PROCEDURES Final Result documented in this encounter Visit Diagnoses Diagnosis Malignant neoplasm of urinary bladder, unspecified site (CMS/HCC) documented in this encounter Administered Medications Inactive Administered Medications - up to 3 most recent administrations Medication Order MAR Action Action Date Dose Rate Site fentaNYL (Sublimaze) injection Intravenous, As needed, Starting on Mon12/20/24 at 0901, Until Mon12/20/24 at 0901, Routine, Intraprocedure Given 12/20/2024 9:01 AM EDT 50 mcg iohexol (OMNIPaque) 300 MG/ML injection 20 mL 20 mL, Intravenous, Once in imaging, 1 dose, Starting on Mon12/20/24 at 0923, Until Mon12/20/24 at 0923, Routine, Imaging Protocol Orders Given 12/20/2024 9:23 AM EDT 20 mL lidocaine (Xylocaine) 1 % injection Intradermal, As needed, Starting on Mon12/20/24 at 0903, Until Mon12/20/24 at 0910, Routine, Intraprocedure Given 12/20/2024 9:10 AM EDT 10 mL Izabela k Given 12/20/2024 9:03 AM EDT 10 mL Ba ck midazolam (Versed) injection Intravenous, As needed, Starting on Mon12/20/24 at 0901, Until Mon12/20/24 at 0901, Routine, Intraprocedure Given 12/20/2024 9:01 AM EDT 1 mg documented in this encounter Additional Health Concerns Assessment Noted Time PHQ-9 Depression Total Score: 0 10/10/19 25 12:34 PM EDT A fall risk assessment has been complete d for the patient 10/09/2024 12:34 PM EDT A Body Mass Index follow-up plan has been documented for the patient 12/20/2024 9:48 AM EDT documented as of this encounter Care Teams Print Buyer Relationship Specialty Start Date End Date Luis Hatfield MD [address] [place] [address] PCP - General 07/24/24 documented as of this encounter
--- OUTSIDE RECORDS SUMMARY | 2024-12-26 10:30 | XMS_ITS | Encounter Summary ---
Author Organization [facility] Address [address] [place] [address] Care Team Providers Care Slot Machine Repairer Name Role Phone Luis Hatfield MD Primary Care Provider [phone] Reason for Visit * Reason Comments Seropositive rheumatoid arthritis 6 veronica h follow up Encounter Details Date Type Department Care Team (Latest Contact Info) Description 12/26/2024 10:30 AM EDT Office Visit [facility] RHEUMATOLOGY [address] [phone] Nguyen Romero APRN [address] [address] Seropositive rheumatoid arthritis (Primary Dx); Systemic lupus [...] DNA 13.0 (<4.0), Centromere and Chromatin normal, CASINO OPERATIONS SUPERVISOR and SCL 70 normal, Christine normal, SSA and SSB normal, total bilirubin 1.4, Glucose 117, CMP was ok otherwise, CCP negative, CRP Normal, RF 110 (<14.0 normal), ESR normal, TSH normal * Medications/treatments/interventions tried include: Tylenol, meloxicam, Advil, CBD oil, Tumeric, Aspirin, Plaquenil, she has seen podiatry (Miky Steele DPM), she has seen roof painter (Dr. Jed Trevino), Ketamine, gabapentin, She [...] lesion. She brought in medical records from [facility] for us to review. Subjective Review [...] DNA 13.0 (<4.0), Centromere and Chromatin normal, CASINO OPERATIONS SUPERVISOR and SCL 70 normal, Christine normal, SSA and SSB normal, total bilirubin 1.4, Glucose 117, CMP was ok otherwise, CCP negative, CRP Normal, RF 110 (<14.0 normal), ESR normal, TSH normal * Medications/treatments/interventions tried include: Tylenol, meloxicam, Advil, CBD oil, Tumeric, Aspirin, Plaquenil, she has seen podiatry (Miky Steele DPM), she has seen roof painter (Dr. Jed Trevino), Ketamine, gabapentin, She [...] for Dr. Wells. Nguyen Romero APRN [facility] [place] documented in this encounter Plan of Treatment Upcoming Encounters Date Type Department Care Team (Late st Contact Info) Description 07/09/2025 10:45 AM EST Office Visit [facility] RHEUMATOLOGY [address] [place] [phone] Vicente Wells DO [address] [phone] Scheduled Orders Name Type Priority Associated Diagnoses [...] anti-inflammatories documented in this encounter Care Teams Slot Machine Repairer Relationship Specialty Start Date End Date Luis Hatfield MD 1210 [facility] [address] [facility] [address] [place] [address] PCP - General Family Medicine 06/13/24 documented as of this encounter
--- OUTSIDE RECORDS SUMMARY | 2025-01-14 09:26 | XMS_ITS | Encounter Summary ---
Author Organization [facility] Address [address] [id number] Care Team Providers Care Non Profit Director Name Role Phone Luis Hatfield MD Primary Care Provider [phone] Encounter Details Date Type Department Care Team (Late Contact Info) Description 07/12/2024 Telephone [facility] RHE[facility]OLOG[facility] [address] [address] Vicente Wells DO [address] [phone] Social History Tobacco Use Types Packs/Day Years [...] Office Visit [facility] [address] [address] Vicente Wells DO [address] [phone] documented as of this encounter Visit Diagnoses Not on filedocumented in this encounter Care Teams Non Profit Director Relationship Specialty Start Date End Date Luis Hatfield MD 12[address] [facility] [address] [place] [address] PCP - General Family Medicine 06/13/24 documented as of this encounter
--- OUTSIDE RECORDS SUMMARY | 2025-01-14 09:26 | XMS_ITS | Encounter Summary ---
Author Organization [facility] Address [address] [id number] Care Team Providers Care Coat Maker Name Role Phone Luis Hatfield MD Primary Care Provider [phone] Encounter Details Date Type Department Care Team ([facility] Contact Info) Description 07/12/2024 Telephone [facility] RHEUMATOLOGY [address] [address] Santiago Anders MD [address] [phone] Social History Tobacco Use Types Packs/Day Years [...] 10:45 AM EST Office Visit [facility] RHEUMATOLOGY [address] [address] Vicente Wells DO [address] [address] documented as of this encounter Visit Diagnoses Not on filedocumented in this encounter Care Teams Coat Maker Relationship Specialty Start Date End Date Luis Hatfield MD 1210 [facility] [address] [place] [id number] PCP - General Family Medicine 06/13/24 documented as of this encounter
--- OUTSIDE RECORDS SUMMARY | 2025-01-14 09:26 | XMS_ITS | Encounter Summary ---
Author Organization Healthcare Address [address] [place] [address] Care Team Providers Care Victorian Literature Professor Name Role Phone Luis Hatfield MD Primary Care Provider [phone] Reason for Visit * Reason Onset Date Comments [facility] 11/26/2024 Encounter Details Date Type Department Care Team (Late st Contact Info) Description 11/26/2024 Telephone [facility] Multidisciplinary Oncology Clinic [address] [place] [address] Ochoa Matias MD [address] [place] [address] [facility] Social History Tobacco Use Types Packs/Day Years [...] drink first t kimberlyn in the morning (EYE-OUTSOLE SCHEDULER) to steady your nerves or to get [...] Description 01/15/2025 4:30 PM EDT Office Visit [facility] Multidisciplinary Oncology Clinic [address] [place] [address] Ochoa Matias MD [address] [facility] [address] [place] [address] documented as of this encounter Visit Diagnoses [...] documented as of this encounter Care Teams Victorian Literature Professor Relationship Specialty Start Date End Date Luis Hatfield MD [address] [address] PCP - General 07/24/24 documented as of this encounter
--- OUTSIDE RECORDS SUMMARY | 2025-01-14 09:26 | XMS_ITS | Encounter Summary ---
Author Organization Healthcare Address [address] [id number] Care Team Providers Care Reed Repairer Name Role Phone Luis Hatfield MD Primary Care Provider [phone] Encounter Details Date Type Department Care Team (Late st Contact Info) Description 08/19/2024 Lab Requisition [facility] H Lab [address] [place] [address] Ochoa Matias MD [address] [place] [address] Malignant neoplasm of bladder, unspecified (CMS/HCC) Social [...] time in the past 12 m [facility], were you homeless or living in a jail (including now)? No 07/24/2024 CAGE ASSESSMENT Answer [...] drink first t kimberlyn in the morning (EYE-CLEANING VALIDATION CONSULTANT) to steady your nerves or to [...] Description 01/15/2025 4:30 PM EDT Office Visit [facility] Multidisciplinary Oncology Clinic [address] [place] [address] Ochoa Matias MD [address] [place] [address] documented as of this encounter Procedures Procedure [...] AM EDT [facility] Comment:[id number], A3 Test Result see scan 09/05/2024 7:35 AM EDT [facility] See Scanned Result 09/05/2024 7:35 AM EDT [facility] Tissue 07/23/2024 1:18 PM EST 08/19/2024 1:48 PM EDT us Ochoa Matias MD LAB REF LAB BLOOD AND FLUID ORD Final Result [facility] [address] [place] [address] * - AP Miscellaneous Test (07/23/2024 1:18 PM EST) Test name Selwyn Viviane Espinosa 09/09/2024 8:04 AM EDT [facility] Comment:[id number], A3 Test Result see scan 09/09/2024 8:04 AM EDT [facility] See Scanned Result 09/09/2024 8:04 AM EDT [facility] Tissue 07/23/2024 1:18 PM EST 08/19/2024 1:48 PM EDT us Ochoa Matias MD LAB REF LAB BLOOD AND FLUID ORD Final Result [facility] [address] [place] [address] documented in this encounter Visit Diagnoses Diagnosis Malignant neoplasm of bladder, unspecified (CMS/HCC) documented in this encounter Additional Health Concerns Assessment Noted Time A Body Mass Index follow-up plan has been documented for the patient 07/25/2024 1:21 PM EST documented as of this encounter Care Teams Reed Repairer Relationship Specialty Start Date End Date Luis Hatfield MD [address] [place] [address] PCP - General 07/24/24 documented as of this encounter
--- OUTSIDE RECORDS SUMMARY | 2025-01-14 09:26 | XMS_ITS | Encounter Summary ---
Author Organization Healthcare Address [address] [place] [address] Care Team Providers Care Janitor Supervisor Name Role Phone Luis Hatfield MD Primary Care Provider [phone] Encounter Details Date Type Department Care Team (Late st Contact Info) Description 12/02/2024 Telephone [facility] Interventional Radiology [address] [place] [address] Cecille Escobedo RN CH-VASCULAR & INTERVENTIONAL RADIOLOGY [...] drink first t kimberlyn in the morning (EYE-STUNT MAN) to steady your nerves or to get [...] Description 01/15/2025 4:30 PM EDT Office Visit [facility] Multidisciplinary Oncology Clinic [address] [place] [address] Ochoa Matias MD [address] [facility] [address] [place] [address] documented as of this encounter Visit Diagnoses [...] documented as of this encounter Care Teams Janitor Supervisor Relationship Specialty Start Date End Date Luis Hatfield MD [address] [address] PCP - General 07/24/24 documented as of this encounter
--- OUTSIDE RECORDS SUMMARY | 2025-01-14 09:26 | XMS_ITS | Clinical Summary ---
Author Organization [facility] Address [address] [place] [address] Care Team Providers Care Enterostomal Nurse Name Role Phone Luis Hatfield MD Primary Care Provider [phone] Allergies Active Allergy Reactions Criticality Noted Date [...] DNA 13.0 (<4.0), Centromere and Chromatin normal, COMMERCIAL FRONT LOAD OPERATOR and SCL 70 normal, Christine normal, SSA and SSB normal, total bilirubin 1.4, Glucose 117, CMP was ok otherwise, CCP negative, CRP Normal, RF 110 (<14.0 normal), ESR normal, TSH normal * Medications/treatments/interventions tried include: Tylenol, meloxicam, Advil, CBD oil, Tumeric, Aspirin, Plaquenil, she has seen podiatry (Miky Steele DPM), she has seen friction paint machine tender (Dr. Jed Trevino), Ketamine, gabapentin, She has [...] DNA 13.0 (<4.0), Centromere and Chromatin normal, COMMERCIAL FRONT LOAD OPERATOR and SCL 70 normal, Christine normal, SSA and SSB normal, total bilirubin 1.4, Glucose 117, CMP was ok otherwise, CCP negative, CRP Normal, RF 110 (<14.0 normal), ESR normal, TSH normal * Medications/treatments/interventions tried include: Tylenol, meloxicam, Advil, CBD oil, Tumeric, Aspirin, Plaquenil, she has seen podiatry (Miky Steele DPM), she has seen friction paint machine tender (Dr. Jed Trevino), Ketamine, gabapentin, She has [...] DNA 13.0 (<4.0), Centromere and Chromatin normal, COMMERCIAL FRONT LOAD OPERATOR and SCL 70 normal, Christine normal, SSA and SSB normal, total bilirubin 1.4, Glucose 117, CMP was ok otherwise, CCP negative, CRP Normal, RF 110 (<14.0 normal), ESR normal, TSH normal * Medications/treatments/interventions tried include: Tylenol, meloxicam, Advil, CBD oil, Tumeric, Aspirin, Plaquenil, she has seen podiatry (Miky Steele DPM), she has seen friction paint machine tender (Dr. Jed Trevino), Ketamine, gabapentin, She has [...] Description 12/26/2024 10:30 AM EDT Office Visit [facility] RHEUMATOLOGY [address] [address] Nguyen Romero APRN Seropositive rheumatoid arthritis (Primary Dx); Systemic lupus erythematosus, unspecified SLE type, unspecified organ involvement status; High risk medication use; Primary osteoarthritis involving multiple joints; NSAID long-term use 12/26/2024 Results Follow-Up [facility] RHEUM[facility]OLOGY [address] [address] Vicente Wells, 12/26/2024 Results Follow-Up [facility] RHEUM[facility]OLOGY [address] [address] Vicente Wells, 12/26/2024 Travel from [...] Description 07/09/2025 10:45 AM EST Office Visit [facility] RHEUMATOLOGY [address] [place] [address] Vicente Wells DO [address] [facility] [address] [place] [address] Health Maintenance Due Date Last Done Comments [...] - IMAGING 10/31/2024 SCANNED - LABS 10/17/2024 from Last 3 Months Results * LABS SCANNED (12/12/2024) Only the most recent of4 resultswithin the time period is included. Vicente Wells DO LAB BLOOD ORDERABLES F inal Result * IMAGING SCANNED (10/31/2024) Anatomical Region Laterality Modality Radiographic Minnie ging Vicente Wells DO IMG DIAGNOSTIC IMAGING ORDERABLES Final Result from Last 3 Months Insurance [employer] PPO Care Teams Enterostomal Nurse Relationship Specialty Start Date End Date Luis Hatfield MD [address] [facility] [address] [place] [id number] PCP - General Family Medicine 06/13/24
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
--- OUTSIDE RECORDS SUMMARY | 2025-01-14 09:27 | XMS_ITS | Encounter Summary ---
Author Organization [facility] Address [address] [place] [address] Care Team Providers Care Kaiawhina Name Role Phone Luis Hatfield MD Primary Care Provider [phone] Encounter Details Date Type Department Care Team (Late Contact Info) Description 12/26/2024 Results Follow-Up [facility] [address] [address] Vicente Wells DO [address] [address] Social History Tobacco Use Types Packs/Day Years [...] Description 07/09/2025 10:45 AM EST Office Visit [facility] [address] [address] Vicente Wells DO [address] [id number] documented as of this encounter Visit Diagnoses Not on filedocumented in this encounter Care Teams Kaiawhina Relationship Specialty Start Date End Date Luis Hatfield MD [address] [place] [address] [place] [address] PCP - General Family Medicine 06/13/24 documented as of this encounter
--- OUTSIDE RECORDS SUMMARY | 2025-01-14 09:27 | XMS_ITS | Encounter Summary ---
Author Organization [facility] Address [address] [place] [address] Care Team Providers Care Mock Up Assembler Name Role Phone Luis Hatfield MD Primary Care Provider [phone] Encounter Details Date Type Department Care Team [...] any time in the past 12 m [facility], were you homeless or [...] first t kimberlyn in the morning (EYE-MANAGER DATA) to steady your nerves or to get rid of a hangover? 0 09/11/2024 CAGE Questionnaire Score 0 025 Utilities Answer Date Recorded In the past 12 months has th e [employer], gas, oil, or water company threatened to [...] Description 01/15/2025 4:30 PM EDT Office Visit [facility] [address] [place] [address] Ochoa Matias MD [address] [place] [address] documented as of this encounter Visit Diagnoses [...] documented as of this encounter Care Teams Mock Up Assembler Relationship Specialty Start Date End Date Luis Hatfield MD [address] [facility] [address] [place] [address] PCP - General 07/24/24 documented as of this encounter
--- OUTSIDE RECORDS SUMMARY | 2025-01-14 09:28 | XMS_ITS | Clinical Summary ---
Author Organization [facility] Address [address] [place] [address] Care Team Providers Care Production Solderer Name Role Phone Luis Hatfield MD Primary Care Provider [phone] Allergies Active Allergy Reactions Criticality Noted Date [...] Encounter [facility] [address] [place] [address] Liliana Parra Malignant neoplasm of urinary bladder, unspecified site (CMS/HCC) Discharge Disposition: Home or Self Care 12/20/2024 Travel 12/02/2024 Telephone [facility] [address] [place] [address] Cecille Escobedo RN 11/26/2024 Telephone [facility] [address] [place] [address] Ochoa Matias MD [facility] 11/01/2024 Telephone [facility] [address] [place] [address] Ochoa Matias MD 10/24/2024 Telephone [facility] [address] [place] [address] Ochoa Matias MD [facility] 10/18/2024 Telephone [facility] [address] [place] [address] Ochoa Matias MD from Last 3 Months Social History Tobacco [...] any time in the past 12 m onths, were you homeless or living in a [...] drink first t kimberlyn in the morning (EYE-NARROW FABRICS WEAVER) to steady your nerves or to get [...] Description 01/15/2025 4:30 PM EDT Office Visit [facility] Multidisciplinary Oncology Clinic [address] [place] [address] Ochoa Matias MD [address] [place] [address] Health Maintenance Due Date Last Done Comments [facility]-Bone Density Scan 1955 [facility]-Medicare Annual Wellness (AWV) 1955 [facility]-Infant/Child/Adol SDOH Screenings 1954 [id number]-[id number] Vaccine (#1) 1959 [facility]-DTaP,Tdap,and Td Vaccines (1 [...] this topic Medical Devices Implanted Type Area Grid Inspector Device Identifier Shelf Expiration Date Model / Serial / Lot Stent Ureteral Double Pigtail Pos 6fr 26cm - S. - [id number] Implanted:Qty: 1 on 07/23/2024 by Ochoa Matias MD at [facility] Stent N/A: [id number] 03/11/2026 [id number] / . / [id number] Procedures Procedure Name Priority Date/Time Associated Diagnosis [...] nephrostomy tube exchange using 10 Citizen [place] locking pigtail drainage catheters. PLAN: Nephrostomy tube [...] for routine bilateral nephrostomy tube exchange. TECHNIQUE: Warranty Administrator: Sundeep Bowman MD Supervising attending: Liang Rodriguez [...] antisepsis, followed by sterile barrier draping A cinder dump crane operator film was performed to document the [...] were no immediate complication. COMPARISON: None. FINDINGS: Cement Rubber images and nephrostograms demonstrate bilateral percutaneous nephrostomy tubes in expected location. COMPLICATION: No. Procedure Note Liang Rodriguez MD - 12/20/2024 CLINICAL INDICATION: 69-year-old female who presents for routine bilateral nephrostomy tubeexchange. TECHNIQUE: Warranty Administrator: Sundeep Bowman MD Supervising attending: Liang Rodriguez [...] cutaneousantisepsis, followed by sterile barrier draping A cinder dump crane operator film was performed to document the [...] there were no immediatecomplication. COMPARISON: None. FINDINGS: Cement Rubber images and nephrostograms demonstrate bilateral percutaneousnephrostomy tubes [...] MD on 12/20/2024 10:50 AM Kristen Bryant MOTORCYCLE POLICE OFFICER IMG IR PROCEDURES Final Result * Hepatitis C Antibody - ED (07/22/2024 7:54 PM EST) Hepatitis C Antibody Negative Negative 07/22/2024 9:11 PM EST [facility] Blood Venous blood specimen / Unknown Venipuncture / Unknown 07/22/2024 7:54 PM EST 07/22/2024 8:09 PM EST [facility] MCC[facility]E LAB BLOOD ORDERABLES Missy l Result [facility] [address] [place] [address] from Last 3 Months or Most Recently Relevant to Health Maintenance Insurance [facility] MEDICARE Advance Directives * Full Code [...] Patient has decision-making capacity? Yes Care Teams Production Solderer Relationship Specialty Start Date End Date Luis Hatfield MD [address] [place] [id number] PCP - General 07/24/24
--- OUTSIDE RECORDS SUMMARY | 2025-01-14 09:28 | XMS_ITS | Encounter Summary ---
Author Organization [facility] Address [address] [place] [id number] Care Team Providers Care Director Microbiology Name Role Phone Luis Hatfield MD Primary Care Provider [phone] Encounter Details Date Type Department Care Team [...] Description 07/09/2025 10:45 AM EST Office Visit [facility] RHEUMATOLOGY [address] [phone] Vicente Wells DO [address] [address] documented as of this encounter Visit Diagnoses Not on filedocumented in this encounter Care Teams Director Microbiology Relationship Specialty Start Date End Date Luis Hatfield MD [address] [place] [facility] [address] [place] [address] PCP - General Family Medicine 06/13/24 documented as of this encounter
--- OUTSIDE RECORDS SUMMARY | 2025-01-14 09:28 | XMS_ITS ---
Author Organization [facility] Address [address] [place] [address] Care Team Providers Care Occasional Babysitter Name Role Phone Luis Hatfield MD Primary Care Provider [phone] Active Problems Problem Noted Date Diagnosed Date [...]
--- OUTSIDE RECORDS SUMMARY | 2025-01-14 09:28 | XMS_ITS | Encounter Summary ---
Author Organization [facility] Address [address] [place] [address] Care Team Providers Care Greenhouse Technician Name Role Phone Luis Hatfield MD Primary Care Provider [phone] Encounter Details Date Type Department Care Team (Late Contact Info) Description 12/26/2024 Results Follow-Up [facility] RHEUMATOLOGY [address] [address] Vicente Wells DO [address] [address] Social History Tobacco Use Types Packs/Day Years [...] 07/09/2025 10:45 AM EST Office Visit [facility] RHEUMATOLOG[facility] [address] [address] Vicente Welsl DO [address] [address] documented as of this encounter Visit Diagnoses Not on filedocumented in this encounter Care Teams Greenhouse Technician Relationship Specialty Start Date End Date Luis Hatfield MD [address] [place] [address] PCP - General Family Medicine 06/13/24 documented as of this encounter
--- NOTE | 2025-01-14 09:30 | CT_ITS ---
FINAL REPORT TECHNIQUE: After the administration of intravenous contrast, axial images were obtained through the abdomen and pelvis by computed tomography. The study was performed with techniques to keep radiation dose as low as reasonably achievable, (ALARA). Individual dose reduction techniques using automated exposure control or adjustment of mA and/or kV according to the patient's size were employed. CLINICAL HISTORY: Bladder Cancer COMPARISON: 09/20/2024 FINDINGS: Abdomen: The liver is homogeneous. There is a tiny benign cyst in the right lobe of the liver. The previously noted tiny density in the anterior liver dome is no longer visualized. The gallbladder is surgically absent. Calcified granulomas are noted in the spleen. The pancreas and adrenal glands are unremarkable. Bilateral nephrostomy tubes are present. There is no evidence of hydronephrosis. The right internal ureteral stent has been removed. Pelvis: The appendix is unremarkable. The uterus is present and lies eccentric to the left. The previously noted mass at the base of the urinary bladder is not well seen today due to the bladder being decompressed. Advanced changes of degenerative disc disease are noted at L5-S1. IMPRESSION: Right ureteral stent removed in the interval. Bladder mass not well seen secondary to a decompressed urinary bladder. Low-attenuation focus in the anterior liver dome not seen on today's exam. Bilateral nephrostomy tubes with decompression of the collecting systems. Reviewed, Interpreted and Dictated by Boyd Stuart MD Transcribed by Karolyn Lopez Authenticated and . [facility]
--- NOTE | 2025-01-14 09:30 | CT_ITS ---
FINAL REPORT TECHNIQUE: Routine axial images were obtained from the lung apices to below the diaphragm following IV contrast administration. Individualized dose reduction techniques using automated exposure control or adjustment of the mA and/or kV according to the patient size were employed. CLINICAL HISTORY: Bladder Cancer COMPARISON: 09/20/2024 FINDINGS: The mediastinal vasculature is well opacified. There is no mediastinal mass or adenopathy. There is a small sliding-type hiatal hernia. No pleural or pericardial effusion is seen. The previous multitude of noncalcified nodules scattered throughout both lungs have essentially resolved on today's exam. There is a focus of ground-glass opacity in the periphery of the right upper lobe measuring 18 mm on image 30 of series 4 which is stable. There is a calcified granuloma in the posterior left upper lobe with small satellite nodules, all stable and seen on image 34 series 4. IMPRESSION: Previously noted multitude of bilateral noncalcified nodules have resolved. Stable ground-glass opacity in the periphery of the right upper lobe. Small hiatal hernia. Reviewed, Interpreted and Dictated by Boyd Stuart MD Transcribed by Karolyn Lopez Authenticated and [facility]
[2025-01-14] MEDS: IOPAMIDOL-370 (76%);100ML BOTTLE 75 ML IV (09:45)
[2025-01-14] MEDS: SODIUM CHLORIDE 0.9% 10ML SYR (RAD ONLY) 10 ML IV (09:45)
== END 2025-01-14 23:59 | disposition home or self-care (01) ==
LOC: RAD 09:24
PROVIDERS: PCP Family Medicine; Visit Provider Internal Medicine Medical Oncology
DX: C67.9 Malignant neoplasm of bladder, unspecified (principal); K44.9 Diaphragmatic hernia without obstruction or gangrene; J84.10 Pulmonary fibrosis, unspecified; R91.8 Other nonspecific abnormal finding of lung field; K76.89 Other specified diseases of liver; M51.379 Other intervertebral disc degeneration, lumbosacral region without mention of lumbar back pain or lower extremity pain; Z90.49 Acquired absence of other specified parts of digestive tract
CPT/HCPCS: 71260; 74177; Q9967

== ENCOUNTER 2025-01-17 09:22 | Outpatient (CLI) | payer MEDICARE, SELFPAY ==
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
--- OUTSIDE RECORDS SUMMARY | 2024-12-08 20:00 | XMS_ITS | Clinical Summary ---
Author Organization Unknown Care Team Providers Care Frame Trimmer Name Role Phone YANE OSORIO, JONH Unavailable Unavailable LUAN OT, ANNALISA Unavailable Unavailable JOHANA PT, LORENZO Unavailable Unavailable OLVIN PALM GATHERER, CHIQUITA Unavailable Unavailable Payers Payer Name Policy Type Policy Number Effective Date Expira tion Date [employer]ANN [employer].AUTH [id number] Problems Condition Name Condition Details Condition Category [...] 200 mg tablet 10-01 00:00: 00 Yes [id number] SLE 1 tablet TWICE DAILY 1 tablet TWICE DAILY (route: oral) Med Classific ation: Anti-Infe ctive Agents bupropion HCl 75 mg tablet 09-27 00:00: 00 Yes [id number] SMOKING CESSATION 1 tablet TWICE DAILY 1 tablet TWICE DAILY (route: oral) Med Classific ation: Central Nervous System Agents ondansetron HCl 4 mg tablet 09-27 00:00: 00 Yes [id number] NAUSEA 1 tablet ONCE EVERY 8 HOURS NEEDED 1 tablet ONCE EVERY 8 HOURS NEEDED (route: oral) Med Classific ation: Gastroint estinal Therapy Agents rosuvastati n 40 mg tablet 09-27 00:00: 00 Yes [id number] CHOLESTEROL 1 tablet DAILY 1 tablet DAILY (route: oral) Med Classific ation: Cardiovas cular Therapy Agents tramadol 50 mg tablet 09-27 00:00: 00 Yes [id number] PAIN 1 tablet EVERY 6 HOURS NEEDED 1 tablet EVERY 6 HOURS NEEDED (route: oral) Med Classific ation: Analgesic , Anti-infl ammatory or Antipyret ic estradiol 0.01% (0.1 mg/gram) vaginal cream 16 00:00: 00 Yes [id number] HORMONE 1 inch VAGINALLY ONCE DAILY FOR 2 WEEKS THEN 3 TIMES 1 inch VAGINALLY ONCE DAILY FOR 2 WEEKS THEN 3 TIMES (route: vaginal) Med Classific ation: Vaginal Products sulfamethox azole 800 mg-trimetho prim 160 mg tablet 14 00:00: 00 Yes [id number] ANTIBIOTIC 1 tablet 2 TIMES DAILY 1 tablet 2 TIMES DAILY (route: oral) Med Classific ation: Anti-Infe ctive Agents sodium chloride 0.9 % injection syringe 09-13 00:00: 00 10-12 00:00 :00 No [id number] Per instruc tions Per instructio ns (route: injection) Med Classific ation: Electroly te Balance-N utritiona l Products hydrocodone 5 mg-acetamin ophen 325 mg tablet 10-31 00:00: 00 Yes [id number] NEEDED FOR PAIN 1-2 tablet EVERY 8 [...] PHYSICIANS DR DENA HERNANDEZ PCP, DR IQBAL CHIEF DIVERSITY OFFICER TO OBSERVE AND ASSESS, RECORDER HELPER GRAVITY PROSPECTING/ROCKBOARD LATHER TO OBSERVE FOR RISK FOR FALLS AND INSTRUCT IN FALL PREVENTION, HOME SAFETY, MEDICATION MANAGEMENT, INFECTION PREVENTION, AND NUTRITION MANAGEMENT. RN/RECORDER HELPER GRAVITY PROSPECTING/ROCKBOARD LATHER NURSE MAY PERFORM O2 SATURATION LEVEL ON ADMISSION AND PRN FOR SOB AND AMS FOR RN TO ASSESS/RECORDER HELPER GRAVITY PROSPECTING TO OBSERVE PATIENT, WITH NOTIFICATION TO THE PHYSICIAN IF SATURATION IS 90% IN THE ABSENCE OF MORE SPECIFIC PARAMETERS FROM THE PHYSICIAN. AGENCY MAY PERFORM A RESUMPTION OF CARE VISIT FOLLOWING ANY HOSPITAL ADMISSION. RN/RECORDER HELPER GRAVITY PROSPECTING/ROCKBOARD LATHER TO MONITOR CO-MORBID CONDITIONS LISTED ON THE PLAN OF CARE AND ANY NEW CONDITIONS THAT PRESENT THEMSELVES DURING THIS EPISODE TO IDENTIFY CHANGES AND INTERVENE TO MINIMIZE COMPLICATIONS. [code = RN TO OBSERVE, ASSESS, EVALUATE, AND DEVELOP AN INDIVIDUALIZED PLAN OF CARE. AGENCY MAY ACCEPT ORDERS FROM CONSULTING PHYSICIANS DR DENA HERNANDEZ PCP, DR IQBAL CHIEF DIVERSITY OFFICER TO OBSERVE AND ASSESS, RECORDER HELPER GRAVITY PROSPECTING/ROCKBOARD LATHER TO OBSERVE FOR RISK FOR FALLS AND INSTRUCT IN FALL PREVENTION, HOME SAFETY, MEDICATION MANAGEMENT, INFECTION PREVENTION, AND NUTRITION MANAGEMENT. RN/RECORDER HELPER GRAVITY PROSPECTING/ROCKBOARD LATHER NURSE MAY PERFORM O2 SATURATION LEVEL ON ADMISSION AND PRN FOR SOB AND AMS FOR RN TO ASSESS/RECORDER HELPER GRAVITY PROSPECTING TO OBSERVE PATIENT, WITH NOTIFICATION TO THE PHYSICIAN IF SATURATION IS 90% IN THE ABSENCE OF MORE SPECIFIC PARAMETERS FROM THE PHYSICIAN. AGENCY MAY PERFORM A RESUMPTION OF CARE VISIT FOLLOWING ANY HOSPITAL ADMISSION. RN/RECORDER HELPER GRAVITY PROSPECTING/ROCKBOARD LATHER TO MONITOR CO-MORBID CONDITIONS LISTED ON THE PLAN OF CARE AND ANY NEW CONDITIONS THAT PRESENT THEMSELVES DURING THIS EPISODE TO IDENTIFY CHANGES AND INTERVENE TO MINIMIZE COMPLICATIONS.] Future Scheduled Test MEDICATION MANAGEMENT; RN/RECORDER HELPER GRAVITY PROSPECTING/ROCKBOARD LATHER TO REVIEW MEDICATIONS FOR INTERACTIONS, EFFECTIVENESS OF DRUG THERAPY, AND SIGNS/SYMPTOMS OF ADVERSE REACTIONS. MAY INSTRUCT AND REINFORCE MEDICATION TEACHING RELATED TO THE USE OF MEDICATIONS, DOSAGE, FREQUENCY, PURPOSE, SIDE EFFECTS, AND TO REPORT COMPLICATIONS. [code = MEDICATION MANAGEMENT; RN/RECORDER HELPER GRAVITY PROSPECTING/ROCKBOARD LATHER TO REVIEW MEDICATIONS FOR INTERACTIONS, EFFECTIVENESS OF DRUG THERAPY, AND SIGNS/SYMPTOMS OF ADVERSE REACTIONS. MAY INSTRUCT AND REINFORCE MEDICATION TEACHING RELATED TO THE USE OF MEDICATIONS, DOSAGE, FREQUENCY, PURPOSE, SIDE EFFECTS, AND TO REPORT COMPLICATIONS.] Future Scheduled Test RISK FOR H OSPITALIZATION; RN TO ASSESS/TEACH, ROCKBOARD LATHER/RECORDER HELPER GRAVITY PROSPECTING TO OBSERVE/TEACH PATIENT/CAREGIVER ON RISK FOR HOSPITALIZATION/EMERGENCY ROOM VISITS, TEACH SIGNS AND SYMPTOMS THAT PUT PATIENT AT RISK, WHEN TO NOTIFY NURSE/PHYSICIAN OF COMPLICATIONS/DECLINE, AND WHEN TO CALL 911. [code = RISK FOR HOSPITALIZATION; RN TO ASSESS/TEACH, ROCKBOARD LATHER/RECORDER HELPER GRAVITY PROSPECTING TO OBSERVE/TEACH PATIENT/CAREGIVER ON RISK FOR HOSPITALIZATION/EMERGENCY ROOM VISITS, TEACH SIGNS AND SYMPTOMS THAT PUT PATIENT AT RISK, WHEN TO NOTIFY NURSE/PHYSICIAN OF COMPLICATIONS/DECLINE, AND WHEN TO CALL 911.] Future Scheduled Test CARDIOVASC ULAR SYSTEM; RN TO ASSESS/TEACH, RECORDER HELPER GRAVITY PROSPECTING/ROCKBOARD LATHER TO OBSERVE/TEACH RELATED TO ALTERED CARDIOVASCULAR STATUS TO MINIMIZE COMPLICATIONS AND REDUCE HOSPITALIZATION. [code = CARDIOVASCULAR SYSTEM; RN TO ASSESS/TEACH, RECORDER HELPER GRAVITY PROSPECTING/ROCKBOARD LATHER TO OBSERVE/TEACH RELATED TO ALTERED CARDIOVASCULAR STATUS TO MINIMIZE COMPLICATIONS AND REDUCE HOSPITALIZATION.] Future Scheduled Test HYPERTENSI ON MANAGEMENT; RN TO ASSESS AND TEACH, RECORDER HELPER GRAVITY PROSPECTING/ROCKBOARD LATHER TO OBSERVE AND TEACH WARNING SIGNS AND SYMPTOMS TO AVOID HOSPITALIZATION. [code = HYPERTENSION MANAGEMENT; RN TO ASSESS AND TEACH, RECORDER HELPER GRAVITY PROSPECTING/ROCKBOARD LATHER TO OBSERVE AND TEACH WARNING SIGNS AND SYMPTOMS TO AVOID HOSPITALIZATION.] Future Scheduled Test RESPIRATOR Y SYSTEM MANAGEMENT; RN TO ASSESS AND TEACH, RECORDER HELPER GRAVITY PROSPECTING/ROCKBOARD LATHER TO OBSERVE AND TEACH RELATED TO ALTERED RESPIRATORY STATUS TO MINIMIZE COMPLICATIONS AND REDUCE HOSPITALIZATION. [code = RESPIRATORY SYSTEM MANAGEMENT; RN TO ASSESS AND TEACH, RECORDER HELPER GRAVITY PROSPECTING/ROCKBOARD LATHER TO OBSERVE AND TEACH RELATED TO ALTERED RESPIRATORY STATUS TO MINIMIZE COMPLICATIONS AND REDUCE HOSPITALIZATION.] Future Scheduled Test PAIN MANAG EMENT; RN TO ASSESS AND TEACH, ROCKBOARD LATHER/RECORDER HELPER GRAVITY PROSPECTING TO OBSERVE AND TEACH AND PROVIDE EDUCATION ON PAIN MANAGEMENT TECHNIQUES. [code = PAIN MANAGEMENT; RN TO ASSESS AND TEACH, ROCKBOARD LATHER/RECORDER HELPER GRAVITY PROSPECTING TO OBSERVE AND TEACH AND PROVIDE EDUCATION ON PAIN MANAGEMENT TECHNIQUES.] Future Scheduled Test CANCER MAN AGEMENT; RN TO ASSESS AND TEACH, ROCKBOARD LATHER/RECORDER HELPER GRAVITY PROSPECTING TO OBSERVE AND TEACH AND PROVIDE EDUCATION ON CANCER. [code = CANCER MANAGEMENT; RN TO ASSESS AND TEACH, ROCKBOARD LATHER/RECORDER HELPER GRAVITY PROSPECTING TO OBSERVE AND TEACH AND PROVIDE EDUCATION ON CANCER.] Future Scheduled Test RN TO ASSE SS AND TEACH, RECORDER HELPER GRAVITY PROSPECTING/ROCKBOARD LATHER TO OBSERVE AND TEACH FOR SIGNS AND SYMPTOMS OF SEPSIS AND/OR POST-SEPSIS SYNDROME AND INTERVENE TO MINIMIZE COMPLICATIONS. RN/RECORDER HELPER GRAVITY PROSPECTING/ROCKBOARD LATHER TO PROVIDE SKILLED TEACHING TO PATIENT/CAREGIVER ON SEPSIS AND SELF-MANAGEMENT TECHNIQUES. RN/RECORDER HELPER GRAVITY PROSPECTING/ROCKBOARD LATHER TO MONITOR PATIENT/CAREGIVER ADHERENCE TO MONITOR AND RECORD VITAL SIGNS INCLUDING TEMPERATURE, HEART RATE, RESPIRATIONS, AND SYMPTOMS. [code = RN TO ASSESS AND TEACH, RECORDER HELPER GRAVITY PROSPECTING/ROCKBOARD LATHER TO OBSERVE AND TEACH FOR SIGNS AND SYMPTOMS OF SEPSIS AND/OR POST-SEPSIS SYNDROME AND INTERVENE TO MINIMIZE COMPLICATIONS. RN/RECORDER HELPER GRAVITY PROSPECTING/ROCKBOARD LATHER TO PROVIDE SKILLED TEACHING TO PATIENT/CAREGIVER ON SEPSIS AND SELF-MANAGEMENT TECHNIQUES. RN/RECORDER HELPER GRAVITY PROSPECTING/ROCKBOARD LATHER TO MONITOR PATIENT/CAREGIVER ADHERENCE TO MONITOR AND RECORD VITAL SIGNS INCLUDING TEMPERATURE, HEART RATE, RESPIRATIONS, AND SYMPTOMS. ] Future Scheduled Test FALL REDUC TION MANAGEMENT; RN TO ASSESS AND OBSERVE, RECORDER HELPER GRAVITY PROSPECTING/ROCKBOARD LATHER TO OBSERVE FALL RISK FACTORS AND EDUCATE PATIENT/CAREGIVER ON STRATEGIES TO MINIMIZE THE RISK OF FALLING. [code = FALL REDUCTION MANAGEMENT; RN TO ASSESS AND OBSERVE, RECORDER HELPER GRAVITY PROSPECTING/ROCKBOARD LATHER TO OBSERVE FALL RISK FACTORS AND EDUCATE [...] TO EVALUATE, OBSERVE / ASSESS, AND MONITOR, COAT OPERATOR INSULATOR TO OBSERVE AND MONITOR, PROVIDE SKILLED THERAPEUTIC INTERVENTION, ACTIVITY, EDUCATION, AND TRAINING TO ADDRESS; DEFICITS IN STRENGTH/BALANCE/ENDURANCE, AND TO INCREASE SAFETY AND INDEPENDENCE WITH ADLS, FUNCTIONAL TRANSFERS/MOBILITY, HOME MANAGEMENT TASKS. MD OFFICE OF DR JONH CHE NOTIFIED OF COMPLETION OF OCCUPATIONAL THERAPY EVALUATION AND PLAN OF CARE. BATHING/SHOWERING (OT/COAT OPERATOR INSULATOR) DRESSING (OT/DUSTY) ACTIVITIES OF DAILY LIVING (OT/COAT OPERATOR INSULATOR) MEAL PREPARATION AND CLEANUP (OT/DUSTY) BATH/SHOWER TRANSFER (OT/DUSTY) HOME ACTIVITY / EXERCISE PROGRAM (OT/COAT OPERATOR INSULATOR) POSTURAL CONTROL/BALANCE (OT/DUSTY) OT/COAT OPERATOR INSULATOR MAY EDUCATE ON PAIN MANAGEMENT CLINICALLY INDICATED, INCLUDING NON-PHARMACOLOGICAL PAIN REDUCTION TECHNIQUES AND USE OF CRYOTHERAPY OR HEAT UP TO 20 MIN AT A TIME FOR PAIN MANAGEMENT. OT/DUSTY TO INSTRUCT PATIENT/CAREGIVER ON RISK FOR HOSPITALIZATION/EMERGENCY ROOM VISITS, TEACH SIGNS AND SYMPTOMS THAT PUT PATIENT AT RISK, WHEN TO NOTIFY NURSE/PHYSICIAN OF COMPLICATIONS/DECLINE, AND WHEN TO CALL 911. OT / DUSTY TO IDENTIFY FALL RISK FACTORS; EDUCATE THE PATIENT/CAREGIVER ON WAYS TO REDUCE FALL RISK FACTORS AND ESTABLISH HOME EXERCISE PROGRAM TO MINIMIZE FALL RISK. MAY TEACH THE PATIENT FLOOR RECOVERY WHEN CLINICALLY APPROPRIATE. [code = AGENCY MAY PERFORM A RESUMPTION OF CARE VISIT FOLLOWING ANY HOSPITAL ADMISSION. OT TO EVALUATE, OBSERVE / ASSESS, AND MONITOR, DUSTY TO OBSERVE AND MONITOR, PROVIDE SKILLED THERAPEUTIC INTERVENTION, ACTIVITY, EDUCATION, AND TRAINING TO ADDRESS; DEFICITS IN STRENGTH/BALANCE/ENDURANCE, AND TO INCREASE SAFETY AND INDEPENDENCE WITH ADLS, FUNCTIONAL TRANSFERS/MOBILITY, HOME MANAGEMENT TASKS. MD OFFICE OF DR JONH CHE NOTIFIED OF COMPLETION OF OCCUPATIONAL THERAPY EVALUATION AND PLAN OF CARE. BATHING/SHOWERING (OT/DUSTY) DRESSING (OT/COAT OPERATOR INSULATOR) ACTIVITIES OF DAILY LIVING (OT/DUSTY) MEAL PREPARATION AND CLEANUP (OT/COAT OPERATOR INSULATOR) BATH/SHOWER TRANSFER (OT/COAT OPERATOR INSULATOR) HOME ACTIVITY / EXERCISE PROGRAM (OT/COAT OPERATOR INSULATOR) POSTURAL CONTROL/BALANCE (OT/DUSTY) OT/DUSTY MAY EDUCATE ON PAIN MANAGEMENT CLINICALLY INDICATED, INCLUDING NON-PHARMACOLOGICAL PAIN REDUCTION TECHNIQUES AND USE OF CRYOTHERAPY OR HEAT UP TO 20 MIN AT A TIME FOR PAIN MANAGEMENT. OT/COAT OPERATOR INSULATOR TO INSTRUCT PATIENT/CAREGIVER ON RISK FOR HOSPITALIZATION/EMERGENCY ROOM VISITS, TEACH SIGNS AND SYMPTOMS THAT PUT PATIENT AT RISK, WHEN TO NOTIFY NURSE/PHYSICIAN OF COMPLICATIONS/DECLINE, AND WHEN TO CALL 911. OT / DUSTY TO IDENTIFY FALL RISK FACTORS; EDUCATE THE [...] End Date/Time Encounter Type Admission Type Attending [facility] Care Department Encounter ID Discharge Date Discharge Status Discharge Condition Discharge Reason Percent Goals Met 2024-10-12 00:00:00 2024-12-09 00:00:00 Outpatient NEW ADMISSION ANNALISA ROLAND [facility] [id number] 2024-12-09 00:00:00 DISCHARGE TO HOME OR SELF CARE INDEPENDEN T IN THE [facility] - GOALS MET 96.30
--- OUTSIDE RECORDS SUMMARY | 2024-12-08 20:00 | XMS_ITS | Clinical Summary ---
Author Organization Unknown Care Team Providers Care Ski Molder Name Role Phone YANE OSORIO, JONH Unavailable Unavailable LUAN OT, ANNALISA Unavailable Unavailable JOHANA PT, LORENZO Unavailable Unavailable OLVIN PRODUCTION MACHINE SHOP SUPERVISOR, CHIQUITA Unavailable Unavailable Payers Payer Name Policy Type Policy Number Effective Date Expira tion Date HUMANA.ANN MARIE.PPO.C.AUTH [id number] Problems Condition Name Condition Details Condition Category [...] 200 mg tablet 10-01 00:00: 00 Yes [id number] SLE 1 tablet TWICE DAILY 1 tablet TWICE DAILY (route: oral) Med Classific ation: Anti-Infe ctive Agents bupropion HCl 75 mg tablet 09-27 00:00: 00 Yes [id number] SMOKING CESSATION 1 tablet TWICE DAILY 1 tablet TWICE DAILY (route: oral) Med Classific ation: Central Nervous System Agents ondansetron HCl 4 mg tablet 09-27 00:00: 00 Yes [id number] NAUSEA 1 tablet ONCE EVERY 8 HOURS NEEDED 1 tablet ONCE EVERY 8 HOURS NEEDED (route: oral) Med Classific ation: Gastroint estinal Therapy Agents rosuvastati n 40 mg tablet 09-27 00:00: 00 Yes [id number] CHOLESTEROL 1 tablet DAILY 1 tablet DAILY (route: oral) Med Classific ation: Cardiovas cular Therapy Agents tramadol 50 mg tablet 09-27 00:00: 00 Yes [id number] PAIN 1 tablet EVERY 6 HOURS NEEDED 1 tablet EVERY 6 HOURS NEEDED (route: oral) Med Classific ation: Analgesic , Anti-infl ammatory or Antipyret ic estradiol 0.01% (0.1 mg/gram) vaginal cream 16 00:00: 00 Yes [id number] HORMONE 1 inch VAGINALLY ONCE DAILY FOR 2 WEEKS THEN 3 TIMES 1 inch VAGINALLY ONCE DAILY FOR 2 WEEKS THEN 3 TIMES (route: vaginal) Med Classific ation: Vaginal Products sulfamethox azole 800 mg-trimetho prim 160 mg tablet 14 00:00: 00 Yes [id number] ANTIBIOTIC 1 tablet 2 TIMES DAILY 1 tablet 2 TIMES DAILY (route: oral) Med Classific ation: Anti-Infe ctive Agents sodium chloride 0.9 % injection syringe 09-13 00:00: 00 10-12 00:00 :00 No [id number] Per instruc tions Per instructio ns (route: injection) Med Classific ation: Electroly te Balance-N utritiona l Products hydrocodone 5 mg-acetamin ophen 325 mg tablet 10-31 00:00: 00 Yes [id number] NEEDED FOR PAIN 1-2 tablet EVERY 8 [...] PHYSICIANS DR DENA HERNANDEZ PCP, DR IQBAL LOOM FIXER HELPER TO OBSERVE AND ASSESS, STATE FIRE MARSHAL/SHEET MILL SUPERVISOR TO OBSERVE FOR RISK FOR FALLS AND INSTRUCT IN FALL PREVENTION, HOME SAFETY, MEDICATION MANAGEMENT, INFECTION PREVENTION, AND NUTRITION MANAGEMENT. RN/STATE FIRE MARSHAL/SHEET MILL SUPERVISOR NURSE MAY PERFORM O2 SATURATION LEVEL ON ADMISSION AND PRN FOR SOB AND AMS FOR RN TO ASSESS/STATE FIRE MARSHAL TO OBSERVE PATIENT, WITH NOTIFICATION TO THE PHYSICIAN IF SATURATION IS 90% IN THE ABSENCE OF MORE SPECIFIC PARAMETERS FROM THE PHYSICIAN. AGENCY MAY PERFORM A RESUMPTION OF CARE VISIT FOLLOWING ANY HOSPITAL ADMISSION. RN/STATE FIRE MARSHAL/SHEET MILL SUPERVISOR TO MONITOR CO-MORBID CONDITIONS LISTED ON THE PLAN OF CARE AND ANY NEW CONDITIONS THAT PRESENT THEMSELVES DURING THIS EPISODE TO IDENTIFY CHANGES AND INTERVENE TO MINIMIZE COMPLICATIONS. [code = RN TO OBSERVE, ASSESS, EVALUATE, AND DEVELOP AN INDIVIDUALIZED PLAN OF CARE. AGENCY MAY ACCEPT ORDERS FROM CONSULTING PHYSICIANS DR DENA HERNANDEZ PCP, DR IQBAL LOOM FIXER HELPER TO OBSERVE AND ASSESS, STATE FIRE MARSHAL/SHEET MILL SUPERVISOR TO OBSERVE FOR RISK FOR FALLS AND INSTRUCT IN FALL PREVENTION, HOME SAFETY, MEDICATION MANAGEMENT, INFECTION PREVENTION, AND NUTRITION MANAGEMENT. RN/STATE FIRE MARSHAL/SHEET MILL SUPERVISOR NURSE MAY PERFORM O2 SATURATION LEVEL ON ADMISSION AND PRN FOR SOB AND AMS FOR RN TO ASSESS/STATE FIRE MARSHAL TO OBSERVE PATIENT, WITH NOTIFICATION TO THE PHYSICIAN IF SATURATION IS 90% IN THE ABSENCE OF MORE SPECIFIC PARAMETERS FROM THE PHYSICIAN. AGENCY MAY PERFORM A RESUMPTION OF CARE VISIT FOLLOWING ANY HOSPITAL ADMISSION. RN/STATE FIRE MARSHAL/SHEET MILL SUPERVISOR TO MONITOR CO-MORBID CONDITIONS LISTED ON THE PLAN OF CARE AND ANY NEW CONDITIONS THAT PRESENT THEMSELVES DURING THIS EPISODE TO IDENTIFY CHANGES AND INTERVENE TO MINIMIZE COMPLICATIONS.] Future Scheduled Test MEDICATION MANAGEMENT; RN/STATE FIRE MARSHAL/SHEET MILL SUPERVISOR TO REVIEW MEDICATIONS FOR INTERACTIONS, EFFECTIVENESS OF DRUG THERAPY, AND SIGNS/SYMPTOMS OF ADVERSE REACTIONS. MAY INSTRUCT AND REINFORCE MEDICATION TEACHING RELATED TO THE USE OF MEDICATIONS, DOSAGE, FREQUENCY, PURPOSE, SIDE EFFECTS, AND TO REPORT COMPLICATIONS. [code = MEDICATION MANAGEMENT; RN/STATE FIRE MARSHAL/SHEET MILL SUPERVISOR TO REVIEW MEDICATIONS FOR INTERACTIONS, EFFECTIVENESS OF DRUG THERAPY, AND SIGNS/SYMPTOMS OF ADVERSE REACTIONS. MAY INSTRUCT AND REINFORCE MEDICATION TEACHING RELATED TO THE USE OF MEDICATIONS, DOSAGE, FREQUENCY, PURPOSE, SIDE EFFECTS, AND TO REPORT COMPLICATIONS.] Future Scheduled Test RISK FOR H OSPITALIZATION; RN TO ASSESS/TEACH, SHEET MILL SUPERVISOR/STATE FIRE MARSHAL TO OBSERVE/TEACH PATIENT/CAREGIVER ON RISK FOR HOSPITALIZATION/EMERGENCY ROOM VISITS, TEACH SIGNS AND SYMPTOMS THAT PUT PATIENT AT RISK, WHEN TO NOTIFY NURSE/PHYSICIAN OF COMPLICATIONS/DECLINE, AND WHEN TO CALL 911. [code = RISK FOR HOSPITALIZATION; RN TO ASSESS/TEACH, SHEET MILL SUPERVISOR/STATE FIRE MARSHAL TO OBSERVE/TEACH PATIENT/CAREGIVER ON RISK FOR HOSPITALIZATION/EMERGENCY ROOM VISITS, TEACH SIGNS AND SYMPTOMS THAT PUT PATIENT AT RISK, WHEN TO NOTIFY NURSE/PHYSICIAN OF COMPLICATIONS/DECLINE, AND WHEN TO CALL 911.] Future Scheduled Test CARDIOVASC ULAR SYSTEM; RN TO ASSESS/TEACH, STATE FIRE MARSHAL/SHEET MILL SUPERVISOR TO OBSERVE/TEACH RELATED TO ALTERED CARDIOVASCULAR STATUS TO MINIMIZE COMPLICATIONS AND REDUCE HOSPITALIZATION. [code = CARDIOVASCULAR SYSTEM; RN TO ASSESS/TEACH, STATE FIRE MARSHAL/SHEET MILL SUPERVISOR TO OBSERVE/TEACH RELATED TO ALTERED CARDIOVASCULAR STATUS TO MINIMIZE COMPLICATIONS AND REDUCE HOSPITALIZATION.] Future Scheduled Test HYPERTENSI ON MANAGEMENT; RN TO ASSESS AND TEACH, STATE FIRE MARSHAL/SHEET MILL SUPERVISOR TO OBSERVE AND TEACH WARNING SIGNS AND SYMPTOMS TO AVOID HOSPITALIZATION. [code = HYPERTENSION MANAGEMENT; RN TO ASSESS AND TEACH, STATE FIRE MARSHAL/SHEET MILL SUPERVISOR TO OBSERVE AND TEACH WARNING SIGNS AND SYMPTOMS TO AVOID HOSPITALIZATION.] Future Scheduled Test RESPIRATOR Y SYSTEM MANAGEMENT; RN TO ASSESS AND TEACH, STATE FIRE MARSHAL/SHEET MILL SUPERVISOR TO OBSERVE AND TEACH RELATED TO ALTERED RESPIRATORY STATUS TO MINIMIZE COMPLICATIONS AND REDUCE HOSPITALIZATION. [code = RESPIRATORY SYSTEM MANAGEMENT; RN TO ASSESS AND TEACH, STATE FIRE MARSHAL/SHEET MILL SUPERVISOR TO OBSERVE AND TEACH RELATED TO ALTERED RESPIRATORY STATUS TO MINIMIZE COMPLICATIONS AND REDUCE HOSPITALIZATION.] Future Scheduled Test PAIN MANAG EMENT; RN TO ASSESS AND TEACH, SHEET MILL SUPERVISOR/STATE FIRE MARSHAL TO OBSERVE AND TEACH AND PROVIDE EDUCATION ON PAIN MANAGEMENT TECHNIQUES. [code = PAIN MANAGEMENT; RN TO ASSESS AND TEACH, SHEET MILL SUPERVISOR/STATE FIRE MARSHAL TO OBSERVE AND TEACH AND PROVIDE EDUCATION ON PAIN MANAGEMENT TECHNIQUES.] Future Scheduled Test CANCER MAN AGEMENT; RN TO ASSESS AND TEACH, SHEET MILL SUPERVISOR/STATE FIRE MARSHAL TO OBSERVE AND TEACH AND PROVIDE EDUCATION ON CANCER. [code = CANCER MANAGEMENT; RN TO ASSESS AND TEACH, SHEET MILL SUPERVISOR/STATE FIRE MARSHAL TO OBSERVE AND TEACH AND PROVIDE EDUCATION ON CANCER.] Future Scheduled Test RN TO ASSE SS AND TEACH, STATE FIRE MARSHAL/SHEET MILL SUPERVISOR TO OBSERVE AND TEACH FOR SIGNS AND SYMPTOMS OF SEPSIS AND/OR POST-SEPSIS SYNDROME AND INTERVENE TO MINIMIZE COMPLICATIONS. RN/STATE FIRE MARSHAL/SHEET MILL SUPERVISOR TO PROVIDE SKILLED TEACHING TO PATIENT/CAREGIVER ON SEPSIS AND SELF-MANAGEMENT TECHNIQUES. RN/STATE FIRE MARSHAL/SHEET MILL SUPERVISOR TO MONITOR PATIENT/CAREGIVER ADHERENCE TO MONITOR AND RECORD VITAL SIGNS INCLUDING TEMPERATURE, HEART RATE, RESPIRATIONS, AND SYMPTOMS. [code = RN TO ASSESS AND TEACH, STATE FIRE MARSHAL/SHEET MILL SUPERVISOR TO OBSERVE AND TEACH FOR SIGNS AND SYMPTOMS OF SEPSIS AND/OR POST-SEPSIS SYNDROME AND INTERVENE TO MINIMIZE COMPLICATIONS. RN/STATE FIRE MARSHAL/SHEET MILL SUPERVISOR TO PROVIDE SKILLED TEACHING TO PATIENT/CAREGIVER ON SEPSIS AND SELF-MANAGEMENT TECHNIQUES. RN/STATE FIRE MARSHAL/SHEET MILL SUPERVISOR TO MONITOR PATIENT/CAREGIVER ADHERENCE TO MONITOR AND RECORD VITAL SIGNS INCLUDING TEMPERATURE, HEART RATE, RESPIRATIONS, AND SYMPTOMS. ] Future Scheduled Test FALL REDUC TION MANAGEMENT; RN TO ASSESS AND OBSERVE, STATE FIRE MARSHAL/SHEET MILL SUPERVISOR TO OBSERVE FALL RISK FACTORS AND EDUCATE PATIENT/CAREGIVER ON STRATEGIES TO MINIMIZE THE RISK OF FALLING. [code = FALL REDUCTION MANAGEMENT; RN TO ASSESS AND OBSERVE, STATE FIRE MARSHAL/SHEET MILL SUPERVISOR TO OBSERVE FALL RISK FACTORS AND EDUCATE [...] TO EVALUATE, OBSERVE / ASSESS, AND MONITOR, ELECTRICAL PANEL BUILDER TO OBSERVE AND MONITOR, PROVIDE SKILLED THERAPEUTIC INTERVENTION, ACTIVITY, EDUCATION, AND TRAINING TO ADDRESS; DEFICITS IN STRENGTH/BALANCE/ENDURANCE, AND TO INCREASE SAFETY AND INDEPENDENCE WITH ADLS, FUNCTIONAL TRANSFERS/MOBILITY, HOME MANAGEMENT TASKS. MD OFFICE OF DR JONH CHE NOTIFIED OF COMPLETION OF OCCUPATIONAL THERAPY EVALUATION AND PLAN OF CARE. BATHING/SHOWERING (OT/ELECTRICAL PANEL BUILDER) DRESSING (OT/DUSTY) ACTIVITIES OF DAILY LIVING (OT/ELECTRICAL PANEL BUILDER) MEAL PREPARATION AND CLEANUP (OT/DUSTY) BATH/SHOWER TRANSFER (OT/DUSTY) HOME ACTIVITY / EXERCISE PROGRAM (OT/ELECTRICAL PANEL BUILDER) POSTURAL CONTROL/BALANCE (OT/DUSTY) OT/ELECTRICAL PANEL BUILDER MAY EDUCATE ON PAIN MANAGEMENT CLINICALLY INDICATED, [...] AND PLAN OF CARE. BATHING/SHOWERING (OT/DUSTY) DRESSING (OT/ELECTRICAL PANEL BUILDER) ACTIVITIES OF DAILY LIVING (OT/DUSTY) MEAL PREPARATION AND CLEANUP (OT/ELECTRICAL PANEL BUILDER) BATH/SHOWER TRANSFER (OT/ELECTRICAL PANEL BUILDER) HOME ACTIVITY / EXERCISE PROGRAM (OT/ELECTRICAL PANEL BUILDER) POSTURAL CONTROL/BALANCE (OT/DUSTY) OT/DUSTY MAY EDUCATE ON PAIN MANAGEMENT CLINICALLY INDICATED, INCLUDING NON-PHARMACOLOGICAL PAIN REDUCTION TECHNIQUES AND USE OF CRYOTHERAPY OR HEAT UP TO 20 MIN AT A TIME FOR PAIN MANAGEMENT. OT/ELECTRICAL PANEL BUILDER TO INSTRUCT PATIENT/CAREGIVER ON RISK FOR HOSPITALIZATION/EMERGENCY [...] End Date/Time Encounter Type Admission Type Attending [facility] Care Department Encounter ID Discharge Date Discharge Status Discharge Condition Discharge Reason Percent Goals Met 2024-10-12 00:00:00 2024-12-09 00:00:00 Outpatient NEW ADMISSION ANNALISA ROLAND [facility] [id number] 2024-12-09 00:00:00 DISCHARGE TO HOME OR SELF CARE INDEPENDEN T IN THE COMMUNITY HH - GOALS MET 96.30
--- OUTSIDE RECORDS SUMMARY | 2024-12-20 07:18 | XMS_ITS | Encounter Summary ---
Author Organization [facility] Address [address] [place] [address] Care Team Providers Care Biological Technical Officer Name Role Phone Luis Hatfield MD Primary Care Provider [phone] Reason for Referral * Imaging (Routine) - Closed Specialty Diagnoses / Procedures Referred By Stephen parks Referred To Contact Radiology Diagnoses Malignant neoplasm of urinary bladder, unspecified site (CMS/HCC) Procedures IR Nephrostomy Tube Exchange Kristen Bryant APRN [address] [place] [address] Phone: tel: fax: Referral ID Status Reason Start Date Expiration Date Visits Re quested Visits Authorized [id number] Closed 10/09/2024 04/10/2026 1 1 Reason for Visit * Imaging (Routine) - Closed Specialty Diagnoses / Procedures Referred By Stephen parks Referred To Contact Radiology Diagnoses Malignant neoplasm of urinary bladder, unspecified site (CMS/HCC) Procedures IR Nephrostomy Tube Exchange Kristen Bryant APRN [address] [place] [address] Phone: tel: fax: Referral ID Status Reason Start Date Expiration Date Visits Re quested Visits Authorized [id number] Closed 10/09/2024 04/10/2026 1 1 Encounter Details Date Type Department Care Team (Latest Contact Info) Description 12/20/2024 7:18 AM EDT - 12/20/2024 11:59 PM EDT Hospital Encounter [facility] Interventional Radiology [address] [place] [address] AidaMihirLiliana Malignant neoplasm of urinary bladder, unspecified [...] in the past 12 m [facility], were you homeless or living in [...] drink first t kimberlyn in the morning (EYE-BUSINESS DEVELOPMENT COORDINATOR) to steady your nerves or to get rid of a hangover? 0 09/11/2024 CAGE Questionnaire Score 0 025 Utilities Answer Date Recorded In the past 12 months has th [employer], gas, oil, or water company threatened to [...] call: Vascular & Interventional Radiology Clinic at [phone] Monday - Monday 8:00 AM to 4:30 PM After hours, weekends, and holidays please call [phone] and ask for the Interventional Radiology provider/Resident on-call For Emergencies please go to the nearest Emergency Room or dial 911. Intervention Radiology Appointments: If you need to reschedule a procedure, please call our Schedulers at [phone], option 4. If you need to schedule or reschedule a clinic appointment, please call [phone]. [facility] Vascular and Interventional Radiology Clinic [address] [place] [address] documented in this encounter Medications at Time of Discharge buPROPion (Wellbutrin) 75 MG tablet Take 1 tablet by mouth 2 times a day. dexamethasone (Decadron) 4 MG tablet Take 2 tablets by mouth in the morning and 2 tablets in the evening. Take with meals. For 3 days , starting day after Chemo , for 6 cycles . . Ferrous Sulfate (IRON PO) Take 1 tablet by mouth daily. hydroxychloroqui ne (Plaquenil) 200 MG tablet Take 1 tablet by mouth in the morning and 1 tablet before bedtime. irbesartan (Avapro) 300 MG tablet Take 1 tablet by mouth in the morning. multivitamin (Theragran) tablet Take 1 tablet by mouth in the morning. ondansetron (Zofran) 4 MG tablet 1 tablet Orally every 8 hours as needed 09/27/2024 Probiotic Product (PROBIOTIC DAILY PO) Take 1 tablet by mouth in the morning. prochlorperazine (Compazine) 10 MG tablet Take 1 tablet by mouth every 6 hours as needed for nausea or vomiting. rosuvastatin (Crestor) 40 MG tablet Take 1 tablet by mouth 1 time each day. 11/02/2023 sodium chloride 0.9 % flush Infuse 10 mL into a venous catheter as needed for line care for up to 50 doses. Infuse as needed for percutaneous nephrostomy tube 500 mL 09/13/2024 Syringe, Disposable, (Syringe 2-3 ML) 3 ML misc 09/13/2024 traMADol (Ultram) 50 MG tablet Take 1 tablet by mouth every 6 hours as needed. 09/27/2024 Turmeric (QC TUMERIC COMPLEX PO) Take 1 tablet by mouth in the morning. documented as of this encounter Miscellaneous Notes * Dagoberto Parra Liliana - 12/20/2024 9:46 AM EDT Images from the original note were not included. [id number] Percutaneous Nephrostomy You had a procedure called [...] and warm water or an alcohol-based hand house cleaner supervisor ?? Disposable medical gloves - they do [...] 4. Wipe the skin gently in a um[place]illa tribe. Move away from the drain tube in [...] hands with soap & water or hand house cleaner supervisor and put on a new pair of [...] hands with soap and water or hand house cleaner supervisor. They can also put on a new [...] syringe to the needleless port with a [id number] motion. ? Flush the tube: Push on [...] your tube from getting blocked. * [facility] Liliana Par[facility] - 12/20/2024 9:46 AM EDT Images from the original note were not included. [id number] Discharge Instructions for Percutaneous Nephrostomy You had [...] symptoms Last Reviewed Date: 2022 00:00:00 ?? [id number] [employer]. All rights reserved. This information is not [...] been discussed with the patient and/or their risk control field representative. All questions answered and they agree [...] had enough tubes placed 09/12/2024 with 8 Kyrgyz bilaterally. Shedoes not report any symptoms or [...] 93%. Results Review {Vanishing Link Review Results :[id number] I have reviewed the latest lab and [...] Care Team (Late st Contact Info) Description 02/05/2025 4:30 PM EDT Office Visit [facility] [address] [place] [address] Ochoa Matias MD [address] [place] [address] documented as of this encounter Procedures Procedure [...] bilateral percutaneous nephrostomy tube exchange using 10 Kyrgyz locking pigtail drainage catheters. PLAN: Nephrostomy tube [...] for routine bilateral nephrostomy tube exchange. TECHNIQUE: Side Hemmer: Sundeep Bowman MD Supervising attending: Liang Rodriguez [...] antisepsis, followed by sterile barrier draping A edger feeder film was performed to document the location [...] were no immediate complication. COMPARISON: None. FINDINGS: Community Assistant images and nephrostograms demonstrate bilateral percutaneous nephrostomy tubes in expected location. COMPLICATION: No. Procedure Note Liang Rodriguez MD - 12/20/2024 CLINICAL INDICATION: 69-year-old female who presents for routine bilateral nephrostomy tubeexchange. TECHNIQUE: Side Hemmer: Sundeep Bowman MD Supervising attending: Liang Rodriguez [...] cutaneousantisepsis, followed by sterile barrier draping A edger feeder film was performed to document the location [...] there were no immediatecomplication. COMPARISON: None. FINDINGS: Community Assistant images and nephrostograms demonstrate bilateral percutaneousnephrostomy tubes [...] on 12/20/2024 10:50 AM Kristen Donovan Manny SPECIAL EVENTS COORDINATOR IMG IR PROCEDURES Final Result documented in [...] documented as of this encounter Care Teams Biological Technical Officer Relationship Specialty Start Date End Date Luis Hatfield MD [address] [place] [address] PCP - General 07/24/24 documented as of this encounter
--- OUTSIDE RECORDS SUMMARY | 2024-12-26 10:30 | XMS_ITS | Encounter Summary ---
Author Organization [facility] Address [address] [id number] Care Team Providers Care Boiler Blower Name Role Phone Luis Hatfield MD Primary Care Provider [phone] Reason for Visit * Reason Comments Seropositive rheumatoid arthritis 6 evronica h follow up Encounter Details Date Type Department Care Team (Latest Contact Info) Description 12/26/2024 10:30 AM EDT Office Visit [facility] RHEUMATOLOGY [address] [phone] Nguyen Romero APRN [address] [address] Seropositive rheumatoid arthritis (Primary Dx); Systemic lupus [...] DNA 13.0 (<4.0), Centromere and Chromatin normal, ELECTRONICS MANUFACTURER and SCL 70 normal, Christine normal, SSA and SSB normal, total bilirubin 1.4, Glucose 117, CMP was ok otherwise, CCP negative, CRP Normal, RF 110 (<14.0 normal), ESR normal, TSH normal * Medications/treatments/interventions tried include: Tylenol, meloxicam, Advil, CBD oil, Tumeric, Aspirin, Plaquenil, she has seen podiatry (Miky Steele DPM), she has seen paint grinder stone mill (Dr. Jed Trevino), Ketamine, gabapentin, She has [...] lesion. She brought in medical records from [facility] for us to review. Subjective Review of [...] DNA 13.0 (<4.0), Centromere and Chromatin normal, ELECTRONICS MANUFACTURER and SCL 70 normal, Christine normal, SSA and SSB normal, total bilirubin 1.4, Glucose 117, CMP was ok otherwise, CCP negative, CRP Normal, RF 110 (<14.0 normal), ESR normal, TSH normal * Medications/treatments/interventions tried include: Tylenol, meloxicam, Advil, CBD oil, Tumeric, Aspirin, Plaquenil, she has seen podiatry (Miky Steele DPM), she has seen paint grinder stone mill (Dr. Jed Trevino), Ketamine, gabapentin, She has [...] 06/28/2025) for Dr. Wells. Nguyen Romero APRN [facility] of [place] documented in this encounter Plan of Treatment Upcoming Encounters Date Type Department Care Team (Late st Contact Info) Description 07/09/2025 10:45 AM EST Office Visit [facility] RHEUMATOLOGY [address] [place] [phone] Vicente Wells DO [address] [phone] Scheduled Orders Name Type Priority Associated Diagnoses [...] anti-inflammatories documented in this encounter Care Teams Boiler Blower Relationship Specialty Start Date End Date Luis Hatfield MD [address] [facility] [address] [facility] [address] [place] [id number] PCP - General Family Medicine 06/13/24 documented as of this encounter
--- OUTSIDE RECORDS SUMMARY | 2025-01-17 09:25 | XMS_ITS | Clinical Summary ---
Author Organization [facility] Address [address] [place] [address] Care Team Providers Care Program Management Intern Name Role Phone Luis Hatfield MD Primary Care Provider [phone] Allergies Active Allergy Reactions Criticality Noted Date [...] DNA 13.0 (<4.0), Centromere and Chromatin normal, STONEMASON SUPERVISOR and SCL 70 normal, Christine normal, SSA and SSB normal, total bilirubin 1.4, Glucose 117, CMP was ok otherwise, CCP negative, CRP Normal, RF 110 (<14.0 normal), ESR normal, TSH normal * Medications/treatments/interventions tried include: Tylenol, meloxicam, Advil, CBD oil, Tumeric, Aspirin, Plaquenil, she has seen podiatry (Miky Steele DPM), she has seen resin painter (Dr. Jed Trevino), Ketamine, gabapentin, She [...] DNA 13.0 (<4.0), Centromere and Chromatin normal, STONEMASON SUPERVISOR and SCL 70 normal, Christine normal, SSA and SSB normal, total bilirubin 1.4, Glucose 117, CMP was ok otherwise, CCP negative, CRP Normal, RF 110 (<14.0 normal), ESR normal, TSH normal * Medications/treatments/interventions tried include: Tylenol, meloxicam, Advil, CBD oil, Tumeric, Aspirin, Plaquenil, she has seen podiatry (Miky Steele DPM), she has seen resin painter (Dr. Jed Trevino), Ketamine, gabapentin, She [...] DNA 13.0 (<4.0), Centromere and Chromatin normal, STONEMASON SUPERVISOR and SCL 70 normal, Christine normal, SSA and SSB normal, total bilirubin 1.4, Glucose 117, CMP was ok otherwise, CCP negative, CRP Normal, RF 110 (<14.0 normal), ESR normal, TSH normal * Medications/treatments/interventions tried include: Tylenol, meloxicam, Advil, CBD oil, Tumeric, Aspirin, Plaquenil, she has seen podiatry (Miky Steele DPM), she has seen resin painter (Dr. Jed Trevino), Ketamine, gabapentin, She [...] Description 12/26/2024 10:30 AM EDT Office Visit [facility] RHEUMATOLOGY [address] [address] Nguyen Romero APRN Seropositive rheumatoid arthritis (Primary Dx); Systemic lupus erythematosus, unspecified SLE type, unspecified organ involvement status; High risk medication use; Primary osteoarthritis involving multiple joints; NSAID long-term use 12/26/2024 Results Follow-Up [facility] [address] [address] Vicente Wells, 12/26/2024 Results Follow-Up [facility] RHE[facility] [address] [address] Vicente Wells, 12/26/2024 Travel from [...] Description 07/09/2025 10:45 AM EST Office Visit [facility] [address] [place] [address] Vicente Wells DO [address] [facility] [address] [place] [address] Health Maintenance Due Date Last Done Comments [...] Insurance [employer] PPO Care Teams Program Management Intern Relationship Specialty Start Date End Date Luis Hatfield MD [address] [facility] [address] [place] [id number] PCP - General Family Medicine 06/13/24
--- OUTSIDE RECORDS SUMMARY | 2025-01-17 09:25 | XMS_ITS | Encounter Summary ---
Author Organization [facility] Address [address] [place] [phone] Care Team Providers Care Laboratory Operations Coordinator Name Role Phone Luis Hatfield MD Primary Care Provider [phone] Encounter Details Date Type Department Care Team (Late Contact Info) Description 07/12/2024 Telephone [facility] RHEUMATOLOGY [address] [address] Vicente Wells DO [address] [phone] Social History Tobacco Use Types Packs/Day Years [...] Description 07/09/2025 10:45 AM EST Office Visit [facility] RHEUMAT[facility] [address] [address] Vicente Wells DO [address] [phone] documented as of this encounter Visit Diagnoses Not on filedocumented in this encounter Care Teams Laboratory Operations Coordinator Relationship Specialty Start Date End Date Luis Hatfield MD [address] [facility] [address] [place] [address] PCP - General Family Medicine 06/13/24 documented as of this encounter
--- OUTSIDE RECORDS SUMMARY | 2025-01-17 09:25 | XMS_ITS | Encounter Summary ---
Author Organization [facility] Address [address] [phone] Care Team Providers Care Security Assurance Specialist Name Role Phone Luis Hatfield MD Primary Care Provider [phone] Encounter Details Date Type Department Care Team ([facility] Contact Info) Description 07/12/2024 Telephone [facility] RHEUMATOLOGY [address] [address] Santiago Anders MD [address] [id number] Social History Tobacco Use Types Packs/Day Years [...] 07/09/2025 10:45 AM EST Office Visit [facility] RHEUMATOLOGY [address] [address] Vicente Wells DO [address] [address] documented as of this encounter Visit Diagnoses Not on filedocumented in this encounter Care Teams Security Assurance Specialist Relationship Specialty Start Date End Date Luis Hatfield MD 1210 [facility] [address] [place] [id number] PCP - General Family Medicine 06/13/24 documented as of this encounter
--- OUTSIDE RECORDS SUMMARY | 2025-01-17 09:25 | XMS_ITS | Encounter Summary ---
Author Organization Healthcare Address [address] [id number] Care Team Providers Care Production Or Plant Engineer Name Role Phone Luis Hatfield MD Primary Care Provider [phone] Encounter Details Date Type Department Care Team (Late st Contact Info) Description 08/19/2024 Lab Requisition [facility] [address] [place] [address] Ochoa Matias MD [address] [place] [address] Malignant neoplasm of bladder, unspecified (CMS/HCC) Social [...] time in the past 12 m [facility], were you homeless or living in a halfway (including now)? No 07/24/2024 CAGE ASSESSMENT Answer [...] first t kimberlyn in the morning (EYE-SENIOR LOAN OFFICER) to steady your nerves or to get [...] Description 02/05/2025 4:30 PM EDT Office Visit [facility] Multidisciplinary Oncology Clinic [address] [place] [address] Ochoa Matias MD [address] [place] [address] documented as of this encounter Procedures Procedure [...] name Selwyn Geller 09/05/2024 7:35 AM EDT [facility] Comment:[id number], A3 Test Result see scan 09/05/2024 7:35 AM EDT [facility] See Scanned Result 09/05/2024 7:[address] [facility] Tissue 07/23/2024 1:18 PM EST 08/19/2024 1:48 PM EDT us Ochoa Matias MD LAB REF LAB BLOOD AND FLUID ORD Final Result [facility] [address] [place] [address] * - AP Miscellaneous Test (07/23/2024 1:18 PM EST) Test name Selwyn Espinosa Viviane 09/09/2024 8:04 AM EDT [facility] Comment:[id number], A3 Test Result see scan 09/09/2024 8:[address] [facility] See Scanned Result 09/09/2024 8:[address] [facility] Tissue 07/23/2024 1:18 PM EST 08/19/2024 1:48 PM EDT us Ochoa Matias MD LAB REF LAB BLOOD AND FLUID ORD Final Result [facility] [address] [place] [address] documented in this encounter Visit Diagnoses Diagnosis Malignant neoplasm of bladder, unspecified (CMS/HCC) documented in this encounter Additional Health Concerns Assessment Noted Time A Body Mass Index follow-up plan has been documented for the patient 07/25/2024 1:21 PM EST documented as of this encounter Care Teams Production Or Plant Engineer Relationship Specialty Start Date End Date Luis Hatfield MD [address] [place] [address] PCP - General 07/24/24 documented as of this encounter
--- OUTSIDE RECORDS SUMMARY | 2025-01-17 09:26 | XMS_ITS | Encounter Summary ---
Author Organization Healthcare Address [address] [place] [address] Care Team Providers Care Vault Clerk Name Role Phone Luis Hatfield MD Primary Care Provider [phone] Encounter Details Date Type Department Care Team (Late st Contact Info) Description 12/02/2024 Telephone [facility] Interventional Radiology [address] [place] [address] Cecille Escobedo RN CH-VASCULAR & INTERVENTIONAL RADIOLOGY [...] any time in the past 12 m [facility], were you homeless or [...] drink first t kimberlyn in the morning (EYE-SEWER REPAIRER) to steady your nerves or to get [...] Description 02/05/2025 4:30 PM EDT Office Visit [facility] Multidisciplinary Oncology Clinic [address] [place] [address] Ochoa Matias MD [address] [facility] [address] [place] [address] documented as of this encounter Visit Diagnoses [...] documented as of this encounter Care Teams Vault Clerk Relationship Specialty Start Date End Date Luis Hatfield MD [address] [address] PCP - General 07/24/24 documented as of this encounter
--- OUTSIDE RECORDS SUMMARY | 2025-01-17 09:26 | XMS_ITS | Encounter Summary ---
Author Organization Healthcare Address [address] [place] [address] Care Team Providers Care Pump Runner Name Role Phone Luis Hatfield MD Primary Care Provider [phone] Reason for Visit * Reason Onset Date Comments [facility] 11/26/2024 Encounter Details Date Type Department Care Team (Late st Contact Info) Description 11/26/2024 Telephone [facility]id[facility] Oncology Clinic [address] [place] [address] Ochoa Matias MD [address] [place] [address] [facility] Social History Tobacco Use Types Packs/Day [...] any time in the past 12 m [facility], were you homeless or living [...] drink first t kimberlyn in the morning (EYE-PODIATRIST) to steady your nerves or to get [...] Description 02/05/2025 4:30 PM EDT Office Visit [facility] Multidisciplinary Oncology Clinic [address] [place] [address] Ochoa Matias MD [address] [facility] [address] [place] [address] documented as of this encounter Visit Diagnoses [...] documented as of this encounter Care Teams Pump Runner Relationship Specialty Start Date End Date Luis Hatfield MD [address] [address] PCP - General 07/24/24 documented as of this encounter
--- OUTSIDE RECORDS SUMMARY | 2025-01-17 09:26 | XMS_ITS | Encounter Summary ---
Author Organization [facility] Address [address] [place] [address] Care Team Providers Care Personal Banking Representative Name Role Phone Luis Hatfiedl MD Primary Care Provider [phone] Encounter Details Date Type Department Care Team [...] any time in the past 12 m [facility], were you homeless or living in a long term (including now)? No 09/23/2024 CAGE ASSESSMENT Answer [...] drink first t kimberlyn in the morning (EYE-CALL MANAGER) to steady your nerves or to get rid of a hangover? 0 09/11/2024 CAGE Questionnaire Score 0 025 Utilities Answer Date Recorded In the past 12 months has th e InvitedHome, gas, oil, or water company threatened to [...] Description 02/05/2025 4:30 PM EDT Office Visit [facility] Multidisciplinary Oncology Clinic [address] [place] [address] Ochoa Matias MD [address] [place] [address] documented as of this encounter Visit Diagnoses [...] documented as of this encounter Care Teams Personal Banking Representative Relationship Specialty Start Date End Date Luis Hatfield MD 1210 [facility] [address] [place] [address] PCP - General 07/24/24 documented as of this encounter
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
--- OUTSIDE RECORDS SUMMARY | 2025-01-17 09:27 | XMS_ITS | Encounter Summary ---
Author Organization [facility] Address [address] [place] [address] Care Team Providers Care Rental Management Trainee Name Role Phone Luis Hatfield MD Primary Care Provider [phone] Encounter Details Date Type Department Care Team (Late Contact Info) Description 12/26/2024 Results Follow-Up [facility] RHEUMATOLOGY [address] [address] Vicente Wells DO [address] [address] Social History Tobacco Use Types Packs/Day Years [...] Description 07/09/2025 10:45 AM EST Office Visit [facility] RHEUMATOLOGY [address] [address] Vicente Wells DO [address] [phone] documented as of this encounter Visit Diagnoses Not on filedocumented in this encounter Care Teams Rental Management Trainee Relationship Specialty Start Date End Date Luis Hatfield MD [address] [place] [address] [place] [address] PCP - General Family Medicine 06/13/24 documented as of this encounter
--- OUTSIDE RECORDS SUMMARY | 2025-01-17 09:28 | XMS_ITS ---
Author Organization [facility] Address [address] [place] [address] Care Team Providers Care Credit Coordinator Name Role Phone Luis Hatfield MD Primary Care Provider [phone] Active Problems Problem Noted Date Diagnosed Date [...]
--- OUTSIDE RECORDS SUMMARY | 2025-01-17 09:28 | XMS_ITS | Encounter Summary ---
Author Organization [facility] Address [address] [phone] Care Team Providers Care Nutter Up Name Role Phone Luis Hatfield MD Primary Care Provider [phone] Encounter Details Date Type Department Care Team [...] Description 07/09/2025 10:45 AM EST Office Visit [facility] RHEUMATOLOGY [address] [address] Vicente Wells DO [address] [address] documented as of this encounter Visit Diagnoses Not on filedocumented in this encounter Care Teams Nutter Up Relationship Specialty Start Date End Date Luis Hatfield MD [address] [place] [facility] [address] [place] [address] PCP - General Family Medicine 06/13/24 documented as of this encounter
--- OUTSIDE RECORDS SUMMARY | 2025-01-17 09:28 | XMS_ITS | Clinical Summary ---
Author Organization [facility] Address [address] [place] [address] Care Team Providers Care Wool Supplier Name Role Phone Luis Hatfield MD Primary Care Provider [phone] Allergies Active Allergy Reactions Criticality Noted Date [...] Encounter [facility] Interventional Radiology [address] [place] [address] Liliana Parra Malignant neoplasm of urinary bladder, unspecified site (CMS/HCC) Discharge Disposition: Home or Self Care 12/20/2024 Travel 12/02/2024 Telephone [facility] Interventional Radiology [address] [place] [address] Cecille Escobedo RN 11/26/2024 Telephone [facility] Multidisciplinary Oncology Clinic [address] [place] [address] Ochoa Matias MD [facility] 11/01/2024 Telephone [facility] Oncology Clinic [address] [place] [address] Ochoa Matias MD 10/24/2024 Telephone [facility] [address] [place] [address] Ochoa Matias MD [facility] 10/18/2024 Telephone [facility] Oncology Clinic [address] [place] [address] Ochoa Matias MD from Last 3 Months [...] were you homeless or living in a penitentiary (including now)? No 09/23/2024 CAGE ASSESSMENT Answer [...] drink first t kimberlyn in the morning (EYE-WEIGHT REDUCING TECHNICIAN) to steady your nerves or to [...] Description 02/05/2025 4:30 PM EDT Office Visit [facility] Multidisciplinary Oncology Clinic [address] [place] [address] Ochoa Matias MD [address] [place] [address] Health Maintenance Due Date Last Done Comments [facility]-Bone Density Scan 1955 [facility]-Medicare Annual Wellness (AWV) 1955 [facility]-Infant/Child/Adol SDOH Screenings 1955 III-JSECL-23 Vaccine (#1) 1959 [facility]-DTaP,Tdap,and Td Vaccines (1 [...] Completed 07/22/2024 [facility]-Obesity Intervention Completed 025, 12/20/2024, 12/20/2024, Additional history exists HPV Vaccines Aged Out [...] this topic Medical Devices Implanted Type Area Life Sciences Teacher Device Identifier Shelf Expiration Date Model / Serial / Lot Stent Ureteral Double Pigtail Pos 6fr 26cm - S. - [id number] Implanted:Qty: 1 on 07/23/2024 by Ochoa Matias MD at [facility] Stent N/A: [id number] 03/11/2026 [id number] / . / [id number] Procedures Procedure Name Priority Date/Time Associated Diagnosis [...] bilateral percutaneous nephrostomy tube exchange using 10 Panamanian locking pigtail drainage catheters. PLAN: Nephrostomy tube [...] for routine bilateral nephrostomy tube exchange. TECHNIQUE: D[employer]ified Cro[employer] I Farmworker: Sundeep Bowman MD Supervising attending: Liang Rodriguez [...] antisepsis, followed by sterile barrier draping A electrical installation inspector film was performed to document the location [...] were no immediate complication. COMPARISON: None. FINDINGS: Single Spindle Screw Machine Operator images and nephrostograms demonstrate bilateral percutaneous nephrostomy tubes in expected location. COMPLICATION: No. Procedure Note Liang Rodriguez MD - 12/20/2024 CLINICAL INDICATION: 69-year-old female who presents for routine bilateral nephrostomy tubeexchange. TECHNIQUE: Diversified Crops I Farmworker: Sundeep Bowman MD Supervising attending: Liang Rodriguez [...] cutaneousantisepsis, followed by sterile barrier draping A electrical installation inspector film was performed to document the location [...] there were no immediatecomplication. COMPARISON: None. FINDINGS: Single Spindle Screw Machine Operator images and nephrostograms demonstrate bilateral [...] MD on 12/20/2024 10:50 AM Kristen Bryant HEAD [employer] AUT[employer]IC IMG IR PROCEDURES Final Result * Hepatitis C Antibody - ED (07/22/2024 7:54 PM EST) Hepatitis C Antibody Negative Negative 07/22/2024 9:11 PM EST [facility] Blood Venous blood specimen / Unknown Venipuncture / Unknown 07/22/2024 7:54 PM EST 07/22/2024 8:09 PM EST Lu[facility] LAB BLOOD ORDERABLES Missy l Result [facility] [address] [place] [address] from Last 3 Months or Most Recently Relevant to Health Maintenance Insurance [facility] MEDICARE Advance Directives * Full Code [...] Patient has decision-making capacity? Yes Care Teams Wool Supplier Relationship Specialty Start Date End Date Luis Hatfield MD [address] [id number] PCP - General 07/24/24
--- OUTSIDE RECORDS SUMMARY | 2025-01-17 09:28 | XMS_ITS | Encounter Summary ---
Author Organization [facility] Address [address] [place] [address] Care Team Providers Care Head Of Global Strategic Partnerships Name Role Phone Luis Hatfield MD Primary Care Provider [phone] Encounter Details Date Type Department Care Team (Late Contact Info) Description 12/26/2024 Results Follow-Up [facility] RHEUM[facility]OLOGY [address] [address] Vicente Wells DO [address] [address] Social History Tobacco Use Types Packs/Day Years [...] Office Visit [facility] RHE[facility] [address] [address] Vicente Wells DO [address] [address] documented as of this encounter Visit Diagnoses Not on filedocumented in this encounter Care Teams Head Of Global Strategic Partnerships Relationship Specialty Start Date End Date Luis [place]field MD [address] [place] [address] [place] [address] PCP - General Family Medicine 06/13/24 documented as of this encounter
[2025-01-17 09:30] LABS: Microscopic, Urine URINE MICROSCOPIC (MICROSCOPIC)
[2025-01-17 09:52] LABS: Hematocrit 32.9 % (37.0-47.0); Hemoglobin 11.5 g/dL (12.2-16.2); Immature Granulocytes % 1.5 %; Mean Corpuscular HGB Conc 35.0 g/dL (31.8-35.4); Mean Corpuscular Hemoglobin 30.6 pg (27.0-31.2); Mean Corpuscular Volume 87.5 fl (81-99); Nucleated Red Blood Cells % 0 %; Platelet Count 286 K/mm3 (142-424); Red Blood Count 3.76 M/mm3 (4.20-5.40); Red Cell Distribution Width-SD 55.1 fL; White Blood Count 4.7 K/mm3 (4.8-10.8)
[2025-01-17 10:09] LABS: Alanine Aminotransferase 14 U/L (12-78); Albumin Level 3.7 g/dl (3.5-5.0); Albumin/Globulin Ratio 1.9 (1.1-1.8); Alkaline Phosphatase 74 U/L (38-126); Anion Gap 8.5 mEq/L (5-15); Aspartate Amino Transferase 37 U/L (14-36); Bilirubin,Total 0.9 mg/dl (0.2-1.3); Blood Urea Nitrogen 7 mg/dl (7-17); Calcium 10.0 mg/dl (8.4-10.2); Carbon Dioxide 28 mmol/L (22.0-30.0); Chloride 102 mmol/L (98-107); Creatinine,Serum 0.70 mg/dl (0.52-1.04); Estimated Glomerular Filt Rate 83 ml/min (>60); GFR (African American) 100 ML/MIN (>60); Globulin 1.9 g/dL (1.3-3.2); Glucose 113 mg/dl (74-100); Potassium 3.5 mmoL/L (3.5-5.1); Sodium 135 mmol/L (136-145); Total Protein,Serum 5.6 g/dl (6.3-8.2)
[2025-01-17 10:15] LABS: C-Reactive Protein 15.1 mg/L (0-4)
[2025-01-17 11:11] LABS: Bilirubin,Urine Negative (Negative); Glucose,Urine (UA) Negative (Negative); Ketones,Urine Negative (Negative); Leukocyte Esterase,Urine 3+ (Negative); PH,Urine 7.5 (5.0-8.5); Protein,Urine 2+ (Negative); Specific Gravity, Urine 1.020 (1.005-1.030); Urobilinogen,Urine 0.2 EU/dl (0.2)
[2025-01-17 11:19] LABS: Color,Urine Dark Yellow (Yellow)
[2025-01-17 11:34] LABS: Bacteria,Urine 1+ /lpf; RBC,Urine 20-50 #/hpf (0-3); Squamous Epithelial Cell,Urine Occasional #/hpf (0-5); WBC,Urine 50-100 #/hpf (0-3)
== END 2025-01-17 23:59 | disposition home or self-care (01) ==
LOC: LAB 09:23
PROVIDERS: PCP Family Medicine; Visit Provider Nurse Practitioner Family
DX: M05.9 Rheumatoid arthritis with rheumatoid factor, unspecified (principal); M32.9 Systemic lupus erythematosus, unspecified; Z79.899 Other long term (current) drug therapy
CPT/HCPCS: 36415; 80053; 81001; 85025; 85651; 86140; 86160; 87086; 87088; 87186

== ENCOUNTER 2025-01-23 10:57 | Outpatient (CLI) | payer MEDICARE, SELFPAY ==
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
--- OUTSIDE RECORDS SUMMARY | 2024-12-08 20:00 | XMS_ITS | Clinical Summary ---
Author Organization Unknown Care Team Providers Care Woven Label Designer Name Role Phone YANE OSORIO, JONH Unavailable Unavailable LUAN OT, ANNALISA Unavailable Unavailable JOHANA PT, LORENZO Unavailable Unavailable OLVIN OCULAR CARE TECHNOLOGIST, CHIQUITA Unavailable Unavailable Payers Payer Name Policy Type Policy Number Effective Date Expira tion Date [employer].ANN MARIE.PPO.C.AUTH [id number] Problems Condition Name Condition Details Condition Category [...] 200 mg tablet 10-01 00:00: 00 Yes [id number] SLE 1 tablet TWICE DAILY 1 tablet TWICE DAILY (route: oral) Med Classific ation: Anti-Infe ctive Agents bupropion HCl 75 mg tablet 09-27 00:00: 00 Yes [id number] SMOKING CESSATION 1 tablet TWICE DAILY 1 tablet TWICE DAILY (route: oral) Med Classific ation: Central Nervous System Agents ondansetron HCl 4 mg tablet 09-27 00:00: 00 Yes [id number] NAUSEA 1 tablet ONCE EVERY 8 HOURS NEEDED 1 tablet ONCE EVERY 8 HOURS NEEDED (route: oral) Med Classific ation: Gastroint estinal Therapy Agents rosuvastati n 40 mg tablet 09-27 00:00: 00 Yes [id number] CHOLESTEROL 1 tablet DAILY 1 tablet DAILY (route: oral) Med Classific ation: Cardiovas cular Therapy Agents tramadol 50 mg tablet 09-27 00:00: 00 Yes [id number] PAIN 1 tablet EVERY 6 HOURS NEEDED 1 tablet EVERY 6 HOURS NEEDED (route: oral) Med Classific ation: Analgesic , Anti-infl ammatory or Antipyret ic estradiol 0.01% (0.1 mg/gram) vaginal cream 16 00:00: 00 Yes [id number] HORMONE 1 inch VAGINALLY ONCE DAILY FOR 2 WEEKS THEN 3 TIMES 1 inch VAGINALLY ONCE DAILY FOR 2 WEEKS THEN 3 TIMES (route: vaginal) Med Classific ation: Vaginal Products sulfamethox azole 800 mg-trimetho prim 160 mg tablet 14 00:00: 00 Yes [id number] ANTIBIOTIC 1 tablet 2 TIMES DAILY 1 tablet 2 TIMES DAILY (route: oral) Med Classific ation: Anti-Infe ctive Agents sodium chloride 0.9 % injection syringe 09-13 00:00: 00 10-12 00:00 :00 No [id number] Per instruc tions Per instructio ns (route: injection) Med Classific ation: Electroly te Balance-N utritiona l Products hydrocodone 5 mg-acetamin ophen 325 mg tablet 10-31 00:00: 00 Yes [id number] NEEDED FOR PAIN 1-2 tablet EVERY 8 [...] PHYSICIANS DR DENA HERNANDEZ PCP, DR IQBAL FIREARMS INSPECTOR TO OBSERVE AND ASSESS, RETAIL WAREHOUSE ASSOCIATE/ICT SALES ASSISTANT TO OBSERVE FOR RISK FOR FALLS AND INSTRUCT IN FALL PREVENTION, HOME SAFETY, MEDICATION MANAGEMENT, INFECTION PREVENTION, AND NUTRITION MANAGEMENT. RN/RETAIL WAREHOUSE ASSOCIATE/ICT SALES ASSISTANT NURSE MAY PERFORM O2 SATURATION LEVEL ON ADMISSION AND PRN FOR SOB AND AMS FOR RN TO ASSESS/RETAIL WAREHOUSE ASSOCIATE TO OBSERVE PATIENT, WITH NOTIFICATION TO THE PHYSICIAN IF SATURATION IS 90% IN THE ABSENCE OF MORE SPECIFIC PARAMETERS FROM THE PHYSICIAN. AGENCY MAY PERFORM A RESUMPTION OF CARE VISIT FOLLOWING ANY HOSPITAL ADMISSION. RN/RETAIL WAREHOUSE ASSOCIATE/ICT SALES ASSISTANT TO MONITOR CO-MORBID CONDITIONS LISTED ON THE PLAN OF CARE AND ANY NEW CONDITIONS THAT PRESENT THEMSELVES DURING THIS EPISODE TO IDENTIFY CHANGES AND INTERVENE TO MINIMIZE COMPLICATIONS. [code = RN TO OBSERVE, ASSESS, EVALUATE, AND DEVELOP AN INDIVIDUALIZED PLAN OF CARE. AGENCY MAY ACCEPT ORDERS FROM CONSULTING PHYSICIANS DR DENA HERNANDEZ PCP, DR IQBAL FIREARMS INSPECTOR TO OBSERVE AND ASSESS, RETAIL WAREHOUSE ASSOCIATE/ICT SALES ASSISTANT TO OBSERVE FOR RISK FOR FALLS AND INSTRUCT IN FALL PREVENTION, HOME SAFETY, MEDICATION MANAGEMENT, INFECTION PREVENTION, AND NUTRITION MANAGEMENT. RN/RETAIL WAREHOUSE ASSOCIATE/ICT SALES ASSISTANT NURSE MAY PERFORM O2 SATURATION LEVEL ON ADMISSION AND PRN FOR SOB AND AMS FOR RN TO ASSESS/RETAIL WAREHOUSE ASSOCIATE TO OBSERVE PATIENT, WITH NOTIFICATION TO THE PHYSICIAN IF SATURATION IS 90% IN THE ABSENCE OF MORE SPECIFIC PARAMETERS FROM THE PHYSICIAN. AGENCY MAY PERFORM A RESUMPTION OF CARE VISIT FOLLOWING ANY HOSPITAL ADMISSION. RN/RETAIL WAREHOUSE ASSOCIATE/ICT SALES ASSISTANT TO MONITOR CO-MORBID CONDITIONS LISTED ON THE PLAN OF CARE AND ANY NEW CONDITIONS THAT PRESENT THEMSELVES DURING THIS EPISODE TO IDENTIFY CHANGES AND INTERVENE TO MINIMIZE COMPLICATIONS.] Future Scheduled Test MEDICATION MANAGEMENT; RN/RETAIL WAREHOUSE ASSOCIATE/ICT SALES ASSISTANT TO REVIEW MEDICATIONS FOR INTERACTIONS, EFFECTIVENESS OF DRUG THERAPY, AND SIGNS/SYMPTOMS OF ADVERSE REACTIONS. MAY INSTRUCT AND REINFORCE MEDICATION TEACHING RELATED TO THE USE OF MEDICATIONS, DOSAGE, FREQUENCY, PURPOSE, SIDE EFFECTS, AND TO REPORT COMPLICATIONS. [code = MEDICATION MANAGEMENT; RN/RETAIL WAREHOUSE ASSOCIATE/ICT SALES ASSISTANT TO REVIEW MEDICATIONS FOR INTERACTIONS, EFFECTIVENESS OF DRUG THERAPY, AND SIGNS/SYMPTOMS OF ADVERSE REACTIONS. MAY INSTRUCT AND REINFORCE MEDICATION TEACHING RELATED TO THE USE OF MEDICATIONS, DOSAGE, FREQUENCY, PURPOSE, SIDE EFFECTS, AND TO REPORT COMPLICATIONS.] Future Scheduled Test RISK FOR H OSPITALIZATION; RN TO ASSESS/TEACH, ICT SALES ASSISTANT/RETAIL WAREHOUSE ASSOCIATE TO OBSERVE/TEACH PATIENT/CAREGIVER ON RISK FOR HOSPITALIZATION/EMERGENCY ROOM VISITS, TEACH SIGNS AND SYMPTOMS THAT PUT PATIENT AT RISK, WHEN TO NOTIFY NURSE/PHYSICIAN OF COMPLICATIONS/DECLINE, AND WHEN TO CALL 911. [code = RISK FOR HOSPITALIZATION; RN TO ASSESS/TEACH, ICT SALES ASSISTANT/RETAIL WAREHOUSE ASSOCIATE TO OBSERVE/TEACH PATIENT/CAREGIVER ON RISK FOR HOSPITALIZATION/EMERGENCY ROOM VISITS, TEACH SIGNS AND SYMPTOMS THAT PUT PATIENT AT RISK, WHEN TO NOTIFY NURSE/PHYSICIAN OF COMPLICATIONS/DECLINE, AND WHEN TO CALL 911.] Future Scheduled Test CARDIOVASC ULAR SYSTEM; RN TO ASSESS/TEACH, RETAIL WAREHOUSE ASSOCIATE/ICT SALES ASSISTANT TO OBSERVE/TEACH RELATED TO ALTERED CARDIOVASCULAR STATUS TO MINIMIZE COMPLICATIONS AND REDUCE HOSPITALIZATION. [code = CARDIOVASCULAR SYSTEM; RN TO ASSESS/TEACH, RETAIL WAREHOUSE ASSOCIATE/ICT SALES ASSISTANT TO OBSERVE/TEACH RELATED TO ALTERED CARDIOVASCULAR STATUS TO MINIMIZE COMPLICATIONS AND REDUCE HOSPITALIZATION.] Future Scheduled Test HYPERTENSI ON MANAGEMENT; RN TO ASSESS AND TEACH, RETAIL WAREHOUSE ASSOCIATE/ICT SALES ASSISTANT TO OBSERVE AND TEACH WARNING SIGNS AND SYMPTOMS TO AVOID HOSPITALIZATION. [code = HYPERTENSION MANAGEMENT; RN TO ASSESS AND TEACH, RETAIL WAREHOUSE ASSOCIATE/ICT SALES ASSISTANT TO OBSERVE AND TEACH WARNING SIGNS AND SYMPTOMS TO AVOID HOSPITALIZATION.] Future Scheduled Test RESPIRATOR Y SYSTEM MANAGEMENT; RN TO ASSESS AND TEACH, RETAIL WAREHOUSE ASSOCIATE/ICT SALES ASSISTANT TO OBSERVE AND TEACH RELATED TO ALTERED RESPIRATORY STATUS TO MINIMIZE COMPLICATIONS AND REDUCE HOSPITALIZATION. [code = RESPIRATORY SYSTEM MANAGEMENT; RN TO ASSESS AND TEACH, RETAIL WAREHOUSE ASSOCIATE/ICT SALES ASSISTANT TO OBSERVE AND TEACH RELATED TO ALTERED RESPIRATORY STATUS TO MINIMIZE COMPLICATIONS AND REDUCE HOSPITALIZATION.] Future Scheduled Test PAIN MANAG EMENT; RN TO ASSESS AND TEACH, ICT SALES ASSISTANT/RETAIL WAREHOUSE ASSOCIATE TO OBSERVE AND TEACH AND PROVIDE EDUCATION ON PAIN MANAGEMENT TECHNIQUES. [code = PAIN MANAGEMENT; RN TO ASSESS AND TEACH, ICT SALES ASSISTANT/RETAIL WAREHOUSE ASSOCIATE TO OBSERVE AND TEACH AND PROVIDE EDUCATION ON PAIN MANAGEMENT TECHNIQUES.] Future Scheduled Test CANCER MAN AGEMENT; RN TO ASSESS AND TEACH, ICT SALES ASSISTANT/RETAIL WAREHOUSE ASSOCIATE TO OBSERVE AND TEACH AND PROVIDE EDUCATION ON CANCER. [code = CANCER MANAGEMENT; RN TO ASSESS AND TEACH, ICT SALES ASSISTANT/RETAIL WAREHOUSE ASSOCIATE TO OBSERVE AND TEACH AND PROVIDE EDUCATION ON CANCER.] Future Scheduled Test RN TO ASSE SS AND TEACH, RETAIL WAREHOUSE ASSOCIATE/ICT SALES ASSISTANT TO OBSERVE AND TEACH FOR SIGNS AND SYMPTOMS OF SEPSIS AND/OR POST-SEPSIS SYNDROME AND INTERVENE TO MINIMIZE COMPLICATIONS. RN/RETAIL WAREHOUSE ASSOCIATE/ICT SALES ASSISTANT TO PROVIDE SKILLED TEACHING TO PATIENT/CAREGIVER ON SEPSIS AND SELF-MANAGEMENT TECHNIQUES. RN/RETAIL WAREHOUSE ASSOCIATE/ICT SALES ASSISTANT TO MONITOR PATIENT/CAREGIVER ADHERENCE TO MONITOR AND RECORD VITAL SIGNS INCLUDING TEMPERATURE, HEART RATE, RESPIRATIONS, AND SYMPTOMS. [code = RN TO ASSESS AND TEACH, RETAIL WAREHOUSE ASSOCIATE/ICT SALES ASSISTANT TO OBSERVE AND TEACH FOR SIGNS AND SYMPTOMS OF SEPSIS AND/OR POST-SEPSIS SYNDROME AND INTERVENE TO MINIMIZE COMPLICATIONS. RN/RETAIL WAREHOUSE ASSOCIATE/ICT SALES ASSISTANT TO PROVIDE SKILLED TEACHING TO PATIENT/CAREGIVER ON SEPSIS AND SELF-MANAGEMENT TECHNIQUES. RN/RETAIL WAREHOUSE ASSOCIATE/ICT SALES ASSISTANT TO MONITOR PATIENT/CAREGIVER ADHERENCE TO MONITOR AND RECORD VITAL SIGNS INCLUDING TEMPERATURE, HEART RATE, RESPIRATIONS, AND SYMPTOMS. ] Future Scheduled Test FALL REDUC TION MANAGEMENT; RN TO ASSESS AND OBSERVE, RETAIL WAREHOUSE ASSOCIATE/ICT SALES ASSISTANT TO OBSERVE FALL RISK FACTORS AND EDUCATE PATIENT/CAREGIVER ON STRATEGIES TO MINIMIZE THE RISK OF FALLING. [code = FALL REDUCTION MANAGEMENT; RN TO ASSESS AND OBSERVE, RETAIL WAREHOUSE ASSOCIATE/ICT SALES ASSISTANT TO OBSERVE FALL RISK FACTORS AND EDUCATE [...] TO EVALUATE, OBSERVE / ASSESS, AND MONITOR, OIL DISTRIBUTOR TO OBSERVE AND MONITOR, PROVIDE SKILLED THERAPEUTIC INTERVENTION, ACTIVITY, EDUCATION, AND TRAINING TO ADDRESS; DEFICITS IN STRENGTH/BALANCE/ENDURANCE, AND TO INCREASE SAFETY AND INDEPENDENCE WITH ADLS, FUNCTIONAL TRANSFERS/MOBILITY, HOME MANAGEMENT TASKS. MD OFFICE OF DR JONH CHE NOTIFIED OF COMPLETION OF OCCUPATIONAL THERAPY EVALUATION AND PLAN OF CARE. BATHING/SHOWERING (OT/OIL DISTRIBUTOR) DRESSING (OT/DUSTY) ACTIVITIES OF DAILY LIVING (OT/DUSTY) MEAL PREPARATION AND CLEANUP (OT/DUSTY) BATH/SHOWER TRANSFER (OT/OIL DISTRIBUTOR) HOME ACTIVITY / EXERCISE PROGRAM (OT/OIL DISTRIBUTOR) POSTURAL CONTROL/BALANCE (OT/OIL DISTRIBUTOR) OT/DUSTY MAY EDUCATE ON PAIN MANAGEMENT CLINICALLY INDICATED, INCLUDING NON-PHARMACOLOGICAL PAIN REDUCTION TECHNIQUES AND USE OF CRYOTHERAPY OR HEAT UP TO 20 MIN AT A TIME FOR PAIN MANAGEMENT. OT/DUSTY TO INSTRUCT PATIENT/CAREGIVER ON RISK FOR HOSPITALIZATION/EMERGENCY ROOM VISITS, TEACH SIGNS AND SYMPTOMS THAT PUT PATIENT AT RISK, WHEN TO NOTIFY NURSE/PHYSICIAN OF COMPLICATIONS/DECLINE, AND WHEN TO CALL 911. OT / OIL DISTRIBUTOR TO IDENTIFY FALL RISK FACTORS; EDUCATE THE PATIENT/CAREGIVER ON WAYS TO REDUCE FALL RISK FACTORS AND ESTABLISH HOME EXERCISE PROGRAM TO MINIMIZE FALL RISK. MAY TEACH THE PATIENT FLOOR RECOVERY WHEN CLINICALLY APPROPRIATE. [code = AGENCY MAY PERFORM A RESUMPTION OF CARE VISIT FOLLOWING ANY HOSPITAL ADMISSION. OT TO EVALUATE, OBSERVE / ASSESS, AND MONITOR, OIL DISTRIBUTOR TO OBSERVE AND MONITOR, PROVIDE SKILLED THERAPEUTIC INTERVENTION, ACTIVITY, EDUCATION, AND TRAINING TO ADDRESS; DEFICITS IN STRENGTH/BALANCE/ENDURANCE, AND TO INCREASE SAFETY AND INDEPENDENCE WITH ADLS, FUNCTIONAL TRANSFERS/MOBILITY, HOME MANAGEMENT TASKS. MD OFFICE OF DR JONH CHE NOTIFIED OF COMPLETION OF OCCUPATIONAL THERAPY EVALUATION AND PLAN OF CARE. BATHING/SHOWERING (OT/DUSTY) DRESSING (OT/OIL DISTRIBUTOR) ACTIVITIES OF DAILY LIVING (OT/DUSTY) MEAL PREPARATION AND CLEANUP (OT/OIL DISTRIBUTOR) BATH/SHOWER TRANSFER (OT/OIL DISTRIBUTOR) HOME ACTIVITY / EXERCISE PROGRAM (OT/OIL DISTRIBUTOR) POSTURAL CONTROL/BALANCE (OT/DUSTY) OT/DUSTY MAY EDUCATE ON [...] End Date/Time Encounter Type Admission Type Attending [facility] Care Department Encounter ID Discharge Date Discharge Status Discharge Condition Discharge Reason Percent Goals Met 2024-10-12 00:00:00 2024-12-09 00:00:00 Outpatient NEW ADMISSION ANNALISA ROLAND [facility] [id number] 2024-12-09 00:00:00 DISCHARGE TO HOME OR SELF CARE INDEPENDEN T IN THE [facility] - GOALS MET 96.30
--- OUTSIDE RECORDS SUMMARY | 2024-12-20 07:18 | XMS_ITS | Encounter Summary ---
Author Organization [facility] Address [address] [place] [address] Care Team Providers Care Park Interpretive Specialist Name Role Phone Luis Hatfield MD Primary Care Provider [phone] Reason for Referral * Imaging (Routine) - Closed Specialty Diagnoses / Procedures Referred By Stephen parks Referred To Contact Radiology Diagnoses Malignant neoplasm of urinary bladder, unspecified site (CMS/HCC) Procedures IR Nephrostomy Tube Exchange Kristen Bryant APRN [address] [place] [address] Phone: tel: fax: Referral ID Status Reason Start Date Expiration Date Visits Re quested Visits Authorized [id number] Closed 10/09/2024 04/10/2026 1 1 Reason for Visit * Imaging (Routine) - Closed Specialty Diagnoses / Procedures Referred By Stephen parks Referred To Contact Radiology Diagnoses Malignant neoplasm of urinary bladder, unspecified site (CMS/HCC) Procedures IR Nephrostomy Tube Exchange Kristen Bryant APRN [address] [place] [address] Phone: tel: fax: Referral ID Status Reason Start Date Expiration Date Visits Re quested Visits Authorized [id number] Closed 10/09/2024 04/10/2026 1 1 Encounter Details Date Type Department Care Team (Latest Contact Info) Description 12/20/2024 7:18 AM EDT - 12/20/2024 11:59 PM EDT Hospital Encounter [facility] Interventional Radiology [address] [place] [address] AidaMihirLiliana Malignant neoplasm of urinary bladder, unspecified [...] were you homeless or living in a senior care (including now)? No 09/23/2024 CAGE ASSESSMENT Answer [...] drink first t kimberlyn in the morning (EYE-DRYING MACHINE BACK TENDER) to steady your nerves or to get rid of a hangover? 0 09/11/2024 CAGE Questionnaire Score 0 025 Utilities Answer Date Recorded In the past 12 months has th [email or web address], gas, oil, or water company threatened to [...] call: Vascular & Interventional Radiology Clinic at [phone] Monday - Monday 8:00 AM to 4:30 PM After hours, weekends, and holidays please call [phone] and ask for the Interventional Radiology provider/Resident on-call For Emergencies please go to the nearest Emergency Room or dial 911. Intervention Radiology Appointments: If you need to reschedule a procedure, please call our Schedulers at [phone], option 4. If you need to schedule or reschedule a clinic appointment, please call [phone]. [facility] Vascular and Interventional Radiology Clinic [address] [place] [address] documented in this encounter Medications at Time [...] from the original note were not included. [id number] Percutaneous Nephrostomy You had a procedure called [...] and warm water or an alcohol-based hand tank car cleaner ?? Disposable medical gloves - they [...] 4. Wipe the skin gently in a [place]. Move away from the drain tube in [...] hands with soap & water or hand tank car cleaner and put on a new pair [...] hands with soap and water or hand tank car cleaner. They can also put on a [...] syringe to the needleless port with a [id number]-cep-btuhb motion. ? Flush the tube: Push on [...] your tube from getting blocked. * [facility] - Liliana Parra - 12/20/2024 9:46 AM EDT Images from the original note were not included. [id number] Discharge Instructions for Percutaneous Nephrostomy You had [...] symptoms Last Reviewed Date: 2022 00:00:00 ?? [id number] The [employer]. All rights reserved. This information is not [...] been discussed with the patient and/or their patient account representative. All questions answered and they agree [...] had enough tubes placed 09/12/2024 with 8 [place] bilaterally. Shedoes not report any symptoms or [...] 93%. Results Review {Vanishing Link Review Results :[id number] I have reviewed the latest lab and [...] [facility] [address] [place] [address] Ochoa Matias MD [address] [place] [address] documented as of this encounter Procedures Procedure [...] bilateral percutaneous nephrostomy tube exchange using 10 [place] locking pigtail drainage catheters. PLAN: Nephrostomy tube [...] for routine bilateral nephrostomy tube exchange. TECHNIQUE: Microarray Analyst: Sundeep Bowman MD Supervising attending: Liang Rodriguez [...] antisepsis, followed by sterile barrier draping A server programmer film was performed to document the location [...] were no immediate complication. COMPARISON: None. FINDINGS: Filter Bed Placer images and nephrostograms demonstrate bilateral percutaneous nephrostomy tubes in expected location. COMPLICATION: No. Procedure Note Liang Rodriguez MD - 12/20/2024 CLINICAL INDICATION: 69-year-old female who presents for routine bilateral nephrostomy tubeexchange. TECHNIQUE: Microarray Analyst: Sundeep Bowman MD Supervising attending: Liang Rodriguez [...] cutaneousantisepsis, followed by sterile barrier draping A server programmer film was performed to document the location [...] there were no immediatecomplication. COMPARISON: None. FINDINGS: Filter Bed Placer images and nephrostograms demonstrate bilateral percutaneousnephrostomy tubes [...] on 12/20/2024 10:50 AM Kristen Donovan Manny SENIOR STRATEGY ANALYST IMG IR PROCEDURES Final Result documented in [...] documented as of this encounter Care Teams Park Interpretive Specialist Relationship Specialty Start Date End Date Luis Hatfield MD [address] [place] [address] PCP - General 07/24/24 documented as of this encounter
--- OUTSIDE RECORDS SUMMARY | 2024-12-26 10:30 | XMS_ITS | Encounter Summary ---
Author Organization [facility] Address [address] [id number] Care Team Providers Care Cinder Block Maker Name Role Phone Luis Hatfield MD Primary Care Provider [phone] Reason for Visit * Reason Comments Seropositive rheumatoid arthritis 6 veronica h follow up Encounter Details Date Type Department Care Team (Latest Contact Info) Description 12/26/2024 10:30 AM EDT Office Visit [facility] RHEUMATOLOGY [address] [phone] Nguyen Romero APRN [address] [address] Seropositive rheumatoid arthritis (Primary Dx); Systemic lupus erythematosus, unspecified SLE type, unspecified organ involvement status; High risk medication use; Primary osteoarthritis involving multiple joints; NSAID long-term use Social History Tobacco Use Types Packs/Day Years Used Date Smoking Tobacco: Every Day Cigarettes Passive Smoke Exposure: Never Smokeless Tobacco: Never Tobacco Cessation:Ready to Q uit: No; Counseling Given: No Alcohol Use Standard Drinks/Week Comments Not Currently 0 (1 standard drink = 0.6 oz pur e alcohol) Comments Unknown Sex and Gender Information Value Date Recorded Sex Assigned at Not on file Legal Sex Female 11:56 AM EDT Gender Identity Not on file Sexual Orientation Not on file documented as of this encounter Last Filed Vital Signs Vital Sign Reading Time Taken Comments Blood Pressure 122/60 12/26/2024 10:32 AM EDT Pulse 95 12/26/2024 10:32 AM EDT Temperature - - Respiratory Rate - - Oxygen Saturation - - Inhaled Oxygen Concentration - - Weight 63.7 kg (140 lb 8 oz) 12/26/2024 10:32 AM EDT Height 157.5 cm (5' 2 ) 12/26/2024 10:32 AM EDT Body Mass Index 25.7 12/26/2024 10:32 AM EDT documented in this encounter Progress Notes * Nguyen Romero APRN - 12/26/2024 10:30 AM EDTAssociated Problem(s): Seropositive rheumatoid arthritis * 11/04/22 Left knee x-rays showed mild degenerative changes * 11/04/22 right knee x-rays did not show any significant arthritic findings *11/04/22: CBC was fine, DS DNA 13.0 (<4.0), Centromere and Chromatin normal, LIQUOR GRINDING MILL OPERATOR and SCL 70 normal, Christine normal, SSA and SSB normal, total bilirubin 1.4, Glucose 117, CMP was ok otherwise, CCP negative, CRP Normal, RF 110 (<14.0 normal), ESR normal, TSH normal * Medications/treatments/interventions tried include: Tylenol, meloxicam, Advil, CBD oil, Tumeric, Aspirin, Plaquenil, she has seen podiatry (Miky Steele DPM), she has seen rail car painter/sandblaster (Dr. Jed Trevino), Ketamine, gabapentin, She has had back injections 1. Continue/refill hydroxychloroquine. Okay to continue while receiving chemotherapy. 2. Check labs 3. She is avoiding NSAIDs due to CKD. 4. We will have oncology manage bone density scan as patient is currently in chemotherapy. 5. Follow up in 6 months * Nguyen Romero APRN - 12/26/2024 10:30 AM EDTAssociated Problem(s): SLE (systemic lupus erythematosus) 1. Continue/refill hydroxychloroquine 2. Check labs * Nguyen Romero APRN - 12/26/2024 10:30 AM EDTAssociated Problem(s): High risk medication use * Plaquenil 200 mg PO BID for SLE/RA overlap * 1st prescribed 12/05/22 Patient's taking hydroxychloroquine should have an eye exam at least once/year to monitor for signsof medication toxicity * Nguyen Romero APRN - 12/26/2024 10:30 AM EDTAssociated Problem(s): Osteoarthritis 1. Tylenol PRN is ok as directed 2. Continue/refill meloxicam 3. She has tried using CBD products 4. She has taken Tumeric 5. She has seen podiatry for her feet 6. She has taken gabapentin for neuropathic pain 7. She has seen pain management specialists 8. She has had back injections. * Nguyen Romero APRN - 12/26/2024 10:30 AM EDTAssociated Problem(s): NSAID long-term use No longer taking NSAIDs due to CKD * Nguyen Romero APRN - 12/26/2024 10:30 AM EDT Images from the original note were not included. Office Follow Up Date: 12/26/2024 Patient Name: Yaima Pritchard Date of : 1955 Referring Physician: No ref. provider found Chief Complaint Patient presents with Seropositive rheumatoid arthritis 6 month follow up History of Present Illness: Yaima Pritchard is a 69 y.o. female who is here today for follow up. She established care with us as of 12/05/22. We have prescribed her hydroxychloroquine 200 mg PO BID. Today she reports feeling the same. She rates her pain 0.5/10, global 6/10 and has 40 minutes of morning stiffness. Since we last saw her she was started on hydrocodone/acetaminophen, Compazine and dexamethasone. She has been diagnosed with malignant bladder cancer as of 07/2024. She is receiving chemotherapy. She had radiation for hip lesion. She brought in medical records from [facility] for us to review. Subjective Review of Systems Constitutional: Positive for unexpected weight loss. Gastrointestinal: Positive for constipation, diarrhea, nausea and indigestion. Endocrine: Positive for cold intolerance. All other systems reviewed and are negative. Current Outpatient Medications: ASPIRIN 81 PO, Take 1 tablet by mouth Daily., Disp: , Rfl: buPROPion (WELLBUTRIN) 75 MG tablet, Take 1 tablet by mouth Every 12 (Twelve) Hours., Disp: , Rfl: Cholecalciferol (VITAMIN D-3 PO), Take 1 capsule by mouth Daily., Disp: , Rfl: HYDROcodone-acetaminophen (NORCO) 5-325 MG per tablet, Take 1-2 tablets by mouth Every 8 (Eight) Hours As Needed. for pain, Disp: , Rfl: hydroxychloroquine (PLAQUENIL) 200 MG tablet, Take 1 tablet by mouth 2 (Two) Times a Day., Disp: 60tablet, Rfl: 5 irbesartan (AVAPRO) 300 MG tablet, 1 tablet., Disp: , Rfl: multivitamin with minerals (Hair Skin and Nails Formula) tablet tablet, Take 1 tablet by mouth Daily., Disp: , Rfl: prochlorperazine (COMPAZINE) 10 MG tablet, Take 1 tablet by mouth Every 6 (Six) Hours As Needed forNausea or Vomiting., Disp: , Rfl: rosuvastatin (CRESTOR) 40 MG tablet, Take 1 tablet by mouth Every Night., Disp: , Rfl: Turmeric (QC Tumeric Complex) 500 MG capsule, Take 1 capsule by mouth Daily. TAKE DIRECTED, Disp: , Rfl: vitamin B-12 (CYANOCOBALAMIN) 500 MCG tablet, Take 1 tablet by mouth Daily., Disp: , Rfl: Allergies Allergen Reactions Codeine Nausea And Vomiting and Provider Review Needed I have reviewed and updated the patient's chief complaint, history of present illness, review of systems, past medical history, surgical history, family history, social history, medications and allergy list as appropriate. Objective Vitals: 12/26/24 1032 BP: 122/60 Pulse: 95 Weight: 63.7 kg (140 lb 8 oz) Height: 157.5 cm (62 ) PainSc: 0-No pain Body mass index is 25.7 kg/m??. Physical Exam General: Well appearing 69 year old female. Not in distress. She is ambulating with a cane. SKIN: No rashes. No alopecia. No subcutaneous nodules. No digital pits or ulcers. No sclerodactyly. HEENT: NCAT. Conjunctiva clear, no photophobia. No oral or nasal ulcers. Hearing intact. Pulmonary: Clear to auscultation bilaterally. No wheezing, rales, or rhonchi. CV: Regular rate and rhythm. No murmurs, rubs, or gallops. Psych: Normal mood and affect. Alert and oriented x 3. Extremities: No cyanosis or edema. Musculoskeletal: No joint swelling or tenderness to palpation. No warmth or erythema. Normal range of motion of the wrists, ankles, elbows, and knees. [place] bilaterally. Lymph: No palpable cervical adenopathy : Bilateral nephrostomy tubes Assessment / Plan Assessment & Plan Seropositive rheumatoid arthritis * 11/04/22 Left knee x-rays showed mild degenerative changes * 11/04/22 right knee x-rays did not show any significant arthritic findings *11/04/22: CBC was fine, DS DNA 13.0 (<4.0), Centromere and Chromatin normal, LIQUOR GRINDING MILL OPERATOR and SCL 70 normal, Christine normal, SSA and SSB normal, total bilirubin 1.4, Glucose 117, CMP was ok otherwise, CCP negative, CRP Normal, RF 110 (<14.0 normal), ESR normal, TSH normal * Medications/treatments/interventions tried include: Tylenol, meloxicam, Advil, CBD oil, Tumeric, Aspirin, Plaquenil, she has seen podiatry (Miky Steele DPM), she has seen rail car painter/sandblaster (Dr. Jed Trevino), Ketamine, gabapentin, She has had back injections 1. Continue/refill hydroxychloroquine. Okay to continue while receiving chemotherapy. 2. Check labs 3. She is avoiding NSAIDs due to CKD. 4. We will have oncology manage bone density scan as patient is currently in chemotherapy. 5. Follow up in 6 months Systemic lupus erythematosus, unspecified SLE type, unspecified organ involvement status 1. Continue/refill hydroxychloroquine 2. Check labs High risk medication use * Plaquenil 200 mg PO BID for SLE/RA overlap * 1st prescribed 12/05/22 Patient's taking hydroxychloroquine should have an eye exam at least once/year to monitor for signsof medication toxicity Primary osteoarthritis involving multiple joints 1. Tylenol PRN is ok as directed 2. Continue/refill meloxicam 3. She has tried using CBD products 4. She has taken Tumeric 5. She has seen podiatry for her feet 6. She has taken gabapentin for neuropathic pain 7. She has seen pain management specialists 8. She has had back injections. NSAID long-term use No longer taking NSAIDs due to CKD Follow Up: Return in about 6 months (around 06/28/2025) for Dr. Wells. Nguyen Romero APRN [facility] of [place] documented in this encounter Plan of Treatment Upcoming Encounters Date Type Department Care Team (Late st Contact Info) Description 07/09/2025 10:45 AM EST Office Visit [facility] RHEUMATOLOGY [address] [place] [phone] Vicente Wells DO [address] [id number] Scheduled Orders Name Type Priority Associated Diagnoses Orde r Schedule Comprehensive Metabolic Panel Lab Routine Seropositive rheumatoid arthritis Systemic lupus erythematosus, unspecified SLE type, unspecified organ involvement status High risk medication use Expected: 12/31/2024 (Approximate), Expires: 03/28/2026 C-reactive Protein Lab Routine Seropositive rheumatoid arthritis Systemic lupus erythematosus, unspecified SLE type, unspecified organ involvement status High risk medication use Expected: 12/31/2024 (Approximate), Expires: 03/28/2026 Sedimentation Rate Lab Routine Seropositive rheumatoid arthritis Systemic lupus erythematosus, unspecified SLE type, unspecified organ involvement status High risk medication use Expected: 12/31/2024 (Approximate), Expires: 03/28/2026 CBC & Differential Lab Panel Routine Seropositive rheumatoid arthritis Systemic lupus erythematosus, unspecified SLE type, unspecified organ involvement status High risk medication use Expected: 12/31/2024 (Approximate), Expires: 03/28/2026 C4+C3 Lab Routine Systemic lupus erythematosus, unspecified SLE type, unspecified organ involvement status Expected: 12/31/2024 (Approximate), Expires: 03/28/2026 dsDNA Antibody by IFA, Cripanda luciliae, with Reflex to Titer Lab Routine Systemic lupus erythematosus, unspecified SLE type, unspecified organ involvement status Expected: 12/31/2024 (Approximate), Expires: 03/28/2026 UA / M With / Rflx Culture([facility] ONLY) - Urine, Clean Catch Lab Routine Systemic lupus erythematosus, unspecified SLE type, unspecified organ involvement status Expected: 12/31/2024 (Approximate), Expires: 03/28/2026 Hydroxychloroquine, Whole Blood Lab Routine Systemic lupus erythematosus, unspecified SLE type, unspecified organ involvement status Expected: 12/31/2024 (Approximate), Expires: 03/28/2026 documented as of this encounter Visit Diagnoses Diagnosis Seropositive rheumatoid arthritis- Primary Systemic lupus erythematosus, unspecified SLE type, unspecified organ involvement status High risk medication use Primary osteoarthritis involving multiple joints NSAID long-term use Encounter for long-term (current) use of non-steroidal anti-inflammatories documented in this encounter Care Teams Cinder Block Maker Relationship Specialty Start Date End Date uLis Hatfield MD [address] [facility] [address] [facility] [address] [place] [id number] PCP - General Family Medicine 06/13/24 documented as of this encounter
--- OUTSIDE RECORDS SUMMARY | 2025-01-23 11:01 | XMS_ITS | Encounter Summary ---
Author Organization Healthcare Address [address] [id number] Care Team Providers Care Assorter Name Role Phone Luis Hatfield MD Primary Care Provider [phone] Encounter Details Date Type Department Care Team (Late st Contact Info) Description 08/19/2024 Lab Requisition [facility] [address] [place] [address] Ochoa Matias MD [address] [place] [address] Malignant neoplasm of bladder, unspecified (CMS/HCC) Social [...] living in a mcc (including now)? No 07/24/2024 CAGE ASSESSMENT Answer [...] drink first t kimberlyn in the morning (EYE-AFTERNOON NANNY) to steady your nerves or to get [...] 02/05/2025 4:30 PM EDT Office Visit [facility] Multidisciplinary Oncology Clinic [address] [place] [address] Ochoa Matias MD [address] [place] [address] documented as of this encounter Procedures Procedure [...] name Selwyn Geller 09/05/2024 7:35 AM EDT [facility] Comment:[id number], A3 Test Result see scan 09/05/2024 7:35 AM EDT [facility] See Scanned Result 09/05/2024 7:35 AM EDT [facility] Tissue 07/23/2024 1:18 PM EST 08/19/2024 1:48 PM EDT us Ochoa Matias MD LAB REF LAB BLOOD AND FLUID ORD Final Result [facility] [address] [place] [address] * - AP Miscellaneous Test (07/23/2024 1:18 PM EST) Test name Selwyn Espinosa Viviane 09/09/2024 8:04 AM EDT [facility] Comment:[id number], A3 Test Result see scan 09/09/2024 8:04 AM EDT [facility] See Scanned Result 09/09/2024 8:04 AM EDT [facility] Tissue 07/23/2024 1:18 PM EST 08/19/2024 1:48 PM EDT us Ochoa Matias MD LAB REF LAB BLOOD AND FLUID ORD Final Result [facility] [address] [place] [address] documented in this encounter Visit Diagnoses Diagnosis Malignant neoplasm of bladder, unspecified (CMS/HCC) documented in this encounter Additional Health Concerns Assessment Noted Time A Body Mass Index follow-up plan has been documented for the patient 07/25/2024 1:21 PM EST documented as of this encounter Care Teams Assorter Relationship Specialty Start Date End Date Luis Hatfield MD [address] [place] [address] PCP - General 07/24/24 documented as of this encounter
--- OUTSIDE RECORDS SUMMARY | 2025-01-23 11:01 | XMS_ITS | Encounter Summary ---
Author Organization [facility] Address [address] [id number] Care Team Providers Care Bacteriology Research Assistant Name Role Phone Luis Hatfield MD Primary Care Provider [phone] Encounter Details Date Type Department Care Team ([facility] Contact Info) Description 07/12/2024 Telephone [facility] RHE[facility]OLOG[facility] [address] [address] Santiago Anders MD [address] [id number] Social History Tobacco Use Types Packs/Day Years [...] 10:45 AM EST Office Visit [facility] [address] [address] Vicente Wells DO [address] [address] documented as of this encounter Visit Diagnoses Not on filedocumented in this encounter Care Teams Bacteriology Research Assistant Relationship Specialty Start Date End Date Luis Hatfield MD [address] [facility] [address] [place] [id number] PCP - General Family Medicine 06/13/24 documented as of this encounter
--- OUTSIDE RECORDS SUMMARY | 2025-01-23 11:01 | XMS_ITS | Clinical Summary ---
Author Organization [facility] Address [address] [place] [address] Care Team Providers Care Naval Aircrewman Helicopter Name Role Phone Luis Hatfield MD Primary Care Provider [phone] Allergies Active Allergy Reactions Criticality Noted Date [...] DNA 13.0 (<4.0), Centromere and Chromatin normal, MILL RECORDER and SCL 70 normal, Christine normal, SSA and SSB normal, total bilirubin 1.4, Glucose 117, CMP was ok otherwise, CCP negative, CRP Normal, RF 110 (<14.0 normal), ESR normal, TSH normal * Medications/treatments/interventions tried include: Tylenol, meloxicam, Advil, CBD oil, Tumeric, Aspirin, Plaquenil, she has seen podiatry (Miky Steele DPM), she has seen banner painter (Dr. Jed Trevino), Ketamine, gabapentin, She [...] DNA 13.0 (<4.0), Centromere and Chromatin normal, MILL RECORDER and SCL 70 normal, Christine normal, SSA and SSB normal, total bilirubin 1.4, Glucose 117, CMP was ok otherwise, CCP negative, CRP Normal, RF 110 (<14.0 normal), ESR normal, TSH normal * Medications/treatments/interventions tried include: Tylenol, meloxicam, Advil, CBD oil, Tumeric, Aspirin, Plaquenil, she has seen podiatry (Miky Steele DPM), she has seen banner painter (Dr. Jed Trevino), Ketamine, gabapentin, She [...] DNA 13.0 (<4.0), Centromere and Chromatin normal, MILL RECORDER and SCL 70 normal, Christine normal, SSA and SSB normal, total bilirubin 1.4, Glucose 117, CMP was ok otherwise, CCP negative, CRP Normal, RF 110 (<14.0 normal), ESR normal, TSH normal * Medications/treatments/interventions tried include: Tylenol, meloxicam, Advil, CBD oil, Tumeric, Aspirin, Plaquenil, she has seen podiatry (Miky Steele DPM), she has seen banner painter (Dr. Jed Trevino), Ketamine, gabapentin, She [...] Description 12/26/2024 10:30 AM EDT Office Visit [facility] RHEUM[facility]OLOG[facility] [address] [address] Nguyen Romero APRN Seropositive rheumatoid arthritis (Primary Dx); Systemic lupus erythematosus, unspecified SLE type, unspecified organ involvement status; High risk medication use; Primary osteoarthritis involving multiple joints; NSAID long-term use 12/26/2024 Results Follow-Up [facility] [address] [address] Vicente Wells, 12/26/2024 Results Follow-Up [facility] [address] [address] Vicente Wells, 12/26/2024 Travel from [...] Description 07/09/2025 10:45 AM EST Office Visit [facility] [address] [facility] [address] [place] [address] Vicente Wells DO [address] [facility] [address] [place] [address] Health Maintenance Due Date Last Done Comments [...] Date/Time Associated Diagnosis Comments SCANNED - LABS 01/17/2025 SCANNED - LABS 01/17/2025 SCANNED - LABS 01/17/2025 SCANNED - LABS 01/17/2025 SCANNED - LABS 01/17/2025 SCANNED - LABS 12/12/2024 SCANNED - LABS 11/07/2024 SCANNED - LABS 10/31/2024 SCANNED - IMAGING 10/31/2024 from Last 3 Months Results * LABS SCANNED (01/17/2025) Only the most recent of8 resultswithin the time period is included. Nguyen Romero ULTRASOUND TECH LAB BLOOD ORDERABLES F inal Result * IMAGING SCANNED (10/31/2024) Anatomical Region Laterality Modality Radiographic Minnie ging Vicente Wells DO IMG DIAGNOSTIC IMAGING ORDERABLES Final Result from Last 3 Months Insurance [employer] MEDICARE ADVANTAGE PPO Care Teams Naval Aircrewman Helicopter Relationship Specialty Start Date End Date Luis Hatfield MD [address] [facility] [address] [place] [address] PCP - General Family Medicine 06/13/24
--- OUTSIDE RECORDS SUMMARY | 2025-01-23 11:01 | XMS_ITS | Encounter Summary ---
Author Organization Healthcare Address [address] [place] [address] Care Team Providers Care Singer Back Tender Name Role Phone Luis Hatfield MD Primary Care Provider [phone] Encounter Details Date Type Department Care Team (Late st Contact Info) Description 12/02/2024 Telephone [facility] Interventional Radiology [address] [place] [address] Cecille Escobedo RN CH-VASCULAR & INTERVENTIONAL RADIOLOGY [...] in the past 12 m [facility], were you homeless or living in a prison (including now)? No 09/23/2024 CAGE ASSESSMENT Answer [...] drink first t kimberlyn in the morning (EYE-RADIATION CONTROL TECHNICIAN) to steady your nerves or to [...] Description 02/05/2025 4:30 PM EDT Office Visit [facility] Multidisciplinary Oncology Clinic [address] [place] [address] Ochoa Matias MD [address] [facility] [address] [place] [address] documented as of this encounter Visit Diagnoses [...] documented as of this encounter Care Teams Singer Back Tender Relationship Specialty Start Date End Date Luis Hatfield MD [address] [address] PCP - General 07/24/24 documented as of this encounter
--- OUTSIDE RECORDS SUMMARY | 2025-01-23 11:01 | XMS_ITS | Encounter Summary ---
Author Organization [facility] Address [address] [id number] Care Team Providers Care Network Coordinator Name Role Phone Luis Hatfield MD Primary Care Provider [phone] Encounter Details Date Type Department Care Team (Late Contact Info) Description 07/12/2024 Telephone [facility] RHEUM[facility] [address] [address] Vicente Wells DO [address] [id number] Social History Tobacco Use Types Packs/Day Years [...] Visit [facility] [address] [address] Vicente Wells DO [address] [address] documented as of this encounter Visit Diagnoses Not on filedocumented in this encounter Care Teams Network Coordinator Relationship Specialty Start Date End Date Luis Hatfield MD [address] [facility] [address] [place] [address] PCP - General Family Medicine 06/13/24 documented as of this encounter
--- OUTSIDE RECORDS SUMMARY | 2025-01-23 11:01 | XMS_ITS | Encounter Summary ---
Author Organization Healthcare Address [address] [place] [address] Care Team Providers Care Dipper And Drier Name Role Phone Luis Hatfield MD Primary Care Provider [phone] Reason for Visit * Reason Onset Date Comments [facility] 11/26/2024 Encounter Details Date Type Department Care Team (Late st Contact Info) Description 11/26/2024 Telephone [facility] Multidisciplinary Oncology Clinic [address] [place] [address] Ochoa Matias MD [address] [place] [address] [facility] Social History Tobacco Use Types Packs/Day [...] any time in the past 12 m [facility], were you homeless or living in [...] drink first t kimberlyn in the morning (EYE-INDUSTRY OPERATIONS INVESTIGATOR) to steady your nerves or to get [...] Description 02/05/2025 4:30 PM EDT Office Visit [facility] Multidisciplinary Oncology Clinic [address] [place] [address] Ochoa Matias MD [address] [facility] [address] [place] [address] documented as of this encounter Visit Diagnoses [...] documented as of this encounter Care Teams Dipper And Drier Relationship Specialty Start Date End Date Luis Hatfield MD [address] [address] PCP - General 07/24/24 documented as of this encounter
--- OUTSIDE RECORDS SUMMARY | 2025-01-23 11:02 | XMS_ITS | Encounter Summary ---
Author Organization [facility] Address [address] [place] [address] Care Team Providers Care Closing Manager Name Role Phone Luis Hatfield MD Primary Care Provider [phone] Encounter Details Date Type Department Care Team (Late Contact Info) Description 12/26/2024 Results Follow-Up [facility] RHEUMATOLOGY [address] [address] Vicente Wells DO [address] [address] Social History Tobacco Use Types Packs/Day Years [...] Description 07/09/2025 10:45 AM EST Office Visit [facility] RHEUM[facility] [address] [address] Vicente Wells DO [address] [phone] documented as of this encounter Visit Diagnoses Not on filedocumented in this encounter Care Teams Closing Manager Relationship Specialty Start Date End Date Luis Hatfield MD [address] [place] [address] PCP - General Family Medicine 06/13/24 documented as of this encounter
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
--- OUTSIDE RECORDS SUMMARY | 2025-01-23 11:02 | XMS_ITS | Encounter Summary ---
Author Organization [facility] Address [address] [place] [address] Care Team Providers Care Film Developer Name Role Phone Luis Hatfield MD Primary Care Provider [phone] Encounter Details Date Type Department Care Team [...] drink first t kimberlyn in the morning (EYE-NATURAL RESOURCES TECHNICIAN) to steady your nerves or to get rid of a hangover? 0 09/11/2024 CAGE Questionnaire Score 0 025 Utilities Answer Date Recorded In the past 12 months has th e [employer], gas, oil, or water company threatened to [...] 4:30 PM EDT Office Visit [facility] Multidisciplinary Oncology Clinic [address] [place] [address] Ochoa Matias MD [address] [place] [address] documented as of this encounter Visit Diagnoses [...] documented as of this encounter Care Teams Film Developer Relationship Specialty Start Date End Date Luis Hatfield MD 1210 [facility] [address] [place] [address] PCP - General 07/24/24 documented as of this encounter
--- OUTSIDE RECORDS SUMMARY | 2025-01-23 11:03 | XMS_ITS | Clinical Summary ---
Author Organization [facility] Address [address] [place] [address] Care Team Providers Care Fundraiser Name Role Phone Luis Hatfield MD Primary Care Provider [phone] Allergies Active Allergy Reactions Criticality Noted Date [...] Encounter [facility] [address] [place] [address] Liliana Parra Malignant neoplasm of urinary bladder, unspecified site (CMS/HCC) Discharge Disposition: Home or Self Care 12/20/2024 Travel 12/02/2024 Telephone [facility] [address] [place] [address] Cecille Escobedo RN 11/26/2024 Telephone [facility] [address] [place] [id number] Ochoa Matias MD [facility] 11/01/2024 Telephone [facility] [address] [place] [address] Ochoa Matias MD 10/24/2024 Telephone [facility] [address] [place] [id number] Ochoa Matias MD [facility] from Last 3 Months Social History Tobacco Use Types Packs/Day Years Used Date Smoking Tobacco: Former Cigarettes 0.1 51.6 S tarted: 1973 Smokeless Tobacco: Never Tobacco [...] in the past 12 m [facility], were you homeless or living in [...] first t kimberlyn in the morning (EYE-MANAGER MERCHANDISING) to steady your nerves or to get rid of a hangover? 0 09/11/2024 CAGE Questionnaire Score 0 025 Utilities Answer Date Recorded In the past 12 months has th [employer], gas, oil, or water company threatened [...] Description 02/05/2025 4:30 PM EDT Office Visit [facility] Multidisciplinary Oncology Clinic [address] [place] [address] Ochoa Matias MD [address] [facility] [address] [place] [address] Health Maintenance Due Date Last Done Comments [facility]-Bone Density Scan 1955 [facility]-Medicare Annual Wellness (AWV) 1955 [facility]-Infant/Child/Adol SDOH Screenings 1955 XSF-[id number]-08 Vaccine (#1) 1959 [facility]-DTaP,Tdap,and Td Vaccines (1 [...] this topic Medical Devices Implanted Type Area Special Procedures Tech Device Identifier Shelf Expiration Date Model / Serial / Lot Stent Ureteral Double Pigtail Pos 6fr 26cm - S. - [id number] Implanted:Qty: 1 on 07/23/2024 by Ochoa Matias MD at [facility] Stent N/A: [id number] 03/11/2026 [id number] / . / [id number] Procedures Procedure Name Priority Date/Time Associated Diagnosis [...] bilateral percutaneous nephrostomy tube exchange using 10 [place] locking pigtail drainage catheters. PLAN: Nephrostomy tube [...] for routine bilateral nephrostomy tube exchange. TECHNIQUE: Supervisor Dimension Warehouse: Sundeep Bowman MD Supervising attending: Liang Rodriguez [...] antisepsis, followed by sterile barrier draping A telegraph and teletype operator film was performed to document the [...] were no immediate complication. COMPARISON: None. FINDINGS: Pitching Coach images and nephrostograms demonstrate bilateral percutaneous nephrostomy tubes in expected location. COMPLICATION: No. Procedure Note Liang Rodriguez MD - 12/20/2024 CLINICAL INDICATION: 69-year-old female who presents for routine bilateral nephrostomy tubeexchange. TECHNIQUE: Supervisor Dimension Warehouse: Sundeep Bowman MD Supervising attending: Liang Rodriguez [...] cutaneousantisepsis, followed by sterile barrier draping A telegraph and teletype operator film was performed to document the [...] there were no immediatecomplication. COMPARISON: None. FINDINGS: Pitching Coach images and nephrostograms demonstrate bilateral percutaneousnephrostomy tubes [...] MD on 12/20/2024 10:50 AM Kristen Bryant AQUATIC PERFORMER IMG IR PROCEDURES Final Result * Hepatitis C Antibody - ED (07/22/2024 7:54 PM EST) Hepatitis C Antibody Negative Negative 07/22/2024 9:11 PM EST [facility] Blood Venous blood specimen / Unknown Venipuncture / Unknown 07/22/2024 7:54 PM EST 07/22/2024 8:09 PM EST [facility] BLOOD ORDERABLES Missy sun Result [facility] [address] [place] [address] from Last 3 Months or Most Recently Relevant to Health Maintenance Insurance [facility] MEDICARE Advance Directives * Full [...] Patient has decision-making capacity? Yes Care Teams Fundraiser Relationship Specialty Start Date End Date Luis Hatfield MD [address] [facility] [address] [place] [address] PCP - General 07/24/24
--- OUTSIDE RECORDS SUMMARY | 2025-01-23 11:03 | XMS_ITS | Encounter Summary ---
Author Organization [facility] Address [address] [id number] Care Team Providers Care Lens Hardener Name Role Phone Luis Hatfield MD Primary Care Provider [phone] Encounter Details Date Type Department Care Team [...] Office Visit [facility] [address] [phone] Vicente Wells DO [address] [address] documented as of this encounter Visit Diagnoses Not on filedocumented in this encounter Care Teams Lens Hardener Relationship Specialty Start Date End Date Luis Hatfield MD [address] [place] [facility] [address] [place] [address] PCP - General Family Medicine 06/13/24 documented as of this encounter
--- OUTSIDE RECORDS SUMMARY | 2025-01-23 11:03 | XMS_ITS ---
Author Organization [facility] Address [address] [place] [address] Care Team Providers Care Recreational Sports Director Name Role Phone Luis Hatfield MD Primary Care Provider [phone] Active Problems Problem Noted Date Diagnosed Date [...]
--- OUTSIDE RECORDS SUMMARY | 2025-01-23 11:03 | XMS_ITS | Encounter Summary ---
Author Organization [facility] Address [address] [place] [address] Care Team Providers Care Physical Therapy Attendant Name Role Phone Luis Hatfield MD Primary Care Provider [phone] Encounter Details Date Type Department Care Team (Late Contact Info) Description 12/26/2024 Results Follow-Up [facility] [address] [address] Vicente Wells DO [address] [address] Social History Tobacco Use Types Packs/Day Years [...] EST Office Visit [facility] [address] [address] Vicente Wells DO [address] [phone] documented as of this encounter Visit Diagnoses Not on filedocumented in this encounter Care Teams Physical Therapy Attendant Relationship Specialty Start Date End Date Luis Hatfield MD [address] [place] [address] PCP - General Family Medicine 06/13/24 documented as of this encounter
[2025-01-23 11:08] VITALS: BMI 25.7
[2025-01-23 11:14] LABS: Hematocrit 33.7 % (37.0-47.0); Hemoglobin 11.1 g/dL (12.2-16.2); Immature Granulocytes % 0.2 %; Mean Corpuscular HGB Conc 32.9 g/dL (31.8-35.4); Mean Corpuscular Hemoglobin 29.4 pg (27.0-31.2); Mean Corpuscular Volume 89.4 fl (81-99); Nucleated Red Blood Cells % 0 %; Platelet Count 343 K/mm3 (142-424); Red Blood Count 3.77 M/mm3 (4.20-5.40); Red Cell Distribution Width-SD 57.2 fL; White Blood Count 4.9 K/mm3 (4.8-10.8)
[2025-01-23 11:24] LABS: Alanine Aminotransferase 14 U/L (12-78); Albumin Level 4.0 g/dl (3.5-5.0); Albumin/Globulin Ratio 1.7 (1.1-1.8); Alkaline Phosphatase 75 U/L (38-126); Anion Gap 8.8 mEq/L (5-15); Aspartate Amino Transferase 31 U/L (14-36); Bilirubin,Total 1.0 mg/dl (0.2-1.3); Blood Urea Nitrogen 11 mg/dl (7-17); Calcium 9.0 mg/dl (8.4-10.2); Carbon Dioxide 28 mmol/L (22.0-30.0); Chloride 104 mmol/L (98-107); Creatinine Clearance Estimated 53 mL/min (50-200); Creatinine,Serum 0.90 mg/dl (0.52-1.04); Estimated Glomerular Filt Rate 62 ml/min (>60); GFR (African American) 75 ML/MIN (>60); Globulin 2.3 g/dL (1.3-3.2); Glucose 96 mg/dl (74-100); Potassium 3.8 mmoL/L (3.5-5.1); Sodium 137 mmol/L (136-145); Total Protein,Serum 6.3 g/dl (6.3-8.2)
[2025-01-23] MEDS: PROCHLORPERAZINE 10MG TABLET 10 MG PO (11:50)
[2025-01-23 11:54] LABS: Thyroid Stimulating Hormone 0.97 uIU/mL (0.465-4.68)
[2025-01-23] MEDS: SODIUM CHLORIDE 0.9% IV (12:14)
[2025-01-23] MEDS: ENFORTUMAB VEDOTIN EJFV IV (12:14)
[2025-01-23] MEDS: SODIUM CHLORIDE 0.9% 100ML BAG 100 ML IV (12:20)
[2025-01-23 12:30] VITALS: BP 144/78; PULSE 86; RESP 18; TEMP 36.8; O2SAT 95
[2025-01-23 12:57] VITALS: BP 131/69; PULSE 85
[2025-01-23] MEDS: PEMBROLIZUMAB 200 MG in 0.9 % SODIUM CHLORIDE 50 ML 116 MG IV (12:58)
[2025-01-23 13:05] VITALS: BP 132/73; PULSE 85
[2025-01-23 13:33] VITALS: BP 135/66; PULSE 87
== END 2025-01-23 13:40 | disposition home or self-care (01) ==
LOC: INF 10:58
PROVIDERS: PCP Family Medicine; Visit Provider Internal Medicine Medical Oncology
DX: C67.9 Malignant neoplasm of bladder, unspecified (principal)
CPT/HCPCS: 80053; 82533; 84443; 85025; 96413; 96417; J9177; J9271; Q0164

== ENCOUNTER 2025-01-30 09:08 | Outpatient (CLI) | payer MEDICARE, SELFPAY ==
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
--- OUTSIDE RECORDS SUMMARY | 2024-12-20 07:18 | XMS_ITS | Encounter Summary ---
Author Organization [facility] Address [address] [place] [address] Care Team Providers Care Resident Care Spec Name Role Phone Luis Hatfield MD Primary Care Provider [phone] Reason for Referral * Imaging (Routine) - Closed Specialty Diagnoses / Procedures Referred By Stephen parks Referred To Contact Radiology Diagnoses Malignant neoplasm of urinary bladder, unspecified site (CMS/HCC) Procedures IR Nephrostomy Tube Exchange Kristen Bryant APRN [address] [place] [address] Phone: tel: fax: Referral ID Status Reason Start Date Expiration Date Visits Re quested Visits Authorized [id number] Closed 10/09/2024 04/10/2026 1 1 Reason for Visit * Imaging (Routine) - Closed Specialty Diagnoses / Procedures Referred By Stephen parks Referred To Contact Radiology Diagnoses Malignant neoplasm of urinary bladder, unspecified site (CMS/HCC) Procedures IR Nephrostomy Tube Exchange Kristen Bryant APRN [address] [place] [address] Phone: tel: fax: Referral ID Status Reason Start Date Expiration Date Visits Re quested Visits Authorized [id number] Closed 10/09/2024 04/10/2026 1 1 Encounter Details Date Type Department Care Team (Latest Contact Info) Description 12/20/2024 7:18 AM EDT - 12/20/2024 11:59 PM EDT Hospital Encounter [facility] Interventional Radiology [address] [place] [address] AidaMihirLiliana Malignant neoplasm of urinary bladder, unspecified [...] drink first t kimberlyn in the morning (EYE-HOG OPERATOR) to steady your nerves or to get rid of a hangover? 0 09/11/2024 CAGE Questionnaire Score 0 025 Utilities Answer Date Recorded In the past 12 months has th [employer], gas, oil, or water company threatened to [...] call: Vascular & Interventional Radiology Clinic at [phone] Monday - Monday 8:00 AM to 4:30 PM After hours, weekends, and holidays please call [phone] and ask for the Interventional Radiology provider/Resident on-call For Emergencies please go to the nearest Emergency Room or dial 911. Intervention Radiology Appointments: If you need to reschedule a procedure, please call our Schedulers at [phone], option 4. If you need to schedule or reschedule a clinic appointment, please call [phone]. [facility] Vascular and Interventional Radiology Clinic [address] [place] [address] documented in this encounter Medications at Time [...] from the original note were not included. [id number] Percutaneous Nephrostomy You had a procedure called [...] and warm water or an alcohol-based hand screen cleaner ?? Disposable medical gloves - they [...] 4. Wipe the skin gently in a flandreau. Move away from the drain tube in [...] hands with soap & water or hand screen cleaner and put on a new pair [...] hands with soap and water or hand screen cleaner. They can also put on a [...] syringe to the needleless port with a [id number]-jwt-uwvpm motion. ? Flush the tube: Push on [...] your tube from getting blocked. * [facility] Liliana [facility] - 12/20/2024 9:46 AM EDT Images from the original note were not included. [id number] Discharge Instructions for Percutaneous Nephrostomy You had [...] symptoms Last Reviewed Date: 2022 00:00:00 ?? [id number] [employer]. All rights reserved. This information is not [...] been discussed with the patient and/or their lifeline representatives. All questions answered and they agree to [...] had enough tubes placed 09/12/2024 with 8 Gabonese bilaterally. Shedoes not report any symptoms or [...] 93%. Results Review {Vanishing Link Review Results :[id number] I have reviewed the latest lab and [...] [facility] [address] [place] [address] Ochoa Matias MD [address] [place] [address] documented as of this encounter Procedures Procedure [...] bilateral percutaneous nephrostomy tube exchange using 10 Gabonese locking pigtail drainage catheters. PLAN: Nephrostomy tube [...] for routine bilateral nephrostomy tube exchange. TECHNIQUE: [facility] Nurse Practitioner: Sundeep Bowman MD Supervising attending: Liang Rodriguez [...] antisepsis, followed by sterile barrier draping A ship worker film was performed to document the location [...] were no immediate complication. COMPARISON: None. FINDINGS: Pharm Tech images and nephrostograms demonstrate bilateral percutaneous nephrostomy tubes in expected location. COMPLICATION: No. Procedure Note Liang Rodriguez MD - 12/20/2024 CLINICAL INDICATION: 69-year-old female who presents for routine bilateral nephrostomy tubeexchange. TECHNIQUE: [facility] Nurse Practitioner: Sundeep Bowman MD Supervising attending: Liang Rodriguez [...] cutaneousantisepsis, followed by sterile barrier draping A ship worker film was performed to document the location [...] there were no immediatecomplication. COMPARISON: None. FINDINGS: Pharm Tech images and nephrostograms demonstrate bilateral percutaneousnephrostomy tubes [...] on 12/20/2024 10:50 AM Kristen Donovan Manny SPEED BELT SANDER TENDER IMG IR PROCEDURES Final Result documented in [...] documented as of this encounter Care Teams Resident Care Spec Relationship Specialty Start Date End Date Luis Hatfield MD [address] [place] [address] PCP - General 07/24/24 documented as of this encounter
--- OUTSIDE RECORDS SUMMARY | 2024-12-26 10:30 | XMS_ITS | Encounter Summary ---
Author Organization [facility] Address [address] [place] [address] Care Team Providers Care Sr Vice President Name Role Phone Luis Hatfield MD Primary Care Provider [phone] Reason for Visit * Reason Comments Seropositive rheumatoid arthritis 6 veronica h follow up Encounter Details Date Type Department Care Team (Latest Contact Info) Description 12/26/2024 10:30 AM EDT Office Visit [facility] RHEUMATOLOGY [address] [phone] Nguyen Romero APRN [address] [address] Seropositive rheumatoid arthritis (Primary Dx); Systemic lupus [...] DNA 13.0 (<4.0), Centromere and Chromatin normal, CIVIL TECHNICIAN and SCL 70 normal, Christine normal, SSA and SSB normal, total bilirubin 1.4, Glucose 117, CMP was ok otherwise, CCP negative, CRP Normal, RF 110 (<14.0 normal), ESR normal, TSH normal * Medications/treatments/interventions tried include: Tylenol, meloxicam, Advil, CBD oil, Tumeric, Aspirin, Plaquenil, she has seen podiatry (Miky Steele DPM), she has seen line painting machine operator (Dr. Jed Trevino), Ketamine, gabapentin, She has [...] lesion. She brought in medical records from [facility] for us to review. Subjective Review [...] DNA 13.0 (<4.0), Centromere and Chromatin normal, CIVIL TECHNICIAN and SCL 70 normal, Christine normal, SSA and SSB normal, total bilirubin 1.4, Glucose 117, CMP was ok otherwise, CCP negative, CRP Normal, RF 110 (<14.0 normal), ESR normal, TSH normal * Medications/treatments/interventions tried include: Tylenol, meloxicam, Advil, CBD oil, Tumeric, Aspirin, Plaquenil, she has seen podiatry (Miky Steele DPM), she has seen line painting machine operator (Dr. eJd Trevino), Ketamine, gabapentin, She has had back [...] 06/28/2025) for Dr. Wells. Nguyen Romero APRN [facility] Rheumatology of [place] documented in this encounter Plan of Treatment Upcoming Encounters Date Type Department Care Team (Late st Contact Info) Description 07/09/2025 10:45 AM EST Office Visit [facility] RHEUMATOLOGY [address] [place] [phone] Vicente Wells DO [address] [phone] Scheduled Orders Name Type Priority Associated Diagnoses [...] (Approximate), Expires: 03/28/2026 dsDNA Antibody by IFA, Crithidia luciliae, with Reflex to Titer Lab Routine Systemic lupus erythematosus, unspecified SLE type, unspecified organ involvement status Expected: 12/31/2024 (Approximate), Expires: 03/28/2026 UA / M With / Rflx Culture([facility] ONLY) - Urine, Clean Catch Lab Routine Systemic lupus erythematosus, unspecified SLE type, unspecified organ involvement status Expected: 12/31/2024 (Approximate), Expires: 03/28/2026 documented as of this encounter Results * Hydroxychloroquine, Whole Blood (01/17/2025) Blood us Nguyen Romero LOCKSMITH HELPER LAB BLOOD ORDERABLES F inal Result [facility] (AMBULATORY) [address] [place] [address], documented in this encounter Visit Diagnoses Diagnosis Seropositive rheumatoid arthritis- Primary Systemic lupus erythematosus, unspecified SLE type, unspecified organ involvement status High risk medication use Primary osteoarthritis involving multiple joints NSAID long-term use Encounter for long-term (current) use of non-steroidal anti-inflammatories documented in this encounter Care Teams Sr Vice President Relationship Specialty Start Date End Date Luis Hatfield MD [address] [place] [address] PCP - General Family Medicine 06/13/24 documented as of this encounter
--- OUTSIDE RECORDS SUMMARY | 2025-01-27 12:05 | XMS_ITS | Encounter Summary ---
Author Organization Healthcare Address [address] [place] [address] Care Team Providers Care Technology Sales Consultant Name Role Phone Luis Hatfield MD Primary Care Provider [phone] Reason for Visit * Reason Comments ileostomy concern Encounter Details Date Type Department Care Team ([facility] Contact Info) Description 01/27/2025 12:05 PM EDT - 01/27/2025 7:02 PM EDT Emergency [facility] A Emergency Department [address] [place] [address] Karolyn Toro MD [facility] [address] Sheree Augustine MD [address] [place] [phone] UTI (urinary tract infection), bacterial (Primary Dx); Malfunction of nephrostomy tube ([facility]/HCC); Hydronephrosis, unspecified hydronephrosis type Discharge Disposition: Home [...] any time in the past 12 m [facility], were you homeless or living in [...] drink first t kimberlyn in the morning (EYE-WAREHOUSE LABORER) to steady your nerves or to get [...] EDT You were seen and evaluated at [facility] Emergency Department. Urology saw you in the department and evaluated do. They were able to flush both nephrostomy tubes. Per their recommendations you should flush your nephrostomy tubes daily. If you have complications with flushing or ear tubes drainingyou may call the IR clinic at [phone] or be seen in the emergency department. [...] tablet by mouth 2 times a day. cefadroxil (Duricef) 500 MG capsuleIndicatio ns:UTI (urinary tract infection), bacterial Take 1 capsule by mouth 2 times a day for 5 days. 10 capsule 01/27/2025 dexamethasone (Decadron) 4 MG tablet Take 2 [...] as of this encounter Miscellaneous Notes * ED Provider Notes - Nidia Martin [...] Instructions You were seen and evaluated at [facility] Emergency Department. Urology saw you in the department and evaluated do. They were able to flush both nephrostomy tubes. Per their recommendations you should flush your nephrostomy tubes daily. If you have complications with flushing or ear tubes drainingyou may call the IR clinic at [phone] or be seen in the emergency department. [...] distress at the time of discharge. AVS (Khmer Snapshot) - Printed 01/27/2025 Follow-Ups: Follow up [...] Procedure Laterality Date CHOLECYSTECTOMY N/A Cholecystectomy from [facility] NECK SURGERY N/A Neck Surgery from [facility] [3] No family history on file. [4] [...] and Vomiting Nidia Harrington MD Resident 01/28/25 [id number] Cosigned by Karolyn Toro MD at 01/28/2025 [...] 4:30 PM EDT Office Visit [facility] Multidisciplinary Oncology Clinic [address] [place] [address] Ochoa Matias MD [address] [address] documented as of this encounter Procedures Procedure [...] ORDERABLES Final Res ult Performing Organization Address [facility] de Phone Number [facility] [address] [place] [address] * Urine Culture (01/27/2025 3:37 PM EDT) [...] ORD ERABLES Final Result Performing Organization Address [facility] Co de Phone Number [facility] [address] [place] [address] * Urinalysis Microscopic Examination (01/27/2025 3:37 PM EDT) Urine Urine specimen obtained by clean catch procedure / Unknown Non-blood Collection / Unknown 01/27/2025 3:37 PM EDT 01/27/2025 3:39 PM EDT us Karolyn Toro MD LAB URINE ORDERABLES Final Res ult Performing Organization Address City/[facility]/ZIP Co de Phone Number [facility] [address] [place] [address] * Urine Stafford Panel (01/27/2025 3:37 PM EDT) Extra Sent for Culture 01/27/2025 6:[address] [facility] Urine Urine specimen obtained by clean catch procedure / Unknown Non-blood Collection / Unknown 01/27/2025 3:37 PM EDT 01/27/2025 4:29 PM EDT Karolyn Toro MD LAB URINE ORDERABLES Final Res ult Performing Organization Address [facility]/ZIP Co de Phone Number [facility] [address] [place] [address] * (ABNORMAL) Urinalysis with reflex microscopic (Culture NOT Included) (01/27/2025 3:37 PM EDT) Color, Urine Yellow LAB URINALYSIS - AUTOMATED METHOD 01/27/2025 4:[address] [facility] Clarity, Urine Cloudy LAB URINALYSIS - AUTOMATED METHOD 01/27/2025 4:[address] [facility] Spec [place], Urine >1.030(H) 1.005 - 1.030 LAB URINALYSIS [...] ult [facility] [address] [place] [address] * CT Abdomen Pelvis w IV Contrast [...] ult [facility] [address] [place] [address] * (ABNORMAL) CBC w/diff (01/27/2025 12:04 PM [...] ult [facility] [address] [place] [address] documented in this encounter Visit Diagnoses Diagnosis [...] documented as of this encounter Care Teams Technology Sales Consultant Relationship Specialty Start Date End Date Luis Hatfield MD [address] [place] [address] PCP - General 07/24/24 documented as of this encounter
--- OUTSIDE RECORDS SUMMARY | 2025-01-30 09:27 | XMS_ITS | Encounter Summary ---
Author Organization [facility] Address [address] [id number] Care Team Providers Care Director Medicaid Name Role Phone Luis Hatfield MD Primary Care Provider [phone] Encounter Details Date Type Department Care Team (Late Contact Info) Description 07/12/2024 Telephone [facility] RHEUMATOLOGY [address] [address] Vicente Wells DO [address] [phone] Social History Tobacco Use Types Packs/Day Years [...] Description 07/09/2025 10:45 AM EST Office Visit [facility] RHEUMATOLOGY [address] [address] Vicente Wells DO [address] [phone] documented as of this encounter Visit Diagnoses Not on filedocumented in this encounter Care Teams Director Medicaid Relationship Specialty Start Date End Date Luis Hatfield MD [address] [facility] [address] [place] [address] PCP - General Family Medicine 06/13/24 documented as of this encounter
--- OUTSIDE RECORDS SUMMARY | 2025-01-30 09:27 | XMS_ITS | Clinical Summary ---
Author Organization [facility] Address [address] [place] [address] Care Team Providers Care Tube Sorter Name Role Phone Luis Hatfield MD Primary Care Provider [phone] Allergies Active Allergy Reactions Criticality Noted Date Comments Codeine Nausea And Vomiting, Provider Review Needed High 12/05/2023 Medications Cholecalciferol (VITAMIN D-3 PO) Take 1 capsule by mouth Daily. Active vitamin B-12 (CYANOCOBALAMIN ) 500 MCG tablet Take 1 tablet by [...] tablet by mouth Every 12 (Twelve) Hours. 10/02/2023 Active rosuvastatin (CRESTOR) 40 MG tablet Take 1 tablet by mouth Every Night. 11/02/2023 Active irbesartan (AVAPRO) 300 MG tablet 1 tablet. Active prochlorperazin e (COMPAZINE) 10 MG tablet Take 1 tablet by mouth Every 6 (Six) Hours As Needed for Nausea or Vomiting. 12/23/2024 Active HYDROcodone-kacie taminophen (NORCO) 5-325 MG per tablet Take 1-2 tablets by mouth Every 8 (Eight) Hours As Needed. for pain Active hydroxychloroqu ine (PLAQUENIL) 200 MG tablet Take 1 tablet by mouth 2 (Two) Times a Day. 60 tablet 5 12/26/2024 Active Active Problems Problem Noted Date Diagnosed [...] DNA 13.0 (<4.0), Centromere and Chromatin normal, DISTILLERY WORKER GENERAL and SCL 70 normal, Christine normal, SSA and SSB normal, total bilirubin 1.4, Glucose 117, CMP was ok otherwise, CCP negative, CRP Normal, RF 110 (<14.0 normal), ESR normal, TSH normal * Medications/treatments/interventions tried include: Tylenol, meloxicam, Advil, CBD oil, Tumeric, Aspirin, Plaquenil, she has seen podiatry (Miky Steele DPM), she has seen touch up painter (Dr. Jed Trevino), Ketamine, gabapentin, She [...] DNA 13.0 (<4.0), Centromere and Chromatin normal, DISTILLERY WORKER GENERAL and SCL 70 normal, Christine normal, SSA and SSB normal, total bilirubin 1.4, Glucose 117, CMP was ok otherwise, CCP negative, CRP Normal, RF 110 (<14.0 normal), ESR normal, TSH normal * Medications/treatments/interventions tried include: Tylenol, meloxicam, Advil, CBD oil, Tumeric, Aspirin, Plaquenil, she has seen podiatry (Miky Steele DPM), she has seen touch up painter (Dr. Jed Trevino), Ketamine, gabapentin, She [...] DNA 13.0 (<4.0), Centromere and Chromatin normal, DISTILLERY WORKER GENERAL and SCL 70 normal, Christine normal, SSA and SSB normal, total bilirubin 1.4, Glucose 117, CMP was ok otherwise, CCP negative, CRP Normal, RF 110 (<14.0 normal), ESR normal, TSH normal * Medications/treatments/interventions tried include: Tylenol, meloxicam, Advil, CBD oil, Tumeric, Aspirin, Plaquenil, she has seen podiatry (Miky Steele DPM), she has seen touch up painter (Dr. Jed Trevino), Ketamine, gabapentin, She has had back injections 1. Continue/refill hydroxychloroquine 2. Check labs 3. Continue/refill meloxicam PRN 4. We gave her a handout on rheumatoid arthritis to take home and review 5. Follow up in 4-6 months Resolved Problems Problem Noted Date Diagnosed Date Resolved Date Rheumatoid arthritis 12/25/2023 025 Encounters Date Type Department Care Team Description 01/28/2025 Results Follow-Up [facility] RHEUMATOLOGY [address] [place] [phone] Nguyen Romero APRN 12/26/2024 10:30 AM EDT Office Visit [facility] RHEUM[facility]Y [address] [place] [phone] Nguyen Romero APRN Seropositive rheumatoid arthritis (Primary Dx); Systemic lupus erythematosus, unspecified SLE type, unspecified organ involvement status; High risk medication use; Primary osteoarthritis involving multiple joints; NSAID long-term use 12/26/2024 Results Follow-Up [facility] RHEUMATOLOGY [address] [place] [phone] Vicente Wells, 12/26/2024 Results Follow-Up [facility] RHEUMATOLOGY [address] [phone] Vicente Wells, 12/26/2024 Travel from Last 3 [...] Visit [facility] RHEUMATOLOG[facility] [address] [address] Vicente Wells, DO [address] [address] Health Maintenance Due Date Last Done Comments [...] - LABS 01/17/2025 SCANNED - LABS 01/17/2025 HYDROXYCHLOROQUINE, WHOLE BLOOD Routine 01/17/2025 Systemic lupus erythematosus, unspecified SLE type, unspecified organ involvement status SCANNED - LABS 12/12/2024 SCANNED - LABS 11/07/2024 SCANNED - LABS 10/31/2024 SCANNED - IMAGING 10/31/2024 from Last 3 Months Results * LABS SCANNED (01/17/2025) Only the most recent of8 resultswithin the time period is included. Nguyen Romero SANDER HAND LAB BLOOD ORDERABLES F inal Result * Hydroxychloroquine, Whole Blood (01/17/2025) Blood Nguyen Romero SANDER HAND LAB BLOOD ORDERABLES F inal Result [facility] (AMBULATORY) [address] [place] [address], [place] [phone] * IMAGING SCANNED (10/31/2024) Anatomical Region Laterality Modality Radiographic Minnie ging Vicente Wells DO IMG DIAGNOSTIC IMAGING ORDERABLES Final Result from Last 3 Months Insurance [facility] MEDICARE ADVANTAGE PPO Care Teams Tube Sorter Relationship Specialty Start Date End Date Luis Hatfield MD [address] [facility] [address] [place] [address] PCP - General Family Medicine 06/13/24
--- OUTSIDE RECORDS SUMMARY | 2025-01-30 09:27 | XMS_ITS | Encounter Summary ---
Author Organization Healthcare Address [address] [phone] Care Team Providers Care Senior Process Engineer Name Role Phone Luis Hatfield MD Primary Care Provider [phone] Encounter Details Date Type Department Care Team (Late st Contact Info) Description 08/19/2024 Lab Requisition [facility] [address] [place] [address] Ochoa Matias MD [address] [place] [address] Malignant neoplasm of bladder, unspecified (CMS/HCC) Social [...] any time in the past 12 m [facility], were you homeless or living in a prison (including now)? No 07/24/2024 CAGE ASSESSMENT Answer [...] drink first t kimberlyn in the morning (EYE-SCRIPT GIRL) to steady your nerves or to get [...] Description 02/05/2025 4:30 PM EDT Office Visit [facility] Multidisciplinary Oncology Clinic [address] [place] [address] Ochoa Matias MD [address] [place] [address] documented as of this encounter Procedures Procedure [...] name Selwyn Geller 09/05/2024 7:35 AM EDT [facility] Comment:[id number], A3 Test Result see scan 09/05/2024 7:35 AM EDT [facility] See Scanned Result 09/05/2024 7:35 AM EDT [facility] Tissue 07/23/2024 1:18 PM EST 08/19/2024 1:48 PM EDT us Ochoa Matias MD LAB REF LAB BLOOD AND FLUID ORD Final Result [facility] [address] [place] [address] * - AP Miscellaneous Test (07/23/2024 1:18 PM EST) Test name Selwyn Espinosa Viviane 09/09/2024 8:04 AM EDT [facility] Comment:[id number], A3 Test Result see scan 09/09/2024 8:04 AM EDT [facility] See Scanned Result 09/09/2024 8:04 AM EDT [facility] Tissue 07/23/2024 1:18 PM EST 08/19/2024 1:48 PM EDT us Ochoa Matias MD LAB REF LAB BLOOD AND FLUID ORD Final Result [facility] [address] [place] [address] documented in this encounter Visit Diagnoses Diagnosis Malignant neoplasm of bladder, unspecified (CMS/HCC) documented in this encounter Additional Health Concerns Assessment Noted Time A Body Mass Index follow-up plan has been documented for the patient 07/25/2024 1:21 PM EST documented as of this encounter Care Teams Senior Process Engineer Relationship Specialty Start Date End Date Luis Hatfield MD [address] [place] [address] PCP - General 07/24/24 documented as of this encounter
--- OUTSIDE RECORDS SUMMARY | 2025-01-30 09:27 | XMS_ITS | Encounter Summary ---
Author Organization [facility] Address [address] [place] [address] Care Team Providers Care Truck Repair Supervisor Name Role Phone Luis Hatfield MD Primary Care Provider Encounter Details Date Type Department Care Team (Late Contact Info) Description 01/28/2025 Results Follow-Up [facility] RHEUMATOLOGY [address] [phone] Nguyen Romero APRN [address] [phone] Social History Tobacco Use Types Packs/Day Years [...] Description 07/09/2025 10:45 AM EST Office Visit [facility]HEUM[facility] [address] [address] Vicente Wells DO [address] [phone] documented as of this encounter Visit Diagnoses Not on filedocumented in this encounter Care Teams Truck Repair Supervisor Relationship Specialty Start Date End Date Luis Hatfield MD [address] [address] [address] [facility] [address] [place] [address] PCP - General Family Medicine 06/13/24 documented as of this encounter
--- OUTSIDE RECORDS SUMMARY | 2025-01-30 09:27 | XMS_ITS | Encounter Summary ---
Author Organization [facility] Address [address] [id number] Care Team Providers Care Wedger And Gluer Name Role Phone Luis Hatfield MD Primary Care Provider [phone] Encounter Details Date Type Department Care Team ([facility] Contact Info) Description 07/12/2024 Telephone [facility] RHEUMATOLOGY [address] [address] Santiago Anders MD [address] [phone] Social History Tobacco Use Types Packs/Day Years [...] Visit [facility] RHEUM[facility] [address] [address] Vicente Wells DO [address] [address] documented as of this encounter Visit Diagnoses Not on filedocumented in this encounter Care Teams Wedger And Gluer Relationship Specialty Start Date End Date Luis Hatfield MD [address] [facility] [address] [place] [id number] PCP - General Family Medicine 06/13/24 documented as of this encounter
--- OUTSIDE RECORDS SUMMARY | 2025-01-30 09:28 | XMS_ITS | Encounter Summary ---
Author Organization [facility] Address [address] [place] [address] Care Team Providers Care Net Finisher Name Role Phone Luis Hatfield MD Primary Care Provider [phone] Encounter Details Date Type Department Care Team (Late Contact Info) Description 12/26/2024 Results Follow-Up [facility] RHEUMATOLOGY [address] [address] Vicente Wells DO [address] [address] Social History Tobacco Use Types Packs/Day Years [...] Description 07/09/2025 10:45 AM EST Office Visit [facility] RHEUMATOLOG[facility] [address] [address] Vicente Wells DO [address] [phone] documented as of this encounter Visit Diagnoses Not on filedocumented in this encounter Care Teams Net Finisher Relationship Specialty Start Date End Date Luis Hatfield MD [address] [place] [address] [place] [address] PCP - General Family Medicine 06/13/24 documented as of this encounter
--- OUTSIDE RECORDS SUMMARY | 2025-01-30 09:28 | XMS_ITS | Encounter Summary ---
Author Organization [facility] Address [address] [place] [address] Care Team Providers Care Boat Motor Mechanic Name Role Phone Luis Hatfield MD Primary Care Provider [phone] Encounter Details Date Type Department Care Team [...] drink first t kimberlyn in the morning (EYE-SCHOOL ADJUSTMENT COUNSELOR) to steady your nerves or to get rid of a hangover? 0 09/11/2024 CAGE Questionnaire Score 0 025 Utilities Answer Date Recorded In the past 12 months has th e [employer], gas, oil, or water company threatened to [...] Description 02/05/2025 4:30 PM EDT Office Visit [facility] Multidisciplinary Oncology Clinic [address] [place] [address] Ochoa Matias MD [address] [place] [address] documented as of this encounter Visit Diagnoses [...] documented as of this encounter Care Teams Boat Motor Mechanic Relationship Specialty Start Date End Date Luis Hatfield MD [address] [facility] [address] [place] [address] PCP - General 07/24/24 documented as of this encounter
--- OUTSIDE RECORDS SUMMARY | 2025-01-30 09:28 | XMS_ITS | Encounter Summary ---
Author Organization Healthcare Address [address] [place] [address] Care Team Providers Care Inspection Engineer Name Role Phone Luis Hatfield MD Primary Care Provider [phone] Encounter Details Date Type Department Care Team (Late st Contact Info) Description 12/02/2024 Telephone [facility] Interventional Radiology [address] [place] [address] Cecille Escobedo RN CH-VASCULAR & INTERVENTIONAL RADIOLOGY [...] drink first t kimberlyn in the morning (EYE-OPERATIONAL ASSISTANT) to steady your nerves or to get [...] Description 02/05/2025 4:30 PM EDT Office Visit [facility] Multidisciplinary Oncology Clinic [address] [place] [address] Ochoa Matias MD [address] [facility] [address] [place] [address] documented as of this encounter Visit Diagnoses [...] documented as of this encounter Care Teams Inspection Engineer Relationship Specialty Start Date End Date Luis Hatfield MD [address] [address] PCP - General 07/24/24 documented as of this encounter
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
--- OUTSIDE RECORDS SUMMARY | 2025-01-30 09:29 | XMS_ITS | Encounter Summary ---
Author Organization [facility] Address [address] [place] [address] Care Team Providers Care Stained Glass Window Designer Name Role Phone Luis Hatfield MD Primary Care Provider [phone] Encounter Details Date Type Department Care Team (Late Contact Info) Description 12/26/2024 Results Follow-Up [facility] RHEUMATOLOGY [address] [address] Vicente Wells DO [address] [address] Social History Tobacco Use Types Packs/Day Years [...] Description 07/09/2025 10:45 AM EST Office Visit [facility] RHEUMATOLOGY [address] [address] Vicente Wells DO [address] [phone] documented as of this encounter Visit Diagnoses Not on filedocumented in this encounter Care Teams Stained Glass Window Designer Relationship Specialty Start Date End Date Luis Hatfield MD [address] [place] [address] [place] [address] PCP - General Family Medicine 06/13/24 documented as of this encounter
--- OUTSIDE RECORDS SUMMARY | 2025-01-30 09:29 | XMS_ITS | Clinical Summary ---
Author Organization [facility] Address [address] [place] [address] Care Team Providers Care Perinatal Director Name Role Phone Luis Hatfield MD Primary Care Provider [phone] Allergies Active Allergy Reactions Criticality Noted Date [...] tablet Orally every 8 hours as needed 5 Active traMADol (Ultram) 50 MG tablet Take 1 tablet by mouth every 6 hours as needed. 5 Active buPROPion (Wellbutrin) 75 MG tablet Take 1 tablet by mouth 2 times a day. Active rosuvastatin (Crestor) 40 MG tablet Take 1 tablet by mouth 1 time each day. 4 Active cefadroxil (Duricef) 500 MG capsuleIndicati ons:UTI (urinary tract infection), bacterial Take 1 capsule by mouth 2 times a day for 5 days. 10 capsule 5 02/02/20 25 Active Active Problems Problem Noted Date Diagnosed [...] Encounters Date Type Department Care Team Description 01/27/2025 12:05 PM EDT - 01/27/2025 7:02 PM EDT Emergency [facility] Emergency Department [address] [place] [address] Karolyn Toro MD Owens, Susan E, MD UTI (urinary tract infection), bacterial (Primary Dx); Malfunction of nephrostomy tube ([facility]/HCC); Hydronephrosis, unspecified hydronephrosis type Discharge Disposition: Home or Self Care 01/27/2025 Travel 01/27/2025 Telephone [facility] [address] [place] [address] Ochoa Matias MD 12/20/2024 7:18 AM EDT - 12/20/2024 11:59 PM EDT Hospital Encounter [facility] Interventional Radiology [address] [place] [address] Liliana Parra Malignant neoplasm of urinary bladder, unspecified site (CMS/HCC) Discharge Disposition: Home or Self Care 12/20/2024 Travel 12/02/2024 Telephone [facility] Interventional Radiology [address] [place] [address] Cecille Escobedo RN 11/26/2024 Telephone [facility] [address] [place] [address] Ochoa Matias MD [facility] Care 11/01/2024 Telephone [facility] [address] [place] [address] Ochoa Matias MD from Last 3 Months [...] drink first t kimberlyn in the morning (EYE-HEEL SHAVER) to steady your nerves or to get [...] (114 lb) 01/27/2025 11:38 AM EDT Height 157.5 cm (5' 2 ) 12/20/2024 7:30 AM EDT Body Mass Index 20.85 12/20/2024 7:30 AM EDT Plan of Treatment Upcoming Encounters Date Type Department Care Team (Late st Contact Info) Description 02/05/2025 4:30 PM EDT Office Visit [facility] [address] [place] [address] Ochoa Matias MD [address] [place] [address] Health Maintenance Due Date Last Done Comments [facility]-Bone Density Scan 1955 [facility]-Medicare Annual Wellness (AWV) 1955 [facility]-/Child/Adol SDOH Screenings 1955 [id number]-61 Vaccine (#1) 1959 [facility]-DTaP,Tdap,and Td Vaccines (1 [...] this topic Medical Devices Implanted Type Area Sub Master Device Identifier Shelf Expiration Date Model / Serial / Lot Stent Ureteral Double Pigtail Pos 6fr 26cm - S. - [id number] Implanted:Qty: 1 on 07/23/2024 by Ochoa Matias MD at [facility] Stent N/A: [id number] 03/11/2026 [id number] / . / [id number] Procedures Procedure Name Priority Date/Time Associated Diagnosis Comments SEND CLARISSA MESSAGE STAT 01/27/2025 3: 37 PM EDT URINALYSIS MICROSCOPIC FOR UA REFLEX STAT 01/27/2025 3:37 PM EDT URINE STAFFORD PANEL STAT 01/27/2025 3:37 PM EDT URINALYSIS WITH REFLEX MICROSCOPIC STAT 01/27/2025 3:37 PM EDT URINALYSIS WITH REFLEX MICROSCOPIC AND CULTURE STAT 01/27/2025 3:37 PM EDT URINE CULTURE STAT 01/27/2025 3:[address] ABDOMEN PELVIS W IV CONTRAST STAT 01/27/2025 2:14 PM EDT BASIC METABOLIC PANEL, PLASMA STAT 01/27/2025 12:04 PM EDT CBC WITH AUTO DIFFERENTIAL STAT 01/27/2025 12:04 PM EDT IR NEPHROSTOMY TUBE EXCHANGE Routine 12/20/2024 9:20 AM EDT Malignant neoplasm of urinary bladder, unspecified site (CMS/HCC) HEPATITIS C ANTIBODY - ED W/REFLEX TO HCV QUANT PCR STAT 07/22/2024 7:54 PM EST from Last 3 Months or Most Recently Relevant to Health Maintenance Results * SEND CLARISSA MESSAGE (01/27/2025 3:37 PM EDT) Urine Urine specimen obtained by clean catch procedure / Unknown Non-blood Collection / Unknown 01/27/2025 3:37 PM EDT 01/27/2025 4:29 PM EDT us Karolyn Toro MD LAB URINE ORDERABLES Final Res ult Performing Organization Address [facility] Co de Phone Number [facility] [address] [place] [address] * Urine Stafford Panel (01/27/2025 3:37 PM EDT) Extra Sent for Culture 01/27/2025 6:01 PM [facility] Urine Urine specimen obtained by clean catch procedure / Unknown Non-blood Collection / Unknown 01/27/2025 3:37 PM EDT 01/27/2025 4:29 PM EDT us Karolyn Toro MD LAB URINE ORDERABLES Final Res ult Performing Organization Address [facility] de Phone Number [facility] [address] [place] [address] * Urinalysis Microscopic Examination (01/27/2025 3:37 PM EDT) Urine Urine specimen obtained by clean catch procedure / Unknown Non-blood Collection / Unknown 01/27/2025 3:37 PM EDT 01/27/2025 3:39 PM EDT us Karolyn Toro MD LAB URINE ORDERABLES Final Res ult Performing Organization Address [facility] Co de Phone Number [facility] [address] [place] [address] * (ABNORMAL) Urinalysis with reflex microscopic (Culture NOT Included) (01/27/2025 3:37 PM EDT) Color, Urine Yellow LAB URINALYSIS - AUTOMATED METHOD 01/27/2025 4:[address] [facility] Clarity, Urine Cloudy LAB URINALYSIS - AUTOMATED METHOD 01/27/2025 4:[address] [facility] Spec [place], Urine >1.030(H) 1.005 - 1.030 LAB URINALYSIS - AUTOMATED METHOD 01/27/2025 4:[address] [facility] pH, Urine 6.5 5.0 - 8.0 LAB URINALYSIS - AUTOMATED METHOD 01/27/2025 4:[address] [facility] Protein, Urine 100(A) Negative mg/dL LAB URINALYSIS - AUTOMATED METHOD 01/27/2025 4:[address] [facility] Glucose, Urine Negative Negative mg/dL LAB URINALYSIS - AUTOMATED METHOD 01/27/2025 4:[address] [facility] Ketones, Urine Negative Negative mg/dL LAB URINALYSIS - AUTOMATED METHOD 01/27/2025 4:[address] [facility] Blood, Urine Moderate(A) Negative LAB URINALYSIS - AUTOMATED METHOD 01/27/2025 4:[address] [facility] Bilirubin, Urine Negative Negative LAB URINALYSIS - AUTOMATED METHOD 01/27/2025 4:[address] [facility] Urobilinogen, Urine 1.0 0.2 to 1.0 mg/dL LAB URINALYSIS - AUTOMATED METHOD 01/27/2025 4:[address] [facility] Leukocytes, Urine Large(A) Negative LAB URINALYSIS - AUTOMATED METHOD 01/27/2025 4:[address] [facility] Nitrite, Urine Positive(A) Negative LAB URINALYSIS - AUTOMATED METHOD 01/27/2025 4:[address] [facility] RBC, Urine 16 - 30(A) 0 to 3 /HPF LAB URINALYSIS - AUTOMATED METHOD 01/27/2025 4:[address] [facility] Comment:This result was prev iously suppressed from the chart. WBC, Urine >50(A) 0 to 5 /HPF LAB URINALYSIS - AUTOMATED METHOD 01/27/2025 4:[address] [facility] Comment:This result was prev iously suppressed from the chart. Squamous Epithelial Cells 0 - 2 0 to 5 /HPF LAB URINALYSIS - AUTOMATED METHOD 01/27/2025 4:[address] [facility] Comment:This result was prev iously suppressed from the chart. Hyaline Casts 11 - 20(A) 0 to 5 /LPF LAB URINALYSIS - AUTOMATED METHOD 01/27/2025 4:[address] [facility] Comment:This result was prev iously suppressed from the chart. Bacteria, Urine Present Negative LAB URINALYSIS - AUTOMATED METHOD 01/27/2025 4:[address] [facility] Comment:This result was prev iously suppressed from the chart. Urine Urine specimen obtained by clean catch procedure / Unknown Non-blood Collection / Unknown 01/27/2025 3:37 PM EDT 01/27/2025 3:39 PM EDT us Karolyn Toro MD LAB URINE ORDERABLES Final Res ult Performing Organization Address [facility]/ZIP Co de Phone Number [facility] [address] [place] [address] * Urine Culture (01/27/2025 3:37 PM EDT) Culture >=100,000 CFU/mL Mixed urogenital , fecal, or skin meg present. 01/29/2025 1:[address] [facility] Comment:This is a corrected result. Previous organism was Gram Negative Elliot on 01/28/2025 at 1539 EDT. Urine Urine specimen obtained by clean catch procedure / Unknown Non-blood Collection / Unknown 01/27/2025 3:37 PM EDT 01/27/2025 4:29 PM EDT us Karolyn Toro MD LAB MICROBIOLOGY - GENERAL ORD ERABLES Final Result Performing Organization Address [facility]/ZIP Co de Phone Number [facility] [address] [place] [address] * CT Abdomen Pelvis w IV Contrast [...] on 01/27/2025 3:20 PM Karolyn Toro MD IM CT PROCEDURES Final Result * (ABNORMAL) CBC w/diff (01/27/2025 12:04 PM EDT) WBC Count 7.48 3.70 - 10.30 10*3/uL LAB HEMATOLOGY METHOD 01/27/2025 12:[address] [facility] RBC Count 4.17 3.90 - 5.20 10*6/uL LAB HEMATOLOGY METHOD 01/27/2025 12:[address] [facility] HGB 12.7 11.2 - 15.7 g/dL LAB HEMATOLOGY METHOD 01/27/2025 12:[address] [facility] HCT 36.1 34.0 - 45.0 % LAB HEMATOLOGY METHOD 01/27/2025 12:[address] [facility] Platelet Count 439(H) 155 - 369 10*3/uL LAB HEMATOLOGY METHOD 01/27/2025 12:[address] [facility] MCV 87 79 - 98 fL LAB HEMATOLOGY METHOD 01/27/2025 12:[address] [facility] MCH 30.5 26.0 - 32.0 pg LAB HEMATOLOGY METHOD 01/27/2025 12:[address] [facility] MCHC 35.2 30.7 - 35.5 g/dL LAB HEMATOLOGY METHOD 01/27/2025 12:[address] [facility] RDW 17.8(H) 11.5 - 14.5 % LAB HEMATOLOGY METHOD 01/27/2025 12:[address] [facility] MPV 8.1(L) 8.8 - 12.5 fL LAB HEMATOLOGY METHOD 01/27/2025 12:[address] [facility] nRBC 0.0 <=0.0 per 100 WBCs LAB HEMATOLOGY METHOD 01/27/2025 12:[address] [facility] Differential Type Automated LAB HEMATOLOGY METHOD 01/27/2025 12:[address] [facility] Neutrophils % 67 % LAB HEMATOLOGY METHOD 01/27/2025 12:[address] [facility] Lymphocytes % 18 % LAB HEMATOLOGY METHOD 01/27/2025 12:[address] [facility] Monocytes % 13 % LAB HEMATOLOGY METHOD 01/27/2025 12:[address] [facility] Eosinophils % 1 % LAB HEMATOLOGY METHOD 01/27/2025 12:[address] [facility] Basophils % 1 % LAB HEMATOLOGY METHOD 01/27/2025 12:[address] [facility] Immature Granulocytes % 0 % LAB HEMATOLOGY METHOD 01/27/2025 12:[address] [facility] Neutrophils Absolute 5.02 1.60 - 6.10 10*3/uL LAB HEMATOLOGY METHOD 01/27/2025 12:[address] [facility] Lymphocytes Absolute 1.32 1.20 - 3.90 10*3/uL LAB HEMATOLOGY METHOD 01/27/2025 12:[address] [facility] Monocytes Absolute 0.95(H) 0.30 - 0.90 10*3/uL LAB HEMATOLOGY METHOD 01/27/2025 12:[address] [facility] Eosinophils Absolute 0.09 0.00 - 0.50 10*3/uL LAB HEMATOLOGY METHOD 01/27/2025 12:[address] [facility] Basophils Absolute 0.08 0.00 - 0.10 10*3/uL LAB HEMATOLOGY METHOD 01/27/2025 12:[address] [facility] Immature Granulocytes Absolute 0.02 0.00 - 0.06 10*3/uL LAB HEMATOLOGY METHOD 01/27/2025 12:[address] [facility] Blood Venous blood specimen / Unknown Venipuncture / Unknown 01/27/2025 12:04 PM EDT 01/27/2025 12:[address] [facility] - 01/27/2025 12:11 PM EDT Therapeutic decision making should be based on absolute values, rather than percentages. us Karolyn Toro MD LAB BLOOD ORDERABLES Final Res ult [facility] [address] [place] [address] * (ABNORMAL) BMP (01/27/2025 12:04 PM EDT) Glucose, Plasma 119(H) 74 - 99 mg/dL 01/27/2025 12:[address] [facility] BUN, Plasma 13 8 - 23 mg/dL 01/27/2025 12:[address] [facility] Creatinine, Plasma 0.94 0.60 - 1.10 mg/dL 01/27/2025 12:[address] [facility] BUN/Creatinine Ratio 14 01/27/2025 12:[address] [facility] Sodium, Plasma 132(L) 136 - 145 mmol/L 01/27/2025 12:[address] [facility] Potassium, Plasma 4.0 3.6 - 4.9 mmol/L 01/27/2025 12:[address] [facility] Chloride, Plasma 96(L) 97 - 107 mmol/L 01/27/2025 12:[address] [facility] CO2, Plasma 22 22 - 29 mmol/L 01/27/2025 12:[address] [facility] Anion Gap 14 6 - 16 mmol/L 01/27/2025 12:[address] [facility] Total Calcium, Plasma 9.9 8.9 - 10.2 mg/dL 01/27/2025 12:[address] [facility] eGFRcr 65.4 mL/min/1.7 3m*2 01/27/2025 12:[address] [facility] Comment:Reported eGFRcr in m L/min/1.73m2 is based the CKD-EPI 2020 equation that does not use a race coefficient. Blood Venous blood specimen / Unknown Venipuncture / Unknown 01/27/2025 12:04 PM EDT 01/27/2025 12:09 PM EDT us Karolyn Toro MD LAB BLOOD ORDERABLES Final Res ult [facility] [address] [place] [address] * IR Nephrostomy Tube Exchange (12/20/2024 9:20 AM EDT) Anatomical Region Laterality Modality Body, Kidney X-Ray Angiograph y Impressions 12/20/2024 10:50 AM EDT Successful bilateral percutaneous nephrostomy tube exchange using 10 Cymro locking pigtail drainage catheters. PLAN: Nephrostomy tube [...] for routine bilateral nephrostomy tube exchange. TECHNIQUE: Bed Maker: Sundeep Bowman MD Supervising attending: Liang Rodriguez [...] antisepsis, followed by sterile barrier draping A research aide film was performed to document the location [...] were no immediate complication. COMPARISON: None. FINDINGS: Gold Blower images and nephrostograms demonstrate bilateral percutaneous nephrostomy tubes in expected location. COMPLICATION: No. Procedure Note Liang Rodriguez MD - 12/20/2024 CLINICAL INDICATION: 69-year-old female who presents for routine bilateral nephrostomy tubeexchange. TECHNIQUE: Bed Maker: Sundeep Bowman MD Supervising attending: Liang Rodriguez [...] cutaneousantisepsis, followed by sterile barrier draping A research aide film was performed to document the location [...] there were no immediatecomplication. COMPARISON: None. FINDINGS: Gold Blower images and nephrostograms demonstrate bilateral percutaneousnephrostomy tubes [...] MD on 12/20/2024 10:50 AM Kristen Bryant MILLWRIGHT APPRENTICE IMG IR PROCEDURES Final Result * Hepatitis C Antibody - ED (07/22/2024 7:54 PM EST) Hepatitis C Antibody Negative Negative 07/22/2024 9:[address] [facility] Blood Venous blood specimen / Unknown Venipuncture / Unknown 07/22/2024 7:54 PM EST 07/22/2024 8:09 PM EST us Luz MCCABE LAB BLOOD ORDERABLES Missy sun Result [facility] [address] [place] [address] from Last 3 Months or Most Recently Relevant to Health Maintenance Insurance [employer] Advance Directives * Full Code (Latest [...] Patient has decision-making capacity? Yes Care Teams Perinatal Director Relationship Specialty Start Date End Date Luis Hatfield MD [address] [facility] [address] [place] [address] PCP - General 07/24/24
--- OUTSIDE RECORDS SUMMARY | 2025-01-30 09:29 | XMS_ITS | Encounter Summary ---
Author Organization [facility] Address [address] [id number] Care Team Providers Care Farm Manager Name Role Phone Luis Hatfield MD [...] AM EST Office Visit [facility] [address] [phone] Vicente Wells DO [address] [address] documented as of this encounter Visit Diagnoses Not on filedocumented in this encounter Care Teams Farm Manager Relationship Specialty Start Date End Date Luis Hatfield MD [address] [facility] [address] [place] [address] PCP - General Family Medicine 06/13/24 documented as of this encounter
--- OUTSIDE RECORDS SUMMARY | 2025-01-30 09:29 | XMS_ITS | Encounter Summary ---
Author Organization [facility] Address [address] [place] [address] Care Team Providers Care Aquatics Assistant Department Head Name Role Phone Luis Hatfield MD Primary Care Provider [phone] Encounter Details Date Type Department Care Team (Latest Contact Info) Description 01/27/2025 Travel Social History Tobacco Use Types Packs/Day [...] in the past 12 m [facility], were you homeless [...] drink first t kimberlyn in the morning (EYE-WAXER) to steady your nerves or to get rid of a hangover? 0 09/11/2024 CAGE Questionnaire Score 0 025 Utilities Answer Date Recorded In the past 12 months has th e Specle, gas, oil, or water company threatened to [...] No Risk Indicated 01/27/2025 12:11 PM EDT Delfin higginbotham, Amira K, RN * Question Answer Date of Assessment Author 1. Wish to be (Past 1 Month) No 01/27/2025 12:11 PM EDT Aubrey Jules RN 2. Non-Specific Active Suicidal Thoughts (Past 1 Month) No 01/27/2025 12:11 PM EDT Aubrey Jules RN 6. Suicidal Behavior (Lifetime) No 01/27/2025 12:11 PM EDT Aubrey Jules RN documented as of this encounter Plan of Treatment Upcoming Encounters Date Type Department Care Team (Late st Contact Info) Description 02/05/2025 4:30 PM EDT Office Visit [facility] Multidisciplinary Oncology Clinic [address] [place] [address] Ochoa Matias MD [address] [address] [place] [address] documented as of this encounter Visit Diagnoses [...] documented as of this encounter Care Teams Aquatics Assistant Department Head Relationship Specialty Start Date End Date Luis Hatfield MD [address] [address] PCP - General 07/24/24 documented as of this encounter
--- OUTSIDE RECORDS SUMMARY | 2025-01-30 09:29 | XMS_ITS ---
Author Organization [facility] Address [address] [place] [address] Care Team Providers Care Insert Operator Name Role Phone Luis Hatfield MD Primary Care Provider [phone] Active Problems Problem Noted Date Diagnosed Date [...]
--- OUTSIDE RECORDS SUMMARY | 2025-01-30 09:29 | XMS_ITS | Encounter Summary ---
Author Organization [facility] Address [address] [phone] Care Team Providers Care Video Production Specialist Name Role Phone Luis Hatfield MD Primary Care Provider [phone] Encounter Details Date Type Department Care Team (Late st Contact Info) Description 01/27/2025 Telephone [facility] [address] [place] [address] Ochoa Matias MD [address] [place] [address] Social History Tobacco Use Types Packs/Day Years [...] any time in the past 12 m [facility], were you homeless or living in [...] drink first t kimberlyn in the morning (EYE-FASHION DIRECTOR [employer]Y PLAN SALES) to steady your nerves or to get [...] encounter Miscellaneous Notes * Telephone Encounter - Monserrat Tay RN - 01/27/2025 9:39 AM EDT Called and spoke with patient who states that she is having no output from nephrostomy tube. Advised patient to go to ED for evaluation. * Telephone Encounter - Margareth Mackenzie - 01/27/2025 9:34 AM EDT Patient Phone Message Reason for Call: Ms. Pritchard is not having any output in the urostomy bag. When she feels pressure and the urge to urinate, she can go normally and nothing goes in to the bag. Best contact number and optimal time of day to reach caller: [phone] Note: Please do not reply to this message. Follow-up communication and further actions as a result of this message need to be communicated with the patient directly, if the patient is not active onMyChart. If the patient is active on MyChart, they will receive notification of the communication/outcome via [employer]. documented in this encounter Plan of Treatment Upcoming Encounters Date Type Department Care Team (Late st Contact Info) Description 02/05/2025 4:30 PM EDT Office Visit [facility] Multidisciplinary Oncology Clinic [address] [place] [address] Ochoa Matias MD [address] [facility] [address] [place] [phone] documented as of this encounter Visit Diagnoses [...] documented as of this encounter Care Teams Video Production Specialist Relationship Specialty Start Date End Date Luis Hatfield MD [address] [place] [address] PCP - General 07/24/24 documented as of this encounter
[2025-01-30 09:33] LABS: Hematocrit 33.2 % (37.0-47.0); Hemoglobin 11.7 g/dL (12.2-16.2); Immature Granulocytes % 0.7 %; Mean Corpuscular HGB Conc 35.2 g/dL (31.8-35.4); Mean Corpuscular Hemoglobin 30.7 pg (27.0-31.2); Mean Corpuscular Volume 87.1 fl (81-99); Nucleated Red Blood Cells % 0 %; Platelet Count 402 K/mm3 (142-424); Red Blood Count 3.81 M/mm3 (4.20-5.40); Red Cell Distribution Width-SD 55.8 fL; White Blood Count 9.6 K/mm3 (4.8-10.8)
[2025-01-30 09:47] LABS: Alanine Aminotransferase 10 U/L (12-78); Albumin Level 4.0 g/dl (3.5-5.0); Albumin/Globulin Ratio 1.4 (1.1-1.8); Alkaline Phosphatase 79 U/L (38-126); Anion Gap 13.6 mEq/L (5-15); Aspartate Amino Transferase 25 U/L (14-36); Bilirubin,Total 1.2 mg/dl (0.2-1.3); Blood Urea Nitrogen 14 mg/dl (7-17); Calcium 9.5 mg/dl (8.4-10.2); Carbon Dioxide 26 mmol/L (22.0-30.0); Chloride 97 mmol/L (98-107); Creatinine,Serum 1.00 mg/dl (0.52-1.04); Estimated Glomerular Filt Rate 55 ml/min (>60); GFR (African American) 66 ML/MIN (>60); Globulin 2.9 g/dL (1.3-3.2); Glucose 103 mg/dl (74-100); Potassium 3.6 mmoL/L (3.5-5.1); Sodium 133 mmol/L (136-145); Total Protein,Serum 6.9 g/dl (6.3-8.2)
[2025-01-30] MEDS: 0.9 % SODIUM CHLORIDE 50 ML 100 ML IV (09:52)
[2025-01-30] MEDS: PROCHLORPERAZINE 10MG TABLET 10 MG PO (09:53)
[2025-01-30 10:18] LABS: Thyroid Stimulating Hormone 1.66 uIU/mL (0.465-4.68)
[2025-01-30 10:25] VITALS: BP 98/47; PULSE 97; RESP 17; O2SAT 93
[2025-01-30] MEDS: SODIUM CHLORIDE 0.9% IV (10:25)
[2025-01-30] MEDS: ENFORTUMAB VEDOTIN EJFV IV (10:25)
[2025-01-30 10:40] VITALS: BP 110/47; PULSE 95; RESP 16
[2025-01-30 10:55] VITALS: BP 98/40; PULSE 93; RESP 16
== END 2025-01-30 11:05 | disposition home or self-care (01) ==
LOC: INF 09:09
PROVIDERS: PCP Family Medicine; Visit Provider Internal Medicine Medical Oncology
DX: C67.9 Malignant neoplasm of bladder, unspecified (principal); Z51.11 Encounter for antineoplastic chemotherapy
CPT/HCPCS: 80053; 84443; 85025; 96413; J9177; Q0164

== ENCOUNTER 2025-02-13 10:59 | Outpatient (CLI) | payer MEDICARE, SELFPAY ==
--- OUTSIDE RECORDS SUMMARY | 2024-09-17 06:15 | XMS_ITS ---
Author Organization [facility] Address [address] [facility] [address] [facility] [address] [place] [id number] Care Team Providers Care Receiver Bulk System Name Role Phone Nikki Sevilla Primary Care Provider Luis Hatfield [phone] REASON FOR VISIT 6 week f/u Encounters Encounter Location Date Provider Diagnosis [facility] [address] [place], [place] [phone] 09/17/2024 Luis Hatfield Plan Of Treatment Next Appt Details Provider Name:Luis Hernández ry, 08/04/2025 09:30:00 AM, [address], [address], [place], [place], [phone], Progress Notes * Leandro PRITCHARDOB:[birth year] (69 yo F)Acc No.[id number]:09/17/2024 Progress Notes Patient: Sergei TREJOestine Provider: Clay Hatfield M.D. :1955 A ge:69 Y S ex:Female Date:09/17/2024 Address:[address] [place] [address] [place] [id number] Pcp:Nikki Sevilla Subjective: * Chief Complaints: * 1 . 6 week f/u. * Medical History: Objective: * Vitals: Assessment: Plan: * Treatment: * Images: Billing Information: * Visit Code: * Procedure Codes: * Electronic signature of Vicky Hatfield MD on 02/13/2025 at 11:12 AM EDT Sign off status: Pending * Provider: Clay Hatfield M.D. Date: 0 09/17/2024 Generated for Gonzales jaquez/Joyce/Gonzalez on: 0 02/13/2025 11:12 AM EDT
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
--- OUTSIDE RECORDS SUMMARY | 2024-12-20 07:18 | XMS_ITS | Encounter Summary ---
Author Organization [facility] Address [address] [place] [address] Care Team Providers Care Internet Systems Administrator Name Role Phone Luis Hatfield MD Primary Care Provider [phone] Reason for Referral * Imaging (Routine) - Closed Specialty Diagnoses / Procedures Referred By Stephen parks Referred To Contact Radiology Diagnoses Malignant neoplasm of urinary bladder, unspecified site (CMS/HCC) Procedures IR Nephrostomy Tube Exchange Kristen Bryant APRN [address] [place] [address] Phone: tel: fax: Referral ID Status Reason Start Date Expiration Date Visits Re quested Visits Authorized [id number] Closed 10/09/2024 04/10/2026 1 1 Reason for Visit * Imaging (Routine) - Closed Specialty Diagnoses / Procedures Referred By Stephen parks Referred To Contact Radiology Diagnoses Malignant neoplasm of urinary bladder, unspecified site (CMS/HCC) Procedures IR Nephrostomy Tube Exchange Kristen Bryant APRN [address] [place] [address] Phone: tel: fax: Referral ID Status Reason Start Date Expiration Date Visits Re quested Visits Authorized [id number] Closed 10/09/2024 04/10/2026 1 1 Encounter Details Date Type Department Care Team (Latest Contact Info) Description 12/20/2024 7:18 AM EDT - 12/20/2024 11:59 PM EDT Hospital Encounter [facility] Interventional Radiology [address] [place] [address] AidaMihirLiliana Malignant neoplasm of urinary bladder, unspecified site (CMS/HCC) Discharge Disposition: Home or Self Care Social History Tobacco Use Types Packs/Day Years Used Date Smoking Tobacco: Former Cigarettes 0.1 51.7 S tarted: 1974 Smokeless Tobacco: Never Alcohol [...] any time in the past 12 [facility], were you homeless or living in a halfway (including now)? No 09/23/2024 CAGE ASSESSMENT Answer [...] drink first t kimberlyn in the morning (EYE-CHIEF LIBRARIAN BRANCH) to steady your nerves or to get rid of a hangover? 0 09/11/2024 CAGE Questionnaire Score 0 025 Utilities Answer Date Recorded In the past 12 months has th [employer], gas, oil, or water company threatened to [...] call: Vascular & Interventional Radiology Clinic at [phone] Monday - Monday 8:00 AM to 4:30 PM After hours, weekends, and holidays please call [phone] and ask for the Interventional Radiology provider/Resident on-call For Emergencies please go to the nearest Emergency Room or dial 911. Intervention Radiology Appointments: If you need to reschedule a procedure, please call our Schedulers at [phone], option 4. If you need to schedule or reschedule a clinic appointment, please call [phone]. [facility] Vascular and Interventional Radiology Clinic [address], [address] [place] [address] documented in this encounter Medications at Time [...] from the original note were not included. 13035 Percutaneous Nephrostomy You had a procedure called [...] and warm water or an alcohol-based hand septic tank cleaner ?? Disposable medical gloves - they [...] 4. Wipe the skin gently in a [place]. Move away from the drain tube in [...] hands with soap & water or hand septic tank cleaner and put on a new pair [...] hands with soap and water or hand septic tank cleaner. They can also put on a [...] syringe to the needleless port with a ubdh-wkm-plkij motion. ? Flush the tube: Push on [...] your tube from getting blocked. * [facility] Liliana Parra - 12/20/2024 9:46 AM EDT Images from the original note were not included. [id number] Discharge Instructions for Percutaneous Nephrostomy You had [...] symptoms Last Reviewed Date: 2022 00:00:00 ?? [id number] The [employer]. All rights reserved. This information is not [...] been discussed with the patient and/or their medical representative. All questions answered and they agree [...] had enough tubes placed 09/12/2024 with 8 Afghan bilaterally. Shedoes not report any symptoms or [...] 93%. Results Review {Vanishing Link Review Results :[id number] I have reviewed the latest lab and [...] Upcoming Encounters Date Type Department Care Team (Latest Contact Info) Description 02/17/2025 3:00 PM EDT Hospital Encounter [facility] A OPERATING ROOM [address] [place] [address] Ochoa Matias MD [address] [address] 02/17/2025 3:00 PM EDT - 02/17/2025 4:30 PM EDT Surgery [facility] OPERATING ROOM [address] [place] [address] Ochoa Matias MD [address] [address] INSERTION OR REPLACEMENT, NEPHROSTOMY TUBE [[id number] (CPT )] 03/07/2025 10:30 AM EDT Appointment [facility] Interventional Radiology [address] [place] [address] Scheduled Procedures Name Priority Associated Diagnoses Date/Ti me INSERTION OR REPLACEMENT, NEPHROSTOMY TUBE Other hydronephrosis 02/17/2025 3:00 PM EDT documented as of this encounter Procedures Procedure [...] bilateral percutaneous nephrostomy tube exchange using 10 Afghan locking pigtail drainage catheters. PLAN: Nephrostomy tube [...] for routine bilateral nephrostomy tube exchange. TECHNIQUE: Casting Coordinator: Sundeep Bowman MD Supervising attending: Liang Rodriguez [...] antisepsis, followed by sterile barrier draping A facility coordinator film was performed to document the location [...] were no immediate complication. COMPARISON: None. FINDINGS: White Kid Buffer images and nephrostograms demonstrate bilateral percutaneous nephrostomy tubes in expected location. COMPLICATION: No. Procedure Note Liang Rodriguez MD - 12/20/2024 CLINICAL INDICATION: 69-year-old female who presents for routine bilateral nephrostomy tubeexchange. TECHNIQUE: Casting Coordinator: Sundeep Bowman MD Supervising attending: Liang Rodriguez [...] cutaneousantisepsis, followed by sterile barrier draping A facility coordinator film was performed to document the location [...] there were no immediatecomplication. COMPARISON: None. FINDINGS: White Kid Buffer images and nephrostograms demonstrate bilateral percutaneousnephrostomy tubes [...] Rodriguez MD on 12/20/2024 10:50 AM Kristen Bryant WEED SCIENCE RESEARCH TECHNICIAN IMG IR PROCEDURES Final Result documented in this encounter Visit Diagnoses Diagnosis Malignant neoplasm of urinary bladder, unspecified site (CMS/HCC) Other hydronephrosis documented in this encounter Administered Medications Inactive [...] documented as of this encounter Care Teams Internet Systems Administrator Relationship Specialty Start Date End Date Luis Hatfield MD [address] [place] [address] PCP - General 07/24/24 documented as of this encounter
--- OUTSIDE RECORDS SUMMARY | 2024-12-26 10:30 | XMS_ITS | Encounter Summary ---
Author Organization [facility] Address [address] [place] [address] Care Team Providers Care Salesperson Jewelry Name Role Phone Luis Hatfield MD Primary Care Provider [phone] Reason for Visit * Reason Comments Seropositive rheumatoid arthritis 6 veronica h follow up Encounter Details Date Type Department Care Team (Latest Contact Info) Description 12/26/2024 10:30 AM EDT Office Visit [facility] RHEUMATOLOGY [address] [phone] Nguyen Romero APRN [address] [address] Seropositive rheumatoid arthritis (Primary Dx); Systemic lupus [...] DNA 13.0 (<4.0), Centromere and Chromatin normal, DIRECTOR TITLE and SCL 70 normal, Christine normal, SSA and SSB normal, total bilirubin 1.4, Glucose 117, CMP was ok otherwise, CCP negative, CRP Normal, RF 110 (<14.0 normal), ESR normal, TSH normal * Medications/treatments/interventions tried include: Tylenol, meloxicam, Advil, CBD oil, Tumeric, Aspirin, Plaquenil, she has seen podiatry (Miky Steele DPM), she has seen auto customize painter (Dr. Jed Trevino), Ketamine, gabapentin, She [...] lesion. She brought in medical records from [facility] for us to review. Subjective Review of [...] DNA 13.0 (<4.0), Centromere and Chromatin normal, DIRECTOR TITLE and SCL 70 normal, Christine normal, SSA and SSB normal, total bilirubin 1.4, Glucose 117, CMP was ok otherwise, CCP negative, CRP Normal, RF 110 (<14.0 normal), ESR normal, TSH normal * Medications/treatments/interventions tried include: Tylenol, meloxicam, Advil, CBD oil, Tumeric, Aspirin, Plaquenil, she has seen podiatry (Miky Steele DPM), she has seen auto customize painter (Dr. Jed Trevino), Ketamine, gabapentin, She [...] 06/28/2025) for Dr. Wells. Nguyen Romero APRN [facility] of [place] documented in this encounter Plan of Treatment Upcoming Encounters Date Type Department Care Team (Late st Contact Info) Description 07/09/2025 10:45 AM EST Office Visit [facility] RHEUMATOLOGY [address] [place] [phone] Vicente Wells DO [address] [phone] Scheduled Orders Name Type Priority Associated Diagnoses [...] Whole Blood (01/17/2025) Blood us Nguyen Romero CREDIT REVIEW MANAGER LAB BLOOD ORDERABLES F inal Result [facility] (AMBULATORY) [address] [place] [address], documented in this encounter Visit Diagnoses Diagnosis Seropositive rheumatoid arthritis- Primary Systemic lupus erythematosus, unspecified SLE type, unspecified organ involvement status High risk medication use Primary osteoarthritis involving multiple joints NSAID long-term use Encounter for long-term (current) use of non-steroidal anti-inflammatories documented in this encounter Care Teams Salesperson Jewelry Relationship Specialty Start Date End Date Luis Hatfield MD [address] [place] [address] PCP - General Family Medicine 06/13/24 documented as of this encounter
--- OUTSIDE RECORDS SUMMARY | 2025-01-27 12:05 | XMS_ITS | Encounter Summary ---
Author Organization Healthcare Address [address] [place] [address] Care Team Providers Care Hot Metal Crane Operator Name Role Phone Luis Hatfield MD Primary Care Provider [phone] Reason for Visit * Reason Comments ileostomy concern Encounter Details Date Type Department Care Team ([facility] Contact Info) Description 01/27/2025 12:05 PM EDT - 01/27/2025 7:02 PM EDT Emergency [facility] Emergency Department [address] [place] [address] Karolyn Toro MD [facility] [place] [address] Sheree Augustine MD [address] [place] [phone] UTI (urinary tract infection), bacterial (Primary Dx); Malfunction of nephrostomy tube ([facility]/HCC); Hydronephrosis, unspecified hydronephrosis type Discharge Disposition: Home [...] in the past [address] [facility], were you homeless or living in a [...] drink first t kimberlyn in the morning (EYE-OILER AND GREASER) to steady your nerves or to get [...] EDT You were seen and evaluated at [facility] Emergency Department. Urology saw you in the department and evaluated do. They were able to flush both nephrostomy tubes. Per their recommendations you should flush your nephrostomy tubes daily. If you have complications with flushing or ear tubes drainingyou may call the IR clinic at [phone] or be seen in the emergency department. [...] Reason for consult: b/l PCNTs not draining [facility] Urology Consult Note 01/27/25 Service Requesting [...] [facility] NECK SURGERY N/A Neck Surgery from [facility] [3] No family history on file. [4] [...] Start Date End Date Auth. Provider cefadroxil (Durrositaf) 500 MG capsule Take 1 capsule by mouth 2 times a day for 5 days. 10 capsule 01/27/2025 02/01/2025 Sheree Augustine MD Discharge Instructions You were seen and evaluated at [facility] Emergency Department. Urology saw you in the department and evaluated do. They were able to flush both nephrostomy tubes. Per their recommendations you should flush your nephrostomy tubes daily. If you have complications with flushing or ear tubes drainingyou may call the IR clinic at [phone] or be seen in the emergency department. [...] distress at the time of discharge. AVS (Malay Snapshot) - Printed 01/27/2025 Follow-Ups: Follow up [...] Procedure Laterality Date CHOLECYSTECTOMY N/A Cholecystectomy from [facility] NECK SURGERY N/A Neck Surgery from [facility] [3] No family history on file. [4] [...] and Vomiting Nidia Harrington MD Resident 01/28/25 [id number] Cosigned by Karolyn Toro MD at 01/28/2025 7:34 PM EDT Associated attestation - Karolyn Toro MD - 01/28/2025 7:34 PM EDT The patient was personally evaluated at bedside. Test results were reviewed and discussed with the patient. Case was discussed with the resident and I am in agreement with the assessment and plan * ED Triage Notes - Giana Maciel, RN - 01/27/2025 11:30 AM EDT Decreased output from ileostomy since 01/26. Hx bladder cancer last chemo on 01/23 documented in this encounter Plan of Treatment Upcoming Encounters Date Type Department Care Team (Latest Contact Info) Description 02/17/2025 3:00 PM EDT Hospital Encounter [facility] OPERATING ROOM [address] [place] [address] Ochoa Matias MD [address] [address] 02/17/2025 3:00 PM EDT - 02/17/2025 4:30 PM EDT Surgery [facility] OPERATING ROOM [address] [place] [address] Ochoa Matias MD [address] [address] INSERTION OR REPLACEMENT, NEPHROSTOMY TUBE [[id number] (CPT )] 03/07/2025 10:30 AM EDT Appointment [facility] Interventional Radiology [address] [place] [address] Scheduled Procedures Name Priority Associated Diagnoses Date/Ti [...] MD LAB URINE ORDERABLES Final Res ult [facility] [address] [place] [address] * Urine Culture (01/27/2025 3:37 PM EDT) Culture >=100,000 CFU/mL Mixed urogenital , fecal, or skin meg present. 01/29/2025 1:54 PM EDT [facility] Comment:This is a corrected result. Previous organism was Gram Negative Elliot on 01/28/2025 at 1539 EDT. Urine Urine specimen obtained by clean catch procedure / Unknown Non-blood Collection / Unknown 01/27/2025 3:37 PM EDT 01/27/2025 4:29 PM EDT us Karolyn Toro MD LAB MICROBIOLOGY - GENERAL ORD ERABLES Final Result Performing Organization Address [facility] Co de Phone Number [facility] [address] [place] [address] * Urinalysis Microscopic Examination (01/27/2025 3:37 PM EDT) Urine Urine specimen obtained by clean catch procedure / Unknown Non-blood Collection / Unknown 01/27/2025 3:37 PM EDT 01/27/2025 3:39 PM EDT us Karolyn Toro MD LAB URINE ORDERABLES Final Res ult Performing Organization Address [facility] de Phone Number [facility] [address] [place] [address] * Urine Stafford Panel (01/27/2025 3:37 PM EDT) Extra Sent for Culture 01/27/2025 6:01 PM EDT [facility] Urine Urine specimen obtained by clean catch procedure / Unknown Non-blood Collection / Unknown 01/27/2025 3:37 PM EDT 01/27/2025 4:29 PM EDT us Karolyn Toro MD LAB URINE ORDERABLES Final Res ult Performing Organization Address [facility] de Phone Number [facility] [address] [place] [address] * (ABNORMAL) Urinalysis with reflex microscopic (Culture NOT Included) (01/27/2025 3:37 PM EDT) Color, Urine Yellow LAB URINALYSIS - AUTOMATED METHOD 01/27/2025 4:47 PM EDT [facility] Clarity, Urine Cloudy LAB URINALYSIS - AUTOMATED METHOD 01/27/2025 4:47 PM EDT [facility] Spec [place], Urine >1.030(H) 1.005 - 1.030 LAB URINALYSIS - AUTOMATED METHOD 01/27/2025 4:47 PM EDT [facility] pH, Urine 6.5 5.0 - 8.0 LAB URINALYSIS - AUTOMATED METHOD 01/27/2025 4:47 PM EDT [facility] Protein, Urine 100(A) Negative mg/dL LAB URINALYSIS - AUTOMATED METHOD 01/27/2025 4:47 PM EDT [facility] Glucose, Urine Negative Negative mg/dL LAB URINALYSIS - AUTOMATED METHOD 01/27/2025 4:47 PM EDT [facility] Ketones, Urine Negative Negative mg/dL LAB URINALYSIS - AUTOMATED METHOD 01/27/2025 4:47 PM EDT [facility] Blood, Urine Moderate(A) Negative LAB URINALYSIS - AUTOMATED METHOD 01/27/2025 4:47 PM EDT [facility] Bilirubin, Urine Negative Negative LAB URINALYSIS - AUTOMATED METHOD 01/27/2025 4:47 PM EDT [facility] Urobilinogen, Urine 1.0 0.2 to 1.0 mg/dL LAB URINALYSIS - AUTOMATED METHOD 01/27/2025 4:47 PM EDT [facility] Leukocytes, Urine Large(A) Negative LAB URINALYSIS - AUTOMATED METHOD 01/27/2025 4:47 PM EDT [facility] Nitrite, Urine Positive(A) Negative LAB URINALYSIS - AUTOMATED METHOD 01/27/2025 4:47 PM EDT [facility] RBC, Urine 16 - 30(A) 0 to 3 /HPF LAB URINALYSIS - AUTOMATED METHOD 01/27/2025 4:47 PM EDT [facility] Comment:This result was prev iously suppressed from the chart. WBC, Urine >50(A) 0 to 5 /HPF LAB URINALYSIS - AUTOMATED METHOD 01/27/2025 4:47 PM EDT [facility] Comment:This result was prev iously suppressed from the chart. Squamous Epithelial Cells 0 - 2 0 to 5 /HPF LAB URINALYSIS - AUTOMATED METHOD 01/27/2025 4:47 PM EDT [facility] Comment:This result was prev iously suppressed from the chart. Hyaline Casts 11 - 20(A) 0 to 5 /LPF LAB URINALYSIS - AUTOMATED METHOD 01/27/2025 4:47 PM EDT [facility] Comment:This result was prev iously suppressed from the chart. Bacteria, Urine Present Negative LAB URINALYSIS - AUTOMATED METHOD 01/27/2025 4:47 PM EDT [facility] Comment:This result was prev iously suppressed from the chart. Urine Urine specimen obtained by clean catch procedure / Unknown Non-blood Collection / Unknown 01/27/2025 3:37 PM EDT 01/27/2025 3:39 PM EDT us Karolyn Toro MD LAB URINE ORDERABLES Final Res ult [facility] [address] [place] [address] * CT Abdomen Pelvis w IV Contrast [...] - 99 mg/dL 01/27/2025 12:32 PM EDT [facility] BUN, Plasma 13 8 - 23 mg/dL 01/27/2025 12:32 PM EDT [facility] Creatinine, Plasma 0.94 0.60 - 1.10 mg/dL 01/27/2025 12:32 PM EDT [facility] BUN/Creatinine Ratio 14 01/27/2025 12:32 PM EDT [facility] Sodium, Plasma 132(L) 136 - 145 mmol/L 01/27/2025 12:32 PM EDT [facility] Potassium, Plasma 4.0 3.6 - 4.9 mmol/L 01/27/2025 12:32 PM EDT [facility] Chloride, Plasma 96(L) 97 - 107 mmol/L 01/27/2025 12:32 PM EDT [facility] CO2, Plasma 22 22 - 29 mmol/L 01/27/2025 12:32 PM EDT [facility] Anion Gap 14 6 - 16 mmol/L 01/27/2025 12:32 PM EDT [facility] Total Calcium, Plasma 9.9 8.9 - 10.2 mg/dL 01/27/2025 12:32 PM EDT [facility] eGFRcr 65.4 mL/min/1.7 3m*2 01/27/2025 12:32 PM EDT [facility] Comment:Reported eGFRcr in m L/min/1.73m2 is based the CKD-EPI 2020 equation that does not use a race coefficient. Blood Venous blood specimen / Unknown Venipuncture / Unknown 01/27/2025 12:04 PM EDT 01/27/2025 12:09 PM EDT us Karolyn Toro MD LAB BLOOD ORDERABLES Final Res ult [facility] [address] [place] [address] * (ABNORMAL) CBC w/diff (01/27/2025 12:04 PM EDT) WBC Count 7.48 3.70 - 10.30 10*3/uL LAB HEMATOLOGY METHOD 01/27/2025 12:11 PM EDT [facility] RBC Count 4.17 3.90 - 5.20 10*6/uL LAB HEMATOLOGY METHOD 01/27/2025 12:11 PM EDT [facility] HGB 12.7 11.2 - 15.7 g/dL LAB HEMATOLOGY METHOD 01/27/2025 12:11 PM EDT [facility] HCT 36.1 34.0 - 45.0 % LAB HEMATOLOGY METHOD 01/27/2025 12:11 PM EDT [facility] Platelet Count 439(H) 155 - 369 10*3/uL LAB HEMATOLOGY METHOD 01/27/2025 12:11 PM EDT [facility] MCV 87 79 - 98 fL LAB HEMATOLOGY METHOD 01/27/2025 12:11 PM EDT [facility] MCH 30.5 26.0 - 32.0 pg LAB HEMATOLOGY METHOD 01/27/2025 12:11 PM EDT [facility] MCHC 35.2 30.7 - 35.5 g/dL LAB HEMATOLOGY METHOD 01/27/2025 12:11 PM EDT [facility] RDW 17.8(H) 11.5 - 14.5 % LAB HEMATOLOGY METHOD 01/27/2025 12:11 PM EDT [facility] MPV 8.1(L) 8.8 - 12.5 fL LAB HEMATOLOGY METHOD 01/27/2025 12:11 PM EDT [facility] nRBC 0.0 <=0.0 per 100 WBCs LAB HEMATOLOGY METHOD 01/27/2025 12:11 PM EDT [facility] Differential Type Automated LAB HEMATOLOGY METHOD 01/27/2025 12:11 PM EDT [facility] Neutrophils % 67 % LAB HEMATOLOGY METHOD 01/27/2025 12:11 PM EDT [facility] Lymphocytes % 18 % LAB HEMATOLOGY METHOD 01/27/2025 12:11 PM EDT [facility] Monocytes % 13 % LAB HEMATOLOGY METHOD 01/27/2025 12:11 PM EDT [facility] Eosinophils % 1 % LAB HEMATOLOGY METHOD 01/27/2025 12:11 PM EDT [facility] Basophils % 1 % LAB HEMATOLOGY METHOD 01/27/2025 12:11 PM EDT [facility] Immature Granulocytes % 0 % LAB HEMATOLOGY METHOD 01/27/2025 12:11 PM EDT [facility] Neutrophils Absolute 5.02 1.60 - 6.10 10*3/uL LAB HEMATOLOGY METHOD 01/27/2025 12:11 PM EDT [facility] Lymphocytes Absolute 1.32 1.20 - 3.90 10*3/uL LAB HEMATOLOGY METHOD 01/27/2025 12:11 PM EDT [facility] Monocytes Absolute 0.95(H) 0.30 - 0.90 10*3/uL LAB HEMATOLOGY METHOD 01/27/2025 12:11 PM EDT [facility] Eosinophils Absolute 0.09 0.00 - 0.50 10*3/uL LAB HEMATOLOGY METHOD 01/27/2025 12:11 PM EDT [facility] Basophils Absolute 0.08 0.00 - 0.10 10*3/uL LAB HEMATOLOGY METHOD 01/27/2025 12:11 PM EDT [facility] Immature Granulocytes Absolute 0.02 0.00 - 0.06 10*3/uL LAB HEMATOLOGY METHOD 01/27/2025 12:11 PM EDT [facility] Blood Venous blood specimen / Unknown Venipuncture / Unknown 01/27/2025 12:04 PM EDT 01/27/2025 12:09 PM EDT Narrative [facility] - 01/27/2025 12:11 PM EDT Therapeutic decision making should be based on absolute values, rather than percentages. us Karolyn Toro MD LAB BLOOD ORDERABLES Final Res ult [facility] [address] [place] [address] documented in this encounter Visit Diagnoses Diagnosis UTI (urinary tract infection), bacterial- Primary Malfunction of nephrostomy tube (CMS/HCC) Hydronephrosis, unspecified hydronephrosis type Other hydronephrosis documented in this encounter Administered [...] documented as of this encounter Care Teams Hot Metal Crane Operator Relationship Specialty Start Date End Date Luis Hatfield MD [address] [facility] [address] [place] [address] PCP - General 07/24/24 documented as of this encounter
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
--- OUTSIDE RECORDS SUMMARY | 2025-02-05 11:45 | XMS_ITS | Encounter Summary ---
Author Organization Healthcare Address [address] [place] [address] Care Team Providers Care Valve Technician Name Role Phone Luis Hatfield MD Primary Care Provider [phone] Reason for Visit * Reason Comments Follow-up Malignant neoplasm o f urinary bladder, unspecified site Encounter Details Date Type Department Care Team (Latest Contact Info) Description 02/05/2025 11:45 AM EDT Office Visit [facility] Multidisciplinary Oncology Clinic [address] [place] [address] Ohcoa Matias MD [address] [place] [address] Malignant neoplasm of urinary bladder, unspecified site [...] time in the past 12 m [facility], were you homeless or living in a correction (including now)? No 09/23/2024 CAGE ASSESSMENT Answer [...] drink first t kimberlyn in the morning (EYE-ASSISTED LIVING ASSOCIATE) to steady your nerves or to [...] in the operating room. Ochoa Matias MD Drawing Supervisor Department of Urology History of Present Illness: Yaima Pritchard is a 69 y.o. female from [facility] [address] who returns in follow-up for bladder cancer. The patient was transferred to the emergency department from [facility] on 07/22/2024 with weakness short of [...] been voiding well. Follows closely with the process development manager. Patient has history lupus on hydroxychloroquine with her primary symptom being arthralgias. Baseline serum creatinine1.4 with GFR 40. She has seen a medical oncologist closer to home near [place], however, she has had issues with her [...] Take 1 tablet by mouth daily. HYDROcodone-acetaminophen ([place]) 5-325 MG tablet Take 1-2 tablets by [...] the assessment and plan. Surgical Pathology Exam: [id number] Order: [id number] Collected 07/23/2024 13:18 Status: Final result Visible [...] Hospital Encounter [facility] A OPERATING ROOM [address] [place] [address] Ochoa Matias MD [address] [address] 02/17/2025 3:00 PM EDT - 02/17/2025 4:30 PM EDT Surgery [facility] OPERATING ROOM [address] [place] [address] Ochoa Matias MD [address] [address] INSERTION OR REPLACEMENT, NEPHROSTOMY TUBE [[id number] (CPT )] 03/07/2025 10:30 AM EDT Appointment [facility] Interventional Radiology [address] [place] [address] Scheduled Procedures Name Priority Associated Diagnoses Date/Ti me INSERTION OR REPLACEMENT, NEPHROSTOMY TUBE Other hydronephrosis 02/17/2025 3:00 PM EDT documented as of this encounter Visit Diagnoses Diagnosis Malignant neoplasm of urinary bladder, unspecified site (CMS/HCC)- Primary Other hydronephrosis documented in this encounter Additional Health Concerns Assessment Noted Time PHQ-9 Depression Total Score: 0 02/06/20 25 11:38 AM EDT A fall risk assessment has been complete d for the patient 02/05/2025 11:38 AM EDT A Body Mass Index follow-up plan has been documented for the patient 02/05/2025 12:06 PM EDT documented as of this encounter Care Teams Valve Technician Relationship Specialty Start Date End Date Luis Hatfield MD [id number] [place] [address] PCP - General 07/24/24 documented as of this encounter
[2025-02-13 11:06] VITALS: BMI 25.6
--- OUTSIDE RECORDS SUMMARY | 2025-02-13 11:06 | XMS_ITS | Encounter Summary ---
Author Organization Healthcare Address [address] [place] [address] Care Team Providers Care Treasurer Savings Bank Name Role Phone Luis Hatfield MD Primary Care Provider [phone] Encounter Details Date Type Department Care Team (Late st Contact Info) Description 02/11/2025 Telephone [facility] [address] [place] [address] Ochoa Matias MD [address] [place] [address] Social History Tobacco Use Types Packs/Day Years [...] drink first t kimberlyn in the morning (EYE-TIRE CURER) to steady your nerves or to get [...] encounter Miscellaneous Notes * Telephone Encounter - Esther Oconnell - 02/11/2025 11:26 AM EDT Left message with patient to return call on direct line to schedule surgery documented in this encounter Plan of Treatment Upcoming Encounters Date Type Department Care Team (Latest Contact Info) Description 02/17/2025 3:00 PM EDT Hospital Encounter [facility] OPERATING ROOM [address] [place] [address] Ochoa Matias MD [address] [address] 02/17/2025 3:00 PM EDT - 02/17/2025 4:30 PM EDT Surgery [facility] OPERATING ROOM [address] [place] [address] Ochoa Matias MD [address] [address] INSERTION OR REPLACEMENT, NEPHROSTOMY TUBE [[id number] (CPT )] 03/07/2025 10:30 AM EDT Appointment [facility] Interventional Radiology [address] [place] [address] Scheduled Procedures Name Priority Associated Diagnoses Date/Ti me INSERTION OR REPLACEMENT, NEPHROSTOMY TUBE Other hydronephrosis 02/17/2025 3:00 PM EDT documented as of this encounter Goals Goal Patient Goal Type Associated Problems Recent Progress Patient-Stated? Author Autogenerat ed Goal Care Plan Autogenerated Problem No Esther Oconnell documented as of this encounter Visit Diagnoses Not on filedocumented in this encounter Additional Health Concerns Active Problems Noted Date Diagnosed Date Autogenerated Problem 02/11/2025 Assessment Noted Time PHQ-9 Depression Total Score: 0 02/06/20 11:38 AM EDT A fall risk assessment has been complete d for the patient 02/05/2025 11:38 AM EDT A Body Mass Index follow-up plan has been documented for the patient 02/05/2025 12:06 PM EDT documented as of this encounter Care Teams Treasurer Savings Bank Relationship Specialty Start Date End Date Luis Hatfield MD [address] [place] [address] PCP - General 07/24/24 documented as of this encounter
--- OUTSIDE RECORDS SUMMARY | 2025-02-13 11:06 | XMS_ITS | Encounter Summary ---
Author Organization [facility] Address [address] [id number] Care Team Providers Care Heddle Machine Operator Name Role Phone Luis Hatfield MD Primary Care Provider [phone] Reason for Visit * Reason Onset Date Comments [facility] Nurse Liaison call 02/06/2025 Encounter Details Date Type Department Care Team ([facility] st Contact Info) Description 02/06/2025 Telephone [facility] Multidisciplinary Oncology Clinic [address] [place] [address] [place] [address] [facility] Nurse Liaison call Social History Tobacco Use Types Packs/Day Years [...] in the past [address] [facility], were you homeless or living [...] drink first t kimberlyn in the morning (EYE-CLINICAL NURSE) to steady your nerves or to get rid of a hangover? 0 09/11/2024 CAGE Questionnaire Score 0 025 Utilities Answer Date Recorded In the past 12 months has th e [employer], gas, oil, or water company threatened to [...] encounter Miscellaneous Notes * Telephone Encounter - Sridevi Ellis - 02/06/2025 11:39 AM EDT Patient Name: Yaima Pritchard : 1955 Date: 02/06/25 [place] [facility] [place]: Dr. Magdiel Henderson Affiliate Site: [facility] Services Provided: Pre/Post Appointment Phone Call Educated On: [facility] Nurse Liaison/Psych Oncology Services Patient was referred [place] [facility] [place] local medical oncologist for a urology follow up. [facility] Nurse Liaison contacted the patient for a pre and post appointment phone call. Explained liaison services aswell as other resources at [facility] including Psych Oncology services. Patient well established with Dr. Matias and aware of resources. Patient has clinic number and was given liaison contact information and encouraged to call with any questions, needs or concerns. Sridevi Ellis RN [facility] Lia[place] documented in this encounter Plan of Treatment Upcoming Encounters Date Type Department Care Team (Latest Contact Info) Description 02/17/2025 3:00 PM EDT Hospital Encounter [facility] OPERATING ROOM [address] [place] [address] Ochoa Matias MD [address] [address] 02/17/2025 3:00 PM EDT - 02/17/2025 4:30 PM EDT Surgery [facility] OPERATING ROOM [address] [place] [address] Ochoa Matias MD [address] [address] INSERTION OR REPLACEMENT, NEPHROSTOMY TUBE [[id number] (CPT )] 03/07/2025 10:30 AM EDT Appointment [facility] Interventional Radiology [address] [place] [address] Scheduled Procedures Name Priority Associated Diagnoses Date/Ti [...] documented as of this encounter Care Teams Heddle Machine Operator Relationship Specialty Start Date End Date Luis Hatfield MD [address] [place] [address] PCP - General 07/24/24 documented as of this encounter
--- OUTSIDE RECORDS SUMMARY | 2025-02-13 11:06 | XMS_ITS | Clinical Summary ---
Author Organization [facility] Address [address] [place] [address] Care Team Providers Care Population Geneticist Name Role Phone Luis Hatfield MD Primary Care Provider [phone] Allergies Active Allergy Reactions Criticality Noted Date [...] DNA 13.0 (<4.0), Centromere and Chromatin normal, IRRIGATION FLUME LAYER and SCL 70 normal, Christine normal, SSA and SSB normal, total bilirubin 1.4, Glucose 117, CMP was ok otherwise, CCP negative, CRP Normal, RF 110 (<14.0 normal), ESR normal, TSH normal * Medications/treatments/interventions tried include: Tylenol, meloxicam, Advil, CBD oil, Tumeric, Aspirin, Plaquenil, she has seen podiatry (Miky Steele DPM), she has seen sandblaster paint sprayer (Dr. Jed Trevino), Ketamine, gabapentin, She has [...] DNA 13.0 (<4.0), Centromere and Chromatin normal, IRRIGATION FLUME LAYER and SCL 70 normal, Christine normal, SSA and SSB normal, total bilirubin 1.4, Glucose 117, CMP was ok otherwise, CCP negative, CRP Normal, RF 110 (<14.0 normal), ESR normal, TSH normal * Medications/treatments/interventions tried include: Tylenol, meloxicam, Advil, CBD oil, Tumeric, Aspirin, Plaquenil, she has seen podiatry (Miky Steele DPM), she has seen sandblaster paint sprayer (Dr. Jed Trevino), Ketamine, gabapentin, She has [...] DNA 13.0 (<4.0), Centromere and Chromatin normal, IRRIGATION FLUME LAYER and SCL 70 normal, Christine normal, SSA and SSB normal, total bilirubin 1.4, Glucose 117, CMP was ok otherwise, CCP negative, CRP Normal, RF 110 (<14.0 normal), ESR normal, TSH normal * Medications/treatments/interventions tried include: Tylenol, meloxicam, Advil, CBD oil, Tumeric, Aspirin, Plaquenil, she has seen podiatry (Miky Steele DPM), she has seen sandblaster paint sprayer (Dr. Jed Trevino), Ketamine, gabapentin, She has had back injections 1. Continue/refill hydroxychloroquine 2. Check labs 3. Continue/refill meloxicam PRN 4. We gave her a handout on rheumatoid arthritis to take home and review 5. Follow up in 4-6 months Resolved Problems Problem Noted Date Diagnosed Date Resolved Date Rheumatoid arthritis 12/25/2023 025 Encounters Date Type Department Care Team Description 01/28/2025 Results Follow-Up [facility] RHEUMATOLOG[facility] [address] [place] [phone] Nguyen Romero APRN 12/26/2024 10:30 AM EDT Office Visit [facility] RHEUM[facility] [address] [place] [phone] Nguyen Romero APRN Seropositive rheumatoid arthritis (Primary Dx); Systemic lupus erythematosus, unspecified SLE type, unspecified organ involvement status; High risk medication use; Primary osteoarthritis involving multiple joints; NSAID long-term use 12/26/2024 Results Follow-Up [facility] RHEUMAT[facility] [address] [place] [phone] Vicente Wells, 12/26/2024 Results Follow-Up [facility] RHEUMATOLOGY [address] [phone] Vicente Wells, 12/26/2024 Travel from Last 3 [...] Visit [facility] [address] [address] Vicente Wells, DO [address] [address] Health Maintenance Due Date Last Done Comments [...] organ involvement status SCANNED - LABS 12/12/2024 from Last 3 Months Results * LABS SCANNED (01/17/2025) Only the most recent of6 resultswithin the time period is included. Nguyen Romero APRN LAB BLOOD ORDERABLES F inal Result * Hydroxychloroquine, Whole Blood (01/17/2025) Blood Nguyen Romero APRN LAB BLOOD ORDERABLES F inal Result [facility] (AMBULATORY) [address] [place] [address], [place] [phone] from Last 3 Months Insurance [employer] PPO Care Teams Population Geneticist Relationship Specialty Start Date End Date Luis Hatfield MD [address] [facility] [address] [place] [phone] PCP - General Family Medicine 06/13/24
--- OUTSIDE RECORDS SUMMARY | 2025-02-13 11:06 | XMS_ITS | Encounter Summary ---
Author Organization [facility] Address [address] [place] [address] Care Team Providers Care Mangle Roller Name Role Phone Luis Hatfield MD Primary Care Provider [phone] Encounter Details Date Type Department Care Team (Latest Contact Info) Description 02/05/2025 Travel Social History Tobacco Use Types Packs/Day [...] drink first t kimberlyn in the morning (EYE-LINING VAMPER) to steady your nerves or to get rid of a hangover? 0 09/11/2024 CAGE Questionnaire Score 0 025 Utilities Answer Date Recorded In the past 12 months has th e [employer], gas, oil, or water company threatened to [...] Not at all 02/05/2025 11 :38 AM SHIVANIT Zina Schultz Feeling bad about yourself - or that you are a failure or have let yourself or your family down Not at all 02/05/2025 11:38 AM SHIVANIT Mesfin Schultz Trouble concentrating on thi ngs, [...] way Not at all 02/05/2025 11:38 AM SHIVANIT Zina Schultz Patient Health Questionnaire -9 Score 0 02/05/2025 11:38 AM EDT Zina Schultz * If you checked off any problems on this questionnaire so far, Question Answer Date of Assessment Author How difficult have these problems made it for you to do your work, take care of things at home, or get along with other people? Not difficult at all 02/05/2025 11:38 AM Zina Pickard documented as of this encounter Plan of Treatment Upcoming Encounters Date Type Department Care Team (Latest Contact Info) Description 02/17/2025 3:00 PM EDT Hospital Encounter [facility] [address] [place] [phone] Ochoa Matias MD [phone] [place] [address] 02/17/2025 3:00 PM EDT - 02/17/2025 4:30 PM EDT Surgery [facility] [address] [place] [address] Ochoa Matias MD [address] [phone] INSERTION OR REPLACEMENT, NEPHROSTOMY TUBE [[id number] (CPT )] 03/07/2025 10:30 AM EDT Appointment [facility] Interventional Radiology [address] [place] [phone] Scheduled Procedures Name Priority Associated Diagnoses Date/Ti [...] documented as of this encounter Care Teams Mangle Roller Relationship Specialty Start Date End Date Luis Hatfield MD [address] [place] [id number] PCP - General 07/24/24 documented as of this encounter
--- OUTSIDE RECORDS SUMMARY | 2025-02-13 11:07 | XMS_ITS | Encounter Summary ---
Author Organization [facility] Address [address] [place] [id number] Care Team Providers Care Form Raiser Name Role Phone Luis Hatfield MD Primary Care Provider [phone] Encounter Details Date Type Department Care Team ([facility] Contact Info) Description 07/12/2024 Telephone [facility] RHEUM[facility]OLOG[facility] [address] [address] Santiago Anders MD [address] [phone] Social History Tobacco Use Types Packs/Day Years [...] Office Visit [facility]HEUM[facility] [address] [address] Vicente Wells DO [address] [address] documented as of this encounter Visit Diagnoses Not on filedocumented in this encounter Care Teams Form Raiser Relationship Specialty Start Date End Date Luis Hatfield MD [address] [facility] [address] [place] [phone] PCP - General Family Medicine 06/13/24 documented as of this encounter
--- OUTSIDE RECORDS SUMMARY | 2025-02-13 11:07 | XMS_ITS | Encounter Summary ---
Author Organization [facility] Address [address] [id number] Care Team Providers Care Cardiopulmonary Supervisor Name Role Phone Luis Hatfield MD Primary Care Provider [phone] Encounter Details Date Type Department Care Team (Late st Contact Info) Description 08/19/2024 Lab Requisition [facility] [address] [place] [address] Ochoa Matias MD [address] [place] [address] Malignant neoplasm of bladder, unspecified (CMS/HCC) Social History Tobacco Use Types Packs/Day Years Used Date Smoking Tobacco: Every Day Cigarettes 0.5 25.7 Started: 1999 Smokeless Tobacco: Never Alcohol Use [...] living in a fci (including now)? No 07/24/2024 CAGE ASSESSMENT Answer [...] drink first t kimberlyn in the morning (EYE-CLEAN ROOM TECHNICIAN) to steady your nerves or to [...] Hospital Encounter [facility] [address] [place] [address] Ochoa Matias MD [address] [phone] 02/17/2025 3:00 PM EDT - 02/17/2025 4:30 PM EDT Surgery [facility] [address] [place] [address] Ochoa Matias MD [address] [phone] INSERTION OR REPLACEMENT, NEPHROSTOMY TUBE [[id number] (CPT )] 03/07/2025 10:30 AM EDT Appointment [facility] Interventional Radiology [address] [place] [phone] Scheduled Procedures Name Priority Associated Diagnoses Date/Ti [...] (07/23/2024 1:18 PM EST) Test name Selwyn Gelelr 09/05/2024 7:35 AM EDT [facility] Comment:[id number], A3 Test Result see scan 09/05/2024 7:35 AM EDT [facility] See Scanned Result 09/05/2024 7:35 AM EDT [facility] Tissue 07/23/2024 1:18 PM EST 08/19/2024 1:48 PM EDT Ochoa Matias MD LAB REF LAB BLOOD AND FLUID ORD Final Result Performing Organization Address [facility] Co de Phone Number [facility] [address] [phone] * - AP Miscellaneous Test (07/23/2024 1:18 PM EST) Test name Viviane Keith 09/09/2024 8:04 AM EDT [facility] Comment:[id number], A3 Test Result see scan 09/09/2024 8:04 AM EDT [facility] See Scanned Result 09/09/2024 8:04 AM EDT [facility] Tissue 07/23/2024 1:18 PM EST 08/19/2024 1:48 PM EDT Ochoa Matias MD LAB REF LAB BLOOD AND FLUID ORD Final Result Performing Organization Address [facility] de Phone Number [facility] [address] [place] [address] documented in this encounter Visit Diagnoses Diagnosis Malignant neoplasm of bladder, unspecified (CMS/HCC) Other hydronephrosis documented in this encounter Additional Health Concerns Assessment Noted Time A Body Mass Index follow-up plan has been documented for the patient 07/25/2024 1:21 PM EST documented as of this encounter Care Teams Cardiopulmonary Supervisor Relationship Specialty Start Date End Date Luis Hatfield MD [facility] [place] [address] [address] PCP - General 07/24/24 documented as of this encounter
--- OUTSIDE RECORDS SUMMARY | 2025-02-13 11:07 | XMS_ITS | Encounter Summary ---
Author Organization [facility] Address [address] [place] [id number] Care Team Providers Care Alumni Relations Coordinator Name Role Phone Luis Hatfield MD Primary Care Provider [phone] Encounter Details Date Type Department Care Team (Late Contact Info) Description 07/12/[address] [facility] RHEUMATOLOGY [address] [address] Vicente Wells DO [address] [phone] Social History Tobacco Use Types Packs/Day Years [...] Description 07/09/2025 10:45 AM EST Office Visit [facility] RHEUMATOLOGY [address] [address] Vicente Wells DO [address] [phone] documented as of this encounter Visit Diagnoses Not on filedocumented in this encounter Care Teams Alumni Relations Coordinator Relationship Specialty Start Date End Date Luis Hatfield MD [address] [facility] [address] [place] [address] PCP - General Family Medicine 06/13/24 documented as of this encounter
--- OUTSIDE RECORDS SUMMARY | 2025-02-13 11:07 | XMS_ITS | Encounter Summary ---
Author Organization [facility] Address [address] [place] [address] Care Team Providers Care Freelance Court Reporter Name Role Phone Luis Hatfield MD Primary Care Provider [phone] Encounter Details Date Type Department Care Team (Late Contact Info) Description 01/28/2025 Results Follow-Up [facility] [address] [address] Nguyen Romero APRN [address] [phone] Social History Tobacco Use Types Packs/Day Years [...] 10:45 AM EST Office Visit [facility] [address] [address] Vicente Wells DO [address] [phone] documented as of this encounter Visit Diagnoses Not on filedocumented in this encounter Care Teams Freelance Court Reporter Relationship Specialty Start Date End Date Luis Hatfield MD [address] [place] [address] [address] [facility] [address] [place] [address] PCP - General Family Medicine 06/13/24 documented as of this encounter
--- OUTSIDE RECORDS SUMMARY | 2025-02-13 11:08 | XMS_ITS | Encounter Summary ---
Author Organization [facility] Address [address] [place] [address] Care Team Providers Care Roof Cement And Paint Maker Name Role Phone Luis Hatfield MD Primary Care Provider [phone] Encounter Details Date Type Department Care Team [...] drink first t kimberlyn in the morning (EYE-SCANNING SUPERVISOR) to steady your nerves or to get rid of a hangover? 0 09/11/2024 CAGE Questionnaire Score 0 025 Utilities Answer Date Recorded In the past 12 months has th e [employer], gas, oil, or water company threatened to [...] EDT Hospital Encounter [facility] [address] [place] [phone] Ochoa Matias MD [phone] [place] [address] 02/17/2025 3:00 PM EDT - 02/17/2025 4:30 PM EDT Surgery [facility] [address] [place] [address] Ochoa Matias MD [address] [phone] [place] [address] INSERTION OR REPLACEMENT, NEPHROSTOMY TUBE [[id number] (CPT )] 03/07/2025 10:30 AM EDT Appointment [facility] Interventional Radiology [address] [place] [phone] Scheduled Procedures Name Priority Associated Diagnoses Date/Ti [...] documented as of this encounter Care Teams Roof Cement And Paint Maker Relationship Specialty Start Date End Date Luis Hatfield MD [address] [place] [id number] PCP - General 07/24/24 documented as of this encounter
--- OUTSIDE RECORDS SUMMARY | 2025-02-13 11:08 | XMS_ITS | Encounter Summary ---
Author Organization [facility] Address [address] [place] [address] Care Team Providers Care Parking Cashier Name Role Phone Luis Hatfield MD Primary Care Provider [phone] Encounter Details Date Type Department Care Team (Late Contact Info) Description 12/26/2024 Results Follow-Up [facility] RHEUM[facility] [address] [address] Vicente Wells DO [address] [address] Social History Tobacco Use Types Packs/Day Years [...] 07/09/2025 10:45 AM EST Office Visit [facility] RHE[facility] [address] [address] Vicente Wells DO [address] [phone] documented as of this encounter Visit Diagnoses Not on filedocumented in this encounter Care Teams Parking Cashier Relationship Specialty Start Date End Date Luis Hatfield MD [address] [place] [address] PCP - General Family Medicine 06/13/24 documented as of this encounter
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
--- OUTSIDE RECORDS SUMMARY | 2025-02-13 11:10 | XMS_ITS | Encounter Summary ---
Author Organization [facility] Address [address] [place] [address] Care Team Providers Care Line Tender Name Role Phone Luis Haftield MD Primary Care Provider [phone] Encounter Details Date Type Department Care Team (Late Contact Info) Description 12/26/2024 Results Follow-Up [facility] [address] [address] Vicente Wells DO [address] [address] Social History Tobacco Use Types Packs/Day Years [...] Description 07/09/2025 10:45 AM EST Office Visit [facility] [address] [address] Vicente Wells DO [address] [id number] documented as of this encounter Visit Diagnoses Not on filedocumented in this encounter Care Teams Line Tender Relationship Specialty Start Date End Date Luis Hatfield MD [address] [place] [address] PCP - General Family Medicine 06/13/24 documented as of this encounter
--- OUTSIDE RECORDS SUMMARY | 2025-02-13 11:10 | XMS_ITS | Encounter Summary ---
Author Organization [facility] Address [address] [place] [address] Care Team Providers Care Insurance Defense Paralegal Name Role Phone Luis Hatfield MD Primary Care Provider [phone] Encounter Details Date Type Department Care Team [...] drink first t kimberlyn in the morning (EYE-LAUNCHING PAD MECHANIC) to steady your nerves or to get rid of a hangover? 0 09/11/2024 CAGE Questionnaire Score 0 025 Utilities Answer Date Recorded In the past 12 months has th e Search[employer], gas, oil, or water company threatened to [...] Hospital Encounter [facility] [address] [place] [address] Ochoa Matias MD [address] [address] 02/17/2025 3:00 PM EDT - 02/17/2025 4:30 PM EDT Surgery [facility] [address] [place] [address] Ochoa Matias MD [address] [address] INSERTION OR REPLACEMENT, NEPHROSTOMY TUBE [[id number] (CPT )] 03/07/2025 10:30 AM EDT Appointment [facility] Inter[facility] Radiology [address] [place] [address] Scheduled Procedures Name Priority Associated Diagnoses Date/Ti [...] documented as of this encounter Care Teams Insurance Defense Paralegal Relationship Specialty Start Date End Date Luis Hatfield MD [address] [place] [id number] PCP - General 07/24/24 documented as of this encounter
--- OUTSIDE RECORDS SUMMARY | 2025-02-13 11:10 | XMS_ITS ---
Author Organization [facility] Address [address] [place] [address] Care Team Providers Care Publicist Name Role Phone Luis Hatfield MD Primary Care Provider [phone] Active Problems Problem Noted Date Diagnosed Date Tobacco use disorder 02/05/2025 Second hand smoke exposure 02/05/2025 Other hydronephrosis 02/05/2025 Urinary tract infection 09/21/2024 Bladder cancer 07/25/2024 [...]
--- OUTSIDE RECORDS SUMMARY | 2025-02-13 11:10 | XMS_ITS | Encounter Summary ---
Author Organization [facility] Address [address] [place] [id number] Care Team Providers Care Body Artist Name Role Phone Luis Hatfield MD Primary Care Provider [phone] Encounter Details Date Type Department Care Team [...] [facility] [address] [phone] Vicente Wells DO [address] [address] documented as of this encounter Visit Diagnoses Not on filedocumented in this encounter Care Teams Body Artist Relationship Specialty Start Date End Date Luis Hatfield MD [address] [facility] [address] [place] [address] PCP - General Family Medicine 06/13/24 documented as of this encounter
--- OUTSIDE RECORDS SUMMARY | 2025-02-13 11:10 | XMS_ITS | Encounter Summary ---
Author Organization [facility] Address [address] 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 Follow-up communication and further actions as a result of this message need to be communicated with the patient directly, if the patient is not active onMyChart. If the patient is active on MyChart, they will receive notification of the communication/outcome via [employer]. documented in this encounter Plan of Treatment Upcoming Encounters Date Type Department Care Team (Latest Contact Info) Description 02/17/2025 3:00 PM EDT Hospital Encounter [facility] [address] [place] [address] Ochoa Matias MD [address] [address] 02/17/2025 3:00 PM EDT - 02/17/2025 4:30 PM EDT Surgery [facility] [address] [place] [address] Ochoa Matias MD [address] [address] INSERTION OR REPLACEMENT, NEPHROSTOMY TUBE [[id number] (CPT )] 03/07/2025 10:30 AM EDT Appointment [facility] Inter[facility] Rad[facility] [address] [place] [address] Scheduled Procedures Name Priority Associated Diagnoses Date/Ti [...] as of this encounter Care Teams Business Development Officer Relationship Specialty Start Date End Date Luis Hatfield MD [address] [place] [address] PCP - General 07/24/24 documented as of this encounter
--- OUTSIDE RECORDS SUMMARY | 2025-02-13 11:11 | XMS_ITS | Clinical Summary ---
Author Organization [facility] Address [address] [place] [address] Care Team Providers Care Practice Management Consultant Name Role Phone Luis Hatfield MD Primary Care Provider [phone] Allergies Active Allergy Reactions Criticality Noted Date [...] tablet by mouth in the morning. Active hydroxychloroq uine (Plaquenil) 200 MG tablet Take 1 tablet by mouth in the morning and 1 tablet before bedtime. Active dexamethasone (Decadron) 4 MG tablet Take 2 tablets by mouth in the morning and 2 tablets in the evening. Take with meals. For 3 days , starting day after Chemo , for 6 cycles . . Active prochlorperazi ne (Compazine) 10 MG tablet Take 1 tablet [...] mouth 1 time each day. 4 Active HYDROcodone-ac etaminophen (Holland) 5-325 MG tablet Take 1-2 tablets by mouth every 8 hours as needed. Active ascorbic acid (vitamin C) 1000 MG tablet Take 1 tablet by mouth daily. Active cefadroxil (Duricef) 500 MG capsuleIndicat ions:UTI (urinary tract infection), bacterial Take 1 capsule by mouth 2 times a day for 5 days. 10 capsule 5 02/02/20 25 Additional Information Patient not taking.Reported on 02/05/2025 Active Problems Problem Noted Date Diagnosed Date [...] Encounters Date Type Department Care Team Description 02/11/2025 Telephone [facility] Urology [address] [place] [id number] Ochoa Matias MD 02/06/2025 Telephone [facility] Mult[facility] Oncology [facility] [address] [place] [address] Sridevi Ellis Nurse Liaison call 02/05/2025 11:45 AM EDT Office Visit [facility] [address] [place] [address] Ochoa Matias MD Malignant neoplasm of urinary bladder, unspecified site (CMS/HCC) (Primary Dx) 02/05/2025 Travel 01/27/2025 12:05 PM EDT - 01/27/2025 7:02 PM EDT Emergency [facility] [address] [place] [address] Karolyn Toro MD Owens, Susan E, MD UTI (urinary tract infection), bacterial (Primary Dx); Malfunction of nephrostomy tube (CMS/HCC); Hydronephrosis, unspecified hydronephrosis type Discharge Disposition: Home or Self Care 01/27/2025 Travel 01/27/2025 Telephone [facility] [address] [place] [address] Ochoa Matias MD 12/20/2024 7:18 AM EDT - 12/20/2024 11:59 PM EDT Hospital Encounter [facility] Interventional Radiology [address] [place] [address] Liliana Parra Malignant neoplasm of urinary bladder, unspecified site (CMS/HCC) Discharge Disposition: Home or Self Care 12/20/2024 Travel 12/02/2024 Telephone [facility] [address] [place] [address] Cecille Escobedo RN 11/26/2024 Telephone [facility] [address] [place] [address] Ochoa Matias MD [facility] from Last 3 Months Social History Tobacco Use Types Packs/Day Years Used Date Smoking Tobacco: Former Cigarettes 0.1 51.7 S tarted: 1974 Smokeless Tobacco: Never Tobacco [...] in the past 12 m [facility], were you homeless or living in [...] drink first t kimberlyn in the 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 0 09/11/2024 CAGE Questionnaire Score 0 025 Utilities Answer Date Recorded In the past 12 months has e electric, gas, oil, or water company [...] Mass Index 26.07 02/05/2025 11:35 AM EDT Plan of Treatment Upcoming Encounters Date Type Department Care Team (Latest Contact Info) Description 02/17/2025 3:00 PM EDT Hospital Encounter [facility] OPERATING [facility] [address] [place] [address] Ochoa Matias MD [address] [address] 02/17/2025 3:00 PM EDT - 02/17/2025 4:30 PM EDT Surgery [facility] [address] [place] [address] Ochoa Matias MD [address] [phone] INSERTION OR REPLACEMENT, NEPHROSTOMY TUBE [[id number] (CPT )] 03/07/2025 10:30 AM EDT Appointment [facility] Inter[facility] Radiology [address] [place] [id number] Scheduled Procedures Name Priority Associated Diagnoses Date/Ti me INSERTION OR REPLACEMENT, NEPHROSTOMY TUBE Other hydronephrosis 02/17/2025 3:00 PM EDT Health Maintenance Due Date Last Done Comments [facility]-Bone Density Scan 1954 [facility]-Medicare Annual Wellness (AWV) 1954 [facility]-/Child/Adol SDOH Screenings 1955 [id number] Vaccine (#1) 1959 [facility]-DTaP,Tdap,and Td Vaccines (1 - Tdap) 08/16/1996 08/15/1996 CT Colonography 1999 Colonoscopy 1999 FIT-DNA 1999 FIT 1999 FOBT 1999 Sigmoidoscopy 1999 [facility]-Colorectal Cancer Screening 1999 [facility]-Breast Cancer Screening 02/29/2004 [facility]-RSV Vaccine: 60+ Years or (1 - Risk 60-74 years 1-dose series) 2014 [facility]-Zoster Vaccines (2 of 2) 04/16/2020 02/20/2020 [facility]-Influenza Vaccine (#1) 2025 [facility]- SDOH Screenings 03/25/2025 [facility]-Adult SDOH Screenings 03/25/2025 09/23/2024 [facility]-Pneumococcal Vaccine: 50+ Years (2 of 2 - PCV) 04/10/2025 04/10/2024 [facility]-Depression Screening 02/05/2026 02/05/2025, 01/11 [facility]-Hepatitis C Screening Completed 07/22/2024 [facility]-Obesity Intervention Completed 025, 01/15/2025, 12/20/2024, Additional history exists HPV Vaccines Aged [...] on patient's age to complete this topic Goals Goal Patient Goal Type Associated Problems Recent Progress Patient-Stated? Author Autogenerat ed Goal Care Plan Autogenerated Problem No [employer] Implanted Type Area Health Director Device Identifier Shelf Expiration Date Model / Serial / Lot Stent Ureteral Double Pigtail Pos 6fr 26cm - S. - [id number] Implanted:Qty: 1 on 07/23/2024 by Ochoa Matias MD at [facility] Stent N/A: [id number] 03/11/2026 [id number] / . / [id number] Procedures Procedure Name Priority Date/Time Associated Diagnosis [...] ORDERABLES Final Res ult Performing Organization Address City/[facility] Co de Phone Number [facility] [address] [place] [address] * Urine Stafford Panel (01/27/2025 3:37 PM EDT) Extra Sent for Culture 01/27/2025 6:01 PM EDT [facility] Urine Urine specimen obtained by clean catch procedure / Unknown Non-blood Collection / Unknown 01/27/2025 3:37 PM EDT 01/27/2025 4:29 PM EDT us Karolyn Toro MD LAB URINE ORDERABLES Final Res ult Performing Organization Address [facility] de Phone Number [facility] [address] [place] [address] * Urinalysis Microscopic Examination (01/27/2025 3:37 PM EDT) Urine Urine specimen obtained by clean catch procedure / Unknown Non-blood Collection / Unknown 01/27/2025 3:37 PM EDT 01/27/2025 3:39 PM EDT us Karolyn Toro MD LAB URINE ORDERABLES Final Res ult Performing Organization Address [facility] Co de Phone Number [facility] [address] [place] [address] * (ABNORMAL) Urinalysis with reflex microscopic (Culture NOT Included) (01/27/2025 3:37 PM EDT) Color, Urine Yellow LAB URINALYSIS - AUTOMATED METHOD 01/27/2025 4:47 PM EDT [facility] Clarity, Urine Cloudy LAB URINALYSIS - AUTOMATED METHOD 01/27/2025 4:47 PM EDT [facility] Spec George, Urine >1.030(H) 1.005 - 1.030 LAB URINALYSIS - AUTOMATED METHOD 01/27/2025 4:47 PM EDT [facility] pH, Urine 6.5 5.0 - 8.0 LAB URINALYSIS - AUTOMATED METHOD 01/27/2025 4:47 PM EDT [facility] Protein, Urine 100(A) Negative mg/dL LAB URINALYSIS - AUTOMATED METHOD 01/27/2025 4:47 PM EDT [facility] Glucose, Urine Negative Negative mg/dL LAB URINALYSIS - AUTOMATED METHOD 01/27/2025 4:47 PM EDT [facility] Ketones, Urine Negative Negative mg/dL LAB URINALYSIS - AUTOMATED METHOD 01/27/2025 4:47 PM EDT [facility] Blood, Urine Moderate(A) Negative LAB URINALYSIS - AUTOMATED METHOD 01/27/2025 4:47 PM EDT [facility] Bilirubin, Urine Negative Negative LAB URINALYSIS - AUTOMATED METHOD 01/27/2025 4:47 PM EDT [facility] Urobilinogen, Urine 1.0 0.2 to 1.0 mg/dL LAB URINALYSIS - AUTOMATED METHOD 01/27/2025 4:47 PM EDT [facility] Leukocytes, Urine Large(A) Negative LAB URINALYSIS - AUTOMATED METHOD 01/27/2025 4:47 PM EDT [facility] Nitrite, Urine Positive(A) Negative LAB URINALYSIS - AUTOMATED METHOD 01/27/2025 4:47 PM EDT [facility] RBC, Urine 16 - 30(A) 0 to 3 /HPF LAB URINALYSIS - AUTOMATED METHOD 01/27/2025 4:47 PM EDT [facility] Comment:This result was prev iously suppressed from the chart. WBC, Urine >50(A) 0 to 5 /HPF LAB URINALYSIS - AUTOMATED METHOD 01/27/2025 4:47 PM EDT [facility] Comment:This result was prev iously suppressed from the chart. Squamous Epithelial Cells 0 - 2 0 to 5 /HPF LAB URINALYSIS - AUTOMATED METHOD 01/27/2025 4:47 PM EDT [facility] Comment:This result was prev iously suppressed from the chart. Hyaline Casts 11 - 20(A) 0 to 5 /LPF LAB URINALYSIS - AUTOMATED METHOD 01/27/2025 4:47 PM EDT [facility] Comment:This result was prev iously suppressed from the chart. Bacteria, Urine Present Negative LAB URINALYSIS - AUTOMATED METHOD 01/27/2025 4:47 PM EDT [facility] Comment:This result was prev iously suppressed from the chart. Urine Urine specimen obtained by clean catch procedure / Unknown Non-blood Collection / Unknown 01/27/2025 3:37 PM EDT 01/27/2025 3:39 PM EDT us Karolyn Toro MD LAB URINE ORDERABLES Final Res ult Performing Organization Address [facility]/ZIP Co de Phone Number [facility] [address] [place] [address] * Urine Culture (01/27/2025 3:37 PM EDT) Culture >=100,000 CFU/mL Mixed urogenital , fecal, or skin meg present. 01/29/2025 1:54 PM EDT [facility] Comment:This is a corrected result. Previous organism was Gram Negative Elliot on 01/28/2025 at 1539 EDT. Urine Urine specimen obtained by clean catch procedure / Unknown Non-blood Collection / Unknown 01/27/2025 3:37 PM EDT 01/27/2025 4:29 PM EDT us Karolyn Toro MD LAB MICROBIOLOGY - GENERAL ORD ERABLES Final Result Performing Organization Address [facility]/ZIP Co de Phone Number [facility] [address] [place] [address] * CT Abdomen Pelvis w IV Contrast [...] (ABNORMAL) CBC w/diff (01/27/2025 12:04 PM EDT) [facility] WBC Count 7.48 3.70 - 10.30 10*3/uL LAB HEMATOLOGY METHOD 01/27/2025 12:11 PM EDT [facility] RBC Count 4.17 3.90 - 5.20 10*6/uL LAB HEMATOLOGY METHOD 01/27/2025 12:11 PM EDT [facility] HGB 12.7 11.2 - 15.7 g/dL LAB HEMATOLOGY METHOD 01/27/2025 12:11 PM EDT [facility] HCT 36.1 34.0 - 45.0 % LAB HEMATOLOGY METHOD 01/27/2025 12:11 PM EDT [facility] Platelet Count 439(H) 155 - 369 10*3/uL LAB HEMATOLOGY METHOD 01/27/2025 12:11 PM EDT [facility] MCV 87 79 - 98 fL LAB HEMATOLOGY METHOD 01/27/2025 12:11 PM EDT [facility] MCH 30.5 26.0 - 32.0 pg LAB HEMATOLOGY METHOD 01/27/2025 12:11 PM EDT [facility] MCHC 35.2 30.7 - 35.5 g/dL LAB HEMATOLOGY METHOD 01/27/2025 12:11 PM EDT [facility] RDW 17.8(H) 11.5 - 14.5 % LAB HEMATOLOGY METHOD 01/27/2025 12:11 PM EDT [facility] MPV 8.1(L) 8.8 - 12.5 fL LAB HEMATOLOGY METHOD 01/27/2025 12:11 PM EDT [facility] nRBC 0.0 <=0.0 per 100 WBCs LAB HEMATOLOGY METHOD 01/27/2025 12:11 PM EDT [facility] Differential Type Automated LAB HEMATOLOGY METHOD 01/27/2025 12:11 PM EDT [facility] Neutrophils % 67 % LAB HEMATOLOGY METHOD 01/27/2025 12:11 PM EDT [facility] Lymphocytes % 18 % LAB HEMATOLOGY METHOD 01/27/2025 12:11 PM EDT [facility] Monocytes % 13 % LAB HEMATOLOGY METHOD 01/27/2025 12:11 PM EDT [facility] Eosinophils % 1 % LAB HEMATOLOGY METHOD 01/27/2025 12:11 PM EDT [facility] Basophils % 1 % LAB HEMATOLOGY METHOD 01/27/2025 12:11 PM EDT [facility] Immature Granulocytes % 0 % LAB HEMATOLOGY METHOD 01/27/2025 12:11 PM EDT [facility] Neutrophils Absolute 5.02 1.60 - 6.10 10*3/uL LAB HEMATOLOGY METHOD 01/27/2025 12:11 PM EDT [facility] Lymphocytes Absolute 1.32 1.20 - 3.90 10*3/uL LAB HEMATOLOGY METHOD 01/27/2025 12:11 PM EDT [facility] Monocytes Absolute 0.95(H) 0.30 - 0.90 10*3/uL LAB HEMATOLOGY METHOD 01/27/2025 12:11 PM EDT [facility] Eosinophils Absolute 0.09 0.00 - 0.50 10*3/uL LAB HEMATOLOGY METHOD 01/27/2025 12:11 PM EDT [facility] Basophils Absolute 0.08 0.00 - 0.10 10*3/uL LAB HEMATOLOGY METHOD 01/27/2025 12:11 PM EDT [facility] Immature Granulocytes Absolute 0.02 0.00 - 0.06 10*3/uL LAB HEMATOLOGY METHOD 01/27/2025 12:11 PM EDT [facility] Blood Venous blood specimen / Unknown Venipuncture / Unknown 01/27/2025 12:04 PM EDT 01/27/2025 12:09 PM EDT Narrative [facility] - 01/27/2025 12:11 PM EDT Therapeutic decision making should be based on absolute values, rather than percentages. us Karolyn Toro MD LAB BLOOD ORDERABLES Final Res ult [facility] [address] [place] [address] * (ABNORMAL) BMP (01/27/2025 12:04 PM EDT) Glucose, Plasma 119(H) 74 - 99 mg/dL 01/27/2025 12:32 PM EDT [facility] BUN, Plasma 13 8 - 23 mg/dL 01/27/2025 12:32 PM EDT [facility] Creatinine, Plasma 0.94 0.60 - 1.10 mg/dL 01/27/2025 12:32 PM EDT [facility] BUN/Creatinine Ratio 14 01/27/2025 12:32 PM EDT [facility] Sodium, Plasma 132(L) 136 - 145 mmol/L 01/27/2025 12:32 PM EDT [facility] Potassium, Plasma 4.0 3.6 - 4.9 mmol/L 01/27/2025 12:32 PM EDT [facility] Chloride, Plasma 96(L) 97 - 107 mmol/L 01/27/2025 12:32 PM EDT [facility] CO2, Plasma 22 22 - 29 mmol/L 01/27/2025 12:32 PM EDT [facility] Anion Gap 14 6 - 16 mmol/L 01/27/2025 12:32 PM EDT [facility] Total Calcium, Plasma 9.9 8.9 - 10.2 mg/dL 01/27/2025 12:32 PM EDT [facility] eGFRcr 65.4 mL/min/1.7 3m*2 01/27/2025 12:32 PM EDT [facility] Comment:Reported eGFRcr in m L/min/1.73m2 is based the CKD-EPI 2020 equation that does not use a race coefficient. Blood Venous blood specimen / Unknown Venipuncture / Unknown 01/27/2025 12:04 PM EDT 01/27/2025 12:09 PM EDT us Karolyn Toro MD LAB BLOOD ORDERABLES Final Res ult [facility] [address] [place] [address] * IR Nephrostomy Tube Exchange (12/20/2024 9:20 AM EDT) Anatomical Region Laterality Modality Body, Kidney X-Ray Angiograph y Impressions 12/20/2024 10:50 AM EDT Successful bilateral percutaneous nephrostomy tube exchange using 10 Malay locking pigtail drainage catheters. PLAN: Nephrostomy tube [...] for routine bilateral nephrostomy tube exchange. TECHNIQUE: Incoming Inspector: Sundeep Bowman MD Supervising attending: Liang Rodriguez [...] antisepsis, followed by sterile barrier draping A typewriter repairer film was performed to document the location [...] were no immediate complication. COMPARISON: None. FINDINGS: Shutdown Coordinator images and nephrostograms demonstrate bilateral percutaneous nephrostomy tubes in expected location. COMPLICATION: No. Procedure Note Liang Rodriguez MD - 12/20/2024 CLINICAL INDICATION: 69-year-old female who presents for routine bilateral nephrostomy tubeexchange. TECHNIQUE: Incoming Inspector: Sundeep Bowman MD Supervising attending: Liang Rodriguez [...] cutaneousantisepsis, followed by sterile barrier draping A typewriter repairer film was performed to document the location [...] there were no immediatecomplication. COMPARISON: None. FINDINGS: Shutdown Coordinator images and nephrostograms demonstrate bilateral percutaneousnephrostomy tubes [...] MD on 12/20/2024 10:50 AM Kristen Bryant [employer] IMG IR PROCEDURES Final Result * Hepatitis C Antibody - ED (07/22/2024 7:54 PM EST) Hepatitis C Antibody Negative Negative 07/22/2024 9:11 PM EST [facility] Blood Venous blood specimen / Unknown Venipuncture / Unknown 07/22/2024 7:54 PM EST 07/22/2024 8:09 PM EST Luz MCCABE LAB BLOOD ORDERABLES Missy sun Result [facility] [address] [place] [address] from Last 3 Months or Most Recently Relevant to Health Maintenance Additional Health Concerns Active Problems Noted Date Diagnosed Date Autogenerated Problem 02/11/2025 Insurance [place] [id number] [facility] MEDIC[facility] Advance Directives * Full Code [...] Patient has decision-making capacity? Yes Care Teams Practice Management Consultant Relationship Specialty Start Date End Date Luis Hatfield MD [address] [facility] [address] [place] [place] [id number] PCP - General 07/24/24
[2025-02-13 11:29] LABS: Hematocrit 33.1 % (37.0-47.0); Hemoglobin 11.4 g/dL (12.2-16.2); Immature Granulocytes % 0.1 %; Mean Corpuscular HGB Conc 34.4 g/dL (31.8-35.4); Mean Corpuscular Hemoglobin 30.5 pg (27.0-31.2); Mean Corpuscular Volume 88.5 fl (81-99); Nucleated Red Blood Cells % 0 %; Platelet Count 436 K/mm3 (142-424); Red Blood Count 3.74 M/mm3 (4.20-5.40); Red Cell Distribution Width-SD 57.7 fL; White Blood Count 7.3 K/mm3 (4.8-10.8)
[2025-02-13 11:52] LABS: Chloride 103 mmol/L (98-107)
[2025-02-13 11:53] LABS: Albumin Level 4.0 g/dl (3.5-5.0); Potassium 3.6 mmoL/L (3.5-5.1); Sodium 135 mmol/L (136-145)
[2025-02-13 11:55] LABS: Blood Urea Nitrogen 9 mg/dl (7-17); Creatinine Clearance Estimated 52 mL/min (50-200); Creatinine,Serum 0.80 mg/dl (0.52-1.04); Estimated Glomerular Filt Rate 71 ml/min (>60); GFR (African American) 86 ML/MIN (>60)
[2025-02-13 11:56] LABS: Alanine Aminotransferase 11 U/L (12-78); Albumin/Globulin Ratio 1.6 (1.1-1.8); Alkaline Phosphatase 72 U/L (38-126); Anion Gap 10.6 mEq/L (5-15); Aspartate Amino Transferase 31 U/L (14-36); Bilirubin,Total 0.9 mg/dl (0.2-1.3); Calcium 9.4 mg/dl (8.4-10.2); Carbon Dioxide 25 mmol/L (22.0-30.0); Globulin 2.5 g/dL (1.3-3.2); Glucose 78 mg/dl (74-100); Total Protein,Serum 6.5 g/dl (6.3-8.2)
[2025-02-13] MEDS: PROCHLORPERAZINE 10MG TABLET 10 MG PO (12:15)
[2025-02-13] MEDS: SODIUM CHLORIDE 0.9% IV (12:49)
[2025-02-13] MEDS: ENFORTUMAB VEDOTIN EJFV IV (12:49)
[2025-02-13 12:50] VITALS: BP 100/56; PULSE 84; RESP 18; TEMP 36.6; O2SAT 98
[2025-02-13] MEDS: SODIUM CHLORIDE 0.9% 100ML BAG 100 ML IV (12:50)
[2025-02-13 13:20] VITALS: BP 98/48; PULSE 82
[2025-02-13 13:36] VITALS: BP 102/49; PULSE 86
[2025-02-13] MEDS: PEMBROLIZUMAB 200 MG in 0.9 % SODIUM CHLORIDE 50 ML 116 MG IV (13:36)
[2025-02-13 14:15] VITALS: BP 101/54; PULSE 83; O2SAT 99
[2025-02-14 00:37] LABS: Thyroid Stimulating Hormone 0.71 uIU/mL (0.465-4.68)
== END 2025-02-13 14:25 | disposition home or self-care (01) ==
LOC: INF 11:01
PROVIDERS: PCP Family Medicine; Visit Provider Internal Medicine Medical Oncology
DX: C67.9 Malignant neoplasm of bladder, unspecified (principal); Z51.11 Encounter for antineoplastic chemotherapy
CPT/HCPCS: 80053; 82024; 82533; 84443; 85025; 96413; 96417; J9177; J9271; Q0164

== ENCOUNTER 2025-02-20 09:00 | Outpatient (CLI) | payer MEDICARE, SELFPAY ==
--- OUTSIDE RECORDS SUMMARY | 2024-09-17 06:15 | XMS_ITS ---
Author Organization [facility] Address [address] [facility] [address] [facility] [address] [place] [phone] Care Team Providers Care Volunteer Recruiter Name Role Phone Nikki Sevilla Primary Care Provider Luis Hatfield [phone] REASON FOR VISIT 6 week f/u Encounters Encounter Location Date Provider Diagnosis [facility] [address] [place], [place] [phone] 09/17/2024 Luis Hatfield Plan Of Treatment Next Appt Details Provider Name:Luis Hernández ry, 08/04/2025 09:30:00 AM, [address], [address], [place], [place], [phone], Progress Notes * Leandro PRITCHARDOB:[birth year] (69 yo F)Acc No.[id number]:09/17/2024 Progress Notes Patient: Sergei TREJOestine Provider: Clay Hatfield M.D. :1955 A ge:69 Y S ex:Female Date:09/17/2024 Address:[address] [place] [address] [place] [id number] Pcp:Nikki Sevilla Subjective: * Chief Complaints: * 1 . 6 week f/u. * Medical History: Objective: * Vitals: Assessment: Plan: * Treatment: * Images: Billing Information: * Visit Code: * Procedure Codes: * Electronic signature of Vicky Hatfield MD on 02/20/2025 at 09:23 AM EDT Sign off status: Pending * Provider: Clay Hatfield M.D. Date: 0 09/17/2024 Generated for Gonzales jaquez/Joyce/Gonzalez on: 0 02/20/2025 09:23 AM EDT
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
--- OUTSIDE RECORDS SUMMARY | 2024-12-26 10:30 | XMS_ITS | Encounter Summary ---
Author Organization [facility] Address [address] [place] [address] Care Team Providers Care Alterations Tailor Name Role Phone Luis Hatfield MD Primary Care Provider [phone] Reason for Visit * Reason Comments Seropositive rheumatoid arthritis 6 veronica h follow up Encounter Details Date Type Department Care Team (Latest Contact Info) Description 12/26/2024 10:30 AM EDT Office Visit [facility] RHEUMATOLOGY [address] [phone] Nguyen Romero APRN [address] [address] Seropositive rheumatoid arthritis (Primary Dx); Systemic lupus [...] DNA 13.0 (<4.0), Centromere and Chromatin normal, HEALTHCARE NETWORK PRICING CONSULTANT and SCL 70 normal, Christine normal, SSA and SSB normal, total bilirubin 1.4, Glucose 117, CMP was ok otherwise, CCP negative, CRP Normal, RF 110 (<14.0 normal), ESR normal, TSH normal * Medications/treatments/interventions tried include: Tylenol, meloxicam, Advil, CBD oil, Tumeric, Aspirin, Plaquenil, she has seen podiatry (Miky Steele DPM), she has seen depilatory painter (Dr. Jed Trevino), Ketamine, gabapentin, She [...] in medical records from [facility] for us to review. Subjective Review [...] DNA 13.0 (<4.0), Centromere and Chromatin normal, HEALTHCARE NETWORK PRICING CONSULTANT and SCL 70 normal, Christine normal, SSA and SSB normal, total bilirubin 1.4, Glucose 117, CMP was ok otherwise, CCP negative, CRP Normal, RF 110 (<14.0 normal), ESR normal, TSH normal * Medications/treatments/interventions tried include: Tylenol, meloxicam, Advil, CBD oil, Tumeric, Aspirin, Plaquenil, she has seen podiatry (Miky Steele DPM), she has seen depilatory painter (Dr. Jed Trevino), Ketamine, gabapentin, She [...] 06/28/2025) for Dr. Wells. Nguyen Romero APRN [facility] [place] documented in this encounter Plan of Treatment Upcoming Encounters Date Type Department Care Team (Late st Contact Info) Description 07/09/2025 10:45 AM EST Office Visit [facility] RHEUMATOLOGY [address] [place] [phone] Vicente Wells DO [address] [phone] Scheduled Orders Name Type Priority Associated Diagnoses [...] Whole Blood (01/17/2025) Blood us Nguyen Romero PHLEBOTOMY SPECIALIST LAB BLOOD ORDERABLES F inal Result [facility] (AMBULATORY) [address] [place] [address], documented in this encounter Visit Diagnoses Diagnosis Seropositive rheumatoid arthritis- Primary Systemic lupus erythematosus, unspecified SLE type, unspecified organ involvement status High risk medication use Primary osteoarthritis involving multiple joints NSAID long-term use Encounter for long-term (current) use of non-steroidal anti-inflammatories documented in this encounter Care Teams Alterations Tailor Relationship Specialty Start Date End Date Luis Hatfield MD [address] [place] [address] PCP - General Family Medicine 06/13/24 documented as of this encounter
--- OUTSIDE RECORDS SUMMARY | 2025-01-27 12:05 | XMS_ITS | Encounter Summary ---
Author Organization Healthcare Address [address] [place] [address] Care Team Providers Care Surveillance Sensor Officer Name Role Phone Luis Hatfield MD Primary Care Provider [phone] Reason for Visit * Reason Comments ileostomy concern Encounter Details Date Type Department Care Team ([facility] st Contact Info) Description 01/27/2025 12:05 PM EDT - 01/27/2025 7:02 PM EDT Emergency [facility] Emergency Department [address] [place] [address] Karolyn Toro MD [facility] [place] [address] Sheree Augustine MD [address] [place] [id number] UTI (urinary tract infection), bacterial (Primary Dx); Malfunction of nephrostomy tube ([facility]); Hydronephrosis, unspecified hydronephrosis type Discharge Disposition: Home or Self Care Social [...] money to buy more. Never true 09/24/19 Within the past 12 months, t he [...] in the past [address] 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) to steady your nerves or to [...] Sign Reading Time Taken Comments Blood Pressure 133/75 01/27/2025 3:27 PM EDT Pulse 110 01/27/2025 3:27 PM EDT Temperature 36.6 C (97.9 F) 01/27/2025 3:27 PM EDT Respiratory Rate 18 01/27/2025 3:27 PM EDT Oxygen Saturation 96% 01/27/2025 3:27 PM EDT Inhaled Oxygen Concentration - - Weight 51.7 kg (114 lb) 01/27/2025 11:38 AM EDT Height - - Body Mass Index 20.85 12/20/2024 7:30 AM EDT documented in this encounter Functional Status * Calculated C-SSRS Risk Score (Lifetime/Recent) Answer Date of Assessment Author No Risk Indicated 01/27/2025 12:11 PM EDT Amira Lenz ms, RN * Question Answer Date of Assessment Author 1. Wish to be (Past 1 Month) No 01/27/2025 12:11 PM EDT Aubrey Jules RN 2. Non-Specific Active Suicidal Thoughts (Past 1 Month) No 01/27/2025 12:11 PM EDT Aubrey Jules, RN 6. Suicidal Behavior (Lifetime) No 01/27/2025 12:11 PM EDT Aubrey Jules RN documented as of this encounter Discharge Instructions * Discharge Instructions* Nidia Martin MD - 01/27/2025 6:34 PM EDT You were seen and evaluated at [facility] Emergency Department. Urology saw you in the department and evaluated do. They were able to flush both nephrostomy tubes. Per their recommendations you should flush your nephrostomy tubes daily. If you have complications with flushing or ear tubes drainingyou may call the IR clinic at [phone] or be seen in the emergency department. A prescription for cefadroxil 500 mg 2 times a day for 5 days has been sent to the pharmacy. Keep your follow up appointment with oncology on 02/05/25 Please return to ED if your symptoms worsen, change in location, change in severity, new symptoms develop or if you become concerned for your health. documented in this encounter Medications at Time [...] tablet by mouth 2 times a day. irbesartan (Avapro) 300 MG tablet Take 1 tablet by mouth daily. multivitamin (Theragran) tablet Take 1 tablet by [...] 1 tablet by mouth in the morning. cefadroxil (Duricef) 500 MG capsuleIndicatio ns:UTI (urinary tract infection), bacterial Take 1 capsule by mouth 2 times a day for 5 days. 10 capsule 01/27/2025 documented as of this encounter Miscellaneous Notes * Consults - Julia Milner MD - 01/27/2025 6:44 PM EDTAssociated Order(s): Consult to Urology Consult to Urology Consult performed by: Julia Milner MD Consult ordered by: Sheree Augustine MD Reason for consult: b/l PCNTs not draining [facility] Urology Consult Note 01/27/25 Service Requesting Consultation: ED CC: b/l PCNTs not draining HPI: Yaima Pritchard is a 69 y.o. 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 States neither tube has drained at all today. She was still able to void through her urethra, and feels like she has been emptying her bladder adequately. States at baseline she flushes her perc neph tubes every other day. She has never had this issue before. Bilateral perc neph tubes were last flushed Monday without difficulty. She has never had pain or discomfort with flushes. Denies fevers, chills, nausea, vomiting, back pain, suprapubic pain, flank pain, or hematuria. Pt afebrile and HDS in ED. Labs notable for stable Cr at 0.94, CBC WNL, and UA (obtained from cleancatch urethral void) with large leukocytes, positive nitrites, and moderate blood, with >50 WBCs. PVR 299cc about [address] notable for significant R hydroureteronephrosis. As far as urologic history, pt initially presented to OSH with painless hematuria in 07/2024 that had been occurring over 3 months. 4.4cm bladder mass and associated HDN was found on imaging, and pt transferred to for TURBT and R ureteral stent placement. Pathology with high-grade urothelial carcinoma of the bladder. Pt was initially on board with proceeding with MICK + cystectomy, however, had issues with renal function that delayed the start of therapy. She had stent failure + VINCENZO requiring b/l nephrostomy tube placement on 09/12/2024. 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 Currently receiving chemotherapy with Medical Oncology clinic [place]. Past Medical History: reviewed Past Medical History[1] Past Surgical History: reviewed Surgical History[2] Family History: reviewed Family History[3] Social History: reviewed Social History[4] Outpatient Medications: Current Outpatient Medications Medication Instructions buPROPion (Wellbutrin) 75 MG tablet 1 tablet, 2 times daily cefadroxil (DURICEF) 500 mg, Oral, 2 times daily dexamethasone (DECADRON) 8 mg, 2 times daily with meals Ferrous Sulfate (IRON PO) 1 tablet, Daily hydroxychloroquine (Plaquenil) 200 MG tablet 1 tablet, 2 times daily irbesartan (AVAPRO) 300 mg, Daily multivitamin (Theragran) tablet 1 tablet, Daily ondansetron (Zofran) 4 MG tablet 1 tablet Orally every 8 hours as needed Probiotic Product (PROBIOTIC DAILY PO) 1 tablet, Daily prochlorperazine (COMPAZINE) 10 mg, Every 6 hours PRN rosuvastatin (CRESTOR) 40 mg, ZZ Daily RT sodium chloride 0.9 % flush 10 mL, Intravenous, As needed, Infuse as needed for percutaneous nephrostomy tube Syringe, Disposable, (Syringe 2-3 ML) 3 ML misc traMADol (ULTRAM) 50 mg, Every 6 hours PRN Turmeric (QC TUMERIC COMPLEX PO) 1 tablet, Daily PHYSICAL EXAM: Temp: [36.6 ??C (97.9 ??F)-36.7 ??C (98 ??F)] 36.6 ??C (97.9 ??F) Heart Rate: [110-114] 110 Resp: [18-20] 18 BP: (133-136)/(75-77) 133/75 SpO2: [94 %-96 %] 96 % GEN: NAD HEENT: NCAT, EOMI RESP: Equal bilateral chest rise, normal work of breathing CV: mild tachycardia, appears well perfused ABD: Non-distended, soft. R PCNT in place with mild debris in bag. L PCNT in place. : deferred EXT: No gross deformities MSK: Full ROM in BL UE NEURO: No focal deficits, alert and oriented PSYCH: Normal mood and affect LABS: Results from last 7 days Lab Units 01/27/25 1204 WBC 10*3/uL 7.48 HEMOGLOBIN g/dL 12.7 HEMATOCRIT % 36.1 PLATELETS 10*3/uL 439* Results from last 7 days Lab Units 01/27/25 1204 SODIUM mmol/L 132* POTASSIUM mmol/L 4.0 CHLORIDE mmol/L 96* CO2 mmol/L 22 BUN mg/dL 13 CREATININE mg/dL 0.94 EGFR mL/min/1.73m*2 65.4 GLUCOSE mg/dL 119* CALCIUM mg/dL 9.9 Results from last 7 days Lab Units 01/27/25 1537 COLOR UA Yellow SPEC GRAV U >1.030* PH UA 6.5 PROTEIN UR mg/dL 100* GLUCOSE UA mg/dL Negative KETONES UA mg/dL Negative LEUKOCYTES UA Large* NITRITE UA Positive* RBC, URINE /HPF 16 - 30* WBC, URINE /HPF >50* SQUAMOUS /HPF 0 - 2 BACTERIA UR HPF Present Results from last 7 days Lab Units 01/27/25 1537 COLOR UA Yellow SPEC GRAV U >1.030* PH UA 6.5 PROTEIN UR mg/dL 100* GLUCOSE UA mg/dL Negative KETONES UA mg/dL Negative LEUKOCYTES UA Large* NITRITE UA Positive* RBC, URINE /HPF 16 - 30* WBC, URINE /HPF >50* SQUAMOUS /HPF 0 - 2 BACTERIA UR HPF Present Imaging: All imaging personally reviewed. === 01/27/25 === CT ABDOMEN PELVIS W IV CONTRAST - Impression - Moderate to severe right-sided hydroureteronephrosis. There is mild left ureterectasis without significant left caliectasis. Bilateral for cutaneous nephrostomy tubes projecting grossly similar position within bilateral renal pelvises. Subcutaneous fractures involving the left inferior pubic ramus with new sclerosis involving the right pubic bone. Pathologic fracture could be considered. Please correlate clinically. Continued monitoring or tissue sampling. Similar changes within the urinary bladder may represent known history of urothelial carcinoma. Hospital Problem List: Active Problems: There are no active Hospital Problems. Procedures: R and L nephrostomy tubes flushed at bedside. After hand-flushing, both tubes draining well. Assessment: Yaima Pritchard is a 69 y.o. female with Pmhx lupus, HTN, and metastatic high-gradeurothelial carcinoma of the bladder status post Transurethral resection and b/l PCNT placement now on chemotherapy presenting for decreased output from both nephrostomy bags. Flushing of both nephrostomy tubes done at bedside. The nephrostomy tubes now draining well after flushing at bedside. Suspect that right hydroureteronephrosis will resolve with time. Reassured that patient does not have an VINCENZO. Reassured that there is no acute indications for urological surgical or medical management. Plan: - No indications for acute urological surgical or medical management - For the meantime, recommend patient to flush both nephrostomy tubes on a daily basis instead of every other day - Other percutaneous nephrostomy tube management per Interventional Radiology team - Recommend ED providers to provide IR phone number to utilize as a future reference to trouble shoot flushing nephrostomy tube questions - urology available for other questions or concerns - Rest of care per emergency medicine team Julia Milner MD [1] Past Medical History: Diagnosis Date Hypertension [...] Procedure Laterality Date CHOLECYSTECTOMY N/A Cholecystectomy from [facility] NECK SURGERY N/A Neck Surgery from [facility] [3] No family history on file. [4] Social History Tobacco Use Smoking status: Former Current packs/day: 0.10 Average packs/day: 0.1 packs/day for 51.6 years (5.2 ttl pk-yrs) Types: Cigarettes Start date: 1973 Smokeless tobacco: Never Vaping Use Vaping status: Never Used Substance Use Topics Alcohol use: Never Drug use: Never Cosigned by Ochoa Matias MD at 02/07/2025 7:30 AM EDT Associated attestation - Ochoa Matias MD - 02/07/2025 7:30 AM EDT I saw and evaluated the patient with the resident/fellow. I discussed the case with the resident/fellow and agree with the findings and plan as documented. * ED Provider Notes - Nidia Martin MD - 01/27/2025 11:30 AM EDT Images from the original note were not included. - HPI Chief Complaint Patient presents with ileostomy concern PIT Note Yaima Pritchard is a 69 y.o. female who presents to ED with decreased output from bilateral nephrostomy tubes. Says can still produce some urine. Reports hx urothelial carcinoma of the bladder s/p transurethral resection and ureteral stent placement. States last chemotherapy on 01/23/25. Denies current port. Patient denies current headache, fever, chills, cough, chest pain, shortness of breath, nausea, vomiting, or diarrhea. MAIN Note I assumed care of the patient following evaluation PIT. I performed my history, physical exam, evaluation. I agree with the following in addition: Patient is a 69-year-old female with a history of urothelial cancer crew chemotherapy s/p bilateralnephrostomy tube placement presenting to the emergency department for concerns of decreased output from the nephrostomy tubes. She reports a slowing of urine in the bags yesterday evening however noticed today she has had no output into her nephrostomy tube bags. She states she has been able to void through her urethra. She reports mild occasional lower abdominal pain associated. She denies any hematuria or dysuria with voiding. She has never had problems with her nephrostomy tubes in the past.She denies fever, chills, chest pain, shortness of breath, nausea, vomiting, diarrhea, back pain. Patient History Past Medical History[1] Surgical History[2] Family History[3] Social History[4] Allergies: Allergies[5] Physical Exam ED Triage Vitals [01/27/25 1138] Temp Heart Rate Resp BP 36.7 ??C (98 ??F) 114 20 136/77 SpO2 Temp Source Heart Rate Source Patient Position 94 % Oral Monitor -- BP Location FiO2 (%) -- -- Physical Exam Vitals and nursing note reviewed. Constitutional: General: She is not in acute distress. Appearance: Normal appearance. HENT: Head: Normocephalic and atraumatic. Nose: No rhinorrhea. Mouth/Throat: Mouth: Mucous membranes are moist. Pharynx: Oropharynx is clear. Eyes: General: Right eye: No discharge. Left eye: No discharge. Conjunctiva/sclera: Conjunctivae normal. Pupils: Pupils are equal, round, and reactive to light. Cardiovascular: Rate and Rhythm: Tachycardia present. Pulmonary: Effort: Pulmonary effort is normal. No respiratory distress. Breath sounds: No stridor. Abdominal: General: There is no distension. Palpations: Abdomen is soft. Tenderness: There is no abdominal tenderness. Musculoskeletal: General: Normal range of motion. Cervical back: No rigidity. Skin: General: Skin is warm and dry. Comments: Bilateral nephrostomy tubes without significant erythema or tenderness surrounding. No output in the nephrostomy bags bilaterally Neurological: Mental Status: She is alert and oriented to person, place, and time. Psychiatric: Mood and Affect: Mood normal. Behavior: Behavior normal. EASI ?? Total Score: 0 No data recorded TRST Assessment Total: 1 ED Course & MDM PIT 01/27/25 - 11:59 Scribe Attestation: This note was dictated to me, Brinda Whitman, acting as a scribe for Dr. Luis Rosenthal. Attending Attestation: This documentation was recorded by Brinda Whitman acting as a scribe in my presence at the time of the encounter and accurately reflects the service I personally performed and thedecisions made by me. Assessment: 69 y.o. female presents to ED with complaint of decreased nephrostomy tube output. It should be noted that the chronic conditions includes urothelial CA, which currently is not at goal therapy. This complicates the clinical picture because it Comorbidities: may be exacerbating symptoms Differential Diagnosis: Nephrostomy tube malfunction, metastatic disease, UTI, hydronephrosis In order to fully explore the differential diagnosis the following treatments and tests were ordered: ED Medication Administration from 01/27/2025 1130 to 01/28/2025 0912 Date/Time Order Dose Route Action 01/27/2025 1402 EDT iohexol (OMNIPaque) 300 MG/ML injection 100 mL 100 mL Intravenous Given All Other Orders Ordered Status Ordering Provider 01/27/25 1801 Urine Culture Once In process KAROLYN TORO 01/27/25 1801 SEND CLARISSA MESSAGE Once Final result KAROLYN TORO 01/27/25 1558 Once Canceled NIDIA MARTIN 01/27/25 1553 Consult to Urology Once Specialty: Urology Provider: (Not yet assigned) Completed NIDIA MARTIN 01/27/25 1549 Urinalysis Microscopic Examination Once Final result KAROLYN TORO 01/27/[address] Abdomen Pelvis w IV Contrast Once Final result NIDIA MARTIN 01/27/25 1159 CBC w/diff STAT Final result KAROLYN TORO 01/27/25 1159 BMP STAT Final result KAROLYN TORO 01/27/25 1159 Urinalysis with reflex microscopic AND reflex culture (IF UTI SUSPECTED) STAT Final result KAROLYN TORO 01/27/25 1159 Urinalysis with reflex microscopic (Culture NOT Included) PROCEDURE ONCE Final result KAROLYN TORO 01/27/25 1159 Urine Stafford Panel PROCEDURE ONCE Final result KAROLYN TORO ED Course as of 01/28/25 0912 MonJan 27, 2025 1322 Upon initial evaluation of the patient they are well-appearing, in no acute distress, hemodynamically stable, saturating well on room air, afebrile. Patient is a 69-year-old female with a history of urothelial carcinoma actively on chemotherapy. She has bilateral nephrostomy tubes. She is presenting to the emergency department for concerns of decreased output from the nephrostomy tubes. She states the decreased started yesterday evening and hashad no output today. She is having mild abdominal pain associated but no back pain, fevers, chills,nausea, vomiting. On examination patient does not have tenderness to palpation of the abdomen thereis no CVA tenderness. She has bilateral nephrostomy tubes with no erythema or tenderness surrounding them. She has no output and then nephrostomy tube bags. Concern for nephrostomy tube malfunction, infection, metastatic disease. We will fully assess with a CBC, CMP, urinalysis, CT abdomen and pelvis. [SM] 1322 CBC w/diff(!) Non actionable CBC. No leukocytosis or anemia. [SM] 1322 BMP(!) Non actionable BMP. Mild hyponatremia. [SM] 1426 CT Abdomen Pelvis w IV Contrast Right sided hydroureteronephrosis and mild left ureterectasis. Bilateral cutaneous nephrostomy tubes appearing in the correct position [SM] 1549 Urinalysis with reflex microscopic AND reflex culture (IF UTI SUSPECTED)(!) UTI [SM] 1558 Had interactive discussion with Urology about patient presentation. They we will come see and evaluate the patient. [SM] 1826 Urology evlauated patient and flushed nephrostomy tubes . They do not recommend acute intervention at this time. [SM] 1835 Discussed plan for discharge as urology was able to flush the nephrostomy tube successfully. Also discussed plan to send prescription for antibiotics as patient's urine appears infected. Patientstates she has a follow up appointment with Oncology soon. Patient verbalized understanding and is agreeable with plan for discharge. Return precautions were discussed. [SM] ED Course User Index [] Nidia Martin MD Clinical Impressions as of 01/28/25 0912 UTI (urinary tract infection), bacterial Malfunction of nephrostomy tube (CMS/HCC) Hydronephrosis, unspecified hydronephrosis type Social Determinates of Health Risks (including Economic Stability, Education and level of understanding, Healthcare access and quality and concerning social factors): Poor health literacy Ultimately, this patient was Was discharged Home (Discharge) The primary encounter diagnosis was UTI (urinary tract infection), bacterial. Diagnosesof Malfunction of nephrostomy tube (CMS/HCC) and Hydronephrosis, unspecified hydronephrosis type were also pertinent to this visit. . Patient was counseled on the diagnoses. Discharge medications if any are listed below. Listed medications are thought be either curative for listed diagnoses or willhelp control ongoing symptoms. Patient is requested to follow up with Patient's Primary Care Provider and Oncology in order to obtain routine follow-up and specialty care. Instructions on follow up as well as precautions to return to the ER provided verbally by the EM provider, as well as written in patients discharge education packet. ED Prescriptions Medication Sig Dispense Start Date End Date Auth. Provider cefadroxil (Duricef) 500 MG capsule Take 1 capsule by mouth 2 times a day for 5 days. 10 capsule 01/27/2025 02/01/2025 Sheree Augustine MD Discharge Instructions You were seen and evaluated at [facility] Emergency Department. Urology saw you in the department and evaluated do. They were able to flush both nephrostomy tubes. Per their recommendations you should flush your nephrostomy tubes daily. If you have complications with flushing or ear tubes drainingyou may call the IR clinic at [phone] or be seen in the emergency department. A prescription for cefadroxil 500 mg 2 times a day for 5 days has been sent to the pharmacy. Keep your follow up appointment with oncology on 02/05/25 Please return to ED if your symptoms worsen, change in location, change in severity, new symptoms develop or if you become concerned for your health. Disposition Discharge Pt discharged from ED. Pt vitally stable and in no obvious acute distress at the time of discharge. AVS (Lithuanian Snapshot) - Printed 01/27/2025 Follow-Ups: Follow up with Luis Hatfield MD; As needed - [1] Past Medical History: Diagnosis Date Hypertension [...] Procedure Laterality Date CHOLECYSTECTOMY N/A Cholecystectomy from [facility] NECK SURGERY N/A Neck Surgery from [employer] [3] No family history on file. [4] Tobacco Use Smoking status: Former Current packs/day: 0.10 Average packs/day: 0.1 packs/day for 51.6 years (5.2 ttl pk-yrs) Types: Cigarettes Start date: 1973 Smokeless tobacco: Never Vaping Use Vaping status: Never Used Substance Use Topics Alcohol use: Never Drug use: Never [5] Allergies Allergen Reactions Codeine Nausea And Vomiting, Nausea and Vomiting Nidia Harrington MD Resident 01/28/25 0908 Cosigned by Karolyn Toro MD at 01/28/2025 7:34 PM EDT Associated attestation - Karolyn Toro MD - 01/28/2025 7:34 PM EDT The patient was personally evaluated at bedside. Test results were reviewed and discussed with the patient. Case was discussed with the resident and I am in agreement with the assessment and plan * ED Triage Notes - Giana Maciel RN - 01/27/2025 11:30 AM EDT Decreased output from ileostomy since 01/26. Hx bladder cancer last chemo on 01/23 documented in this encounter Plan of Treatment Upcoming Encounters Date Type Department Care Team (Late st Contact Info) Description 03/07/2025 10:30 AM EDT Appointment [facility] Interventional Radiology [address] [place] [address] 05/14/2025 10:40 AM EST Office Visit [facility] [address] [place] [address] Lauren Christine PA [address] [place] [address] documented as of this encounter Procedures Procedure Name Priority Date/Time Associated Diagnosis Comments SEND CLARISSA MESSAGE STAT 01/27/2025 3: 37 PM EDT URINALYSIS WITH REFLEX MICROSCOPIC AND CULTURE STAT 01/27/2025 3:37 PM EDT URINE STAFFORD PANEL STAT 01/27/2025 3:37 PM EDT URINALYSIS MICROSCOPIC FOR UA REFLEX STAT 01/27/2025 3:37 PM EDT URINALYSIS WITH REFLEX MICROSCOPIC STAT 01/27/2025 3:37 PM EDT URINE CULTURE STAT 01/27/2025 3:[address] ABDOMEN PELVIS W IV CONTRAST STAT 01/27/2025 2:14 PM EDT CBC WITH AUTO DIFFERENTIAL STAT 01/27/2025 12:04 PM EDT BASIC METABOLIC PANEL, PLASMA STAT 01/27/2025 12:04 PM EDT documented in this encounter Results * SEND CLARISSA MESSAGE (01/27/2025 3:37 PM EDT) Urine Urine specimen obtained by clean catch procedure / Unknown Non-blood Collection / Unknown 01/27/2025 3:37 PM EDT 01/27/2025 4:29 PM EDT us Karolyn Toro MD LAB URINE ORDERABLES Final Res ult Performing Organization Address [facility] Co de Phone Number [facility] [address] [place] [address] * Urine Culture (01/27/2025 3:37 PM EDT) Culture >=100,000 CFU/mL Mixed urogenital , fecal, or skin meg present. 01/29/2025 1:54 PM EDT [facility] Comment:This is a corrected result. Previous organism was Gram Negative Elliot on 01/28/2025 at 1539 EDT. Urine Urine specimen obtained by clean catch procedure / Unknown Non-blood Collection / Unknown 01/27/2025 3:37 PM EDT 01/27/2025 4:29 PM EDT us Karolyn Toro MD LAB MICROBIOLOGY - GENERAL ORD ERABLES Final Result Performing Organization Address [facility] Co de Phone Number [facility] [address] [place] [address] * Urinalysis Microscopic Examination (01/27/2025 3:37 PM EDT) Urine Urine specimen obtained by clean catch procedure / Unknown Non-blood Collection / Unknown 01/27/2025 3:37 PM EDT 01/27/2025 3:39 PM EDT us Karolyn Toro MD LAB URINE ORDERABLES Final Res ult Performing Organization Address City/[facility]/ZIP Co de Phone Number [facility] [address] [place] [address] * Urine Stafford Panel (01/27/2025 3:37 PM EDT) Extra Sent for Culture 01/27/2025 6:01 PM EDT [facility] Urine Urine specimen obtained by clean catch procedure / Unknown Non-blood Collection / Unknown 01/27/2025 3:37 PM EDT 01/27/2025 4:29 PM EDT us Karolyn Toro MD LAB URINE ORDERABLES Final Res ult Performing Organization Address [facility]/ZIP Co de Phone Number [facility] [address] [place] [address] * (ABNORMAL) Urinalysis with reflex microscopic (Culture NOT Included) (01/27/2025 3:37 PM EDT) Color, Urine Yellow LAB URINALYSIS - AUTOMATED METHOD 01/27/2025 4:47 PM EDT [facility] Clarity, Urine Cloudy LAB URINALYSIS - AUTOMATED METHOD 01/27/2025 4:47 PM EDT [facility] Spec [place], Urine >1.030(H) 1.005 - 1.030 LAB URINALYSIS - AUTOMATED METHOD 01/27/2025 4:47 PM EDT [facility] pH, Urine 6.5 5.0 - 8.0 LAB URINALYSIS - AUTOMATED METHOD 01/27/2025 4:47 PM EDT [facility] Protein, Urine 100(A) Negative mg/dL LAB URINALYSIS - AUTOMATED METHOD 01/27/2025 4:47 PM EDT [facility] Glucose, Urine Negative Negative mg/dL LAB URINALYSIS - AUTOMATED METHOD 01/27/2025 4:47 PM EDT [facility] Ketones, Urine Negative Negative mg/dL LAB URINALYSIS - AUTOMATED METHOD 01/27/2025 4:47 PM EDT [facility] Blood, Urine Moderate(A) Negative LAB URINALYSIS - AUTOMATED METHOD 01/27/2025 4:47 PM EDT [facility] Bilirubin, Urine Negative Negative LAB URINALYSIS - AUTOMATED METHOD 01/27/2025 4:47 PM EDT [facility] Urobilinogen, Urine 1.0 0.2 to 1.0 mg/dL LAB URINALYSIS - AUTOMATED METHOD 01/27/2025 4:47 PM EDT [facility] Leukocytes, Urine Large(A) Negative LAB URINALYSIS - AUTOMATED METHOD 01/27/2025 4:47 PM EDT [facility] Nitrite, Urine Positive(A) Negative LAB URINALYSIS - AUTOMATED METHOD 01/27/2025 4:47 PM EDT [facility] RBC, Urine 16 - 30(A) 0 to 3 /HPF LAB URINALYSIS - AUTOMATED METHOD 01/27/2025 4:47 PM EDT [facility] Comment:This result was prev iously suppressed from the chart. WBC, Urine >50(A) 0 to 5 /HPF LAB URINALYSIS - AUTOMATED METHOD 01/27/2025 4:47 PM EDT [facility] Comment:This result was prev iously suppressed from the chart. Squamous Epithelial Cells 0 - 2 0 to 5 /HPF LAB URINALYSIS - AUTOMATED METHOD 01/27/2025 4:47 PM EDT [facility] Comment:This result was prev iously suppressed from the chart. Hyaline Casts 11 - 20(A) 0 to 5 /LPF LAB URINALYSIS - AUTOMATED METHOD 01/27/2025 4:47 PM EDT [facility] Comment:This result was prev iously suppressed from the chart. Bacteria, Urine Present Negative LAB URINALYSIS - AUTOMATED METHOD 01/27/2025 4:47 PM EDT [facility] Comment:This result was prev iously suppressed from the chart. Urine Urine specimen obtained by clean catch procedure / Unknown Non-blood Collection / Unknown 01/27/2025 3:37 PM EDT 01/27/2025 3:39 PM EDT us Karolyn Toro MD LAB URINE ORDERABLES Final Res ult [facility] [address] [place] [address] * CT Abdomen Pelvis w IV Contrast (01/27/2025 2:14 PM EDT) Anatomical Region Laterality Modality Abdomen, Pelvis Computed Tomogra phy Impressions 01/27/2025 3:20 PM EDT Moderate to severe right-sided hydroureteronephrosis. There is mild left ureterectasis without significant left caliectasis. Bilateral for cutaneous nephrostomy tubes projecting grossly similar position within bilateral renal pelvises. Subcutaneous fractures involving the left inferior pubic ramus with new sclerosis involving the right pubic bone. Pathologic fracture could be considered. Please correlate clinically. Continued monitoring or tissue sampling. Similar changes within the urinary bladder may represent known history of urothelial carcinoma. CRITICAL RESULT: No. COMMUNICATION: Per this written report. By electronically signing this report, I, the attending physician, attest that I have personally reviewed the images/data for the above examination(s) and agree with the final edited report. Drafted by Wojciech Galvez MD on 01/27/2025 2:19 PM Final report signed by Piyush Philippe MD on 01/27/2025 3:20 PM Narrative 01/27/2025 3:20 PM EDT CLINICAL INDICATION: no nephrosotomy output today bilaterally, hx of urothelial CA TECHNIQUE: Imaging of the abdomen and pelvis was performed, from lung bases through pubic symphysis, using spiral technique, following administration of IV contrast, Omnipaque 300, 100 mL. Delayed (excretory phase) images were performed through the kidneys. Reformatted images in the coronal and sagittal planes were generated from the axial data set to facilitate diagnostic accuracy. Total DLP (Dose-Length Product): 436.02 mGy.cm. Please note: The reported value represents the total of one or more individual components during the CT acquisition on this date and at this time, and as such, the same value may appear in more than one CT report depending on the interpreting/reporting physicians. COMPARISON: Outside CT abdomen September 20, 2024, INR nephrostomy tube exchange December 20, 2024 FINDINGS: Lung Bases: The lung bases are clear. Moderate hiatal hernia. Liver/Gallbladder/Biliary system: The liver demonstrates homogeneous enhancement. Prior cholecystectomy. No intra- or extra-hepatic biliary ductal dilatation. Spleen: The spleen enhances homogeneously. Evidence of granulomatous disease. Pancreas: The pancreas enhances homogeneously. Adrenals: The adrenals are morphologically unremarkable. Kidneys: The distal tip of bilateral percutaneous nephrostomy tubes are within the renal pelvis bilaterally and grossly similar to comparison CT. There is marked right hydroureteronephrosis. There is urothelial enhancement of the right ureteral wall. Calcification of the bladder wall at the right UVJ could relate to calcifications at the right ureteral orifice. There is also mild left-sided urothelial enhancement of the left ureter (series 2, image 33). Small calculus at the left inferior pole kidney. No left hydronephrosis. No disconnection or identified involving the nephrostomy tubes. Bowel/Mesentery: The small bowel loops are not dilated. The large bowel loops are not dilated. The appendix is visualized and nondilated. There are high attenuating foci in the mid appendix which could relate to an appendicolith. Vessels/Lymph Nodes: Moderate atherosclerosis of the aortoiliac system. No lymphadenopathy within the abdomen or pelvis. Fluid Survey: No free fluid in the abdomen. No free fluid in the pelvis. Pelvis: The pelvic viscera are unremarkable. Body Wall: Bilateral percutaneous nephrostomy tubes. Bones: Redemonstration of a T12 vertebroplasty. Subacute appearing left inferior pubic ramus fracture and sclerosis of the right pubic bone possibly related to prior injury. Procedure Note Piyush Philippe MD - 01/27/2025 CLINICAL INDICATION: no nephrosotomy output today bilaterally, hx of urothelial CA TECHNIQUE: Imaging of the abdomen and pelvis was performed, from lung bases throughpubic symphysis, using spiral technique, following administration of IVcontrast, Omnipaque 300, 100 mL. Delayed (excretory phase) images wereperformed through the kidneys. Reformatted images in the coronal andsagittal planes were generated from the axial data set to facilitatediagnostic accuracy. Total DLP (Dose-Length Product): 436.02 mGy.cm. Please note: The reportedvalue represents the total of one or more individual components during theCT acquisition on this date and at this time, and as such, the same valuemay appear in more than one CT report depending on theinterpreting/reporting physicians. COMPARISON: Outside CT abdomen September 20, 2024, INR nephrostomy tube exchange December FINDINGS: Lung Bases: The lung bases are clear. Moderate hiatal hernia. Liver/Gallbladder/Biliary system: The liver demonstrates homogeneousenhancement. Prior cholecystectomy. No intra- or extra-hepatic biliaryductal dilatation. Spleen: The spleen enhances homogeneously. Evidence of granulomatousdisease. Pancreas: The pancreas enhances homogeneously. Adrenals: The adrenals are morphologically unremarkable. Kidneys: The distal tip of bilateral percutaneous nephrostomy tubes arewithin the renal pelvis bilaterally and grossly similar to comparison CT.There is marked right hydroureteronephrosis. There is urothelialenhancement of the right ureteral wall. Calcification of the bladder wallat the right UVJ could relate to calcifications at the right ureteralorifice. There is also mild left-sided urothelial enhancement of the leftureter (series 2, image 33). Small calculus at the left inferior polekidney. No left hydronephrosis. No disconnection or identified involvingthe nephrostomy tubes. Bowel/Mesentery: The small bowel loops are not dilated. The large bowelloops are not dilated. The appendix is visualized and nondilated. Thereare high attenuating foci in the mid appendix which could relate to anappendicolith. Vessels/Lymph Nodes: Moderate atherosclerosis of the aortoiliac system. Nolymphadenopathy within the abdomen or pelvis. Fluid Survey: No free fluid in the abdomen. No free fluid in the pelvis. Pelvis: The pelvic viscera are unremarkable. Body Wall: Bilateral percutaneous nephrostomy tubes. Bones: Redemonstration of a T12 vertebroplasty. Subacute appearing leftinferior pubic ramus fracture and sclerosis of the right pubic bonepossibly related to prior injury. IMPRESSION: Moderate to severe right-sided hydroureteronephrosis. There is mild leftureterectasis without significant left caliectasis. Bilateral forcutaneous nephrostomy tubes projecting grossly similar position withinbilateral renal pelvises. Subcutaneous fractures involving the left inferior pubic ramus with newsclerosis involving the right pubic bone. Pathologic fracture could beconsidered. Please correlate clinically. Continued monitoring or tissuesampling. Similar changes within the urinary bladder may represent known history ofurothelial carcinoma. CRITICAL RESULT: No. COMMUNICATION: Per this written report. By electronically signing this report, I, the attending physician, attnateat I have personally reviewed the images/data for the aboveexamination(s) and agree with the final edited report. Drafted by Wojciech Galvez MD on 01/27/2025 2:19 PM Final report signed by Piyush Philippe MD on 01/27/2025 3:20 PM Karolyn Toro MD IMG CT PROCEDURES Final Result * (ABNORMAL) BMP (01/27/2025 12:04 PM EDT) Glucose, Plasma 119(H) 74 - 99 mg/dL 01/27/2025 12:32 PM EDT [facility] BUN, Plasma 13 8 - 23 mg/dL 01/27/2025 12:32 PM EDT [facility] Creatinine, Plasma 0.94 0.60 - 1.10 mg/dL 01/27/2025 12:32 PM EDT [facility] BUN/Creatinine Ratio 14 01/27/2025 12:32 PM EDT [facility] Sodium, Plasma 132(L) 136 - 145 mmol/L 01/27/2025 12:32 PM EDT [facility] Potassium, Plasma 4.0 3.6 - 4.9 mmol/L 01/27/2025 12:32 PM EDT [facility] Chloride, Plasma 96(L) 97 - 107 mmol/L 01/27/2025 12:32 PM EDT [facility] CO2, Plasma 22 22 - 29 mmol/L 01/27/2025 12:32 PM EDT [facility] Anion Gap 14 6 - 16 mmol/L 01/27/2025 12:32 PM EDT [facility] Total Calcium, Plasma 9.9 8.9 - 10.2 mg/dL 01/27/2025 12:32 PM EDT [facility] eGFRcr 65.4 mL/min/1.7 3m*2 01/27/2025 12:32 PM EDT [facility] Comment:Reported eGFRcr in m L/min/1.73m2 is based the CKD-EPI 2020 equation that does not use a race coefficient. Blood Venous blood specimen / Unknown Venipuncture / Unknown 01/27/2025 12:04 PM EDT 01/27/2025 12:09 PM EDT us Karolyn oTro MD LAB BLOOD ORDERABLES Final Res ult [facility] [address] [place] [address] * (ABNORMAL) CBC w/diff (01/27/2025 12:04 PM EDT) WBC Count 7.48 3.70 - 10.30 10*3/uL LAB HEMATOLOGY METHOD 01/27/2025 12:11 PM EDT [facility] RBC Count 4.17 3.90 - 5.20 10*6/uL LAB HEMATOLOGY METHOD 01/27/2025 12:11 PM EDT [facility] HGB 12.7 11.2 - 15.7 g/dL LAB HEMATOLOGY METHOD 01/27/2025 12:11 PM EDT [facility] HCT 36.1 34.0 - 45.0 % LAB HEMATOLOGY METHOD 01/27/2025 12:11 PM EDT [facility] Platelet Count 439(H) 155 - 369 10*3/uL LAB HEMATOLOGY METHOD 01/27/2025 12:11 PM EDT [facility] MCV 87 79 - 98 fL LAB HEMATOLOGY METHOD 01/27/2025 12:11 PM EDT [facility] MCH 30.5 26.0 - 32.0 pg LAB HEMATOLOGY METHOD 01/27/2025 12:11 PM EDT [facility] MCHC 35.2 30.7 - 35.5 g/dL LAB HEMATOLOGY METHOD 01/27/2025 12:11 PM EDT [facility] RDW 17.8(H) 11.5 - 14.5 % LAB HEMATOLOGY METHOD 01/27/2025 12:11 PM EDT [facility] MPV 8.1(L) 8.8 - 12.5 fL LAB HEMATOLOGY METHOD 01/27/2025 12:11 PM EDT [facility] nRBC 0.0 <=0.0 per 100 WBCs LAB HEMATOLOGY METHOD 01/27/2025 12:11 PM EDT [facility] Differential Type Automated LAB HEMATOLOGY METHOD 01/27/2025 12:11 PM EDT [facility] Neutrophils % 67 % LAB HEMATOLOGY METHOD 01/27/2025 12:11 PM EDT [facility] Lymphocytes % 18 % LAB HEMATOLOGY METHOD 01/27/2025 12:11 PM EDT [facility] Monocytes % 13 % LAB HEMATOLOGY METHOD 01/27/2025 12:11 PM EDT [facility] Eosinophils % 1 % LAB HEMATOLOGY METHOD 01/27/2025 12:11 PM EDT [facility] Basophils % 1 % LAB HEMATOLOGY METHOD 01/27/2025 12:11 PM EDT [facility] Immature Granulocytes % 0 % LAB HEMATOLOGY METHOD 01/27/2025 12:11 PM EDT [facility] Neutrophils Absolute 5.02 1.60 - 6.10 10*3/uL LAB HEMATOLOGY METHOD 01/27/2025 12:11 PM EDT [facility] Lymphocytes Absolute 1.32 1.20 - 3.90 10*3/uL LAB HEMATOLOGY METHOD 01/27/2025 12:11 PM EDT [facility] Monocytes Absolute 0.95(H) 0.30 - 0.90 10*3/uL LAB HEMATOLOGY METHOD 01/27/2025 12:11 PM EDT [facility] Eosinophils Absolute 0.09 0.00 - 0.50 10*3/uL LAB HEMATOLOGY METHOD 01/27/2025 12:11 PM EDT [facility] Basophils Absolute 0.08 0.00 - 0.10 10*3/uL LAB HEMATOLOGY METHOD 01/27/2025 12:11 PM EDT [facility] Immature Granulocytes Absolute 0.02 0.00 - 0.06 10*3/uL LAB HEMATOLOGY METHOD 01/27/2025 12:11 PM EDT [facility] Blood Venous blood specimen / Unknown Venipuncture / Unknown 01/27/2025 12:04 PM EDT 01/27/2025 12:09 PM EDT [facility] - 01/27/2025 12:11 PM EDT Therapeutic decision making should be based on absolute values, rather than percentages. us Karolyn Toro MD LAB BLOOD ORDERABLES Final Res ult [facility] [address] [place] [address] documented in this encounter Visit Diagnoses Diagnosis UTI (urinary tract infection), bacterial- Primary Malfunction of nephrostomy tube (CMS/HCC) Hydronephrosis, unspecified hydronephrosis type documented in this encounter Administered Medications Inactive Administered Medications - up to 3 most recent administrations Medication Order MAR Action Action Date Dose Rate Site iohexol (OMNIPaque) 300 MG/ML injection 100 mL 100 mL, Intravenous, Once in imaging, 1 dose, Starting on Mon01/27/25 at 1337, Until Mon01/27/25 at 1402, Routine, Imaging Protocol Orders Given 01/27/2025 2:02 PM EDT 100 mL documented in this encounter Active and Recently Administered Medications Times are shown in EDT. Scheduled Medication Order 01/25/2025 01/26/2025 01/27/2025 iohexol (OMNIPaque) 300 MG/ML injection 100 mL (COMPLETED) 100 mL, Intravenous, Once in imaging, 1 dose, Starting on Mon01/27/25 at 1337, Until Mon01/27/25 at 1402, Routine, Imaging Protocol Orders 1402 (Given - Provid er: Lucie Stewart) documented in this encounter Additional Health Concerns Assessment Noted Time PHQ-9 Depression Total Score: 0 10/10/19 12:34 PM EDT A fall risk assessment has been complete d for the patient 10/09/2024 12:34 PM EDT A Body Mass Index follow-up plan has been documented for the patient 01/15/2025 4:33 PM EDT documented as of this encounter Care Teams Surveillance Sensor Officer Relationship Specialty Start Date End Date Luis Hatfield MD [address] [place] [address] [address], [place] [address] PCP - General 07/24/24 documented as of this encounter
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
--- OUTSIDE RECORDS SUMMARY | 2025-02-05 11:45 | XMS_ITS | Encounter Summary ---
Author Organization Healthcare Address [address] [place] [address] Care Team Providers Care Logging Truck Driver Name Role Phone Luis Hatfield MD Primary Care Provider [phone] Reason for Visit * Reason Comments Follow-up Malignant neoplasm o f urinary bladder, unspecified site Encounter Details Date Type Department Care Team (Latest Contact Info) Description 02/05/2025 11:45 AM EDT Office Visit [facility] Multidisciplinary Oncology Clinic [address] [place] [address] Ochoa Matias MD [address] [place] [address] Malignant neoplasm of urinary bladder, unspecified [...] Date Recorded Patient Health Questionnaire-2 Score 0 02/05/2025 Hunger Vital Sign Answer Date Recorded Within [...] Date Recorded Patient Health Questionnaire-9 Score 0 02/05/2025 Housing Stability Vital Sign Answer Sigifredo e Recorded In the last 12 months, was t here a time when you were not able to pay the mortgage or rent on time? No 09/23/2024 In the past 12 months, how m any times have you moved where you were living? 0 09/23/2024 At any time in the past 12 m [facility], were you homeless or [...] first t kimberlyn in the morning (EYE-SENIOR JAVA DEVELOPER) to steady your nerves or to [...] Sign Reading Time Taken Comments Blood Pressure 128/81 02/05/2025 11:35 AM EDT Pulse 91 02/05/2025 11:35 AM EDT Temperature 36.5 C (97.7 F) 02/05/2025 11:35 AM EDT Respiratory Rate 14 02/05/2025 11:35 AM EDT Oxygen Saturation 96% 02/05/2025 11:35 AM EDT Inhaled Oxygen Concentration - - Weight 63.2 kg (139 lb 5.3 oz) 02/05/2025 11:35 AM EDT Height 155.7 cm (5' 1.3 ) 02/05/2025 11:35 AM ED T Body Mass Index 26.07 02/05/2025 11:35 AM EDT documented in this encounter Functional Status * Over the past 2 weeks, how often have you been bothered by any of the following problems? Question Answer Date of Assessment Author Little interest or pleasure in doing things Not at all 02/05/2025 11:38 AM EDT Zina Schultz Feeling down, depressed, or hopeless Not at all 02/05/2025 11:38 AM EDT Zina Schultz Patient Health Questionnaire -2 Score 0 02/05/2025 11:38 AM EDT Zina Schultz * Question Answer Date of Assessment Author Trouble falling or staying a sleep, or sleeping too much Not at all 02/05/2025 11:38 AM EDT Zina Schultz Feeling tired or having darek le energy Not at all 02/05/2025 11:38 AM EDT Zina Schultz Poor appetite or overeating Not at all 02/05/2025 11 :38 AM EDT Zina Schultz Feeling bad about yourself - or that you are a failure or have let yourself or your family down Not at all 02/05/2025 11:38 AM EDT Mesfin Schultz Trouble concentrating on thi ngs, such as reading the newspaper or watching television Not at all 02/05/2025 11:38 AM Zina Pickard Moving or speaking so slowly that other people could have noticed? Or the opposite - being so fidgety or restless that you have been moving around a lot more than usual. Not at all 02/05/2025 11:38 AM Zina Pickard Thoughts that you would be b milena off or hurting yourself in some way Not at all 02/05/2025 11:38 AM Zina Pickard Patient Health Questionnaire -9 Score 0 02/05/2025 11:38 AM Zina Pickard * If you checked off any problems on this questionnaire so far, Question Answer Date of Assessment Author How difficult have these problems made it for you to do your work, take care of things at home, or get along with other people? Not difficult at all 02/05/2025 11:38 AM Zina Pickard documented as of this encounter Miscellaneous Notes * Progress Notes - Ochoa Matias MD - 02/05/2025 11:45 AM EDT Images from the original note [...] then found to have metastatic disease. She continues on systemic therapy with Dr. Santiago cuadra. Recent CT scan showed possible disease progression and her bony pelvis. The patient isinterested in trying internalization of the nephrostomy tubes which we will schedule in the operating room. Ochoa Matias MD Rag Shredder Department of Urology History of Present Illness: Yaima Pritchard is a 69 y.o. female from [facility] [address] who returns in follow-up for bladder cancer. The patient was transferred to the emergency department from [facility] on 07/22/2024 with weakness short of breath [...] been voiding well. Follows closely with the telesales professional. Patient has history lupus on hydroxychloroquine with her primary symptom being arthralgias. Baseline serum creatinine1.4 with GFR 40. She has seen a medical oncologist closer to home near [place], however, she has had issues with her [...] metastatic lesions in the liver and lungs. She has been receiving systemic therapy locally with her medical oncologist, Dr. Henderson. Managed withnephrostomy tubes. 02/05/2025. Returns in follow up. Recent imaging 01/27/2025 showed left inferior pubic ramus and right pubic bone sclerotic lesions with possible pathologic fracture. Still having good urine output from her right nephrostomy tube, left nephrostomy tube putting out very little and patient is starting to void per urethra. Past Medical History: Diagnosis Date Hypertension Lupus [...] Procedure Laterality Date CHOLECYSTECTOMY N/A Cholecystectomy from [facility] NECK SURGERY N/A Neck Surgery from [facility] No family history on file. Social History Socioeconomic History Marital status: Spouse name: Not on file Number of children: Not on file Years of education: Not on file Highest education level: Not on file Occupational History Not on file Tobacco Use Smoking status: Former Current packs/day: 0.10 Average packs/day: 0.1 packs/day for 51.7 years (5.2 ttl pk-yrs) Types: Cigarettes Start [...] Current Outpatient Medications Medication Sig Dispense Refill ascorbic acid (vitamin C) 1000 MG tablet Take 1 tablet by mouth daily. buPROPion (Wellbutrin) 75 MG tablet Take 1 tablet by mouth 2 times a day. Ferrous Sulfate (IRON PO) Take 1 tablet by mouth daily. HYDROcodone-acetaminophen ([place]) 5-325 MG tablet Take 1-2 tablets by mouth every 8 hours as needed. irbesartan (Avapro) 300 MG tablet Take 1 tablet by mouth in the morning. ondansetron (Zofran) 4 MG tablet 1 tablet Orally every 8 hours as needed prochlorperazine (Compazine) 10 MG tablet Take 1 [...] Disposable, (Syringe 2-3 ML) 3 ML misc dexamethasone (Decadron) 4 MG tablet Take 2 tablets by mouth in the morning and 2 tablets in the evening. Take with meals. For 3 days , starting day after Chemo , for 6 cycles . . (Patient not taking: Reported on 02/05/2025) hydroxychloroquine (Plaquenil) 200 MG tablet Take 1 tablet by mouth in the morning and 1 tablet before bedtime. (Patient not taking: Reported on 02/05/2025) multivitamin (Theragran) tablet Take 1 tablet by mouth in the morning. (Patient not taking: Reported on 02/05/2025) Probiotic Product (PROBIOTIC DAILY PO) Take 1 tablet by mouth in the morning. (Patient not taking: Reported on 02/05/2025) traMADol (Ultram) 50 MG tablet Take 1 tablet by mouth every 6 hours as needed. (Patient not taking:Reported on 02/05/2025) Turmeric (QC TUMERIC COMPLEX PO) Take 1 tablet by mouth in the morning. (Patient not taking: Reported on 02/05/2025) No current facility-administered medications for this visit. [...] the assessment and plan. Surgical Pathology Exam: [id number] Order: [id number] Collected 07/23/2024 13:18 Status: Final result Visible to patient: Yes (not seen) Dx: Bladder mass 0 Result Notes Component Final Diagnosis A. BLADDER TUMOR, TRANSURETHRAL RESECTION: - MUSCLE INVASIVE HIGH-GRADE PAPILLARY UROTHELIAL CARCINOMA. - LYMPHOVASCULAR INVASION IDENTIFIED. documented in this encounter Plan of Treatment Upcoming Encounters Date Type Department Care Team (Late st Contact Info) Description 03/07/2025 10:30 AM EDT Appointment [facility] Interventional Radiology [address] [place] [address] 05/14/2025 10:40 AM EST Office Visit [facility] Multidisciplinary Oncology Clinic [address] [place] [address] Lauren Christine PA [address] [facility] [address] [place] [address] documented as of this encounter Visit Diagnoses Diagnosis Malignant neoplasm of urinary bladder, unspecified site (CMS/HCC)- Primary documented in this encounter Additional Health Concerns Assessment Noted Time PHQ-9 Depression Total Score: 0 02/06/20 11:38 AM EDT A fall risk assessment has been complete d for the patient 02/05/2025 11:38 AM EDT A Body Mass Index follow-up plan has been documented for the patient 02/05/2025 12:06 PM EDT documented as of this encounter Care Teams Logging Truck Driver Relationship Specialty Start Date End Date Luis Hatfield MD [facility] [place] [address] PCP - General 07/24/24 documented as of this encounter
--- OUTSIDE RECORDS SUMMARY | 2025-02-17 11:28 | XMS_ITS | Encounter Summary ---
Author Organization Healthcare Address [address] [place] [address] Care Team Providers Care Information Technology Audit Manager Name Role Phone Luis Hatfield MD Primary Care Provider [phone] Reason for Visit * Auth/Cert (Routine) Specialty Diagnoses / Procedures Referred By Stephen parks Referred To Contact Diagnoses Other hydronephrosis Other hydronephrosis [N13.39] Procedures [place] PLMT NEPHROSTOMY CATH PRQ NEW ACCESS RS&I CHG X-RAY RETROGRADE PYELOGRAM [place] CYSTOSCOPY,INSERT URETERAL STENT CYSTOSCOPY, WITH URETERAL STENT REPLACEMENT TURBT, USING BIPOLAR CAUTERY PROBE, WITH SALINE IRRIGATION Ochoa Matias MD [address] [address] Phone: tel: fax: [facility] [address] [place] [address] Phone: tel: Referral ID Status Reason Start Date Expiration Date Visits Re quested Visits Authorized [id number] 1 1 Encounter Details Date Type Department Care Team (Latest Contact Info) Description 02/17/2025 11:28 AM EDT - 02/17/2025 3:25 PM EDT Hospital Encounter [facility] [address] [place] [address] Ochoa Matias MD [address] [place] [phone] Other hydronephrosis (Primary Dx) Discharge Disposition: [...] in the past 12 m [facility], were you homeless or living in a [...] drink first t kimberlyn in the morning (EYE-DROP TESTER) to steady your nerves or to get [...] Sign Reading Time Taken Comments Blood Pressure 135/70 02/17/2025 3:25 PM EDT Pulse 73 02/17/2025 3:25 PM EDT Temperature 36.4 C (97.6 F) 02/17/2025 3:20 PM EDT Respiratory Rate 15 02/17/2025 3:25 PM EDT Oxygen Saturation 100% 02/17/2025 3:25 PM EDT Inhaled Oxygen Concentration - - [...] confirm your location ahead of your appointment) [facility] Urology Department Clinic at [facility] [address], 2nd Floor, Wing C, [address] [place] [address] Clinic After Hours [facility]rology [facility] [address] [place] [address] Clinic After Hours documented in this encounter [...] 1 tablet by mouth daily. HYDROcodone-acet aminophen (Comptche) 5-325 MG tablet Take 1-2 tablets by mouth every 8 hours as needed. hydroxychloroqui ne (Plaquenil) 200 MG tablet Take 1 tablet by mouth 2 times a day. ibuprofen 600 MG tablet Take 1 tablet by mouth every 6 hours as needed for mild pain for up to 10 days. 15 tablet 02/17/2025 5 irbesartan (Avapro) 300 MG tablet Take 1 tablet by mouth daily. multivitamin (Theragran) tablet Take 1 tablet by mouth in the morning. ondansetron (Zofran) 4 MG tablet 1 tablet Orally every 8 hours as needed 09/27/2024 phenazopyridine (Pyridium) 100 MG tablet Take 2 tablets by mouth 3 times a day as needed for pain, discomfort or irritation for up to 3 days. 10 tablet 02/17/2025 5 Probiotic Product (PROBIOTIC DAILY PO) Take 1 [...] Postoperative Diagnosis: Same Surgeon: Ochoa Matias MD Solo Musician Surgeon: Michael Hardin DO Intraoperative Findings: Cystoscopy [...] the nephrostomy tube and removed it. A [place] catheter was advanced over the wire and [...] was removed. We then advanced a 6 Romanian by 24 cm ureteral stent without strings [...] Hardin DO PGY-3, Department of Urology Pager: [phone] * H&P - Michael Hardin DO - [...] Hardin, DO PGY-3, Department of Urology Pager: [phone] [1] Past Medical History: Diagnosis Date Cancer [...] 1 tablet by mouth daily. 02/16/2025 HYDROcodone-acetaminophen (Comptche) 5-325 MG tablet Take 1-2 tablets by [...] welcome you, your family, and friends to [facility]. We offer access to more than 1,500 [...] will help you be more comfortable with [facility] and the surgical process. This information provides [...] located on the first floor of the [facility] near the Pharmacy and main clinic entrance. We are open Monday-Monday from 8 a.m. to 4:30 p.m. A clinic correspondence representative can be reached at [phone]. Parking is available in the [facility] garage on [address] or in the [facility] garage located at [address], directly across [facility] from [facility]. The day before surgery You will receive a phone call telling you what time you need to arrive at the hospital for surgery.If you miss the call, please call one of the following numbers (depending on where your surgery is scheduled): ? [facility]: [phone] or [phone] ? [facility] Surgery: [phone] or [phone] The day of surgery ? Arrive on time to avoid delays or cancellation. ? Park in the [facility] parking garage located at [address] It is directly across [facility] from the [facility]. ? If you are scheduled for surgery at [facility], take the hospital garage elevator to Level C, then cross the concourse bridge to the Surgery Waiting Room to register for your [facility]. [facility] is located down the first hallway to the right at the end of the concourse bridge. If you need help crossing the concourse, you may hand picker the patient golf cart shuttle directlyto the right of the elevators on Level C. ? If you are scheduled for surgery at the [facility], take the garage elevator to Level A and catch the free shuttle to the hospital. (Be careful not to take the [facility] shuttle - there is an ambassador [...] checked many times throughout your stay at [facility] to ensure your safety. ? Go over [...] talk to them after your surgery. A cost clerk is available in the waiting room [...] living will, health care surrogate, power of civil attorney or guardianship papers. ? Bring a [...] makeup, jewelry (including body piercing) or nail egyptian. ? Don?t bring money or valuables to [...] office and the Preoperative Anesthesia Clinic at [phone] or [phone]. If it is the day of surgery, call the location where you are scheduled to have your surgery: [facility] at [phone] or [phone] or [facility] at [phone] or [phone]. For more information Visit [email or web address] or call [phone] or [phone]. [facility] does not discriminate. [facility] complies with applicable Federal civil rights laws and does not discriminate on the basis of race, color, national origin, age, disability, or sex. * Dagoberto Terrazas - Evita Sánchez RN - 02/13/2025 1:20 PM EDT Images from the original note were not included. 489 Map to [facility] Facilities Directions Easy directions to and from [address] (from [address]) Directions from I-75/[place]-64 to the [facility] Parking Garage: ? From [address], turn right off the exit ramp onto [address] ([place] [address] [address]) toward [place]. ? In 4.1 miles, turn left onto [address] (at the [employer] gas station). ? In a half-mile, turn right onto [address]. ? In .3 miles, turn right onto [address] (just past the [employer] gas station). Garage entrance is on the left. ? Important: This garage address will change to [address] [place] [address] on December 10, 2024. Directions from HealthCare Parking Garage to I-75/I-64: ? Turn left out of the garage onto [address]. ? Turn left onto [address]. ? In .3 miles, turn left down [address] ? In a half-mile, turn right onto [address] (at the [employer] gas station). ? In 4.1 miles, merge onto [address] /[address] (near the [facility] by [address]). Parking Any patients or visitors of [facility] can park in the following areas: ? [facility] Parking Garage (main garage): [address] (Levels A-F) ? [facility] Garage: [address] (Levels 1-6) ? [facility] Cancer lot: Located off [employer] (limited parking for [facility] outpatients only). Upon Your Arrival ? Patients and visitors going to [facility], [facility], and [facility] may walk across the pedway, located [...] also be accessed via the pedway off [facility] garage on Level C. If you need a shuttle to the ED, one can be called for you at Level A of the main garage or contact any of the information desks, . Additional Information For additional information, please visit our information desks located throughout Healthcare. Information desks have additional maps and resources. Information desks are located at the main entrances of: [place] [facility] (first floor and ground floor), [facility], [facility], [facility], [facility], [facility] (first and third floor), and [facility]. Informationdesk number: [phone]. Important Addresses [address] ? [facility] entrance ? [facility] A ? [facility] G ([facility]) ? Emergency Department [address] ? [facility] ? [facility] ([facility]) ? [facility] ([facility]) ? [facility] [address] ? [facility] [address] ? [facility] [address] [facility] ? [facility] ? [facility] * Preprocedure Instructions - Evita Sánchez RN - 02/13/2025 1:18 PM EDT Home Medication Instructions Current Medications Medication Instructions ascorbic acid (vitamin C) 1000 MG tablet Hold day of surgery buPROPion (Wellbutrin) 75 MG tablet Take morning of surgery Ferrous Sulfate (IRON PO) Hold day of surgery HYDROcodone-acetaminophen (Comptche) 5-325 MG tablet Take as needed hydroxychloroquine [...] card, photo ID, along with power of civil attorney, guardianship or advanced directives if applicable Do not bring money, jewelry or other valuables Hibiclens bathing instructions reviewed if applicable Notify surgeon of fever, illness, any changes or if you decide not to have surgery Registration will be on the first floor of [facility]) at the end of the bridge from the parking garage, the hallway on the RIGHT. Parking Garage Address: [address] [place] [address]. * PAT Phone Note - Evita Sánchez [...] [facility] [address] [place] [id number] 05/14/2025 10:40 AM EST Office Visit [facility] [address] [place] [address] Lauren Christine, ESTELLE [address] [place] [address] documented as of this encounter Goals Goal Patient Goal Type Associated Problems Recent Progress Patient-Stated? Author Autogenerat ed Goal Care Plan Autogenerated Problem No Esther Oconnell documented as of this encounter Procedures Procedure [...] in the patient's chart for the findings. Ochoa Matias MD IMG FLUOROSCOPY PROCEDURES Final Result IMAGING documented in this encounter Visit Diagnoses Diagnosis Other hydronephrosis- Primary Other hydronephrosis HTN (hypertension) Unspecified essential hypertension Sleep apnea Unspecified sleep apnea Smoker Tobacco use disorder SLE (systemic lupus erythematosus) ([facility]) Systemic lupus erythematosus documented in this encounter [...] 1934, Routine, Holding - Preprocedure, line care documented in this encounter Active and Recently Administered Medications Times are shown in EDT. Scheduled Medication Order 02/15/2025 02/16/2025 02/17/2025 ceFAZolin (Ancef) injection 2 g (COMPLETED) 2 g, Intravenous, Once, 1 dose, On Mon02/17/25 at 1515, Routine, Anesthesia Intraprocedure 1424 (Given - Provid er: Bisi Restrepo CRNA, DNP) lactated Ringer's infusion 20 mL/hr, Intravenous, [...] documented in this encounter Additional Health Concerns Active Problems Noted Date Diagnosed Date Autogenerated Problem 02/18/2025 Assessment Noted Time PHQ-9 Depression Total Score: 0 02/06/20 11:38 AM EDT A fall risk assessment has been complete d for the patient 02/05/2025 11:38 AM EDT A Body Mass Index follow-up plan has been documented for the patient 02/05/2025 12:06 PM EDT documented as of this encounter Care Teams Information Technology Audit Manager Relationship Specialty Start Date End Date Luis Hatfield MD [address] [place] [address] PCP - General 07/24/24 documented as of this encounter
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
--- OUTSIDE RECORDS SUMMARY | 2025-02-17 14:07 | XMS_ITS | Encounter Summary ---
Author Organization Healthcare Address [address] [place] [address] Care Team Providers Care Deputy Court Clerk Name Role Phone Luis Hatfield MD Primary Care Provider [phone] Reason for Visit * Auth/Cert (Routine) Specialty Diagnoses / Procedures Referred By Stephen parks Referred To Contact Diagnoses Other hydronephrosis Other hydronephrosis [N13.39] Procedures SD PLMT NEPHROSTOMY CATH PRQ NEW ACCESS RS&I CHG X-RAY RETROGRADE PYELOGRAM SD CYSTOSCOPY,INSERT URETERAL STENT CYSTOSCOPY, WITH URETERAL STENT REPLACEMENT TURBT, USING BIPOLAR CAUTERY PROBE, WITH SALINE IRRIGATION Ochoa Matias MD [address] [facility] [address] [place] [address] Phone: tel: fax: [facility] A OPERATING ROOM [address] [place] [address] Phone: tel: Referral ID Status Reason Start Date Expiration Date Visits Re quested Visits Authorized [id number] 1 1 Encounter Details Date Type Department Care Team (Late st Contact Info) Description 02/17/2025 2:07 PM EDT Anesthesia Event [facility] A OPERATING ROOM [address] [place] [address] Bisi Restrepo CRNA, CAMRYN [address] [place] [address] Perla Dupont CRNA [address] [place] [address] Anesthesia Record Procedure Summary Procedure [...] Forearm; Site Prep: Chlorhexidine ; Local Anesth: [place]; Technique: Anatomical landmarks; Inserted by: rosemary houston [...] No change to dentition. ; Placed by: JANITORIAL SUPERVISOR; Removal Date: 02/17/25; Removal Time: 1517 02/17/25 1417 by Bisi Restrepo CRNA, [facility] 02/17/25 1517 by Lucie Cotton MD Ureteral [...] any time in the past 12 m [facility], were you homeless or living in a [...] drink first t kimberlyn in the morning (EYE-YARD LOADER OPERATOR) to steady your nerves or to get rid of a hangover? 0 09/11/2024 CAGE Questionnaire Score 0 025 Utilities Answer Date Recorded In the past 12 months has th e electric, gas, oil, or water [employer] threatened to shut off services in your [...] and Staff Patient location during procedure: [place] JANITORIAL SUPERVISOR: Bisi Restrepo CRNA, DNP Performed: DELROY Patient [...] 1:11 PM EDT Anesthesiologist: Joey Meier MD JANITORIAL SUPERVISOR: Bisi Restrepo CRNA, DNP Patient: Corrie Rosenthal [facility] Procedure Information Date/Time: 02/17/25 1326 Procedures: CYSTOSCOPY, WITH URETERAL STENT REPLACEMENT (Bilateral) TURBT, USING BIPOLAR CAUTERY PROBE, WITH SALINE IRRIGATION (Bilateral) Location: [facility] / [facility] 01-27-25 Hct [...] Sulfate (IRON PO) 1 tablet, Daily HYDROcodone-acetaminophen ([place]) 5-325 MG tablet 5-10 mg of hydrocodone, [...] ABG No results found for: PHART , DUM6VDJ , PO2ART , SO2ART , BEART , QZF0ZPG , HCTART , SODIUMART , POTASSIUMART , POCTCL , POCGLU , IONCALART , LACTATE Lab Results Component Value Date HCTSYR 25.6 (L) 07/22/2024 KSYR 4.2 07/22/2024 CLSYR 102 07/22/2024 GLUSYR 97 07/22/2024 CAION 4.8 07/22/2024 ECHO No echocardiogram results found for the past 12 months PFTs No results found for: LTY8WUD , HFH1XMKJ , ELJ7EHC , FVCPRED BP Readings from Last 5 [...] [2] Past Medical History: Diagnosis Date Cancer ([facility]) bladder cancer - CURRENTLY ON CHEMO - LAST DOSE 02/13/25 Dental disease partial on bottom - top dentures History of blood transfusion 06/2024 no reactions Hyperlipidemia Hypertension Lupus (systemic lupus erythematosus) ([facility]) Other specified fracture of unspecified pubis, initial encounter for closed fracture ([facility]) Pubic ramus fracture Other specified health [...] Description 03/07/2025 10:30 AM EDT Appointment P[facility] Interventional Radiology [address] [place] [address] 05/14/2025 10:40 AM EST Office Visit [facility]cology [facility] [address] [place] [address] Lauren Christine PA [address] [facility] [address] [place] [address] documented as of this encounter Goals Goal Patient Goal Type Associated Problems Recent Progress Patient-Stated? Author Autogenerat ed Goal Care Plan Autogenerated Problem No AnishEsther documented as of this encounter Procedures Procedure Name Priority Date/Time Associated Diagnosis Comments PB ANESTHESIA PLACEHOLDER Routine 02/17/2025 2:17 PM EDT SD AN ELECTIVE ENDOTRACHEAL AIRWAY Routine 02/17/2025 2:17 PM EDT documented in this encounter Results * SD AN ELECTIVE ENDOTRACHEAL AIRWAY, PB ANESTHESIA PLACEHOLDER (02/17/2025 2:17 PM EDT) Narrative Bisi Restrepo CRNA, DNP - 02/17/2025 2:17 PM EDT Bisi Restrepo CRNA, DNP 02/17/2025 2:25 PM Airway Date/Time: 02/17/2025 2:17 PM Reason: elective Airway not difficult General Information and Staff Patient location during procedure: [place] JANITORIAL SUPERVISOR: Bisi Restrepo CRNA, DNP Performed: JANITORIAL SUPERVISOR Patient Condition Indications for airway management: anesthesia [...] as of this encounter Care Teams Deputy Court Clerk Relationship Specialty Start Date End Date Luis Hatfield MD [facility] [place] [address] PCP - General 07/24/24 documented as of this encounter
[2025-02-20 09:17] LABS: Hematocrit 36.6 % (37.0-47.0); Hemoglobin 12.4 g/dL (12.2-16.2); Immature Granulocytes % 0.4 %; Mean Corpuscular HGB Conc 33.9 g/dL (31.8-35.4); Mean Corpuscular Hemoglobin 30.5 pg (27.0-31.2); Mean Corpuscular Volume 90.1 fl (81-99); Nucleated Red Blood Cells % 0 %; Platelet Count 376 K/mm3 (142-424); Red Blood Count 4.06 M/mm3 (4.20-5.40); Red Cell Distribution Width-SD 57.7 fL; White Blood Count 7.4 K/mm3 (4.8-10.8)
--- OUTSIDE RECORDS SUMMARY | 2025-02-20 09:17 | XMS_ITS | Encounter Summary ---
Author Organization Healthcare Address [address] [place] [address] Care Team Providers Care Maid Supervisor Name Role Phone Luis Hatfield MD Primary Care Provider [phone] Encounter Details Date Type Department Care Team (Late st Contact Info) Description 02/14/2025 Telephone [facility] Mult[facility] Oncology Clinic [address] [place] [address] Ochoa Matias MD [address] [place] [address] Social History Tobacco Use Types Packs/Day Years Used Date Smoking Tobacco: Some Days Cigarettes Smokeless Tobacco: Never Alcohol Use Standard Drinks/Week [...] drink first t kimberlyn in the morning (EYE-TAXI PROPRIETOR) to steady your nerves or to get [...] encounter Miscellaneous Notes * Telephone Encounter - Mallorie Luna - 02/14/2025 2:07 PM EDT Called & spoke to pt. Confirmed arrival time of 12:00pm for surgery Saturday 02/17 w Matias. Pt received arrival time call from the OR moments before I spoke with her. She's aware of & agreeableto arrival time for upcoming surgery. Pt verbalized understanding & had no further questions for me at this time. * Telephone Encounter - Monserrat Tay RN - 02/14/2025 2:06 PM EDT medical appointment scheduler reached out to patient who was contacted by hospital to notify of arrival time. No further questions at this time. * Telephone Encounter - Maury Lebron - 02/14/2025 1:10 PM EDT Patient Phone Message Reason for Call: Ms. Pritchard is calling to see what time [facility] Best contact number and optimal time of day to reach caller: [phone] Note: Please do not reply to this [...] Appointment [facility] A Interventional Radiology [address] [place] [address] 05/14/2025 10:40 AM EST Office Visit [facility]cology [facility] [address] [place] [address] Lauren Christine PA [address] [place] [address] documented as of this encounter Goals Goal [...] documented as of this encounter Care Teams Maid Supervisor Relationship Specialty Start Date End Date Luis Hatfield MD [address] [facility] [address] [place] [address] PCP - General 07/24/24 documented as of this encounter
--- OUTSIDE RECORDS SUMMARY | 2025-02-20 09:17 | XMS_ITS | Encounter Summary ---
Author Organization [facility] Address [address] [id number] Care Team Providers Care Placement Manager Name Role Phone Luis Hatfield MD Primary Care Provider [phone] Encounter Details Date Type Department Care Team ([facility] Contact Info) Description 07/12/2024 Telephone [facility] RHEUMATOLOGY [address] [address] Santiago Anders MD [address] [phone] Social History Tobacco Use Types Packs/Day Years [...] Visit [facility] RHEUM[facility]Y [address] [address] Vicente Wells DO [address] [address] documented as of this encounter Visit Diagnoses Not on filedocumented in this encounter Care Teams Placement Manager Relationship Specialty Start Date End Date Luis Hatfield MD [address] [facility] [address] [place] [id number] PCP - General Family Medicine 06/13/24 documented as of this encounter
--- OUTSIDE RECORDS SUMMARY | 2025-02-20 09:17 | XMS_ITS | Encounter Summary ---
Author Organization [facility] Address [address] [address] Care Team Providers Care Game Trapper Name Role Phone Luis Hatfield MD Primary Care Provider [phone] Reason for Visit * Reason Onset Date Comments [facility] Nurse Liaison call 02/06/2025 Encounter Details Date Type Department Care Team (Late st Contact Info) Description 02/06/[address] [facility] Multidisciplinary Oncology Clinic [address] [place] [address] [place] [address] [facility] Nurse Liaison call Social History Tobacco [...] any time in the past 12 m [facility], were you homeless or living in a long-term (including now)? No 09/23/2024 CAGE ASSESSMENT Answer [...] drink first t kimberlyn in the morning (EYE-MID LEVEL DEVELOPER) to steady your nerves or to get rid of a hangover? 0 09/11/2024 CAGE Questionnaire Score 0 025 Utilities Answer Date Recorded In the past 12 months has th e [employer], gas, oil, or water company threatened to [...] Pritchard : 1955 Date: 02/06/25 Referred to [facility] by: Dr. Magdiel Henderson Affiliate Site: [facility] Provided: Pre/Post Appointment Phone Call Educated On: [facility] Nurse Liaison/Psych Oncology Services Patient was referred to [facility] by her local medical oncologist for a urology follow up. [facility] Nurse Liaison contacted the patient for a pre and post appointment phone call. Explained liaison services aswell as other resources at [facility] including Psych Oncology services. Patient well established with Dr. Matias and aware of resources. Patient has clinic number and was given liaison contact information and encouraged to call with any questions, needs or concerns. Sridevi Ellis RN [facility] documented in this encounter Plan of Treatment Upcoming Encounters Date Type Department Care Team (Late st Contact Info) Description 03/07/2025 10:30 AM EDT Appointment [facility] A Interventional Radiology [address] [place] [address] 05/14/2025 10:40 AM EST Office Visit [facility]cology [facility] [address] [place] [address] Lauren Christine PA [address] [facility] [address] [place] [address] documented as of this encounter Visit Diagnoses [...] documented as of this encounter Care Teams Game Trapper Relationship Specialty Start Date End Date Luis Hatfield MD [address] [place] [address] PCP - General 07/24/24 documented as of this encounter
--- OUTSIDE RECORDS SUMMARY | 2025-02-20 09:17 | XMS_ITS | Clinical Summary ---
Author Organization [facility] Address [address] [place] [address] Care Team Providers Care Museum Guide Name Role Phone Luis Hatfield MD Primary Care Provider [phone] Allergies Active Allergy Reactions Criticality Noted Date [...] DNA 13.0 (<4.0), Centromere and Chromatin normal, TUCKPOINTER CLEANER CAULKER and SCL 70 normal, Christine normal, SSA and SSB normal, total bilirubin 1.4, Glucose 117, CMP was ok otherwise, CCP negative, CRP Normal, RF 110 (<14.0 normal), ESR normal, TSH normal * Medications/treatments/interventions tried include: Tylenol, meloxicam, Advil, CBD oil, Tumeric, Aspirin, Plaquenil, she has seen podiatry (Miky Steele DPM), she has seen maintenance painter (Dr. Jed Trevino), Ketamine, gabapentin, She [...] DNA 13.0 (<4.0), Centromere and Chromatin normal, TUCKPOINTER CLEANER CAULKER and SCL 70 normal, Christine normal, SSA and SSB normal, total bilirubin 1.4, Glucose 117, CMP was ok otherwise, CCP negative, CRP Normal, RF 110 (<14.0 normal), ESR normal, TSH normal * Medications/treatments/interventions tried include: Tylenol, meloxicam, Advil, CBD oil, Tumeric, Aspirin, Plaquenil, she has seen podiatry (Miky Steele DPM), she has seen maintenance painter (Dr. Jed Trevino), Ketamine, gabapentin, She [...] DNA 13.0 (<4.0), Centromere and Chromatin normal, TUCKPOINTER CLEANER CAULKER and SCL 70 normal, Christine normal, SSA and SSB normal, total bilirubin 1.4, Glucose 117, CMP was ok otherwise, CCP negative, CRP Normal, RF 110 (<14.0 normal), ESR normal, TSH normal * Medications/treatments/interventions tried include: Tylenol, meloxicam, Advil, CBD oil, Tumeric, Aspirin, Plaquenil, she has seen podiatry (Miky Steele DPM), she has seen maintenance painter (Dr. Jed Trevino), Ketamine, gabapentin, She [...] Department Care Team Description 01/28/2025 Results Follow-Up [facility] RHEUMATOLOGY [address] [place] [address] Nguyen Romero APRN 12/26/2024 10:30 AM EDT Office Visit [facility] RHEUMATOLOGY [address] [place] [address] Nguyen Romero APRN Seropositive rheumatoid arthritis (Primary Dx); Systemic lupus erythematosus, unspecified SLE type, unspecified organ involvement status; High risk medication use; Primary osteoarthritis involving multiple joints; NSAID long-term use 12/26/2024 Results Follow-Up [facility] RHEUMATOLOGY [address] [place] [phone] Vicente Wells, 12/26/2024 Results Follow-Up [facility] RHEUMATOLOGY [address] [phone] Vicente Wells, 12/26/2024 Travel from Last 3 [...] Office Visit [facility] RHEUMATOLOGY [address] [address] Vicente Wells, DO [address] [address] Health Maintenance Due Date Last Done Comments DXA SCAN 1955 MAMMOGRAM 1994 COLOGUARD 1999 COLON CANCER SCREENING 5 YEA R SIGMOIDOSCOPY 1999 CT COLONOGRAPHY 1999 FECAL OCCULT BLOOD TEST 1999 FIT Testing (1 year) 1999 TDAP/TD VACCINES (2 - Tdap) 08/15/2006 08/15/1996 ZOSTER VACCINE (2 of 2) 04/16/2020 02/20/2020 ANNUAL WELLNESS VISIT 10/31/2023 COVID-19 Vaccine (1 - season) 2025 INFLUENZA VACCINE 03/12/2025 Pneumococcal Vaccine 50+ (2 [...] [facility] (AMBUL[facility]ORY) [address] [place] [address], [place] [phone] from Last 3 Months Insurance [employer] ADVANTAGE PPO Care Teams Museum Guide Relationship Specialty Start Date End Date Luis Hatfield MD [address] [facility] [address] [place] [phone] PCP - General Family Medicine 06/13/24
--- OUTSIDE RECORDS SUMMARY | 2025-02-20 09:17 | XMS_ITS | Encounter Summary ---
Author Organization [facility] Address [address] [place] [address] Care Team Providers Care Automotive Metalsmith Name Role Phone Luis Hatfield MD Primary Care Provider [phone] Encounter Details Date Type Department Care Team [...] first t kimberlyn in the morning (EYE-SENIOR ENGINEERING TEAM LEADER) to steady your nerves or to get rid of a hangover? 0 09/11/2024 CAGE Questionnaire Score 0 025 Utilities Answer Date Recorded In the past 12 months has th e [employer], gas, oil, or water company threatened to [...] Score 0 02/05/2025 11:38 AM EDT Zina Shcultz * Question Answer Date of Assessment Author [...] all 02/05/2025 11:38 AM EDT Zina Schultz Thoughts that you would be b milena [...] Not difficult at all 02/05/2025 11:38 AM EDT Zina Schultz documented as of this encounter Plan of Treatment Upcoming Encounters Date Type Department Care Team (Late st Contact Info) Description 03/07/2025 10:30 AM EDT Appointment [facility] A Interventional Radiology [address] [place] [address] 05/14/2025 10:40 AM EST Office Visit [facility]id[facility] Oncology [facility] [address] [place] [address] Lauren Christine PA [address] [place] [address] documented as of this encounter Visit Diagnoses [...] as of this encounter Care Teams Automotive Metalsmith Relationship Specialty Start Date End Date Luis Hatfield MD [id number] [place] [address] PCP - General 07/24/24 documented as of this encounter
--- OUTSIDE RECORDS SUMMARY | 2025-02-20 09:17 | XMS_ITS | Encounter Summary ---
Author Organization [facility] Address [address] [place] [address] Care Team Providers Care Middle School English Teacher Name Role Phone Luis Hatfield MD Primary Care Provider Encounter Details Date Type Department Care Team (Late Contact Info) Description 01/28/2025 Results Follow-Up [facility] RHEUMATOLOGY [address] [address] Nguyen Romero APRN [address] [phone] Social History Tobacco Use Types Packs/Day Years [...] Description 07/09/2025 10:45 AM EST Office Visit [facility] RHEUMATOLOGY [address] [address] Vicente Wells DO [address] [phone] documented as of this encounter Visit Diagnoses Not on filedocumented in this encounter Care Teams Middle School English Teacher Relationship Specialty Start Date End Date Luis Hatfield MD [address] [address] [address] [facility] [address] [place] [address] PCP - General Family Medicine 06/13/24 documented as of this encounter
--- OUTSIDE RECORDS SUMMARY | 2025-02-20 09:17 | XMS_ITS | Encounter Summary ---
Author Organization Healthcare Address [address] [place] [address] Care Team Providers Care Training Development Manager Name Role Phone Luis Hatfield MD Primary Care Provider [phone] Encounter Details Date Type Department Care Team (Late st Contact Info) Description 02/11/2025 Telephone [facility] [address] [place] [address] Ochoa Matias MD [address] [place] [address] Social History Tobacco Use Types [...] time in the past 12 m [facility], were you homeless or living [...] drink first t kimberlyn in the morning (EYE-GALLERY HOST) to steady your nerves or to get [...] Appointment [facility] A Interventional Radiology [address] [place] [address] 05/14/2025 10:40 AM EST Office Visit [facility] [address] [place] [address] Lauren Christine PA [address] [place] [phone] documented as of this encounter Goals Goal [...] documented as of this encounter Care Teams Training Development Manager Relationship Specialty Start Date End Date Luis Hatfield MD [address] [facility] [address] [place] [address] PCP - General 07/24/24 documented as of this encounter
--- OUTSIDE RECORDS SUMMARY | 2025-02-20 09:17 | XMS_ITS | Encounter Summary ---
Author Organization [facility] Address [address] [address] Care Team Providers Care Willower Name Role Phone Luis Hatfield MD Primary Care Provider [phone] Encounter Details Date Type Department Care Team (Late Contact Info) Description 07/12/2024 Telephone [facility] RHEUMATOLOGY [address] [address] Vicente Wells DO [address] [phone] Social History Tobacco Use Types Packs/Day Years [...] Description 07/09/2025 10:45 AM EST Office Visit [facility] RHEUMATOLOGY [address] [address] Vicente Wells DO [address] [id number] documented as of this encounter Visit Diagnoses Not on filedocumented in this encounter Care Teams Willower Relationship Specialty Start Date End Date Luis Hatfield MD [address] [facility] [address] [place] [address] PCP - General Family Medicine 06/13/24 documented as of this encounter
--- OUTSIDE RECORDS SUMMARY | 2025-02-20 09:17 | XMS_ITS | Encounter Summary ---
Author Organization [facility] Address [address] [place] [address] Care Team Providers Care Piano Player Name Role Phone Luis Hatfield MD Primary Care Provider [phone] Encounter Details Date Type Department Care Team (Latest Contact Info) Description 02/17/2025 Travel Social History Tobacco Use Types Packs/Day [...] any time in the past 12 m [facility], were you homeless or living in a [...] drink first t kimberlyn in the morning (EYE-WALL COVERING CONTRACTOR) to steady your nerves or to get rid of a hangover? 0 09/11/2024 CAGE Questionnaire Score 0 025 Utilities Answer Date Recorded In the past 12 months has th e Hip[employer], gas, oil, or water company threatened to [...] Risk Indicated 02/17/2025 12:51 PM EDT Kelli Houston, RN * Question Answer Date of Assessment Author 1. Wish to be (Past 1 Month) No 025 12:51 PM EDT Kelli Houston, RN 2. Non-Specific Active Suici shiraz Thoughts (Past 1 Month) No 02/17/2025 12:51 PM EDT Jillian Houston RN 6. Suicidal Behavior (Lifetime) No 12:51 PM EDT Kelli Houston, RN documented as of this encounter Plan of Treatment Upcoming Encounters Date Type Department Care Team (Late st Contact Info) Description 03/07/2025 10:30 AM EDT Appointment [facility] [address] [place] [phone] 05/14/2025 10:40 AM EST Office [facility] [address] [place] [address] Lauren Christine PA [address] [place] [phone] documented as of this encounter Goals Goal [...] documented as of this encounter Care Teams Piano Player Relationship Specialty Start Date End Date Luis Hatfield MD 1210 [facility] [address] [place] [address] PCP - General 07/24/24 documented as of this encounter
--- OUTSIDE RECORDS SUMMARY | 2025-02-20 09:17 | XMS_ITS | Encounter Summary ---
Author Organization Healthcare Address [address] [place] [address] Care Team Providers Care Digital Photo Printer Name Role Phone Luis Hatfield MD Primary Care Provider [phone] Encounter Details Date Type Department Care Team (Late st Contact Info) Description 08/19/2024 Lab Requisition [facility] [address] [place] [address] Ochoa Matias MD [address] [place] [address] Malignant neoplasm of bladder, unspecified (CMS/HCC) Social [...] [place] [facility] No 07/24/2024 CAGE ASSESSMENT Answer [...] drink first t kimberlyn in the morning (EYE-STAGECRAFT TEACHER) to steady your nerves or to get [...] Appointment [facility] [address] [place] [address] 05/14/2025 10:40 AM EST Office Visit [facility] [address] [place] [address] Lauren Christine, PA [address] [place] [address] documented as of this encounter Procedures Procedure [...] name Selwyn Geller 09/05/2024 7:35 AM EDT [facility] Comment:[id number], A3 Test Result see scan 09/05/2024 7:35 AM EDT [facility] See Scanned Result 09/05/2024 7:35 AM EDT [facility] Tissue 07/23/2024 1:18 PM EST 08/19/2024 1:48 PM EDT us Ochoa Matias MD LAB REF LAB BLOOD AND FLUID ORD Final Result [facility] [address] [place] [address] * - AP Miscellaneous Test (07/23/2024 1:18 PM EST) Test name Viviane Keith 09/09/2024 8:04 AM EDT [facility] Comment:[id number], A3 Test Result see scan 09/09/2024 8:04 AM EDT [facility] See Scanned Result 09/09/2024 8:04 AM EDT [facility] Tissue 07/23/2024 1:18 PM EST 08/19/2024 1:48 PM EDT us Ochoa Matias MD LAB REF LAB BLOOD AND FLUID ORD Final Result [facility] [address] [place] [address] documented in this encounter Visit Diagnoses Diagnosis Malignant neoplasm of bladder, unspecified (CMS/HCC) documented in this encounter Additional Health Concerns Assessment Noted Time A Body Mass Index follow-up plan has been documented for the patient 07/25/2024 1:21 PM EST documented as of this encounter Care Teams Digital Photo Printer Relationship Specialty Start Date End Date Luis Hatfield MD [facility] [address] [id number] PCP - General 07/24/24 documented as of this encounter
--- OUTSIDE RECORDS SUMMARY | 2025-02-20 09:18 | XMS_ITS | Encounter Summary ---
Author Organization [facility] Address [address] [place] [address] Care Team Providers Care Shampooer Name Role Phone Luis Hatfield MD Primary Care Provider [phone] Encounter Details Date Type Department Care Team (Late Contact Info) Description 12/26/2024 Results Follow-Up [facility] RHEUMATOLOGY [address] [address] Vicente Wells DO [address] [address] Social History Tobacco Use Types Packs/Day Years [...] AM EST Office Visit [facility]HE[facility] [address] [address] Vicente Wells DO [address] [phone] documented as of this encounter Visit Diagnoses Not on filedocumented in this encounter Care Teams Shampooer Relationship Specialty Start Date End Date Luis Hatfield MD [address] [place] [address] PCP - General Family Medicine 06/13/24 documented as of this encounter
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
--- OUTSIDE RECORDS SUMMARY | 2025-02-20 09:19 | XMS_ITS | Encounter Summary ---
Author Organization [facility] Address [address] [id number] Care Team Providers Care Wildlife Enforcement Major Name Role Phone Luis Hatfield MD Primary Care Provider [phone] Encounter Details Date Type Department Care Team [...] Office Visit [facility] RHEUMATOLOGY [address] [phone] Vicente Wells DO [address] [address] documented as of this encounter Visit Diagnoses Not on filedocumented in this encounter Care Teams Wildlife Enforcement Major Relationship Specialty Start Date End Date Luis Hatfield MD [address] [place] [facility] [address] [place] [address] PCP - General Family Medicine 06/13/24 documented as of this encounter
--- OUTSIDE RECORDS SUMMARY | 2025-02-20 09:19 | XMS_ITS | Encounter Summary ---
Author Organization [facility] Address [address] [place] [address] Care Team Providers Care Tube Draw Helper Name Role Phone Luis Hatfield MD Primary Care Provider [phone] Encounter Details Date Type Department Care Team (Late Contact Info) Description 12/26/2024 Results Follow-Up [facility] RHEUMATOLOGY [address] [address] Vicente Wells DO [address] [address] Social History Tobacco Use Types Packs/Day Years [...] Visit [facility] RHEUM[facility] [address] [address] Vicente Wells DO [address] [id number] documented as of this encounter Visit Diagnoses Not on filedocumented in this encounter Care Teams Tube Draw Helper Relationship Specialty Start Date End Date Luis Hatfield MD [address] [place] [address] PCP - General Family Medicine 06/13/24 documented as of this encounter
--- OUTSIDE RECORDS SUMMARY | 2025-02-20 09:20 | XMS_ITS | Encounter Summary ---
Author Organization Healthcare Address [address] [place] [address] Care Team Providers Care Tube Room Supervisor Name Role Phone Luis Hatfield MD Primary Care Provider [phone] Encounter Details Date Type Department Care Team (Late st Contact Info) Description 01/27/2025 Telephone [facility] [address] [place] [address] Ochoa Matias MD [address] [place] [address] Social History Tobacco Use Types Packs/Day Years [...] drink first t kimberlyn in the morning (EYE-UNITIZER) to steady your nerves or to get [...] ED for evaluation. * Telephone Encounter - Avril Margareth - 01/27/2025 9:34 AM EDT Patient Phone Message Reason for Call: Ms. Pritchard is not having any output in the urostomy bag. When she feels pressure and the urge to urinate, she can go normally and nothing goes in to the bag. Best contact number and optimal time of day to reach caller: [phone] Note: Please do not reply to this message. Follow-up communication and further actions as a result of this message need to be communicated with the patient directly, if the patient is not active onMyChart. If the patient is active on MyChart, they will receive notification of the communication/outcome via [employer]. documented in this encounter Plan of Treatment Upcoming Encounters Date Type Department Care Team (Late st Contact Info) Description 03/07/2025 10:30 AM EDT Appointment [facility] Inter[facility] Radiology [address] [place] [address] 05/14/2025 10:40 AM EST Office Visit [facility] [address] [place] [address] Lauren Christine PA [address] [place] [address] documented as of this encounter Visit Diagnoses [...] documented as of this encounter Care Teams Tube Room Supervisor Relationship Specialty Start Date End Date Luis Hatfield MD [facility] [place] [address] PCP - General 07/24/24 documented as of this encounter
--- OUTSIDE RECORDS SUMMARY | 2025-02-20 09:20 | XMS_ITS ---
Author Organization [facility] Address [address] [place] [address] Care Team Providers Care Welder Repair Name Role Phone Luis Hatfield MD Primary Care Provider [phone] Active Problems Problem Noted Date Diagnosed Date HTN (hypertension) 02/17/2025 Sleep apnea 02/17/2025 Smoker 02/17/2025 SLE (systemic lupus erythematosus) 02/17/2025 Tobacco use disorder 02/05/2025 Second hand smoke [...] Automatic Entry Manual Entr y Fluoro Time 6.353 minutes 4.953 minutes 1.4 minutes Air Kerma 114.44 mGy 87.44 mGy 27 mGy Air Kerma Area Product 943.1 Gym 585.63 Gym 357.47 Gym Resolved Problems Problem Noted Date Diagnosed Date Resolved Date VINCENZO (acute kidney injury) 09/11/2024 Acute blood loss anemia 07/22/202407/13 Bladder mass 07/22/2024 07/25/2024
--- OUTSIDE RECORDS SUMMARY | 2025-02-20 09:20 | XMS_ITS | Clinical Summary ---
Author Organization [facility] Address [address] [place] [address] Care Team Providers Care Plug Grower Name Role Phone Luis Hatfield MD Primary Care Provider [phone] Allergies Active Allergy Reactions Criticality Noted Date Comments Codeine Nausea And Vomiting,Nausea,Vomiting Low 09/19/2017 codeine Medications irbesartan (Avapro) 300 MG tablet Take 1 tablet by mouth daily. Active multivitamin (Theragran) tablet Take 1 tablet by mouth in the morning. Active Turmeric (QC TUMERIC COMPLEX PO) Take 1 tablet by mouth in the morning. Active Probiotic Product (PROBIOTIC DAILY PO) Take 1 tablet by mouth in the morning. Active hydroxychloroq uine (Plaquenil) 200 MG tablet Take 1 tablet by mouth 2 times a day. Active dexamethasone (Decadron) 4 MG tablet Take [...] time each day. 4 Active HYDROcodone-ac etaminophen ([place]) 5-325 MG tablet Take 1-2 tablets by mouth every 8 hours as needed. Active ascorbic acid (vitamin C) 1000 MG tablet Take 1 tablet by mouth daily. Active phenazopyridin e (Pyridium) 100 MG tablet Take 2 tablets by mouth 3 times a day as needed for pain, discomfort or irritation for up to 3 days. 10 tablet 5 02/21/20 25 Active ibuprofen 600 MG tablet Take 1 tablet by mouth every 6 hours as needed for mild pain for up to 10 days. 15 tablet 5 02/28/20 25 Active acetaminophen (Tylenol) 500 MG tablet Take 2 tablets by mouth every 6 hours as needed for pain. 20 tablet 5 Active cefadroxil (Duricef) 500 MG capsuleIndicat ions:UTI [...] Encounters Date Type Department Care Team Description 02/17/2025 2:07 PM EDT Anesthesia Event [facility] [address] [place] [address] Bisi Restrepo, DELROY, Perla Ferrell CRNA 02/17/2025 1:26 PM EDT - 02/17/2025 3:36 PM EDT Surgery [facility] [address] [place] [address] Ochoa Matias MD CYSTOSCOPY, WITH URETERAL STENT REPLACEMENT, WITH NEPHROSTOMY TUBE REMOVAL 02/17/2025 11:28 AM EDT - 02/17/2025 3:25 PM EDT Hospital Encounter [facility] [address] [place] [address] Ochoa Matias MD Other hydronephrosis (Primary Dx) Discharge Disposition: Home or Self Care 02/17/2025 Travel 02/14/2025 Telephone [facility] [address] [place] [phone] Ochoa Matias MD 02/11/2025 Telephone [facility] [address] [place] [address] Ochoa Matias MD 02/06/2025 Telephone [facility] [address] [place] [phone] Sridevi Ellis Nurse Liaison call 02/05/2025 11:45 AM EDT Office Visit [facility] [address] [place] [phone] Ochoa Matias MD Malignant neoplasm of urinary bladder, unspecified site (CMS/HCC) (Primary Dx) 02/05/2025 Travel 01/27/2025 12:05 PM EDT - 01/27/2025 7:02 PM EDT Emergency [facility] Emergency Department [address] [place] [phone] Karolyn Toro MD Owens, Susan E, MD UTI (urinary tract infection), bacterial (Primary Dx); Malfunction of nephrostomy tube (CMS/HCC); Hydronephrosis, unspecified hydronephrosis type Discharge Disposition: Home or Self Care 01/27/2025 Travel 01/27/2025 Telephone [facility] [address] [place] [address] Ochoa Matias MD 12/20/2024 7:18 AM EDT - 12/20/2024 11:59 PM EDT Hospital Encounter [facility] Interventional Radiology [address] [place] [phone] Aida Liliana Malignant neoplasm of urinary bladder, unspecified site (CMS/HCC) Discharge Disposition: Home or Self Care 12/20/2024 Travel 12/02/2024 Telephone [facility] [address] [place] [phone] Cecille Escobedo RN 11/26/2024 Telephone [facility] [address] [place] [phone] Ochoa Matias MD [facility] from Last 3 Months Family History Medical History Relation Name Comments Anesthesia problems Neg Hx Social History Tobacco Use Types Packs/Day Years [...] any time in the past 12 m [facility], were you homeless or living in [...] drink first t kimberlyn in the morning (EYE-PSYCHOLOGY ASSOCIATE) to steady your nerves or to get rid of a hangover? 0 09/11/2024 CAGE Questionnaire Score 0 025 Utilities Answer Date Recorded In the past 12 months has th e [employer], gas, oil, or water company threatened to [...] Mass Index 25.42 02/17/2025 12:30 PM EDT Plan of Treatment Upcoming Encounters Date Type Department Care Team (Late st Contact Info) Description 03/07/2025 10:30 AM EDT Appointment [facility] Interventional Radiology [address] [place] [address] 05/14/2025 10:40 AM EST Office Visit [facility] [address] [place] [address] Lauren Christine PA [address] [facility] [address] [place] [address] Health Maintenance Due Date Last Done Comments [facility]-Bone Density Scan 1955 [facility]-Medicare Annual Wellness (AWV) 1955 [facility]-/Child/Adol SDOH Screenings 1955 [facility]-CVFZT-15 Vaccine (#1) 1959 [facility]-DTaP,Tdap,and Td Vaccines (1 [...] [employer] Implanted Type Area Armhole Sewer Device Identifier Shelf Expiration Date Model / Serial / Lot Stent Ureteral Double Pigtail Pos 6fr 26cm - S. - [id number] Implanted:Qty: 1 on 07/23/2024 by Ocoha Matias MD at [facility] Explanted:06/2024 by Ochoa Matias MD (Quantity not on file) Stent N/A: [employer]-[id number] 03/11/2026 [id number] / . / [id number] Description:Patient states h ad stent taken out by Dr. Matias summer Stent Ureteral Double Pigtail Pos 6fr 24cm - [id number] Implanted:Qty: 1 on 02/17/2025 by Ochoa Matias MD at [facility] Right: [employer]-[id number] 12/18/2026 [id number] 0 / / [id number] Stent Ureteral Double Pigtail Pos 6fr 24cm - [id number] Implanted:Qty: 1 on 02/17/2025 by Ochoa Matias MD at [facility] Left: [employer]-[id number] 12/18/2026 [id number] / / [id number] Procedures Procedure Name Priority Date/Time Associated Diagnosis Comments FL LESS THAN 1 HOUR (NON-REPORTABLE) Routine 02/17/2025 3:18 PM EDT PB ANESTHESIA PLACEHOLDER Routine 02/17/2025 2:17 PM EDT NE AN ELECTIVE ENDOTRACHEAL AIRWAY Routine 02/17/2025 2:17 PM EDT CYSTOSCOPY, WITH URETERAL STENT REPLACEMENT 02/17/2025 1:54 PM EDT Other hydronephrosis SEND CLARISSA MESSAGE STAT 01/27/2025 3: 37 [...] Recently Relevant to Health Maintenance Results * FL Less than 1 Hour Intraoperative (02/17/2025 3:18 PM EDT) Narrative IMAGING - 02/17/2025 3:19 PM EDT Images were obtained for surgical purposes. See Ochoa Matias's surgical note in the patient's chart for the findings. us Ochoa Matias MD IMG FLUOROSCOPY PROCEDURES Final Result IMAGING * NE AN ELECTIVE ENDOTRACHEAL AIRWAY, PB ANESTHESIA PLACEHOLDER (02/17/2025 2:17 PM EDT) Narrative Bisi Restrepo CRNA, DNP - 02/17/2025 2:17 PM EDT Bisi Restrepo CRNA, DNP 02/17/2025 2:25 PM Airway Date/Time: 02/17/2025 2:17 PM Reason: elective Airway not difficult General Information and Staff Patient location during procedure: OR PANTOGRAPH TRANSFERRER: Bisi Restrepo CRNA, DNP Performed: PANTOGRAPH TRANSFERRER Patient Condition Indications for airway management: anesthesia [...] Meier MD ANESTHESIA ORDERABLES Final Re sult * SEND CLARISSA MESSAGE (01/27/2025 3:37 PM EDT) Urine Urine specimen obtained by clean catch procedure / Unknown Non-blood Collection / Unknown 01/27/2025 3:37 PM EDT 01/27/2025 4:29 PM EDT us Karolyn Toro MD LAB URINE ORDERABLES Final Res ult Performing Organization Address [facility] de Phone Number [facility] [address] [place] [address] * Urine Stafford Panel (01/27/2025 3:37 PM EDT) Extra Sent for Culture 01/27/2025 6:01 PM EDT [facility] Urine Urine specimen obtained by clean catch procedure / Unknown Non-blood Collection / Unknown 01/27/2025 3:37 PM EDT 01/27/2025 4:29 PM EDT us Karolyn Toro MD LAB URINE ORDERABLES Final Res ult Performing Organization Address [facility] de Phone Number [facility] [address] [place] [address] * Urinalysis Microscopic Examination (01/27/2025 3:37 PM EDT) Urine Urine specimen obtained by clean catch procedure / Unknown Non-blood Collection / Unknown 01/27/2025 3:37 PM EDT 01/27/2025 3:39 PM EDT us Karolyn Toro MD LAB URINE ORDERABLES Final Res ult Performing Organization Address [facility] de Phone Number [facility] [address] [place] [address] * (ABNORMAL) Urinalysis with reflex microscopic (Culture NOT Included) (01/27/2025 3:37 PM EDT) Color, Urine Yellow LAB URINALYSIS - AUTOMATED METHOD 01/27/2025 4:47 PM EDT [facility] Clarity, Urine Cloudy LAB URINALYSIS - AUTOMATED METHOD 01/27/2025 4:47 PM EDT [facility] Spec [place], Urine >1.030(H) 1.005 - 1.030 LAB URINALYSIS - AUTOMATED METHOD 01/27/2025 4:47 PM EDT [facility] pH, Urine 6.5 5.0 - 8.0 LAB URINALYSIS - AUTOMATED METHOD 01/27/2025 4:47 PM EDT [facility] Protein, Urine 100(A) Negative mg/dL LAB URINALYSIS - AUTOMATED METHOD 01/27/2025 4:47 PM EDT [facility] Glucose, Urine Negative Negative mg/dL LAB URINALYSIS - AUTOMATED METHOD 01/27/2025 4:47 PM EDT [facility] Ketones, Urine Negative Negative mg/dL LAB URINALYSIS - AUTOMATED METHOD 01/27/2025 4:47 PM EDT [facility] Blood, Urine Moderate(A) Negative LAB URINALYSIS - AUTOMATED METHOD 01/27/2025 4:47 PM EDT [facility] Bilirubin, Urine Negative Negative LAB URINALYSIS - AUTOMATED METHOD 01/27/2025 4:47 PM EDT [facility] Urobilinogen, Urine 1.0 0.2 to 1.0 mg/dL LAB URINALYSIS - AUTOMATED METHOD 01/27/2025 4:47 PM EDT [facility] Leukocytes, Urine Large(A) Negative LAB URINALYSIS - AUTOMATED METHOD 01/27/2025 4:47 PM EDT [facility] Nitrite, Urine Positive(A) Negative LAB URINALYSIS - AUTOMATED METHOD 01/27/2025 4:47 PM EDT [facility] RBC, Urine 16 - 30(A) 0 to 3 /HPF LAB URINALYSIS - AUTOMATED METHOD 01/27/2025 4:47 PM EDT [facility] Comment:This result was prev iously suppressed from the chart. WBC, Urine >50(A) 0 to 5 /HPF LAB URINALYSIS - AUTOMATED METHOD 01/27/2025 4:47 PM EDT [facility] Comment:This result was prev iously suppressed from the chart. Squamous Epithelial Cells 0 - 2 0 to 5 /HPF LAB URINALYSIS - AUTOMATED METHOD 01/27/2025 4:47 PM EDT [facility] Comment:This result was prev iously suppressed from the chart. Hyaline Casts 11 - 20(A) 0 to 5 /LPF LAB URINALYSIS - AUTOMATED METHOD 01/27/2025 4:47 PM EDT [facility] Comment:This result was prev iously suppressed from the chart. Bacteria, Urine Present Negative LAB URINALYSIS - AUTOMATED METHOD 01/27/2025 4:47 PM EDT [facility] Comment:This result was prev iously suppressed from the chart. Urine Urine specimen obtained by clean catch procedure / Unknown Non-blood Collection / Unknown 01/27/2025 3:37 PM EDT 01/27/2025 3:39 PM EDT Karolyn Toro MD LAB URINE ORDERABLES Final Res ult Performing Organization Address [facility] Co de Phone Number [facility] [address] [place] [address] * Urine Culture (01/27/2025 3:37 PM EDT) Culture >=100,000 CFU/mL Mixed urogenital , fecal, or skin meg present. 01/29/2025 1:54 PM EDT [facility] Comment:This is a corrected result. Previous organism was Gram Negative Elliot on 01/28/2025 at 1539 EDT. Urine Urine specimen obtained by clean catch procedure / Unknown Non-blood Collection / Unknown 01/27/2025 3:37 PM EDT 01/27/2025 4:29 PM EDT Karolyn Toro MD LAB MICROBIOLOGY - GENERAL ORD ERABLES Final Result Performing Organization Address [facility] de Phone Number [facility] [address] [place] [address] * CT Abdomen Pelvis w IV Contrast [...] LAB HEMATOLOGY METHOD 01/27/2025 12:11 PM EDT [facility] RBC Count 4.17 3.90 - 5.20 10*6/uL LAB HEMATOLOGY METHOD 01/27/2025 12:11 PM EDT [facility] HGB 12.7 11.2 - 15.7 g/dL LAB HEMATOLOGY METHOD 01/27/2025 12:11 PM EDT [facility] HCT 36.1 34.0 - 45.0 % LAB HEMATOLOGY METHOD 01/27/2025 12:11 PM EDT [facility] Platelet Count 439(H) 155 - 369 10*3/uL LAB HEMATOLOGY METHOD 01/27/2025 12:11 PM EDT [facility] MCV 87 79 - 98 fL LAB HEMATOLOGY METHOD 01/27/2025 12:11 PM EDT [facility] MCH 30.5 26.0 - 32.0 pg LAB HEMATOLOGY METHOD 01/27/2025 12:11 PM EDT [facility] MCHC 35.2 30.7 - 35.5 g/dL LAB HEMATOLOGY METHOD 01/27/2025 12:11 PM EDT [facility] RDW 17.8(H) 11.5 - 14.5 % LAB HEMATOLOGY METHOD 01/27/2025 12:11 PM EDT [facility] MPV 8.1(L) 8.8 - 12.5 fL LAB HEMATOLOGY METHOD 01/27/2025 12:11 PM EDT [facility] nRBC 0.0 <=0.0 per 100 WBCs LAB HEMATOLOGY METHOD 01/27/2025 12:11 PM EDT [facility] Differential Type Automated LAB HEMATOLOGY METHOD 01/27/2025 12:11 PM EDT [facility] Neutrophils % 67 % LAB HEMATOLOGY METHOD 01/27/2025 12:11 PM EDT [facility] Lymphocytes % 18 % LAB HEMATOLOGY METHOD 01/27/2025 12:11 PM EDT [facility] Monocytes % 13 % LAB HEMATOLOGY METHOD 01/27/2025 12:11 PM EDT [facility] Eosinophils % 1 % LAB HEMATOLOGY METHOD 01/27/2025 12:11 PM EDT [facility] Basophils % 1 % LAB HEMATOLOGY METHOD 01/27/2025 12:11 PM EDT [facility] Immature Granulocytes % 0 % LAB HEMATOLOGY METHOD 01/27/2025 12:11 PM EDT [facility] Neutrophils Absolute 5.02 1.60 - 6.10 10*3/uL LAB HEMATOLOGY METHOD 01/27/2025 12:11 PM EDT [facility] Lymphocytes Absolute 1.32 1.20 - 3.90 10*3/uL LAB HEMATOLOGY METHOD 01/27/2025 12:11 PM EDT [facility] Monocytes Absolute 0.95(H) 0.30 - 0.90 10*3/uL LAB HEMATOLOGY METHOD 01/27/2025 12:11 PM EDT [facility] Eosinophils Absolute 0.09 0.00 - 0.50 10*3/uL LAB HEMATOLOGY METHOD 01/27/2025 12:11 PM EDT [facility] Basophils Absolute 0.08 0.00 - 0.10 10*3/uL LAB HEMATOLOGY METHOD 01/27/2025 12:11 PM EDT [facility] Immature Granulocytes Absolute 0.02 0.00 - 0.06 10*3/uL LAB HEMATOLOGY METHOD 01/27/2025 12:11 PM EDT [facility] Blood Venous blood specimen / Unknown Venipuncture / Unknown 01/27/2025 12:04 PM EDT 01/27/2025 12:09 PM EDT Narrative [facility] - 01/27/2025 12:11 PM EDT Therapeutic decision making should be based on absolute values, rather than percentages. us Karolyn Toro MD LAB BLOOD ORDERABLES Final Res ult [facility] [address] [place] [address] * (ABNORMAL) BMP (01/27/2025 12:04 PM EDT) Glucose, Plasma 119(H) 74 - 99 mg/dL 01/27/2025 12:32 PM EDT [facility] BUN, Plasma 13 8 - 23 mg/dL 01/27/2025 12:32 PM EDT [facility] Creatinine, Plasma 0.94 0.60 - 1.10 mg/dL 01/27/2025 12:32 PM EDT [facility] BUN/Creatinine Ratio 14 01/27/2025 12:32 PM EDT [facility] Sodium, Plasma 132(L) 136 - 145 mmol/L 01/27/2025 12:32 PM EDT [facility] Potassium, Plasma 4.0 3.6 - 4.9 mmol/L 01/27/2025 12:32 PM EDT [facility] Chloride, Plasma 96(L) 97 - 107 mmol/L 01/27/2025 12:32 PM EDT [facility] CO2, Plasma 22 22 - 29 mmol/L 01/27/2025 12:32 PM EDT [facility] Anion Gap 14 6 - 16 mmol/L 01/27/2025 12:32 PM EDT [facility] Total Calcium, Plasma 9.9 8.9 - 10.2 mg/dL 01/27/2025 12:32 PM EDT [facility] eGFRcr 65.4 mL/min/1.7 3m*2 01/27/2025 12:32 PM EDT [facility] Comment:Reported eGFRcr in m L/min/1.73m2 is based the CKD-EPI 2020 equation that does not use a race coefficient. Blood Venous blood specimen / Unknown Venipuncture / Unknown 01/27/2025 12:04 PM EDT 01/27/2025 12:09 PM EDT us Karolyn Toro MD LAB BLOOD ORDERABLES Final Res ult [facility] [address] [place] [address] * IR Nephrostomy Tube Exchange (12/20/2024 9:20 [...] 10:48 AM Final report signed by Liang Rodrigeuz MD on 12/20/2024 10:50 AM Narrative 12/20/2024 10:50 AM EDT CLINICAL INDICATION: 69-year-old female who presents for routine bilateral nephrostomy tube exchange. TECHNIQUE: Chip Frier: Sundeep Bowman MD Supervising attending: Liang Rodriguez [...] antisepsis, followed by sterile barrier draping A fixed route bus operator film was performed to document the [...] were no immediate complication. COMPARISON: None. FINDINGS: Final Inspector Shuttle images and nephrostograms demonstrate bilateral percutaneous nephrostomy tubes in expected location. COMPLICATION: No. Procedure Note Liang Rodriguez MD - 12/20/2024 CLINICAL INDICATION: 69-year-old female who presents for routine bilateral nephrostomy tubeexchange. TECHNIQUE: Chip Frier: Sundeep Bowman MD Supervising attending: Liang Rodriguez [...] cutaneousantisepsis, followed by sterile barrier draping A fixed route bus operator film was performed to document the [...] there were no immediatecomplication. COMPARISON: None. FINDINGS: Final Inspector Shuttle images and nephrostograms demonstrate bilateral percutaneousnephrostomy tubes [...] MD on 12/20/2024 10:50 AM Kristen Bryant LIFE EDUCATOR IMG IR PROCEDURES Final Result * Hepatitis C Antibody - ED (07/22/2024 7:54 PM EST) Hepatitis C Antibody Negative Negative 07/22/2024 9:11 PM EST [facility] Blood Venous blood specimen / Unknown Venipuncture / Unknown 07/22/2024 7:54 PM EST 07/22/2024 8:09 PM EST Luz MCCABE LAB BLOOD ORDERABLES Missy l Result [facility] [address] [place] [address] from Last 3 Months or Most Recently Relevant to Health Maintenance Additional Health Concerns Active Problems Noted Date Diagnosed Date Autogenerated Problem 02/18/2025 Insurance [facility] Advance Directives * Full Code [...] Patient has decision-making capacity? Yes Care Teams Plug Grower Relationship Specialty Start Date End Date Luis Hatfield MD [address] [place] [address] PCP - General 07/24/24
--- OUTSIDE RECORDS SUMMARY | 2025-02-20 09:20 | XMS_ITS | Encounter Summary ---
Author Organization [facility] Address [address] [place] [address] Care Team Providers Care Straddle Bug Operator Name Role Phone Luis Hatfield MD Primary Care Provider [phone] Encounter Details Date Type Department Care Team [...] time in the past 12 m [facility], were you homeless or living [...] drink first t kimberlyn in the morning (EYE-PRINTED FORMS PROOFREADER) to steady your nerves or to get rid of a hangover? 0 09/11/2024 CAGE Questionnaire Score 0 025 Utilities Answer Date Recorded In the past 12 months has th e [employer], gas, oil, or water company threatened to [...] No Risk Indicated 01/27/2025 12:11 PM EDT WilliAmira martínez ms, RN * Question Answer Date of Assessment Author 1. Wish to be (Past 1 Month) No 01/27/2025 12:11 PM EDT Aubrey Jules, RN 2. Non-Specific Active Suicidal Thoughts (Past 1 Month) No 01/27/2025 12:11 PM EDT Aubrey Jules, RN 6. Suicidal Behavior (Lifetime) No 01/27/2025 12:11 PM EDT Aubrey Jules RN documented as of this encounter Plan of Treatment Upcoming Encounters Date Type Department Care Team (Late st Contact Info) Description 03/07/2025 10:30 AM EDT Appointment [facility] Interventional Radiology [address] [place] [address] 05/14/2025 10:40 AM EST Office Visit [facility] [address] [place] [address] Lauren Christine PA [address] [place] [address] documented as of this encounter Visit Diagnoses [...] documented as of this encounter Care Teams Straddle Bug Operator Relationship Specialty Start Date End Date Luis Hatfield MD [facility] [address] [address] PCP - General 07/24/24 documented as of this encounter
[2025-02-20 09:26] LABS: Alanine Aminotransferase 11 U/L (12-78); Albumin Level 4.1 g/dl (3.5-5.0); Albumin/Globulin Ratio 1.5 (1.1-1.8); Alkaline Phosphatase 80 U/L (38-126); Anion Gap 11.5 mEq/L (5-15); Aspartate Amino Transferase 32 U/L (14-36); Bilirubin,Total 1.2 mg/dl (0.2-1.3); Blood Urea Nitrogen 12 mg/dl (7-17); Calcium 9.4 mg/dl (8.4-10.2); Carbon Dioxide 27 mmol/L (22.0-30.0); Chloride 101 mmol/L (98-107); Creatinine,Serum 0.90 mg/dl (0.52-1.04); Estimated Glomerular Filt Rate 62 ml/min (>60); GFR (African American) 75 ML/MIN (>60); Globulin 2.7 g/dL (1.3-3.2); Glucose 104 mg/dl (74-100); Potassium 3.5 mmoL/L (3.5-5.1); Sodium 136 mmol/L (136-145); Total Protein,Serum 6.8 g/dl (6.3-8.2)
[2025-02-20] MEDS: PROCHLORPERAZINE 10MG TABLET 10 MG PO (09:40)
[2025-02-20 09:55] LABS: Thyroid Stimulating Hormone 1.00 uIU/mL (0.465-4.68)
[2025-02-20 10:10] VITALS: BP 133/68; PULSE 103; RESP 17; TEMP 36.4; O2SAT 95
[2025-02-20] MEDS: ENFORTUMAB VEDOTIN EJFV IV (10:10)
[2025-02-20] MEDS: SODIUM CHLORIDE 0.9% IV (10:10)
[2025-02-20 10:25] VITALS: BP 114/62; PULSE 88; RESP 16
[2025-02-20 10:40] VITALS: BP 126/66; PULSE 91; RESP 16
== END 2025-02-20 11:00 | disposition home or self-care (01) ==
LOC: INF 09:01
PROVIDERS: PCP Family Medicine; Visit Provider Internal Medicine Medical Oncology
DX: C67.9 Malignant neoplasm of bladder, unspecified (principal); Z51.11 Encounter for antineoplastic chemotherapy
CPT/HCPCS: 80053; 84443; 85025; 96413; J9177; Q0164

== ENCOUNTER 2025-03-06 10:51 | Outpatient (CLI) | payer MEDICARE, SELFPAY ==
[2025-03-06 11:08] LABS: Hematocrit 37.1 % (37.0-47.0); Hemoglobin 12.6 g/dL (12.2-16.2); Immature Granulocytes % 0.1 %; Mean Corpuscular HGB Conc 34.0 g/dL (31.8-35.4); Mean Corpuscular Hemoglobin 30.6 pg (27.0-31.2); Mean Corpuscular Volume 90.0 fl (81-99); Nucleated Red Blood Cells % 0 %; Platelet Count 354 K/mm3 (142-424); Red Blood Count 4.12 M/mm3 (4.20-5.40); Red Cell Distribution Width-SD 59.4 fL; White Blood Count 6.9 K/mm3 (4.8-10.8)
[2025-03-06 11:17] LABS: Albumin Level 4.0 g/dl (3.5-5.0); Chloride 100 mmol/L (98-107); Potassium 3.7 mmoL/L (3.5-5.1); Sodium 137 mmol/L (136-145)
[2025-03-06 11:20] LABS: Alanine Aminotransferase 18 U/L (12-78); Albumin/Globulin Ratio 1.5 (1.1-1.8); Alkaline Phosphatase 59 U/L (38-126); Anion Gap 13.7 mEq/L (5-15); Aspartate Amino Transferase 45 U/L (14-36); Bilirubin,Total 1.3 mg/dl (0.2-1.3); Blood Urea Nitrogen 8 mg/dl (7-17); Carbon Dioxide 27 mmol/L (22.0-30.0); Creatinine,Serum 0.80 mg/dl (0.52-1.04); Estimated Glomerular Filt Rate 71 ml/min (>60); GFR (African American) 86 ML/MIN (>60); Globulin 2.7 g/dL (1.3-3.2); Glucose 138 mg/dl (74-100); Total Protein,Serum 6.7 g/dl (6.3-8.2)
[2025-03-06 11:21] LABS: Calcium 9.6 mg/dl (8.4-10.2)
[2025-03-06 11:51] LABS: Thyroid Stimulating Hormone 0.79 uIU/mL (0.465-4.68)
[2025-03-06] MEDS: PEMBROLIZUMAB 200 MG in 0.9 % SODIUM CHLORIDE 50 ML 116 MG IV (12:10)
[2025-03-06 12:15] VITALS: BP 119/79; PULSE 71; RESP 18; TEMP 36.5; O2SAT 95
[2025-03-06 12:45] VITALS: BP 121/69; PULSE 75
[2025-03-06] MEDS: SODIUM CHLORIDE 0.9% 10ML FLUSH SYRINGE 10 ML IV (12:45)
== END 2025-03-06 23:59 | disposition home or self-care (01) ==
LOC: INF 10:52
PROVIDERS: PCP Family Medicine; Visit Provider Internal Medicine Medical Oncology
DX: C47.9 Malignant neoplasm of peripheral nerves and autonomic nervous system, unspecified (principal); Z51.11 Encounter for antineoplastic chemotherapy
CPT/HCPCS: 80053; 82024; 82533; 84443; 85025; 96413; J9271

== ENCOUNTER 2025-03-27 09:18 | Outpatient (CLI) | payer MEDICARE, SELFPAY ==
--- OUTSIDE RECORDS SUMMARY | 2024-09-17 06:15 | XMS_ITS ---
Author Organization [facility] Address [address] [facility] [address] [place] [id number] Care Team Providers Care Screw Supervisor Name Role Phone Nikki Sevilla Primary Care Provider [phone] Luis Hatfield [phone] REASON FOR VISIT 6 week f/u Encounters Encounter Location Date Provider Diagnosis [facility] [address] [place], [place] [phone] 09/17/2024 Luis Hatfield Plan Of Treatment Next Appt Details Provider Name:Luis Hernández ry, 08/04/2025 09:30:00 AM, [address], [address], [place], [place], [phone], Progress Notes * Leandro PRITCHARDOB:[birth year] (70 yo F)Acc No.[id number]:09/17/2024 Progress Notes Patient: Sergei TREJOestine Provider: Clay Hatfield M.D. :1955 A ge:69 Y S ex:Female Date:09/17/2024 Address:[address] [place] [address] [place] [id number] Pcp:Nikki Sveilla Subjective: * Chief Complaints: * 1 . 6 week f/u. * Medical History: Objective: * Vitals: Assessment: Plan: * Treatment: * Images: Billing Information: * Visit Code: * Procedure Codes: * Electronic signature of Vicky Hatfield MD on 03/27/2025 at 09:28 AM EDT Sign off status: Pending * Provider: Clay Hatfield M.D. Date: 0 09/17/2024 Generated for Gonzales jaquez/Joyce/Gonzalez on: 1 09:28 AM EDT
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
--- OUTSIDE RECORDS SUMMARY | 2025-01-27 12:05 | XMS_ITS | Encounter Summary ---
Author Organization Healthcare Address [address] [place] [address] Care Team Providers Care Lead Business Systems Analyst Name Role Phone Luis Hatfield MD Primary Care Provider [phone] Reason for Visit * Reason Comments ileostomy concern Encounter Details Date Type Department Care Team ([facility] st Contact Info) Description 01/27/2025 12:05 PM EDT - 01/27/2025 7:02 PM EDT Emergency [facility] Emergency Department [address] [place] [address] Karolyn Toro MD [facility] [place] [address] Sheree Augustine MD [address] [place] [id number] UTI (urinary tract infection), bacterial (Primary Dx); Malfunction of nephrostomy tube ([facility]); Hydronephrosis, unspecified hydronephrosis type Discharge Disposition: Home or Self Care Social History Tobacco Use Types Packs/Day Years Used Date Smoking Tobacco: Former Cigarettes 0.1 51.8 S tarted: 1974 Smokeless Tobacco: Never Alcohol [...] any time in the past 12 m [facility], were you homeless or living [...] drink first t kimberlyn in the morning (EYE-AUDIENCE COORDINATOR) to steady your nerves or to [...] EDT You were seen and evaluated at [facility] Emergency Department. Urology saw you in the department and evaluated do. They were able to flush both nephrostomy tubes. Per their recommendations you should flush your nephrostomy tubes daily. If you have complications with flushing or ear tubes drainingyou may call the IR clinic at [phone] or be seen in the emergency department. [...] Reason for consult: b/l PCNTs not draining [facility] Urology Consult Note 01/27/25 Service Requesting Consultation: [...] Procedure Laterality Date CHOLECYSTECTOMY N/A Cholecystectomy from [facility] NECK SURGERY N/A Neck Surgery from [facility] [3] No family history on file. [4] [...] Instructions You were seen and evaluated at [facility] Emergency Department. Urology saw you in the department and evaluated do. They were able to flush both nephrostomy tubes. Per their recommendations you should flush your nephrostomy tubes daily. If you have complications with flushing or ear tubes drainingyou may call the IR clinic at [phone] or be seen in the emergency department. [...] distress at the time of discharge. AVS (Pashto Snapshot) - Printed 01/27/2025 Follow-Ups: Follow up [...] Procedure Laterality Date CHOLECYSTECTOMY N/A Cholecystectomy from [facility] NECK SURGERY N/A Neck Surgery from [facility] [3] No family history on file. [4] [...] and Vomiting Nidia Harrington MD Resident 01/28/25 0926 Cosigned by Karolyn Toro MD at 01/28/2025 7:34 PM EDT Associated attestation - Karoyln Toro MD - 01/28/2025 7:34 PM EDT [...] Care Team (Late st Contact Info) Description 05/14/2025 10:40 AM EST Office Visit [facility] Multidisciplinary Oncology Clinic [address] [place] [address] Lauren Christine, ESTELLE [address] [facility] [address] [place] [address] documented as of this encounter Procedures Procedure [...] Final Res ult Performing Organization Address [facility] Co de Phone Number [facility] [address] [place] [address] * Urine Culture (01/27/2025 3:37 PM EDT) Culture >=100,000 CFU/mL Mixed urogenital , fecal, or skin meg present. 01/29/2025 1:[address] [facility] Comment:This is a corrected result. Previous organism was Gram Negative Elliot on 01/28/2025 at 1539 EDT. Urine Urine specimen obtained by clean catch procedure / Unknown Non-blood Collection / Unknown 01/27/2025 3:37 PM EDT 01/27/2025 4:29 PM EDT us Karolyn Toro MD LAB MICROBIOLOGY - GENERAL ORD ERABLES Final Result Performing Organization Address [facility]/ZIP Co de Phone Number [facility] [address] [place] [address] * Urinalysis Microscopic Examination (01/27/2025 3:37 PM EDT) Urine Urine specimen obtained by clean catch procedure / Unknown Non-blood Collection / Unknown 01/27/2025 3:37 PM EDT 01/27/2025 3:39 PM EDT us Karolyn Toro MD LAB URINE ORDERABLES Final Res ult [facility] [address] [place] [address] * Urine Stafford Panel (01/27/2025 3:37 PM EDT) Extra Sent for Culture 01/27/2025 6:[address] [facility] Urine Urine specimen obtained by clean catch procedure / Unknown Non-blood Collection / Unknown 01/27/2025 3:37 PM EDT 01/27/2025 4:29 PM EDT us Karolyn Toro MD LAB URINE ORDERABLES Final Res ult Performing Organization Address [facility]/ZIP Co de Phone Number [facility] [address] [place] [address] * (ABNORMAL) Urinalysis with reflex microscopic (Culture NOT Included) (01/27/2025 3:37 PM EDT) Color, Urine Yellow LAB URINALYSIS - AUTOMATED METHOD 01/27/2025 4:[address] [facility] Clarity, Urine Cloudy LAB URINALYSIS - AUTOMATED METHOD 01/27/2025 4:[address] [facility] Spec Burt, Urine >1.030(H) 1.005 - 1.030 LAB URINALYSIS - AUTOMATED METHOD 01/27/2025 4:[address] [facility] pH, Urine 6.5 5.0 - 8.0 LAB URINALYSIS - AUTOMATED METHOD 01/27/2025 4:[address] [facility] Protein, Urine 100(A) Negative mg/dL LAB URINALYSIS - AUTOMATED METHOD 01/27/2025 4:[address] [facility] Glucose, Urine Negative Negative mg/dL LAB URINALYSIS - AUTOMATED METHOD 01/27/2025 4:[address] [facility] Ketones, Urine Negative Negative mg/dL LAB URINALYSIS - AUTOMATED METHOD 01/27/2025 4:[address] [facility] Blood, Urine Moderate(A) Negative LAB URINALYSIS - AUTOMATED METHOD 01/27/2025 4:[address] [facility] Bilirubin, Urine Negative Negative LAB URINALYSIS - AUTOMATED METHOD 01/27/2025 4:[address] [facility] Urobilinogen, Urine 1.0 0.2 to 1.0 mg/dL LAB URINALYSIS - AUTOMATED METHOD 01/27/2025 4:[address] [facility] Leukocytes, Urine Large(A) Negative LAB URINALYSIS - AUTOMATED METHOD 01/27/2025 4:[address] [facility] Nitrite, Urine Positive(A) Negative LAB URINALYSIS - AUTOMATED METHOD 01/27/2025 4:[address] [facility] RBC, Urine 16 - 30(A) 0 to 3 /HPF LAB URINALYSIS - AUTOMATED METHOD 01/27/2025 4:[address] [facility] Comment:This result was prev iously suppressed from the chart. WBC, Urine >50(A) 0 to 5 /HPF LAB URINALYSIS - AUTOMATED METHOD 01/27/2025 4:[address] [facility] Comment:This result was prev iously suppressed from the chart. Squamous Epithelial Cells 0 - 2 0 to 5 /HPF LAB URINALYSIS - AUTOMATED METHOD 01/27/2025 4:[address] [facility] Comment:This result was prev iously suppressed from the chart. Hyaline Casts 11 - 20(A) 0 to 5 /LPF LAB URINALYSIS - AUTOMATED METHOD 01/27/2025 4:[address] [facility] Comment:This result was prev iously suppressed from the chart. Bacteria, Urine Present Negative LAB URINALYSIS - AUTOMATED METHOD 01/27/2025 4:[address] [facility] Comment:This result was prev iously suppressed from the chart. Urine Urine specimen obtained by clean catch procedure / Unknown Non-blood Collection / Unknown 01/27/2025 3:37 PM EDT 01/27/2025 3:39 PM EDT us Karolyn Toro MD LAB URINE ORDERABLES Final Res ult [facility] [address] [place] [address] * CT Abdomen Pelvis w IV Contrast [...] signing this report, I, the attending physician, attestthat I have personally reviewed the images/data for the aboveexamination(s) and agree with the final edited report. Drafted by Wojciech Galvez MD on 01/27/2025 2:19 PM Final report signed by Piyush Philippe MD on 01/27/2025 3:20 PM us Karolyn Toro MD IMG CT PROCEDURES Final Result * (ABNORMAL) BMP (01/27/2025 12:04 PM EDT) Glucose, Plasma 119(H) 74 - 99 mg/dL 01/27/2025 12:[address] [facility] BUN, Plasma 13 8 - 23 mg/dL 01/27/2025 12:[address] [facility] Creatinine, Plasma 0.94 0.60 - 1.10 mg/dL 01/27/2025 12:[address] [facility] BUN/Creatinine Ratio 14 01/27/2025 12:[address] [facility] Sodium, Plasma 132(L) 136 - 145 mmol/L 01/27/2025 12:[address] [facility] Potassium, Plasma 4.0 3.6 - 4.9 mmol/L 01/27/2025 12:[address] [facility] Chloride, Plasma 96(L) 97 - 107 mmol/L 01/27/2025 12:[address] [facility] CO2, Plasma 22 22 - 29 mmol/L 01/27/2025 12:[address] [facility] Anion Gap 14 6 - 16 mmol/L 01/27/2025 12:[address] [facility] Total Calcium, Plasma 9.9 8.9 - 10.2 mg/dL 01/27/2025 12:[address] [facility] eGFRcr 65.4 mL/min/1.7 3m*2 01/27/2025 12:[address] [facility] Comment:Reported eGFRcr in m L/min/1.73m2 is based the CKD-EPI 2020 equation that does not use a race coefficient. Blood Venous blood specimen / Unknown Venipuncture / Unknown 01/27/2025 12:04 PM EDT 01/27/2025 12:09 PM EDT us Karolyn Toro MD LAB BLOOD ORDERABLES Final Res ult [facility] [address] [place] [address] * (ABNORMAL) CBC w/diff (01/27/2025 12:04 PM EDT) WBC Count 7.48 3.70 - 10.30 10*3/uL LAB HEMATOLOGY METHOD 01/27/2025 12:[address] [facility] RBC Count 4.17 3.90 - 5.20 10*6/uL LAB HEMATOLOGY METHOD 01/27/2025 12:[address] [facility] HGB 12.7 11.2 - 15.7 g/dL LAB HEMATOLOGY METHOD 01/27/2025 12:[address] [facility] HCT 36.1 34.0 - 45.0 % LAB HEMATOLOGY METHOD 01/27/2025 12:[address] [facility] Platelet Count 439(H) 155 - 369 10*3/uL LAB HEMATOLOGY METHOD 01/27/2025 12:[address] [facility] MCV 87 79 - 98 fL LAB HEMATOLOGY METHOD 01/27/2025 12:[address] [facility] MCH 30.5 26.0 - 32.0 pg LAB HEMATOLOGY METHOD 01/27/2025 12:[address] [facility] MCHC 35.2 30.7 - 35.5 g/dL LAB HEMATOLOGY METHOD 01/27/2025 12:[address] [facility] RDW 17.8(H) 11.5 - 14.5 % LAB HEMATOLOGY METHOD 01/27/2025 12:[address] [facility] MPV 8.1(L) 8.8 - 12.5 fL LAB HEMATOLOGY METHOD 01/27/2025 12:[address] [facility] nRBC 0.0 <=0.0 per 100 WBCs LAB HEMATOLOGY METHOD 01/27/2025 12:[address] [facility] Differential Type Automated LAB HEMATOLOGY METHOD 01/27/2025 12:[address] [facility] Neutrophils % 67 % LAB HEMATOLOGY METHOD 01/27/2025 12:[address] [facility] Lymphocytes % 18 % LAB HEMATOLOGY METHOD 01/27/2025 12:[address] [facility] Monocytes % 13 % LAB HEMATOLOGY METHOD 01/27/2025 12:[address] [facility] Eosinophils % 1 % LAB HEMATOLOGY METHOD 01/27/2025 12:[address] [facility] Basophils % 1 % LAB HEMATOLOGY METHOD 01/27/2025 12:[address] [facility] Immature Granulocytes % 0 % LAB HEMATOLOGY METHOD 01/27/2025 12:[address] [facility] Neutrophils Absolute 5.02 1.60 - 6.10 10*3/uL LAB HEMATOLOGY METHOD 01/27/2025 12:[address] [facility] Lymphocytes Absolute 1.32 1.20 - 3.90 10*3/uL LAB HEMATOLOGY METHOD 01/27/2025 12:[address] [facility] Monocytes Absolute 0.95(H) 0.30 - 0.90 10*3/uL LAB HEMATOLOGY METHOD 01/27/2025 12:[address] [facility] Eosinophils Absolute 0.09 0.00 - 0.50 10*3/uL LAB HEMATOLOGY METHOD 01/27/2025 12:[address] [facility] Basophils Absolute 0.08 0.00 - 0.10 10*3/uL LAB HEMATOLOGY METHOD 01/27/2025 12:[address] [facility] Immature Granulocytes Absolute 0.02 0.00 - 0.06 10*3/uL LAB HEMATOLOGY METHOD 01/27/2025 12:[address] [facility] Blood Venous blood specimen / Unknown Venipuncture / Unknown 01/27/2025 12:04 PM EDT 01/27/2025 12:[address] [facility] - 01/27/2025 12:11 PM EDT Therapeutic decision making should be based on absolute values, rather than percentages. us Karolyn Toro MD LAB BLOOD ORDERABLES Final Res ult [facility] [address] [place] [address] documented in this encounter Visit Diagnoses Diagnosis UTI (urinary tract infection), bacterial- Primary Malfunction of nephrostomy tube Hydronephrosis, unspecified hydronephrosis type documented in this [...] documented as of this encounter Care Teams Lead Business Systems Analyst Relationship Specialty Start Date End Date Luis Hatfield MD [address] [place] [address] PCP - General 07/24/24 documented as of this encounter
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
--- OUTSIDE RECORDS SUMMARY | 2025-02-05 11:45 | XMS_ITS | Encounter Summary ---
Author Organization Healthcare Address [address] [place] [address] Care Team Providers Care Coin Machine Collector Name Role Phone Luis Hatfield MD Primary Care Provider [phone] Reason for Visit * Reason Comments Follow-up Malignant neoplasm o f urinary bladder, unspecified site Encounter Details Date Type Department Care Team (Latest Contact Info) Description 02/05/2025 11:45 AM EDT Office Visit [facility] Multidisciplinary Oncology Clinic [address] [place] [address] Ochoa Matias MD [address] [place] [address] Malignant neoplasm of urinary bladder, [...] any time in the past 12 m [facility], were you homeless or living [...] drink first t kimberlyn in the morning (EYE-PSYCHOSOCIAL REHABILITATION COUNSELOR) to steady your nerves or to [...] television Not at all 02/05/2025 11:38 AM EDT Zina Schultz Moving or speaking so slowly that other people could have noticed? Or the opposite - being so fidgety or restless that you have been moving around a lot more than usual. Not at all 02/05/2025 11:38 AM EDT Zina Schulzt Thoughts that you would be b milena off or hurting yourself in some way Not at all 02/05/2025 11:38 AM EDT Zina Schultz Patient Health Questionnaire -9 Score 0 02/05/2025 11:38 AM EDT Zina Schultz * How difficult have these problems made it for you to do your work, take care of things at home, or get along with other people? Answer Date of Assessment Author Not difficult at all 02/05/2025 11:38 AM SHIVANIT Zina Love documented as of this encounter Miscellaneous Notes [...] in the operating room. Ochoa Matias MD Program Rep Department of Urology History of Present Illness: Yaima Pritchard is a 69 y.o. female from [facility] [address] who returns in follow-up for bladder cancer. The patient was transferred to the emergency department from [facility] on 07/22/2024 with weakness short of [...] been voiding well. Follows closely with the plate glass installer. Patient has history lupus on hydroxychloroquine with her primary symptom being arthralgias. Baseline serum creatinine1.4 with GFR 40. She has seen a medical oncologist closer to home near [place], however, she has had issues with her [...] NECK SURGERY N/A Neck Surgery from [facility] No family history on file. Social History [...] Take 1 tablet by mouth daily. HYDROcodone-acetaminophen ([place]) 5-325 MG tablet Take 1-2 tablets by [...] the assessment and plan. Surgical Pathology Exam: [id number] Order: [id number] Collected 07/23/2024 13:18 Status: Final result Visible to patient: Yes (not seen) Dx: Bladder mass 0 Result Notes Component Final Diagnosis A. BLADDER TUMOR, TRANSURETHRAL RESECTION: - MUSCLE INVASIVE HIGH-GRADE PAPILLARY UROTHELIAL CARCINOMA. - LYMPHOVASCULAR INVASION IDENTIFIED. documented in this encounter Plan of Treatment Upcoming Encounters Date Type Department Care Team (Late st Contact Info) Description 05/14/2025 10:40 AM EST Office Visit [facility] Mult[facility] [address] [place] [address] Lauren Christine, PA [address] [place] [address] documented as of this encounter Visit Diagnoses Diagnosis Malignant neoplasm of urinary bladder, unspecified site- Primary documented in this encounter Additional Health Concerns Assessment Noted Time PHQ-9 Depression Total Score: 0 02/06/20 11:38 AM EDT A fall risk assessment has been complete d for the patient 02/05/2025 11:38 AM EDT A Body Mass Index follow-up plan has been documented for the patient 02/05/2025 12:06 PM EDT documented as of this encounter Care Teams Coin Machine Collector Relationship Specialty Start Date End Date Luis Hatfield MD [address] [place] [address] PCP - General 07/24/24 documented as of this encounter
--- OUTSIDE RECORDS SUMMARY | 2025-02-17 11:28 | XMS_ITS | Encounter Summary ---
Author Organization Healthcare Address [address] [place] [address] Care Team Providers Care Cyber Security Name Role Phone Luis Hatfield MD Primary Care Provider [phone] Reason for Visit * Auth/Cert (Routine) Specialty Diagnoses / Procedures Referred By Stephen parks Referred To Contact Diagnoses Other hydronephrosis Other hydronephrosis [N13.39] Procedures SC PLMT NEPHROSTOMY CATH PRQ NEW ACCESS RS&I CHG X-RAY RETROGRADE PYELOGRAM SC CYSTOSCOPY,INSERT URETERAL STENT CYSTOSCOPY, WITH URETERAL STENT REPLACEMENT TURBT, USING BIPOLAR CAUTERY PROBE, WITH SALINE IRRIGATION Ochoa Matias MD [address] [address] Phone: tel: fax: PAV A OPERATING ROOM [address] [place] [address] Phone: tel: Referral ID Status Reason Start Date Expiration Date Visits Re quested Visits Authorized [id number] 1 1 Encounter Details Date Type Department Care Team (Latest Contact Info) Description 02/17/2025 11:28 AM EDT - 02/17/2025 3:25 PM EDT Hospital Encounter P[facility] A OPERATING ROOM [address] [place] [address] Ochoa Matias MD [address] [place] [phone] Other hydronephrosis (Primary Dx) Discharge Disposition: [...] any time in the past 12 m [facility], were you homeless or [...] drink first t kimberlyn in the morning (EYE-MARKETING COMPLIANCE MANAGER) to steady your nerves or to [...] confirm your location ahead of your appointment) [facility] Urology Department [facility] at [facility] [address], 2nd Floor, Wing C, [address] [place] [address] Clinic After Hours [facility] Building Urology Clinic [address] [facility] [address] [place] [address] Clinic After Hours documented in this encounter [...] 1 tablet by mouth daily. HYDROcodone-acet aminophen (Wann) 5-325 MG tablet Take 1-2 tablets by [...] Postoperative Diagnosis: Same Surgeon: Ochoa Matias MD Double End Tenon Operator Surgeon: Michael Hardin DO Intraoperative Findings: Cystoscopy [...] the nephrostomy tube and removed it. A [place] catheter was advanced over the wire and [...] was removed. We then advanced a 6 [place] by 24 cm ureteral stent without strings [...] Hardin DO PGY-3, Department of Urology Pager: [phone] * H&P - Michael Hardin DO - [...] Hardin, DO PGY-3, Department of Urology Pager: [phone] [1] Past Medical History: Diagnosis Date Cancer [...] 1 tablet by mouth daily. 02/16/2025 HYDROcodone-acetaminophen (Wann) 5-325 MG tablet Take 1-2 tablets by [...] welcome you, your family, and friends to [facility]. We offer access to more than [...] will help you be more comfortable with [facility] and the surgical process. This information [...] 8 a.m. to 4:30 p.m. A clinic technical support representative can be reached at [phone]. Parking is available in the [facility] garage on [facility] or in the [facility] garage located at [address], directly across [facility] from [facility]. The day before surgery You will receive a phone call telling you what time you need to arrive at the hospital for surgery.If you miss the call, please call one of the following numbers (depending on where your surgery is scheduled): ? [facility]: [phone] or [phone] ? [facility] Surgery: [phone] or [phone] The day of surgery ? Arrive on time to avoid delays or cancellation. ? Park in the [facility] parking garage located at [address] It is directly across [facility] from the [facility]. ? If you are scheduled for surgery at [facility], take the hospital garage elevator to Level C, then cross the concourse bridge to the Surgery Waiting Room to register for your surgery. [facility] is located down the first hallway to the right at the end of the concourse bridge. If you need help crossing the concourse, you may pick out hand the patient golf cart shuttle directlyto the right of the elevators on Level C. ? If you are scheduled for surgery at the [facility] Advanced Surgery, take the garage elevator to [...] checked many times throughout your stay at [facility] to ensure your safety. ? Go [...] talk to them after your surgery. A accounting clerks supervisor is available in the waiting room to [...] living will, health care surrogate, power of steel chipper or guardianship papers. ? Bring a responsible [...] makeup, jewelry (including body piercing) or nail haitian. ? Don?t bring money or valuables to [...] office and the Preoperative Anesthesia Clinic at [phone] or [phone]. If it is the day of surgery, call the location where you are scheduled to have your surgery: [facility] at [phone] or [phone] or [facility] at [phone] or [phone]. For more information Visit www.[facility] or call [phone] or [phone]. [facility] does not discriminate. [facility] complies with applicable Federal civil rights laws and does not discriminate on the basis of race, color, national origin, age, disability, or sex. * Dagoberto Terrazas - Evita Sánchez RN - 02/13/2025 1:20 PM EDT Images from the original note were not included. 489 Map to [facility] Facilities Directions Easy directions to and from I-75/I-64 (from [address]) Directions from I-75/I-64 to the [facility] Parking Garage: ? From [address], turn right off the exit ramp onto [address] ([place] [address]/[place] [address]) toward [place]. ? In 4.1 miles, turn left onto [address] (at the [employer] gas station). ? In a half-mile, turn right onto [address]. ? In .3 miles, turn right onto [address] (just past the [employer] gas station). Garage entrance is on the left. ? Important: This garage address will change to [address] [place] [address] on December 10, 2024. Directions from HealthCare Parking Garage to I-75/I-64: ? Turn left out of the garage onto [address]. ? Turn left onto [address]. ? In .3 miles, turn left down [address] ? In a half-mile, turn right onto [address] (at the [employer] gas station). ? In 4.1 miles, merge onto I-64 /I-75 (near the [facility] by [employer]). Parking Any patients or visitors of [facility] can park in the following areas: ? [facility] Parking Garage (main garage): [address] (Levels A-F) ? [facility] Garage: [address] (Levels 1-6) ? [facility] Cancer lot: Located off [employer] (limited parking for [facility] outpatients only). Upon Your Arrival ? Patients and visitors going to Pav[facility] A, H, and [facility] may walk across the pedway, located at [...] also be accessed via the pedway off [facility] garage on Level C. If you need a shuttle to the ED, one can be called for you at Level A of the main garage or contact any of the information desks, . Additional Information For additional information, please visit our information desks located throughout Healthcare. Information desks have additional maps and resources. Information desks are located at the main entrances of: [facility] (first floor and ground floor), [facility], [facility] H, [facility] CC, [facility] WH, [facility] (first and third floor), and [facility]. Informationdesk number: [phone]. Important Addresses [address] [facility] ? [facility] entrance ? Pavilion A ? Pavilion G ([facility]) ? Emergency Department [address] ? Pavilion H ? Pavilion CC ([facility]) ? [facility]ilion WH ([facility]) ? [facility] [address] [facility] ? [facility] [address] [facility] ? [facility] [address] [facility] ? [facility] ? [facility] * Preprocedure Instructions - Evita Sánchez RN - 02/13/2025 1:18 PM EDT Home Medication Instructions Current Medications Medication Instructions ascorbic acid (vitamin C) 1000 MG tablet Hold day of surgery buPROPion (Wellbutrin) 75 MG tablet Take morning of surgery Ferrous Sulfate (IRON PO) Hold day of surgery HYDROcodone-acetaminophen (Wann) 5-325 MG tablet Take as needed hydroxychloroquine [...] card, photo ID, along with power of steel chipper, guardianship or advanced directives if applicable Do not bring money, jewelry or other valuables Hibiclens bathing instructions reviewed if applicable Notify surgeon of fever, illness, any changes or if you decide not to have surgery Registration will be on the first floor of [facility]) at the end of the bridge from the parking garage, the hallway on the RIGHT. Parking Garage Address: [address] [place] [address]. * PAT Phone Note - Evita Sánchez [...] [facility] Clinic [address] [place] [address] Lauren Christine PA [address] [place] [id number] documented as of this encounter Procedures Procedure [...] Tobacco use disorder SLE (systemic lupus erythematosus) ([facility]) Systemic lupus erythematosus documented in this [...] documented as of this encounter Care Teams Cyber Security Relationship Specialty Start Date End Date Luis Hatfield MD [address] [place] [address] PCP - General 07/24/24 documented as of this encounter
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
--- OUTSIDE RECORDS SUMMARY | 2025-02-17 14:07 | XMS_ITS | Encounter Summary ---
Author Organization Healthcare Address [address] [place] [address] Care Team Providers Care Breakfast Cook Name Role Phone Luis Hatfield MD Primary Care Provider [phone] Reason for Visit * Auth/Cert (Routine) Specialty Diagnoses / Procedures Referred By Stephen parks Referred To Contact Diagnoses Other hydronephrosis Other hydronephrosis [N13.39] Procedures CA PLMT NEPHROSTOMY CATH PRQ NEW ACCESS RS&I CHG X-RAY RETROGRADE PYELOGRAM CA CYSTOSCOPY,INSERT URETERAL STENT CYSTOSCOPY, WITH URETERAL STENT REPLACEMENT TURBT, USING BIPOLAR CAUTERY PROBE, WITH SALINE IRRIGATION Ochoa Matias MD [address] [facility] [address] [place] [address] Phone: tel: fax: [facility] A OPERATING ROOM [address] [place] [address] Phone: tel: Referral ID Status Reason Start Date Expiration Date Visits Re quested Visits Authorized [id number] 1 1 Encounter Details Date Type Department Care Team (Late st Contact Info) Description 02/17/2025 2:07 PM EDT Anesthesia Event [facility] A OPERATING ROOM [address] [place] [address] Bisi Restrepo CRNA, CAMRYN [address] [place] [address] Perla Dupont CRNA [address] [place] [address] Anesthesia Record Procedure Summary Procedure [...] Forearm; Site Prep: Chlorhexidine ; Local Anesth: [place]; Technique: Anatomical landmarks; Inserted by: rosemary houston [...] No change to dentition. ; Placed by: CRITICAL CARE REGISTERED NURSE; Removal Date: 02/17/25; Removal Time: 1517 02/17/25 1417 by Bisi Restrepo CRNA, [facility] 02/17/25 1517 by Lucie Cotton MD Ureteral [...] drink first t kimberlyn in the morning (EYE-WATCH TRAIN INSPECTOR) to steady your nerves or to get rid of a hangover? 0 09/11/2024 CAGE Questionnaire Score 0 025 Utilities Answer Date Recorded In the past 12 months has th e electric, gas, oil, or water [employer] threatened to shut off services in your [...] and Staff Patient location during procedure: [place] CRITICAL CARE REGISTERED NURSE: Bisi Restrepo CRNA, DNP Performed: DELROY Patient [...] 1:11 PM EDT Anesthesiologist: Joey Meier MD CRITICAL CARE REGISTERED NURSE: Bisi Restrepo CRNA, DNP Patient: Corrie Rosenthal [facility] Procedure Information Date/Time: 02/17/25 1326 Procedures: [...] Sulfate (IRON PO) 1 tablet, Daily HYDROcodone-acetaminophen ([place]) 5-325 MG tablet 5-10 mg of hydrocodone, [...] ABG No results found for: PHART , BJI8NAO , PO2ART , SO2ART , BEART , MDB4UOS , HCTART , SODIUMART , POTASSIUMART , POCTCL , POCGLU , IONCALART , LACTATE Lab Results Component Value Date HCTSYR 25.6 (L) 07/22/2024 KSYR 4.2 07/22/2024 CLSYR 102 07/22/2024 GLUSYR 97 07/22/2024 CAION 4.8 07/22/2024 ECHO No echocardiogram results found for the past 12 months PFTs No results found for: OCI9PKA , URE9DMHW , LIG7ZMP , FVCPRED BP Readings from Last 5 [...] [2] Past Medical History: Diagnosis Date Cancer ([facility]) bladder cancer - CURRENTLY ON CHEMO - LAST DOSE 02/13/25 Dental disease partial on bottom - top dentures History of blood transfusion 06/2024 no reactions Hyperlipidemia Hypertension Lupus (systemic lupus erythematosus) ([facility]) Other specified fracture of unspecified pubis, initial encounter for closed fracture ([facility]) Pubic ramus fracture Other specified health status [...] 05/14/2025 10:40 AM EST Office Visit [facility] Multidisciplinary Oncology Clinic [address] [place] [address] Lauren Christine, ESTELLE [address] [facility] [address] [place] [address] documented as of this encounter Procedures Procedure Name Priority Date/Time Associated Diagnosis Comments PB ANESTHESIA PLACEHOLDER Routine 02/17/2025 2:17 PM EDT CA AN ELECTIVE ENDOTRACHEAL AIRWAY Routine 02/17/2025 2:17 PM EDT documented in this encounter Results * CA AN ELECTIVE ENDOTRACHEAL AIRWAY, PB ANESTHESIA PLACEHOLDER (02/17/2025 2:17 PM EDT) Narrative Bisi Restrepo CRNA, DNP - 02/17/2025 2:17 PM EDT Bisi Restrepo CRNA, DNP 02/17/2025 2:25 PM Airway Date/Time: 02/17/2025 2:17 PM Reason: elective Airway not difficult General Information and Staff Patient location during procedure: OR CRITICAL CARE REGISTERED NURSE: Bisi Restrepo CRNA, DNP Performed: CRITICAL CARE REGISTERED NURSE Patient Condition Indications for airway management: anesthesia [...] documented as of this encounter Care Teams Breakfast Cook Relationship Specialty Start Date End Date Luis Hatfield MD [address] [place] [address] PCP - General 07/24/24 documented as of this encounter
--- OUTSIDE RECORDS SUMMARY | 2025-03-27 09:27 | XMS_ITS | Encounter Summary ---
Author Organization [facility] Address [address] [place] [address] Care Team Providers Care Fireproof Door Assembler Name Role Phone Luis Hatfield MD Primary Care Provider [phone] Encounter Details Date Type Department Care Team [...] any time in the past 12 m [facility], were you homeless or living in [...] drink first t kimberlyn in the morning (EYE-SALESFORCE TRAINER) to steady your nerves or to get rid of a hangover? 0 09/11/2024 CAGE Questionnaire Score 0 025 Utilities Answer Date Recorded In the past 12 months has th e [employer], gas, oil, or water company threatened [...] things Not at all 02/05/2025 11:38 AM EDZina Martin Feeling down, depressed, or hopeless Not at [...] difficult at all 02/05/2025 11:38 AM Zina Palencia documented as of this encounter Plan of Treatment Upcoming Encounters Date Type Department Care Team (Late st Contact Info) Description 05/14/2025 10:40 AM EST Office Visit [facility] Multidisciplinary Oncology Clinic [address] [place] [phone] Lauren Christine, ESTELLE [address] [facility] [address] [place] [address] documented as of this encounter Visit Diagnoses [...] documented as of this encounter Care Teams Fireproof Door Assembler Relationship Specialty Start Date End Date Luis Hatfield MD [address] [facility] [address] [place] [address] PCP - General 07/24/24 documented as of this encounter
--- OUTSIDE RECORDS SUMMARY | 2025-03-27 09:27 | XMS_ITS | Clinical Summary ---
Author Organization [facility] Address [address] [place] [address] Care Team Providers Care Reception Centre Manager Name Role Phone Luis Hatfield MD Primary Care Provider [phone] Allergies Active Allergy Reactions Criticality Noted Date [...] DNA 13.0 (<4.0), Centromere and Chromatin normal, SPANISH INTERPRETER/TRANSLATOR and SCL 70 normal, Christine normal, SSA and SSB normal, total bilirubin 1.4, Glucose 117, CMP was ok otherwise, CCP negative, CRP Normal, RF 110 (<14.0 normal), ESR normal, TSH normal * Medications/treatments/interventions tried include: Tylenol, meloxicam, Advil, CBD oil, Tumeric, Aspirin, Plaquenil, she has seen podiatry (Miky Steele DPM), she has seen traffic line painter (Dr. Jed Trevino), Ketamine, gabapentin, She [...] DNA 13.0 (<4.0), Centromere and Chromatin normal, SPANISH INTERPRETER/TRANSLATOR and SCL 70 normal, Christine normal, SSA and SSB normal, total bilirubin 1.4, Glucose 117, CMP was ok otherwise, CCP negative, CRP Normal, RF 110 (<14.0 normal), ESR normal, TSH normal * Medications/treatments/interventions tried include: Tylenol, meloxicam, Advil, CBD oil, Tumeric, Aspirin, Plaquenil, she has seen podiatry (Miky Steele DPM), she has seen traffic line painter (Dr. Jed Trevino), Ketamine, gabapentin, She [...] DNA 13.0 (<4.0), Centromere and Chromatin normal, SPANISH INTERPRETER/TRANSLATOR and SCL 70 normal, Christine normal, SSA and SSB normal, total bilirubin 1.4, Glucose 117, CMP was ok otherwise, CCP negative, CRP Normal, RF 110 (<14.0 normal), ESR normal, TSH normal * Medications/treatments/interventions tried include: Tylenol, meloxicam, Advil, CBD oil, Tumeric, Aspirin, Plaquenil, she has seen podiatry (Miky Steele DPM), she has seen traffic line painter (Dr. Jed Trevino), Ketamine, gabapentin, She [...] Department Care Team Description 01/28/2025 Results Follow-Up [facility] RHE[facility] [address] [place] [phone] Nguyen Romero APRN 12/26/2024 10:30 AM EDT Office Visit [facility] [address] [place] [phone] Nguyen Romero APRN Seropositive rheumatoid arthritis (Primary Dx); Systemic lupus erythematosus, unspecified SLE type, unspecified organ involvement status; High risk medication use; Primary osteoarthritis involving multiple joints; NSAID long-term use 12/26/2024 Results Follow-Up [facility] R[facility] [address] [place] [phone] Vicente Wells, 12/26/2024 Results Follow-Up [facility] RHE[facility] [address] [phone] Vicente Wells, 12/26/2024 Travel from Last 3 [...] 07/09/2025 10:45 AM EST Office Visit [facility] R[facility] [address] [address] Vicente Wells, DO [address] [address] Health Maintenance Due Date Last Done Comments DXA SCAN 1955 MAMMOGRAM 1994 COLOGUARD 1999 COLON CANCER SCREENING 5 YEA R SIGMOIDOSCOPY 1999 CT COLONOGRAPHY 1999 FECAL OCCULT BLOOD TEST 1999 FIT Testing (1 year) 1999 TDAP/TD VACCINES (2 - Tdap) 08/15/2006 08/15/1996 ZOSTER VACCINE (2 of 2) 04/16/2020 02/20/2020 ANNUAL WELLNESS VISIT 10/31/2023 INFLUENZA VACCINE 01/10/2025 COVID-19 Vaccine (1 - season) 2025 Pneumococcal Vaccine 50+ (2 of 2 - [...] unspecified SLE type, unspecified organ involvement status from Last 3 Months Results * LABS SCANNED (01/17/2025) Only the most recent of5 resultswithin the time period is included. Nguyen Romero APRN LAB BLOOD ORDERABLES F inal Result * Hydroxychloroquine, Whole Blood (01/17/2025) Blood us Nguyen Romero APRN LAB BLOOD ORDERABLES F inal Result [facility] (AMBULATORY) [address] [place] [address], [place] [phone] from Last 3 Months Insurance [employer] PPO Care Teams Reception Centre Manager Relationship Specialty Start Date End Date Luis Hatfield MD [address] [facility] [address] [facility] [address] [facility] PCP - General Family Medicine 06/13/24
--- OUTSIDE RECORDS SUMMARY | 2025-03-27 09:27 | XMS_ITS | Encounter Summary ---
Author Organization Healthcare Address [address] [place] [address] Care Team Providers Care Hatchery Manager Name Role Phone Luis Hatfield MD Primary Care Provider [phone] Encounter Details Date Type Department Care Team (Late st Contact Info) Description 03/04/2025 Telephone [facility] Interventional Radiology [address] [place] [address] Sunil Marrufo, RN Social History Tobacco Use Types Packs/Day Years [...] any time in the past 12 m [facility], were you homeless or [...] drink first t kimberlyn in the morning (EYE-STENOGRAPHER PRINT SHOP) to steady your nerves or to get [...] [facility] [address] [place] [address] Lauren Christine PA [address] [place] [address] documented as of this encounter Visit Diagnoses [...] documented as of this encounter Care Teams Hatchery Manager Relationship Specialty Start Date End Date Luis Hatfield MD [address] [facility] [address] [place] [address] PCP - General 07/24/24 documented as of this encounter
--- OUTSIDE RECORDS SUMMARY | 2025-03-27 09:27 | XMS_ITS | Encounter Summary ---
Author Organization Healthcare Address [address] [place] [address] Care Team Providers Care Concrete Journeyman Name Role Phone Luis Hatfield MD Primary Care Provider [phone] Encounter Details Date Type Department Care Team (Late st Contact Info) Description 02/21/2025 Telephone [facility] [address] [place] [address] Ochoa Matias MD [address] [facility] [address] [place] [address] Social History Tobacco Use Types Packs/Day Years [...] drink first t kimberlyn in the morning (EYE-GROUND CREW CHIEF) to steady your nerves or to get [...] Telephone Encounter - Monserrat Tay RN - 02/21/2025 12:04 PM EDT Called and discussed with patient that recommendation is not to get in any standing water such as abath tub or hot tub while wounds are open which is typically 7-10 days. Notified that she is ok to get in once wounds are fully closed. Patient stated understanding. * Telephone Encounter - Eshter Gaines - 02/21/2025 8:50 AM EDT Patient Phone Message Reason for Call: Patient had tubes taken out on Monday and asking if she is asking to take a bath and or get in a hot tub. Best contact number and optimal time of day to reach caller: [phone] Note: Please do not reply to this message. Follow-up communication and further actions as a result of this message need to be communicated with the patient directly, if the patient is not active onMyChart. If the patient is active on MyChart, they will receive notification of the communication/outcome via [employer]. documented in this encounter Plan of Treatment Upcoming Encounters Date Type Department Care Team (Late st Contact Info) Description 05/14/2025 10:40 AM EST Office Visit [facility] [address] [place] [address] Lauren Christine PA [address] [facility] [address] [place] [address] documented as of this encounter Visit Diagnoses [...] documented as of this encounter Care Teams Concrete Journeyman Relationship Specialty Start Date End Date Luis Hatfield MD [address] [place] [address] PCP - General 07/24/24 documented as of this encounter
--- OUTSIDE RECORDS SUMMARY | 2025-03-27 09:27 | XMS_ITS | Encounter Summary ---
Author Organization Healthcare Address [address] [place] [address] Care Team Providers Care Catalytic Case Operator Name Role Phone Luis Hatfield MD Primary Care Provider [phone] Encounter Details Date Type Department Care Team (Late st Contact Info) Description 02/11/2025 Telephone [facility] [address] [place] [address] Ochoa Matias MD [address] [place] [address] Social History Tobacco Use Types [...] drink first t kimberlyn in the morning (EYE-BINDING NICKER) to steady your nerves or to get [...] 05/14/2025 10:40 AM EST Office Visit [facility] Multidisciplinary Oncology Clinic [address] [place] [address] Lauren Christine PA [address] [place] [address] documented as of this encounter Visit Diagnoses [...] documented as of this encounter Care Teams Catalytic Case Operator Relationship Specialty Start Date End Date Luis Hatfield MD [address] [facility] [address] [place] [address] PCP - General 07/24/24 documented as of this encounter
--- OUTSIDE RECORDS SUMMARY | 2025-03-27 09:27 | XMS_ITS | Encounter Summary ---
Author Organization [facility] Address [address] [id number] Care Team Providers Care Economic Analyst Name Role Phone Luis Hatfield MD Primary Care Provider [phone] Reason for Visit * Reason Onset Date Comments [facility] Nurse Liaison call 02/06/2025 Encounter Details Date Type Department Care Team (Late st Contact Info) Description 02/06/2025 Telephone [facility] Multidisciplinary Oncology Clinic [address] [place] [address] [place] [address] [facility] Nurse Liaison call Social History Tobacco [...] drink first t kimberlyn in the morning (EYE-LEASING ASSOCIATE) to steady your nerves or to get rid of a hangover? 0 09/11/2024 CAGE Questionnaire Score 0 025 Utilities Answer Date Recorded In the past 12 months has th e [employer], gas, oil, or water company threatened to [...] Pritchard : 1955 Date: 02/06/25 Referred to [facility] by: Dr. Magdiel Henderson Affiliate Site: [facility] Services Provided: Pre/Post Appointment Phone Call Educated On: [facility] Nurse Liaison/Psych Oncology Services Patient was referred to [facility] by her local medical oncologist for a urology follow up. [facility] Nurse Liaison contacted the patient for a pre and post appointment phone call. Explained liaison services aswell as other resources at [facility] including Psych Oncology services. Patient well established with Dr. Matias and aware of resources. Patient has clinic number and was given liaison contact information and encouraged to call with any questions, needs or concerns. Sridevi Ellis RN [facility] documented in this encounter Plan of Treatment Upcoming Encounters Date Type Department Care Team (Late st Contact Info) Description 05/14/2025 10:40 AM EST Office Visit [facility] Multidisciplinary Oncology Clinic [address] [place] [address] Lauren Christine PA [address] [place] [address] documented as of this encounter Visit Diagnoses [...] documented as of this encounter Care Teams Economic Analyst Relationship Specialty Start Date End Date Luis Hatfield MD [address] [facility] [address] [place] [id number] PCP - General 07/24/24 documented as of this encounter
--- OUTSIDE RECORDS SUMMARY | 2025-03-27 09:28 | XMS_ITS | Encounter Summary ---
Author Organization [facility] Address [address] [place] [address] Care Team Providers Care Computer Numerical Control Machinist Name Role Phone Luis Hatfield MD Primary Care Provider [phone] Encounter Details Date Type Department Care Team [...] time in the past 12 m [facility], were you homeless or living in a [...] drink first t kimberlyn in the morning (EYE-SCIENCE TECHNICIAN) to steady your nerves or to get rid of a hangover? 0 09/11/2024 CAGE Questionnaire Score 0 025 Utilities Answer Date Recorded In the past 12 months has th e [employer], gas, oil, or water company threatened to [...] Office Visit [facility] [address] [place] [address] Lauren Christine PA [address] [place] [address] documented as of this encounter Visit Diagnoses [...] documented as of this encounter Care Teams Computer Numerical Control Machinist Relationship Specialty Start Date End Date Luis Hatfield MD [facility] [address] [address] PCP - General 07/24/24 documented as of this encounter
--- OUTSIDE RECORDS SUMMARY | 2025-03-27 09:28 | XMS_ITS | Encounter Summary ---
Author Organization [facility] Address [address] [place] [address] Care Team Providers Care Lead Generation Marketing Manager Name Role Phone Luis Hatfield MD Primary Care Provider [phone] Encounter Details Date Type Department Care Team (Late Contact Info) Description 12/26/2024 Results Follow-Up [facility] RHEUMATOLOGY [address] [address] Vicente Wells DO [address] [address] Social History Tobacco Use Types Packs/Day Years [...] Visit [facility] RHE[facility] [address] [address] Vicente Wells DO [address] [phone] documented as of this encounter Visit Diagnoses Not on filedocumented in this encounter Care Teams Lead Generation Marketing Manager Relationship Specialty Start Date End Date Luis Hatfield MD [address] [place] [address] [place] [address] PCP - General Family Medicine 06/13/24 documented as of this encounter
--- OUTSIDE RECORDS SUMMARY | 2025-03-27 09:28 | XMS_ITS | Encounter Summary ---
Author Organization Healthcare Address [address] [place] [address] Care Team Providers Care Lithograph Press Feeder Name Role Phone Luis Hatfield MD Primary Care Provider [phone] Encounter Details Date Type Department Care Team (Late st Contact Info) Description 02/14/2025 Telephone [facility] [address] [place] [address] Ochoa Matias MD [address] [place] [phone] Social History Tobacco Use Types Packs/Day Years [...] in the past 12 m [facility], were you homeless or living in a [...] drink first t kimberlyn in the morning (EYE-SUPERVISOR PARK WORKERS) to steady your nerves or to get [...] Tay RN - 02/14/2025 2:06 PM EDT flight crew scheduler reached out to patient who was contacted by hospital to notify of arrival time. No further questions at this time. * Telephone Encounter - Maury Lebron - 02/14/2025 1:10 PM EDT Patient Phone Message Reason for Call: Ms. Pritchard is calling to [facility] Best contact number and optimal time of day to reach caller: [phone] Note: Please do not reply to this [...] Description 05/14/2025 10:40 AM EST Office Visit [facility] Multidisciplinary Oncology Clinic [address] [place] [address] Lauren Christine PA [address] [place] [address] documented as of this encounter Visit Diagnoses [...] documented as of this encounter Care Teams Lithograph Press Feeder Relationship Specialty Start Date End Date Luis Hatfield MD [address] [address] PCP - General 07/24/24 documented as of this encounter
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
--- OUTSIDE RECORDS SUMMARY | 2025-03-27 09:28 | XMS_ITS | Encounter Summary ---
Author Organization Healthcare Address [address] [place] [address] Care Team Providers Care Aerodynamic Consultant Name Role Phone Luis Hatfield MD Primary Care Provider [phone] Encounter Details Date Type Department Care Team (Late st Contact Info) Description 08/19/2024 Lab Requisition [facility] [address] [place] [address] Ochoa Matias MD [address] [place] [address] Malignant neoplasm of bladder, unspecified (CMS/HCC) Social History Tobacco Use Types Packs/Day Years Used Date Smoking Tobacco: Every Day Cigarettes 0.5 25.8 Started: 1999 Smokeless Tobacco: Never Alcohol Use [...] in a senior living (including now)? No 07/24/2024 CAGE ASSESSMENT Answer [...] drink first t kimberlyn in the morning (EYE-FINANCIAL ASSISTANCE SPECIALIST) to steady your nerves or to [...] Description 05/14/2025 10:40 AM EST Office Visit [facility] Multidisciplinary Oncology Clinic [address] [place] [address] Lauren Christine PA [address] [place] [address] documented as of this encounter Procedures Procedure [...] AM EDT [facility] Comment:[id number], A3 Test Result see scan 09/05/2024 7:35 AM EDT [facility] See Scanned Result 09/05/2024 7:35 AM EDT [facility] Tissue 07/23/2024 1:18 PM EST 08/19/2024 1:48 PM EDT us Ochoa Matias MD LAB REF LAB BLOOD AND FLUID ORD Final Result [facility] [address] [place] [address] * - AP Miscellaneous Test (07/23/2024 1:18 PM EST) Test name Viviane Keith 09/09/2024 8:04 AM EDT [facility] Comment:[id number], A3 Test Result see scan 09/09/2024 8:04 AM EDT [facility] See Scanned Result 09/09/2024 8:04 AM EDT [facility] Tissue 07/23/2024 1:18 PM EST 08/19/2024 1:48 PM EDT us Ochoa Matias MD LAB REF LAB BLOOD AND FLUID ORD Final Result [facility] [address] [place] [address] documented in this encounter Visit Diagnoses Diagnosis Malignant neoplasm of bladder, unspecified (CMS/HCC) documented in this encounter Additional Health Concerns Assessment Noted Time A Body Mass Index follow-up plan has been documented for the patient 07/25/2024 1:21 PM EST documented as of this encounter Care Teams Aerodynamic Consultant Relationship Specialty Start Date End Date Luis Hatfield MD [facility] [place] [address] PCP - General 07/24/24 documented as of this encounter
--- OUTSIDE RECORDS SUMMARY | 2025-03-27 09:28 | XMS_ITS | Encounter Summary ---
Author Organization [facility] Address [address] [id number] Care Team Providers Care Exhauster Name Role Phone Luis Hatfield MD Primary Care Provider Encounter Details Date Type Department Care Team ([facility] Contact Info) Description 07/12/2024 Telephone [facility] RHEUMATOLOGY [address] [address] Santiago Anders MD [address] [id number] Social History Tobacco Use Types Packs/Day Years [...] Visit [facility] RHE[facility] [address] [address] Vicente Wells DO [address] [address] documented as of this encounter Visit Diagnoses Not on filedocumented in this encounter Care Teams Exhauster Relationship Specialty Start Date End Date Luis Hatfield MD [address] [facility] [address] [place] [id number] PCP - General Family Medicine 06/13/24 documented as of this encounter
--- OUTSIDE RECORDS SUMMARY | 2025-03-27 09:28 | XMS_ITS | Encounter Summary ---
Author Organization [facility] Address [address] [place] [address] Care Team Providers Care Geospatial Program Management Officer Name Role Phone Luis Hatfield MD Primary Care Provider [phone] Encounter Details Date Type Department Care Team (Late Contact Info) Description 01/28/2025 Results Follow-Up [facility] RHEUMATOLOGY [address] [address] Nguyen Romero APRN [address] [id number] Social History Tobacco Use Types Packs/Day Years [...] Description 07/09/2025 10:45 AM EST Office Visit [facility] RHEUMATOLOGY [address] [address] Vicente Wells DO [address] [id number] documented as of this encounter Visit Diagnoses Not on filedocumented in this encounter Care Teams Geospatial Program Management Officer Relationship Specialty Start Date End Date Luis Hatfield MD [address] [address] [address] [facility] [address] [place] [address] PCP - General Family Medicine 06/13/24 documented as of this encounter
--- OUTSIDE RECORDS SUMMARY | 2025-03-27 09:28 | XMS_ITS | Encounter Summary ---
Author Organization [facility] Address [address] [id number] Care Team Providers Care Wedding Planning Internship Name Role Phone Luis Hatfield MD Primary Care Provider [phone] Encounter Details Date Type Department Care Team (Late Contact Info) Description 07/12/2024 Telephone [facility] RHEUMATOLOGY [address] [address] Vicente Wells DO [address] [phone] Social History Tobacco Use Types Packs/Day Years [...] Description 07/09/2025 10:45 AM EST Office Visit [facility] RHEUMATOLOGY [address] [address] Vicente Wells DO [address] [phone] documented as of this encounter Visit Diagnoses Not on filedocumented in this encounter Care Teams Wedding Planning Internship Relationship Specialty Start Date End Date Luis Hatfield MD [address] [facility] [address] [place] [address] PCP - General Family Medicine 06/13/24 documented as of this encounter
--- OUTSIDE RECORDS SUMMARY | 2025-03-27 09:29 | XMS_ITS | Encounter Summary ---
Author Organization [facility] Address [address] [place] [address] Care Team Providers Care Software Applications Architect Name Role Phone Luis Hatfield MD Primary Care Provider [phone] Encounter Details Date Type Department Care Team [...] the past 12 m [facility], were you homeless or living in [...] drink first t kimberlyn in the morning (EYE-BULK PLANT MANAGER) to steady your nerves or to get rid of a hangover? 0 09/11/2024 CAGE Questionnaire Score 0 025 Utilities Answer Date Recorded In the past 12 months has th e adicate timeads, gas, oil, or water company threatened to [...] No Risk Indicated 01/27/2025 12:11 PM EDT Willia Amira higginbotham, RN * Question Answer Date of Assessment Author 1. Wish to be (Past 1 Month) No 01/27/2025 12:11 PM EDT Aubrey Jules, RN 2. Non-Specific Active Suicidal Thoughts (Past 1 Month) No 01/27/2025 12:11 PM EDT Aubrey Jules, RN 6. Suicidal Behavior (Lifetime) No 01/27/2025 12:11 PM EDT Aubrey Jules, RN documented as of this encounter Plan of Treatment Upcoming Encounters Date Type Department Care Team (Late st Contact Info) Description 05/14/2025 10:40 AM EST Office Visit [facility] Multidisciplinary Oncology Clinic [address] [place] [address] Lauren Christine PA [address] [place] [address] documented as of this encounter Visit Diagnoses [...] documented as of this encounter Care Teams Software Applications Architect Relationship Specialty Start Date End Date Luis Hatfield MD [address] [place] [address] PCP - General 07/24/24 documented as of this encounter
--- OUTSIDE RECORDS SUMMARY | 2025-03-27 09:29 | XMS_ITS | Encounter Summary ---
Author Organization [facility] Address [address] [place] [address] Care Team Providers Care Compliance Review Officer Name Role Phone Luis Hatfield MD Primary Care Provider [phone] Encounter Details Date Type Department Care Team (Late st Contact Info) Description 01/27/2025 Telephone [facility] [address] [place] [address] Ochoa Matias MD [address] [facility] [address] [place] [address] Social History Tobacco Use Types Packs/Day Years [...] drink first t kimberlyn in the morning (EYE-PLUMBING DRAFTER) to steady your nerves or to get [...] optimal time of day to reach caller: [phone] Note: Please do not reply to this message. Follow-up communication and further actions as a result of this message need to be communicated with the patient directly, if the patient is not active onMyChart. If the patient is active on MyChart, they will receive notification of the communication/outcome via [email or web address]. documented in this encounter Plan of Treatment Upcoming Encounters Date Type Department Care Team (Late st Contact Info) Description 05/14/2025 10:40 AM EST Office Visit [facility] [address] [place] [address] Lauren Christine [facility] [address] [facility] [address] [place] [address] documented as of this encounter Visit Diagnoses [...] documented as of this encounter Care Teams Compliance Review Officer Relationship Specialty Start Date End Date Luis Hatfield MD [address] [place] [address] PCP - General 07/24/24 documented as of this encounter
--- OUTSIDE RECORDS SUMMARY | 2025-03-27 09:29 | XMS_ITS ---
Author Organization [facility] Address [address] [place] [address] Care Team Providers Care Administrative Services Specialist Name Role Phone Luis Hatfield MD Primary Care Provider [phone] Active Problems Problem Noted Date Diagnosed Date HTN (hypertension) 02/17/2025 Sleep apnea 02/17/2025 Smoker 02/17/2025 SLE (systemic lupus erythematosus) 02/17/2025 Tobacco use disorder 02/05/2025 Second hand smoke exposure 02/05/2025 Other hydronephrosis 02/05/2025 Bladder cancer 07/25/2024 Assessment & Plan (12/20/2024 [...] Problem Noted Date Diagnosed Date Resolved Date Urinary tract infection 09/21/202402/11 VINCENZO (acute kidney injury) 09/11/2024 Acute blood loss anemia 07/22/202407/13 Bladder mass 07/22/2024 07/25/2024
--- OUTSIDE RECORDS SUMMARY | 2025-03-27 09:29 | XMS_ITS | Clinical Summary ---
Author Organization [facility] Address [address] [place] [address] Care Team Providers Care Skidder Name Role Phone Luis Hatfield MD Primary Care Provider [phone] Allergies Active Allergy Reactions Criticality Noted Date [...] time each day. 4 Active HYDROcodone-ac etaminophen (Dakota) 5-325 MG tablet Take 1-2 tablets by mouth every 8 hours as needed. Active ascorbic acid (vitamin C) 1000 MG tablet Take 1 tablet by mouth daily. Active acetaminophen (Tylenol) 500 MG tablet Take 2 tablets by mouth every 6 hours as needed for pain. 20 tablet 5 Active ibuprofen 600 MG tablet Take 1 tablet by mouth every 6 hours as needed for mild pain for up to 10 days. 15 tablet 5 02/28/20 25 Active Problems Problem Noted Date Diagnosed Date [...] Encounters Date Type Department Care Team Description 03/04/2025 Telephone [facility] Interventional Radiology [address] [place] [address] Sunil Marrufo RN 02/21/2025 Telephone [facility] [address] [place] [address] Ochoa Matias MD 02/17/2025 2:07 PM EDT Anesthesia Event [facility] OPERATING ROOM [address] [place] [phone] Bisi Restrepo, DELROY, Perla Ferrell CRNA 02/17/2025 1:26 PM EDT - 02/17/2025 3:36 PM EDT Surgery [facility] [address] [place] [phone] Ochoa Matias MD CYSTOSCOPY, WITH URETERAL STENT REPLACEMENT, WITH NEPHROSTOMY TUBE REMOVAL 02/17/2025 11:28 AM EDT - 02/17/2025 3:25 PM EDT Hospital Encounter [facility] [address] [place] [address] Ochoa Matias MD Other hydronephrosis (Primary Dx) Discharge Disposition: Home or Self Care 02/17/2025 Travel 02/14/2025 Telephone [facility] [address] [place], [place] [phone] Ochoa Matias MD 02/11/2025 Telephone [facility] Urology [address] [place] [phone] Ochoa Matias MD 02/06/2025 Telephone [facility] [address] [place] [phone] Sridevi Ellis Nurse Liaison call 02/05/2025 11:45 AM EDT Office Visit [facility] [address] [place] [phone] Ochoa Matias MD Malignant neoplasm of urinary bladder, unspecified site (CMS/HCC) (Primary Dx) 02/05/2025 Travel 01/27/2025 12:05 PM EDT - 01/27/2025 7:02 PM EDT Emergency [facility] Emergency Department [address] [place] [phone] Karolyn Toro MD Owens, Susan E, MD UTI (urinary tract infection), bacterial (Primary Dx); Malfunction of nephrostomy tube (CMS/HCC); Hydronephrosis, unspecified hydronephrosis type Discharge Disposition: Home or Self Care 01/27/2025 Travel 01/27/2025 Telephone [facility] [address] [place] [address] Ochoa Matias MD from Last 3 Months Family History Medical [...] [facility] or living [...] drink first t kimberlyn in the morning (EYE-PROFESSOR OF NURSING) to steady your nerves or to get rid of a hangover? 0 09/11/2024 CAGE Questionnaire Score 0 025 Utilities Answer Date Recorded In the past 12 months has th [employer], gas, oil, or water [employer] threatened to shut off services in your [...] Visit [facility] [address] [place] [address] Lauren Christine PA [address] [place] [phone] Health Maintenance Due Date Last Done Comments [facility]-Bone Density Scan 1955 [facility]-Medicare Annual Wellness (AWV) 1955 [facility]-Infant/Child/Adol SDOH Screenings 1955 [facility]-YHVHF-53 Vaccine (#1) 1959 [facility]-DTaP,Tdap,and Td Vaccines (1 [...] this topic Medical Devices Implanted Type Area Chrome Tanning Drum Operator Device Identifier Shelf Expiration Date Model / Serial / Lot Stent Ureteral Double Pigtail Pos 6fr 26cm - S. - [id number] Implanted:Qty: 1 on 07/23/2024 by Ochoa Matias MD at [facility] Explanted:06/2024 by Ochoa Matias MD (Quantity not on file) Stent N/A: [employer]-[id number] 03/11/2026 [id number] / . / [id number] Description:Patient states h ad stent taken out by Dr. Matias summer Stent Ureteral Double Pigtail Pos 6fr 24cm - [id number] Implanted:Qty: 1 on 02/17/2025 by Ochoa Matias MD at [facility] Right: [employer]-[id number] 12/18/2026 [id number] / / [id number] Stent Ureteral Double Pigtail Pos 6fr 24cm - [id number] Implanted:Qty: 1 on 02/17/2025 by Ochoa Matias MD at [facility] Left: [employer]-[id number] 12/18/2026 [id number] / / [id number] Procedures Procedure Name Priority Date/Time Associated Diagnosis Comments FL LESS THAN 1 HOUR (NON-REPORTABLE) Routine 02/17/2025 3:18 PM EDT PB ANESTHESIA PLACEHOLDER Routine 02/17/2025 2:17 PM EDT HI AN ELECTIVE ENDOTRACHEAL AIRWAY Routine 02/17/2025 2:17 [...] AUTO DIFFERENTIAL STAT 01/27/2025 12:04 PM EDT HEPATITIS C ANTIBODY - ED [...] IMG FLUOROSCOPY PROCEDURES Final Result IMAGING * HI AN ELECTIVE ENDOTRACHEAL AIRWAY, PB ANESTHESIA PLACEHOLDER (02/17/2025 2:17 PM EDT) Narrative Bisi Restrepo CRNA, DNP - 02/17/2025 2:17 PM EDT Bisi Restrepo CRNA, DNP 02/17/2025 2:25 PM Airway Date/Time: 02/17/2025 2:17 PM Reason: elective Airway not difficult General Information and Staff Patient location during procedure: OR COUNTER CONTROL OPERATOR: Bisi Restrepo CRNA, DNP Performed: COUNTER CONTROL OPERATOR Patient Condition Indications for airway management: [...] ORDERABLES Final Res ult Performing Organization Address [facility] de Phone Number [facility] [address] [place] [address] * Urine Stafford Panel (01/27/2025 3:37 PM EDT) Extra Sent for Culture 01/27/2025 6:01 PM EDT [facility] Urine Urine specimen obtained by clean catch procedure / Unknown Non-blood Collection / Unknown 01/27/2025 3:37 PM EDT 01/27/2025 4:29 PM EDT us Karolyn Toro MD LAB URINE ORDERABLES Final Res ult Performing Organization Address City/[facility] Co de Phone Number [facility] [address] [place] [address] * Urinalysis Microscopic Examination (01/27/2025 3:37 PM EDT) Urine Urine specimen obtained by clean catch procedure / Unknown Non-blood Collection / Unknown 01/27/2025 3:37 PM EDT 01/27/2025 3:39 PM EDT us Karolyn Toro MD LAB URINE ORDERABLES Final Res ult [facility] [address] [place] [phone] * (ABNORMAL) Urinalysis with reflex microscopic (Culture NOT Included) (01/27/2025 3:37 PM EDT) Color, Urine Yellow LAB URINALYSIS - AUTOMATED METHOD 01/27/2025 4:47 PM EDT [facility] Clarity, Urine Cloudy LAB URINALYSIS - AUTOMATED METHOD 01/27/2025 4:47 PM EDT [facility] Spec [place], Urine >1.030(H) 1.005 - 1.030 LAB URINALYSIS - AUTOMATED METHOD 01/27/2025 4:47 PM EDT [facility] pH, Urine 6.5 5.0 - 8.0 LAB URINALYSIS - AUTOMATED METHOD 01/27/2025 4:47 PM EDT [facility] Protein, Urine 100(A) Negative mg/dL LAB URINALYSIS - AUTOMATED METHOD 01/27/2025 4:47 PM EDT [facility] Glucose, Urine Negative Negative mg/dL LAB URINALYSIS - AUTOMATED METHOD 01/27/2025 4:47 PM EDT [facility] Ketones, Urine Negative Negative mg/dL LAB URINALYSIS - AUTOMATED METHOD 01/27/2025 4:47 PM EDT [facility] Blood, Urine Moderate(A) Negative LAB URINALYSIS - AUTOMATED METHOD 01/27/2025 4:47 PM EDT [facility] Bilirubin, Urine Negative Negative LAB URINALYSIS - AUTOMATED METHOD 01/27/2025 4:47 PM EDT [facility] Urobilinogen, Urine 1.0 0.2 to 1.0 mg/dL LAB URINALYSIS - AUTOMATED METHOD 01/27/2025 4:47 PM EDT [facility] Leukocytes, Urine Large(A) Negative LAB URINALYSIS - AUTOMATED METHOD 01/27/2025 4:47 PM EDT [facility] Nitrite, Urine Positive(A) Negative LAB URINALYSIS - AUTOMATED METHOD 01/27/2025 4:47 PM EDT [facility] RBC, Urine 16 - 30(A) 0 to 3 /HPF LAB URINALYSIS - AUTOMATED METHOD 01/27/2025 4:47 PM EDT [facility] Comment:This result was prev iously suppressed from the chart. WBC, Urine >50(A) 0 to 5 /HPF LAB URINALYSIS - AUTOMATED METHOD 01/27/2025 4:47 PM EDT [facility] Comment:This result was prev iously suppressed from the chart. Squamous Epithelial Cells 0 - 2 0 to 5 /HPF LAB URINALYSIS - AUTOMATED METHOD 01/27/2025 4:47 PM EDT [facility] Comment:This result was prev iously suppressed from the chart. Hyaline Casts 11 - 20(A) 0 to 5 /LPF LAB URINALYSIS - AUTOMATED METHOD 01/27/2025 4:47 PM EDT [facility] Comment:This result was prev iously suppressed from the chart. Bacteria, Urine Present Negative LAB URINALYSIS - AUTOMATED METHOD 01/27/2025 4:47 PM EDT [facility] Comment:This result was prev iously suppressed from the chart. Urine Urine specimen obtained by clean catch procedure / Unknown Non-blood Collection / Unknown 01/27/2025 3:37 PM EDT 01/27/2025 3:39 PM EDT Karolyn Toro MD LAB URINE ORDERABLES Final Res ult [facility] [address] [place] [address] * Urine Culture (01/27/2025 3:37 PM EDT) Culture >=100,000 CFU/mL Mixed urogenital , fecal, or skin meg present. 01/29/2025 1:54 PM EDT [facility] Comment:This is a corrected result. Previous organism was Gram Negative Elliot on 01/28/2025 at 1539 EDT. Urine Urine specimen obtained by clean catch procedure / Unknown Non-blood Collection / Unknown 01/27/2025 3:37 PM EDT 01/27/2025 4:29 PM EDT Karolyn Toro MD LAB MICROBIOLOGY - GENERAL ORD ERABLES Final Result [facility] [address] [place] [address] * CT Abdomen Pelvis w IV Contrast [...] signing this report, I, the attending physician, reji I have personally reviewed the images/data for [...] LAB HEMATOLOGY METHOD 01/27/2025 12:11 PM EDT [facility] RBC Count 4.17 3.90 - 5.20 10*6/uL LAB HEMATOLOGY METHOD 01/27/2025 12:11 PM EDT [facility] HGB 12.7 11.2 - 15.7 g/dL LAB HEMATOLOGY METHOD 01/27/2025 12:11 PM EDT [facility] HCT 36.1 34.0 - 45.0 % LAB HEMATOLOGY METHOD 01/27/2025 12:11 PM EDT [facility] Platelet Count 439(H) 155 - 369 10*3/uL LAB HEMATOLOGY METHOD 01/27/2025 12:11 PM EDT [facility] MCV 87 79 - 98 fL LAB HEMATOLOGY METHOD 01/27/2025 12:11 PM EDT [facility] MCH 30.5 26.0 - 32.0 pg LAB HEMATOLOGY METHOD 01/27/2025 12:11 PM EDT [facility] MCHC 35.2 30.7 - 35.5 g/dL LAB HEMATOLOGY METHOD 01/27/2025 12:11 PM EDT [facility] RDW 17.8(H) 11.5 - 14.5 % LAB HEMATOLOGY METHOD 01/27/2025 12:11 PM EDT [facility] MPV 8.1(L) 8.8 - 12.5 fL LAB HEMATOLOGY METHOD 01/27/2025 12:11 PM EDT [facility] nRBC 0.0 <=0.0 per 100 WBCs LAB HEMATOLOGY METHOD 01/27/2025 12:11 PM EDT [facility] Differential Type Automated LAB HEMATOLOGY METHOD 01/27/2025 12:11 PM EDT [facility] Neutrophils % 67 % LAB HEMATOLOGY METHOD 01/27/2025 12:11 PM EDT [facility] Lymphocytes % 18 % LAB HEMATOLOGY METHOD 01/27/2025 12:11 PM EDT [facility] Monocytes % 13 % LAB HEMATOLOGY METHOD 01/27/2025 12:11 PM EDT [facility] Eosinophils % 1 % LAB HEMATOLOGY METHOD 01/27/2025 12:11 PM EDT [facility] Basophils % 1 % LAB HEMATOLOGY METHOD 01/27/2025 12:11 PM EDT [facility] Immature Granulocytes % 0 % LAB HEMATOLOGY METHOD 01/27/2025 12:11 PM EDT [facility] Neutrophils Absolute 5.02 1.60 - 6.10 10*3/uL LAB HEMATOLOGY METHOD 01/27/2025 12:11 PM EDT [facility] Lymphocytes Absolute 1.32 1.20 - 3.90 10*3/uL LAB HEMATOLOGY METHOD 01/27/2025 12:11 PM EDT [facility] Monocytes Absolute 0.95(H) 0.30 - 0.90 10*3/uL LAB HEMATOLOGY METHOD 01/27/2025 12:11 PM EDT [facility] Eosinophils Absolute 0.09 0.00 - 0.50 10*3/uL LAB HEMATOLOGY METHOD 01/27/2025 12:11 PM EDT [facility] Basophils Absolute 0.08 0.00 - 0.10 10*3/uL LAB HEMATOLOGY METHOD 01/27/2025 12:11 PM EDT [facility] Immature Granulocytes Absolute 0.02 0.00 - 0.06 10*3/uL LAB HEMATOLOGY METHOD 01/27/2025 12:11 PM EDT [facility] Blood Venous blood specimen / Unknown Venipuncture / Unknown 01/27/2025 12:04 PM EDT 01/27/2025 12:09 PM EDT [facility] - 01/27/2025 12:11 PM EDT Therapeutic decision making should be based on absolute values, rather than percentages. us Karolyn Toro MD LAB BLOOD ORDERABLES Final Res ult [facility] [address] [place] [address] * (ABNORMAL) BMP (01/27/2025 12:04 PM EDT) Glucose, Plasma 119(H) 74 - 99 mg/dL 01/27/2025 12:32 PM EDT [facility] BUN, Plasma 13 8 - 23 mg/dL 01/27/2025 12:32 PM EDT [facility] Creatinine, Plasma 0.94 0.60 - 1.10 mg/dL 01/27/2025 12:32 PM EDT [facility] BUN/Creatinine Ratio 14 01/27/2025 12:32 PM EDT [facility] Sodium, Plasma 132(L) 136 - 145 mmol/L 01/27/2025 12:32 PM EDT [facility] Potassium, Plasma 4.0 3.6 - 4.9 mmol/L 01/27/2025 12:32 PM EDT [facility] Chloride, Plasma 96(L) 97 - 107 mmol/L 01/27/2025 12:32 PM EDT [facility] CO2, Plasma 22 22 - 29 mmol/L 01/27/2025 12:32 PM EDT [facility] Anion Gap 14 6 - 16 mmol/L 01/27/2025 12:32 PM EDT [facility] Total Calcium, Plasma 9.9 8.9 - 10.2 mg/dL 01/27/2025 12:32 PM EDT [facility] eGFRcr 65.4 mL/min/1.7 3m*2 01/27/2025 12:32 PM EDT [facility] Comment:Reported eGFRcr in m L/min/1.73m2 is based the CKD-EPI 2020 equation that does not use a race coefficient. Blood Venous blood specimen / Unknown Venipuncture / Unknown 01/27/2025 12:04 PM EDT 01/27/2025 12:09 PM EDT Karolyn Toro MD LAB BLOOD ORDERABLES Final Res ult [facility] [address] [place] [address] * Hepatitis C Antibody - ED (07/22/2024 7:54 PM EST) Hepatitis C Antibody Negative Negative 07/22/2024 9:11 PM EST [facility] Blood Venous blood specimen / Unknown Venipuncture / Unknown 07/22/2024 7:54 PM EST 07/22/2024 8:09 PM EST Luz MCCABE LAB BLOOD ORDERABLES Missy l Result [facility] [address] [place] [address] from Last 3 Months or Most Recently Relevant to Health Maintenance Insurance [facility] MEDICARE Advance Directives * Full [...] Patient has decision-making capacity? Yes Care Teams Skidder Relationship Specialty Start Date End Date Luis Hatfield MD [address] [place] [phone] PCP - General 07/24/24
[2025-03-27 09:30] VITALS: BMI 25.6
[2025-03-27 09:37] LABS: Hematocrit 38.5 % (37.0-47.0); Hemoglobin 12.9 g/dL (12.2-16.2); Immature Granulocytes % 0.1 %; Mean Corpuscular HGB Conc 33.5 g/dL (31.8-35.4); Mean Corpuscular Hemoglobin 31.4 pg (27.0-31.2); Mean Corpuscular Volume 93.7 fl (81-99); Nucleated Red Blood Cells % 0 %; Platelet Count 282 K/mm3 (142-424); Red Blood Count 4.11 M/mm3 (4.20-5.40); Red Cell Distribution Width-SD 57.4 fL; White Blood Count 8.1 K/mm3 (4.8-10.8)
[2025-03-27 09:46] LABS: Albumin Level 4.1 g/dl (3.5-5.0); Chloride 100 mmol/L (98-107); Sodium 136 mmol/L (136-145)
[2025-03-27 09:47] LABS: Potassium 4.1 mmoL/L (3.5-5.1)
[2025-03-27 09:49] LABS: Alanine Aminotransferase 12 U/L (12-78); Albumin/Globulin Ratio 1.5 (1.1-1.8); Alkaline Phosphatase 79 U/L (38-126); Anion Gap 11.1 mEq/L (5-15); Aspartate Amino Transferase 27 U/L (14-36); Bilirubin,Total 1.2 mg/dl (0.2-1.3); Blood Urea Nitrogen 13 mg/dl (7-17); Carbon Dioxide 29 mmol/L (22.0-30.0); Creatinine Clearance Estimated 52 mL/min (50-200); Creatinine,Serum 0.90 mg/dl (0.52-1.04); Estimated Glomerular Filt Rate 62 ml/min (>60); GFR (African American) 75 ML/MIN (>60); Globulin 2.8 g/dL (1.3-3.2); Total Protein,Serum 6.9 g/dl (6.3-8.2)
[2025-03-27 09:50] LABS: Calcium 9.4 mg/dl (8.4-10.2); Glucose 99 mg/dl (74-100)
[2025-03-27 10:21] LABS: Thyroid Stimulating Hormone 0.73 uIU/mL (0.465-4.68)
[2025-03-27 11:00] VITALS: BP 91/42; PULSE 85; RESP 16; TEMP 36.3; O2SAT 94
[2025-03-27] MEDS: PEMBROLIZUMAB 200 MG in 0.9 % SODIUM CHLORIDE 50 ML 116 MG IV (11:00)
[2025-03-27 11:15] VITALS: BP 111/49; PULSE 79; RESP 16
[2025-03-27 11:30] VITALS: BP 116/44; PULSE 85; RESP 16
== END 2025-03-27 23:59 | disposition home or self-care (01) ==
LOC: INF 09:19
PROVIDERS: PCP Family Medicine; Visit Provider Internal Medicine Medical Oncology
DX: C47.9 Malignant neoplasm of peripheral nerves and autonomic nervous system, unspecified (principal); Z51.11 Encounter for antineoplastic chemotherapy
CPT/HCPCS: 80053; 82024; 82533; 84443; 85025; 96413; J9271

== ENCOUNTER 2025-04-14 08:35 | Outpatient (CLI) | payer MEDICARE, SELFPAY ==
--- OUTSIDE RECORDS SUMMARY | 2025-02-17 10:28 | XMS_ITS | Encounter Summary ---
Author Organization Healthcare Address [address] [place] [address] Care Team Providers Care Sheep Killer Name Role Phone Luis Hatfield MD Primary Care Provider [phone] Reason for Visit * Auth/Cert (Routine) Specialty Diagnoses / Procedures Referred By Stephen parks Referred To Contact Diagnoses Other hydronephrosis Other hydronephrosis [N13.39] Procedures IA PLMT NEPHROSTOMY CATH PRQ NEW ACCESS RS&I CHG X-RAY RETROGRADE PYELOGRAM IA CYSTOSCOPY,INSERT URETERAL STENT CYSTOSCOPY, WITH URETERAL STENT REPLACEMENT TURBT, USING BIPOLAR CAUTERY PROBE, WITH SALINE IRRIGATION Ochoa Matias MD [address] [address] Phone: tel: fax: [facility] A OPERATING ROOM [address] [place] [address] Phone: tel: Referral ID Status Reason Start Date Expiration Date Visits Re quested Visits Authorized [id number] 1 1 Encounter Details Date Type Department Care Team (Latest Contact Info) Description 02/17/2025 11:28 AM EDT - 02/17/2025 3:25 PM EDT Hospital Encounter [facility] A OPERATING ROOM [address] [place] [address] Ochoa Matias MD [address] [place] [phone] Other hydronephrosis (Primary Dx) Discharge Disposition: [...] any time in the past 12 m [facility], were you homeless or living [...] drink first t kimberlyn in the morning (EYE-BOW MAKER) to steady your nerves or to get [...] confirm your location ahead of your appointment) [facility] Urology Department [facility] at [facility] [address], 2nd Floor, Wing C, Room [address] [place] [address] Clinic After Hours [facility] Clinic [address] [place] [address] Clinic After Hours documented in this encounter [...] 1 tablet by mouth daily. HYDROcodone-acet aminophen (Brian Head) 5-325 MG tablet Take 1-2 tablets by [...] Postoperative Diagnosis: Same Surgeon: Ochoa Matias MD Can Crimper Surgeon: Michael Hardin DO Intraoperative Findings: Cystoscopy [...] the nephrostomy tube and removed it. A [place] catheter was advanced over the wire and [...] was removed. We then advanced a 6 Spanish by 24 cm ureteral stent without strings [...] Hardin DO PGY-3, Department of Urology Pager: [phone] * H&P - Michael Hardin DO - [...] Hardin, DO PGY-3, Department of Urology Pager: [phone] [1] Past Medical History: Diagnosis Date Cancer [...] 1 tablet by mouth daily. 02/16/2025 HYDROcodone-acetaminophen ([place]) 5-325 MG tablet Take 1-2 tablets by [...] welcome you, your family, and friends to [facility]. We offer access to more than 1,500 [...] will help you be more comfortable with [facility] and the surgical process. This information provides [...] located on the first floor of the [facility] near the Pharmacy and main clinic entrance. We are open Monday-Monday from 8 a.m. to 4:30 p.m. A clinic manufacturer's representative can be reached at [phone]. Parking is available in the [facility] garage on [facility] or in the [facility] garage located at [address], directly across [facility] from [facility]. The day before surgery You will receive a phone call telling you what time you need to arrive at the hospital for surgery.If you miss the call, please call one of the following numbers (depending on where your surgery is scheduled): ? [facility]: [phone] or [phone] ? [facility] Surgery: [phone] or [phone] The day of surgery ? Arrive on time to avoid delays or cancellation. ? Park in the [facility] parking garage located at [address] It is directly across [facility] from the [facility]. ? If you are scheduled for surgery at [facility], take the hospital garage elevator to Level C, then cross the concourse bridge to the Surgery Waiting Room to register for your surgery. [facility] is located down the first hallway to the right at the end of the concourse bridge. If you need help crossing the concourse, you may berry picker machine operator the patient golf cart shuttle directlyto the right of the elevators on Level C. ? If you are scheduled for surgery at the [facility] Advanced Surgery, take the garage elevator to Level A and catch the free shuttle to the hospital. (Be careful not to take the [facility] shuttle - there is an ambassador [...] checked many times throughout your stay at [facility] to ensure your safety. ? Go over [...] talk to them after your surgery. A count room clerk is available in the waiting room [...] living will, health care surrogate, power of bellman captain or guardianship papers. ? Bring a responsible [...] makeup, jewelry (including body piercing) or nail thai. ? Don?t bring money or valuables to [...] office and the Preoperative Anesthesia Clinic at [phone] or [phone]. If it is the day of surgery, call the location where you are scheduled to have your surgery: [facility] at [phone] or [phone] or [facility] at [phone] or [phone]. For more information Visit www.[facility].count includes the [facility] or call [phone] or [phone]. [facility] does not discriminate. [facility] complies with applicable Federal civil rights laws and does not discriminate on the basis of race, color, national origin, age, disability, or sex. * Dagoberto Terrazas - Evita Sánchez RN - 02/13/2025 1:20 PM EDT Images from the original note were not included. 489 Map to [facility] Facilities Directions Easy directions to and from I-75/I-64 (from [address]) Directions from I-75/I-64 to the [facility] Parking Garage: ? From [address], turn right off the exit ramp onto [address] ([place] [address] [address]) toward [place]. ? In 4.1 miles, turn left onto [address] (at the [employer] gas station). ? In a half-mile, turn right onto [address]. ? In .3 miles, turn right onto [address] (just past the [employer] gas station). Garage entrance is on the left. ? Important: This garage address will change to [address] [place] [address] on December 10, 2024. Directions from HealthCare Parking Garage to I-75/I-64: ? Turn left out of the garage onto [address]. ? Turn left onto [address]. ? In .3 miles, turn left down [address] ? In a half-mile, turn right onto [address] (at the [employer] gas station). ? In 4.1 miles, merge onto I-64 /I-75 (near the [facility] by [employer]). Parking Any patients or visitors of [facility] can park in the following areas: ? [facility] Parking Garage (main garage): [address] (Levels A-F) ? [facility] Garage: [address] (Levels 1-6) ? [facility] Cancer lot: Located off [address] (limited parking for [facility] outpatients only). Upon Your Arrival ? Patients and visitors going to Pavili A, H, and [facility] may walk across the pedway, located at [...] also be accessed via the pedway off the [facility] garage on Level C. If you need a shuttle to the ED, one can be called for you at Level A of the main garage or contact any of the information desks, . Additional Information For additional information, please visit our information desks located throughout Healthcare. Information desks have additional maps and resources. Information desks are located at the main entrances of: [facility] [facility] (first floor and ground floor), [facility], [facility] H, Pavilion CC, Pav[facility] WH, [facility] (first and third floor), and [facility]. Informationdesk number: [phone]. Important Addresses [address] [facility] ? [facility] entrance ? Pavilion A ? Pavilion G ([facility]) ? Emergency Department [address] ? Pavilion H ? Pavilion CC ([facility]) ? [facility]ilion WH ([facility]) ? [facility] [address] [facility] ? [facility] [address] [facility] ? [facility] [address] [facility] ? [facility] ? [facility] * Preprocedure Instructions - Evita Sánchez RN - 02/13/2025 1:18 PM EDT Home Medication Instructions Current Medications Medication Instructions ascorbic acid (vitamin C) 1000 MG tablet Hold day of surgery buPROPion (Wellbutrin) 75 MG tablet Take morning of surgery Ferrous Sulfate (IRON PO) Hold day of surgery HYDROcodone-acetaminophen ([place]) 5-325 MG tablet Take as needed hydroxychloroquine [...] card, photo ID, along with power of bellman captain, guardianship or advanced directives if applicable Do not bring money, jewelry or other valuables Hibiclens bathing instructions reviewed if applicable Notify surgeon of fever, illness, any changes or if you decide not to have surgery Registration will be on the first floor of [facility]) at the end of the bridge from the parking garage, the hallway on the RIGHT. Parking Garage Address: [address] [place] [address]. * PAT Phone Note - Evita Sánchez [...] [facility] Multidisciplinary Oncology Clinic [address] [place] [address] Lauren Christine PA [address] [place] [id number] documented as of this encounter Procedures Procedure [...] Tobacco use disorder SLE (systemic lupus erythematosus) ([facility]) Systemic lupus erythematosus documented in this [...] documented as of this encounter Care Teams Sheep Killer Relationship Specialty Start Date End Date Luis Hatfield MD [address] [place] [address] PCP - General 07/24/24 documented as of this encounter
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
--- OUTSIDE RECORDS SUMMARY | 2025-02-17 13:07 | XMS_ITS | Encounter Summary ---
Author Organization Healthcare Address [address] [place] [address] Care Team Providers Care Porter Marina Name Role Phone Luis Hatfield MD Primary Care Provider [phone] Reason for Visit * Auth/Cert (Routine) Specialty Diagnoses / Procedures Referred By Stephen parks Referred To Contact Diagnoses Other hydronephrosis Other hydronephrosis [N13.39] Procedures NM PLMT NEPHROSTOMY CATH PRQ NEW ACCESS RS&I CHG X-RAY RETROGRADE PYELOGRAM NM CYSTOSCOPY,INSERT URETERAL STENT CYSTOSCOPY, WITH URETERAL STENT REPLACEMENT TURBT, USING BIPOLAR CAUTERY PROBE, WITH SALINE IRRIGATION Ochoa Matias MD [address] [facility] [address] [place] [address] Phone: tel: fax: [facility] [address] [place] [address] Phone: tel: Referral ID Status Reason Start Date Expiration Date Visits Re quested Visits Authorized [id number] 1 1 Encounter Details Date Type Department Care Team (Late st Contact Info) Description 02/17/2025 2:07 PM EDT Anesthesia Event [facility] [address] [place] [address] Bisi Restrepo CRNA, CAMRYN [address] [place] [address] Perla Dupont CRNA [address] [place] [address] Anesthesia Record Procedure Summary Procedure [...] Forearm; Site Prep: Chlorhexidine ; Local Anesth: [place]; Technique: Anatomical landmarks; Inserted by: rosemary houston [...] No change to dentition. ; Placed by: PICKER MACHINE OPERATOR; Removal Date: 02/17/25; Removal Time: 1517 02/17/25 1417 by Bisi Restrepo CRNA, [facility] 02/17/25 1517 by Lucie Cotton MD Ureteral Drain/Stent 02/17/25; 1444; No; Yes; Left ureter; 6 Fr.; Yes 02/17/25 1444 by Montrell Barfield RN 02/17/25 1732 by Thomas Aranda RN Ureteral Drain/Stent 02/17/25; 1452; No; Yes; Right ureter; 6 Fr.; Yes 02/17/25 1452 by Montrell Barfield RN 02/17/25 1732 by Tohmas Aranda RN documented in this encounter Social [...] any time in the past 12 m [facility], were you homeless or living [...] drink first t kimber[place] in the morning (EYE-COMPENSATION PROGRAMS MANAGER) to steady your nerves or to get rid of a hangover? 0 09/11/2024 CAGE Questionnaire Score 0 025 Utilities Answer Date Recorded In the past 12 months has th e electric, gas, oil, or water [employer] threatened to shut off services in your [...] and Staff Patient location during procedure: OR PICKER MACHINE OPERATOR: Bisi Restrepo CRNA, DNP Performed: DELROY [...] 1:11 PM EDT Anesthesiologist: Joey Meier MD PICKER MACHINE OPERATOR: Bisi Restrepo CRNA, DNP Patient: Corrie Rosenthal [facility] Procedure Information Date/Time: 02/17/25 1326 Procedures: [...] Sulfate (IRON PO) 1 tablet, Daily HYDROcodone-acetaminophen ([place]) 5-325 MG tablet 5-10 mg of hydrocodone, [...] ABG No results found for: PHART , FUG1YIP , PO2ART , SO2ART , BEART , XSA1MOV , HCTART , SODIUMART , POTASSIUMART , POCTCL , POCGLU , IONCALART , LACTATE Lab Results Component Value Date HCTSYR 25.6 (L) 07/22/2024 KSYR 4.2 07/22/2024 CLSYR 102 07/22/2024 GLUSYR 97 07/22/2024 CAION 4.8 07/22/2024 ECHO No echocardiogram results found for the past 12 months PFTs No results found for: FAJ6RMP , CWK2PYHP , RDD7OYX , FVCPRED BP Readings from Last 5 [...] [2] Past Medical History: Diagnosis Date Cancer ([facility]) bladder cancer - CURRENTLY ON CHEMO - LAST DOSE 02/13/25 Dental disease partial on bottom - top dentures History of blood transfusion 06/2024 no reactions Hyperlipidemia Hypertension Lupus (systemic lupus erythematosus) ([facility]) Other specified fracture of unspecified pubis, initial encounter for closed fracture ([facility]) Pubic ramus fracture Other specified health [...] Description 05/14/2025 10:40 AM EST Office Visit [facility] Multidisciplinary Oncology Clinic [address] [place] [address] Lauren Christine, ESTELLE [address] [facility] [address] [place] [address] documented as of this encounter Procedures Procedure Name Priority Date/Time Associated Diagnosis Comments PB ANESTHESIA PLACEHOLDER Routine 02/17/2025 2:17 PM EDT NM AN ELECTIVE ENDOTRACHEAL AIRWAY Routine 02/17/2025 2:17 PM EDT documented in this encounter Results * NM AN ELECTIVE ENDOTRACHEAL AIRWAY, PB ANESTHESIA PLACEHOLDER (02/17/2025 2:17 PM EDT) Narrative Bisi Restrepo CRNA, DNP - 02/17/2025 2:17 PM EDT Bisi Restrepo CRNA, DNP 02/17/2025 2:25 PM Airway Date/Time: 02/17/2025 2:17 PM Reason: elective Airway not difficult General Information and Staff Patient location during procedure: OR PICKER MACHINE OPERATOR: Bisi Restrepo CRNA, DNP Performed: PICKER MACHINE OPERATOR Patient Condition Indications for airway management: [...] Comments Atraumatic. No change to dentition. us Jeoy Meier MD ANESTHESIA ORDERABLES Final Re sult [...] documented as of this encounter Care Teams Porter Marina Relationship Specialty Start Date End Date Luis Hatfield MD [address] [place] [address] PCP - General 07/24/24 documented as of this encounter
--- OUTSIDE RECORDS SUMMARY | 2025-04-14 08:43 | XMS_ITS | Encounter Summary ---
Author Organization Healthcare Address [address] [place] [address] Care Team Providers Care Program Engineer Name Role Phone Luis Hatfield MD Primary Care Provider [phone] Encounter Details Date Type Department Care Team (Late st Contact Info) Description 03/04/2025 Telephone [facility] Interventional Radiology [address] [place] [address] Sunil Marrufo, RN Social History Tobacco Use [...] in the past 12 m [facility], were you homeless or living in [...] drink first t kimberlyn in the morning (EYE-ORDER FILLER) to steady your nerves or to get [...] [facility] [address] [place] [address] Lauren Christine PA [address] [place] [phone] documented as of this encounter Visit Diagnoses [...] documented as of this encounter Care Teams Program Engineer Relationship Specialty Start Date End Date Luis Hatfield MD [address] [facility] [address] [place] [address] PCP - General 07/24/24 documented as of this encounter
--- OUTSIDE RECORDS SUMMARY | 2025-04-14 08:44 | XMS_ITS | Encounter Summary ---
Author Organization [facility] Address [address] [place] [address] Care Team Providers Care [employer] Registrar Name Role Phone Luis Hatfield MD Primary Care Provider [phone] Encounter Details Date Type Department Care Team [...] time in the past 12 m [facility], were you homeless or living [...] first t kimberlyn in the morning (EYE-MEDICAL RECEPTIONIST) to steady your nerves or to get rid of a hangover? 0 09/11/2024 CAGE Questionnaire Score 0 025 Utilities Answer Date Recorded In the past 12 months has th e [employer], gas, oil, or water company threatened to [...] Office Visit [facility] [address] [place] [address] Lauren Christine PA [address] [place] [address] documented as of this encounter Visit Diagnoses [...] documented as of this encounter Care Teams [employer] Registrar Relationship Specialty Start Date End Date Luis Hatfield MD [facility] [address] [address] PCP - General 07/24/24 documented as of this encounter
--- OUTSIDE RECORDS SUMMARY | 2025-04-14 08:44 | XMS_ITS | Clinical Summary ---
Author Organization [facility] Address [address] [place] [address] Care Team Providers Care Dough Machine Operator Name Role Phone Luis Hatfield MD Primary Care Provider [phone] Allergies Active Allergy Reactions Criticality Noted Date [...] mouth 1 time each day. 4 Active HYDROcodone-kacie taminophen (Manson) 5-325 MG tablet Take 1-2 tablets by mouth every 8 hours as needed. Active ascorbic acid (vitamin C) 1000 MG tablet Take 1 tablet by mouth daily. Active acetaminophen (Tylenol) 500 MG tablet Take 2 tablets by mouth every 6 hours as needed for pain. 20 tablet 5 Active Active Problems Problem Noted Date Diagnosed [...] Diagnosed Date Resolved Date Urinary tract infection 09/21/2024 0906/2024 VINCENZO (acute kidney injury) 09/11/2024 Acute blood loss anemia 07/22/202407/13 Bladder mass 07/22/2024 07/25/2024 Encounters Date Type Department Care Team Description 03/04/2025 Telephone [facility] Interventional Radiology [address] [place] [address] Sunil Marrufo RN 02/21/2025 Telephone [facility] [address] [place] [address] Ochoa Matias MD 02/17/2025 2:07 PM EDT Anesthesia Event [facility] OPERATING ROOM [address] [place] [phone] Bisi Restrepo, DELROY, Perla Ferrell CRNA 02/17/2025 1:26 PM EDT - 02/17/2025 3:36 PM EDT Surgery [facility]ATING RO[facility] [address] [place] [phone] Ochoa Matias MD CYSTOSCOPY, WITH URETERAL STENT REPLACEMENT, WITH NEPHROSTOMY TUBE REMOVAL 02/17/2025 11:28 AM EDT - 02/17/2025 3:25 PM EDT Hospital Encounter [facility] OPERATING ROOM [address] [place] [phone] Ochoa Matias MD Other hydronephrosis (Primary Dx) Discharge Disposition: Home or Self Care 02/17/2025 Travel 02/14/2025 Telephone [facility] [address] [place] [phone] Ochoa Matias MD 02/11/2025 Telephone [facility] Urology [address] [place] [phone] Ochoa Matias MD 02/06/2025 Telephone [facility] [address] [place] [phone] Sridevi Ellis Nurse Liaison call 02/05/2025 11:45 AM EDT Office Visit [facility] Multidisciplinary Oncology Clinic [address] [place] [phone] Ochoa Matias MD Malignant neoplasm of urinary bladder, unspecified site (CMS/HCC) (Primary Dx) 02/05/2025 Travel 01/27/2025 12:05 PM EDT - 01/27/2025 7:02 PM EDT Emergency [facility] Emergency Department [address] [place] [phone] Karolyn Toro MD Owens, Susan E, MD UTI (urinary tract infection), bacterial (Primary Dx); Malfunction of nephrostomy tube (CMS/HCC); Hydronephrosis, unspecified hydronephrosis type Discharge Disposition: Home or Self Care 01/27/2025 Travel 01/27/2025 Telephone [facility] [address] [place] [phone] Ochoa Matias MD from Last 3 Months [...] drink first t kimberlyn in the morning (EYE-FIELD CONTACT PERSON) to steady your nerves or to get [...] Description 05/14/2025 10:40 AM EST Office Visit [facility] Multidisciplinary Oncology Clinic [address] [place] [address] Lauren Christine PA [address] [facility] [address] [place] [phone] Health Maintenance Due Date Last Done Comments [facility]-Bone Density Scan 1955 [facility]-Medicare Annual Wellness (AWV) 1955 [facility]-Infant/Child/Adol SDOH Screenings 1955 [id number] Vaccine (#1) 1959 [facility]Y-DTaP,Tdap,and Td Vaccines (1 [...] this topic Medical Devices Implanted Type Area Disposal Worker Device Identifier Shelf Expiration Date Model / Serial / Lot Stent Ureteral Double Pigtail Pos 6fr 26cm - S. - [id number] Implanted:Qty: 1 on 07/23/2024 by Ochoa Matias MD at [facility] Explanted:06/2024 by Ochoa Matias MD (Quantity not on file) Stent N/A: [id number] 03/11/2026 [id number] / . / [id number] Description:Patient states h ad stent taken out by Dr. Matias summer Stent Ureteral Double Pigtail Pos 6fr 24cm - [id number] Implanted:Qty: 1 on 02/17/2025 by Ochoa Matias MD at [facility] Right: [employer]-[id number] 12/18/2026 [id number] / / [id number] Stent Ureteral Double Pigtail Pos 6fr 24cm - [id number] Implanted:Qty: 1 on 02/17/2025 by Ochoa Matias MD at [facility] Left: [id number] 12/18/2026 [id number] / / [id number] Procedures Procedure Name Priority Date/Time Associated Diagnosis Comments FL LESS THAN 1 HOUR (NON-REPORTABLE) Routine 02/17/2025 3:18 PM EDT PB ANESTHESIA PLACEHOLDER Routine 02/17/2025 2:17 PM EDT SC AN ELECTIVE ENDOTRACHEAL AIRWAY Routine 02/17/2025 2:17 [...] IMG FLUOROSCOPY PROCEDURES Final Result IMAGING * SC AN ELECTIVE ENDOTRACHEAL AIRWAY, PB ANESTHESIA PLACEHOLDER (02/17/2025 2:17 PM EDT) Narrative Bisi Restrepo CRNA, DNP - 02/17/2025 2:17 PM EDT Bisi Restrepo CRNA, DNP 02/17/2025 2:25 PM Airway Date/Time: 02/17/2025 2:17 PM Reason: elective Airway not difficult General Information and Staff Patient location during procedure: OR LAUNDRY MARKER SUPERVISOR: Bisi Restrepo CRNA, DNP Performed: DELROY [...] ORDERABLES Final Res ult Performing Organization Address [facility] [place] [address] * Urine Stafford Panel (01/27/2025 3:37 PM EDT) Extra Sent for Culture 01/27/2025 6:01 PM EDT [facility] Urine Urine specimen obtained by clean catch procedure / Unknown Non-blood Collection / Unknown 01/27/2025 3:37 PM EDT 01/27/2025 4:29 PM EDT us Karolyn Toro MD LAB URINE ORDERABLES Final Res ult Performing Organization Address [facility] de Phone Number [facility] [address] [place] [address] * Urinalysis Microscopic Examination (01/27/2025 3:37 PM EDT) Urine Urine specimen obtained by clean catch procedure / Unknown Non-blood Collection / Unknown 01/27/2025 3:37 PM EDT 01/27/2025 3:39 PM EDT us Karolyn Toro MD LAB URINE ORDERABLES Final Res ult Performing Organization Address [facility] Co de Phone Number [facility] [address] [place] [address] * (ABNORMAL) Urinalysis with reflex microscopic (Culture NOT Included) (01/27/2025 3:37 PM EDT) Color, Urine Yellow LAB URINALYSIS - AUTOMATED METHOD 01/27/2025 4:47 PM EDT [facility] Clarity, Urine Cloudy LAB URINALYSIS - AUTOMATED METHOD 01/27/2025 4:47 PM EDT [facility] Spec [place], Urine >1.030(H) 1.005 - 1.030 LAB URINALYSIS [...] ORDERABLES Final Res ult Performing Organization Address City/[facility]/ZIP Co de Phone Number [facility] [address] [place] [address] * Urine Culture (01/27/2025 3:37 PM EDT) [...] ORD ERABLES Final Result Performing Organization Address [facility]/ZIP Co de Phone Number [facility] [address] [place] [address] * CT Abdomen Pelvis w IV Contrast [...] PM EDT 01/27/2025 12:09 PM EDT Narrative [facility] - 01/27/2025 12:11 PM EDT Therapeutic decision making should be based on absolute values, rather than percentages. us Karolyn Toro MD LAB BLOOD ORDERABLES Final Res ult [facility] [address] [place] [address] * (ABNORMAL) BMP (01/27/2025 12:04 PM EDT) [...] [facility] [address] [place] [address] * Hepatitis C Antibody - ED (07/22/2024 7:54 PM EST) Hepatitis C Antibody Negative Negative 07/22/2024 9:11 PM EST [facility] Blood Venous blood specimen / Unknown Venipuncture / Unknown 07/22/2024 7:54 PM EST 07/22/2024 8:09 PM EST us Luz MCCABE LAB BLOOD ORDERABLES Missy l Result [facility] [address] [place] [address] from Last 3 Months or Most Recently Relevant to Health Maintenance Insurance [facility] MEDIC[facility] Advance Directives * Full Code [...] Patient has decision-making capacity? Yes Care Teams Dough Machine Operator Relationship Specialty Start Date End Date Luis Hatfield MD [address] [facility] [address] [phone] (work) PCP - General 07/24/24
--- OUTSIDE RECORDS SUMMARY | 2025-04-14 08:44 | XMS_ITS | Encounter Summary ---
Author Organization Healthcare Address [address] [place] [address] Care Team Providers Care Pbx Technician Name Role Phone Luis Hatfield MD Primary Care Provider [phone] Encounter Details Date Type Department Care Team (Late st Contact Info) Description 02/14/2025 Telephone [facility] Multidisciplinary Oncology Clinic [address] [place] [address] Ochoa Matias MD [address] [place] [phone] Social History Tobacco Use Types Packs/Day Years [...] drink first t kimberlyn in the morning (EYE-FLOWER ARRANGER) to steady your nerves or to get [...] Tay RN - 02/14/2025 2:06 PM EDT senior scheduler reached out to patient who was contacted by hospital to notify of arrival time. No further questions at this time. * Telephone Encounter - Maury Lebron - 02/14/2025 1:10 PM EDT Patient Phone Message Reason for Call: Ms. Pritchard is calling to see [facility] Best contact number and optimal time of day to reach caller: [phone] Note: Please do not reply to this [...] Description 05/14/2025 10:40 AM EST Office Visit [facility] Multidisciplinary Oncology Clinic [address] [place] [address] Lauren Christine PA [address] [facility] [address] [place] [address] documented as of this encounter Visit Diagnoses [...] documented as of this encounter Care Teams Pbx Technician Relationship Specialty Start Date End Date Luis Hatfield MD [address] [address] PCP - General 07/24/24 documented as of this encounter
--- OUTSIDE RECORDS SUMMARY | 2025-04-14 08:44 | XMS_ITS | Encounter Summary ---
Author Organization Healthcare Address [address] [place] [address] Care Team Providers Care Hose Finisher Name Role Phone Luis Hatfield MD Primary Care Provider [phone] Encounter Details Date Type Department Care Team (Late st Contact Info) Description 02/21/2025 Telephone [facility] Multidisciplinary Oncology Clinic [address] [place] [address] Ochoa Matias MD [address] [facility] [address] [place] [address] Social History Tobacco Use Types Packs/Day Years [...] any time in the past 12 m [facility], were you homeless or living in [...] drink first t kimberlyn in the morning (EYE-SOFTWARE QA MANAGER) to steady your nerves or to [...] Patient stated understanding. * Telephone Encounter - Esther Gaines - 02/21/2025 8:50 AM EDT Patient Phone Message Reason for Call: Patient had tubes taken out on Monday and asking if she is asking to take a bath and or get in a hot tub. Best contact number and optimal time of day to reach caller: [phone] Note: Please do not reply to this message. Follow-up communication and further actions as a result of this message need to be communicated with the patient directly, if the patient is not active onMyChart. If the patient is active on MyChart, they will receive notification of the communication/outcome via [employer]. documented in this encounter Plan of Treatment Upcoming Encounters Date Type Department Care Team (Late st Contact Info) Description 05/14/2025 10:40 AM EST Office Visit [facility] [address] [place] [address] Lauren Christine PA [address] [facility] [address] [place] [address] documented as of this encounter Visit Diagnoses [...] documented as of this encounter Care Teams Hose Finisher Relationship Specialty Start Date End Date Luis Hatfield MD [address] [place] [address] PCP - General 07/24/24 documented as of this encounter
--- OUTSIDE RECORDS SUMMARY | 2025-04-14 08:44 | XMS_ITS | Clinical Summary ---
Author Organization [facility] Address [address] [place] [address] Care Team Providers Care Technical Training Coordinator Name Role Phone Luis Hatfield MD Primary Care Provider [phone] Allergies Active Allergy Reactions Criticality Noted Date [...] DNA 13.0 (<4.0), Centromere and Chromatin normal, ITEM PROCESSING CLERK and SCL 70 normal, Christine normal, SSA and SSB normal, total bilirubin 1.4, Glucose 117, CMP was ok otherwise, CCP negative, CRP Normal, RF 110 (<14.0 normal), ESR normal, TSH normal * Medications/treatments/interventions tried include: Tylenol, meloxicam, Advil, CBD oil, Tumeric, Aspirin, Plaquenil, she has seen podiatry (Miky Steele DPM), she has seen final touch up painter (Dr. Jed Trevino), Ketamine, [...] DNA 13.0 (<4.0), Centromere and Chromatin normal, ITEM PROCESSING CLERK and SCL 70 normal, Christine normal, SSA and SSB normal, total bilirubin 1.4, Glucose 117, CMP was ok otherwise, CCP negative, CRP Normal, RF 110 (<14.0 normal), ESR normal, TSH normal * Medications/treatments/interventions tried include: Tylenol, meloxicam, Advil, CBD oil, Tumeric, Aspirin, Plaquenil, she has seen podiatry (Miky Steele DPM), she has seen final touch up painter (Dr. Jed Trevino), Ketamine, [...] DNA 13.0 (<4.0), Centromere and Chromatin normal, ITEM PROCESSING CLERK and SCL 70 normal, Christine normal, SSA and SSB normal, total bilirubin 1.4, Glucose 117, CMP was ok otherwise, CCP negative, CRP Normal, RF 110 (<14.0 normal), ESR normal, TSH normal * Medications/treatments/interventions tried include: Tylenol, meloxicam, Advil, CBD oil, Tumeric, Aspirin, Plaquenil, she has seen podiatry (Miky Steele DPM), she has seen final touch up painter (Dr. Jed Trevino), Ketamine, [...] 01/28/2025 Results Follow-Up [facility] RHEUMATOLOGY [address] [place] [phone] Nguyen Romero, MARLON from Last 3 Months Family History Medical [...] Description 07/09/2025 10:45 AM EST Office Visit [facility] RHEUMATOLOGY [address] [address] Vicente Wells DO [address] [address] Health Maintenance Due Date Last Done Comments DXA SCAN 1955 COVID-19 Vaccine (#1) 1960 MAMMOGRAM 1994 COLOGUARD 1999 COLON CANCER SCREENING 5 YEA R SIGMOIDOSCOPY 1999 CT COLONOGRAPHY 1999 FECAL OCCULT BLOOD TEST 1999 FIT Testing (1 year) 1999 TDAP/TD VACCINES (2 - Tdap) 08/15/2006 08/15/1996 ZOSTER VACCINE (2 of 2) 04/16/2020 02/20/2020 ANNUAL WELLNESS VISIT 10/31/2023 INFLUENZA VACCINE 01/10/2025 Pneumococcal Vaccine 50+ (2 of 2 - [...] of5 resultswithin the time period is included. us [facility] [email or web address] BLOOD ORDERABLES F inal Result * Hydroxychloroquine, Whole Blood (01/17/2025) Blood [facility] [email or web address] [facility] BLOOD ORDERABLES F inal Result [facility] [address] [place] [address], [place] [phone] from Last 3 Months Insurance [employer] PPO Care Teams Technical Training Coordinator Relationship Specialty Start Date End Date Luis Hatfield MD [address] [place] [address] PCP - General Family Medicine 06/13/24
--- OUTSIDE RECORDS SUMMARY | 2025-04-14 08:44 | XMS_ITS ---
Author Organization [facility] Address [address] [place] [address] Care Team Providers Care Civilian Technician Name Role Phone Luis Hatfield MD Primary Care Provider [phone] Active Problems Problem Noted Date Diagnosed Date [...]
--- OUTSIDE RECORDS SUMMARY | 2025-04-14 08:44 | XMS_ITS | Encounter Summary ---
Author Organization [facility] Address [address] [place] [address] Care Team Providers Care Ammonia Operator Name Role Phone Luis Hatfield MD Primary Care Provider Encounter Details Date Type Department Care Team (Late Contact Info) Description 12/26/2024 Results Follow-Up [facility] RHEUMATOLOGY [address] [address] Vicente Wells DO [address] [address] Social History Tobacco Use Types Packs/Day Years [...] Description 07/09/2025 10:45 AM EST Office Visit [facility] RHEUMATOLOGY [address] [address] Vicente Wells DO [address] [phone] documented as of this encounter Visit Diagnoses Not on filedocumented in this encounter Care Teams Ammonia Operator Relationship Specialty Start Date End Date Luis Hatfield MD [address] [place] [address] PCP - General Family Medicine 06/13/24 documented as of this encounter
--- OUTSIDE RECORDS SUMMARY | 2025-04-14 08:44 | XMS_ITS | Encounter Summary ---
Author Organization Healthcare Address [address] [place] [address] Care Team Providers Care Mill And Coal Transport Operator Name Role Phone Luis Hatfield MD Primary Care Provider [phone] Encounter Details Date Type Department Care Team (Late st Contact Info) Description 08/19/2024 Lab Requisition [facility] [address] [place] [address] Ochoa Matias MD [address] [place] [address] Malignant neoplasm of bladder, unspecified (CMS/HCC) Social [...] in the past 12 m [facility], were you homeless or living [...] drink first t kimberlyn in the morning (EYE-BOAT PAINTER) to steady your nerves or to get [...] 05/14/2025 10:40 AM EST Office Visit [facility] Multidisciplinary Oncology Clinic [address] [place] [address] Lauren Christine PA [address] [place] [address] documented as of this encounter Procedures Procedure [...] name Selwyn Geller 09/05/2024 7:35 AM EDT [facility] Comment:[id number], A3 Test Result see scan 09/05/2024 7:35 AM EDT [facility] See Scanned Result 09/05/2024 7:35 AM EDT [facility] Tissue 07/23/2024 1:18 PM EST 08/19/2024 1:48 PM EDT us Ochoa Matias MD LAB REF LAB BLOOD AND FLUID ORD Final Result [facility] [address] [place] [address] * - AP Miscellaneous Test (07/23/2024 1:18 PM EST) Test name Viviane Keith 09/09/2024 8:04 AM EDT [facility] Comment:[id number], A3 Test Result see scan 09/09/2024 8:04 AM EDT [facility] See Scanned Result 09/09/2024 8:04 AM EDT [facility] Tissue 07/23/2024 1:18 PM EST 08/19/2024 1:48 PM EDT us Ochoa Matias MD LAB REF LAB BLOOD AND FLUID ORD Final Result [facility] [address] [place] [address] documented in this encounter Visit Diagnoses Diagnosis Malignant neoplasm of bladder, unspecified (CMS/HCC) documented in this encounter Additional Health Concerns Assessment Noted Time A Body Mass Index follow-up plan has been documented for the patient 07/25/2024 1:21 PM EST documented as of this encounter Care Teams Mill And Coal Transport Operator Relationship Specialty Start Date End Date Luis Hatfield MD [facility] [place] [address] PCP - General 07/24/24 documented as of this encounter
--- OUTSIDE RECORDS SUMMARY | 2025-04-14 08:44 | XMS_ITS | Encounter Summary ---
Author Organization [facility] Address [address] [id number] Care Team Providers Care Bookstore Manager Name Role Phone Luis Hatfield MD Primary Care Provider [phone] Encounter Details Date Type Department Care Team (Late Contact Info) Description 07/12/2024 Telephone [facility] RHEUMATOLOGY [address] [address] Vicente Wells DO [address] [phone] Social History Tobacco Use Types Packs/Day Years [...] Description 07/09/2025 10:45 AM EST Office Visit [facility] RHEUMATOLOGY [address] [address] Vicente Wells DO [address] [phone] documented as of this encounter Visit Diagnoses Not on filedocumented in this encounter Care Teams Bookstore Manager Relationship Specialty Start Date End Date Luis Hatfield MD [address] [facility] [address] [place] [address] PCP - General Family Medicine 06/13/24 documented as of this encounter
--- OUTSIDE RECORDS SUMMARY | 2025-04-14 08:44 | XMS_ITS | Encounter Summary ---
Author Organization [facility] Address [address] [id number] Care Team Providers Care Tax Compliance Representative Name Role Phone Luis Hatfield MD Primary Care Provider [phone] Encounter Details Date Type Department Care Team ([facility] Contact Info) Description 07/12/2024 Telephone [facility] RHEUMATOLOGY [address] [address] Santiago Anders MD [address] [phone] Social History Tobacco Use Types Packs/Day Years [...] Description 07/09/2025 10:45 AM EST Office Visit [facility] RHEUMATOLOGY [address] [address] Vicente Wells DO [address] [address] documented as of this encounter Visit Diagnoses Not on filedocumented in this encounter Care Teams Tax Compliance Representative Relationship Specialty Start Date End Date Luis Hatfield MD [address] [facility] [address] [place] [phone] PCP - General Family Medicine 06/13/24 documented as of this encounter
[2025-04-14] MEDS: IOPAMIDOL-370 (76%);100ML BOTTLE 75 ML IV (08:55)
[2025-04-14] MEDS: SODIUM CHLORIDE 0.9% 10ML SYR (RAD ONLY) 10 ML IV (08:55)
--- NOTE | 2025-04-14 09:00 | CT_ITS ---
FINAL REPORT TECHNIQUE: Thin section axial images were obtained from the thoracic inlet through the upper abdomen after intravenous contrast injection. Reconstruction images were obtained from the axial data. Exam was performed using dose reduction technique. CLINICAL HISTORY: bladder cancer COMPARISON: 01/14/2025 FINDINGS: There is no mediastinal, hilar, or axillary lymphadenopathy. There is no pleural or pericardial effusion. There is a stable small hiatal hernia present. There is a 15 mm ground glass right upper lobe nodule best seen on image #27 of series 4, which is stable when compared to the prior exam. There is evidence of prior granulomatous disease. There are several subpleural less than 4 mm in size left upper lobe nodules which are also stable. No acute osseous abnormality. IMPRESSION: 1. 15 mm ground glass right upper lobe nodule, stable. 2. Several subpleural less than 4 mm in size left upper lobe nodules, also stable. Reviewed, Interpreted and Dictated by Nadine Mathis MD Transcribed by Colleen Duran Authenticated and [facility]
--- NOTE | 2025-04-14 09:00 | CT_ITS ---
FINAL REPORT TECHNIQUE: Thin section axial images are obtained through the abdomen and pelvis after intravenous contrast. Reconstruction images were obtained from the axial data. Exam was performed using dose reduction techniques. CLINICAL HISTORY: bladder cancer COMPARISON: 01/14/2025 FINDINGS: LIVER: On early arterial phase imaging of the liver, images that were obtained during the chest CT bolus injection and are seen on the chest CT images, there are several hypervascular liver lesions. For example, there is a lesion in the left lobe of the liver measuring 10 mm in size, was previously 11 mm. There is a second hypervascular lesion in the lateral right lobe of the liver, 9 mm in size, that was not well-seen on the prior exam. There are several additional small hypervascular lesions on portal venous phase imaging. These were not visualized on the prior examination, but could represent small hypervascular metastases or flash filling of hemangiomas, less likely adenomas. GALLBLADDER/BILIARY SYSTEM: The gallbladder is absent. No biliary dilatation. SPLEEN: Unremarkable. PANCREAS: Unremarkable. ADRENALS: Unremarkable. KIDNEYS/URETERS/BLADDER: The previously seen percutaneous nephrostomy tubes have been removed since the prior exam, and bilateral ureteral stents are present. There is mild right greater than left hydronephrosis despite the presence of the ureteral stents. There is wall thickening of the urinary bladder, asymmetric to the left, that may represent the known bladder tumor. GI TRACT: No small bowel obstruction or dilatation. Normal appendix. Moderate retained stool is present in the proximal colon. PELVIC ORGANS: Unremarkable for age. LYMPH NODES/RETROPERITONEUM/MESENTERY: No lymphadenopathy. No abdominal aortic aneurysm. ABDOMINAL WALL: The abdominal wall is intact. FREE FLUID: No ascites. BONES: There is further healing of the left inferior pubic ramus fracture seen on the prior CT. There are changes of kyphoplasty in the L1 vertebral body which are stable. IMPRESSION: 1. There are several hypervascular liver lesions as described above, which were seen on either arterial phase imaging (obtained during the chest CT) or portal vein phase imaging. These could represent small hypervascular metastases or flash filling of hemangiomas, with adenomas felt to be less likely. Consider PET/CT for further evaluation. 2. Wall thickening of the urinary bladder, asymmetric to the left, that may represent the patient's known bladder tumor. 3. In the interval since the prior exam the percutaneous nephrostomy tubes have been removed, and bilateral ureteral stents are now present. There is mild right greater than left hydronephrosis despite the presence of the ureteral stents. Reviewed, Interpreted and Dictated by Nadine Mathis MD Transcribed by Colleen Duran Authenticated and . [facility]
== END 2025-04-14 23:59 | disposition home or self-care (01) ==
LOC: RAD 08:36
PROVIDERS: PCP Family Medicine; Visit Provider Internal Medicine Medical Oncology
DX: C67.9 Malignant neoplasm of bladder, unspecified (principal); R91.8 Other nonspecific abnormal finding of lung field; K76.9 Liver disease, unspecified; N32.89 Other specified disorders of bladder; N13.30 Unspecified hydronephrosis; D64.9 Anemia, unspecified; Z96.0 Presence of urogenital implants
CPT/HCPCS: 71260; 74177; Q9967

== ENCOUNTER 2025-04-17 09:22 | Outpatient (CLI) | payer MEDICARE, SELFPAY ==
--- OUTSIDE RECORDS SUMMARY | 2024-05-31 06:30 | XMS_ITS ---
Author Organization [facility] Address [address] [facility] [address] [place] [id number] Care Team Providers Care Fleet Operations Manager Name Role Phone Nikki Sevilla Primary Care Provider Luis Hatfield [phone] REASON FOR VISIT 2 Week Follow Up on UTI Encounters Encounter Location Date Provider Diagnosis [facility] [address] [place] [id number] 05/31/2024 Luis Hatfield Plan Of Treatment Next Appt Details Provider Name:Luis Hernández ry, 08/04/2025 09:30:00 AM, [address], [address], [place], [id number], Progress Notes * Leandro PRITCHARDOB:[birth year] (70 yo F)Acc No.[id number]:05/31/2024 Progress Notes Patient: Trey TREJOine Provider: Clay Hatfield M.D. :1955 A ge:69 Y S ex:Female Date:05/31/2024 Address:[address] [place] [address] [place] Jaram[id number] Pcp:Nikki Sevilla Subjective: * Chief Complaints: * 1 . 2 Week Follow Up on UTI. * Medical History: Objective: * Vitals: Assessment: Plan: * Treatment: * Procedure Codes: G 2211 Complex e/m visit add on * Images: Billing Information: * Visit Code: * Procedure Codes: G2211 Complex e/m visit add on. * Electronic signature of Vicky Hatfield MD on 04/17/2025 at 09:30 AM EST Sign off status: Pending * Provider: Clay Hatfield M.D. Date: 08/01/2023 Generated for Gonzales jaquez/Joyce/Gonzalez on: 06/17/2024 09:30 AM EST
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
--- OUTSIDE RECORDS SUMMARY | 2024-09-17 05:15 | XMS_ITS ---
Author Organization [facility] Address [address] [facility] [address] [facility] [address] [facility] [address] [place] [phone] Care Team Providers Care Food Analyst Name Role Phone Nikki Sevilla Primary Care Provider [phone] Luis Hatfield [phone] REASON FOR VISIT 6 week f/u Encounters Encounter Location Date Provider Diagnosis [facility] [address] [place], [place] [phone] 09/17/2024 Lius Hatfield Plan Of Treatment Next Appt Details Provider Name:Luis Hernández ry, 08/04/2025 09:30:00 AM, [address], [address], [place], [place], [phone], Progress Notes * Leandro PRITCHARDOB:[birth year] (70 yo F)Acc No.[id number]:09/17/2024 Progress Notes Patient: Sergei TREJOestine Provider: Clay Hatfield M.D. :1955 A ge:69 Y S ex:Female Date:09/17/2024 Address:[address] [place] [address] [place] [id number] Pcp:Nikki Sevilla Subjective: * Chief Complaints: * 1 . 6 week f/u. * Medical History: Objective: * Vitals: Assessment: Plan: * Treatment: * Images: Billing Information: * Visit Code: * Procedure Codes: * Electronic signature of Vicky Hatfield MD on 04/17/2025 at 09:31 AM EST Sign off status: Pending * Provider: Clay Hatfield M.D. Date: 0 09/17/2024 Generated for Gonzales jaquez/Joyce/Gonzalez on: 1 06/17/2024 09:31 AM EST
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
[2025-04-17 09:24] VITALS: BMI 23.5
--- OUTSIDE RECORDS SUMMARY | 2025-04-17 09:28 | XMS_ITS | Encounter Summary ---
Author Organization Healthcare Address [address] [place] [address] Care Team Providers Care Examiner Of Currency Name Role Phone Luis Hatfield MD Primary Care Provider [phone] Encounter Details Date Type Department Care Team (Late st Contact Info) Description 02/21/2025 Telephone [facility] [address] [place] [address] Ochoa Matias MD [address] [facility] [address] [place] [id number] Social History Tobacco Use Types Packs/Day Years [...] drink first t kimberlyn in the morning (EYE-DISSOLVER OPERATOR) to steady your nerves or to [...] optimal time of day to reach caller: [phone] Note: Please do not reply to this message. Follow-up communication and further actions as a result of this message need to be communicated with the patient directly, if the patient is not active onMyChart. If the patient is active on MyChart, they will receive notification of the communication/outcome via [employer]. documented in this encounter Plan of Treatment Upcoming Encounters Date Type Department Care Team (Late st Contact Info) Description 05/14/2025 10:40 AM EST Office Visit [facility] [address] [place] [address] Lauren Christine PA [address] [facility] [address] [place] [address] documented as of this encounter Visit Diagnoses [...] documented as of this encounter Care Teams Examiner Of Currency Relationship Specialty Start Date End Date Luis Hatfield MD [address] [place] [address] PCP - General 07/24/24 documented as of this encounter
--- OUTSIDE RECORDS SUMMARY | 2025-04-17 09:28 | XMS_ITS | Encounter Summary ---
Author Organization Healthcare Address [address] [place] [address] Care Team Providers Care Brass Instrument Repair Technician Name Role Phone Luis Hatfield MD Primary Care Provider [phone] Encounter Details Date Type Department Care Team (Late st Contact Info) Description 03/04/2025 Telephone [facility] Interventional Radiology [address] [place] [address] Sunil Marrufo, RN Social History Tobacco Use [...] any time in the past 12 m [facility], were you homeless or living [...] drink first t kimberlyn in the morning (EYE-HYDROPRESS OPERATOR) to steady your nerves or to [...] Multidisciplinary Oncology Clinic [address] [place] [address] Lauren Christine PA [address] [place] [address] documented as of this encounter Visit Diagnoses [...] documented as of this encounter Care Teams Brass Instrument Repair Technician Relationship Specialty Start Date End Date Luis Hatfield MD [address] [facility] [address] [place] [address] PCP - General 07/24/24 documented as of this encounter
--- OUTSIDE RECORDS SUMMARY | 2025-04-17 09:28 | XMS_ITS | Clinical Summary ---
Author Organization [facility] Address [address] [place] [address] Care Team Providers Care Farmworker [employer]oder Farm Name Role Phone Luis Hatfield MD Primary Care Provider [phone] Allergies Active Allergy Reactions Criticality Noted Date [...] 13.0 (<4.0), Centromere and Chromatin normal, SINGLE NEEDLE TUFTING MACHINE OPERATOR and SCL 70 normal, Christine normal, SSA and SSB normal, total bilirubin 1.4, Glucose 117, CMP was ok otherwise, CCP negative, CRP Normal, RF 110 (<14.0 normal), ESR normal, TSH normal * Medications/treatments/interventions tried include: Tylenol, meloxicam, Advil, CBD oil, Tumeric, Aspirin, Plaquenil, she has seen podiatry (Miky Steele DPM), she has seen manufacturing engineer paint (Dr. Jed Trevino), Ketamine, gabapentin, She has [...] 13.0 (<4.0), Centromere and Chromatin normal, SINGLE NEEDLE TUFTING MACHINE OPERATOR and SCL 70 normal, Christine normal, SSA and SSB normal, total bilirubin 1.4, Glucose 117, CMP was ok otherwise, CCP negative, CRP Normal, RF 110 (<14.0 normal), ESR normal, TSH normal * Medications/treatments/interventions tried include: Tylenol, meloxicam, Advil, CBD oil, Tumeric, Aspirin, Plaquenil, she has seen podiatry (Miky Steele DPM), she has seen manufacturing engineer paint (Dr. Jed Trevino), Ketamine, gabapentin, She has [...] 13.0 (<4.0), Centromere and Chromatin normal, SINGLE NEEDLE TUFTING MACHINE OPERATOR and SCL 70 normal, Christine normal, SSA and SSB normal, total bilirubin 1.4, Glucose 117, CMP was ok otherwise, CCP negative, CRP Normal, RF 110 (<14.0 normal), ESR normal, TSH normal * Medications/treatments/interventions tried include: Tylenol, meloxicam, Advil, CBD oil, Tumeric, Aspirin, Plaquenil, she has seen podiatry (Miky Steele DPM), she has seen manufacturing engineer paint (Dr. Jed Trevino), Ketamine, gabapentin, She has had back injections 1. Continue/refill hydroxychloroquine 2. Check labs 3. Continue/refill meloxicam PRN 4. We gave her a handout on rheumatoid arthritis to take home and review 5. Follow up in 4-6 months Resolved Problems Problem Noted Date Diagnosed Date Resolved Date Rheumatoid arthritis 12/25/2023 025 Encounters Date Type Department Care Team Description 01/28/2025 Results Follow-Up [facility] [address] [place] [address] Nguyen Romero, MARLON from Last 3 [...] Description 07/09/2025 10:45 AM EST Office Visit [facility] [address] [address] Vicente Wells DO [address] [address] Health Maintenance Due Date Last Done Comments [...] the time period is included. us [facility] [employer] [facility] BLOOD ORDERABLES F inal Result * Hydroxychloroquine, Whole Blood (01/17/2025) Blood [facility] [employer] [facility] BLOOD ORDERABLES F inal [facility] [address] [place] [address], [place] [phone] from Last 3 Months Insurance [employer] PPO Care Teams Farmworker Brooder Farm Relationship Specialty Start Date End Date Luis Hatfield MD [address] [place] [address] PCP - General Family Medicine 06/13/24
--- OUTSIDE RECORDS SUMMARY | 2025-04-17 09:29 | XMS_ITS | Encounter Summary ---
Author Organization [facility] Address [address] [id number] Care Team Providers Care Proofer Prepress Name Role Phone Luis Hatfield MD Primary Care Provider [phone] Encounter Details Date Type Department Care Team ([facility] Contact Info) Description 07/12/2024 Telephone [facility] [address] [address] Santiago Anders MD [address] [id number] Social History Tobacco Use Types Packs/Day Years [...] Visit [facility] [address] [address] Vicente Wells DO [address] [address] documented as of this encounter Visit Diagnoses Not on filedocumented in this encounter Care Teams Proofer Prepress Relationship Specialty Start Date End Date Luis Hatfield MD [address] [facility] [address] [place] [id number] PCP - General Family Medicine 06/13/24 documented as of this encounter
--- OUTSIDE RECORDS SUMMARY | 2025-04-17 09:29 | XMS_ITS | Data Portability ---
Author Organization [facility] Address [address] [place] [address] Care Team Providers Care Business Intelligence Director Name Role Phone DENA HERNANDEZ Primary Care [...] or vaginal 2021 022 [facility], [address], [address], [place], [address], 2 04:19:41 pathology study - ECC, 3pm ecto Cervix 2020 021 [facility], [address], [address], [place], [address], 1 13:08:46 pap, IG + HPV 2019 021 [facility], [address], [address], [place], [address], 1 16:12:16 urinalysis, dipstick 2020 021 [facility], [address], [address], [place], [address], 1 08:09:55 culture, urine 2020 021 [facility], [address], [address], [place], [address], 1 08:09:56 pap, IG + HPV 2019 020 [facility], [address], [address], [place], [address], 0 20:08:32 Referral None recorded. Procedures None recorded. Surgeries None recorded. Imaging LDCT, chest, for lung cancer screening - last LDCT 11/24/20 [facility] 2021 022 [facility] (Scheduling), [address], [place], [address], 3 10:18:56 MAMMO, diagnostic, digital, bilateral 2021 022 [facility] (Scheduling), [address], [place], [address], 2 14:54:58 DEXA, vertebral fracture assessment 2021 022 [facility] (Scheduling), [address], [place], [address], 3 11:24:25 MAMMO, screening, digital, bilateral 2019 020 [facility] (Scheduling), [address], [place], [address], 1 09:45:02 LDCT, chest, for lung cancer screening 2019 021 [facility] (Scheduling), [address], [place], [address], 1 10:07:32 LDCT, chest, for lung cancer screening 2019 020 [facility] (Scheduling), [address], [place], [address], 0 11:16:35 CT, abdomen + pelvis, w/wo contrast 2019 020 [facility] (Scheduling), [address], [place], [address], 0 15:50:03 US, transvagina l 2019 020 [facility] Manager Secondary, [address] [place], [place] [address], [place], [address], 0 12:28:27 Medication Orders Fosamax 70 mg tablet 2021 022 [facility], [address] [address] [place], [id number], 2 17:35:13 alendronate 35 mg tablet [address] [facility] #57732, [address] [address] [place], [id number], 2 11:03:04 Premarin 0.625 mg/gram vaginal cream [address] - [address], [place], [address], 2 11:03:27 Patient TargetsNo targets recorded. Patient Instructions Encounter Date Encounter Id Patient Instructions Last Modified By Organization Details Last Modified Time 10/09/2020 [id number] medical record request* - please send copy of colonoscopy and pathology 2020 Not available 12/18/2020 16:46:06 A healthy lifestyle: care instructions lshower Not available 10/09/2020 16:31:48 body mass index: care instructions lshower Not available 10/09/2020 16:31:48 learning about healthy weight lshower Not available 10/09/2020 16:31:48 11/12/2020 [id number] Will await pathology samples. Barring any unexpected high-grade changes, probably can modify plan to 1 more year expectant management as she had had diagnostic LEEP showing only HPV changes 3 2 0 20-was thinking she had not had initial LEEP yet when plan for LEEP follow-up was made leaving today. Can probably modify to 6 months Pap/HPV. I am fairly sure she will have persistent unsatisfactory colposcopy and even inadequate Pap testing with cervical stenosis following initial LEEP lshower Not available 11/12/2020 19:29:30 11/24/2021 [id number] learning about healthy weight lshower Not available [...] diffe renti ation . Not Available [facility] ([facility]) [address], [place], [address], 02/25/2020 20:08:32 02/20/20 20 02/25/2020 pap, IG + HPV diagnosis: Commen t abnormal EPITH ELIAL CELL ABNOR MALIT Y. ATYPI FLOYD SQUAM OUS CELLS OF UNDET ERMIN ED SIGNI FICAN CE (ASC- US). Not Available [facility] ([facility]) [address] [place], [address], 02/25/2020 20:08:32 02/20/20 20 02/25/2020 pap, IG + HPV specimen adequacy: Briseyda parks Satis facto ry for evalu ation . Endoc ervic al and/o r squam ous metap lasti c cells (endo cervi floyd compo nent) are prese nt. Not Available [facility] ([facility]) [address] [place], [address], 02/25/2020 20:08:32 02/20/20 20 02/25/2020 pap, IG + HPV clinician provided ICD10: Briseyda parks R87.8 10 Not Available [facility] ([facility]) [address] [place], [address], 02/25/2020 20:08:32 02/20/20 20 02/25/2020 pap, IG + HPV performed by: Briseyda Weston ws, Cytot echno logis t (ASCP ) Not Available [facility] ([facility]) [address] [place], [address], 02/25/2020 20:08:32 02/20/20 20 02/25/2020 pap, IG + HPV electronical ly signed by: Briseyda Anders MD, Patho logis t Not Available [facility] ([facility]) [address] [place], [address], 02/25/2020 20:08:32 02/20/20 20 02/25/2020 pap, IG + HPV . . Not Available [facility] ([facility]) [address] [place], [address], 02/25/2020 20:08:32 02/20/20 20 02/25/2020 pap, IG + HPV pathologist provided ICD10: Briseyda parks R87.6 10 Not Available [facility] ([facility]) [address] [place], [address], 02/25/2020 20:08:32 02/20/20 20 02/25/2020 pap, IG + HPV note: Commen t The Pap smear is a scree [...] ts do occur . Not Available [facility] ([facility]) [address] [place], [address], 02/25/2020 20:08:32 02/20/20 20 02/25/2020 pap, IG + HPV test methodology: Briseyda t This liqui d based ThinP rep(R ) pap test was scree trell with the use of an image guide divya systluisito m. Not Available [facility] ([facility]) [address] [place], [address], 02/25/2020 20:08:32 10/10/19 21 10/10/2020 urina lysis , dipst ick specific gravity 1.006 1.005- 1.030 Not Available [facility] ([facility]) [address] [place], [address], 10/11/2020 08:09:55 10/10/19 21 10/10/2020 urina lysis , dipst ick pH 6.0 5.0-7. 5 Not Available [facility] ([facility]) [address] [place], [address], 10/11/2020 08:09:55 10/10/19 21 10/10/2020 urina lysis , dipst ick urine-color Yellow yellow Not Available [facility] ([facility]) [address] [place], [address], 10/11/2020 08:09:55 10/10/19 21 10/10/2020 urina lysis , dipst ick appearance Clear clear Not Available [facility] ([facility]) [address] [place], [address], 10/11/2020 08:09:55 10/10/19 21 10/10/2020 urina lysis , dipst ick WBC esterase Negati ve negati ve Not Available [facility] ([facility]) [address] [place], [address], 10/11/2020 08:09:55 10/10/19 21 10/10/2020 urina lysis , dipst ick protein Negati ve negati ve/tra ce Not Available [facility] ([facility]) [address] [place], [address], 10/11/2020 08:09:55 10/10/19 21 10/10/2020 urina lysis , dipst ick glucose Negati ve negati ve Not Available [facility] ([facility]) [address] [place], [address], 10/11/2020 08:09:55 10/10/19 21 10/10/2020 urina lysis , dipst ick ketones Negati ve negati ve Not Available [facility] ([facility]) [address] [place], [address], 10/11/2020 08:09:55 10/10/19 21 10/10/2020 urina lysis , dipst ick occult blood Negati ve negati ve Not Available [facility] ([facility]) [address] [place], [address], 10/11/2020 08:09:55 10/10/19 21 10/10/2020 urina lysis , dipst ick bilirubin Negati ve negati ve Not Available [facility] ([facility]) [address] [place], [address], 10/11/2020 08:09:55 10/10/1910/10/2020 urina lysis , dipst ick urobilinogen ,semi-qn 0.2 mg/dL 0.2-1. 0 Not Available [facility] ([facility]) [address] [facility], [place], [address], 10/11/2020 08:09:55 10/10/19 21 10/10/2020 urina lysis , dipst ick nitrite, urine Negati ve negati ve Not Available [facility] ([facility]) [address] [facility], [place], [address], 10/11/2020 08:09:55 10/10/1910/10/2020 urina lysis , dipst ick microscopic examination Commen t Micro scopi c not indic ated and not perfo rmed. Not Available [facility] ([facility]) [address] [facility], [place], [address], 10/11/2020 08:09:55 10/10/1910/11/2020 cultu re, urine urine culture, routine Final report Not Available [facility] ([facility]) [address] [facility], [place], [address], 10/11/2020 08:09:56 10/10/1910/11/2020 cultu re, urine result 1 No growth Not Available [facility] ([facility]) [address] [facility], [place], [address], 10/11/2020 08:09:56 10/10/1910/14/2020 pap, IG + HPV HPV aptima Positi ve negati ve abnormal This nucle ic acid ampli ficat ion test detec ts fourt een high- risk HPV types (16,1 8,31, 33,35 ,39,4 5,51, 52,56 ,58,5 9,66, 68) witho ut diffe renti ation . Not Available [facility] ([facility]) [address] [facility], [place], [address], 10/15/2020 16:12:16 10/10/19 21 10/15/2020 pap, IG + HPV diagnosis: Commen t abnormal EPITH ELIAL CELL ABNOR MALIT Y. LOW GRADE SQUAM OUS INTRA EPITH ELIAL LESIO N (LSIL ). Not Available [facility] ([facility]) [address] [facility], [place], [address], 10/15/2020 16:12:16 10/10/19 21 10/15/2020 pap, IG + HPV recommendati on: Briseyda t abnormal Sugge st follo w up as clini duglas appro priat e. Not Available [facility] ([facility]) [address] [facility], [place], [address], 10/15/2020 16:12:16 10/10/19 21 10/15/2020 pap, IG + HPV specimen adequacy: Commmary t Satis facto ry for evalu ation . Endoc ervic al and/o r squam ous metap lasti c cells (endo cervi floyd compo nent) are prese nt. Not Available [facility] ([facility]) [address] [facility], [place], [address], 10/15/2020 16:12:16 10/10/19 21 10/15/2020 pap, IG + HPV clinician provided ICD10: Briseyda parks R87.8 10 Z12.4 N39.4 6 Not Available [facility] ([facility]) [address] [place], [address], 10/15/2020 16:12:16 10/10/19 21 10/15/2020 pap, IG + HPV performed by: Briseyda Amezcua ond, Cytot jaimie parks (ASCP ) Not Available [facility] ([facility]) [address] [place], [address], 10/15/2020 16:12:16 10/10/19 21 10/15/2020 pap, IG + HPV electronical ly signed by: Briseyda Bermudez MD, Patho fortino t Not Available [facility] ([facility]) [address] [facility], [place], [address], 10/15/2020 16:12:16 10/10/19 21 10/15/2020 pap, IG + HPV . . Not Available [facility] ([facility]) [address] [place], [address], 10/15/2020 16:12:16 10/10/19 21 10/15/2020 pap, IG + HPV pathologist provided ICD10: Briseyda parks R87.6 12 Not Available [facility] ([facility]) [address] [facility], [place], [address], 10/15/2020 16:12:16 10/10/19 21 10/15/2020 pap, IG [...] ts do occur . Not Available [facility] ([facility]) [address] [facility], [place], [address], 10/15/2020 16:12:16 10/10/19 21 10/15/2020 pap, IG + HPV test methodology: Briseyda parks This liqui d based ThinP rep(R ) pap test was scree trell with the use of an image guide divya systluisito cee. Not Available [facility] ([facility]) [address] [place], [address], 10/15/2020 16:12:16 10/10/19 21 10/19/2020 HPV genot ypes 16, 18, 45, unspe cifie d speci men HPV genotype 16 Positi ve negati ve abnormal Not Available [facility] ([facility]) [address] [place], [address], 10/19/2020 20:07:50 10/10/19 21 10/19/2020 HPV genot ypes 16, 18, 45, unspe cifie d speci men HPV genotype 18,45 Negati ve negati ve Not Available [facility] ([facility]) [address] [place], [address], 10/19/2020 20:07:50 10/10/1910/16/2020 pleas e note please note Commen t We have recei aftab your reque st for addit ional testi ng or test verif icati on. You will be notif ied if we are unabl e to proce ss your reque st. Not Available [facility] ([facility]) [address] [facility], [place], [address], 10/19/2020 20:07:51 10/10/1910/16/2020 jany en autho rizat ion written authorizatio n Commen t Jany en Autho rizat ion Recei aftab. Autho rizat ion recei aftab from Jany en Reque st 10-16 Logge d by Luisana Farr Not Available [facility] ([facility]) [address] [place], [address], 10/19/2020 20:07:52 11/13/1911/16/2020 patho logy study . Commen t Mater ial submi tted: . PART A: endoc ervix - ENDOC ERVIC AL CURET TAGE PART B: ectoc ervix - ECTOC ERVIC AL BIOPS Y 3:00. Modif iers: 3:00 Not Available [facility] ([facility]) [address] [facility], [place], [address], 11/16/2020 13:08:46 11/13/1911/16/2020 patho logy study . Commen t Clini floyd histo ry: . R87.6 22 Not Available [facility] ([facility]) [address] [facility], [place], [address], 11/16/2020 13:08:46 11/13/19 21 11/16/2020 patho logy [...] patie nt's recen t pap smear . [facility] 11/16 1251 Local Not Available [facility] ([facility]) [address] [facility], [place], [address], 11/16/2020 13:08:46 11/13/1911/16/2020 patho logy study . Commen t Tracee brar d: . Yvette Bermudez MD, Patho logis t Not Available [facility] ([facility]) [address] [facility], [place], [address], 11/16/2020 13:08:46 11/13/19 21 11/16/2020 patho logy study . Commen t Gross descr iptio n: . 2 Conta [...] CL 11/13 0639 Local Not Available [facility] ([facility]) [address] [facility], [place], [address], 11/16/2020 13:08:46 11/13/19 21 11/16/2020 patho logy study . Commen t Patho logis t provi ded ICD-1 0: N87.0 , N72, N87.0 Not Available [facility] ([facility]) [address] [facility], [place], [address], 11/16/2020 13:08:46 11/13/19 21 11/16/2020 patho logy study . Commmary t CPT . 98931 1, 85398 2 Not Available [facility] ([facility]) [address] [facility], [place], [address], 11/16/2020 13:08:46 11/25/19 22 11/25/2021 IGP, APTIM A HPV, RFX 16/18 ,45 HPV aptima Positi ve negati ve abnormal This nucle ic acid ampli ficat ion test detec ts fourt een high- risk HPV types (16,1 8,31, 33,35 ,39,4 5,51, 52,56 ,58,5 9,66, 68) witho ut diffe renti ation . Not Available [facility] ([facility]) [address] [facility], [place], [address], 11/30/2021 04:19:41 11/25/19 22 11/29/2021 IGP, APTIM A HPV, RFX 16/18 ,45 diagnosis: Commen t NEGAT DAVIE FOR INTRA EPITH ELIAL LESIO N OR MALNEAL POTTS . REACT DAVIE CELLU LAR SPANGLER ES AND/O R REPAI R ARE PRESE NT. Not Available [facility] ([facility]) [address] [facility], [place], [address], 11/30/2021 04:19:41 11/25/19 22 11/29/2021 IGP, APTIM A HPV, RFX 16/18 ,45 specimen adequacy: Commen t Satis facto ry for evalu ation . Endoc ervic al and/o r squam ous metap lasti c cells (endo cervi floyd compo nent) are prese nt. Not Available [facility] ([facility]) [address] [facility], [place], [address], 11/30/2021 04:19:41 11/25/19 22 11/29/2021 IGP, APTIM A HPV, RFX 16/18 ,45 clinician provided ICD10: Commen t N87.0 R87.8 10 Z12.4 Not Available [facility] ([facility]) [address] [facility], [place], [address], 11/30/2021 04:19:41 11/25/19 22 11/29/2021 IGP, APTIM A HPV, RFX 16/18 ,45 performed by: Briseyda wilkerson, Cytot echno logis t (ASCP ) Not Available [facility] ([facility]) [address] [place], [address], 11/30/2021 04:19:41 11/25/19 22 11/29/2021 IGP, APTIM A HPV, RFX 16/18 ,45 electronical ly signed by: Briseyda Jerome MD, Patho logis t Not Available [facility] ([facility]) [address] [place], [address], 11/30/2021 04:19:41 11/25/19 22 11/29/2021 IGP, APTIM A HPV, RFX 16/18 ,45 . . Not Available [facility] ([facility]) [address] [place], [address], 11/30/2021 04:19:41 11/25/19 22 11/29/2021 IGP, APTIM A HPV, RFX 16/18 ,45 note: Briseyda parks The Pap smear is a scree amira test uri cai to aid in the detec tion of ibeth ligna nt and malig nant condi tions of the uteri ne cervi x. It is not a diagn ostic proce dure and shoul d not be used as the sole means of detec ting cervi floyd cance r. Both false -posi tive and false -nega tive repor ts do occur . Not Available [facility] ([facility]) [address] [place], [address], 11/30/2021 04:19:41 11/25/19 22 11/29/2021 IGP, APTIM A HPV, RFX 16/18 ,45 test methodology: Briseyda parks This liqui d based ThinP rep(R ) pap test was scree trell with the use of an image guide divya systluisito m. Not Available [facility] ([facility]) [address] [facility], [place], [address], 11/30/2021 04:19:41 11/25/19 22 11/30/2021 IGP, APTIM A HPV, RFX 16/18 ,45 HPV genotype 16 Positi ve negati ve abnormal Not Available [facility] ([facility]) [address] [facility], [place], [address], 11/30/2021 04:19:41 11/25/19 22 11/30/2021 IGP, APTIM A HPV, RFX 16/18 ,45 HPV genotype 18,45 Negati ve negati ve Not Available [facility] ([facility]) [address] [facility], [place], [address], 11/30/2021 04:19:41 10/24/19 20 10/21/2019 US, trans vagin al No observ ation record ed. [facility] Manager Secondary [address] [place] [address] , [place], [address], 10/24/2019 14:21:08 11/22/19 20 11/21/2019 CT, abdom en + pelvi s, w/wo contr ast No observ ation record ed. [address] ([facility]) [address] [place] [address] [address], [place], [address], 11/26/2019 15:59:56 12/02/19 20 11/21/2019 LDCT, chest , for lung cance r scree amira No observ ation record ed. [address] [facility] [address] [place], [id number], 12/03/2019 17:56:14 12/02/19 20 11/21/2019 LDCT, chest , for lung cance r scree amira No observ ation record ed. [address] [facility] [address], [place], [id number], 12/03/2019 17:56:20 07/28/19 21 07/21/2020 MAMMO , scree amira, digit al, bilat eral No observ ation record ed. [email or web address] (Scheduling) [address], [place], [address], 07/29/2020 09:47:15 08/19/19 21 08/13/2020 MAMMO , diagn ostic , digit al, unila teral No observ ation record ed. [email or web address] [facility] (Scheduling) [address], [place], [address], 08/26/2020 10:51:43 08/19/1908/13/2020 US, breas t, bilat eral No observ ation record ed. [email or web address] (Scheduling) [address], [place], [address], 08/19/2020 10:56:01 08/19/19 21 08/13/2020 US, breas t, bilat eral No observ ation record ed. [email or web address] (Scheduling) [address], [place], [address], 08/19/2020 10:56:01 02/26/20 21 02/16/2021 MAMMO , diagn ostic , digit al, bilat eral No observ ation record ed. [facility] (Scheduling) [address], [place], [address], 02/26/2021 16:48:48 02/26/2002/16/2021 US, breas t, bilat eral No observ ation record ed. [email or web address] [facility] (Scheduling) [address], [place], [address], 03/02/2021 08:55:48 02/26/2002/16/2021 US, breas t, bilat eral No observ ation record ed. [facility] (Scheduling) [address], [place], [address], 02/26/2021 16:48:49 02/26/2002/16/2021 US, breas t, bilat eral No observ ation record ed. Not Available 2020 16:48:48 03/22/2003/15/2021 biops y, breas t, w/ ultra sound pascual nce (PROC ) No observ ation record ed. [address] (Scheduling) [address], [place], [address], 03/23/2021 07:59:27 03/22/2003/15/2021 biops y, breas t, w/ ultra sound pascual nce (PROC ) No observ ation record ed. [address] (Scheduling) [address], [place], [address], 03/23/2021 07:59:33 03/22/2003/15/2021 biops y, breas t, w/ ultra sound pascual nce (PROC ) No observ ation record ed. [address] (Scheduling) [address], [place], [address], 03/23/2021 07:59:41 03/22/2003/15/2021 biops y, breas t, w/ ultra sound pascual nce (PROC ) No observ ation record ed. [address] (Scheduling) [address], [place], [address], 03/23/2021 07:59:51 03/22/20 21 03/15/2021 biops y, breas t, w/ ultra sound pascual nce (PROC ) No observ ation record ed. [address] (Scheduling) [address], [place], [address], 03/23/2021 07:59:56 03/22/2003/15/2021 biops y, breas t, w/ ultra sound pascual nce (PROC ) No observ ation record ed. [email or web address] [facility] (Scheduling) [address], [place], [address], 03/23/2021 08:00:02 12/01/19 22 11/30/2021 MAMMO , diagn ostic , digit al, bilat eral No observ ation record ed. [address], [place], [address], 12/01/2021 09:54:59 09/15/19 23 09/14/2022 LDCT, chest , for lung cance r scree amira No observ ation record ed. [address], [place], [address], 09/20/2022 15:53:33 09/15/19 23 09/14/2022 DEXA, verte bral fract ure asses sment No observ ation record ed. [address], [place], [address], 09/20/2022 15:53:33 Result Notes None recorded. Problems Name Problem SNOMED Code Status Onset Date Resolution Date Notes Provider Name and Address Organization Details Recorded Time History of dysplasi a of cervix 994226615 Active Narda [place] null, [place] - [facility] 3 10:54:30 Heartbur n 13201470 Active 2017 Terese Millan null, [place] - [facility] 8 10:26:54 Cigarett e smoker 68794153 Completed 201711/23/2022 Narda Bennett null [place] - [facility] 3 10:54:37 HPV - Human papillom avirus test positive Active 2017 Type 16; unsatisf actory colpo Chelsea Nieves, COMM[employer] LOAN REVIEWER [address], [place], [address], [place] - [facility] 0 09:25:25 Mammogra phy abnormal 997294231 Completed 201710/06/2020 nodule UOQ Rt; 6 month f/u Narda Bennett null, [place] - [facility] 3 10:52:33 Osteopen ia 959423685 Active 201907/17/2019 osteopen ia noted on DEXA; recommen d to start alendron ate 35mg once weekly; encourag e CA 1200-150 0mg/day and Vitamin D 800IU/da latrell; recommen d regular weight-b earing exercise ; rpt DEXA 2 yr Narda Bennett null, [place] - [facility] 1 11:08:43 Multiple cysts of breast 616627347 Completed 202011/23/2022 complex cysts bilatera lly; plan 6 month f/u diagnost ic mammo and US 02/2021 Narda Bennett null, [place] - [facility] 3 10:54:17 Mixed urinary incontin ence 145221375 Active 2020 Alisa Negron MD [address], [place], [address], [place] - [facility] 1 13:30:39 History of adenomat ous polyp of colon 489875771 Active 2020 Alisa Negron MD [address], [place], [address], [place] - [facility] 1 13:31:36 Coronary arterios clerosis 83626646 Active 2020 Alisa Negron MD [address], [place], [address], [place] - [facility] 1 19:27:17 Human papillom a virus infectio n 194640642 Active 2020 Alisa Negron MD [address], [place], [address], [place] [facility] 19:27:24 Low grade squamous intraepi thelial lesion on vaginal Papanico laou smear 2988130824 55081 Completed 202011/23/2022 Narda Sabrinalelo velez, [place] - [facility] 3 10:54:07 Mammogra phy abnormal 394866257 Completed 202111/23/2022 nodule UOQ Rt; 6 month f/u Narda Sabrina null, [place] - [facility] 3 10:52:33 Tobacco user 709085439 Active 2021 Alisa Negron MD [address], [place], [address], [place] [facility] 09:34:44 Problem Notes None recorded. Procedures Surgical History [...] completed Chelsea Nieves APRN [address], [place], [address], [place] [facility] 03/22/2021 13:05:16 021 Colposcopy completed Alisa Negron MD [address], [place], [address], [place] [facility] 11/12/2020 19:16:04 021 Colposcopy completed Narda Bennett [place] [facility] 11/20/2020 11:48:33 021 Date of Last Colonoscopy completed Narda [place] [facility] 10/22/2020 09:30:02 021 Colonoscopy completed [place]arda [place] [facility] 10/09/2020 15:34:22 020 LEEP Procedure completed Alisa Negron MD [address], [place], [address], [place] [facility] 08/13/2019 10:51:08 020 LEEP completed Narda [place] [facility] 08/19/2019 16:30:31 020 Colposcopy completed Chelsea Nieves APRN [address], [place], [address], [place] [facility] 07/11/2019 09:44:50 018 Colposcopy completed Chelsea Nieves APRN [address], [place], [address], [place] [facility] 04/20/2018 12:21:08 018 Back Surgery completed Alisa Negron MD [address], [place], [address], [place] [facility] 02/20/2020 09:58:05 014 endoscopy completed Chelsea Nieves APRN [address], [place], [address], [place] [facility] 08/16/2019 16:12:52 014 Colonoscopy completed Chelsea Nieves APRN [address], [place], [address], [place] [facility] 08/16/2019 16:13:10 Cholecystectomy, laparoscopic [...] Name and Address Organization Details Recorded Time [id number] codeine medicatio n Not available Not available [...] in Arterial blood by Pulse oximetry Systolic And Diastolic Provider Name and Address Organization Details Last Updated DateTime 1 156.21 cm 33.6 kg/m2 91495.2 2 g 100 /min 95 % 95 % 126/72 mm[Hg] Rick Bennett [facility] 1 10:56:26 Date Recorded Body height Body mass index (BMI) Body weight Systolic And Diastolic Provider Name and Address Organization Details Last Updated DateTime 10/21/2019 156.21 cm 29.9 kg/m2 78031.37 g 132/72 mm[Hg] Narda Bennett [place] - [facility] 10/21/2019 11:42:00 Date Recorded Body height Body mass index (BMI) Body weight Systolic And Diastolic Provider Name and Address Organization Details Last Updated DateTime 11/12/2020 156.21 cm 33.3 kg/m2 79648.03 g 130/90 mm[Hg] Waleska Boykin [place] - [facility] 11/12/2020 10:24:05 Date Recorded Body weight Heart rate Oxygen saturation Oxygen saturation in Arterial blood by Pulse oximetry Body mass index (BMI) Body height Systolic And Diastolic Provider Name and Address Organization Details Last Updated DateTime 2 52841.8 9 g 94 /min 96 % 96 % 32 kg/m2 156.21 cm 148/80 mm[Hg] Rick Bennett [place] - [facility] 2 11:01:49 Date Recorded Body height Body mass index (BMI) Body weight Systolic And Diastolic Provider Name and Address Organization Details Last Updated DateTime 02/20/2020 156.21 cm 31.4 kg/m2 04383.11 g 132/72 mm[Hg] Narda Bennett [place] - [facility] 02/20/2020 09:28:38 Social History Question Answer Notes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
--- OUTSIDE RECORDS SUMMARY | 2025-04-17 09:30 | XMS_ITS | Encounter Summary ---
Author Organization Healthcare Address [address] [place] [address] Care Team Providers Care Egg Tester Name Role Phone Luis Hatfield MD Primary Care Provider [phone] Encounter Details Date Type Department Care Team (Late st Contact Info) Description 08/19/2024 Lab Requisition [facility] [address] [place] [address] Ochoa Matias MD [address] [place] [address] Malignant neoplasm of bladder, unspecified (CMS/HCC) Social [...] in a long term (including now)? No 07/24/2024 CAGE ASSESSMENT Answer [...] drink first t kimberlyn in the morning (EYE-DEVELOPER PROGRAMMER ANALYST) to steady your nerves or to get [...] Description 05/14/2025 10:40 AM EST Office Visit [facility] [address] [place] [address] Lauren Christine PA [address] [place] [address] documented as of this encounter Procedures Procedure [...] 7:35 AM EDT [facility] Comment:[id number], A3 Test Result see scan 09/05/2024 7:35 AM EDT [facility] See Scanned Result 09/05/2024 7:35 AM EDT [facility] Tissue 07/23/2024 1:18 PM EST 08/19/2024 1:48 PM EDT us Ochoa Matias MD LAB REF LAB BLOOD AND FLUID ORD Final Result [facility] [address] [place] [address] * - AP Miscellaneous Test (07/23/2024 1:18 PM EST) Test name Viviane Keith 09/09/2024 8:04 AM EDT [facility] Comment:[id number], A3 Test Result see scan 09/09/2024 8:04 AM EDT [facility] See Scanned Result 09/09/2024 8:04 AM EDT [facility] Tissue 07/23/2024 1:18 PM EST 08/19/2024 1:48 PM EDT us Ochoa Matias MD LAB REF LAB BLOOD AND FLUID ORD Final Result [facility] [address] [place] [address] documented in this encounter Visit Diagnoses Diagnosis Malignant neoplasm of bladder, unspecified (CMS/HCC) documented in this encounter Additional Health Concerns Assessment Noted Time A Body Mass Index follow-up plan has been documented for the patient 07/25/2024 1:21 PM EST documented as of this encounter Care Teams Egg Tester Relationship Specialty Start Date End Date Luis Hatfield MD [facility] [place] [address] PCP - General 07/24/24 documented as of this encounter
--- OUTSIDE RECORDS SUMMARY | 2025-04-17 09:30 | XMS_ITS | Encounter Summary ---
Author Organization [facility] Address [address] [place] [address] Care Team Providers Care Manager Order Name Role Phone Luis Hatfield MD Primary Care Provider [phone] Encounter Details Date Type Department Care Team [...] first t kimberlyn in the morning (EYE-FINANCIAL SERVICES CONSULTANT) to steady your nerves or to get rid of a hangover? 0 09/11/2024 CAGE Questionnaire Score 0 025 Utilities Answer Date Recorded In the past 12 months has th e [employer], gas, oil, or water company threatened to [...] Office Visit [facility] [address] [place] [address] Lauren Christine PA [address] [place] [address] documented as of this encounter Visit Diagnoses [...] documented as of this encounter Care Teams Manager Order Relationship Specialty Start Date End Date Luis Hatfield MD Replaced by [facility] [address] [address] PCP - General 07/24/24 documented as of this encounter
--- OUTSIDE RECORDS SUMMARY | 2025-04-17 09:30 | XMS_ITS | Encounter Summary ---
Author Organization [facility] Address [address] [id number] Care Team Providers Care Entry Level Manager Name Role Phone Luis Hatfield MD Primary Care Provider Encounter Details Date Type Department Care Team (Late Contact Info) Description 07/12/2024 Telephone [facility] RHE[facility]OLOG[facility] [address] [address] Vicente Wells DO [address] [phone] Social History Tobacco Use Types Packs/Day Years [...] Visit [facility] [address] [address] Vicnete Wells DO [address] [phone] documented as of this encounter Visit Diagnoses Not on filedocumented in this encounter Care Teams Entry Level Manager Relationship Specialty Start Date End Date Luis Hatfield MD [address] [facility] [address] [place] [address] PCP - General Family Medicine 06/13/24 documented as of this encounter
--- OUTSIDE RECORDS SUMMARY | 2025-04-17 09:31 | XMS_ITS | Encounter Summary ---
Author Organization [facility] Address [address] [place] [address] Care Team Providers Care Blister Rust Eradicator Name Role Phone Luis Hatfield MD Primary Care Provider [phone] Encounter Details Date Type Department Care Team (Late Contact Info) Description 12/26/2024 Results Follow-Up [facility] RHEUMATOLOGY [address] [address] Vicente Wells DO [address] [address] Social History Tobacco Use Types Packs/Day Years [...] Office Visit [facility]HE[facility] [address] [address] Vicente Wells DO [address] [id number] documented as of this encounter Visit Diagnoses Not on filedocumented in this encounter Care Teams Blister Rust Eradicator Relationship Specialty Start Date End Date Luis Hatfield MD [address] [place] [address] PCP - General Family Medicine 06/13/24 documented as of this encounter
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
--- OUTSIDE RECORDS SUMMARY | 2025-04-17 09:31 | XMS_ITS | Clinical Summary ---
Author Organization [facility] Address [address] [place] [address] Care Team Providers Care Shine Worker Name Role Phone Luis Hatfield MD Primary Care Provider [phone] Allergies Active Allergy Reactions Criticality Noted Date [...] time each day. 4 Active HYDROcodone-kacie taminophen (Umbarger) 5-325 MG tablet Take 1-2 tablets by [...] Telephone [facility] A Interventional Radiology [address] [place] [address] Sunil Marrufo RN 02/21/2025 Telephone [facility] Oncology [facility] [address] [place] [address] Ochoa Matias MD 02/17/2025 2:07 PM EDT Anesthesia Event [facility] A OPERATING ROOM [address] [place] [phone] Bisi Restrepo, DELROY, Perla Ferrell CRNA 02/17/2025 1:26 PM EDT - 02/17/2025 3:36 PM EDT Surgery [facility]ATING ROOM [address] [place] [phone] Ochoa Matias MD CYSTOSCOPY, WITH URETERAL STENT REPLACEMENT, WITH NEPHROSTOMY TUBE REMOVAL 02/17/2025 11:28 AM EDT - 02/17/2025 3:25 PM EDT Hospital Encounter [facility] OPERATING ROOM [address] [place] [phone] Ochoa Matias MD Other hydronephrosis (Primary Dx) Discharge Disposition: Home or Self Care 02/17/2025 Travel 02/14/2025 Telephone [facility] [address] [place] [phone] Ochoa Matias MD 02/11/2025 Telephone [facility] Urology [address] [place] [phone] Ochoa Matias MD 02/06/2025 Telephone [facility] [address] [place] [phone] Sridevi Ellis Nurse Liaison call 02/05/2025 11:45 AM EDT Office Visit [facility] Multidisciplinary Oncology Clinic [address] [place] [phone] Ochoa Matias MD Malignant neoplasm of urinary bladder, unspecified site (CMS/HCC) (Primary Dx) 02/05/2025 Travel 01/27/2025 12:05 PM EDT - 01/27/2025 7:02 PM EDT Emergency [facility] A Emergency Department [address] [place] [phone] Karolyn Toro MD Owens, Susan E, MD UTI (urinary tract infection), bacterial (Primary Dx); Malfunction of nephrostomy tube (CMS/HCC); Hydronephrosis, unspecified hydronephrosis type Discharge Disposition: Home or Self Care 01/27/2025 Travel 01/27/2025 Telephone [facility] Mult[facility]cology Clinic [address] [place] [phone] Ochoa Matias MD from Last 3 Months [...] drink first t kimberlyn in the morning (EYE-DRY ROOM OPERATOR) to steady your nerves or to [...] Description 05/14/2025 10:40 AM EST Office Visit [facility] Multidisciplinary Oncology Clinic [address] [place] [address] Lauren Christine PA [address] [facility] [address] [place] [phone] Health Maintenance Due Date Last Done Comments UKY-Bone Density Scan 1954 UKY-Medicare Annual Wellness (AWV) 1954 UKY-Infant/Child/Adol SDOH Screenings 1954 [id number] Vaccine (#1) 1959 UKY-DTaP,Tdap,and Td Vaccines (1 [...] this topic Medical Devices Implanted Type Area Fire Code Inspector Device Identifier Shelf Expiration Date Model / Serial / Lot Stent Ureteral Double Pigtail Pos 6fr 26cm - S. - [id number] Implanted:Qty: 1 on 07/23/2024 by Ochoa Matias MD at [facility] Explanted:06/2024 by Ochoa Matias MD (Quantity not on file) Stent N/A: [employer]-[id number] 03/11/2026 [id number] / . / [id number] Description:Patient states h ad stent taken out by Dr. Matias summer Stent Ureteral Double Pigtail Pos 6fr 24cm - [id number] Implanted:Qty: 1 on 02/17/2025 by Ochoa Matias MD at [facility] Right: [employer]-[id number] 12/18/2026 [id number] 0 / / [id number] Stent Ureteral Double Pigtail Pos 6fr 24cm - [id number] Implanted:Qty: 1 on 02/17/2025 by Ochoa Matias MD at [facility] Left: [employer]-[id number] 12/18/2026 [id number] / / [id number] Procedures Procedure Name Priority Date/Time Associated Diagnosis Comments FL LESS THAN 1 HOUR (NON-REPORTABLE) Routine 02/17/2025 3:18 PM EDT PB ANESTHESIA PLACEHOLDER Routine 02/17/2025 2:17 PM EDT FL AN ELECTIVE ENDOTRACHEAL AIRWAY Routine 02/17/2025 2:17 [...] IMG FLUOROSCOPY PROCEDURES Final Result IMAGING * FL AN ELECTIVE ENDOTRACHEAL AIRWAY, PB ANESTHESIA PLACEHOLDER (02/17/2025 2:17 PM EDT) Narrative Bisi Restrepo CRNA, DNP - 02/17/2025 2:17 PM EDT Bisi Restrepo CRNA, DNP 02/17/2025 2:25 PM Airway Date/Time: 02/17/2025 2:17 PM Reason: elective Airway not difficult General Information and Staff Patient location during procedure: [place] STATISTICAL SECRETARY: Bisi Restrepo CRNA, DNP Performed: DELROY Patient [...] ORDERABLES Final Res ult Performing Organization Address [facility] [place] [address] * Urine Stafford Panel (01/27/2025 3:37 PM EDT) Extra Sent for Culture 01/27/2025 6:01 PM EDT [facility] Urine Urine specimen obtained by clean catch procedure / Unknown Non-blood Collection / Unknown 01/27/2025 3:37 PM EDT 01/27/2025 4:29 PM EDT us Karolyn Toro MD LAB URINE ORDERABLES Final Res ult Performing Organization Address [facility] de Phone Number [facility] [address] [place] [address] * Urinalysis Microscopic Examination (01/27/2025 3:37 PM EDT) Urine Urine specimen obtained by clean catch procedure / Unknown Non-blood Collection / Unknown 01/27/2025 3:37 PM EDT 01/27/2025 3:39 PM EDT us Karolyn Toro MD LAB URINE ORDERABLES Final Res ult Performing Organization Address [facility] Co de Phone Number [facility] [address] [place] [address] * (ABNORMAL) Urinalysis with reflex microscopic (Culture NOT Included) (01/27/2025 3:37 PM EDT) Color, Urine Yellow LAB URINALYSIS - AUTOMATED METHOD 01/27/2025 4:47 PM EDT [facility] Clarity, Urine Cloudy LAB URINALYSIS - AUTOMATED METHOD 01/27/2025 4:47 PM EDT [facility] Spec Udell, Urine >1.030(H) 1.005 - 1.030 LAB URINALYSIS - AUTOMATED METHOD 01/27/2025 4:47 PM EDT [facility] pH, Urine 6.5 5.0 - 8.0 LAB URINALYSIS - AUTOMATED METHOD 01/27/2025 4:47 PM EDT [facility] Protein, Urine 100(A) Negative mg/dL LAB URINALYSIS - AUTOMATED METHOD 01/27/2025 4:47 PM EDT [facility] Glucose, Urine Negative Negative mg/dL LAB URINALYSIS - AUTOMATED METHOD 01/27/2025 4:47 PM EDT [facility] Ketones, Urine Negative Negative mg/dL LAB URINALYSIS - AUTOMATED METHOD 01/27/2025 4:47 PM EDT [facility] Blood, Urine Moderate(A) Negative LAB URINALYSIS - AUTOMATED METHOD 01/27/2025 4:47 PM EDT [facility] Bilirubin, Urine Negative Negative LAB URINALYSIS - AUTOMATED METHOD 01/27/2025 4:47 PM EDT [facility] Urobilinogen, Urine 1.0 0.2 to 1.0 mg/dL LAB URINALYSIS - AUTOMATED METHOD 01/27/2025 4:47 PM EDT [facility] Leukocytes, Urine Large(A) Negative LAB URINALYSIS - AUTOMATED METHOD 01/27/2025 4:47 PM EDT [facility] Nitrite, Urine Positive(A) Negative LAB URINALYSIS - AUTOMATED METHOD 01/27/2025 4:47 PM EDT [facility] RBC, Urine 16 - 30(A) 0 to 3 /HPF LAB URINALYSIS - AUTOMATED METHOD 01/27/2025 4:47 PM EDT [facility] Comment:This result was prev iously suppressed from the chart. WBC, Urine >50(A) 0 to 5 /HPF LAB URINALYSIS - AUTOMATED METHOD 01/27/2025 4:47 PM EDT [facility] Comment:This result was prev iously suppressed from the chart. Squamous Epithelial Cells 0 - 2 0 to 5 /HPF LAB URINALYSIS - AUTOMATED METHOD 01/27/2025 4:47 PM EDT [facility] Comment:This result was prev iously suppressed from the chart. Hyaline Casts 11 - 20(A) 0 to 5 /LPF LAB URINALYSIS - AUTOMATED METHOD 01/27/2025 4:47 PM EDT [facility] Comment:This result was prev iously suppressed from the chart. Bacteria, Urine Present Negative LAB URINALYSIS - AUTOMATED METHOD 01/27/2025 4:47 PM EDT [facility] Comment:This result was prev iously suppressed from the chart. Urine Urine specimen obtained by clean catch procedure / Unknown Non-blood Collection / Unknown 01/27/2025 3:37 PM EDT 01/27/2025 3:39 PM EDT us Karolyn Toro MD LAB URINE ORDERABLES Final Res ult Performing Organization Address City/[facility]/ZIP Co de Phone Number [facility] [address] [place] [address] * Urine Culture (01/27/2025 3:37 PM EDT) Culture >=100,000 CFU/mL Mixed urogenital , fecal, or skin meg present. 01/29/2025 1:54 PM EDT [facility] Comment:This is a corrected result. Previous organism was Gram Negative Elliot on 01/28/2025 at 1539 EDT. Urine Urine specimen obtained by clean catch procedure / Unknown Non-blood Collection / Unknown 01/27/2025 3:37 PM EDT 01/27/2025 4:29 PM EDT us Karolyn Toro MD LAB MICROBIOLOGY - GENERAL ORD ERABLES Final Result Performing Organization Address [facility]/ZIP Co de Phone Number [facility] [address] [place] [address] * CT Abdomen Pelvis w IV Contrast [...] LAB HEMATOLOGY METHOD 01/27/2025 12:11 PM EDT [facility] RBC Count 4.17 3.90 - 5.20 10*6/uL LAB HEMATOLOGY METHOD 01/27/2025 12:11 PM EDT [facility] HGB 12.7 11.2 - 15.7 g/dL LAB HEMATOLOGY METHOD 01/27/2025 12:11 PM EDT [facility] HCT 36.1 34.0 - 45.0 % LAB HEMATOLOGY METHOD 01/27/2025 12:11 PM EDT [facility] Platelet Count 439(H) 155 - 369 10*3/uL LAB HEMATOLOGY METHOD 01/27/2025 12:11 PM EDT [facility] MCV 87 79 - 98 fL LAB HEMATOLOGY METHOD 01/27/2025 12:11 PM EDT [facility] MCH 30.5 26.0 - 32.0 pg LAB HEMATOLOGY METHOD 01/27/2025 12:11 PM EDT [facility] MCHC 35.2 30.7 - 35.5 g/dL LAB HEMATOLOGY METHOD 01/27/2025 12:11 PM EDT [facility] RDW 17.8(H) 11.5 - 14.5 % LAB HEMATOLOGY METHOD 01/27/2025 12:11 PM EDT [facility] MPV 8.1(L) 8.8 - 12.5 fL LAB HEMATOLOGY METHOD 01/27/2025 12:11 PM EDT [facility] nRBC 0.0 <=0.0 per 100 WBCs LAB HEMATOLOGY METHOD 01/27/2025 12:11 PM EDT [facility] Differential Type Automated LAB HEMATOLOGY METHOD 01/27/2025 12:11 PM EDT [facility] Neutrophils % 67 % LAB HEMATOLOGY METHOD 01/27/2025 12:11 PM EDT [facility] Lymphocytes % 18 % LAB HEMATOLOGY METHOD 01/27/2025 12:11 PM EDT [facility] Monocytes % 13 % LAB HEMATOLOGY METHOD 01/27/2025 12:11 PM EDT [facility] Eosinophils % 1 % LAB HEMATOLOGY METHOD 01/27/2025 12:11 PM EDT [facility] Basophils % 1 % LAB HEMATOLOGY METHOD 01/27/2025 12:11 PM EDT [facility] Immature Granulocytes % 0 % LAB HEMATOLOGY METHOD 01/27/2025 12:11 PM EDT [facility] Neutrophils Absolute 5.02 1.60 - 6.10 10*3/uL LAB HEMATOLOGY METHOD 01/27/2025 12:11 PM EDT [facility] Lymphocytes Absolute 1.32 1.20 - 3.90 10*3/uL LAB HEMATOLOGY METHOD 01/27/2025 12:11 PM EDT [facility] Monocytes Absolute 0.95(H) 0.30 - 0.90 10*3/uL LAB HEMATOLOGY METHOD 01/27/2025 12:11 PM EDT [facility] Eosinophils Absolute 0.09 0.00 - 0.50 10*3/uL LAB HEMATOLOGY METHOD 01/27/2025 12:11 PM EDT [facility] Basophils Absolute 0.08 0.00 - 0.10 10*3/uL LAB HEMATOLOGY METHOD 01/27/2025 12:11 PM EDT [facility] Immature Granulocytes Absolute 0.02 0.00 - 0.06 10*3/uL LAB HEMATOLOGY METHOD 01/27/2025 12:11 PM EDT [facility] Blood Venous blood specimen / Unknown Venipuncture / Unknown 01/27/2025 12:04 PM EDT 01/27/2025 12:09 PM EDT Narrative [facility] - 01/27/2025 12:11 PM EDT Therapeutic decision making should be based on absolute values, rather than percentages. us Karolyn Toro MD LAB BLOOD ORDERABLES Final Res ult [facility] [address] [place] [address] * (ABNORMAL) BMP (01/27/2025 12:04 PM EDT) Glucose, Plasma 119(H) 74 - 99 mg/dL 01/27/2025 12:32 PM EDT [facility] BUN, Plasma 13 8 - 23 mg/dL 01/27/2025 12:32 PM EDT [facility] Creatinine, Plasma 0.94 0.60 - 1.10 mg/dL 01/27/2025 12:32 PM EDT [facility] BUN/Creatinine Ratio 14 01/27/2025 12:32 PM EDT [facility] Sodium, Plasma 132(L) 136 - 145 mmol/L 01/27/2025 12:32 PM EDT [facility] Potassium, Plasma 4.0 3.6 - 4.9 mmol/L 01/27/2025 12:32 PM EDT [facility] Chloride, Plasma 96(L) 97 - 107 mmol/L 01/27/2025 12:32 PM EDT [facility] CO2, Plasma 22 22 - 29 mmol/L 01/27/2025 12:32 PM EDT [facility] Anion Gap 14 6 - 16 mmol/L 01/27/2025 12:32 PM EDT [facility] Total Calcium, Plasma 9.9 8.9 - 10.2 mg/dL 01/27/2025 12:32 PM EDT [facility] eGFRcr 65.4 mL/min/1.7 3m*2 01/27/2025 12:32 PM EDT [facility] Comment:Reported eGFRcr in m L/min/1.73m2 is based the CKD-EPI 2020 equation that does not use a race coefficient. Blood Venous blood specimen / Unknown Venipuncture / Unknown 01/27/2025 12:04 PM EDT 01/27/2025 12:09 PM EDT us Karolyn Toro MD LAB BLOOD ORDERABLES Final Res ult [facility] [address] [place] [address] * Hepatitis C Antibody - ED (07/22/2024 7:54 PM EST) Hepatitis C Antibody Negative Negative 07/22/2024 9:11 PM EST [facility] Blood Venous blood specimen / Unknown Venipuncture / Unknown 07/22/2024 7:54 PM EST 07/22/2024 8:09 PM EST us Luz MCCABE LAB BLOOD ORDERABLES Missy l Result [facility] [address] [place] [address] from Last 3 Months or Most Recently Relevant to Health Maintenance Insurance [facility] MEDICARE Advance Directives * Full [...] Patient has decision-making capacity? Yes Care Teams Shine Worker Relationship Specialty Start Date End Date Luis Hatfield MD [address] [facility] [address] [place] [phone] (work) PCP - General 07/24/24
--- OUTSIDE RECORDS SUMMARY | 2025-04-17 09:31 | XMS_ITS ---
Author Organization [facility] Address [address] [place] [address] Care Team Providers Care Wood Heel Cementer Name Role Phone Luis Hatfield MD Primary Care Provider [phone] Active Problems Problem Noted Date Diagnosed Date [...]
[2025-04-17 09:44] LABS: Hematocrit 36.3 % (37.0-47.0); Hemoglobin 12.6 g/dL (12.2-16.2); Immature Granulocytes % 0.2 %; Mean Corpuscular HGB Conc 34.7 g/dL (31.8-35.4); Mean Corpuscular Hemoglobin 32.0 pg (27.0-31.2); Mean Corpuscular Volume 92.1 fl (81-99); Nucleated Red Blood Cells % 0 %; Platelet Count 238 K/mm3 (142-424); Red Blood Count 3.94 M/mm3 (4.20-5.40); Red Cell Distribution Width-SD 51.8 fL; White Blood Count 6.4 K/mm3 (4.8-10.8)
[2025-04-17 10:09] LABS: Albumin Level 4.5 g/dl (3.5-5.0); Chloride 100 mmol/L (98-107); Sodium 134 mmol/L (136-145)
[2025-04-17 10:10] LABS: Potassium 3.9 mmoL/L (3.5-5.1)
[2025-04-17 10:12] LABS: Alanine Aminotransferase 14 U/L (12-78); Albumin/Globulin Ratio 2.1 (1.1-1.8); Alkaline Phosphatase 79 U/L (38-126); Anion Gap 9.9 mEq/L (5-15); Aspartate Amino Transferase 33 U/L (14-36); Bilirubin,Total 1.3 mg/dl (0.2-1.3); Blood Urea Nitrogen 11 mg/dl (7-17); Carbon Dioxide 28 mmol/L (22.0-30.0); Creatinine Clearance Estimated 52 mL/min (50-200); Creatinine,Serum 0.80 mg/dl (0.52-1.04); Estimated Glomerular Filt Rate 71 ml/min (>60); GFR (African American) 86 ML/MIN (>60); Globulin 2.1 g/dL (1.3-3.2); Total Protein,Serum 6.6 g/dl (6.3-8.2)
[2025-04-17 10:13] LABS: Calcium 8.9 mg/dl (8.4-10.2); Glucose 110 mg/dl (74-100)
[2025-04-17 10:44] LABS: Thyroid Stimulating Hormone 1.09 uIU/mL (0.465-4.68)
[2025-04-17] MEDS: PEMBROLIZUMAB 200 MG in 0.9 % SODIUM CHLORIDE 50 ML 116 MG IV (10:50)
[2025-04-17 10:55] VITALS: BP 118/57; PULSE 84; RESP 16; O2SAT 94
[2025-04-17 11:10] VITALS: BP 106/62; PULSE 74; RESP 16
[2025-04-17 11:25] VITALS: BP 103/60; PULSE 74; RESP 16
== END 2025-04-17 23:59 | disposition home or self-care (01) ==
LOC: INF 09:23
PROVIDERS: PCP Family Medicine; Visit Provider Internal Medicine Medical Oncology
DX: C67.9 Malignant neoplasm of bladder, unspecified (principal); Z51.11 Encounter for antineoplastic chemotherapy
CPT/HCPCS: 80053; 82024; 82533; 84443; 85025; 96413; J9271

== ENCOUNTER 2025-05-15 09:50 | Outpatient (CLI) | payer MEDICARE, SELFPAY ==
[2025-05-15 09:51] VITALS: BMI 22.6
[2025-05-15 10:04] LABS: Hematocrit 36.8 % (37.0-47.0); Hemoglobin 13.1 g/dL (12.2-16.2); Immature Granulocytes % 0.5 %; Mean Corpuscular HGB Conc 35.6 g/dL (31.8-35.4); Mean Corpuscular Hemoglobin 31.9 pg (27.0-31.2); Mean Corpuscular Volume 89.5 fl (81-99); Nucleated Red Blood Cells % 0 %; Platelet Count 343 K/mm3 (142-424); Red Blood Count 4.11 M/mm3 (4.20-5.40); Red Cell Distribution Width-SD 47.6 fL; White Blood Count 8.3 K/mm3 (4.8-10.8)
--- OUTSIDE RECORDS SUMMARY | 2025-05-15 10:09 | XMS_ITS | Clinical Summary ---
Author Organization [facility] Address [address] [place] [address] Care Team Providers Care Member Of Parliament Name Role Phone Luis Hatfield MD Primary Care Provider [phone] Allergies Active Allergy Reactions Criticality Noted Date [...] time each day. 4 Active HYDROcodone-kacie taminophen (Felton) 5-325 MG tablet Take 1-2 tablets by [...] Encounters Date Type Department Care Team Description 05/07/2025 Telephone [facility] Multidisciplinary Oncology Clinic [address] [place] [phone] Lauren Christine 03/04/2025 Telephone [facility] A Interventional Radiology [address] [place] [address] Sunil Marrufo RN 02/21/2025 Telephone [facility] Multidisciplinary Oncology Clinic [address] [place] [address] Ochoa Matias MD 02/17/2025 2:07 PM EDT Anesthesia Event [facility] A OPERATING ROOM [address] [place] [address] Bisi Restrepo CRNA, Perla Ferrell CRNA 02/17/2025 1:26 PM EDT - 02/17/2025 3:36 PM EDT Surgery [facility] A OPERATING ROOM [address] [place] [phone] Ochoa Matias MD CYSTOSCOPY, WITH URETERAL STENT REPLACEMENT, WITH NEPHROSTOMY TUBE REMOVAL 02/17/2025 11:28 AM EDT - 02/17/2025 3:25 PM EDT Hospital Encounter [facility] A OPERATING ROOM [address] [place] [address] Ochoa Matias MD Other hydronephrosis (Primary Dx) Discharge Disposition: Home or Self Care 02/17/2025 Travel 02/14/2025 Telephone [facility] Multidisciplinary Oncology Clinic [address] [place] [phone] Ochoa Matias MD from Last 3 Months [...] time in the past 12 m [facility], were you homeless or living in a [...] drink first t kimberlyn in the morning (EYE-COKE DRAWER HAND) to steady your nerves or to [...] Care Team (Late st Contact Info) Description 06/11/2025 10:20 AM EST Office Visit [facility] Multidisciplinary Oncology Clinic [address] [place] [address] Lauren Christine PA [address] [place] [address] Health Maintenance Due Date Last Done Comments [facility]Y-Bone Density Scan 1954 UKY-Medicare Annual Wellness (AWV) 1954 [facility]Y-/Child/Adol SDOH Screenings 1955 [id number] Vaccine (#1) 1959 UKY-DTaP,Tdap,and Td Vaccines (1 [...] this topic Medical Devices Implanted Type Area Neonatal Doctor Device Identifier Shelf Expiration Date Model / Serial / Lot Stent Ureteral Double Pigtail Pos 6fr 26cm - S. - [id number] Implanted:Qty: 1 on 07/23/2024 by Ochoa Matias MD at [facility] Explanted:06/2024 by Ochoa Matias MD (Quantity not on file) Stent N/A: [employer]-[id number] 03/11/2026 [id number] / . / [id number] Description:Patient states h ad stent taken out by Dr. Matias summer Stent Ureteral Double Pigtail Pos 6fr 24cm - [id number] Implanted:Qty: 1 on 02/17/2025 by Ocoha Matias MD at [facility] Right: [employer]-[id number] 12/18/2026 [id number] 0 / / [id number] Stent Ureteral Double Pigtail Pos 6fr 24cm - [id number] Implanted:Qty: 1 on 02/17/2025 by Ochoa Matias MD at [facility] Left: [employer]-[id number] 12/18/2026 [id number] / / [id number] Procedures Procedure Name Priority Date/Time Associated Diagnosis Comments FL LESS THAN 1 HOUR (NON-REPORTABLE) Routine 02/17/2025 3:18 PM EDT PB ANESTHESIA PLACEHOLDER Routine 02/17/2025 2:17 PM EDT MA AN ELECTIVE ENDOTRACHEAL AIRWAY Routine 02/17/2025 2:17 PM EDT CYSTOSCOPY, WITH URETERAL STENT REPLACEMENT 02/17/2025 1:54 PM EDT Other hydronephrosis HEPATITIS C ANTIBODY - ED W/REFLEX TO [...] IMG FLUOROSCOPY PROCEDURES Final Result IMAGING * MA AN ELECTIVE ENDOTRACHEAL AIRWAY, PB ANESTHESIA PLACEHOLDER (02/17/2025 2:17 PM EDT) Narrative Bisi Restrepo CRNA, DNP - 02/17/2025 2:17 PM EDT Bisi Restrepo CRNA, DNP 02/17/2025 2:25 PM Airway Date/Time: 02/17/2025 2:17 PM Reason: elective Airway not difficult General Information and Staff Patient location during procedure: OR PELT SHEARER: Bisi Restrepo CRNA, DNP Performed: PELT SHEARER Patient Condition Indications for airway management: anesthesia [...] Additional Comments Atraumatic. No change to dentition. Joey Meier MD ANESTHESIA ORDERABLES Final Re sult * Hepatitis C Antibody - ED (07/22/2024 7:54 PM EST) Hepatitis C Antibody Negative Negative 07/22/2024 9:11 PM EST [facility] Blood Venous blood specimen / Unknown Venipuncture / Unknown 07/22/2024 7:54 PM EST 07/22/2024 8:09 PM EST Luz MCCABE LAB BLOOD ORDERABLES Missy sun Result [facility] [address] [place] [address] from Last 3 Months or Most Recently Relevant to Health Maintenance Insurance [facility] MEDICARE Advance Directives * Full [...] Patient has decision-making capacity? Yes Care Teams Member Of Parliament Relationship Specialty Start Date End Date Luis Hatfield MD [address] [facility] [address] [phone] PCP - General 07/24/24
--- OUTSIDE RECORDS SUMMARY | 2025-05-15 10:09 | XMS_ITS | Encounter Summary ---
Author Organization Healthcare Address [address] [place] [address] Care Team Providers Care Devulcanizer Charger Name Role Phone Luis Hatfield MD Primary Care Provider [phone] Encounter Details Date Type Department Care Team (Late st Contact Info) Description 05/07/2025 Telephone [facility] Multidisciplinary Oncology Clinic [address] [place] [phone] [place] [address] Social History Tobacco Use Types Packs/Day Years [...] any time in the past 12 m [facility], were you homeless or living in [...] Have you had a drink first t ikmberlyn in the morning (EYE-DRYERMAN/WOMAN) to steady your nerves or to get [...] encounter Miscellaneous Notes * Telephone Encounter - Vera Moraes RN - 05/07/2025 1:29 PM EST Called and spoke with patient. Patient educated that appointment on 05/14 is for a 3 month follow upfrom surgery with Dr. Matias. Patient requested appointment to be rescheduled du to chemo appt same day. Appt rescheduled to 06/11. Patient has voiced understanding and has no further questions at this time. * Telephone Encounter - Maury Lebron - 05/07/2025 11:40 AM EST Patient Phone Message Reason for Call: pt calling to see what exactly her appt for 05/14 is for it has a 3 month follow-upshe said what is the follow up? Best contact number and optimal time of day to reach caller: [phone] Note: Please do not reply to this message. Follow-up communication and further actions as a result of this message need to be communicated with the patient directly, if the patient is not active onMyChart. If the patient is active on MyChart, they will receive notification of the communication/outcome via [employer]. documented in this encounter Plan of Treatment Upcoming Encounters Date Type Department Care Team (Late st Contact Info) Description 06/11/2025 10:20 AM EST Office Visit [facility] Multidisciplinary Oncology Clinic [address] [place] [address] Lauren Christine PA [address] [place] [address] documented as of this encounter Visit Diagnoses [...] documented as of this encounter Care Teams Devulcanizer Charger Relationship Specialty Start Date End Date Luis Hatfield MD [address] [place] [address] PCP - General 07/24/24 documented as of this encounter
--- OUTSIDE RECORDS SUMMARY | 2025-05-15 10:09 | XMS_ITS | Encounter Summary ---
Author Organization [facility] Address [address] [place] [address] Care Team Providers Care Onshore Diver Name Role Phone Luis Hatfield MD Primary Care Provider [phone] Encounter Details Date Type Department Care Team (Late Contact Info) Description 12/26/2024 Results Follow-Up [facility] RHEUMATOLOGY [address] [address] Vicente Wells DO [address] [address] Social History Tobacco Use Types Packs/Day Years [...] 10:45 AM EST Office Visit [facility] RHEUMAT[facility]Y [address] [address] Vicente Wells DO [address] [id number] documented as of this encounter Visit Diagnoses Not on filedocumented in this encounter Care Teams Onshore Diver Relationship Specialty Start Date End Date Luis Hatfield MD [address] [place] [address] [place] [address] PCP - General Family Medicine 06/13/24 documented as of this encounter
--- OUTSIDE RECORDS SUMMARY | 2025-05-15 10:09 | XMS_ITS ---
Author Organization [facility] Address [address] [place] [address] Care Team Providers Care Tank Systems Maintainer Name Role Phone Luis Hatfield MD Primary Care Provider [phone] Active Problems Problem Noted Date Diagnosed Date [...]
--- OUTSIDE RECORDS SUMMARY | 2025-05-15 10:09 | XMS_ITS | Clinical Summary ---
Author Organization [facility] Address [address] [place] [address] Care Team Providers Care Overlock Elastic Attacher Name Role Phone Luis Hatfield MD Primary Care Provider [phone] Allergies Active Allergy Reactions Criticality Noted Date [...] DNA 13.0 (<4.0), Centromere and Chromatin normal, RAGS LABORER and SCL 70 normal, Christine normal, SSA and SSB normal, total bilirubin 1.4, Glucose 117, CMP was ok otherwise, CCP negative, CRP Normal, RF 110 (<14.0 normal), ESR normal, TSH normal * Medications/treatments/interventions tried include: Tylenol, meloxicam, Advil, CBD oil, Tumeric, Aspirin, Plaquenil, she has seen podiatry (Miky Steele DPM), she has seen picture painter (Dr. Jed Trevino), Ketamine, gabapentin, She [...] DNA 13.0 (<4.0), Centromere and Chromatin normal, RAGS LABORER and SCL 70 normal, Christine normal, SSA and SSB normal, total bilirubin 1.4, Glucose 117, CMP was ok otherwise, CCP negative, CRP Normal, RF 110 (<14.0 normal), ESR normal, TSH normal * Medications/treatments/interventions tried include: Tylenol, meloxicam, Advil, CBD oil, Tumeric, Aspirin, Plaquenil, she has seen podiatry (Miky Steele DPM), she has seen picture painter (Dr. Jed Trevino), Ketamine, gabapentin, She [...] DNA 13.0 (<4.0), Centromere and Chromatin normal, RAGS LABORER and SCL 70 normal, Christine normal, SSA and SSB normal, total bilirubin 1.4, Glucose 117, CMP was ok otherwise, CCP negative, CRP Normal, RF 110 (<14.0 normal), ESR normal, TSH normal * Medications/treatments/interventions tried include: Tylenol, meloxicam, Advil, CBD oil, Tumeric, Aspirin, Plaquenil, she has seen podiatry (Miky Steele DPM), she has seen picture painter (Dr. Jed Trevino), Ketamine, gabapentin, She has had back injections 1. Continue/refill hydroxychloroquine 2. Check labs 3. Continue/refill meloxicam PRN 4. We gave her a handout on rheumatoid arthritis to take home and review 5. Follow up in 4-6 months Resolved Problems Problem Noted Date Diagnosed Date Resolved Date Rheumatoid arthritis 12/25/2023 025 Family History Medical History Relation Name Comments [...] [facility] RHE[facility] [address] [facility] [address] [place] [address] Vicente Wells DO 330 [facility] [address] [place] [address] Health Maintenance Due Date Last Done Comments DXA SCAN 1954 COVID-19 Vaccine (#1) 1959 MAMMOGRAM 1994 TDAP/TD VACCINES (1 - Tdap) 08/16/1996 08/15/1996 COLOGUARD 1999 COLON CANCER SCREENING 5 YEA R SIGMOIDOSCOPY 1999 CT COLONOGRAPHY 1999 FECAL OCCULT BLOOD TEST 1999 FIT Testing (1 year) 1999 ZOSTER VACCINE (2 of 2) 04/16/2020 02/20/2020 ANNUAL WELLNESS VISIT 10/31/2023 INFLUENZA VACCINE 01/10/2025 Pneumococcal Vaccine 50+ (2 of 2 - PCV) 04/10/2025 1 COLONOSCOPY 07/16/2030 07/16/2020, 01/24/2014 COLORECTAL CANCER SCREENING 07/16/2030 HEPATITIS C SCREENING Completed 07/22/[address] [place] [address] MEDICARE ADVANTAGE PPO Care Teams Overlock Elastic Attacher Relationship Specialty Start Date End Date Luis Hatfield MD [email or web address] [address] [facility] [address] [place] [address] PCP - General Family Medicine 06/13/24
--- OUTSIDE RECORDS SUMMARY | 2025-05-15 10:09 | XMS_ITS | Encounter Summary ---
Author Organization [facility] Address [address] [id number] Care Team Providers Care Credit Adjuster Name Role Phone Luis Hatfield MD Primary Care Provider [phone] Encounter Details Date Type Department Care Team (Late Contact Info) Description 07/12/2024 Telephone [facility] RHEUMATOLOGY [address] [address] Vicente Wells DO [address] [phone] Social History Tobacco Use Types Packs/Day Years [...] Visit [facility] RHEUM[facility] [address] [address] Vicente Wells DO [address] [id number] documented as of this encounter Visit Diagnoses Not on filedocumented in this encounter Care Teams Credit Adjuster Relationship Specialty Start Date End Date Luis Hatfield MD [address] [facility] [address] [place] [address] PCP - General Family Medicine 06/13/24 documented as of this encounter
--- OUTSIDE RECORDS SUMMARY | 2025-05-15 10:09 | XMS_ITS | Encounter Summary ---
Author Organization [facility] Address [address] [id number] Care Team Providers Care Yard Stocker Name Role Phone Luis Hatfield MD Primary Care Provider [phone] Encounter Details Date Type Department Care Team ([facility] Contact Info) Description 07/12/2024 Telephone [facility] RHEUMATOLOGY [address] [address] Santiago Anders MD [address] [phone] Social History Tobacco Use Types Packs/Day Years [...] Description 07/09/2025 10:45 AM EST Office Visit [facility] RHEUMATOLOGY [address] [address] Vicente Wells DO [address] [address] documented as of this encounter Visit Diagnoses Not on filedocumented in this encounter Care Teams Yard Stocker Relationship Specialty Start Date End Date Luis Hatfield MD [address] [facility] [address] [place] [phone] PCP - General Family Medicine 06/13/24 documented as of this encounter
--- OUTSIDE RECORDS SUMMARY | 2025-05-15 10:09 | XMS_ITS | Encounter Summary ---
Author Organization [facility] Address [address] [place] [address] Care Team Providers Care Accredited Farm Manager Name Role Phone Luis Hatfield MD Primary Care Provider [phone] Encounter Details Date Type Department Care Team (Late st Contact Info) Description 08/19/2024 Lab Requisition [facility] [address] [place] [address] Ochoa Matias MD [address] [place] [address] Malignant neoplasm of bladder, unspecified (CMS/HCC) Social History Tobacco Use Types Packs/Day Years Used Date Smoking Tobacco: Every Day Cigarettes 0.5 25.9 Started: 1999 Smokeless Tobacco: Never Alcohol Use [...] time in the past [address] [facility], were you homeless or living in a longterm (including now)? No 07/24/2024 CAGE ASSESSMENT Answer [...] drink first t kimberlyn in the morning (EYE-LEGAL STENOGRAPHER) to steady your nerves or to get [...] Description 06/11/2025 10:20 AM EST Office Visit [facility] Multidisciplinary Oncology Clinic [address] [place] [address] Lauren Christine PA [address] [place] [address] documented as of this encounter Procedures Procedure [...] name Selwyn Geller 09/05/2024 7:35 AM EDT [facility] Comment:[id number], A3 Test Result see scan 09/05/2024 7:35 AM EDT [facility] See Scanned Result 09/05/2024 7:35 AM EDT [facility] Tissue 07/23/2024 1:18 PM EST 08/19/2024 1:48 PM EDT us Ochoa Matias MD LAB REF LAB BLOOD AND FLUID ORD Final Result [facility] [address] [place] [address] * - AP Miscellaneous Test (07/23/2024 1:18 PM EST) Test name Viviane Keith 09/09/2024 8:04 AM EDT [facility] Comment:[id number], A3 Test Result see scan 09/09/2024 8:04 AM EDT [facility] See Scanned Result 09/09/2024 8:04 AM EDT [facility] Tissue 07/23/2024 1:18 PM EST 08/19/2024 1:48 PM EDT us Ochoa Matias MD LAB REF LAB BLOOD AND FLUID ORD Final Result [facility] [address] [place] [address] documented in this encounter Visit Diagnoses Diagnosis Malignant neoplasm of bladder, unspecified (CMS/HCC) documented in this encounter Additional Health Concerns Assessment Noted Time A Body Mass Index follow-up plan has been documented for the patient 07/25/2024 1:21 PM EST documented as of this encounter Care Teams Accredited Farm Manager Relationship Specialty Start Date End Date Luis Hatfield MD [facility] [place] [address] PCP - General 07/24/24 documented as of this encounter
[2025-05-15 10:10] LABS: Chloride 98 mmol/L (98-107)
[2025-05-15 10:11] LABS: Albumin Level 3.4 g/dl (3.5-5.0); Potassium 3.1 mmoL/L (3.5-5.1); Sodium 135 mmol/L (136-145)
[2025-05-15 10:13] LABS: Alanine Aminotransferase 13 U/L (12-78); Aspartate Amino Transferase 24 U/L (14-36); Blood Urea Nitrogen 9 mg/dl (7-17); Creatinine Clearance Estimated 46 mL/min (50-200); Creatinine,Serum 0.70 mg/dl (0.52-1.04); Estimated Glomerular Filt Rate 82 ml/min (>60); GFR (African American) 100 ML/MIN (>60)
[2025-05-15 10:14] LABS: Albumin/Globulin Ratio 1.3 (1.1-1.8); Alkaline Phosphatase 82 U/L (38-126); Anion Gap 13.1 mEq/L (5-15); Bilirubin,Total 0.8 mg/dl (0.2-1.3); Calcium 8.9 mg/dl (8.4-10.2); Carbon Dioxide 27 mmol/L (22.0-30.0); Globulin 2.6 g/dL (1.3-3.2); Glucose 122 mg/dl (74-100); Total Protein,Serum 6.0 g/dl (6.3-8.2)
[2025-05-15 10:56] LABS: Thyroid Stimulating Hormone 0.67 uIU/mL (0.465-4.68)
[2025-05-15] MEDS: SODIUM CHLORIDE 0.9% 10ML FLUSH SYRINGE 10 ML IV (11:00)
[2025-05-15 11:08] VITALS: BP 96/54; PULSE 64; RESP 18; TEMP 36.3; O2SAT 96
[2025-05-15] MEDS: PEMBROLIZUMAB 400 MG in 0.9 % SODIUM CHLORIDE 50 ML 132 MG IV (11:08)
[2025-05-15 12:05] VITALS: BP 118/64; PULSE 79; RESP 18; O2SAT 97
== END 2025-05-15 23:59 | disposition home or self-care (01) ==
LOC: INF 09:51
PROVIDERS: PCP Family Medicine; Visit Provider Internal Medicine Medical Oncology
DX: C67.9 Malignant neoplasm of bladder, unspecified (principal); Z51.11 Encounter for antineoplastic chemotherapy
CPT/HCPCS: 80053; 82024; 82533; 84443; 85025; 96413; J9271